=== PATIENT | female | born 1940 | race Caucasian/White ===

== ENCOUNTER → 2020-10-03 10:35 | Outpatient (BNVA) | payer MEDICARE, SELFPAY | PROVIDERS: PCP Internal Medicine; Referring Provider Internal Medicine; Visit Provider Internal Medicine | DX: I25.10 Atherosclerotic heart disease of native coronary artery without angina pectoris (principal); I48.19 Other persistent atrial fibrillation; I11.0 Hypertensive heart disease with heart failure; I50.32 Chronic diastolic (congestive) heart failure; I73.9 Peripheral vascular disease, unspecified; Z79.01 Long term (current) use of anticoagulants; Z79.82 Long term (current) use of aspirin; Z79.899 Other long term (current) drug therapy; Z95.1 Presence of aortocoronary bypass graft | CPT/HCPCS: 99212 ==

== ENCOUNTER 2020-12-11 08:11 | Inpatient (IN) | payer MEDICARE, SELFPAY ==
[2020-12-11] VITALS (10 sets, daily range): BP systolic 113–174; BP diastolic 62–93; PULSE 98–139; RESP 18–26; TEMP 36.6–36.8; O2SAT 92–100; BMI 26.6
--- NOTE | 2020-12-11 08:31 | ED_ITS ---
HPI - SOB/Dyspnea General Chief Complaint: Dyspnea Stated Complaint: sob Time Seen by Provider: 12/11/20 08:31 Source: EMS Mode of arrival: EMS Limitations: no limitations History of Present Illness HPI Narrative: This is a 80-year-old female with past medical history that is significant for congestive heart failure with preserved ejection fraction, peripheral vascular disease, hypertension, hyper cholesterolemia who is status post coronary artery bypass June 2020 also history of atrial fibrillation on chronic anticoagulation on Eliquis who presents from home with complaint of shortness of breath since last night. Patient reports feels very shortness of breath at rest. She denies any chest pain. For past couple days however no other symptoms. No recent travel or sick contacts. Denies any prior history of COPD or asthma. Upon arrival found to have oxygen level of 90 on room air with respiratory rate of 30. On 2 L nasal cannula improved to 95%. MD elicited complaint: shortness of breath Context: recent illness Timing: constant Severity: moderate Treatment prior to arrival: oxygen Related Data Home Medications Medication Instructions Recorded Confirmed apixaban 5 mg tablet 5 mg PO BID 09/04/20 12/11/20 aspirin 81 mg tablet,delayed 81 mg PO DAILY 09/04/20 12/11/20 release lisinopril 5 mg tablet 5 mg PO DAILY 09/04/20 12/11/20 multivitamin 1 tab PO DAILY 09/04/20 12/11/20 omeprazole 20 mg capsule,delayed 20 mg PO DAILY 09/04/20 12/11/20 release sennosides 8.6 mg tablet 8.6 mg PO BEDTIME tab 09/04/20 12/11/20 furosemide 20 mg tablet 20 mg PO QAM tab 12/07/20 12/11/20 metoprolol tartrate 25 mg PO BID 12/11/20 12/11/20 Previous Rx's Medication Instructions Recorded atorvastatin 40 mg tablet 40 mg PO DAILY #30 tab 10/23/20 Allergies Allergy/AdvReac Type Severity Reaction Status Date / Time latex Allergy Mild rash Verified 10/03/20 10:51 simvastatin [Simvastatin] Allergy Mild NAUSEA Verified 10/03/20 10:51 Review of Systems Review of Systems: Constitutional: No Weight loss, No Fever, No Chills, No Night Sweats, No Fatigue, No Malaise ENT/Mouth: No Hearing loss, No Ear Pain, No Nasal Congestion, No Sinus Pain, No Hoarseness, No sore throat, No Rhinorrhea, No Swallowing Difficulty Eyes: No Eye Pain, No Swelling, No Redness, No Foreign Body, No Discharge, No Vision Changes Cardiovascular: No Chest Pain, + SOB, + Dyspnea on Exertion, No Edema, No Palpitations Respiratory: + Cough, No Sputum, + Wheezing Gastrointestinal: No Nausea, No Vomiting, No Diarrhea, No Constipation, No abdominal Pain, No Hematochezia, No Melena Genitourinary: no irregular bleeding, No Dysuria, No Urinary Frequency, No Hematuria, No Urinary Incontinence, No Urgency, No Flank Pain Musculoskeletal: No joint pain, No Myalgias, No Joint Swelling Skin: No Skin Lesions, No rash Neuro: No Weakness, No Numbness, No Paresthesias, No Loss of Consciousness, No Dizziness, No Headache Psych: No Social Issues Heme/Lymph: No Bruising, No Bleeding,No Lymphadenopathy Endocrine: No Polyuria, No Polydipsia, No Temperature Intolerance Yes all other systems are reviewed and are negative [facility] Past Medical History Medical History Atherosclerotic cardiovascular disease Atrial fibrillation Roger's esophagus Bilateral femoral artery stenosis Chronic heart failure with preserved ejection fraction Cognitive impairment Colitis Congestive heart failure Coronary artery disease 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 Mother No problems noted. Social History Social History Alcohol intake: never Smoking Status: Never smoker Use of substances other than those prescribed or required for medical reasons: No Advance Directives: No Advance Directives Information Provided: No Physical Exam Vital Signs: Vital Signs: Last Vital Signs Temp 98.3 F 12/11/20 12:00 Pulse 112 H 12/11/20 13:44 Resp 18 12/11/20 13:44 BP 148/75 H 12/11/20 13:44 Pulse Ox 99 12/11/20 15:40 Body Mass Index 26.6 Reviewed Const: General: cooperative and in distress mild and respiratory; No intoxicated appearing Nutritional Appearance: average body habitus Orie ntation/consciousness: patient oriented x3 HENMT: Head: Yes normal to inspection Ears: hearing grossly normal bilaterally Eyes: General: appearance normal, both eyes and all related structures Visual Multani: normal visual multani by confrontation Neck: Neck: Yes normal visual inspection, No positive Brudzinski's sign, No positive Kernig's sign and No tender Thyroid: Thyroid normal Chest: Chest palpation & inspection: normal inspection of the chest Breas t/axilla inspection: normal inspection of the breasts Resp: Effort & Inspection: normal respiratory effort and Actively coughing (Mild) Quality: dry Auscultation: wheezes expiratory wheezes and left upper Cardio: Jugular venous distension: no JVD Rhythm: abnormal rhythm (AFib 110) regularly irregular GI: Inspection: Yes normal to inspection Percussion: Yes normal to perc ussion Auscultation: normal bowel sounds : General: Yes no CVA tenderness Back/Spine/Pelvis: Back: no CVA tenderness Skin: General skin exam: no rashes or lesions noted Neuro: General: patient oriented x3 Extrem: General: Yes normal to inspection Course Course Course Narrative: 0835 In review this is a 80-year-old female with history of congestive heart failure with preserved EF, coronary artery disease status post CABG, hypertension, hyperlipidemia, atrial fibrillation on Eliquis presenting with 1 day of shortness of breath found to be hypoxic and tachypneic on arrival significantly improved with supplemental oxygen. Slight wheeze in the left upper lobe and mild dry cough otherwise clinically does not appear to be in CHF. Not febrile. I do suspect component of infection, labs including COVID stratification labs ordered, chest x-ray EKG. Will treat with nebs, steroids and supplemental oxygen. Reevaluation(s) Reevaluation #1: 0974 Informed by the nurse that very difficult stick I went over to bedside and established IV line also called by lab labs had hemolyzed speck of the chemistries which was redrawn by me as well. X-ray shows 1. Suspect mild interstitial edema superimposed on chronic interstitial changes. 2. Density right base, favor subsegmental atelectasis. Early infiltrate cannot be excluded. 3. Hiatal hernia. Prior median sternotomy.pected Labs shows BNP of 2785, troponin 653.3 Still tachypneic at 26, still reports mild difficulty with breathing. Patient at this time given Lasix 60 mg IV, nitropaste 1 inch to chest.. No evidence of lactic acidosis, no leukocytosis. Dry CT of the chest ordered for better definition. Reevaluation #2: Age adjusted D-dimer negative. Labs called again labs hemolyzed. Redrawn Feels much better States she feels like she has to void but unable to fully catheter placed and output 1000 mL. Rapid COVID negative. Chest CT findings consistent with ground-glass opacities suggestive of COVID-19. False negative COVID suspected. Reevaluation #3: Symptoms have improved significantly blood pressure has improved, has put out of 2000 cc after IV Lasix/ nitro. Reports feeling much better. Case discussed with hospitalist for admission. Consultations Consultation #1: 1230 Case discussed with hospitalist for admission MDM - SOB/Dyspnea Differential Diagnosis Differential diagnosis: Likely congestive heart failure, pneumonia (Viral synd jed, COVID-19) and pleural effusion; Unlikely pulmonary embolism, sleep apnea and anemia Medical Records Attestation: I reviewed the patient's medical records. Lab Data Attestation: I reviewed the patient's lab results. Result diagrams: 12/11/20 08:58 12/11/20 12:00 Labs: Lab Results 12/11/20 12/11/20 12/11/20 Range/Units 08:58 08:58 08:58 WBC 9.8 (4.8-10.8) X10*3/uL RBC 3.91 L (4.20-5.50) X10*6/uL Hgb 11.2 L (12.0-16.0) g/dl Hct 35.2 L (37-47) % MCV 90.0 (80-98) fL MCH 28.6 (27.0-33.0) pg MCHC 31.8 (31.0-35.0) g/dl RDW 13.8 (11.0-16.0) % Plt Count 286 (160-400) X10*3/uL MPV 9.9 (9.4-12.3) fL Immature Gran % (Auto) 0.3 (0.0-0.4) % Neut % (Auto) 80.8 H (45-73) % Lymph % (Auto) 11.5 L (20-40) % [place] % (Auto) 5.2 (2-11) % Eos % (Auto) 1.8 (0-4) % Baso % (Auto) 0.4 (0-2) % Lymph # (Auto) 1.1 L (1.2-4.9) X10*3/uL [place] # (Auto) 0.5 (0.1-1.2) X10*3/uL Eos # (Auto) 0.2 (0.0-0.4) X10*3/uL Baso # (Auto) 0.0 (0.0-0.2) X10*3/uL Abs Immat Gran (auto) 0.03 (0.00-0.03) X10*3/uL Absolute Neuts (auto) 7.9 (2.0-8.3) X10*3/uL Absolute Nucleated RBC 0.000 (0.0-0.012) X10*3/uL Nucleated RBC % (auto) 0.0 (0.0-0.2) /100WBC PT Cancelled INR Cancelled APTT Cancelled D-Dimer Cancelled Sodium Cancelled Potassium Cancelled Chloride Cancelled Carbon Dioxide Cancelled Anion Gap Cancelled BUN Cancelled Creatinine Cancelled Estim Creat Clear Calc Cancelled Estimated GFR Cancelled Random Glucose Cancelled Lactic Acid (0.5-2.0) mmol/L Calcium Cancelled Ferritin Cancelled Total Bilirubin Cancelled AST Cancelled ALT Cancelled Alkaline Phosphatase Cancelled Lactate Dehydrogenase Cancelled Troponin I High Sens (<3.5-17.0) ng/L C-Reactive Protein Cancelled B-Natriuretic Peptide (<100) pg/mL Total Protein Cancelled Albumin Cancelled Procalcitonin Urine Color Urine Appearance Urine pH (5.0-8.0) Ur Specific [place] (1.005-1.025) Urine Protein (NEG-TRACE) MG/DL Urine Glucose (UA) (NEG) MG/DL Urine Ketones (NEG) MG/DL Urine Blood (NEG) Urine Nitrite (NEG) Ur Leukocyte Esterase (NEG) Urine RBC (0) /HPF Urine WBC (0-4) /HPF Ur Squamous Epith Cells /LPF Urine Bacteria /LPF Coronavirus (PCR) (Negative) Influenza Type A (PCR) (Negative) Influenza Type B (PCR) (Negative) RSV RNA Qual (PCR) (Negative) 12/11/20 12/11/20 12/11/20 Range/Units 08:58 08:58 09:37 WBC (4.8-10.8) X10*3/uL RBC (4.20-5.50) X10*6/uL Hgb (12.0-16.0) g/dl Hct (37-47) % MCV (80-98) fL MCH (27.0-33.0) pg MCHC (31.0-35.0) g/dl RDW (11.0-16.0) % Plt Count (160-400) X10*3/uL MPV (9.4-12.3) fL Immature Gran % (Auto) (0.0-0.4) % Neut % (Auto) (45-73) % Lymph % (Auto) (20-40) % [place] % (Auto) (2-11) % Eos % (Auto) (0-4) % Baso % (Auto) (0-2) % Lymph # (Auto) (1.2-4.9) X10*3/uL [place] # (Auto) (0.1-1.2) X10*3/uL Eos # (Auto) (0.0-0.4) X10*3/uL Baso # (Auto) (0.0-0.2) X10*3/uL Abs Immat Gran (auto) (0.00-0.03) X10*3/uL Absolute Neuts (auto) (2.0-8.3) X10*3/uL Absolute Nucleated RBC (0.0-0.012) X10*3/uL Nucleated RBC % (auto) (0.0-0.2) /100WBC PT INR APTT D-Dimer Sodium Potassium Chloride Carbon Dioxide Anion Gap BUN Creatinine Estim Creat Clear Calc Estimated GFR Random Glucose Lactic Acid 1.4 (0.5-2.0) mmol/L Calcium Ferritin Total Bilirubin AST ALT Alkaline Phosphatase Lactate Dehydrogenase Troponin I High Sens 63.3 H (<3.5-17.0) ng/L C-Reactive Protein B-Natriuretic Peptide 2785 H (<100) pg/mL Total Protein Albumin Procalcitonin Cancelled Urine Color Urine Appearance Urine pH (5.0-8.0) Ur Specific [place] (1.005-1.025) Urine Protein (NEG-TRACE) MG/DL Urine Glucose (UA) (NEG) MG/DL Urine Ketones (NEG) MG/DL Urine Blood (NEG) Urine Nitrite (NEG) Ur Leukocyte Esterase (NEG) Urine RBC (0) /HPF Urine WBC (0-4) /HPF Ur Squamous Epith Cells /LPF Urine Bacteria /LPF Coronavirus (PCR) (Negative) Influenza Type A (PCR) (Negative) Influenza Type B (PCR) (Negative) RSV RNA Qual (PCR) (Negative) 12/11/20 12/11/20 12/11/20 Range/Units 09:45 09:45 09:55 WBC (4.8-10.8) X10*3/uL RBC (4.20-5.50) X10*6/uL Hgb (12.0-16.0) g/dl Hct (37-47) % MCV (80-98) fL MCH (27.0-33.0) pg MCHC (31.0-35.0) g/dl RDW (11.0-16.0) % Plt Count (160-400) X10*3/uL MPV (9.4-12.3) fL Immature Gran % (Auto) (0.0-0.4) % Neut % (Auto) (45-73) % Lymph % (Auto) (20-40) % [place] % (Auto) (2-11) % Eos % (Auto) (0-4) % Baso % (Auto) (0-2) % Lymph # (Auto) (1.2-4.9) X10*3/uL [place] # (Auto) (0.1-1.2) X10*3/uL Eos # (Auto) (0.0-0.4) X10*3/uL Baso # (Auto) (0.0-0.2) X10*3/uL Abs Immat Gran (auto) (0.00-0.03) X10*3/uL Absolute Neuts (auto) (2.0-8.3) X10*3/uL Absolute Nucleated RBC (0.0-0.012) X10*3/uL Nucleated RBC % (auto) (0.0-0.2) /100WBC PT 14.4 H INR 1.2 H APTT 31.8 D-Dimer 543 Sodium Cancelled Potassium Cancelled Chloride Cancelled Carbon Dioxide Cancelled Anion Gap Cancelled BUN Cancelled Creatinine Cancelled Estim Creat Clear Calc Cancelled Estimated GFR Cancelled Random Glucose Cancelled Lactic Acid (0.5-2.0) mmol/L Calcium Cancelled Ferritin Total Bilirubin Cancelled AST Cancelled ALT Cancelled Alkaline Phosphatase Cancelled Lactate Dehydrogenase Troponin I High Sens (<3.5-17.0) ng/L C-Reactive Protein B-Natriuretic Peptide (<100) pg/mL Total Protein Cancelled Albumin Cancelled Procalcitonin Urine Color Urine Appearance Urine pH (5.0-8.0) Ur Specific [place] (1.005-1.025) Urine Protein (NEG-TRACE) MG/DL Urine Glucose (UA) (NEG) MG/DL Urine Ketones (NEG) MG/DL Urine Blood (NEG) Urine Nitrite (NEG) Ur Leukocyte Esterase (NEG) Urine RBC (0) /HPF Urine WBC (0-4) /HPF Ur Squamous Epith Cells /LPF Urine Bacteria /LPF Coronavirus (PCR) NEGATIVE (Negative) Influenza Type A (PCR) NEGATIVE (Negative) Influenza Type B (PCR) NEGATIVE (Negative) RSV RNA Qual (PCR) NEGATIVE (Negative) 12/11/20 12/11/20 12/11/20 Range/Units 10:31 10:31 11:21 WBC (4.8-10.8) X10*3/uL RBC (4.20-5.50) X10*6/uL Hgb (12.0-16.0) g/dl Hct (37-47) % MCV (80-98) fL MCH (27.0-33.0) pg MCHC (31.0-35.0) g/dl RDW (11.0-16.0) % Plt Count (160-400) X10*3/uL MPV (9.4-12.3) fL Immature Gran % (Auto) (0.0-0.4) % Neut % (Auto) (45-73) % Lymph % (Auto) (20-40) % [place] % (Auto) (2-11) % Eos % (Auto) (0-4) % Baso % (Auto) (0-2) % Lymph # (Auto) (1.2-4.9) X10*3/uL [place] # (Auto) (0.1-1.2) X10*3/uL Eos # (Auto) (0.0-0.4) X10*3/uL Baso # (Auto) (0.0-0.2) X10*3/uL Abs Immat Gran (auto) (0.00-0.03) X10*3/uL Absolute Neuts (auto) (2.0-8.3) X10*3/uL Absolute Nucleated RBC (0.0-0.012) X10*3/uL Nucleated RBC % (auto) (0.0-0.2) /100WBC PT INR APTT D-Dimer Sodium Cancelled Potassium Cancelled Chloride Cancelled Carbon Dioxide Cancelled Anion Gap Cancelled BUN Cancelled Creatinine Cancelled Estim Creat Clear Calc Cancelled Estimated GFR Cancelled Random Glucose Cancelled Lactic Acid (0.5-2.0) mmol/L Calcium Cancelled Ferritin Cancelled Total Bilirubin Cancelled AST Cancelled ALT Cancelled Alkaline Phosphatase Cancelled Lactate Dehydrogenase Cancelled Troponin I High Sens (<3.5-17.0) ng/L C-Reactive Protein Cancelled B-Natriuretic Peptide (<100) pg/mL Total Protein Cancelled Albumin Cancelled Procalcitonin 0.03 Urine Color YELLOW Urine Appearance CLEAR Urine pH 6.5 (5.0-8.0) Ur Specific [place] 1.010 (1.005-1.025) Urine Protein NEG (NEG-TRACE) MG/DL Urine Glucose (UA) NEG (NEG) MG/DL Urine Ketones NEG (NEG) MG/DL Urine Blood 1+ H (NEG) Urine Nitrite NEG (NEG) Ur Leukocyte Esterase NEG (NEG) Urine RBC 5-9 H (0) /HPF Urine WBC 0-2 (0-4) /HPF Ur Squamous Epith Cells TRACE /LPF Urine Bacteria NONE /LPF Coronavirus (PCR) (Negative) Influenza Type A (PCR) (Negative) Influenza Type B (PCR) (Negative) RSV RNA Qual (PCR) (Negative) 12/11/20 12/11/2012/11/21 Range/Units 12:00 12:00 13:26 WBC (4.8-10.8) X10*3/uL RBC (4.20-5.50) X10*6/uL Hgb (12.0-16.0) g/dl Hct (37-47) % MCV (80-98) fL MCH (27.0-33.0) pg MCHC (31.0-35.0) g/dl RDW (11.0-16.0) % Plt Count (160-400) X10*3/uL MPV (9.4-12.3) fL Immature Gran % (Auto) (0.0-0.4) % Neut % (Auto) (45-73) % Lymph % (Auto) (20-40) % [place] % (Auto) (2-11) % Eos % (Auto) (0-4) % Baso % (Auto) (0-2) % Lymph # (Auto) (1.2-4.9) X10*3/uL [place] # (Auto) (0.1-1.2) X10*3/uL Eos # (Auto) (0.0-0.4) X10*3/uL Baso # (Auto) (0.0-0.2) X10*3/uL Abs Immat Gran (auto) (0.00-0.03) X10*3/uL Absolute Neuts (auto) (2.0-8.3) X10*3/uL Absolute Nucleated RBC (0.0-0.012) X10*3/uL Nucleated RBC % (auto) (0.0-0.2) /100WBC PT INR APTT D-Dimer Sodium 138 Potassium 3.9 Chloride 100 Carbon Dioxide 27 Anion Gap 15 BUN 19 H Creatinine 1.09 Estim Creat Clear Calc 40.2 Estimated GFR 48 Random Glucose 142 H Lactic Acid (0.5-2.0) mmol/L Calcium 9.1 Ferritin 102 Total Bilirubin 1.5 H AST 31 ALT 28 Alkaline Phosphatase 163 H Lactate Dehydrogenase 310 H Troponin I High Sens 81.3 H (<3.5-17.0) ng/L C-Reactive Protein 0.40 B-Natriuretic Peptide (<100) pg/mL Total Protein 7.8 Albumin 4.1 Procalcitonin Urine Color Urine Appearance Urine pH (5.0-8.0) Ur Specific [place] (1.005-1.025) Urine Protein (NEG-TRACE) MG/DL Urine Glucose (UA) (NEG) MG/DL Urine Ketones (NEG) MG/DL Urine Blood (NEG) Urine Nitrite (NEG) Ur Leukocyte Esterase (NEG) Urine RBC (0) /HPF Urine WBC (0-4) /HPF Ur Squamous Epith Cells /LPF Urine Bacteria /LPF Coronavirus (PCR) (Negative) Influenza Type A (PCR) (Negative) Influenza Type B (PCR) (Negative) RSV RNA Qual (PCR) (Negative) Imaging Data Chest x-ray/chest CT: Radiologist's impression: [place] [id number] XRay Report Signed Patient: Bethany Brooke GMR#: [id number] : 1Acct:[id number] Age/Sex: 80 / FADM Date: 12/11/20 Loc: .ED Attending Dr: Ordering Physician: Liam Rodriguez NP Date of Service: 12/11/20 Procedure(s): XR chest 1V Accession Number(s): [id number] cc: Liam Rodriguez MECHANICAL ARTIST~ EXAMINATION: XR CHEST CLINICAL INFORMATION: Shortness of breath COMPARISON: Chest radiographs 06/10/2020, 04/24/2020, 11/30/2018 TECHNIQUE: Portable upright AP view of the chest was obtained. FINDINGS: There are postsurgical changes with mediastinal clips and atrial appendage clamp. There is even distribution vascularity with peribronchial and perivascular cuffing and fine subpleural Reji B lines better seen on left suggesting mild interstitial edema superimposed upon chronic interstitial changes. There is probable subsegmental atelectasis right base. Early airspace consolidation cannot be excluded. Enlarged cardiopericardial silhouette is stable. Retrocardiac hiatal hernia again suggested. The hilar and mediastinal contours and bony structures are unremarkable. XR/XR chest 1V IMPRESSION: 1. Suspect mild interstitial edema superimposed on chronic interstitial changes. 2. Density right base, favor subsegmental atelectasis. Early infiltrate cannot be excluded. 3. Hiatal hernia. Prior median sternotomy. Dictated By:STEWART DALEY MD Signed By:<Electronically signed by STEWART DALEY MD in [place]>12/11/20931 DD/ 1 TD/TT: Gis Specialist: [address] [address] [address] Scan Report Signed Patient: Bethany Brooke GMR#: [id number] : [id number]:[id number] Age/Sex: 80 / FADM Date: 12/11/20 Loc: HO.ED Attending Dr: Ordering Physician: Liam Rodriguez NP Date of Service: 12/11/20 Procedure(s): CT chest wo con Accession Number(s): [id number] cc: Liam Rodriguez NP~ EXAMINATION: CT CHEST WITHOUT CONTRAST CLINICAL INFORMATION: SOB. COMPARISON: Chest x-ray 12/11/2020 TECHNIQUE: Multidetector volumetric CT imaging of the chest was done. Axial MIP volume rendering provided. Sagittal and coronal reformatted images were obtained. This CT examination was performed using dose optimization techniques as appropriate, variously including the following: *Automated exposure control *Adjustment of mA and/or kV according to patient size (this includes techniques or standardized protocols for targeted exams where dose is matched to indication/reason for exam; i.e. extremities or head) *Use of iterative reconstruction technique DLP: 292 mGy-cm FINDINGS: CAREER TRANSITION SPECIALIST: Hyperinflated lungs with patchy increase interstitial markings. LUNGS: The lungs are hyperinflated with diffuse bilateral increased interstitial markings and patchy groundglass multiple opacities right upper lobe, right lower lobe and right middle lobe. There is mild atelectatic changes in the right middle lobe. MEDIASTINUM: The heart size is normal. The thyroid lobes are symmetrical and normal. The central trachea and the bronchi are widely patent. There are multiple small to enlarged lymph nodes likely reactive. The largest precarinal lymph node measures 1.2 x 1.6 cm axial image 22/ there is atherosclerotic calcification of thoracic arch, coronary arteries and aortic valve. PLEURA: There is moderate bilateral pleural effusion. AXILLA: No lymphadenopathy. UPPER ABDOMEN: Visualized liver, spleen, pancreas and gallbladder appears unremarkable. There is a moderate size hiatal hernia hernia with the entire stomach appearing intrathoracic. OSSEOUS STRUCTURES: There are median sternotomy sutures and mediastinal joel. There are degenerative disc changes and spondylosis throughout dorsal spine. No compression fracture or lytic process seen. CT/CT chest wo con IMPRESSION: Hyperinflated lungs with diffuse bilateral increased interstitial markings and patchy groundglass multiple opacities most suggestive of infectious or inflammatory process. Covid related infection is not excluded. Bilateral moderate pleural effusions. The entire stomach is intrathoracic consistent moderate size hiatal hernia. Dictated By:YANDY JIANG MD Signed By:<Electronically signed by YANDY JIANG MD in [place]>12/11/20 1143 DD/ 0946 TD/TT: Gis Specialist: LEOLA ECG Data Interpretation: AFib with RVR Rate 106 Nonspecific T-wave abnormality in the lateral lead Compared to 06/10/2020 slightly increased QRS duration, T-wave inversion in lateral leads. Critical Care Time Critical Care Time Critical Care Time: Yes Total Critical Care Time: 65 Attestation: Patient arrived in respiratory distress requiring multiple re- evaluation including treatment with diuretics for acute CHF exacerbation. Condition of care and admission. Discharge Plan Discharge Clinical Impression: Atrial fibrillation, Congestive heart failure, COVID-19 Patient Disposition: Admitted As Inpatient
--- NOTE | 2020-12-11 08:32 | ECG_ITS ---
Test Reason : SOB Blood Pressure : / mmHG Vent. Rate : 106 BPM Atrial Rate : 096 BPM P-R Int : 000 ms QRS Dur : 112 ms QT Int : 316 ms P-R-T Axes : 000 -03 100 degrees QTc Int : 419 ms Atrial fibrillation with rapid ventricular response with premature ventricular or aberrantly conducted complexes Anteroseptal infarct (cited on or before 12-MAR-2018) Incomplete left bundle branch block Abnormal ECG When compared with ECG of 10-JUN-2020 08:10, Incomplete left bundle branch block is now Present T wave inversion now evident in Lateral leads QT has shortened Referred By: Liam Rodriguez Electronically Signed By:VAL BUSTAMANTE MD
[2020-12-11 09:04] LABS: MANUAL DIFF FLAG NO
[2020-12-11 09:05] LABS: Basophils Percent Auto 0.4 % (0-2); Eosinophils Absolute Auto 0.2 X10*3/uL (0.0-0.4); Eosinophils Percent Auto 1.8 % (0-4); Hematocrit 35.2 % (37-47); Hemoglobin 11.2 g/dl (12.0-16.0); Imm Gran Abs Auto 0.03 X10*3/uL (0.00-0.03); Imm Gran Pct Auto 0.3 % (0.0-0.4); Lymphocytes Absolute Auto 1.1 X10*3/uL (1.2-4.9); Lymphocytes Percent Auto 11.5 % (20-40); Mean Corpuscular HGB Conc 31.8 g/dl (31.0-35.0); Mean Corpuscular Hemoglobin 28.6 pg (27.0-33.0); Mean Platelet Volume 9.9 fL (9.4-12.3); Monocytes Absolute Auto 0.5 X10*3/uL (0.1-1.2); Monocytes Percent Auto 5.2 % (2-11); Neutrophils Absolute Auto 7.9 X10*3/uL (2.0-8.3); Neutrophils Percent Auto 80.8 % (45-73); Platelet Count 286 X10*3/uL (160-400); Red Blood Count 3.91 X10*6/uL (4.20-5.50); Red Cell Distribution Width 13.8 % (11.0-16.0); White Blood Count 9.8 X10*3/uL (4.8-10.8)
[2020-12-11 09:25] LABS: Lactic Acid 1.4 mmol/L (0.5-2.0)
[2020-12-11] MEDS: methylPREDNISolone Sod Succ/PF 125 MG/2 ML VIAL IVPUSH (09:35)
[2020-12-11 09:37] LABS: Troponin-I High Sensitivity 63.3 ng/L (<3.5-17.0)
[2020-12-11 09:41] LABS: B Type Natriuretic Peptide 2785 pg/mL (<100)
[2020-12-11] MEDS: Albuterol Sulfate 90 MCG 8 GM INHALER 4 PUFF INHALE (09:43)
--- NOTE | 2020-12-11 09:46 | CT_ITS ---
EXAMINATION: CT CHEST WITHOUT CONTRAST CLINICAL INFORMATION: SOB. COMPARISON: Chest x-ray 12/11/2020 TECHNIQUE: Multidetector volumetric CT imaging of the chest was done. Axial MIP volume rendering provided. Sagittal and coronal reformatted images were obtained. This CT examination was performed using dose optimization techniques as appropriate, variously including the following: *Automated exposure control *Adjustment of mA and/or kV according to patient size (this includes techniques or standardized protocols for targeted exams where dose is matched to indication/reason for exam; i.e. extremities or head) *Use of iterative reconstruction technique DLP: 292 mGy-cm FINDINGS: HAND MARKER: Hyperinflated lungs with patchy increase interstitial markings. LUNGS: The lungs are hyperinflated with diffuse bilateral increased interstitial markings and patchy groundglass multiple opacities right upper lobe, right lower lobe and right middle lobe. There is mild atelectatic changes in the right middle lobe. MEDIASTINUM: The heart size is normal. The thyroid lobes are symmetrical and normal. The central trachea and the bronchi are widely patent. There are multiple small to enlarged lymph nodes likely reactive. The largest precarinal lymph node measures 1.2 x 1.6 cm axial image 22/3 there is atherosclerotic calcification of thoracic arch, coronary arteries and aortic valve. PLEURA: There is moderate bilateral pleural effusion. AXILLA: No lymphadenopathy. UPPER ABDOMEN: Visualized liver, spleen, pancreas and gallbladder appears unremarkable. There is a moderate size hiatal hernia hernia with the entire stomach appearing intrathoracic. OSSEOUS STRUCTURES: There are median sternotomy sutures and mediastinal joel. There are degenerative disc changes and spondylosis throughout dorsal spine. No compression fracture or lytic process seen. CT/CT chest wo con IMPRESSION: Hyperinflated lungs with diffuse bilateral increased interstitial markings and patchy groundglass multiple opacities most suggestive of infectious or inflammatory process. Covid related infection is not excluded. Bilateral moderate pleural effusions. The entire stomach is intrathoracic consistent moderate size hiatal hernia.
[2020-12-11] MEDS: Furosemide 40 MG/4 ML VIAL IVPUSH (09:50)
[2020-12-11 10:53] LABS: INTERNATIONAL NORM RATIO 1.2 (0.9-1.1); Prothrombin Time 14.4 SEC (10.8-13.0)
[2020-12-11 10:56] LABS: D Dimer 543 NG/ML; Partial Thromboplastin Time 31.8 SEC (24.1-38.0)
[2020-12-11 11:04] LABS: Influenza A PCR NEGATIVE (Negative); Influenza B PCR NEGATIVE (Negative); Resp Syncy Virus RNA Qual PCR NEGATIVE (Negative); SARS COV2 PCR INHOUSE NEGATIVE (Negative)
[2020-12-11 11:30] LABS: Glucose Urine UA NEG (NEG); Leukocyte Esterase Urine NEG (NEG); Nitrite Urine NEG (NEG); PH 6.5 (5.0-8.0); Urine Blood 1+ (NEG); Urine Ketones NEG (NEG); Urine Protein NEG (NEG-TRACE)
[2020-12-11 11:35] LABS: Appearance Urine CLEAR; Color Urine YELLOW
[2020-12-11 11:36] LABS: Procalcitonin 0.03 ng/mL
[2020-12-11] MEDS: Nitroglycerin 2 % Oint 1 GM Packet 1 INCH TRANSDERMA (11:46)
[2020-12-11] MEDS: Furosemide 20 MG/2 ML VIAL IVPUSH (11:46)
--- NOTE | 2020-12-11 12:08 | PC.NURSE ---
3 gold tubes drawn form straight stick. hand delivered to lab. pt anxious, pale, shallow resp.
[2020-12-11 12:28] LABS: Lactate Dehydrogenase 310 U/L (122-220)
[2020-12-11 12:31] LABS: Alanine Aminotransferase 28 U/L (0-31); Albumin Level 4.1 g/dL (3.5-5.0); Alkaline Phosphatase 163 U/L (39-117); Anion Gap 15 (12-20); Aspartate Amino Transferase 31 U/L (5-31); Bilirubin Total 1.5 mg/dL (0.0-1.0); Blood Urea Nitrogen 19 mg/dL (9-16); Calcium 9.1 mg/dL (8.4-10.2); Carbon Dioxide 27 mmol/L (22-29); Chloride 100 mmol/L (96-108); Creatinine Clr Calc Pharmacy 40.2; Estimated Glomerular Filt Rate 48; Glucose Random 142 mg/dL (60-115); Potassium 3.9 mmol/l (3.3-5.1); Sodium 138 mmol/L (135-145); Total Protein 7.8 g/dL (6.5-8.0)
[2020-12-11 12:31] LABS: Squamous Epithelial Cell Urine TRACE /LPF; WBC Urine 0-2 /HPF (0-4)
[2020-12-11 12:52] LABS: Ferritin 102 ng/mL (10-250)
[2020-12-11 14:09] LABS: Troponin-I High Sensitivity 81.3 ng/L (<3.5-17.0)
[2020-12-11] MEDS: Azithromycin 500 MG in 0.9 % Sodium Chloride 250 ML 125 MG IV (15:30)
--- NOTE | 2020-12-11 15:33 | HP_ITS ---
DATE OF SERVICE: 12/11/2020 CHIEF COMPLAINT: Shortness of breath. HISTORY OF PRESENTING ILLNESS: This is a very pleasant 80-year-old female patient of Dr. Edwin Allen, who presented to [facility] due to acute onset of shortness of breath that started last night. The patient has a significant past medical history including history of diastolic congestive heart failure, peripheral vascular disease, history of coronary artery bypass graft, history of hypercholesterolemia, chronic atrial fibrillation on Eliquis. The patient denies any associated chest discomfort. She denies any fever or chills. She denies any sick contacts. She denies any recent travel. The patient lives at home with family. In the emergency room, the patient was noted to be hypoxic with finger oximetry 90% on room air. She was tachypneic with a respiratory rate of 30. The patient was treated in the emergency room with IV Lasix, oxygen via nasal cannula. Post treatment, the patient currently is feeling better, but complaining of persistent generalized weakness. The patient's laboratory data showed stable electrolytes and renal function. Blood sugar is 142. Her LDH is elevated at 310. C-reactive protein is 0.40 and procalcitonin is 0.03. The patient's BNP significantly elevated at 2785 with an elevated troponin of 63. Repeat troponin is pending. The patient is now being admitted to [facility] due to acute congestive heart failure with preserved EF. The patient's COVID test came back negative, although CT chest showed that the patient has hyperinflated lungs with diffuse bilateral increased interstitial markings and patchy ground-glass multiple opacities suggestive of infectious or inflammatory process. COVID related infection is not excluded. The patient also has moderate bilateral pleural effusion. Therefore, the patient will be admitted to isolation unit with concern for seronegative COVID infection. PAST MEDICAL HISTORY: Significant for: 1. History of persistent atrial fibrillation. 2. History of cognitive impairment. 3. History of coronary artery disease, status post CABG with stable angina. 4. History of hypercholesterolemia. 5. History of hypertension. 6. History of left subclavian artery stenosis. 7. History of bilateral femoral artery stenosis. 8. History of Roger's esophagus. SOCIAL HISTORY: The patient is a former smoker. She denies history of alcohol use. FAMILY HISTORY: The patient denies any family history of premature coronary artery disease. ALLERGIES: THE PATIENT IS ALLERGIC TO LATEX THAT CAUSES A RASH AND SIMVASTATIN THAT CAUSES NAUSEA. MEDICATIONS: On admission are, apixaban 5 mg b.i.d., aspirin 81 mg daily, Lipitor 40 mg daily, calcium carbonate 500 mg daily, Lasix 20 mg daily, lisinopril 5 mg daily, magnesium oxide 400 mg daily, metoprolol 25 mg b.i.d., multivitamin 1 p.o. daily, omeprazole 20 mg daily, and senna 8.6 mg p.o. at bedtime. 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 CVS: The patient denies any chest pain. No palpitation. GASTROINTESTINAL: The patient denies nausea, vomiting, or diarrhea. : The patient denies any urgency and frequency. Rest of all other systems are reviewed and are negative. LABORATORY DATA: Total bilirubin 1.5, alkaline phosphatase 163, LDH 310, random sugar 142, BUN 19, creatinine 1.09. IMAGING STUDIES: As mentioned earlier. A chest x-ray showed mild interstitial edema, superimposed on chronic interstitial changes and a right base density favoring atelectasis, hiatal hernia with prior median sternotomy. ASSESSMENT AND PLAN: This is a 80-year-old female patient with multiple medical problems including coronary artery disease, status post coronary artery bypass graft, history of hypertension, hypercholesterolemia, chronic kidney disease, Roger's esophagus, presented to [facility] due to generalized weakness and shortness of breath. The patient on arrival to the emergency room was noticed to be tachypneic, tachycardic. The patient's CTA chest is suggestive of viral infection like COVID on the COVID serology is negative. The patient's BNP and chest x-ray suggestive of congestive heart failure. The patient will be admitted to isolation unit. 1. Acute on chronic congestive heart failure with preserved EF. The patient will be treated with IV Lasix. We will follow strict I's and O's, daily weight, follow BMP closely. EKG showed incomplete left bundle-branch block troponins are elevated but flat, patient with no chest discomfort, will obtain echocardiogram and cardiology consult. 2. High suspicion for COVID infection. The patient is noted to have elevated D-dimer, elevated LDH, and CT chest suggestive of bilateral ground-glass infiltrates with negative COVID PCR study. The patient will be admitted to isolation unit due to hypoxia. The patient will be treated with dexamethasone and IV azithromycin for possible suppurative bacterial infection. The patient will be monitored closely, will be treated with oxygen via nasal cannula. We will repeat COVID serology at a.m. 3. Persistent atrial fibrillation with rapid ventricular response. The patient will be treated with metoprolol and will continue Eliquis. Follow the patient on telemetry unit and adjust medications. 4. History of hyperlipidemia. The patient will be continued on statins. 5. History of Roger esophagus. The patient will be continued on GI prophylaxis. We will recommend to sit up after every meal. 6. Code status has been discussed and the patient wishes to be a full code. 7. Deep venous thrombosis prophylaxis. The patient is on Eliquis. MD JACOBO Contreras/RAKESH / [id number] MTDD
--- NOTE | 2020-12-11 15:38 | PC.NURSE ---
Pt awake and alert, speech clear. Sitting up at edge of bed, F/C in place draining yellow urine. Remains on oxygen, down to 2L with SPO2 of 98-100%. Breathing equal and unlabored. Antibiotic started as ordered. Will continue to monitor
--- NOTE | 2020-12-11 15:49 | PC.NURSE ---
Shortly after starting Zithromax, patient complaining of itchiness/pain and redness to arm where IV infusing. Patient states arm is very painful and extremely itchy. IV stopped and provider notified. IV removed as patient reporting severe pain to area. Redness noted to inner forearm
--- NOTE | 2020-12-11 16:31 | MHC.CM.PN ---
Met with pt in isolation in ED 2. Covid negative, but some concern for seronegative Covid infection. Pt is A&Ox3. Very pleasant and independent woman. Son, Arnaldo lives with her. Living situation is working out well. Has 5 children who are very helpful. Had coronary bypass surgery in 06/2020 and went to rehab- [facility]. Very good experience and would go there again if necessary. Believes her daughter, Christina, is HCP([phone]). Will F/U in am. D/C plan is home without services. Will evaluate need for rehab/home O2 as hospital course progresses. Will follow for d/c needs.
--- NOTE | 2020-12-11 18:46 | PC.NURSE ---
Pt resting in bed at this time, breathing equal and unlabored. VSS; remains on 2L NC. Pt ate dinner, resting in bed now watching TV. F/C remains draining urine. Will continue to monitor
[2020-12-11] MEDS: Sennosides 8.6 MG TABLET PO (21:15)
[2020-12-11] MEDS: Metoprolol Tartrate 25 MG TABLET PO (21:15)
[2020-12-11] MEDS: Apixaban 5 MG TABLET PO (21:15)
[2020-12-11] MEDS: Melatonin 3 MG TABLET 6 MG PO (21:29)
[2020-12-11] MEDS: traZODone HCL 25 MG HALFTAB PO (21:29)
[2020-12-12] VITALS (10 sets, daily range): BP systolic 91–149; BP diastolic 49–75; PULSE 75–106; RESP 16–18; TEMP 36.4–36.7; O2SAT 93–99; BMI 26.4
[2020-12-12] MEDS: 0.9 % Sodium Chloride Flush 3 ML SYRINGE IVFLUSH ×3 (01:14→17:27)
[2020-12-12 05:10] LABS: Anion Gap 16 (12-20); Blood Urea Nitrogen 25 mg/dL (9-16); Calcium 8.6 mg/dL (8.4-10.2); Carbon Dioxide 27 mmol/L (22-29); Chloride 98 mmol/L (96-108); Creatinine Clr Calc Pharmacy 40.6; Estimated Glomerular Filt Rate 49; Glucose Random 136 mg/dL (60-115); Potassium 3.6 mmol/l (3.3-5.1); Sodium 137 mmol/L (135-145)
[2020-12-12 05:15] LABS: B Type Natriuretic Peptide 2571 pg/mL (<100)
--- NOTE | 2020-12-12 09:01 | P.CDIC_ITS ---
CDI Concurrent Query Service Date: 12/12/20 Documentation Clarification: Please clarify if you are treating a proba ble/suspected/likely or confirmed: Acute Hypoxic Respiratory Failure No Acute Hypoxic Respiratory Failure Provider Response: Acute Respiratory Failure PLEASE DO NOT DELETE/MODIFY EXISTING CONTENT Additional information is needed in order to code to the highest accuracy and appropriate Severity of Illness (SOI). Please clarify the information noted below in your progress notes and discharge summary. Risk Factors/Clinical Indicators/Treatments 80 year old female admitted with SOB, respiratory rate 30 - 18, SAT 90% room air, treated with oxygen at 2L nasal cannula LA 1.4 CXR: ground glass opacities COVID negative Per H&P: Acute on Chronic CHF with preserved EF, high suspicion for COVID, Hypoxia, Persistent Atrial Fibrillation CDS: Aubrie Mcduffie RN Contact Number: [phone] Please Review the information above and exercise your independent professional judgment in responding to the query. If you concur, pleas document in the PROGRESS NOTES and DISCHARGE SUMMARY. If you do not agree with the query, please document in the query above. THIS QUERY IS PART OF THE PERMANENT MEDICAL RECORD
[2020-12-12] MEDS: Omeprazole 20 MG CAPSULE.DR PO (09:08)
[2020-12-12] MEDS: Apixaban 5 MG TABLET PO ×2 (09:08→23:24)
[2020-12-12] MEDS: Atorvastatin Calcium 40 MG TABLET PO (09:08)
[2020-12-12] MEDS: Aspirin Enteric Coated 81 MG TABLET.DR PO (09:08)
[2020-12-12] MEDS: Multivitamin TABLET 1 TAB PO (09:08)
[2020-12-12] MEDS: Metoprolol Tartrate 25 MG TABLET PO (09:09)
--- NOTE | 2020-12-12 09:16 | MHC.CM.PN ---
HCP on file. Daughter, Aida Calderon ([phone])
[2020-12-12 10:33] LABS: COVID-19 Test Negative (Negative); IDNOW Serial# 9DD0AD1C
--- NOTE | 2020-12-12 12:45 | MHC.CM.PN ---
Patient is on IV Lasix and O2 at 2 liters for CHF. Discharge plan is home without services. Family will provide transport. CM will continue to follow patient for discharge needs.
--- NOTE | 2020-12-12 16:23 | HO.PM.IMPN ---
Subjective Subjective Date of Service: 12/13/20 Interval History: Patient admitted with acute onset of shortness of breath feeling significantly better this a.m. denies any chest pain, no shortness of breath. Review of Systems General no headache, no dizziness no fever chills. CVS no chest pain, no palpitation. Respiratory no cough, no shortness of breath. Gastrointestinal no nausea, no vomiting, no abdominal pain Physical Exam Vital Signs: Vital Signs: Last Vital Signs Temp 97.7 F 12/12/20 15:24 Pulse 83 12/12/20 15:24 Resp 18 12/12/20 15:24 BP 91/52 L 12/12/20 15:24 Pulse Ox 94 12/12/20 15:24 Body Mass Index 26.4 General patient resting comfortably,no acute distress. Neck is supple no JVD. CVS irregular rate rhythm, Respiratory lungs clear to auscultation, no respiratory distress, diminished breath sounds. Gastrointestinal abdomen soft, nontender, bowel sounds audible Extremities no clubbing cyanosis or edema. Neuro nonfocal Skin no rash Objective Data Current Medications Generic Name Dose Route Start Last Admin Trade Name Freq PRN Reason Stop Dose Admin Acetaminophen 650 mg 12/11/20 13:44 Acetaminophen 325 Mg Tablet PO Q6H PRN Pain, Mild (Pain Scale 1-3) Apixaban 5 mg 12/11/20 21:00 12/12/20 09:08 Apixaban 5 Mg Tablet PO 5 mg BID KARLIE Administration Aspirin 81 mg 12/12/20 09:00 12/12/20 09:08 Aspirin Enteric Coated 81 Mg Tablet.Dr PO 81 mg DAILY KARLIE Administration Atorvastatin Calcium 40 mg 12/12/20 09:00 12/12/20 09:08 Atorvastatin Calcium 40 Mg Tablet PO 40 mg DAILY KARLIE Administration Lisinopril 5 mg 12/12/20 09:00 12/12/20 09:10 Lisinopril 5 Mg Tablet PO 5 mg DAILY KARLIE Administration Protocol Magnesium Hydroxide 30 ml 12/11/20 13:44 Milk Of Magnesia 30 Ml Oral.Susp PO DAILY PRN Constipation Metoprolol Tartrate 25 mg 12/11/20 21:00 12/12/20 09:09 Metoprolol Tartrate 25 Mg Tablet PO 25 mg BID KARLIE Administration Protocol Multivitamins/Vitamin C 1 tab 12/12/20 09:00 12/12/20 09:08 Multivitamin Tablet PO 1 tab DAILY KARLIE Administration Omeprazole 20 mg 12/12/20 06:30 12/12/20 09:08 Omeprazole 20 Mg Capsule. PO 20 mg DAILY@0630 KARLIE Administration Ondansetron HCl 4 mg 12/11/20 13:44 Ondansetron Hcl 4 Mg/2 Ml Vial IVPUSH Q8H PRN Nausea and Vomiting Pharmacy Consult 1 each 12/11/20 12:35 Consult Rx Perform Med Rec MISCELLANE ONCE PRN Consult order Senna 8.6 mg 12/11/20 21:00 12/11/20 21:15 Sennosides 8.6 Mg Tablet PO 8.6 mg BEDTIME KARLIE Administration Sodium Chloride 3 ml 12/11/20 16:00 12/12/20 09:08 0.9 % Sodium Chloride Flush 3 Ml Syringe IVFLUSH 3 ml QSHIFT KARLIE Administration Labs CBC & Chem 7: 12/11/20 08:58 12/12/20 04:22 Microbiology Microbiology Results: Microbiology 12/11/20 09:37 Blood - Venous Blood Culture - Preliminary No growth after 24 hours. 12/11/20 09:38 Blood - Venous Blood Culture - Preliminary No growth after 24 hours. Assessment and Plan (1) Chronic heart failure with preserved ejection fraction: Status: Acute (2) Persistent atrial fibrillation: Status: Acute (3) Status post aorto-coronary artery bypass graft: Status: Acute (4) Atherosclerotic cardiovascular disease: Status: Acute (5) Acute respiratory failure with hypoxia: Status: Acute Assessment and Plan: 1. Acute on chronic congestive heart failure with preserved EF. Shortness of breath resolved no episode of chest pain, patient feeling significantly better did not put out much with IV Lasix noted to have low blood pressure therefore will hold IV Lasix today Follow clinical course obtain cardiology consultation and echocardiogram follow weight, i/os BMP closely. Elevated troponin but flat, EKG showed incomplete left bundle branch block patient will need outpatient ischemia workup case discussed with Cardiology. 2. High suspicion for COVID infection. Shortness of breath resolved however on admission noted to have elevated D-dimer, elevated LDH, and CT chest suggestive of bilateral ground-glass infiltrates negative COVID PCR study. Will repeat rapid COVID test today. 3. Persistent atrial fibrillation with rapid ventricular response. Patient only had 1 episode of rapid AFib since stent tele monitor showed stable heart rate will continue Eliquis hold metoprolol due to low blood pressure continue tele monitor for for now. 4. History of hyperlipidemia. statins. 5. History of Roger esophagus. Continue PPI 6. Code status has been discussed and the patient wishes to be a full code. 7. Deep venous thrombosis prophylaxis. The patient is on Eliquis.
[2020-12-12] MEDS: Sennosides 8.6 MG TABLET PO (23:25)
--- NOTE | 2020-12-13 | XR_ITS ---
EXAMINATION: XR CHEST CLINICAL INFORMATION: Follow-up pleural effusion and CT findings of 12/11/2020. COMPARISON: CT scan of 12/11/2020 and chest x-rays dating back to 06/07/2016. TECHNIQUE: 2 views of the chest were obtained. FINDINGS: The cardiopericardial silhouette is enlarged. There is some increased interstitial markings seen bilaterally similar to prior study dating back to 09/26/2017 which appears to be a combination of chronic interstitial lung disease and some mild interstitial edema. There is a large hiatal hernia seen. There appears to be a small left pleural effusion. No definite right pleural effusion is seen. The known bilateral pleural effusions on CT scan are more prominent than plain film finding. Patient status post median sternotomy. Right atrial appendage clip seen in place. No pneumothorax. There is calcific bursitis of the left shoulder. Mitral annulus calcification present. XR/XR chest 2V IMPRESSION: Cardiomegaly with some mild interstitial disease which appears to be a combination of chronic interstitial lung disease and question mild interstitial edema. No pleural effusions not as evident on this plain study film compared to CT scan of 12/11/2020. Large hiatal hernia.
[2020-12-13] MEDS: 0.9 % Sodium Chloride Flush 3 ML SYRINGE IVFLUSH ×2 (00:09→08:27)
[2020-12-13 03:16] VITALS: BP 120/58; PULSE 82; RESP 18; TEMP 36.8; O2SAT 94
[2020-12-13 05:56] VITALS: BMI 25.4
[2020-12-13 06:39] LABS: Cholesterol 107 mg/dL; HDL Cholesterol 39 mg/dL; LDL Cholesterol Calculated 56 mg/dl; Triglycerides 63 mg/dL
[2020-12-13 08:00] VITALS: BP 115/55; PULSE 88; RESP 16; TEMP 36.7; O2SAT 93
[2020-12-13] MEDS: Atorvastatin Calcium 40 MG TABLET PO (08:26)
[2020-12-13 08:27] VITALS: BP 115/55; PULSE 83
[2020-12-13] MEDS: Multivitamin TABLET 1 TAB PO (08:27)
[2020-12-13] MEDS: Apixaban 5 MG TABLET PO (08:27)
[2020-12-13] MEDS: Aspirin Enteric Coated 81 MG TABLET.DR PO (08:27)
[2020-12-13] MEDS: Metoprolol Tartrate 25 MG TABLET PO (08:27)
[2020-12-13] MEDS: Omeprazole 20 MG CAPSULE.DR PO (08:27)
--- NOTE | 2020-12-13 11:13 | P.CONCA_ITS ---
History of Present Illness History of Present Illness Date of Service: 12/13/20 Requesting physician: Familia Hansen Consult reason: atrial fibrillation and congestive heart failure Chief complaint: Acute on chronic CHF W/preserved EF Narrative: We were consulted to see Bethany for sudden-onset shortness of breath and congestive heart failure with elevated BNP with prior cardiac history. She is a 80-year-old female who says that she got short of breath overnight and then suddenly got very short of breath could not breathe and came to emergency room. She was noted to be hypoxemic and with significant elevated BNP. She was admitted and diuresed. EKG showed incomplete left bundle-branch block. Troponins are flat. She has persistent chronic atrial fibrillation. She has been taking all her medications including Lasix. She did not notice any weight gain, abdominal distention, leg edema. No chest discomfort. No palpitations no other systemic symptoms. Unclear any prodromall symptoms. She has been diuresed in what appears to be about a L and she feels a lot better today. She came in with slightly elevated blood pressure. Blood pressure currently is well optimized. Remains in atrial fibrillation. Review of Systems Constitutional: Constitutional: Denies body ache(s), Denies chills, Denies fever(s), Denies weight gain and Denies weight loss Cardiovascular: Cardiovascular: Denies Abdominal Distension, Denies chest pain, Denies edema, Denies irregular heart rhythm, Denies leg edema, Denies lightheadedness, Denies palpitations and Reports dyspnea Respiratory: Respiratory: Denies cough and Reports dyspnea Gastrointestinal: Gastrointestinal: Reports no additional gastrointestinal complaints Musculoskeletal: Musculoskeletal: Reports no additional musculoskeletal complaints Neurologic: Reports system reviewed and no additional complaints, except as documented Psychiatric: Psychiatric: Reports no additional psychiatric complaints Endocrine: Endocrine: Reports no additional endocrine complaints and Denies palpitations PMF Past Medical History Medical History Atherosclerotic cardiovascular disease Atrial fibrillation Roger's esophagus Bilateral femoral artery stenosis Chronic heart failure with preserved ejection fraction Cognitive impairment Colitis Congestive heart failure Coronary artery disease Coronary artery disease of bypass graft of [place] heart with stable angina pectoris Essential hypertension Hypercholesterolemia Hypertension Peripheral vascular disease Persistent atrial fibrillation Subclavian artery stenosis, left Family History Family History Father No problems noted. Mother No problems noted. Surgical History Surgical History History of coronary artery bypass graft (~06/2020) Status post aorto-coronary artery bypass graft Social History Social History Household Members: Children Housing: House Do you presently have visiting nurse or other home services: No Alcohol intake: never Smoking Status: Never smoker Use of substances other than those prescribed or required for medical reasons: No Currently Displaying Signs/Symptoms of Drug Intoxication Withdrawal: No Have you been hit, kicked, punched, or otherwise hurt by someone within the past year? If so, by whom?: No Do you feel safe in your current relationship?: No Current Relationship Is there a partner from a previous relationship who is making you feel unsafe now?: No Are you made to feel afraid or neglected: No Advance Directives: No Advance Directives Information Provided: No Advance Directives on File: No Do you have thoughts of harming others: None Do you have a plan to hurt others: No Plan Recently lost weight without trying: No service: No Current occupational status: retired Meds Allergies Allergy/AdvReac Type Severity Reaction Status Date / Time latex Allergy Mild rash Verified 10/03/20 10:51 simvastatin [Simvastatin] Allergy Mild NAUSEA Verified 10/03/20 10:51 Home Medications Medication Instructions Recorded Confirmed Type apixaban 5 mg tablet 5 mg PO BID 09/04/20 12/11/20 History aspirin 81 mg tablet,delayed 81 mg PO DAILY 09/04/20 12/11/20 History release lisinopril 5 mg tablet 5 mg PO DAILY 09/04/20 12/11/20 History multivitamin 1 tab PO DAILY 09/04/20 12/11/20 History omeprazole 20 mg capsule,delayed 20 mg PO DAILY 09/04/20 12/11/20 History release sennosides 8.6 mg tablet 8.6 mg PO BEDTIME tab 09/04/20 12/11/20 History furosemide 20 mg tablet 20 mg PO QAM tab 12/07/20 12/11/20 History metoprolol tartrate 25 mg PO BID 12/11/20 12/11/20 History Physical Exam Vital Signs: Vital Signs: Last Vital Signs Temp 98.0 F 12/13/20 08:00 Pulse 83 12/13/20 08:27 Resp 16 12/13/20 08:00 BP 115/55 L 12/13/20 08:27 Pulse Ox 93 12/13/20 08:00 Body Mass Index 25.4 Const: General: cooperative, comfortable, no acute distress, alert and awake Nutritional Appearance: average body habitus Orientation/consciousness: patient oriented x3 Limitations: no limitations HENMT: Head: Yes normocephalic and Yes atraumatic Neck: Neck: Yes trachea midline, Yes supple and Yes no JVD Resp: Effort & Inspection: normal respiratory effort Auscultation: clear to auscultation bilaterally Cardio: Jugular venous distension: no JVD Palpation: normal PMI Rhythm: abnormal rhythm irregularly irregular Heart sounds: S1 normal heart sound present, S2 normal heart sound present and Other heart sounds present (Well- healed sternotomy scar) Skin: General skin exam: no rashes or lesions noted Neuro: General: patient oriented x3 and no focal motor deficits Psych: Appearance: grossly normal Results Labs and Meds Result diagrams: 12/11/20 08:58 12/12/20 04:22 Lab results: Laboratory Results - last 24 hr 12/13/20 05:28 Triglycerides 63 Cholesterol 107 LDL Cholesterol, Calc 56 HDL Cholesterol 39 Imaging Radiologist's impression: Impressions Chest X-Ray 12/13/20 00:00 IMPRESSION: Cardiomegaly with some mild interstitial disease which appears to be a combination of chronic interstitial lung disease and question mild interstitial edema. No pleural effusions not as evident on this plain study film compared to CT scan of 12/11/2020. Large hiatal hernia. EKG shows atrial fibrillation rapid ventricular response. Assessment and Plan (1) Acute respiratory failure with hypoxia: Status: Acute Acute respiratory failure with hypoxia secondary to congestive heart failu re. This is improved significantly. She looks better and currently appears to be euvolemic and well compensated. See below. (2) CHF exacerbation: Status: Acute Sudden onset CHF exacerbation without any clear prodrome with no significant weight gain, fluid gain, abdominal distention leg edema. Unclear is sedated etiology. Ischemia is likely. Renal artery stenosis also likely inpatient engel vascular disease. Currently appears to be euvolemic. We discussed about heart failure management and prevention. Advised to avoid salt loading. She understands. Patient appears well compensated to be discharged ho or. Ambulate and if she does well with hypoxemia can be discharged. Increase Lasix to 40 mg daily. Add Aldactone 12.5 mg to her regimen. Will review echocardiogram. Will require outpatient ischemic workup to rule out early graft closure although unlikely. This was discussed with her. She is agreeable and understands. (3) Atrial fibrillation: Status: Acute Atrial fibrillation, now rate controlled. On presentation she had rapid ventricular response most likely due to acute distress. Continue rate control with metoprolol. Currently on full oral anticoagulation with Eliquis, 5 mg b.i.d.. Continue the same. (4) Coronary artery disease: Qualifiers: Coronary Disease-Associated Artery/Lesion type: [place] artery [place] vs. transplanted heart: [place] heart Associated angina: with stable angina Qualified Code(s): I25.118 - Atherosclerotic heart disease of [place] coronary artery with other forms of angina pectoris Problem details: nuclear stress distal anterior and apical ischemia March 2019 Status: Acute CAD status post 2 vessel coronary bypass grafting for severe left main stenosis. Presents with acute heart failure again. Concern for myocardial ischemia will be pursued as outpatient with myocardial perfusion imaging. Continue low-dose aspirin therapy for now. Blood pressure is currently well optimized. LDL is well optimized. Patient can be discharged home will follow-up next week in the office.
[2020-12-13 12:00] VITALS: BP 104/50; PULSE 76; RESP 17; TEMP 36.6; O2SAT 96
--- NOTE | 2020-12-13 14:00 | CA_ITS ---
Transthoracic Echocardiogram Patient (Last, First, Middle): Bethany Brooke G Gender: Female Date of : 1940 Age: 80 Procedure Date: 12/13/2020 Procedure Type: Transthoracic Echocardiogram Location: [facility] [place] Height: 162.56 cm Weight: 67.13 kg BSA: 1.72 m2 Heart Rate: bpm BP: 120 / 58 mmHg Infant Lead Teacher: KIRSTIE Referring MD: Familia Hansen MD Symptoms: sob new incompletre LBB Study Quality: Good ECG Rhythm: Atrial Fibrillation Conclusions: - 1. Normal LV systolic function 2. Mildly elevated right ventricular systolic pressure Findings Left Ventricle The visually estimated ejection fraction is between 55-60%. There is paradoxical septal motion consistent with post-operative status. Elevated filling pressures. Tricuspid Valve There is mild tricuspid valve regurgitation. Mild pulmonary hypertension is present. Venous The inferior vena cava is normal in size and collapses greater than 50% with inspiration. Prior Study Comparison Changes noted compared to prior study dated: 08/29/2020. RV systolic pressure is mildly elevated Measurements 2D Linear Measurements IVSd: 1.10 0.6-0.9/0.6-1.0 cm LVIDd: 3.58 3.9-5.3/4.2-5.9 cm LVIDd Index: 2.08 2.4-3.2/2.2-3.1 cm/m2 LVIDs: 2.65 2.0-3.6 cm LVPWd: 1.11 0.7-1.1 cm LV Mass: 154.15 67-162/88-224 g LV Mass Index: 89.62 43-95/49-115 g/m2 2D Systolic Function EF 4C: 54.70 >55% EF 2C: 47.30 >55% Tricuspid Valve TR Pk Shon: 3.19 TR Pk Grad: 41.00 RA Press: 3.00 RVSP: 44.00 Updated in Other Vendor System with Status of Final Vaughn Guevara MD electronically signed on 12/14/2020 9:47:03 AM with status of Final
--- NOTE | 2020-12-13 15:14 | P.DS_ITS ---
DS: Providers Provider Date of Service: 12/13/20 Date of admission: 12/11/20 13:44 Primary care physician: Edwin Allen MD Consults: 12/12/20 16:29 Consult to Cardiology Routine Consulting Provider: Vaughn Guevara Reason for consultation: sob new ekg changes Has provider been notified: No DS: Diagnosis Discharge Diagnosis (1) Acute respiratory failure with hypoxia: Status: Acute (2) CHF exacerbation: Status: Acute (3) Atrial fibrillation: Status: Acute (4) Coronary artery disease: Status: Acute Problem details: nuclear stress distal anterior and apical ischemia March 2019 DS: Medications Discharge Medications Home Medications: Home Medications Medication Instructions Recorded Confirmed apixaban 5 mg tablet 5 mg PO BID 09/04/20 12/11/20 aspirin 81 mg tablet,delayed 81 mg PO DAILY 09/04/20 12/11/20 release lisinopril 5 mg tablet 5 mg PO DAILY 09/04/20 12/11/20 multivitamin 1 tab PO DAILY 09/04/20 12/11/20 omeprazole 20 mg capsule,delayed 20 mg PO DAILY 09/04/20 12/11/20 release sennosides 8.6 mg tablet 8.6 mg PO BEDTIME tab 09/04/20 12/11/20 furosemide 20 mg tablet 20 mg PO QAM tab 12/07/20 12/11/20 metoprolol tartrate 25 mg PO BID 12/11/20 12/11/20 Previous Rx's Medication Instructions Recorded atorvastatin 40 mg tablet 40 mg PO DAILY #30 tab 10/23/20 DS: Summary Hospital Course Hospital Course: History of presenting illness 80-year-old female patient of Dr. Edwin Allen, who presented to [facility] due to acute onset of shortness of breath that started last night. The patient has a significant past medical history including history of diastolic congestive heart failure, peripheral vascular disease, history of coronary artery bypass graft, history of hypercholesterolemia, chronic atrial fibrillation on Eliquis. The patient denies any associated chest discomfort. She denies any fever or chills. She denies any sick contacts. She denies any recent travel. The patient lives at home with family. In the emergency room, the patient was noted to be hypoxic with finger oximetry 90% on room air. She was tachypneic with a respiratory rate of 30. The patient was treated in the emergency room with IV Lasix,oxygen via nasal cannula. Post treatment, the patient currently is feeling better, but complaining of persistent generalized weakness. The patient's laboratory data showed stable electrolytes and renal function. Blood sugar is 142. Her LDH is elevated at 310. C-reactive protein is 0.40 and procalcitonin is 0.03. The patient's BNP significantly elevated at 2785 with an elevatedtroponin of 63. Repeat troponin is pending. The patient is now being admitted to [facility] due to acute congestive heart failure with preserved EF.The patient's COVID test came back negative, although CT chest showed that the patient has hyperinflated lungs with diffuse bilateral increased interstitial markings and patchy ground-glass multiple opacities suggestive of infectious or inflammatory process. COVID related infection is not excluded. The patient also has moderate bilateral pleural effusion. Therefore, the patient will be admitted to isolation unit with concern for seronegative COVID infection. Hospital course Acute on chronic congestive heart failure with preserved EF Patient presented to [facility] with acute onset of shortness of breath with no associated chest discomfort no recent weight gain no PND or orthopnea, was noted to have elevated BNP , her troponin were elevated but remain flat patient was treated with IV Lasix put out significant amount of urine however her symptoms improved rapidly over the course of 24 hours currently patient is feeling significantly better, patient was also noted to have a short burst of tachycardia likely atrial fibrillation with rapid ventricular response, patient evaluated by Dr. Ceja he recommend to increase dose of Lasix to 40 mg and to add low-dose Aldactone, an echocardiogram obtained will be reviewed by Cardiology as outpatient, patient will also undergo ischemic workup as outpatient. Persistent atrial fibrillation rate controlled will continue Eliquis and metoprolol Presumed COVID due to abnormal CT chest but COVID serology came back negative. In regard to chronic medical issues including hyperlipidemia and Roger's esophagus patient will be continued on home medication. Time Spent with Patient Time attestation: Total time spent providing and/or coordinating discharge services: Discharge coordination time: Greater than 30 minutes Physical Exam 2 Vital Signs: Vital Signs: Last Vital Signs Temp 97.9 F 12/13/20 12:00 Pulse 76 12/13/20 12:00 Resp 17 12/13/20 12:00 BP 104/50 L 12/13/20 12:00 Pulse Ox 96 12/13/20 12:00 Body Mass Index 25.4 General no acute distress. Neck is supple no JVD. CVS irregular Respiratory lungs clear to auscultation, no respiratory distress Gastrointestinal abdomen soft, nontender, bowel sounds audible, Extremities no clubbing cyanosis or edema. Neuro nonfocal patient moving all 4 extremity speech clear. Skin no rash DS: Data Data Completed and Pending Labs on day of discharge: Laboratory Tests 12/11/20 12/11/20 12/11/20 08:58 08:58 08:58 WBC 9.8 RBC 3.91 L Hgb 11.2 L Hct 35.2 L MCV 90.0 MCH 28.6 MCHC 31.8 RDW 13.8 Plt Count 286 MPV 9.9 Immature Gran % (Auto) 0.3 Neut % (Auto) 80.8 H Lymph % (Auto) 11.5 L Ramsey % (Auto) 5.2 Eos % (Auto) 1.8 Baso % (Auto) 0.4 Lymph # (Auto) 1.1 L Ramsey # (Auto) 0.5 Eos # (Auto) 0.2 Baso # (Auto) 0.0 Abs Immat Gran (auto) 0.03 Absolute Neuts (auto) 7.9 Absolute Nucleated RBC 0.000 Nucleated RBC % (auto) 0.0 PT Cancelled INR Cancelled APTT Cancelled D-Dimer Cancelled Sodium Cancelled Potassium Cancelled Chloride Cancelled Carbon Dioxide Cancelled Anion Gap Cancelled BUN Cancelled Creatinine Cancelled Estim Creat Clear Calc Cancelled Estimated GFR Cancelled Random Glucose Cancelled Lactic Acid Calcium Cancelled Ferritin Cancelled Total Bilirubin Cancelled AST Cancelled ALT Cancelled Alkaline Phosphatase Cancelled Lactate Dehydrogenase Cancelled Troponin I High Sens C-Reactive Protein Cancelled B-Natriuretic Peptide Total Protein Cancelled Albumin Cancelled Triglycerides Cholesterol LDL Cholesterol, Calc HDL Cholesterol Procalcitonin Urine Color Urine Appearance Urine pH Ur Specific [place] Urine Protein Urine Glucose (UA) Urine Ketones Urine Blood Urine Nitrite Ur Leukocyte Esterase Urine RBC Urine WBC Ur Squamous Epith Cells Urine Bacteria Coronavirus (PCR) COVID-19 ([facility]) COVID-19 Clin Com Influenza Type A (PCR) Influenza Type B (PCR) RSV RNA Qual (PCR) 12/11/20 12/11/20 12/11/20 08:58 08:58 09:37 WBC RBC Hgb Hct MCV MCH MCHC RDW Plt Count MPV Immature Gran % (Auto) Neut % (Auto) Lymph % (Auto) Ramsey % (Auto) Eos % (Auto) Baso % (Auto) Lymph # (Auto) Ramsey # (Auto) Eos # (Auto) Baso # (Auto) Abs Immat Gran (auto) Absolute Neuts (auto) Absolute Nucleated RBC Nucleated RBC % (auto) PT INR APTT D-Dimer Sodium Potassium Chloride Carbon Dioxide Anion Gap BUN Creatinine Estim Creat Clear Calc Estimated GFR Random Glucose Lactic Acid 1.4 Calcium Ferritin Total Bilirubin AST ALT Alkaline Phosphatase Lactate Dehydrogenase Troponin I High Sens 63.3 H C-Reactive Protein B-Natriuretic Peptide 2785 H Total Protein Albumin Triglycerides Cholesterol LDL Cholesterol, Calc HDL Cholesterol Procalcitonin Cancelled Urine Color Urine Appearance Urine pH Ur Specific [place] Urine Protein Urine Glucose (UA) Urine Ketones Urine Blood Urine Nitrite Ur Leukocyte Esterase Urine RBC Urine WBC Ur Squamous Epith Cells Urine Bacteria Coronavirus (PCR) COVID-19 ([facility]) COVID-19 Clin Com Influenza Type A (PCR) Influenza Type B (PCR) RSV RNA Qual (PCR) 12/11/20 12/11/20 12/11/20 09:45 09:45 09:55 WBC RBC Hgb Hct MCV MCH MCHC RDW Plt Count MPV Immature Gran % (Auto) Neut % (Auto) Lymph % (Auto) Ramsey % (Auto) Eos % (Auto) Baso % (Auto) Lymph # (Auto) Ramsey # (Auto) Eos # (Auto) Baso # (Auto) Abs Immat Gran (auto) Absolute Neuts (auto) Absolute Nucleated RBC Nucleated RBC % (auto) PT 14.4 H INR 1.2 H APTT 31.8 D-Dimer 543 Sodium Cancelled Potassium Cancelled Chloride Cancelled Carbon Dioxide Cancelled Anion Gap Cancelled BUN Cancelled Creatinine Cancelled Estim Creat Clear Calc Cancelled Estimated GFR Cancelled Random Glucose Cancelled Lactic Acid Calcium Cancelled Ferritin Total Bilirubin Cancelled AST Cancelled ALT Cancelled Alkaline Phosphatase Cancelled Lactate Dehydrogenase Troponin I High Sens C-Reactive Protein B-Natriuretic Peptide Total Protein Cancelled Albumin Cancelled Triglycerides Cholesterol LDL Cholesterol, Calc HDL Cholesterol Procalcitonin Urine Color Urine Appearance Urine pH Ur Specific [place] Urine Protein Urine Glucose (UA) Urine Ketones Urine Blood Urine Nitrite Ur Leukocyte Esterase Urine RBC Urine WBC Ur Squamous Epith Cells Urine Bacteria Coronavirus (PCR) NEGATIVE COVID-19 ([facility]) COVID-19 Clin Com Influenza Type A (PCR) NEGATIVE Influenza Type B (PCR) NEGATIVE RSV RNA Qual (PCR) NEGATIVE 12/11/20 12/11/20 12/11/20 10:31 10:31 11:21 WBC RBC Hgb Hct MCV MCH MCHC RDW Plt Count MPV Immature Gran % (Auto) Neut % (Auto) Lymph % (Auto) Ramsey % (Auto) Eos % (Auto) Baso % (Auto) Lymph # (Auto) Ramsey # (Auto) Eos # (Auto) Baso # (Auto) Abs Immat Gran (auto) Absolute Neuts (auto) Absolute Nucleated RBC Nucleated RBC % (auto) PT INR APTT D-Dimer Sodium Cancelled Potassium Cancelled Chloride Cancelled Carbon Dioxide Cancelled Anion Gap Cancelled BUN Cancelled Creatinine Cancelled Estim Creat Clear Calc Cancelled Estimated GFR Cancelled Random Glucose Cancelled Lactic Acid Calcium Cancelled Ferritin Cancelled Total Bilirubin Cancelled AST Cancelled ALT Cancelled Alkaline Phosphatase Cancelled Lactate Dehydrogenase Cancelled Troponin I High Sens C-Reactive Protein Cancelled B-Natriuretic Peptide Total Protein Cancelled Albumin Cancelled Triglycerides Cholesterol LDL Cholesterol, Calc HDL Cholesterol Procalcitonin 0.03 Urine Color YELLOW Urine Appearance CLEAR Urine pH 6.5 Ur Specific [place] 1.010 Urine Protein NEG Urine Glucose (UA) NEG Urine Ketones NEG Urine Blood 1+ H Urine Nitrite NEG Ur Leukocyte Esterase NEG Urine RBC 5-9 H Urine WBC 0-2 Ur Squamous Epith Cells TRACE Urine Bacteria NONE Coronavirus (PCR) COVID-19 ([facility]) COVID-19 Clin Com Influenza Type A (PCR) Influenza Type B (PCR) RSV RNA Qual (PCR) 12/11/20 12/11/20 12/11/20 12:00 12:00 13:26 WBC RBC Hgb Hct MCV MCH MCHC RDW Plt Count MPV Immature Gran % (Auto) Neut % (Auto) Lymph % (Auto) Ramsey % (Auto) Eos % (Auto) Baso % (Auto) Lymph # (Auto) Ramsey # (Auto) Eos # (Auto) Baso # (Auto) Abs Immat Gran (auto) Absolute Neuts (auto) Absolute Nucleated RBC Nucleated RBC % (auto) PT INR APTT D-Dimer Sodium 138 Potassium 3.9 Chloride 100 Carbon Dioxide 27 Anion Gap 15 BUN 19 H Creatinine 1.09 Estim Creat Clear Calc 40.2 Estimated GFR 48 Random Glucose 142 H Lactic Acid Calcium 9.1 Ferritin 102 Total Bilirubin 1.5 H AST 31 ALT 28 Alkaline Phosphatase 163 H Lactate Dehydrogenase 310 H Troponin I High Sens 81.3 H C-Reactive Protein 0.40 B-Natriuretic Peptide Total Protein 7.8 Albumin 4.1 Triglycerides Cholesterol LDL Cholesterol, Calc HDL Cholesterol Procalcitonin Urine Color Urine Appearance Urine pH Ur Specific [place] Urine Protein Urine Glucose (UA) Urine Ketones Urine Blood Urine Nitrite Ur Leukocyte Esterase Urine RBC Urine WBC Ur Squamous Epith Cells Urine Bacteria Coronavirus (PCR) COVID-19 ([facility]) COVID-19 Clin Com Influenza Type A (PCR) Influenza Type B (PCR) RSV RNA Qual (PCR) 12/12/20 12/12/20 12/12/20 04:22 04:22 09:54 WBC RBC Hgb Hct MCV MCH MCHC RDW Plt Count MPV Immature Gran % (Auto) Neut % (Auto) Lymph % (Auto) Ramsey % (Auto) Eos % (Auto) Baso % (Auto) Lymph # (Auto) Ramsey # (Auto) Eos # (Auto) Baso # (Auto) Abs Immat Gran (auto) Absolute Neuts (auto) Absolute Nucleated RBC Nucleated RBC % (auto) PT INR APTT D-Dimer Sodium 137 Potassium 3.6 Chloride 98 Carbon Dioxide 27 Anion Gap 16 BUN 25 H Creatinine 1.08 Estim Creat Clear Calc 40.6 Estimated GFR 49 Random Glucose 136 H Lactic Acid Calcium 8.6 Ferritin Total Bilirubin AST ALT Alkaline Phosphatase Lactate Dehydrogenase Troponin I High Sens C-Reactive Protein B-Natriuretic Peptide 2571 H Total Protein Albumin Triglycerides Cholesterol LDL Cholesterol, Calc HDL Cholesterol Procalcitonin Urine Color Urine Appearance Urine pH Ur Specific [place] Urine Protein Urine Glucose (UA) Urine Ketones Urine Blood Urine Nitrite Ur Leukocyte Esterase Urine RBC Urine WBC Ur Squamous Epith Cells Urine Bacteria Coronavirus (PCR) COVID-19 ([facility]) Negative COVID-19 Clin Com See Note Influenza Type A (PCR) Influenza Type B (PCR) RSV RNA Qual (PCR) 12/13/20 05:28 WBC RBC Hgb Hct MCV MCH MCHC RDW Plt Count MPV Immature Gran % (Auto) Neut % (Auto) Lymph % (Auto) Ramsey % (Auto) Eos % (Auto) Baso % (Auto) Lymph # (Auto) Ramsey # (Auto) Eos # (Auto) Baso # (Auto) Abs Immat Gran (auto) Absolute Neuts (auto) Absolute Nucleated RBC Nucleated RBC % (auto) PT INR APTT D-Dimer Sodium Potassium Chloride Carbon Dioxide Anion Gap BUN Creatinine Estim Creat Clear Calc Estimated GFR Random Glucose Lactic Acid Calcium Ferritin Total Bilirubin AST ALT Alkaline Phosphatase Lactate Dehydrogenase Troponin I High Sens C-Reactive Protein B-Natriuretic Peptide Total Protein Albumin Triglycerides 63 Cholesterol 107 LDL Cholesterol, Calc 56 HDL Cholesterol 39 Procalcitonin Urine Color Urine Appearance Urine pH Ur Specific [place] Urine Protein Urine Glucose (UA) Urine Ketones Urine Blood Urine Nitrite Ur Leukocyte Esterase Urine RBC Urine WBC Ur Squamous Epith Cells Urine Bacteria Coronavirus (PCR) COVID-19 ([facility]) COVID-19 Clin Com Influenza Type A (PCR) Influenza Type B (PCR) RSV RNA Qual (PCR) Preliminary micro results at discharge 12/11/20 09:37 Blood Culture - Preliminary Blood - Venous No growth after 48 hours. 12/11/20 09:38 Blood Culture - Preliminary Blood - Venous No growth after 48 hours. Discharge Plan Discharge Patient Disposition: Home, Self-Care Referrals: Po,Edwin Garcia MD [Primary Care Provider] - Discharge Medications: New spironolactone 25 mg Tablet 12.5 mg PO DAILY Qty: 30 RF: 0 furosemide 40 mg Tablet 40 mg PO DAILY Qty: 30 RF: 0 Continued atorvastatin 40 mg tablet 40 mg PO DAILY Qty: 30 RF: 5 metoprolol tartrate 25 mg tablet 25 mg PO BID RF: 0 sennosides [senna] 8.6 mg tablet 8.6 mg PO BEDTIME RF: 0 multivitamin Tablet 1 tab PO DAILY RF: 0 aspirin [Adult Aspirin Regimen] 81 mg tablet,delayed release (DR/EC) 81 mg PO DAILY RF: 0 lisinopril 5 mg tablet 5 mg PO DAILY RF: 0 Eliquis 5 mg tablet 5 mg PO BID RF: 0 omeprazole 20 mg capsule,delayed release(DR/EC) 20 mg PO DAILY RF: 0 Discontinued furosemide 20 mg tablet 20 mg PO QAM RF: 0 Discharge Orders: Discharge Order (Routine); Ordered 12/13/20 Ordered By: Familia Hansen Diet: low salt diet Activity on Discharge: As tolerated Visit Report Forms: Patient Portal Discharge page Care Plan Goals: Low-salt diet Health Concerns: CHF Plan of Treatment: Close outpatient follow-up with Cardiology and primary care physician
--- NOTE | 2020-12-13 15:27 | MHC.CM.PN ---
Patient is being discharged home today no services. Patient and nurse are aware.
[2020-12-13 16:00] VITALS: BP 127/84; PULSE 86; RESP 18; TEMP 37.1; O2SAT 94
--- NOTE | 2020-12-14 08:43 | PM.EVENT ---
Event Note Date of Service: 12/14/20 Event Note: called on behalf of hospitalist service:Micro lab called-patient has 1/2 blood cultures come out to be Gram-positive cocci- We have called patient's son Orlando and updated about the situation as per the family patient is doing fine-no fever or chills or any new symptoms And her son told me that he will get back to me if patient has any new symptoms. Since patient has only 1/2 blood culture positive probably ? Question probably coagulase negative Staph which could be contamination. In above case scenario if family is comfortable to keep the patient home and wait for final blood cultures results.
== END 2020-12-13 18:15 | disposition home or self-care (01) | DRG 291 ==
LOC: HO.ED 08:34 → HO.EDOVER 14:06 → HO.IMC 22:22
PROVIDERS: Nurse Practitioner Primary Care; Admitting Provider Hospitalist; Emergency Provider Emergency Medicine Emergency Medical Services; PCP Internal Medicine; Visit Provider Hospitalist
DX: I13.0 Hypertensive heart and chronic kidney disease with heart failure and stage 1 through stage 4 chronic kidney disease, or unspecified chronic kidney disease (principal); I50.33 Acute on chronic diastolic (congestive) heart failure; J96.01 Acute respiratory failure with hypoxia; N18.9 Chronic kidney disease, unspecified; I48.91 Unspecified atrial fibrillation; E78.5 Hyperlipidemia, unspecified; Z95.1 Presence of aortocoronary bypass graft; I25.118 Atherosclerotic heart disease of native coronary artery with other forms of angina pectoris; Z20.828 Contact with and (suspected) exposure to other viral communicable diseases; Z87.891 Personal history of nicotine dependence; Z79.01 Long term (current) use of anticoagulants; Z79.82 Long term (current) use of aspirin; Z79.899 Other long term (current) drug therapy
CPT/HCPCS: 0241U; 36415; 71045; 71046; 71250; 80048; 80053; 80061; 81001; 82728; 83605; 83615; 83880; 84145; 84484; 85025; 85379; 85610; 85730; 86140; 87040; 87205; 87635; 93005; 93308; 96365; 96366; 96375; 96376; 99285; 99291; J0456; J1940; J2930

== ENCOUNTER 2021-05-06 15:32 | Outpatient (REF) | payer MEDICARE, SELFPAY ==
[2021-05-06 17:25] LABS: Anion Gap 12 (12-20); Blood Urea Nitrogen 26 mg/dL (9-16); Calcium 9.5 mg/dL (8.4-10.2); Carbon Dioxide 28 mmol/L (22-29); Chloride 103 mmol/L (96-108); Estimated Glomerular Filt Rate 42; Glucose Random 98 mg/dL (60-115); Potassium 4.2 mmol/L (3.3-5.1); Sodium 139 mmol/L (135-145)
== END 2021-05-06 15:33 | disposition home or self-care (01) ==
LOC: HO.LAB 15:32
PROVIDERS: PCP Internal Medicine; Visit Provider Internal Medicine Hypertension Specialist
DX: I12.9 Hypertensive chronic kidney disease with stage 1 through stage 4 chronic kidney disease, or unspecified chronic kidney disease (principal); N18.9 Chronic kidney disease, unspecified
CPT/HCPCS: 36415; 80048

== ENCOUNTER 2021-05-15 10:18 | Outpatient (REF) | payer MEDICARE, SELFPAY | END 2021-05-15 10:19 | disposition home or self-care (01) | LOC: HO.MAMMO 10:18 | PROVIDERS: PCP Internal Medicine; Visit Provider Internal Medicine | DX: Z13.89 Encounter for screening for other disorder (principal) ==

== ENCOUNTER 2021-09-27 11:56 | Outpatient (REF) | payer MEDICARE, SELFPAY ==
[2021-09-27 12:11] LABS: MANUAL DIFF FLAG NO
[2021-09-27 12:40] LABS: Basophils Percent Auto 0.5 % (0-2); Eosinophils Absolute Auto 0.3 X10*3/uL (0.0-0.4); Eosinophils Percent Auto 4.3 % (0-4); Hematocrit 37.5 % (37-47); Hemoglobin 12.1 g/dl (12.0-16.0); Imm Gran Abs Auto 0.02 X10*3/uL (0.00-0.03); Imm Gran Pct Auto 0.3 % (0.0-0.4); Immature Retic Fraction 13.5 % (3.0-15.9); Lymphocytes Absolute Auto 1.3 X10*3/uL (1.2-4.9); Lymphocytes Percent Auto 19.8 % (20-40); Mean Corpuscular HGB Conc 32.3 g/dl (31.0-35.0); Mean Corpuscular Hemoglobin 27.6 pg (27.0-33.0); Mean Corpuscular Volume 85.6 fL (80-98); Mean Platelet Volume 9.8 fL (9.4-12.3); Monocytes Absolute Auto 0.5 X10*3/uL (0.1-1.2); Monocytes Percent Auto 7.9 % (2-11); Neutrophils Absolute Auto 4.3 X10*3/uL (2.0-8.3); Neutrophils Percent Auto 67.2 % (45-73); Platelet Count 296 X10*3/uL (160-400); Red Blood Count 4.38 X10*6/uL (4.20-5.50); Red Cell Distribution Width 15.1 % (11.0-16.0); Retic HGB Equivalent 29.5 pg (30.0-35.0); Reticulocyte Percent 1.9 % (0.5-1.8); Reticulocytes Absolute 0.082 X10*6/uL (0.026-0.095); White Blood Count 6.5 X10*3/uL (4.8-10.8)
[2021-09-27 13:10] LABS: B Type Natriuretic Peptide 799 pg/mL (<100)
[2021-09-27 13:15] LABS: Alanine Aminotransferase 14 U/L (0-31); Albumin Level 3.9 g/dL (3.5-5.0); Alkaline Phosphatase 123 U/L (39-117); Anion Gap 13 (12-20); Aspartate Amino Transferase 22 U/L (5-31); Bilirubin Total 0.7 mg/dL (0.0-1.0); Blood Urea Nitrogen 17 mg/dL (9-16); Calcium 9.9 mg/dL (8.4-10.2); Carbon Dioxide 30 mmol/L (22-29); Chloride 103 mmol/L (96-108); Cholesterol 168 mg/dL; Estimated Glomerular Filt Rate 36; Glucose Random 95 mg/dL (60-115); HDL Cholesterol 45 mg/dL; Iron 70 mcg/dL (30-160); LDL Cholesterol Calculated 97 mg/dl; Percent Iron Saturation 16 % (15-50); Potassium 4.5 mmol/L (3.3-5.1); Sodium 141 mmol/L (135-145); Total Iron Binding Capacity 445 mcg/dL (228-428); Total Protein 7.4 g/dL (6.5-8.0); Triglycerides 132 mg/dL; Unsaturated Iron Binding 375 ug/dL
[2021-09-27 13:35] LABS: Free T4 (Free Thyroxine) 1.15 ng/dL (0.71-1.85); Vitamin D 25-OH Total 45.5 ng/mL (>30)
[2021-09-27 13:42] LABS: Folate > 20.0 ng/mL (> or = 4.0); Vitamin B12 461 pg/mL (200-900)
[2021-09-27 13:51] LABS: Ferritin 85 ng/mL (10-250)
== END 2021-09-27 11:57 | disposition home or self-care (01) ==
LOC: HO.LAB 11:56
PROVIDERS: PCP Internal Medicine; Visit Provider Internal Medicine
DX: E78.00 Pure hypercholesterolemia, unspecified (principal); I11.0 Hypertensive heart disease with heart failure; I50.32 Chronic diastolic (congestive) heart failure; D64.9 Anemia, unspecified
CPT/HCPCS: 36415; 80053; 80061; 82306; 82607; 82728; 82746; 83540; 83880; 84439; 84443; 85025; 85045

== ENCOUNTER 2021-12-03 11:44 | Inpatient (IN) | payer MEDICARE, SELFPAY ==
--- NOTE | ~2021-12-03 | XR_ITS ---
EXAMINATION: XR CHEST CLINICAL INFORMATION: Shortness of breath COMPARISON: Previous chest x-ray most recent November 2020 TECHNIQUE: 2 views of the chest were obtained. FINDINGS: The cardiac silhouette is enlarged but stable. There are post-CABG changes and atrial appendage clip. There is a large air-fluid level that projects over the heart suggestive of an esophageal hernia. This does not appear appreciably changed. There are small bilateral pleural effusions. Lungs are clear. There is no pneumothorax. There are degenerative changes of the spine. XR/XR chest 2V IMPRESSION: No acute findings. Enlarged cardiac silhouette, large esophageal hernia and small bilateral pleural effusions previous exam..
[2021-12-03 11:48] VITALS: BP 155/71; PULSE 88; RESP 20; TEMP 37.3; O2SAT 94; BMI 27.8
--- NOTE | 2021-12-03 11:50 | ECG_ITS ---
Test Reason : sob Blood Pressure : / mmHG Vent. Rate : 080 BPM Atrial Rate : 000 BPM P-R Int : 000 ms QRS Dur : 120 ms QT Int : 420 ms P-R-T Axes : 000 -36 104 degrees QTc Int : 484 ms Atrial fibrillation Left axis deviation Left ventricular hypertrophy with QRS widening ( R in aVL , Omi product , Romhilt-Anthony ) Inferior infarct , age undetermined Anteroseptal infarct (cited on or before 12-MAR-2018) Abnormal ECG When compared with ECG of 11-DEC-2020 08:21, Inferior infarct is now Present QT has lengthened Referred By: Generic ED Physician Electronically Signed By:VAL BUSTAMANTE MD
[2021-12-03 12:36] LABS: MANUAL DIFF FLAG NO
[2021-12-03 12:38] LABS: Basophils Percent Auto 0.6 % (0-2); Eosinophils Absolute Auto 0.2 X10*3/uL (0.0-0.4); Eosinophils Percent Auto 4.5 % (0-4); Hemoglobin 12.9 g/dl (12.0-16.0); Imm Gran Abs Auto 0.01 X10*3/uL (0.00-0.03); Imm Gran Pct Auto 0.2 % (0.0-0.4); Lymphocytes Absolute Auto 0.7 X10*3/uL (1.2-4.9); Mean Corpuscular HGB Conc 32.3 g/dl (31.0-35.0); Mean Corpuscular Hemoglobin 27.7 pg (27.0-33.0); Mean Platelet Volume 9.6 fL (9.4-12.3); Monocytes Absolute Auto 0.5 X10*3/uL (0.1-1.2); Monocytes Percent Auto 11.1 % (2-11); Neutrophils Absolute Auto 3.4 x10*3/uL (2.0-8.3); Neutrophils Percent Auto 68.6 % (45-73); Platelet Count 219 X10*3/uL (160-400); Red Blood Count 4.65 X10*6/uL (4.20-5.50); Red Cell Distribution Width 14.6 % (11.0-16.0); White Blood Count 4.9 X10*3/uL (4.8-10.8)
[2021-12-03 12:57] LABS: Alanine Aminotransferase 15 U/L (0-31); Albumin Level 3.9 g/dL (3.5-5.0); Alkaline Phosphatase 132 U/L (39-117); Anion Gap 12 (12-20); Aspartate Amino Transferase 23 U/L (5-31); Bilirubin Total 0.4 mg/dL (0.0-1.0); Blood Urea Nitrogen 12 mg/dL (9-16); Carbon Dioxide 28 mmol/L (22-29); Chloride 103 mmol/L (96-108); Estimated Glomerular Filt Rate 42; Glucose Random 98 mg/dL (60-115); Potassium 3.6 mmol/L (3.3-5.1); Sodium 139 mmol/L (135-145); Total Protein 7.9 g/dL (6.5-8.0)
[2021-12-03 13:00] LABS: B Type Natriuretic Peptide 860 pg/mL (<100)
[2021-12-03 13:01] LABS: Troponin-I High Sensitivity 18.4 ng/L (<3.5-17.0)
[2021-12-03 16:50] VITALS: BP 142/68; PULSE 98; RESP 23; TEMP 37.1
--- NOTE | 2021-12-03 16:57 | ED_ITS ---
HPI - SOB/Dyspnea General Chief Complaint: Dyspnea Stated Complaint: sob,chf Time Seen by Provider: 12/03/21 16:52 Source: patient Mode of arrival: ambulatory Limitations: no limitations History of Present Illness HPI Narrative: This is a 80-year-old female with past medical history that is significant for congestive heart failure with preserved ejection fraction, peripheral vascular disease, hypertension, hyper cholesterolemia who is status post coronary artery bypass June 2020 also history of atrial fibrillation on chronic anticoagulation on Eliquis who presents from home with complaint of shortness of breath. Patient is on Lasix at baseline she denies missing any doses she was admitted here approximately 1 year ago and was given Lasix and nitroglycerin and loss of 2 L of fluid while in the ED and was admitted for a short course patient is vaccinated for COVID. Patient was in the waiting room for over 5 hours COVID is resulted as negative labs are consistent with CHF exacerbation Related Data Home Medications Medication Instructions Recorded Confirmed aspirin 81 mg tablet,delayed 81 mg PO DAILY 09/04/20 12/03/21 release (Adult Aspirin Regimen) multivitamin 1 tab PO DAILY 09/04/20 12/03/21 omeprazole 20 mg capsule,delayed 20 mg PO BID 09/04/20 12/03/21 release sennosides 8.6 mg tablet (senna) 8.6 mg PO BEDTIME tab 09/04/20 12/03/21 metoprolol tartrate 25 mg tablet 25 mg PO BID 12/11/20 12/03/21 atorvastatin 40 mg tablet 40 mg PO BEDTIME 12/03/21 12/03/21 calcium carbonate 500 mg calcium 500 mg PO BID 12/03/21 12/03/21 (1,250 mg) tablet furosemide 20 mg tablet 2 tab PO DAILY 12/03/21 12/03/21 magnesium oxide 400 mg PO DAILY 12/03/21 12/03/21 spironolactone 25 mg tablet 12.5 mg PO BEDTIME 12/03/21 12/03/21 Previous Rx's Medication Instructions Recorded apixaban 5 mg tablet (Eliquis) 5 mg PO BID #180 tab 09/30/21 Allergies Allergy/AdvReac Type Severity Reaction Status Date / Time latex Allergy Mild rash Verified 12/03/21 11:48 simvastatin [Simvastatin] Allergy Mild NAUSEA Verified 12/03/21 11:48 Review of Systems Review of Systems: Review of systems: General: Patient denies any fever chills recent illness or falls Musculoskeletal: Denies back pain or body aches or other injuries HEENT: denies headache, runny nose, ear pain Respiratory: shortness of breath, cough Cardiovascular: no chest pain or palpitations : denies dysuria, frequency Abdomen: no nausea vomiting denies abdominal pain Extremities: no swelling, no pain Skin: no diaphoresis Yes all other systems are reviewed and are negative PMFSH Past Medical History Medical History Atherosclerotic cardiovascular disease Atrial fibrillation Roger's esophagus Bilateral femoral artery stenosis Chronic heart failure with preserved ejection fraction Cognitive impairment Colitis Congestive heart failure Coronary artery disease Coronary artery disease of bypass graft of [place] heart with stable angina pectoris Essential hypertension Hypercholesterolemia Hypertension Peripheral vascular disease Persistent atrial fibrillation Subclavian artery stenosis, left Surgical History History of coronary artery bypass graft (~06/2020) Status post aorto-coronary artery bypass graft Family History Family History Father No problems noted. Mother No problems noted. Social History Social History Household Members: Children Housing: House Do you presently have visiting nurse or other home services: No Alcohol intake: never Patient Tobacco Use Status: Never used Tobacco e-Cigarette/Vaping Use: Never Used Second Hand Smoke Exposure: No Use of substances other than those prescribed or required for medical reasons: No Advance Directives: No Advance Directives Information Provided: Yes service: No Current occupational status: retired Physical Exam Vital Signs: Vital Signs: Last Vital Signs Temp 98.7 F 12/03/21 16:50 Pulse 98 12/03/21 16:50 Resp 23 H 12/03/21 16:50 BP 142/68 H 12/03/21 16:50 Pulse Ox 94 12/03/21 11:48 BMI result Body Mass Index 27.8 General: Well-appearing well-nourished in no signs of distress HEENT: Normocephalic atraumatic Neck: No signs of JVD, no masses no tenderness or lymphadenopathy Cardiovascular: Regular rate and rhythm Respiratory: Rales and rhonchi bilaterally Abdomen: Soft nontender no masses rectal exam performed guiac 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 Extremities: Normal pedal pulses 1 + signs of edema bilaterally Skin: Dry warm no rashes Back: No tenderness full ROM MDM - SOB/Dyspnea MDM Narrative Medical decision making narrative: Concern for CHF exacerbation I will give patient Lasix nitroglycerin it worked last time patient will need admission to the hospital. Page sent at [id number] for admission [id number] Patient acceptd by hospitalist. Differential Diagnosis Differential diagnosis: Likely acute exacerbation of chronic obstructive airways disease, congestive heart failure and pneumonia Lab Data Result diagrams: 12/03/21 12:27 12/03/21 12:27 Labs: Lab Results 12/03/21 12/03/21 12/03/21 Range/Units 12:27 12:27 12:27 WBC 4.9 (4.8-10.8) X10*3/uL RBC 4.65 (4.20-5.50) X10*6/uL Hgb 12.9 (12.0-16.0) g/dl Hct 40.0 (37.0-47.0) % MCV 86.0 (80.0-98.0) fL MCH 27.7 (27.0-33.0) pg MCHC 32.3 (31.0-35.0) g/dl RDW 14.6 (11.0-16.0) % Plt Count 219 (160-400) X10*3/uL MPV 9.6 (9.4-12.3) fL Immature Gran % (Auto) 0.2 (0.0-0.4) % Neut % (Auto) 68.6 (45-73) % Lymph % (Auto) 15.0 L (20-40) % [place] % (Auto) 11.1 H (2-11) % Eos % (Auto) 4.5 H (0-4) % Baso % (Auto) 0.6 (0-2) % Lymph # (Auto) 0.7 L (1.2-4.9) X10*3/uL [place] # (Auto) 0.5 (0.1-1.2) X10*3/uL Eos # (Auto) 0.2 (0.0-0.4) X10*3/uL Baso # (Auto) 0.0 (0.0-0.2) X10*3/uL Abs Immat Gran (auto) 0.01 (0.00-0.03) X10*3/uL Absolute Neuts (auto) 3.4 (2.0-8.3) x10*3/uL Absolute Nucleated RBC 0.000 (0.0-0.012) X10*3/uL Nucleated RBC % (auto) 0.0 (0.0-0.2) /100WBC Sodium 139 (135-145) mmol/L Potassium 3.6 (3.3-5.1) mmol/L Chloride 103 (96-108) mmol/L Carbon Dioxide 28 (22-29) mmol/L Anion Gap 12 (12-20) BUN 12 (9-16) mg/dL Creatinine 1.22 (0.5-1.4) mg/dL Estim Creat Clear Calc 36.0 Estimated GFR 42 Random Glucose 98 (60-115) mg/dL Calcium 9.0 D (8.4-10.2) mg/dL Total Bilirubin 0.4 (0.0-1.0) mg/dL AST 23 (5-31) U/L ALT 15 (0-31) U/L Alkaline Phosphatase 132 H (39-117) U/L Troponin I High Sens (<3.5-17.0) ng/L B-Natriuretic Peptide 860 H (<100) pg/mL Total Protein 7.9 (6.5-8.0) g/dL Albumin 3.9 (3.5-5.0) g/dL COVID-19 ([facility]) (Negative) COVID-19 Clin Com 12/03/21 12/03/21 12/03/21 Range/Units 12:27 17:08 17:08 WBC (4.8-10.8) X10*3/uL RBC (4.20-5.50) X10*6/uL Hgb (12.0-16.0) g/dl Hct (37.0-47.0) % MCV (80.0-98.0) fL MCH (27.0-33.0) pg MCHC (31.0-35.0) g/dl RDW (11.0-16.0) % Plt Count (160-400) X10*3/uL MPV (9.4-12.3) fL Immature Gran % (Auto) (0.0-0.4) % Neut % (Auto) (45-73) % Lymph % (Auto) (20-40) % [place] % (Auto) (2-11) % Eos % (Auto) (0-4) % Baso % (Auto) (0-2) % Lymph # (Auto) (1.2-4.9) X10*3/uL [place] # (Auto) (0.1-1.2) X10*3/uL Eos # (Auto) (0.0-0.4) X10*3/uL Baso # (Auto) (0.0-0.2) X10*3/uL Abs Immat Gran (auto) (0.00-0.03) X10*3/uL Absolute Neuts (auto) (2.0-8.3) x10*3/uL Absolute Nucleated RBC (0.0-0.012) X10*3/uL Nucleated RBC % (auto) (0.0-0.2) /100WBC Sodium (135-145) mmol/L Potassium (3.3-5.1) mmol/L Chloride (96-108) mmol/L Carbon Dioxide (22-29) mmol/L Anion Gap (12-20) BUN (9-16) mg/dL Creatinine (0.5-1.4) mg/dL Estim Creat Clear Calc Estimated GFR Random Glucose (60-115) mg/dL Calcium (8.4-10.2) mg/dL Total Bilirubin (0.0-1.0) mg/dL AST (5-31) U/L ALT (0-31) U/L Alkaline Phosphatase (39-117) U/L Troponin I High Sens 18.4 H 18.2 H (<3.5-17.0) ng/L B-Natriuretic Peptide (<100) pg/mL Total Protein (6.5-8.0) g/dL Albumin (3.5-5.0) g/dL COVID-19 ([facility]) Negative (Negative) COVID-19 Clin Com See Note Discharge Plan Discharge Clinical Impression: CHF exacerbation Patient Disposition: Admitted As Inpatient
[2021-12-03 17:32] LABS: COVID-19 Test Negative (Negative)
[2021-12-03 17:33] LABS: Troponin-I High Sensitivity 18.2 ng/L (<3.5-17.0)
--- NOTE | 2021-12-03 17:38 | PHA.MEDREC ---
Pharmacy Consult ? Medication Reconciliation Pharmacy has completed the medication reconciliation. Patient recently increased lasix to 40mg
[2021-12-03] MEDS: Furosemide 40 MG/4 ML VIAL IVPUSH (17:48)
[2021-12-03 17:52] VITALS: BP 187/81; PULSE 97; RESP 16; O2SAT 96
--- NOTE | 2021-12-03 18:09 | P.HPHOSP_ITS ---
History of Present Illness Date of Service: 12/03/21 <Leigha Deal NP - Last Filed: 12/03/21 18:16> Attending physician on admission: Familia Hansen <Leigha Deal NP - Last Filed: 12/03/21 18:16> Chief Complaint: Shortness of breath <Leigha Deal NP - Last Filed: 12/03/21 18:16> 81-year-old woman presenting with complaints of worsening shortness of breath and cough over the last 3 days. She reports that she has been having trouble sleeping and has actually been sleeping upright in a recliner/chair. She has had episodes of waking up at night with shortness of breath. She denies any chest pain, nausea, vomiting, diarrhea, recent illness, sick contacts, fever, chills. She does have history of congestive heart failure and takes furosemide at home. In the ER troponin was mildly elevated at 18.4 with repeat of 18.2, BNP 860, chest x-ray negative for consolidation, noted small bilateral pleural effusions, COVID-19 negative, no hypoxia noted on room air. She was given a dose of topical nitroglycerin, IV Lasix. She will be admitted for further management of acute on chronic congestive heart failure and acute on chronic COPD exacerbation. 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 Mother No problems noted. <Leigha Deal NP - Last Filed: 12/03/21 18:16> Surgical History: Surgical History History of coronary artery bypass graft (~06/2020) Status post aorto-coronary artery bypass graft <Leigha Deal NP - Last Filed: 12/03/21 18:16> Social History: Social History Household Members: Family Housing: House Do you presently have visiting nurse or other home services: No Alcohol intake: never Patient Tobacco Use Status: Former Tobacco user Tobacco use type: Cigarette e-Cigarette/Vaping Use: Never Used Second Hand Smoke Exposure: No service: No Current occupational status: retired <Leigha Deal NP - Last Filed: 12/03/21 18:16> Meds Allergies/Adverse reactions: Allergies Allergy/AdvReac Type Severity Reaction Status Date / Time latex Allergy Mild rash Verified 12/03/21 11:48 simvastatin [Simvastatin] Allergy Mild NAUSEA Verified 12/03/21 11:48 <Leigha Deal NP - Last Filed: 12/03/21 18:16> Active Medications: Current Medications Pharmacy Consult (Consult Rx Perform Med Rec) 1 each MISCELLANE ONCE PRN PRN Reason: Consult order Pharmacy Consult (Consult Rx Perform Med Rec) 1 each MISCELLANE ONCE PRN PRN Reason: Consult order <Leigha Deal NP - Last Filed: 12/03/21 18:16> Home medications: Home Medications Medication Instructions Recorded Confirmed Last Taken Type aspirin 81 mg tablet,delayed 81 mg PO DAILY 09/04/20 12/03/21 12/03/21 History release (Adult Aspirin Regimen) multivitamin 1 tab PO DAILY 09/04/20 12/03/21 12/03/21 History omeprazole 20 mg capsule,delayed 20 mg PO BID 09/04/20 12/03/21 12/03/21 History release sennosides 8.6 mg tablet (senna) 8.6 mg PO BEDTIME tab 09/04/20 12/03/21 12/02/21 History metoprolol tartrate 25 mg tablet 25 mg PO BID 12/11/20 12/03/21 12/03/21 History atorvastatin 40 mg tablet 40 mg PO BEDTIME 12/03/21 12/03/21 12/02/21 History calcium carbonate 500 mg calcium 500 mg PO BID 12/03/21 12/03/21 12/03/21 History (1,250 mg) tablet furosemide 20 mg tablet 2 tab PO DAILY 12/03/21 12/03/21 12/03/21 History magnesium oxide 400 mg PO DAILY 12/03/21 12/03/21 12/03/21 History spironolactone 25 mg tablet 12.5 mg PO BEDTIME 12/03/21 12/03/21 12/02/21 History <Leigha Deal NP - Last Filed: 12/03/21 18:16> Physical Exam Vital Signs and Narrative: Vital Signs: Last Vital Signs Temp 98.7 F 12/03/21 16:50 Pulse 97 12/03/21 17:52 Resp 16 12/03/21 17:52 BP 187/81 H 12/03/21 17:52 Pulse Ox 96 12/03/21 17:52 BMI result Body Mass Index 27.8 <Leigha Deal NP - Last Filed: 12/03/21 18:16> Appearing in no acute distress head is normocephalic atraumatic eyes pupils are PERRLA sclera is anicteric mouth throat mucous membranes are intact and moist neck is supple no lymphadenopathy, no JVD noted lung sounds expiratory wheezes heart regular rate rhythm, clear S1, S2, +2 lower extremity pitting edema positive bowel sounds, abdomen is soft, nontender neuro patient is alert x3, no focal deficits <Leigha Deal NP - Last Filed: 12/03/21 18:16> Results Labs CBC and Chem 7: : 12/04/21 06:45 12/04/21 06:45 <Leigha Deal NP - Last Filed: 12/03/21 18:16> Labs: Laboratory Results - last 24 hr 12/03/21 12/03/21 12/03/21 12:27 12:27 12:27 MCV 86.0 MCH 27.7 MCHC 32.3 RDW 14.6 Plt Count 219 MPV 9.6 Immature Gran % (Auto) 0.2 Neut % (Auto) 68.6 Lymph % (Auto) 15.0 L [place] % (Auto) 11.1 H Eos % (Auto) 4.5 H Baso % (Auto) 0.6 Lymph # (Auto) 0.7 L [place] # (Auto) 0.5 Eos # (Auto) 0.2 Baso # (Auto) 0.0 Abs Immat Gran (auto) 0.01 Absolute Neuts (auto) 3.4 Absolute Nucleated RBC 0.000 Nucleated RBC % (auto) 0.0 Anion Gap 12 Estim Creat Clear Calc 36.0 Estimated GFR 42 Random Glucose 98 Calcium 9.0 D Total Bilirubin 0.4 AST 23 ALT 15 Alkaline Phosphatase 132 H Troponin I High Sens B-Natriuretic Peptide 860 H Total Protein 7.9 Albumin 3.9 COVID-19 ([facility]) COVID-19 Clin Com 12/03/21 12/03/21 12/03/21 12:27 17:08 17:08 MCV MCH MCHC RDW Plt Count MPV Immature Gran % (Auto) Neut % (Auto) Lymph % (Auto) [place] % (Auto) Eos % (Auto) Baso % (Auto) Lymph # (Auto) [place] # (Auto) Eos # (Auto) Baso # (Auto) Abs Immat Gran (auto) Absolute Neuts (auto) Absolute Nucleated RBC Nucleated RBC % (auto) Anion Gap Estim Creat Clear Calc Estimated GFR Random Glucose Calcium Total Bilirubin AST ALT Alkaline Phosphatase Troponin I High Sens 18.4 H 18.2 H B-Natriuretic Peptide Total Protein Albumin COVID-19 ([facility]) Negative COVID-19 Clin Com See Note <Leigha Deal NP - Last Filed: 12/03/21 18:16> Imaging Radiologist's Impressions: Impressions Chest X-Ray 12/03/21 12:53 IMPRESSION: No acute findings. Enlarged cardiac silhouette, large esophageal hernia and small bilateral pleural effusions previous exam.. <Leigha Deal NP - Last Filed: 12/03/21 18:16> Assessment and Plan (1) Chronic heart failure with preserved ejection fraction: Status: Acute <Leigha Deal NP - Last Filed: 12/03/21 18:16> (2) Persistent atrial fibrillation: Status: Acute <Leigha Deal NP - Last Filed: 12/03/21 18:16> (3) COPD exacerbation: Status: Acute <Leigha Deal NP - Last Filed: 12/03/21 18:16> 81-year-old woman admitted with acute on chronic COPD exacerbation and acute on chronic congestive heart failure exacerbation Acute on chronic COPD exacerbation without hypoxia Scheduled DuoNebs Steroids Supplemental oxygen as needed Acute on chronic heart failure with preserved ejection fraction exacerbation IV Lasix Cardiology consultation Last echocardiogram in November of 2020 showing EF of 55-60% with mild pulmonary hypertension, will repeat echocardiogram as it has been almost a year Strict intake and output, daily weights History of atrial fibrillation Continue apixaban, metoprolol Coronary artery disease Continue aspirin, statin DVT prophylaxis with apixaban Attending Dr. Hansen Full code <Leigha Deal NP - Last Filed: 12/03/21 18:16> Quality Stroke Does the patient have a stroke diagnosis?: No <Leigha Deal NP - Last Filed: 12/03/21 18:16> VTE Prior VTE?: No <Leigha Deal NP - Last Filed: 12/03/21 18:16> VTE Risk Level:: Medical - moderate - high <Leigha Deal NP - Last Filed: 12/03/21 18:16> VTE Device Contraindication: Treatment Not Tolerated <Leigha Deal NP - Last Filed: 12/03/21 18:16> VTE Drug Contraindication: N/A - Med Ordered <Leigha Deal NP - Last Filed: 12/03/21 18:16>
[2021-12-03] MEDS: methylPREDNISolone Sod Succ 40 MG/ML VIAL IVPUSH (18:31)
[2021-12-03 18:51] VITALS: BP 187/87; PULSE 99
[2021-12-03] MEDS: Nitroglycerin 2 % Oint 1 GM Packet 0.5 INCH TRANSDERMA (18:52)
[2021-12-03] MEDS: Albuterol/Iprat 2.5/0.5MG 3 ML AMPUL.NEB INHALE (20:34)
--- NOTE | 2021-12-03 20:34 | PC.NURSE ---
christie asencio phone number
[2021-12-03 20:35] VITALS: PULSE 99; RESP 16; O2SAT 94
[2021-12-03] MEDS: Sennosides 8.6 MG TABLET PO (21:59)
[2021-12-03] MEDS: Metoprolol Tartrate 25 MG TABLET PO (21:59)
[2021-12-03 22:02] VITALS: BP 171/73; PULSE 99; RESP 17; O2SAT 87
[2021-12-03] MEDS: Apixaban 5 MG TABLET PO (22:02)
[2021-12-03] MEDS: Atorvastatin Calcium 40 MG TABLET PO (22:02)
[2021-12-04] VITALS (7 sets, daily range): BP systolic 116–173; BP diastolic 59–91; PULSE 78–98; RESP 15–18; TEMP 36–36.7; O2SAT 88–94
[2021-12-04 07:24] LABS: Basophils Percent Auto 0.3 % (0-2); Hemoglobin 12.6 g/dl (12.0-16.0); Imm Gran Abs Auto 0.01 X10*3/uL (0.00-0.03); Imm Gran Pct Auto 0.3 % (0.0-0.4); Lymphocytes Absolute Auto 0.6 X10*3/uL (1.2-4.9); Lymphocytes Percent Auto 15.8 % (20-40); MANUAL DIFF FLAG SCAN; Mean Corpuscular HGB Conc 32.3 g/dl (31.0-35.0); Mean Corpuscular Hemoglobin 27.6 pg (27.0-33.0); Mean Corpuscular Volume 85.3 fL (80.0-98.0); Mean Platelet Volume 10.2 fL (9.4-12.3); Monocytes Absolute Auto 0.2 X10*3/uL (0.1-1.2); Monocytes Percent Auto 4.9 % (2-11); Neutrophils Absolute Auto 2.9 x10*3/uL (2.0-8.3); Neutrophils Percent Auto 78.7 % (45-73); Platelet Count 206 X10*3/uL (160-400); Red Blood Count 4.57 X10*6/uL (4.20-5.50); Red Cell Distribution Width 14.6 % (11.0-16.0); SCAN SMEAR FLAG 1; White Blood Count 3.7 X10*3/uL (4.8-10.8)
[2021-12-04 07:38] LABS: Anion Gap 11 (12-20); Blood Urea Nitrogen 23 mg/dL (9-16); Calcium 9.4 mg/dL (8.4-10.2); Carbon Dioxide 29 mmol/L (22-29); Chloride 102 mmol/L (96-108); Creatinine Clr Calc Pharmacy 35.2; Estimated Glomerular Filt Rate 41; Glucose Random 144 mg/dL (60-115); Potassium 3.7 mmol/L (3.3-5.1); Sodium 138 mmol/L (135-145)
[2021-12-04] MEDS: Apixaban 5 MG TABLET PO ×2 (07:39→20:47)
[2021-12-04] MEDS: Furosemide 40 MG/4 ML VIAL IVPUSH ×2 (07:39→18:49)
[2021-12-04] MEDS: Metoprolol Tartrate 25 MG TABLET PO ×2 (07:39→20:46)
[2021-12-04] MEDS: Omeprazole 20 MG CAPSULE.DR PO ×2 (07:39→15:53)
[2021-12-04] MEDS: Multivitamin TABLET 1 TAB PO (07:39)
[2021-12-04] MEDS: Magnesium Oxide 400 MG TABLET PO (07:39)
[2021-12-04] MEDS: Aspirin Enteric Coated 81 MG TABLET.DR PO (07:39)
[2021-12-04] MEDS: methylPREDNISolone Sod Succ 40 MG/ML VIAL IVPUSH ×2 (07:39→20:46)
[2021-12-04] MEDS: 0.9 % Sodium Chloride Flush 3 ML SYRINGE IVFLUSH ×3 (07:40→20:47)
[2021-12-04 08:15] LABS: SLIDE REVIEW VERIFIED
--- NOTE | 2021-12-04 08:30 | CA_ITS ---
Transthoracic Echocardiogram Patient (Last, First, Middle): Bethany Brooke G Gender: Female Date of : 1940 Age: 81 Procedure Date: 12/04/2021 Procedure Type: Transthoracic Echocardiogram [place] [facility] [place] Height: 162.56 cm Weight: 73.48 kg BSA: 1.79 m2 Heart Rate: bpm BP: 127 / 63 mmHg Video Production Coordinator: KIRSTIE Perera MD: Leigha Deal NP Print Journalist: Vaughn Guevara MD Symptoms: chf, acute in chronic Study Quality: Fair ECG Rhythm: Atrial Fibrillation Conclusions: - 1. Normal LV systolic function 2. Severe left atrial enlargement 3. Severe mitral calcification with at least moderate mitral regurgitation 4. Moderately elevated right ventricular systolic pressure 5. No gross pericardial effusion Findings Left Ventricle Normal left ventricular size, thickness, and systolic function. The visually estimated ejection fraction is between 60-65%. Diastolic function is indeterminate on the basis of available data. Elevated filling pressures. Right Ventricle Normal right ventricular cavity size. There is low normal right ventricular systolic function. Atria The left atrium is severely dilated. There is no evidence of interatrial shunt. The right atrium is moderately dilated. Aortic Valve There is mild calcification of the aortic valve. There is no aortic valve stenosis. There is no aortic valve regurgitation. Mitral Valve There is moderate anterior and severe posterior mitral leaflet thickening. There is severe mitral annular calcification. There is moderate mitral valve regurgitation. Pulmonic Valve The pulmonic valve was not well visualized. There is trace to mild pulmonic valve regurgitation. Tricuspid Valve Likely normal tricuspid valve structure and function. There is mild to moderate tricuspid valve regurgitation. Moderate pulmonary hypertension is present. Great Vessels All visible segments of the aorta are normal in size. The pulmonary artery was not well visualized. Venous The inferior vena cava is normal in size and collapses greater than 50% with inspiration. Pericardium/Pleural There is no evidence of pericardial effusion. Prior Study Comparison Changes noted compared to prior study dated: 12/13/2020. RV systolic pressure is moderately elevated Measurements 2D Linear Measurements IVSd: 1.06 0.6-0.9/0.6-1.0 cm LVIDd: 3.72 3.9-5.3/4.2-5.9 cm LVIDd Index: 2.08 2.4-3.2/2.2-3.1 cm/m2 LVIDs: 2.74 2.0-3.6 cm LVPWd: 1.09 0.7-1.1 cm Ao Root: 2.90 2.1-3.5 cm LA Diam: 4.10 2.7-3.8/3.0-4.0 cm LAIDs Index: 2.29 1.5-2.3 cm/m2 LV Mass: 156.81 67-162/88-224 g LV Mass Index: 87.61 43-95/49-115 g/m2 LVOT Diam: 2.00 3.0+(-)1.3 cm 2D Systolic Function EF 4C: 68.20 >55% EF 2C: 56.50 >55% EF BiP: 63.20 >55% Aortic Valve AoV Pk Shon: 1.39 AoV Mn Shon: 1.00 AoV VTI: 0.29 AoV Pk Grad: 8.00 Aov Mn Grad: 4.00 BASSAM Cont.VTI: 1.91 LVOT LVOT Pk Shon: 0.72 LVOT Mn Shon: 0.49 LVOT VTI: 0.18 LVOT Pk Grad: 2.00 LVOT Mn Grad: 1.00 LVOT Diam: 2.00 LVOT Area: 3.14 Right Ventricle TAPSE (mm): 1.05 TVS' Shon: 6.64 Tricuspid Valve TR Pk Shon: 3.35 TR Pk Grad: 45.00 RA Press: 3.00 RVSP: 48.00 Great Vessels Aorta Ao Root-2D: 2.90 2.0-3.7 cm Ao Asc: 3.20 2.1-3.4 cm Updated in Other Vendor System with Status of Final Vaughn Guevara MD electronically signed on 12/04/2021 9:32:32 AM with status of Final
--- NOTE | 2021-12-04 09:48 | PC.NURSE ---
attempt to give report rn to call back
--- NOTE | 2021-12-04 10:31 | MHC.CM.PN ---
CM MET WITH PT IN ED 17 PT REPORTS SHE LIVES AT HOME AND HER SON LIVES WITH HER PT REPORTS SHE IS INDEPENDENT WITH SELF CARE AND USES A CANE TO AMBULATE PT CONFIRMS THE HCP ON FILE IS ACCURATE (KAI ALLISON [phone]) PT REPORTS SHE IS ACTIVE WITH [facility] FOR PRIMARY CARE HOWEVER RECENTLY MISSED AN APPT SHE REQUESTS A NEW APPT BE SCHEDULED AND PREFERS LATE MORNING. TASK SENT TO SUPERVISORY AIDE IMM DELIVERED, ORIGINAL GIVEN TO PT, COPY SENT TO [facility] CURRENT DC PLAN IS HOME WITH NO SERVICES FAMILY TO TRANSPORT
--- NOTE | 2021-12-04 10:52 | P.CONCA_ITS ---
History of Present Illness History of Present Illness Date of Service: 12/04/21 Requesting physician: Leigha Deal Chief complaint: CHF, Copd Narrative: I was requested to see Bethany in cardiology consultation today for progressive shortness of breath and noted to be in CHF exacerbation as well as COPD. Last seen by Dr. Hargrove in the office September 2020 after coronary artery bypass grafting for congestive heart failure, for severe left main disease undergoing 2 vessel coronary artery bypass grafting. She has chronic atrial fibrillation, currently on oral anticoagulation. She remains on low-dose aspirin therapy. She has prior history of heart failure was admitted in November last year with acute respiratory failure with hypoxia related to heart failure. Since then has not been seen in cardiology clinic. She says she started getting gradually increasing progressive shortness of breath had the weight gain of about 5 lb, no leg edema, abdominal distension. She said this might have been due to dietary discretion around the time of follow days as she was eating out. She denies any chest pain. No palpitations, lightheadedness, syncope. No bleeding issues. Came to the hospital with respiratory failure and was noted to be in heart failure as well as noted to be with COPD exacerbation. Since yesterday she has diuresed and says she is feeling better, however continues to have cough. Still short of breath but much improved. Review of Systems Constitutional: Constitutional: Reports no additional constitutional complaints Eyes: Eyes: Reports no additional eye complaints Cardiovascular: Cardiovascular: Reports dyspnea on exertion and Reports orthopnea Respiratory: Respiratory: Reports cough and Reports dyspnea on exertion Gastrointestinal: Gastrointestinal: Reports no additional gastrointestinal complaints Genitourinary: Genitourinary: Reports no additional female genitourinary complaints Musculoskeletal: Musculoskeletal: Reports no additional musculoskeletal complaints Integumentary/Breasts: Skin/Breast: Reports system reviewed and no additional complaints, except as docu Neurologic: Reports system reviewed and no additional complaints, except as documented Psychiatric: Psychiatric: Reports no additional psychiatric complaints Endocrine: Endocrine: Reports no additional endocrine complaints Hematologic/Lymphatic: Hematologic/Lymphatic: Reports no additional hematologic/lymphatic complaints Allergic/Immunologic: Allergic/Immunologic: Reports no additional allergic/immunologic complaints [facility] Past Medical History Medical History 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 Chronic heart failure with preserved ejection fraction Cognitive impairment Colitis Coronary artery disease of bypass graft of [place] heart with stable angina pectoris Essential hypertension Hypercholesterolemia Peripheral vascular disease Persistent atrial fibrillation Subclavian artery stenosis, left Family History Family History Father No problems noted. Mother No problems noted. Surgical History Surgical History History of coronary artery bypass graft (~06/2020) Status post aorto-coronary artery bypass graft Social History Social History Household Members: Family Housing: House Do you presently have visiting nurse or other home services: No Alcohol intake: never Patient Tobacco Use Status: Former Tobacco user Tobacco use type: Cigarette e-Cigarette/Vaping Use: Never Used Second Hand Smoke Exposure: No service: No Current occupational status: retired [employer] Allergies Allergy/AdvReac Type Severity Reaction Status Date / Time latex Allergy Mild rash Verified 12/03/21 11:48 simvastatin [Simvastatin] Allergy Mild NAUSEA Verified 12/03/21 11:48 Active Medications: Current Medications Acetaminophen (Acetaminophen 325 Mg Tablet) 650 mg PO Q6H PRN PRN Reason: Pain, Mild (Pain Scale 1-3) Albuterol/Ipratropium (Albuterol/Iprat 2.5/0.5mg 3 Ml Ampul.Neb) 3 ml INHALE RQ4H WHILE AWAKE [facility] Last Admin: 12/04/21 08:17 Dose: Not Given Documented by: Apixaban (Apixaban 5 Mg Tablet) 5 mg PO BID [facility] Last Admin: 12/04/21 07:39 Dose: 5 mg Documented by: Aspirin (Aspirin Enteric Coated 81 Mg Tablet.) 81 mg PO DAILY [facility] Last Admin: 12/04/21 07:39 Dose: 81 mg Documented by: Atorvastatin Calcium (Atorvastatin Calcium 40 Mg Tablet) 40 mg PO BEDTIME [facility] Last Admin: 12/03/21 22:02 Dose: 40 mg Documented by: Calcium Carbonate (Calcium Carbonate 500 Mg Tablet) 500 mg PO BID [facility] Last Admin: 12/04/21 07:39 Dose: 500 mg Documented by: Furosemide (Furosemide 40 Mg/4 Ml Vial) 40 mg IVPUSH BID@0900,1800 [facility]; Protocol Last Admin: 12/04/21 07:39 Dose: 40 mg Documented by: Magnesium Oxide (Magnesium Oxide 400 Mg Tablet) 400 mg PO DAILY [facility] Last Admin: 12/04/21 07:39 Dose: 400 mg Documented by: Methylprednisolone Sodium Succinate (Methylprednisolone Sod Succ 40 Mg/Ml Vial) 40 mg IVPUSH Q12H [facility] Last Admin: 12/04/21 07:39 Dose: 40 mg Documented by: Metoprolol Tartrate (Metoprolol Tartrate 25 Mg Tablet) 25 mg PO BID [facility]; Protocol Last Admin: 12/04/21 07:39 Dose: 25 mg Documented by: Multivitamins/Vitamin C (Multivitamin Tablet) 1 tab PO DAILY [facility] Last Admin: 12/04/21 07:39 Dose: 1 tab Documented by: Omeprazole (Omeprazole 20 Mg Capsule.Dr) 20 mg PO BID@0630,1630 [facility] Last Admin: 12/04/21 07:39 Dose: 20 mg Documented by: Pharmacy Consult (Consult Rx Perform Med Rec) 1 each MISCELLANE ONCE PRN PRN Reason: Consult order Pharmacy Consult (Consult Rx Perform Med Rec) 1 each MISCELLANE ONCE PRN PRN Reason: Consult order Senna (Sennosides 8.6 Mg Tablet) 8.6 mg PO BEDTIME [facility] Last Admin: 12/03/21 21:59 Dose: 8.6 mg Documented by: Sodium Chloride (0.9 % Sodium Chloride Flush 3 Ml Sy[facility]) [facility] Last Admin: 12/04/21 07:40 Dose: 3 ml Documented by: Home Medications Medication Instructions Recorded Confirmed Last Taken Type aspirin 81 mg tablet,delayed 81 mg PO DAILY 09/04/20 12/03/21 12/03/21 History release (Adult Aspirin Regimen) multivitamin 1 tab PO DAILY 09/04/20 12/03/21 12/03/21 History omeprazole 20 mg capsule,delayed 20 mg PO BID 09/04/20 12/03/21 12/03/21 History release sennosides 8.6 mg tablet (senna) 8.6 mg PO BEDTIME tab 09/04/20 12/03/21 12/02/21 History metoprolol tartrate 25 mg tablet 25 mg PO BID 12/11/20 12/03/21 12/03/21 History atorvastatin 40 mg tablet 40 mg PO BEDTIME 12/03/21 12/03/21 12/02/21 History calcium carbonate 500 mg calcium 500 mg PO BID 12/03/21 12/03/21 12/03/21 History (1,250 mg) tablet furosemide 20 mg tablet 2 tab PO DAILY 12/03/21 12/03/21 12/03/21 History magnesium oxide 400 mg PO DAILY 12/03/21 12/03/21 12/03/21 History spironolactone 25 mg tablet 12.5 mg PO BEDTIME 12/03/21 12/03/21 12/02/21 History Physical Exam Vital Signs: Vital Signs: Last Vital Signs Temp 97.5 F 12/04/21 10:36 Pulse 79 12/04/21 10:36 Resp 18 12/04/21 10:36 BP 173/77 H 12/04/21 10:36 Pulse Ox 94 12/04/21 10:36 BMI result Body Mass Index 27.8 Const: General: cooperative and in distress mild and respiratory Nutritional Appearance: average body habitus Orientation/consciousness: p atient oriented x3 Limitations: no limitations HENMT: Head: Yes normocephalic and Yes atraumatic Neck: Neck: Yes trachea midline, Yes supple and Yes no JVD Chest: Chest palpation & inspection: normal inspection of the chest and other (Well-healed sternotomy scar) Resp: Effort & Inspection: normal respiratory effort Auscultation: no rales, no wheezes and diminished lung sounds Cardio: Jugular venous distension: no JVD Palpation: normal PMI Rhythm: abnormal rhythm irregularly irregular Heart sounds: S1 normal heart sound present, S2 normal heart sound present, no click, no gallops and no murmurs GI: Auscultation: normal bowel sounds Neuro: General: patient oriented x3 Objective Labs and Meds Result diagrams: 12/04/21 06:45 12/04/21 06:45 Lab results: Laboratory Results - last 24 hr 12/03/21 12/03/21 12/03/21 12:27 12:27 12:27 WBC 4.9 RBC 4.65 Hgb 12.9 Hct 40.0 MCV 86.0 MCH 27.7 MCHC 32.3 RDW 14.6 Plt Count 219 MPV 9.6 Immature Gran % (Auto) 0.2 Neut % (Auto) 68.6 Lymph % (Auto) 15.0 L [place] % (Auto) 11.1 H Eos % (Auto) 4.5 H Baso % (Auto) 0.6 Lymph # (Auto) 0.7 L [place] # (Auto) 0.5 Eos # (Auto) 0.2 Baso # (Auto) 0.0 Abs Immat Gran (auto) 0.01 Absolute Neuts (auto) 3.4 Absolute Nucleated RBC 0.000 Nucleated RBC % (auto) 0.0 Smear Tech's Comments Sodium 139 Potassium 3.6 Chloride 103 Carbon Dioxide 28 Anion Gap 12 BUN 12 Creatinine 1.22 Estim Creat Clear Calc 36.0 Estimated GFR 42 Random Glucose 98 Calcium 9.0 D Total Bilirubin 0.4 AST 23 ALT 15 Alkaline Phosphatase 132 H Troponin I High Sens B-Natriuretic Peptide 860 H Total Protein 7.9 Albumin 3.9 COVID-19 ([facility]) COVID-19 Clin Com 12/03/21 12/03/21 12/03/21 12:27 17:08 17:08 WBC RBC Hgb Hct MCV MCH MCHC RDW Plt Count MPV Immature Gran % (Auto) Neut % (Auto) Lymph % (Auto) [place] % (Auto) Eos % (Auto) Baso % (Auto) Lymph # (Auto) [place] # (Auto) Eos # (Auto) Baso # (Auto) Abs Immat Gran (auto) Absolute Neuts (auto) Absolute Nucleated RBC Nucleated RBC % (auto) Smear Tech's Comments Sodium Potassium Chloride Carbon Dioxide Anion Gap BUN Creatinine Estim Creat Clear Calc Estimated GFR Random Glucose Calcium Total Bilirubin AST ALT Alkaline Phosphatase Troponin I High Sens 18.4 H 18.2 H B-Natriuretic Peptide Total Protein Albumin COVID-19 ([facility]) Negative COVID-19 Clin Com See Note 12/04/21 12/04/21 06:45 06:45 WBC 3.7 L RBC 4.57 Hgb 12.6 Hct 39.0 MCV 85.3 MCH 27.6 MCHC 32.3 RDW 14.6 Plt Count 206 MPV 10.2 Immature Gran % (Auto) 0.3 Neut % (Auto) 78.7 H Lymph % (Auto) 15.8 L [place] % (Auto) 4.9 Eos % (Auto) 0.0 Baso % (Auto) 0.3 Lymph # (Auto) 0.6 L [place] # (Auto) 0.2 Eos # (Auto) 0.0 Baso # (Auto) 0.0 Abs Immat Gran (auto) 0.01 Absolute Neuts (auto) 2.9 Absolute Nucleated RBC 0.000 Nucleated RBC % (auto) 0.0 Smear Tech's Comments VERIFIED Sodium 138 Potassium 3.7 Chloride 102 Carbon Dioxide 29 Anion Gap 11 L BUN 23 H D Creatinine 1.25 Estim Creat Clear Calc 35.2 Estimated GFR 41 Random Glucose 144 H Calcium 9.4 Total Bilirubin AST ALT Alkaline Phosphatase Troponin I High Sens B-Natriuretic Peptide Total Protein Albumin COVID-19 ([facility]) COVID-19 Clin Com Conclusions: -? 1.? Normal LV systolic function ? 2. Severe left atrial enlargement? 3. Severe mitral calcification with at least moderate mitral ? ? regurgitation? 4. Moderately elevated right ventricular systolic pressure ? ? ? 5. No gross pericardial effusion ? Imaging Radiologist's impression: Impressions Chest X-Ray 12/03/21 12:53 IMPRESSION: No acute findings. Enlarged cardiac silhouette, large esophageal hernia and small bilateral pleural effusions previous exam.. Assessment and Plan (1) CHF exacerbation: Status: Acute Patient presents with acute congestive heart failure in addition to COPD exacerbation. Has diuresed well and feeling better today. Continue IV diuresis. Cause for her congestive heart failure appears to be dietary indiscretion with salt. Continue monitor strict I's and nose. Trend BNP and BM P and replace electrolytes as needed. Add Aldactone 12.5 mg to her regimen. Continue rate control. No evidence of clear ischemia at this point time. Continue COPD management as per the primary team. (2) Persistent atrial fibrillation: Status: Acute Atrial fibrillation which is rate controlled. Continue rate control strategy. Continue full oral anticoagulation, currently on Eliquis 5 mg b.i.d.. No need for additional aspirin therapy as a coronary artery bypass grafting is greater than 1 year. Continue Eliquis therapy. Given her significant left atrial enlargement unlikely to pursue rhythm control approach. (3) Coronary artery disease of bypass graft of [place] heart with stable angina pectoris: Status: Acute CAD stable without any symptoms of angina. Continue medical management. Continue high-intensity statin therapy. Continue blood pressure which is well optimized. Will follow with you Procedures Date of Service Date of Service: 12/04/21
[2021-12-04] MEDS: Albuterol/Iprat 2.5/0.5MG 3 ML AMPUL.NEB INHALE ×2 (11:40→17:08)
--- NOTE | 2021-12-04 15:48 | P.PNIM_ITS ---
Subjective Subjective Date of Service: 12/04/21 Interval History: Feeling better this morning less shortness of breath, denies chest pain, denied PND, no orthopnea, denies fever chills, no sick contacts, has chronic cough with clear phlegm. Not sleeping well due to anxiety Review of Systems Review of Systems: Yes all other systems are reviewed and are negative Physical Exam Vital Signs: Vital Signs: Last Vital Signs Temp 97.5 F 12/04/21 10:36 Pulse 79 12/04/21 10:36 Resp 18 12/04/21 10:36 BP 173/77 H 12/04/21 10:36 Pulse Ox 94 12/04/21 10:36 BMI result Body Mass Index 27.8 General in no acute distress. Neck supple no JVD. CVS regular rate rhythm, Respiratory lungs clear to auscultation, no respiratory distress, no wheeze, no rhonchi, no rales Gastrointestinal abdomen soft, nontender, bowel sounds audible Extremities no edema. Neuro nonfocal ,speech clear. Skin no rash Psych appropriate insight Objective Data Active Medications Acetaminophen (Acetaminophen 325 Mg Tablet) 650 mg PO Q6H PRN PRN Reason: Pain, Mild (Pain Scale 1-3) Albuterol/Ipratropium (Albuterol/Iprat 2.5/0.5mg 3 Ml Ampul.Neb) 3 ml INHALE RQ4H WHILE AWAKE [facility] Last Admin: 12/04/21 11:40 Dose: 3 ml Documented by: AGUSTÍN Apixaban (Apixaban 5 Mg Tablet) 5 mg PO BID [facility] Last Admin: 12/04/21 07:39 Dose: 5 mg Documented by: BOBBY Aspirin (Aspirin Enteric Coated 81 Mg Tablet.Dr) 81 mg PO DAILY [facility] Last Admin: 12/04/21 07:39 Dose: 81 mg Documented by: BOBBY Atorvastatin Calcium (Atorvastatin Calcium 40 Mg Tablet) 40 mg PO BEDTIME [facility] Last Admin: 12/03/21 22:02 Dose: 40 mg Documented by: WILLIAMBS Calcium Carbonate (Calcium Carbonate 500 Mg Tablet) 500 mg PO BID [facility] Last Admin: 12/04/21 07:39 Dose: 500 mg Documented by: BOBBY Furosemide (Furosemide 40 Mg/4 Ml Vial) 40 mg IVPUSH BID@0900,1800 [facility]; P rotocol Last Admin: 12/04/21 07:39 Dose: 40 mg Documented by: BOBBY Magnesium Oxide (Magnesium Oxide 400 Mg Tablet) 400 mg PO DAILY [facility] Last Admin: 12/04/21 07:39 Dose: 400 mg Documented by: BOBBY Methylprednisolone Sodium Succinate (Methylprednisolone Sod Succ 40 Mg/Ml Vial) 40 mg IVPUSH Q12H [facility] Last Admin: 12/04/21 07:39 Dose: 40 mg Documented by: BOBBY Metoprolol Tartrate (Metoprolol Tartrate 25 Mg Tablet) 25 mg PO BID [facility]; Protocol Last Admin: 12/04/21 07:39 Dose: 25 mg Documented by: BOBBY Multivitamins/Vitamin C (Multivitamin Tablet) 1 tab PO DAILY [facility] Last Admin: 12/04/21 07:39 Dose: 1 tab Documented by: BOBBY Omeprazole (Omeprazole 20 Mg Capsule.Dr) 20 mg PO BID@0630,1630 [facility] Last Admin: 12/04/21 07:39 Dose: 20 mg Documented by: BOBBY Pharmacy Consult (Consult Rx Perform Med Rec) 1 each MISCELLANE ONCE PRN PRN Reason: Consult order Pharmacy Consult (Consult Rx Perform Med Rec) 1 each MISCELLANE ONCE PRN PRN Reason: Consult order Senna (Sennosides 8.6 Mg Tablet) 8.6 mg PO BEDTIME [facility] Last Admin: 12/03/21 21:59 Dose: 8.6 mg Documented by: FREDDY Sodium Chloride (0.9 % Sodium Chloride Flush 3 Ml Syringe) 3 ml IVFLUSH QSHIFT [facility] Last Admin: 12/04/21 07:40 Dose: 3 ml Documented by: BOBBY Labs CBC & Chem 7: 12/04/21 06:45 12/04/21 06:45 Labs: Laboratory Results - last 24 hr 12/03/21 12/03/21 12/04/21 17:08 17:08 06:45 MCV 85.3 MCH 27.6 MCHC 32.3 RDW 14.6 Plt Count 206 MPV 10.2 Immature Gran % (Auto) 0.3 Neut % (Auto) 78.7 H Lymph % (Auto) 15.8 L [place] % (Auto) 4.9 Eos % (Auto) 0.0 Baso % (Auto) 0.3 Lymph # (Auto) 0.6 L [place] # (Auto) 0.2 Eos # (Auto) 0.0 Baso # (Auto) 0.0 Abs Immat Gran (auto) 0.01 Absolute Neuts (auto) 2.9 Absolute Nucleated RBC 0.000 Nucleated RBC % (auto) 0.0 Smear Tech's Comments VERIFIED Anion Gap Estim Creat Clear Calc Estimated GFR Random Glucose Calcium Troponin I High Sens 18.2 H COVID-19 ([facility]) Negative COVID-19 Clin Com See Note 12/04/21 06:45 MCV MCH MCHC RDW Plt Count MPV Immature Gran % (Auto) Neut % (Auto) Lymph % (Auto) [place] % (Auto) Eos % (Auto) Baso % (Auto) Lymph # (Auto) [place] # (Auto) Eos # (Auto) Baso # (Auto) Abs Immat Gran (auto) Absolute Neuts (auto) Absolute Nucleated RBC Nucleated RBC % (auto) Smear Tech's Comments Anion Gap 11 L Estim Creat Clear Calc 35.2 Estimated GFR 41 Random Glucose 144 H Calcium 9.4 Troponin I High Sens COVID-19 ([facility]) COVID-19 Clin Com Assessment and Plan (1) COPD exacerbation: Status: Acute (2) CHF exacerbation: Status: Acute (3) Persistent atrial fibrillation: Status: Acute (4) Acute respiratory failure with hypoxia: Status: Acute Assessment and Plan: 81-year-old woman with past medical history of COPD, chronic congestive heart failure with preserved EF, history of coronary artery disease status post CABG presented to [facility] with shortness of breath, productive cough of clear phlegm of last several weeks , without associated chest pain, denies orthopnea no PND, denies fever chills, denies weight loss, usually sleeps with 1 flat pillow, but since shortness of breath was progressing worse with ambulation therefore decided to come to emergency room and diagnosed to have acute on chronic COPD exacerbation and acute on chronic congestive heart failure exacerbation with preserved EF Acute on chronic COPD exacerbation Feeling better this morning, continue Scheduled and prn DuoNebs Continue IV Steroids,Supplemental oxygen as needed Acute on chronic heart failure with preserved ejection fraction exacerbation Continue IV Lasix 40 mg b.i.d.-900 ml in 24 hrs Last echocardiogram in November of 2020 showing EF of 55-60% with mild pulmonary hypertension Follow echo/seen by Cardiology they agree with above treatment plan and recommend to add spironolactone Strict intake and output, daily weights, follow BMP BNP and magnesium Acute hypoxic respiratory failure due to COPD exacerbation and CHF treatment plan as above History of persistent atrial fibrillation Continue apixaban, and metoprolol Coronary artery disease Continue aspirin, statin, flat troponin History of Roger's esophagus continue PPI DVT prophylaxis with apixaban Full code Quality Stroke Does the patient have a stroke diagnosis?: No VTE Prior VTE?: No VTE Risk Level:: Medical - moderate - high VTE Device Contraindication: Treatment Not Tolerated VTE Drug Contraindication: N/A - Med Ordered
[2021-12-04] MEDS: Sennosides 8.6 MG TABLET PO (20:47)
[2021-12-04] MEDS: Atorvastatin Calcium 40 MG TABLET PO (20:47)
[2021-12-04] MEDS: Benzonatate 100 MG CAPSULE PO (23:49)
[2021-12-05 03:55] VITALS: BP 145/66; PULSE 79; RESP 18; TEMP 36; O2SAT 93
[2021-12-05] MEDS: methylPREDNISolone Sod Succ 40 MG/ML VIAL IVPUSH ×3 (06:08→18:05)
[2021-12-05] MEDS: Omeprazole 20 MG CAPSULE.DR PO ×2 (06:08→17:53)
[2021-12-05 06:34] LABS: Anion Gap 12 (12-20); Blood Urea Nitrogen 38 mg/dL (9-16); Calcium 9.4 mg/dL (8.4-10.2); Carbon Dioxide 30 mmol/L (22-29); Chloride 99 mmol/L (96-108); Creatinine Clr Calc Pharmacy 33.3; Estimated Glomerular Filt Rate 39; Glucose Random 137 mg/dL (60-115); Magnesium 2.3 mg/dL (1.6-2.6); Potassium 3.4 mmol/L (3.3-5.1); Sodium 138 mmol/L (135-145)
[2021-12-05 06:39] LABS: B Type Natriuretic Peptide 583 pg/mL (<100)
[2021-12-05 07:52] VITALS: BP 143/71; PULSE 67; RESP 16; TEMP 36.2; O2SAT 92
[2021-12-05] MEDS: Multivitamin TABLET 1 TAB PO (08:59)
[2021-12-05] MEDS: Metoprolol Tartrate 25 MG TABLET PO ×2 (08:59→20:10)
[2021-12-05] MEDS: Apixaban 5 MG TABLET PO ×2 (08:59→20:10)
[2021-12-05] MEDS: Aspirin Enteric Coated 81 MG TABLET.DR PO (08:59)
[2021-12-05] MEDS: Magnesium Oxide 400 MG TABLET PO (08:59)
[2021-12-05] MEDS: Furosemide 40 MG/4 ML VIAL IVPUSH (08:59)
[2021-12-05] MEDS: Spironolactone 25 MG TABLET 12.5 MG PO (09:00)
--- NOTE | 2021-12-05 09:09 | PM.PNCARD ---
Subjective Subjective Date of Service: 12/05/21 <BOB Smalls - Last Filed: 12/05/21 09:24> 12/05/21 <Vaughn Guevara MD - Last Filed: 12/05/21 11:19> Principal diagnosis: CHF, COPD exacerbation <BOB Smalls - Last Filed: 12/05/21 09:24> Interval history: Cardiology follow up for CHF. Seen at 0820. Today she reports that her breathing is better than admit. She does note a dry cough. Wearing O2 4 liters with sat 92%. Does not wear O2 at home. Slept with HOB down. No chest pains, palpitation, dizziness, leg edema. <BOB Smalls Last Filed: 12/05/21 09:24> Review of Systems Review of Systems as above <BOB Smalls - Last Filed: 12/05/21 09:24> Physical Exam Vital Signs: Last Vital Signs Temp 97.2 F 12/05/21 07:52 Pulse 67 12/05/21 07:52 Resp 16 12/05/21 07:52 BP 143/71 H 12/05/21 07:52 Pulse Ox 92 12/05/21 07:52 BMI result Body Mass Index 27.8 <BOB Smalls Last Filed: 12/05/21 09:24> Const General: cooperative, no acute distress, alert and awake <BOB Smalls - Last Filed: 12/05/21 09:24> Orientation/consciousness: patient oriented x3 <BOB Smalls - Last Filed: 12/05/21 09:24> HENMT Head: Yes normal to inspection <BOB Smalls Last Filed: 12/05/21 09:24> Neck Neck: Yes normal visual inspection and Yes no JVD <BOB Smalls Last Filed: 12/05/21 09:24> Resp Effort & Inspection: normal respiratory effort, able to speak in complete sentences and not labored <BOB Smalls Last Filed: 12/05/21 09:24> Auscultation: clear to auscultation bilaterally, no rhonchi and no wheezes <Kylah Sawyer GONZALO AguirreC - Last Filed: 12/05/21 09:24> Cardio Palpation: normal PMI <Kylah AguirreGONZALOC - Last Filed: 12/05/21 09:24> Rate: regular rate <Kylah AguirreGONZALOC - Last Filed: 12/05/21 09:24> Rhythm: abnormal rhythm irregularly irregular <Kylah Sawyer GONZALO AguirreC - Last Filed: 12/05/21 09:24> Heart sounds: S1 normal heart sound present and S2 normal heart sound present <Kylah GeorgesGONZALO caliC - Last Filed: 12/05/21 09:24> Peripheral pulses: Peripheral pulses 2+ throughout <Kylah GeorgesGONZALO caliC - Last Filed: 12/05/21 09:24> GI Inspection: Yes normal to inspection <Kylah Sawyer GONZALO AguirreC - Last Filed: 12/05/21 09:24> Neuro General: patient oriented x3 <Kylah Sawyer GONZALO AguirreC - Last Filed: 12/05/21 09:24> Extrem General: Yes normal to inspection and No edema <Kylah Sawyer GONZALO AguirreC - Last Filed: 12/05/21 09:24> Objective Labs and Meds Result diagrams: : 12/04/21 06:45 12/05/21 05:48 <Kylah Sawyer BOB Aguirre - Last Filed: 12/05/21 09:24> Lab results: Laboratory Results - last 24 hr 12/05/21 12/05/21 05:48 05:48 Sodium 138 Potassium 3.4 Chloride 99 Carbon Dioxide 30 H Anion Gap 12 BUN 38 H D Creatinine 1.32 Estim Creat Clear Calc 33.3 Estimated GFR 39 Random Glucose 137 H Calcium 9.4 Magnesium 2.3 B-Natriuretic Peptide 583 H <Kylah Sawyer BOB Aguirre - Last Filed: 12/05/21 09:24> Progress Note: A&P Assessment and plan (1) CHF exacerbation: Status: Acute <Kylah Sawyer BOB Aguirre Last Filed: 12/05/21 09:24> Assessment and Plan: Hx chronic HFpEF. Admit with increased sob, hypoxia. Being treated for acute on chronic diastolic HF and acute on chronic COPD exacerbation. CXR on admit shows small bilateral pleural effusion. BNP elevated at 860. Echo showed EF 60-65%, severe LA enlargement, mod MR, mod increase RVSP 48mmhg. Being diuresed with IV Lasix with fluid balance neg 260cc since admit ( 1200 cc voided in last 24hr). Today she reports some improvement in breathing. Still wearing O2 at 4 liter with sat 92%. Few scattered rales noted on exam, no JVD or edema. Seems euvolemic. Cr / BUN rising. BNP down to 583 today. Will stop IV Lasix and change to lasix 40mg po daily. Continue Aldactone, which was added this admit. Ongoing management for COPD, hypoxia as directed by hospitalist. <BOB Smalls - Last Filed: 12/05/21 09:24> Hx chronic HFpEF. Admit with increased sob, hypoxia. Being treated for acute on chronic diastolic HF and acute on chronic COPD exacerbation. CXR on admit shows small bilateral pleural effusion. BNP elevated at 860. Echo showed EF 60-65%, severe LA enlargement, mod MR, mod increase RVSP 48mmhg. Being diuresed with IV Lasix with fluid balance neg 260cc since admit ( 1200 cc voided in last 24hr). Today she reports some improvement in breathing. Still wearing O2 at 4 liter with sat 92%. Few scattered rales noted on exam, no JVD or edema. Seems euvolemic. Cr / BUN rising. BNP down to 583 today. Will stop IV Lasix and change to lasix 40mg po daily. Continue Aldactone, which was added this admit. Ongoing management for COPD, hypoxia as directed by hospitalist. Patient seen and examined. Case discussed with Kylah Aguirre. Patient continues to have cough and productive phlegm. Has diuresed well overall. BNP is down trending. Switch to oral Lasix. Add Aldactone 12.5 mg to her regimen. Continue management of COPD as per the hospitalist team. Will sign off at this point time. <Vaughn Guevara MD - Last Filed: 12/05/21 11:19> (2) COPD exacerbation: Status: Acute <BOB Smalls - Last Filed: 12/05/21 09:24> Assessment and Plan: as above <BOB Smalls Last Filed: 12/05/21 09:24> (3) Persistent atrial fibrillation: Status: Acute <BOB Smalls Last Filed: 12/05/21 09:24> Assessment and Plan: Hx persistent afib. Treated with rate control using metoprolol. Tele showing afib rates 70-80s, occ PVC, one 3 beat NSVT. Pt denies palpitations. Continue Metoprolol. On Eliquis for anticoagulation. No signs of bleeding. Cr 1.32. Continue Eliquis. Ongoing tele monitoring during her admit. <BOB Smalls - Last Filed: 12/05/21 09:24> (4) Coronary artery disease of bypass graft of [place] heart with stable angina pectoris: Status: Acute <BOB Smalls Last Filed: 12/05/21 09:24> Assessment and Plan: Hx CAD with prior CABG. No reports of chest discomfort. EKG not ischemic. Echo with normal EF, no regional WMA. Continue mgt for stable CAD. Will stop aspirin as CABG is > 1 yr and she is on Eliquis. Continue Metoprolol and atorvastatin. <BOB Smalls Last Filed: 12/05/21 09:24> (5) Essential hypertension: Status: Acute <BOB Smalls Last Filed: 12/05/21 09:24> Assessment and Plan: Adequately controlled at present. Continue Metoprolol, aldactone. <BOB Smalls Last Filed: 12/05/21 09:24> Fall Risk Details Current Medications: Current Medications Acetaminophen (Acetaminophen 325 Mg Tablet) 650 mg PO Q6H PRN PRN Reason: Pain, Mild (Pain Scale 1-3) Albuterol/Ipratropium (Albuterol/Iprat 2.5/0.5mg 3 Ml Ampul.Neb) 3 ml INHALE RQ4H WHILE AWAKE [facility] Last Admin: 12/05/21 08:15 Dose: Not Given Documented by: Apixaban (Apixaban 5 Mg Tablet) 5 mg PO BID [facility] Last Admin: 12/04/21 20:47 Dose: 5 mg Documented by: Aspirin (Aspirin Enteric Coated 81 Mg Tablet.) 81 mg PO DAILY [facility] Last Admin: 12/04/21 07:39 Dose: 81 mg Documented by: Atorvastatin Calcium (Atorvastatin Calcium 40 Mg Tablet) 40 mg PO BEDTIME [facility] Last Admin: 12/04/21 20:47 Dose: 40 mg Documented by: Benzonatate (Benzonatate 100 Mg Capsule) 100 mg PO TID PRN PRN Reason: Cough Last Admin: 12/04/21 23:49 Dose: 100 mg Documented by: Calcium Carbonate (Calcium Carbonate 500 Mg Tablet) 500 mg PO BID [facility] Last Admin: 12/04/21 20:47 Dose: 500 mg Documented by: Furosemide (Furosemide 40 Mg/4 Ml Vial) 40 mg IVPUSH BID@0900,1800 [facility]; Protocol Last Admin: 12/04/21 18:49 Dose: 40 mg Documented by: Magnesium Oxide (Magnesium Oxide 400 Mg Tablet) 400 mg PO DAILY [facility] Last Admin: 12/04/21 07:39 Dose: 400 mg Documented by: Methylprednisolone Sodium Succinate (Methylprednisolone Sod Succ 40 Mg/Ml Vial) 40 mg IVPUSH Q12H [facility] Last Admin: 12/05/21 06:08 Dose: 40 mg Documented by: Metoprolol Tartrate (Metoprolol Tartrate 25 Mg Tablet) 25 mg PO BID [facility]; Protocol Last Admin: 12/04/21 20:46 Dose: 25 mg Documented by: Multivitamins/Vitamin C (Multivitamin Tablet) 1 tab PO DAILY [facility] Last Admin: 12/04/21 07:39 Dose: 1 tab Documented by: Omeprazole (Omeprazole 20 Mg Capsule.) 20 mg PO BID@0630,1630 [facility] Last Admin: 12/05/21 06:08 Dose: 20 mg Documented by: Pharmacy Consult (Consult Rx Perform Med Rec) 1 each MISCELLANE ONCE PRN PRN Reason: Consult order Pharmacy Consult (Consult Rx Perform Med Rec) 1 each MISCELLANE ONCE PRN PRN Reason: Consult order Senna (Sennosides 8.6 Mg Tablet) 8.6 mg PO BEDTIME [facility] Last Admin: 12/04/21 20:47 Dose: 8.6 mg Documented by: Sodium Chloride (0.9 % Sodium Chloride Flush 3 Ml Syringe) 3 ml IVFLUSH QSHIFT [facility] Last Admin: 12/04/21 20:47 Dose: 3 ml Documented by: Spironolactone (Spironolactone 25 Mg Tablet) 12.5 mg PO DAILY [facility]; Protocol <BOB Smalls Last Filed: 12/05/21 09:24> Time Spent With Patient Time: Total time spent is greater than 50% in coordination of care (as documented) at patient's floor/unit and/or counseling patient: <BOB Smalls - Last Filed: 12/05/21 09:24> Time with patient: 15 - 24 minutes <BOB Smalls - Last Filed: 12/05/21 09:24> Progress Note: Quality Stroke Does the patient have a stroke diagnosis?: No <BOB Smalls Last Filed: 12/05/21 09:24> Procedures Date of Service Date of Service: 12/05/21 <BOB Smalls - Last Filed: 12/05/21 09:24>
[2021-12-05] MEDS: 0.9 % Sodium Chloride Flush 3 ML SYRINGE IVFLUSH ×3 (09:10→20:10)
[2021-12-05] MEDS: Benzonatate 100 MG CAPSULE PO (11:10)
--- NOTE | 2021-12-05 11:29 | MHC.CM.PN ---
Addendum entered by Gala Conte 12/05/21 16:44: +REDEIVED A CALL FROM PATIENTS DAUGHTER REPORTEING TO ME THAT SHE SPOKE WITH THE [facility] THIS MORNING AND WAS TLD NOTHING OF A POSSIBLE DISCHARGE HOME TODAY AND HAD MANY QUESTIONS , SHE ASKED IF SHE COULD SPEAK WITH THE HOSPITLAIST , THIS MESSAGE WAS GIVEN TO THE HSOPTIALSIT , PATIENT NOW CONTINUES WITH NEED ING OXYGEN AND NCURRENT PLAN IS TO KEEP HER ONE MORE DAY AND SEE IF WE CAN TIRTRATE HER TO [facility] AND THEN SHE COULD BE D.C TOMORROW . 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
--- NOTE | 2021-12-05 13:10 | P.PNIM_ITS ---
Subjective Subjective Date of Service: 12/05/21 Interval History: Not feeling well, Complaining of dry cough, less shortness of breath, no orthopnea, no PND, no chest pain no lightheadedness or dizziness, no fevers, no chills. Review of Systems Review of Systems: Yes all other systems are reviewed and are negative Physical Exam Vital Signs: Vital Signs: Last Vital Signs Temp 97.2 F 12/05/21 07:52 Pulse 67 12/05/21 07:52 Resp 16 12/05/21 07:52 BP 143/71 H 12/05/21 07:52 Pulse Ox 92 12/05/21 07:52 BMI result Body Mass Index 27.8 General coughing, in no acute distre ss.? Neck supple n o JVD. CVS? regula r rate rhythm, Res piratory lungs mundo ar to auscultation , no respiratory d istress, no wheeze , no rhonchi, no r ales Gastrointesti nal abdomen soft, nontender, bowel s ounds audible Extr emities no edema. Neuro nonfocal ,sp eech clear. Skin n o rash Psych appro priate insight Objective Data Active Medications Acetaminophen (Acetaminophen 325 Mg Tablet) 650 mg PO Q6H PRN PRN Reason: Pain, Mild (Pain Scale 1-3) Albuterol/Ipratropium (Albuterol/Iprat 2.5/0.5mg 3 Ml Ampul.Neb) 3 ml INHALE RQ4H WHILE AWAKE [facility] Last Admin: 12/05/21 11:38 Dose: Not Given Documented by: ERIC Non-Admin Reason: Patient Asleep Apixaban (Apixaban 5 Mg Tablet) 5 mg PO BID [facility] Last Admin: 12/05/21 08:59 Dose: 5 mg Documented by: NIHARIKA Atorvastatin Calcium (Atorvastatin Calcium 40 Mg Tablet) 40 mg PO BEDTIME [facility] Last Admin: 12/04/21 20:47 Dose: 40 mg Documented by: JOSESITO Benzonatate (Benzonatate 100 Mg Capsule) 100 mg PO TID [facility] Last Admin: 12/05/21 11:10 Dose: 100 mg Documented by: NIHARIKA Calcium Carbonate (Calcium Carbonate 500 Mg Tablet) 500 mg PO BID [facility] Last Admin: 12/05/21 08:59 Dose: 500 mg Documented by: NIHARIKA Furosemide (Furosemide 40 Mg Tablet) 40 mg PO DAILY [facility]; Protocol Magnesium Oxide (Magnesium Oxide 400 Mg Tablet) 400 mg PO DAILY [facility] Last Admin: 12/05/21 08:59 Dose: 400 mg Documented by: NIHARIKA Methylprednisolone Sodium Succinate (Methylprednisolone Sod Succ 40 Mg/Ml Vial) 40 mg IVPUSH Q12H [facility] Last Admin: 12/05/21 06:08 Dose: 40 mg Documented by: JOSESITO Metoprolol Tartrate (Metoprolol Tartrate 25 Mg Tablet) 25 mg PO BID [facility]; Protocol Last Admin: 12/05/21 08:59 Dose: 25 mg Documented by: NIHARIKA Multivitamins/Vitamin C (Multivitamin Tablet) 1 tab PO DAILY [facility] Last Admin: 12/05/21 08:59 Dose: 1 tab Documented by: NIHARIKA Omeprazole (Omeprazole 20 Mg Capsule.Dr) 20 mg PO BID@0630,1630 [facility] Last Admin: 12/05/21 06:08 Dose: 20 mg Documented by: JOSESITO Pharmacy Consult (Consult Rx Perform Med Rec) 1 each MISCELLANE ONCE PRN PRN Reason: Consult order Pharmacy Consult (Consult Rx Perform Med Rec) 1 each MISCELLANE ONCE PRN PRN Reason: Consult order Senna (Sennosides 8.6 Mg Tablet) 8.6 mg PO BEDTIME [facility] Last Admin: 12/04/21 20:47 Dose: 8.6 mg Documented by: JOSESITO Sodium Chloride (0.9 % Sodium Chloride Flush 3 Ml Syringe) 3 ml IVFLUSH QSHIFT [facility] Last Admin: 12/05/21 09:10 Dose: 3 ml Documented by: NIHARIKA Spironolactone (Spironolactone 25 Mg Tablet) 12.5 mg PO DAILY [facility]; Protocol Last Admin: 12/05/21 09:00 Dose: 12.5 mg Documented by: NIHARIKA Labs CBC & Chem 7: 12/04/21 06:45 12/05/21 05:48 Labs: Laboratory Results - last 24 hr 12/05/21 12/05/21 05:48 05:48 Anion Gap 12 Estim Creat Clear Calc 33.3 Estimated GFR 39 Random Glucose 137 H Calcium 9.4 Magnesium 2.3 B-Natriuretic Peptide 583 H Assessment and Plan (1) Acute respiratory failure with hypoxia: Status: Acute (2) CHF exacerbation: Status: Acute (3) Essential hypertension: Status: Acute (4) Peripheral vascular disease: Status: Acute (5) COPD exacerbation: Status: Acute (6) Hypercholesterolemia: Status: Acute (7) Roger's esophagus: Status: Acute (8) Coronary artery disease of bypass graft of [place] heart with stable angina pectoris: Status: Acute Assessment and Plan: 81-year-old woman with past medical history of COPD, chronic congestive heart failure with preserved EF, history of coronary artery disease status post CABG presented to [facility] with shortness of breath, productive cough of cl ear phlegm of last several weeks , without associated chest pain, denies orthopnea no PND, denies fever chills, denies weight loss, usually sleeps with 1 flat pillow, but since shortness of breath was progressing worse with ambulation therefore decided to come to emergency room and diagnosed to have acute on chronic COPD exacerbation and acute on chronic congestive heart failure exacerbation with preserved EF Acute on chronic COPD exacerbation spoke with patient's daughter lazara Gonzalez [phone] she says patient does not have diagnosis of COPD and since patient has cognitive impairment she does not remember her medical issues Patient quit smoking long time ago Will obtain respiratory viral panel, add cough medication Continue IV steroids, Scheduled and prn DuoNebs Acute on chronic heart failure with preserved ejection fraction exacerbation Continue IV Lasix 40 mg b.i.d.-900 ml in 24 hrs Last echocardiogram in November of 2020 showing EF of 55-60% with mild pulmonary hypertension seen by Cardiology they recommend to change IV Lasix to by mouth and added spironolactone Echo showed normal LV function, indeterminate diastolic function EF 60-65% Continue Strict intake and output, daily weights, BNP down to 583, BUN home bumped to 38, creatinine bumped to 1.32, magnesium 2.3 Acute hypoxic respiratory failure due to CHF exacerbation//viral illness question undiagnosed COPD Not on home oxygen will wean oxygen gradually as tolerated to keep finger oximetry >92 Obtain home O2 eval if remains hypoxic History of persistent atrial fibrillation Continue apixaban, and metoprolol Coronary artery disease Continue aspirin, statin, flat troponin History of Roger's esophagus continue PPI Mild cognitive impairment DVT prophylaxis with apixaban Full code Quality Stroke Does the patient have a stroke diagnosis?: No VTE Prior VTE?: No VTE Risk Level:: Medical - moderate - high VTE Device Contraindication: Treatment Not Tolerated VTE Drug Contraindication: N/A - Med Ordered
[2021-12-05 16:00] VITALS: BP 141/61; PULSE 84; RESP 17; TEMP 35.8; O2SAT 92
[2021-12-05] MEDS: guaiFENesin DM 100/10/5 ML 5 ML SYRUP 10 ML PO ×2 (17:49→20:13)
[2021-12-05 19:50] VITALS: BP 182/88; PULSE 90; RESP 18; TEMP 37; O2SAT 95
[2021-12-05] MEDS: Throat Lozenge, Medicated LOZENGE 1 LOZENGE MUCOUS MEM ×2 (20:10→22:50)
[2021-12-05] MEDS: Sennosides 8.6 MG TABLET PO (20:10)
[2021-12-05] MEDS: Atorvastatin Calcium 40 MG TABLET PO (20:10)
[2021-12-05] MEDS: Albuterol/Iprat 2.5/0.5MG 3 ML AMPUL.NEB INHALE (20:26)
[2021-12-05 20:27] VITALS: PULSE 94; RESP 18; O2SAT 95
[2021-12-05 23:19] VITALS: BP 155/71; PULSE 81; RESP 18; TEMP 36.6; O2SAT 94
[2021-12-06 03:23] VITALS: BP 154/67; PULSE 66; RESP 18; TEMP 36.5; O2SAT 95
[2021-12-06] MEDS: Omeprazole 20 MG CAPSULE.DR PO ×2 (05:45→16:22)
[2021-12-06] MEDS: methylPREDNISolone Sod Succ 40 MG/ML VIAL IVPUSH (05:45)
[2021-12-06 06:47] LABS: Anion Gap 13 (12-20); Blood Urea Nitrogen 48 mg/dL (9-16); Calcium 9.3 mg/dL (8.4-10.2); Carbon Dioxide 31 mmol/L (22-29); Chloride 98 mmol/L (96-108); Creatinine Clr Calc Pharmacy 32.6; Estimated Glomerular Filt Rate 38; Glucose Random 101 mg/dL (60-115); Potassium 3.7 mmol/L (3.3-5.1); Sodium 138 mmol/L (135-145)
[2021-12-06 07:27] VITALS: PULSE 76; RESP 17; O2SAT 97
[2021-12-06] MEDS: Albuterol/Iprat 2.5/0.5MG 3 ML AMPUL.NEB INHALE ×2 (07:27→11:48)
[2021-12-06 07:50] VITALS: BP 163/72; PULSE 84; RESP 17; TEMP 36.8; O2SAT 93
[2021-12-06] MEDS: 0.9 % Sodium Chloride Flush 3 ML SYRINGE IVFLUSH (09:03)
[2021-12-06] MEDS: Throat Lozenge, Medicated LOZENGE 1 LOZENGE MUCOUS MEM (09:04)
[2021-12-06] MEDS: guaiFENesin DM 100/10/5 ML 5 ML SYRUP 10 ML PO ×2 (09:04→16:19)
[2021-12-06] MEDS: Magnesium Oxide 400 MG TABLET PO (09:05)
[2021-12-06] MEDS: Furosemide 40 MG TABLET PO (09:05)
[2021-12-06] MEDS: Metoprolol Tartrate 25 MG TABLET PO (09:05)
[2021-12-06] MEDS: Multivitamin TABLET 1 TAB PO (09:05)
[2021-12-06] MEDS: Spironolactone 25 MG TABLET 12.5 MG PO (09:05)
[2021-12-06] MEDS: Apixaban 5 MG TABLET PO (09:06)
[2021-12-06 12:00] VITALS: BP 142/83; PULSE 86; RESP 20; TEMP 36.3; O2SAT 95
[2021-12-06 13:32] VITALS: O2SAT 94
--- NOTE | 2021-12-06 13:33 | PC.NURSE ---
Patient ambulated 100feet,sat94%onRA,refused to ambulate with oxygen on at this time stating she is to tired
--- NOTE | 2021-12-06 14:12 | P.DS_ITS ---
DS: Providers Provider Date of Service: 12/06/21 Date of admission: 12/03/21 18:17 Primary care physician: Edwin Allen MD Consults: 12/03/21 18:18 Consult to Cardiology Routine Consulting Provider: Vaughn Guevara Reason for consultation: chf Has provider been notified: No 12/04/21 10:19 Consult to Cardiology Routine Consulting Provider: Vaughn Guevara Reason for consultation: chf Has provider been notified: No DS: Diagnosis Discharge Diagnosis (1) Acute respiratory failure with hypoxia: Status: Acute (2) CHF exacerbation: Status: Acute (3) Essential hypertension: Status: Acute (4) Peripheral vascular disease: Status: Acute (5) COPD exacerbation: Status: Acute (6) Hypercholesterolemia: Status: Acute (7) Roger's esophagus: Status: Acute (8) Coronary artery disease of bypass graft of [place] heart with stable angina pectoris: Status: Acute DS: Summary Hospital Course Hospital Course: History of presenting illness Chief complaint shortness of breath 81-year-old woman presenting with complaints of worsening shortness of breath and cough over the last 3 days.? She reports that she has been having trouble sleeping and has actually been sleeping upright in a recliner/chair.? She has had episodes of waking up at night with shortness of breath.? She denies any chest pain, nausea, vomiting, diarrhea, recent illness, sick contacts, fever, chills.? She does have history of congestive heart failure and takes furosemide at home.? In the ER troponin was mildly elevated at 18.4 with repeat of 18.2, BNP 860, chest x-ray negative for consolidation, noted small bilateral pleural effusions, COVID-19 negative, no hypoxia noted on room air.? She was given a dose of topical nitroglycerin, IV Lasix.? She will be admitted for further management of acute on chronic congestive heart failure and acute on chronic COPD exacerbation. Hospital course 81-year-old woman with past medical history of COPD, chronic congestive heart failure with preserved EF, history of coronary artery disease status post CABG presented to [facility] with shortness of breath, productive cough of clear phlegm of last several weeks , without associated chest pain, denies orthopnea no PND, denies fever chills, denies weight loss, usually sleeps with 1 flat pillow, but since shortness of breath was progressing, worse with ambulation therefore decided to come to emergency room and diagnosed to have acute on chronic COPD exacerbation and acute on chronic congestive heart failure exacerbation with preserved EF Patient admitted with a diagnosis of acute hypoxic respiratory failure due to CHF exacerbation with preserved EF, patient also informed that she has COPD but after talking to patient's daughter Sadaf Gonzalez [phone] she informed that patient does not have diagnosis of COPD and since patient has cognitive impairment she does not remember her medical issues, therefore diagnosis of COPD has been deleted from her diagnosis, likely patient had viral upper respiratory infection, patient treated with IV Lasix, cough medications and updraft treatment she responded well to above treatment currently doing significantly better appears euvolemic patient seen by staff anesthetist they agreed with above treatment and recommended to discontinue aspirin since patient CABG is greater than 1 year, will continue home medications including statins and beta- blockers, patient oxygenation improved currently on room air finger oximetry 94% patient continued to have dry cough for which she has been recommended to use cough medication and cough drops, COVID-19 test is negative, chest x-ray showed no infiltrate. Echo showed normal LV function, indeterminate diastolic function EF 60-65%. In regard to history persistent atrial fibrillation she has been recommended to continue Eliquis and metoprolol History of Roger's esophagus continue PPI Time Spent with Patient Time attestation: Total time spent providing and/or coordinating discharge services: Discharge coordination time: Greater than 30 minutes Quality: Stroke Does the patient have a stroke diagnosis?: No Physical Exam Vital Signs: Vital Signs: Last Vital Signs Temp 97.3 F 12/06/21 12:00 Pulse 86 12/06/21 12:00 Resp 20 12/06/21 12:00 BP 142/83 H 12/06/21 12:00 Pulse Ox 94 12/06/21 13:32 BMI result Body Mass Index 27.8 General in no acute distress.? Neck supple, no JVD. CVS? regular rate rhythm, Respiratory lungs clear to auscultation, no respiratory distress, no wheeze, no rhonchi, no rales Gastrointestinal abdomen soft,nontender, bowel sounds audible Extremities no edema. Neuro nonfocal ,speech clear. Skin no rash Psych appropriate insight DS: Data Data Completed and Pending Labs on day of discharge: Laboratory Results - last 24 hr 12/06/21 05:55 Sodium 138 Potassium 3.7 Chloride 98 Carbon Dioxide 31 H Anion Gap 13 BUN 48 H Creatinine 1.35 Estim Creat Clear Calc 32.6 Estimated GFR 38 Random Glucose 101 Calcium 9.3 Discharge Plan Discharge Patient Disposition: Home Health Service Discharge Diagnosis: Acute hypoxic respiratory failure due to viral infection Acute CHF exacerbation with preserved EF Referrals: Edwin Allen MD [Primary Care Provider] - 01/01/22 10:00 am (You have a follow up appointment on January 01 at 10:[address] Batista) Discharge Medications: New dextromethorphan-guaifenesin 10-100 mg/5 mL Syrup 10 ml PO QID Qty: 240 RF: 0 Cepacol Sore Throat (barney-men) 15-3.6 mg Lozenge 1 brandon mucous membrane Q2H PRN (Reason: Sore Throat) Qty: 30 RF: 0 Continued Eliquis 5 mg tablet 5 mg PO BID Qty: 180 RF: 3 metoprolol tartrate 25 mg tablet 25 mg PO BID RF: 0 furosemide 20 mg tablet 2 tab PO DAILY RF: 0 calcium carbonate 500 mg calcium (1,250 mg) Tablet 500 mg PO BID RF: 0 magnesium oxide 400 mg magnesium Tablet 400 mg PO DAILY RF: 0 atorvastatin 40 mg tablet 40 mg PO BEDTIME RF: 0 spironolactone 25 mg tablet 12.5 mg PO BEDTIME RF: 0 sennosides [senna] 8.6 mg tablet 8.6 mg PO BEDTIME RF: 0 multivitamin Tablet 1 tab PO DAILY RF: 0 omeprazole 20 mg capsule,delayed release(DR/EC) 20 mg PO BID RF: 0 Discontinued aspirin [Adult Aspirin Regimen] 81 mg tablet,delayed release (DR/EC) 81 mg PO DAILY RF: 0 Discharge Orders: Discharge Order (Routine); Ordered 12/06/21 Ordered By: Familia Hansen Diet: low fat, low cholesterol and low salt diet Activity on Discharge: As tolerated Stand Alone Forms: Patient Portal Discharge page Care Plan Goals: Mild acute CHF exacerbation improved, viral upper respiratory infection take cough medication and cough drops as needed, rest Continue all home medications as before stop asa Health Concerns: Congestive heart failure , coronary artery disease, persistent atrial fibrillation, follow low-salt diet and continue all home medication Plan of Treatment: Outpatient follow-up with primary care physician in 7 -10 days and Cardiology in 2-3 weeks Assessment: Per discharge summary
[2021-12-06 14:27] LABS: Adenovirus PCR Not Detected (Not Detect.); Bordetella parapertussis PCR Not Detected (Not Detect.); Bordetella pertussis PCR Not Detected (Not Detect.); Chlamydia pneumoniae PCR Not Detected (Not Detect.); Coronavirus 229E PCR Not Detected (Not Detect.); Coronavirus HKU1 PCR Not Detected (Not Detect.); Coronavirus NL63 PCR Not Detected (Not Detect.); Coronavirus OC43 PCR Not Detected (Not Detect.); Human metapneumovirus PCR Not Detected (Not Detect.); Influenza A PCR Not Detected (Not Detect.); Influenza B PCR Not Detected (Not Detect.); SARS-CoV-2 PCR Not Detected (Not Detect.)
[2021-12-06 14:28] LABS: Mycoplasma pneumoniae PCR Not Detected (Not Detect.); Parainfluenza 1 PCR Not Detected (Not Detect.); Parainfluenza 2 PCR Not Detected (Not Detect.); Parainfluenza 3 PCR Not Detected (Not Detect.); Parainfluenza 4 PCR Not Detected (Not Detect.); Rhino/Enterovirus PCR Not Detected (Not Detect.)
--- NOTE | 2021-12-06 14:30 | MHC.CM.PN ---
Addendum entered by Roslyn Marquez 12/06/21 14:37: PATIENT RETURNING HOME WITH 12/09/21 START OF CARE WITH [facility] PATIENT AND DAUGHTER AWARE AND IN AGREEMENT. DAUGHTER STATES THAT FAMILY WILL BE WITH HER Original Note: PER CONVERSATION WITH DAUGHTER, KRISTIAN [phone], PATIENT'S SON OSIEL WILL BE HERE TO PICK PATIENT UP AROUND 1700 TONIGHT.
--- NOTE | 2021-12-06 15:34 | W.MHC.F2F ---
Service Date Service Date: 12/06/21 Encounter Date of encounter: 12/06/21 Reasons for Services Signs and symptoms assessed: Shortness of breath and cough Reason for long-term: medication management Homebound: Leaving the home is medically contraindicated at this time without the asist of a device and/or another person due th the listed conditions above and below. Reason homebound: weakness related to hospital stay Certification: Based on the above findings, I certify that this patient is confined to the home and needs intermittent long-term care, physical therapy and/or speech therapy, or continues to need occupational therapy. The patient is under my care, and I have initiated the establishment of the plan of care. The patient will be followed by a physician who will periodically review the plan of care.
[2021-12-06 15:37] VITALS: BP 137/59; PULSE 80; RESP 18; TEMP 36.6; O2SAT 97
[2021-12-06 15:43] LABS: RSV PCR Detected (Not Detect.)
== END 2021-12-06 17:40 | disposition home health service (06) | DRG 291 ==
LOC: HO.ED 17:02 → HO.EDOVER 18:29 → HO.S3 12-04 09:43
PROVIDERS: Admitting Provider Nurse Practitioner Acute Care; Emergency Provider Student in an Organized Health Care Education/Training Program; PCP Internal Medicine; Visit Provider Hospitalist
DX: I11.0 Hypertensive heart disease with heart failure (principal); I50.33 Acute on chronic diastolic (congestive) heart failure; J96.01 Acute respiratory failure with hypoxia; J44.1 Chronic obstructive pulmonary disease with (acute) exacerbation; I48.19 Other persistent atrial fibrillation; I25.119 Atherosclerotic heart disease of native coronary artery with unspecified angina pectoris; I73.9 Peripheral vascular disease, unspecified; E78.00 Pure hypercholesterolemia, unspecified; K22.70 Barrett's esophagus without dysplasia; Z20.822 Contact with and (suspected) exposure to COVID-19; Z87.891 Personal history of nicotine dependence; Z91.040 Latex allergy status; Z79.01 Long term (current) use of anticoagulants; Z79.899 Other long term (current) drug therapy
CPT/HCPCS: 36415; 71046; 80048; 80053; 83735; 83880; 84484; 85025; 87633; 87635; 93005; 93306; 94640; 96374; 99285; J1940; J2920

== ENCOUNTER 2022-01-08 11:05 | Outpatient (REF) | payer MEDICARE, SELFPAY ==
[2022-01-08 12:20] LABS: MANUAL DIFF FLAG NO
[2022-01-08 12:59] LABS: Basophils Percent Auto 0.4 % (0-2); Eosinophils Absolute Auto 0.2 X10*3/uL (0.0-0.4); Eosinophils Percent Auto 3.1 % (0-4); Hematocrit 39.5 % (37.0-47.0); Imm Gran Abs Auto 0.03 X10*3/uL (0.00-0.03); Imm Gran Pct Auto 0.4 % (0.0-0.4); Lymphocytes Absolute Auto 1.3 X10*3/uL (1.2-4.9); Lymphocytes Percent Auto 15.9 % (20-40); Mean Corpuscular HGB Conc 32.9 g/dl (31.0-35.0); Mean Corpuscular Hemoglobin 28.3 pg (27.0-33.0); Mean Corpuscular Volume 86.1 fL (80.0-98.0); Mean Platelet Volume 10.3 fL (9.4-12.3); Monocytes Absolute Auto 0.5 X10*3/uL (0.1-1.2); Monocytes Percent Auto 6.9 % (2-11); Neutrophils Absolute Auto 5.8 x10*3/uL (2.0-8.3); Neutrophils Percent Auto 73.3 % (45-73); Platelet Count 216 X10*3/uL (160-400); Red Blood Count 4.59 X10*6/uL (4.20-5.50); Red Cell Distribution Width 14.3 % (11.0-16.0); White Blood Count 7.8 X10*3/uL (4.8-10.8)
[2022-01-08 13:26] LABS: B Type Natriuretic Peptide 603 pg/mL (<100)
[2022-01-08 14:08] LABS: Alanine Aminotransferase 9 U/L (0-31); Albumin Level 3.6 g/dL (3.5-5.0); Alkaline Phosphatase 128 U/L (39-117); Anion Gap 11 (12-20); Aspartate Amino Transferase 21 U/L (5-31); Bilirubin Total 0.8 mg/dL (0.0-1.0); Carbon Dioxide 28 mmol/L (22-29); Chloride 103 mmol/L (96-108); Estimated Glomerular Filt Rate 47; Glucose Random 89 mg/dL (60-115); Potassium 4.2 mmol/L (3.3-5.1); Sodium 138 mmol/L (135-145); Total Protein 6.9 g/dL (6.5-8.0)
[2022-01-08 14:13] LABS: Free T4 (Free Thyroxine) 1.14 ng/dL (0.71-1.85)
[2022-01-08 15:17] LABS: Blood Urea Nitrogen 16 mg/dL (9-16); Calcium 9.6 mg/dL (8.4-10.2)
== END 2022-01-08 11:06 | disposition home or self-care (01) ==
LOC: HO.LAB 11:05
PROVIDERS: Absent Provider Internal Medicine; PCP Internal Medicine; Visit Provider Internal Medicine
DX: I25.10 Atherosclerotic heart disease of native coronary artery without angina pectoris (principal); I48.19 Other persistent atrial fibrillation; I11.0 Hypertensive heart disease with heart failure; I50.32 Chronic diastolic (congestive) heart failure; I73.9 Peripheral vascular disease, unspecified
CPT/HCPCS: 36415; 80053; 83880; 84439; 84443; 85025; 99212

== ENCOUNTER → 2022-04-16 12:28 | Outpatient (BNVA) | payer MEDICARE, SELFPAY ==
[2022-02-26 13:38] VITALS: BP 122/70; BP 132/80
[2022-03-25 09:57] VITALS: BP 120/70; BMI 26.8
== END ==
PROVIDERS: PCP Internal Medicine; Referring Provider Internal Medicine; Visit Provider Internal Medicine
DX: I11.0 Hypertensive heart disease with heart failure (principal); I50.32 Chronic diastolic (congestive) heart failure; I25.10 Atherosclerotic heart disease of native coronary artery without angina pectoris; I48.19 Other persistent atrial fibrillation; I73.9 Peripheral vascular disease, unspecified; Z95.1 Presence of aortocoronary bypass graft
CPT/HCPCS: 99212

== ENCOUNTER → 2022-05-20 12:59 | Outpatient (BNVA) | payer MEDICARE, SELFPAY ==
[2022-02-26 13:38] VITALS: BP 122/70; BP 132/80
[2022-05-20 07:32] VITALS: BP 114/62; BMI 26.8
== END ==
PROVIDERS: PCP Internal Medicine; Visit Provider Surgery Vascular Surgery
DX: I73.9 Peripheral vascular disease, unspecified (principal); Z79.01 Long term (current) use of anticoagulants; Z79.899 Other long term (current) drug therapy
CPT/HCPCS: 99202

== ENCOUNTER 2022-08-25 14:00 | Outpatient (REF) | payer MEDICARE, SELFPAY ==
[2022-02-26 13:38] VITALS: BP 122/70; BP 132/80
[2022-06-19 07:10] VITALS: BP 126/62; BMI 26.8
[2022-08-18 08:32] VITALS: BP 118/68; BMI 28.6
--- NOTE | ~2022-08-25 | US_ITS ---
EXAMINATION: Noninvasive assessment of the bilateral lower extremities with ARTERIAL DUPLEX and ANKLE BRACHIAL INDICES (ABIs). CLINICAL INFORMATION: Peripheral vascular disease. History of right femoral endarterectomy and thrombectomy TECHNIQUE: Duplex Doppler techniques with waveform analysis and measurement of velocities in the bilateral common femoral, profunda femoris, superficial femoral, popliteal and tibial arteries were performed. Additionally, ankle pulse volume recordings, ankle pressure measurements and ankle brachial indices were obtained of the lower extremity arterial system bilaterally. The study was performed only at rest. COMPARISON: None FINDINGS: DIRECT DUPLEX DOPPLER FINDINGS: RIGHT LEG: Common femoral artery: 359 cm/s, phasicity: Biphasic. No significant atherosclerotic plaque Profunda femoris artery: 92 cm/s, phasicity: Biphasic Superficial femoral artery (proximal): 91 cm/s, phasicity: Biphasic Superficial femoral artery (mid): 64 cm/s, phasicity: Biphasic Superficial femoral artery (distal): 79 cm/s, phasicity: Biphasic Popliteal artery: 104 cm/s, phasicity: Biphasic Posterior tibial artery: 89 cm/s, phasicity: Biphasic Peroneal artery: 72 cm/s, phasicity: Biphasic LEFT LEG: Common femoral artery: 155 cm/s, phasicity: Biphasic. Mild calcified plaque Profunda femoris artery: 76 cm/s, phasicity: Biphasic Superficial femoral artery (proximal): 130 cm/s, phasicity: Biphasic. Mild to moderate eccentric calcified plaque Superficial femoral artery (mid): 77 cm/s, phasicity: Biphasic Superficial femoral artery (distal): 67 cm/s, phasicity: Biphasic Popliteal artery: 55 cm/s, phasicity: Biphasic Posterior tibial artery: 89 cm/s, phasicity: Biphasic Peroneal artery: 59 cm/s, phasicity: Biphasic ANKLE-BRACHIAL INDEX: Right: 1.09? Left: 0.95 ANKLE PRESSURES: Right: PT 161, DP 118 Left: PT?140, DP?160 ANKLE PVR WAVEFORMS: Right: Minimally dampened Left: Minimally dampened US/US arterial duplex LE BI IMPRESSION: Right leg: Normal ankle brachial index with minimally dampened pulse waveform. Elevated velocity seen in the common femoral artery on the duplex Doppler. No significant atherosclerotic plaque is seen. Normal velocities and waveforms throughout the right lower extremity otherwise. No significant arterial stenosis or occlusion Left leg: Normal ankle brachial index with minimally dampened pulse volume waveform. Normal velocities in the distal posterior tibial waveforms throughout the left lower extremity with scattered calcified plaque seen. No significant arterial stenosis or occlusion YURI Reference: - >1.4 = calcified vessels - 0.9 - 1.4 = normal - no significant arterial disease - 0.7 - 0.89 = mild peripheral arterial disease - 0.51 - 0.69 = moderate peripheral arterial disease - ? 0.50 = severe peripheral arterial disease - < .30 = critical arterial disease
== END 2022-08-25 14:01 | disposition home or self-care (01) ==
LOC: HO.US 14:00
PROVIDERS: Visit Provider Surgery Vascular Surgery
DX: I73.9 Peripheral vascular disease, unspecified (principal)
CPT/HCPCS: 93923; 93925

== ENCOUNTER → 2022-09-30 14:58 | Outpatient (BNVA) | payer MEDICARE, SELFPAY ==
[2022-02-26 13:38] VITALS: BP 122/70; BP 132/80
[2022-09-18 08:45] VITALS: BP 118/62; BMI 28.6
== END ==
PROVIDERS: PCP Internal Medicine; Visit Provider Surgery Vascular Surgery
DX: I73.9 Peripheral vascular disease, unspecified (principal)
CPT/HCPCS: 99212

== ENCOUNTER 2022-10-22 12:24 | Inpatient (IN) | payer MEDICARE, SELFPAY ==
[2022-02-26 13:38] VITALS: BP 122/70; BP 132/80
[2022-10-20 12:25] VITALS: BP 116/64; BMI 28.6
--- NOTE | ~2022-10-22 | XR_ITS ---
EXAMINATION: XR CHEST CLINICAL INFORMATION: Shortness of breath. COMPARISON: 12/03/2021 chest radiographs. TECHNIQUE: 2 views of the chest were obtained. FINDINGS: There are increased pulmonary vascular markings. Minimal blunting of the costophrenic angles and sulci. The heart is mildly enlarged. Atrial appendage clip is noted in place. Multilevel sternotomy wires are intact. The mediastinal structures are unremarkable. There is a large hiatal hernia. XR/XR chest 2V IMPRESSION: 1. Mild CHF and small bilateral pleural effusions. 2. Large hiatal hernia.
[2022-10-22 12:25] VITALS: BP 163/62; PULSE 91; RESP 20; TEMP 36.2; O2SAT 97; BMI 27.4
--- NOTE | 2022-10-22 12:30 | ED.GENADULT ---
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 She describes her symptoms as difficulty getting enough air. She states that her symptoms began spontaneously and denies any exacerbating or alleviating factors. She reports that her symptoms are constant and unchanging since onset. She denies any recent hx of fever or known sick contacts. She endorses a 3-day hx of a non-productive cough. She denies any pain on inspiration or expiration, chest pain, dizziness, or lightheadedness. She denies abd pain or changes to her bowel habits. She endorses hx of cigarette smoking for which she quit approx 50 years ago. Onset (ago): day(s) (1) Location: chest Radiation: non-radiation Severity: mild Severity scale (1-10): 2 Quality: dull Pain Consistency: constant Relieving factors: none Exacerbating factors: none Associated symptoms: shortness of breath Treatments prior to arrival: none Related Data Home Medications Medication Instructions Recorded Confirmed multivitamin 1 tab PO DAILY 09/04/20 10/22/22 atorvastatin 40 mg tablet 40 mg PO BEDTIME 12/03/21 10/22/22 calcium carbonate 500 mg calcium 500 mg PO BID 12/03/21 10/22/22 (1,250 mg) tablet magnesium oxide 400 mg PO DAILY 12/03/21 10/22/22 Previous Rx's Medication Instructions Recorded metoprolol tartrate 25 mg tablet 25 mg PO BID 90 days #180 tabs 01/01/22 omeprazole 20 mg capsule,delayed 20 mg PO BID 90 days #180 caps 04/01/22 release apixaban 5 mg tablet (Eliquis) 5 mg PO BID #180 tabs 10/16/22 Allergies Allergy/AdvReac Type Severity Reaction Status Date / Time latex Allergy Mild rash Verified 09/30/22 15:15 simvastatin [Simvastatin] Allergy Mild NAUSEA Verified 09/30/22 15:15 Review of Systems Constitutional: Constitutional: Reports no additional constitutional complaints, Denies chills, Denies fever(s) and Denies night sweats Eyes: Eyes: Denies no additional eye complaints ENT: Denies dizziness Cardiovascular: Cardiovascular: Reports no additional cardiovascular complaints, Denies chest pain, Denies lightheadedness, Denies Loss of Consciousness, Denies palpitations and Reports dyspnea (constant, unchanging) Respiratory: Respiratory: Reports no additional respiratory complaints and Reports dyspnea (constant, unchanging) Gastrointestinal: Gastrointestinal: Reports no additional gastrointestinal complaints, Denies abdominal pain, Denies change in bowel habits and Denies change in stool character Musculoskeletal: Musculoskeletal: Reports no additional musculoskeletal complaints Neurologic: Denies dizziness Psychiatric: Psychiatric: Reports no additional psychiatric complaints Endocrine: Endocrine: Reports no additional endocrine complaints and Denies palpitations Hematologic/Lymphatic: Hematologic/Lymphatic: Reports no additional hematologic/lymphatic complaints Allergic/Immunologic: Allergic/Immunologic: Reports no additional allergic/immunologic complaints [facility] Past Medical History Attestation statement: The following information was validated with the patient. 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 Mother No problems noted. Social History Social History Household Members: Family Housing: House Do you presently have visiting nurse or other home services: No Alcohol intake: never Patient Tobacco Use Status: Former Tobacco user Tobacco use type: Cigarette Smoked in Last 30 Days: No e-Cigarette/Vaping Use: Never Used Second Hand Smoke Exposure: No Use of substances other than those prescribed or required for medical reasons: No Advance Directives: No service: No Current occupational status: retired Cognitive needs: Yes Hearing needs: No Vision needs: Yes Physical Exam ED Vital Signs: Vital Signs - 24 hr 10/22/22 12:25 10/22/22 14:34 Temperature 97.2 F Pulse Rate 91 93 Respiratory Rate 20 21 H Blood Pressure 163/62 H 148/71 H Pulse Oximetry 97 93 Oxygen Delivery Method Room Air Room Air BMI result Body Mass Index 27.4 Const General: healthy appearing, comfortable and no acute distress Orientation/consciousness: patient oriented x3 Limitations: no limitations HENMT Head: Yes normal to inspection Ears: hearing grossly normal bilaterally Neck Neck: Yes normal visual inspection, Yes trachea midline and Yes no JVD Thyroid: Thyroid normal Lymphatic: no lymphadenopathy noted Chest Chest palpation & inspection: normal inspection of the chest and normal palpation of entire chest wall Resp Effort & Inspection: normal respiratory effort, able to speak in complete sentences and no audible wheezes Auscultation: diminished lung sounds on the left Cardio Jugular venous distension: no JVD Rate: regular rate Rhythm: regular rhythm Heart sounds: S1 normal heart sound present and S2 normal heart sound present Peripheral pulses: Peripheral pulses 2+ throughout GI Inspection: Yes normal to inspection Palpation (GI): Soft to palpation, not firm, nontender, no guarding and not rigid Rectal Exam - Female: deferred Skin General skin exam: no rashes or lesions noted Neuro General: patient oriented x3 Medications Administered Discontinued Medications Generic Name Dose Route Start Last Admin Trade Name Freq PRN Reason Stop Dose Admin Furosemide 40 mg 10/22/22 14:05 10/22/22 14:39 Furosemide 40 Mg/4 Ml Vial IVPUSH 10/22/22 14:06 40 mg STAT STA Administration Protocol Medical Decision Making [facility] Narrative Medical decision making narrative: The pt is an 82 yo female assigned at w/ 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 On physical exam, she did not have any evidence of JVD or pedal edema bilaterally. She had a normal S1 and S2 on cardiac auscultation w/o murmurs, rubs, or gallops. She had mildly decreased breath sounds to left lower lung base on auscultation. Her work-up was significant for a chest x-ray showing evidence of mild CHF and small bilat pleural effusions, a BNP elevated to 1073, initial trop of 22.5 with a repeat of 25.9. She was given a dose of 40 mg of IV furosemide while in the department. Spoke to the hospitalist team who agreed to hospital admission. Patient verbalized agreement and understanding with this treatment plan and admission. Differential Diagnosis Differential Diagnosis: CHF Medical Records Medical records reviewed: Yes I reviewed the patient's medical records. Lab Data Lab results reviewed: Yes I reviewed the patient's lab results. Result diagrams: 10/22/22 13:13 10/22/22 13:13 Labs: Lab Results 10/22/22 10/22/22 10/22/22 Range/Units 13:03 13:12 13:13 WBC (4.8-10.8) X10*3/uL RBC (4.20-5.50) X10*6/uL Hgb (12.0-16.0) g/dl Hct (37.0-47.0) % MCV (80.0-98.0) fL MCH (27.0-33.0) pg MCHC (31.0-35.0) g/dl RDW (11.0-16.0) % Plt Count (160-400) X10*3/uL MPV (9.4-12.3) fL Immature Gran % (Auto) (0.0-0.4) % Neut % (Auto) (45-73) % Lymph % (Auto) (20-40) % Stark % (Auto) (2-11) % Eos % (Auto) (0-4) % Baso % (Auto) (0-2) % Lymph # (Auto) (1.2-4.9) X10*3/uL Stark # (Auto) (0.1-1.2) X10*3/uL Eos # (Auto) (0.0-0.4) X10*3/uL Baso # (Auto) (0.0-0.2) X10*3/uL Abs Immat Gran (auto) (0.00-0.03) X10*3/uL Absolute Neuts (auto) (2.0-8.3) x10*3/uL Absolute Nucleated RBC (0.0-0.012) X10*3/uL Nucleated RBC % (auto) (0.0-0.2) /100WBC VBG pH (7.32-7.43) VBG pCO2 mmHg VBG pO2 mmHg VBG HCO3 (22-26) mmol/L VBG O2 Saturation % VBG Base Excess mmol/L Sodium (135-145) mmol/L Potassium (3.3-5.1) mmol/L Chloride (96-108) mmol/L Carbon Dioxide (22-29) mmol/L Anion Gap (12-20) BUN (9-16) mg/dL Creatinine (0.5-1.4) mg/dL Estim Creat Clear Calc Estimated GFR Random Glucose (60-115) mg/dL Calcium (8.4-10.2) mg/dL Magnesium (1.6-2.6) mg/dL Total Bilirubin (0.0-1.0) mg/dL AST (5-31) U/L ALT (0-31) U/L Alkaline Phosphatase (39-117) U/L Troponin I High Sens 22.5 H (<3.5-17.0) ng/L B-Natriuretic Peptide 1073 H (<100) pg/mL Total Protein (6.5-8.0) g/dL Albumin (3.5-5.0) g/dL Urine Color Urine Appearance Urine pH (5.0-9.0) Ur Specific [place] (1.005-1.025) Urine Protein (Neg-Trace) mg/dL Urine Glucose (UA) (Negative) mg/dL Urine Ketones (Negative) mg/dL Urine Blood (Negative) Urine Nitrite (Negative) Ur Leukocyte Esterase (Negative) Urine RBC (0-2) /HPF Urine WBC (0-5) /HPF Ur Squamous Epith Cells (0-2) /HPF Urine Bacteria (None Seen) Hyaline Casts (0-2) /LPF Influenza Type A (PCR) NEGATIVE (Negative) Influenza Type B (PCR) NEGATIVE (Negative) RSV RNA Qual (PCR) NEGATIVE (Negative) SARS-CoV-2 RNA (RT-PCR) NEGATIVE (Negative) 10/22/22 10/22/22 10/22/22 Range/Units 13:13 13:13 13:18 WBC 7.7 (4.8-10.8) X10*3/uL RBC 3.95 L (4.20-5.50) X10*6/uL Hgb 11.3 L (12.0-16.0) g/dl Hct 34.9 L (37.0-47.0) % MCV 88.4 (80.0-98.0) fL MCH 28.6 (27.0-33.0) pg MCHC 32.4 (31.0-35.0) g/dl RDW 14.7 (11.0-16.0) % Plt Count 227 (160-400) X10*3/uL MPV 9.3 L (9.4-12.3) fL Immature Gran % (Auto) 0.3 (0.0-0.4) % Neut % (Auto) 74.1 H (45-73) % Lymph % (Auto) 13.8 L (20-40) % Stark % (Auto) 6.4 (2-11) % Eos % (Auto) 4.7 H (0-4) % Baso % (Auto) 0.7 (0-2) % Lymph # (Auto) 1.1 L (1.2-4.9) X10*3/uL Stark # (Auto) 0.5 (0.1-1.2) X10*3/uL Eos # (Auto) 0.4 (0.0-0.4) X10*3/uL Baso # (Auto) 0.1 (0.0-0.2) X10*3/uL Abs Immat Gran (auto) 0.02 (0.00-0.03) X10*3/uL Absolute Neuts (auto) 5.7 (2.0-8.3) x10*3/uL Absolute Nucleated RBC 0.000 (0.0-0.012) X10*3/uL Nucleated RBC % (auto) 0.0 (0.0-0.2) /100WBC VBG pH 7.44 H (7.32-7.43) VBG pCO2 35 mmHg VBG pO2 39 mmHg VBG HCO3 24 (22-26) mmol/L VBG O2 Saturation 60.0 % VBG Base Excess 0.7 mmol/L Sodium 137 (135-145) mmol/L Potassium 4.0 (3.3-5.1) mmol/L Chloride 102 (96-108) mmol/L Carbon Dioxide 26 (22-29) mmol/L Anion Gap 13 (12-20) BUN 14 (9-16) mg/dL Creatinine 1.18 (0.5-1.4) mg/dL Estim Creat Clear Calc 36.5 Estimated GFR 44 Random Glucose 114 (60-115) mg/dL Calcium 8.7 D (8.4-10.2) mg/dL Magnesium 2.1 (1.6-2.6) mg/dL Total Bilirubin 0.8 (0.0-1.0) mg/dL AST 21 (5-31) U/L ALT 19 (0-31) U/L Alkaline Phosphatase 132 H (39-117) U/L Troponin I High Sens (<3.5-17.0) ng/L B-Natriuretic Peptide (<100) pg/mL Total Protein 6.8 (6.5-8.0) g/dL Albumin 3.4 L (3.5-5.0) g/dL Urine Color Urine Appearance Urine pH (5.0-9.0) Ur Specific [place] (1.005-1.025) Urine Protein (Neg-Trace) mg/dL Urine Glucose (UA) (Negative) mg/dL Urine Ketones (Negative) mg/dL Urine Blood (Negative) Urine Nitrite (Negative) Ur Leukocyte Esterase (Negative) Urine RBC (0-2) /HPF Urine WBC (0-5) /HPF Ur Squamous Epith Cells (0-2) /HPF Urine Bacteria (None Seen) Hyaline Casts (0-2) /LPF Influenza Type A (PCR) (Negative) Influenza Type B (PCR) (Negative) RSV RNA Qual (PCR) (Negative) SARS-CoV-2 RNA (RT-PCR) (Negative) 10/22/22 10/22/22 Range/Units 13:42 15:39 WBC (4.8-10.8) X10*3/uL RBC (4.20-5.50) X10*6/uL Hgb (12.0-16.0) g/dl Hct (37.0-47.0) % MCV (80.0-98.0) fL MCH (27.0-33.0) pg MCHC (31.0-35.0) g/dl RDW (11.0-16.0) % Plt Count (160-400) X10*3/uL MPV (9.4-12.3) fL Immature Gran % (Auto) (0.0-0.4) % Neut % (Auto) (45-73) % Lymph % (Auto) (20-40) % Stark % (Auto) (2-11) % Eos % (Auto) (0-4) % Baso % (Auto) (0-2) % Lymph # (Auto) (1.2-4.9) X10*3/uL Stark # (Auto) (0.1-1.2) X10*3/uL Eos # (Auto) (0.0-0.4) X10*3/uL Baso # (Auto) (0.0-0.2) X10*3/uL Abs Immat Gran (auto) (0.00-0.03) X10*3/uL Absolute Neuts (auto) (2.0-8.3) x10*3/uL Absolute Nucleated RBC (0.0-0.012) X10*3/uL Nucleated RBC % (auto) (0.0-0.2) /100WBC VBG pH (7.32-7.43) VBG pCO2 mmHg VBG pO2 mmHg VBG HCO3 (22-26) mmol/L VBG O2 Saturation % VBG Base Excess mmol/L Sodium (135-145) mmol/L Potassium (3.3-5.1) mmol/L Chloride (96-108) mmol/L Carbon Dioxide (22-29) mmol/L Anion Gap (12-20) BUN (9-16) mg/dL Creatinine (0.5-1.4) mg/dL Estim Creat Clear Calc Estimated GFR Random Glucose (60-115) mg/dL Calcium (8.4-10.2) mg/dL Magnesium (1.6-2.6) mg/dL Total Bilirubin (0.0-1.0) mg/dL AST (5-31) U/L ALT (0-31) U/L Alkaline Phosphatase (39-117) U/L Troponin I High Sens 25.9 H (<3.5-17.0) ng/L B-Natriuretic Peptide (<100) pg/mL Total Protein (6.5-8.0) g/dL Albumin (3.5-5.0) g/dL Urine Color Yellow Urine Appearance Clear Urine pH 7.0 (5.0-9.0) Ur Specific [place] 1.010 (1.005-1.025) Urine Protein Negative (Neg-Trace) mg/dL Urine Glucose (UA) Negative (Negative) mg/dL Urine Ketones Negative (Negative) mg/dL Urine Blood Trace H (Negative) Urine Nitrite Negative (Negative) Ur Leukocyte Esterase Moderate (2+) H (Negative) Urine RBC 0-2 (0-2) /HPF Urine WBC 11-20 H (0-5) /HPF Ur Squamous Epith Cells 0-2 (0-2) /HPF Urine Bacteria 4+ (None Seen) Hyaline Casts 0-2 (0-2) /LPF Influenza Type A (PCR) (Negative) Influenza Type B (PCR) (Negative) RSV RNA Qual (PCR) (Negative) SARS-CoV-2 RNA (RT-PCR) (Negative) Imaging Data Chest x-ray: Attestation: I personally reviewed and interpreted this imaging study as follows: My impression: Evidence of mild CHF exacerbation. Radiologist's impression: EXAMINATION: XR CHEST CLINICAL INFORMATION: Shortness of breath. COMPARISON: 12/03/2021 chest radiographs. TECHNIQUE: 2 views of the chest were obtained. FINDINGS: There are increased pulmonary vascular markings. Minimal blunting of the costophrenic angles and sulci. The heart is mildly enlarged. Atrial appendage clip is noted in place. Multilevel sternotomy wires are intact. The mediastinal structures are unremarkable. There is a large hiatal hernia. XR/XR chest 2V IMPRESSION: 1.? Mild CHF and small bilateral pleural effusions. 2.? Large hiatal hernia. Dictated By: Juliocesar Gibbs MD Signed By: Electronically signed by Juliocesar Gibbs MD in [place] 10/22/22 1420 ECG Data Attestation: I personally reviewed and interpreted this ECG as follows: Prior ECG tracings: available for review Interpretation: Vent. Rate: 094 BPM ? ? Atrial Rate: 000 BPM P-R Int: 000 ms? QRS Dur: 122 ms QT Int: 430 ms ? ? ? P-R-T Axes: 000 -27 126 degrees QTc Int: 537 ms ? Atrial fibrillation Left bundle branch block Abnormal ECG When compared with ECG of 03-DEC-2021 12:16, Left bundle branch block is now Present Criteria for Anteroseptal infarct are no longer Present Criteria for Inferior infarct are no longer Present Critical Care Time Critical Care Time Critical Care Time: Yes Total Critical Care Time: 30 Attestation: I spent 30 minutes of Critical Care Time with this patient. This does not include time spent on separately reported billable procedures. Discharge Plan Discharge Clinical Impression: CHF (congestive heart failure) Patient Disposition: Admitted As Inpatient
--- NOTE | 2022-10-22 12:52 | ECG_ITS ---
Test Reason : SOB Blood Pressure : / mmHG Vent. Rate : 094 BPM Atrial Rate : 000 BPM P-R Int : 000 ms QRS Dur : 122 ms QT Int : 430 ms P-R-T Axes : 000 -27 126 degrees QTc Int : 537 ms Atrial fibrillation Left bundle branch block Abnormal ECG When compared with ECG of 03-DEC-2021 12:16, Left bundle branch block is now Present Criteria for Anteroseptal infarct are no longer Present Criteria for Inferior infarct are no longer Present Referred By: Mami Luna Electronically Signed By:
[2022-10-22 13:20] LABS: MANUAL DIFF FLAG NO
[2022-10-22 13:21] LABS: Basophils Absolute Auto 0.1 X10*3/uL (0.0-0.2); Basophils Percent Auto 0.7 % (0-2); Eosinophils Absolute Auto 0.4 X10*3/uL (0.0-0.4); Eosinophils Percent Auto 4.7 % (0-4); Hematocrit 34.9 % (37.0-47.0); Hemoglobin 11.3 g/dl (12.0-16.0); Imm Gran Abs Auto 0.02 X10*3/uL (0.00-0.03); Imm Gran Pct Auto 0.3 % (0.0-0.4); Lymphocytes Absolute Auto 1.1 X10*3/uL (1.2-4.9); Lymphocytes Percent Auto 13.8 % (20-40); Mean Corpuscular HGB Conc 32.4 g/dl (31.0-35.0); Mean Corpuscular Hemoglobin 28.6 pg (27.0-33.0); Mean Corpuscular Volume 88.4 fL (80.0-98.0); Mean Platelet Volume 9.3 fL (9.4-12.3); Monocytes Absolute Auto 0.5 X10*3/uL (0.1-1.2); Monocytes Percent Auto 6.4 % (2-11); Neutrophils Absolute Auto 5.7 x10*3/uL (2.0-8.3); Neutrophils Percent Auto 74.1 % (45-73); Platelet Count 227 X10*3/uL (160-400); Red Blood Count 3.95 X10*6/uL (4.20-5.50); Red Cell Distribution Width 14.7 % (11.0-16.0); White Blood Count 7.7 X10*3/uL (4.8-10.8)
[2022-10-22 13:23] LABS: Venous Blood Gas Refer to POC result
[2022-10-22 13:23] LABS: VBG Base Excess 0.7 mmol/L; VBG HCO3 24 mmol/L (22-26); VBG pCO2 35 mmHg; VBG pH 7.44 (7.32-7.43); VBG pO2 39 mmHg
[2022-10-22 13:45] LABS: Alanine Aminotransferase 19 U/L (0-31); Albumin Level 3.4 g/dL (3.5-5.0); Alkaline Phosphatase 132 U/L (39-117); Anion Gap 13 (12-20); Aspartate Amino Transferase 21 U/L (5-31); Bilirubin Total 0.8 mg/dL (0.0-1.0); Blood Urea Nitrogen 14 mg/dL (9-16); Calcium 8.7 mg/dL (8.4-10.2); Carbon Dioxide 26 mmol/L (22-29); Chloride 102 mmol/L (96-108); Creatinine Clr Calc Pharmacy 36.5; Estimated Glomerular Filt Rate 44; Glucose Random 114 mg/dL (60-115); Magnesium 2.1 mg/dL (1.6-2.6); Sodium 137 mmol/L (135-145); Total Protein 6.8 g/dL (6.5-8.0)
[2022-10-22 13:50] LABS: Troponin-I High Sensitivity 22.5 ng/L (<3.5-17.0)
[2022-10-22 13:50] LABS: B Type Natriuretic Peptide 1073 pg/mL (<100)
[2022-10-22 13:51] LABS: Appearance Urine Clear; Color Urine Yellow; Glucose Urine UA Negative (Negative); Leukocyte Esterase Urine Moderate (2+) (Negative); Nitrite Urine Negative (Negative); UMIC TRIGGER UACC YES; Urine Blood Trace (Negative); Urine Ketones Negative (Negative); Urine Protein Negative (Neg-Trace)
[2022-10-22 13:56] LABS: Bacteria Urine 4+ (None Seen); Hyaline Casts Urine 0-2 /LPF (0-2); RBC Urine 0-2 /HPF (0-2); Squamous Epithelial Cell Urine 0-2 /HPF (0-2); UACC Culture Trigger YES
[2022-10-22 13:59] LABS: Influenza A PCR NEGATIVE (Negative); Influenza B PCR NEGATIVE (Negative); Resp Syncy Virus RNA Qual PCR NEGATIVE (Negative); SARS COV2 PCR INHOUSE NEGATIVE (Negative)
[2022-10-22 14:34] VITALS: BP 148/71; PULSE 93; RESP 21; O2SAT 93
[2022-10-22] MEDS: Furosemide 40 MG/4 ML VIAL IVPUSH ×2 (14:39→19:51)
[2022-10-22 16:11] LABS: Troponin-I High Sensitivity 25.9 ng/L (<3.5-17.0)
--- NOTE | 2022-10-22 17:08 | PHA.MEDREC ---
Pharmacy Consult ? Medication Reconciliation Pharmacy has completed the medication reconciliation. Patient has memory issues. Is not sure if she is on lisinopril. Endorses she stopped both water pills . She is not sure if she should be on atorvastatin. She has not filled it recently [facility]
[2022-10-22 18:36] VITALS: BP 120/41; PULSE 91; RESP 19; O2SAT 94
--- NOTE | 2022-10-22 18:49 | PM.IMHP ---
History of Present Illness Date of Service: 10/22/22 Chief Complaint: SOB 82 yo female assigned at w/ PMHx signficiant for CHF, hypertension, hyperlipidemia, and double bypass cardiac surgery presenting w/ a one day of worsening SOB. She describes her symptoms as difficulty getting enough air. She states that her symptoms began spontaneously and denies any exacerbating or alleviating factors. She reports that her symptoms are constant and unchanging since onset. She denies any recent hx of fever or known sick contacts. She endorses a 3-day hx of a non-productive cough. She states this is similar to her past admission for congestive heart failure Review of Systems Review of Systems: Denies chest pain Admit shortness of breath with minimal exertion Denies nausea vomiting diarrhea Denies fever chills [facility] Medical History 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 Chronic heart failure with preserved ejection fraction Cognitive impairment Colitis Coronary artery disease of bypass graft of [place] heart with stable angina pectoris Essential hypertension Hypercholesterolemia Peripheral vascular disease Persistent atrial fibrillation Subclavian artery stenosis, left Family History Father No problems noted. Mother No problems noted. Surgical History History of coronary artery bypass graft (~06/2020) Status post aorto-coronary artery bypass graft Social History Household Members: Family Housing: House Do you presently have visiting nurse or other home services: No Alcohol intake: never Patient Tobacco Use Status: Former Tobacco user Tobacco use type: Cigarette Smoked in Last 30 Days: No e-Cigarette/Vaping Use: Never Used Second Hand Smoke Exposure: No Use of substances other than those prescribed or required for medical reasons: No Advance Directives: No service: No Current occupational status: retired Cognitive needs: Yes Hearing needs: No Vision needs: Yes Meds Allergies Allergy/AdvReac Type Severity Reaction Status Date / Time latex Allergy Mild rash Verified 09/30/22 15:15 simvastatin [Simvastatin] Allergy Mild NAUSEA Verified 09/30/22 15:15 Active Medications: Current Medications Acetaminophen (Acetaminophen 325 Mg Tablet) 650 mg PO Q6H PRN PRN Reason: Pain, Mild (Pain Scale 1-3) Apixaban (Apixaban 5 Mg Tablet) 5 mg PO BID [facility] Atorvastatin Calcium (Atorvastatin Calcium 40 Mg Tablet) 40 mg PO BEDTIME KARLIE Calcium Carbonate (Calcium Carbonate 500 Mg Tablet) 500 mg PO BID [facility] Furosemide (Furosemide 40 Mg/4 Ml Vial) 40 mg IVPUSH BID ONE; Protocol Stop: 10/22/22 18:45 Magnesium Hydroxide (Milk Of Magnesia 30 Ml Oral.Susp) 30 ml PO DAILY PRN PRN Reason: Constipation Magnesium Oxide (Magnesium Oxide 400 Mg Tablet) 400 mg PO DAILY [facility] Metoprolol Tartrate (Metoprolol Tartrate 25 Mg Tablet) 25 mg PO BID KARLIE; Protocol Multivitamins/Vitamin C (Multivitamin Tablet) 1 tab PO DAILY [facility] Omeprazole (Omeprazole 20 Mg Capsule.Dr) 20 mg PO BID [facility] Ondansetron HCl (Ondansetron Hcl 4 Mg/2 Ml Vial) 4 mg IVPUSH Q8H PRN PRN Reason: Nausea and Vomiting Pharmacy Consult (Consult Rx Perform Med Rec) 1 each MISCELLANE ONCE PRN PRN Reason: Consult order Sodium Chloride (0.9 % Sodium Chloride Flush 3 Ml Syringe) 3 ml IVFLUSH QSHIFT [facility] Home Medications Medication Instructions Recorded Confirmed Last Taken Type multivitamin 1 tab PO DAILY 09/04/20 10/22/22 12/03/21 History atorvastatin 40 mg tablet 40 mg PO BEDTIME 12/03/21 10/22/22 12/02/21 History calcium carbonate 500 mg calcium 500 mg PO BID 12/03/21 10/22/22 12/03/21 History (1,250 mg) tablet magnesium oxide 400 mg PO DAILY 12/03/21 10/22/22 12/03/21 History Physical Exam Vital Signs and Narrative: Vital Signs: Last Vital Signs Temp 97.2 F 10/22/22 12:25 Pulse 91 10/22/22 18:36 Resp 19 10/22/22 18:36 BP 120/41 L 10/22/22 18:36 Pulse Ox 94 10/22/22 18:36 O2 Del Method 10/22/22 18:36 BMI result Body Mass Index 27.4 Const: Other: Awake alert oriented x3. Able to speak in full sentences. Comfortable at 30 degrees Neck: Other: JVD noted to angle of mandible Resp: Other: Bilateral basilar crackles otherwise clear Cardio: Other: Irregularly irregular; no S4; positive S1-S2; no S3 murmurs rubs or gallops GI: Other: Soft nontender nondistended normoactive bowel sounds Extrem: Other: No edema bilaterally Results Labs CBC and Chem 7: 10/22/22 13:13 10/22/22 13:13 Labs: Laboratory Results - last 24 hr 10/22/22 10/22/22 10/22/22 13:03 13:12 13:13 MCV MCH MCHC RDW Plt Count MPV Immature Gran % (Auto) Neut % (Auto) Lymph % (Auto) [place] % (Auto) Eos % (Auto) Baso % (Auto) Lymph # (Auto) [place] # (Auto) Eos # (Auto) Baso # (Auto) Abs Immat Gran (auto) Absolute Neuts (auto) Absolute Nucleated RBC Nucleated RBC % (auto) VBG pH VBG pCO2 VBG pO2 VBG HCO3 VBG O2 Saturation VBG Base Excess Anion Gap Estim Creat Clear Calc Estimated GFR Random Glucose Calcium Magnesium Total Bilirubin AST ALT Alkaline Phosphatase Troponin I High Sens 22.5 H B-Natriuretic Peptide 1073 H Total Protein Albumin Urine Color Urine Appearance Urine pH Ur Specific [place] Urine Protein Urine Glucose (UA) Urine Ketones Urine Blood Urine Nitrite Ur Leukocyte Esterase Urine RBC Urine WBC Ur Squamous Epith Cells Urine Bacteria Hyaline Casts Influenza Type A (PCR) NEGATIVE Influenza Type B (PCR) NEGATIVE RSV RNA Qual (PCR) NEGATIVE SARS-CoV-2 RNA (RT-PCR) NEGATIVE 10/22/22 10/22/22 10/22/22 13:13 13:13 13:18 MCV 88.4 MCH 28.6 MCHC 32.4 RDW 14.7 Plt Count 227 MPV 9.3 L Immature Gran % (Auto) 0.3 Neut % (Auto) 74.1 H Lymph % (Auto) 13.8 L [place] % (Auto) 6.4 Eos % (Auto) 4.7 H Baso % (Auto) 0.7 Lymph # (Auto) 1.1 L [place] # (Auto) 0.5 Eos # (Auto) 0.4 Baso # (Auto) 0.1 Abs Immat Gran (auto) 0.02 Absolute Neuts (auto) 5.7 Absolute Nucleated RBC 0.000 Nucleated RBC % (auto) 0.0 VBG pH 7.44 H VBG pCO2 35 VBG pO2 39 VBG HCO3 24 VBG O2 Saturation 60.0 VBG Base Excess 0.7 Anion Gap 13 Estim Creat Clear Calc 36.5 Estimated GFR 44 Random Glucose 114 Calcium 8.7 D Magnesium 2.1 Total Bilirubin 0.8 AST 21 ALT 19 Alkaline Phosphatase 132 H Troponin I High Sens B-Natriuretic Peptide Total Protein 6.8 Albumin 3.4 L Urine Color Urine Appearance Urine pH Ur Specific [place] Urine Protein Urine Glucose (UA) Urine Ketones Urine Blood Urine Nitrite Ur Leukocyte Esterase Urine RBC Urine WBC Ur Squamous Epith Cells Urine Bacteria Hyaline Casts Influenza Type A (PCR) Influenza Type B (PCR) RSV RNA Qual (PCR) SARS-CoV-2 RNA (RT-PCR) 10/22/22 10/22/22 13:42 15:39 MCV MCH MCHC RDW Plt Count MPV Immature Gran % (Auto) Neut % (Auto) Lymph % (Auto) [place] % (Auto) Eos % (Auto) Baso % (Auto) Lymph # (Auto) [place] # (Auto) Eos # (Auto) Baso # (Auto) Abs Immat Gran (auto) Absolute Neuts (auto) Absolute Nucleated RBC Nucleated RBC % (auto) VBG pH VBG pCO2 VBG pO2 VBG HCO3 VBG O2 Saturation VBG Base Excess Anion Gap Estim Creat Clear Calc Estimated GFR Random Glucose Calcium Magnesium Total Bilirubin AST ALT Alkaline Phosphatase Troponin I High Sens 25.9 H B-Natriuretic Peptide Total Protein Albumin Urine Color Yellow Urine Appearance Clear Urine pH 7.0 Ur Specific [place] 1.010 Urine Protein Negative Urine Glucose (UA) Negative Urine Ketones Negative Urine Blood Trace H Urine Nitrite Negative Ur Leukocyte Esterase Moderate (2+) H Urine RBC 0-2 Urine WBC 11-20 H Ur Squamous Epith Cells 0-2 Urine Bacteria 4+ Hyaline Casts 0-2 Influenza Type A (PCR) Influenza Type B (PCR) RSV RNA Qual (PCR) SARS-CoV-2 RNA (RT-PCR) Imaging Radiologist's Impressions: Impressions Chest X-Ray 10/22/22 13:52 IMPRESSION: 1. Mild CHF and small bilateral pleural effusions. 2. Large hiatal hernia. Assessment and Plan (1) Acute diastolic heart failure: Status: Acute (2) Persistent atrial fibrillation: Status: Acute (3) Atherosclerotic cardiovascular disease: Status: Acute (4) Essential hypertension: Status: Acute Plan 82-year-old female with a history of diastolic heart failure in the backdrop of atrial fibrillation presents with progressive shortness of breath over the last several days similar to her past presentation per her account. In the emergency room, found to be mildly short of breath with O2 requirement and a BNP greater than 1000. Monitor demonstrating AFib with a acceptable rate control 1. Acute diastolic heart failure -continue IV Lasix 40 mg b.i.d. -follow renals/divalents -titrate O2 to maintain sats greater than equal to 92% -cardiology consult in a.m. 2. Persistent atrial fibrillation -acceptable rate control -continue metoprolol and outpatient dosing.. . Adjust as indicated -continue apixaban 3. Atherosclerotic cardiovascular disease -continue statin/metoprolol 4. Hypertension -acceptable control on metoprolol alone -adjust as indicated Apixaban Full Code Patient will require an inpatient stay of at least 2 midnights going forward to treat acute diastolic heart failure with IV diuresis. This cannot be achieved and a lesser acute setting Quality Stroke Does the patient have a stroke diagnosis?: No VTE Prior VTE?: No VTE Risk Level:: Medical - moderate - high VTE Device Contraindication: Treatment Not Indicated VTE Drug Contraindication: N/A - Med Ordered
[2022-10-22 20:30] VITALS: BP 132/70; PULSE 96; RESP 18; TEMP 36.2; O2SAT 93
[2022-10-22] MEDS: Atorvastatin Calcium 40 MG TABLET PO (21:44)
[2022-10-22] MEDS: Metoprolol Tartrate 25 MG TABLET PO (21:44)
[2022-10-22] MEDS: Apixaban 5 MG TABLET PO (21:44)
[2022-10-22 22:02] VITALS: BMI 27.4
[2022-10-23] VITALS (7 sets, daily range): BP systolic 118–134; BP diastolic 56–73; PULSE 76–97; RESP 16–20; TEMP 35.7–36.8; O2SAT 94–97
[2022-10-23] MEDS: Omeprazole 20 MG CAPSULE.DR PO ×2 (06:20→16:30)
[2022-10-23 06:48] LABS: MANUAL DIFF FLAG NO
[2022-10-23 06:56] LABS: Basophils Absolute Auto 0.1 X10*3/uL (0.0-0.2); Basophils Percent Auto 0.7 % (0-2); Eosinophils Absolute Auto 0.5 X10*3/uL (0.0-0.4); Eosinophils Percent Auto 5.1 % (0-4); Hematocrit 34.2 % (37.0-47.0); Hemoglobin 11.3 g/dl (12.0-16.0); Imm Gran Abs Auto 0.03 X10*3/uL (0.00-0.03); Imm Gran Pct Auto 0.3 % (0.0-0.4); Lymphocytes Absolute Auto 1.3 X10*3/uL (1.2-4.9); Lymphocytes Percent Auto 14.5 % (20-40); Mean Corpuscular Hemoglobin 28.8 pg (27.0-33.0); Mean Platelet Volume 9.8 fL (9.4-12.3); Monocytes Absolute Auto 0.5 X10*3/uL (0.1-1.2); Monocytes Percent Auto 5.9 % (2-11); Neutrophils Absolute Auto 6.4 x10*3/uL (2.0-8.3); Neutrophils Percent Auto 73.5 % (45-73); Platelet Count 263 X10*3/uL (160-400); Red Blood Count 3.93 X10*6/uL (4.20-5.50); Red Cell Distribution Width 14.7 % (11.0-16.0); White Blood Count 8.8 X10*3/uL (4.8-10.8)
[2022-10-23 07:34] LABS: Troponin-I High Sensitivity 36.1 ng/L (<3.5-17.0)
[2022-10-23 07:38] LABS: Alanine Aminotransferase 17 U/L (0-31); Albumin Level 3.5 g/dL (3.5-5.0); Alkaline Phosphatase 126 U/L (39-117); Anion Gap 16 (12-20); Aspartate Amino Transferase 18 U/L (5-31); Bilirubin Total 1.3 mg/dL (0.0-1.0); Blood Urea Nitrogen 21 mg/dL (9-16); Calcium 8.8 mg/dL (8.4-10.2); Carbon Dioxide 26 mmol/L (22-29); Chloride 99 mmol/L (96-108); Creatinine Clr Calc Pharmacy 32.8; Estimated Glomerular Filt Rate 39; Glucose Fasting 100 mg/dL (60-99); Potassium 3.4 mmol/L (3.3-5.1); Sodium 138 mmol/L (135-145); Total Protein 6.9 g/dL (6.5-8.0)
--- NOTE | 2022-10-23 08:12 | MHC.CM.PN ---
CM met with Patient at bedside and addressed IMM with her, providing her with the original and placing a copy on the chart. Patient lives in a house with her Son and she required no services [employer]. Patient mostly furniture walks and she also uses a cane at times. Home/self care is the goal and CM has initiated and will follow for dc planning. Patient has received Moderna/Covid vax X1 and her PCP is Dr. Pineda Po.
[2022-10-23] MEDS: 0.9 % Sodium Chloride Flush 3 ML SYRINGE IVFLUSH ×3 (08:38→22:45)
[2022-10-23] MEDS: Multivitamin TABLET 1 TAB PO (08:38)
[2022-10-23] MEDS: Magnesium Oxide 400 MG TABLET PO (08:38)
[2022-10-23] MEDS: Apixaban 5 MG TABLET PO ×2 (08:38→21:26)
[2022-10-23] MEDS: Metoprolol Tartrate 25 MG TABLET PO ×2 (08:38→21:26)
[2022-10-23 11:03] LABS: B Type Natriuretic Peptide 1290 pg/mL (<100)
--- NOTE | 2022-10-23 11:34 | P.PNIM_ITS ---
Subjective Subjective Date of Service: 10/23/22 Interval History: Feels somewhat better today breathing improved. Still weak Review of Systems Denies chest pain Admit shortness of breath with minimal exertion Denies nausea vomiting diarrhea Denies fever chills Physical Exam Vital Signs: Vital Signs: Last Vital Signs Temp 97.8 F 10/23/22 11:19 Pulse 86 10/23/22 11:19 Resp 20 10/23/22 11:19 BP 134/73 10/23/22 11:19 Pulse Ox 96 10/23/22 11:19 O2 Del Method 10/23/22 11:19 BMI result Body Mass Index 27.4 Const: Other: Awake alert oriented x3. Able to speak in full sentences. Comfortable at 30 degrees Neck: Other: JVD noted to angle of mandible Resp: Other: Bilateral basilar crackles otherwise clear Cardio: Other: Irregularly irregular; no S4; positive S1-S2; no S3 murmurs rubs or gallops GI: Other: Soft nontender nondistended normoactive bowel sounds Extrem: Other: No edema bilaterally Objective Data Active Medications Acetaminophen (Acetaminophen 325 Mg Tablet) 650 mg PO Q6H PRN PRN Reason: Pain, Mild (Pain Scale 1-3) Apixaban (Apixaban 5 Mg Tablet) 5 mg PO BID [facility] Last Admin: 10/23/22 08:38 Dose: 5 mg Documented By: FRAN Atorvastatin Calcium (Atorvastatin Calcium 40 Mg Tablet) 40 mg PO BEDTIME [facility] Last Admin: 10/22/22 21:44 Dose: 40 mg Documented By: NU Calcium Carbonate (Calcium Carbonate 500 Mg Tablet) 500 mg PO BID [facility] Last Admin: 10/23/22 08:38 Dose: 500 mg Documented By: FRAN Magnesium Hydroxide (Milk Of Magnesia 30 Ml Oral.Susp) 30 ml PO DAILY PRN PRN Reason: Constipation Magnesium Oxide (Magnesium Oxide 400 Mg Tablet) 400 mg PO DAILY [facility] Last Admin: 10/23/22 08:38 Dose: 400 mg Documented By: FRAN Metoprolol Tartrate (Metoprolol Tartrate 25 Mg Tablet) 25 mg PO BID [facility]; Protocol Last Admin: 10/23/22 08:38 Dose: 25 mg Documented By: FRAN Multivitamins/Vitamin C (Multivitamin Tablet) 1 tab PO DAILY [facility] Last Admin: 10/23/22 08:38 Dose: 1 tab Documented By: FRAN Omeprazole (Omeprazole 20 Mg Capsule.Dr) 20 mg PO BID@9183,5804 [facility] Last Admin: 10/23/22 06:20 Dose: 20 mg Documented By: WARREN Ondansetron HCl (Ondansetron Hcl 4 Mg/2 Ml Vial) 4 mg IVPUSH Q8H PRN PRN Reason: Nausea and Vomiting Pharmacy Consult (Consult Rx Perform Med Rec) 1 each MISCELLANE ONCE PRN PRN Reason: Consult order Sodium Chloride (0.9 % Sodium Chloride Flush 3 Ml Syringe) 3 ml IVFLUSH QSHIFT [facility] Last Admin: 10/23/22 08:38 Dose: 3 ml Documented By: FRAN Labs CBC & Chem 7: 10/23/22 06:20 10/23/22 06:20 Labs: Laboratory Results - last 24 hr 10/22/22 10/22/22 10/22/22 13:03 13:12 13:13 MCV MCH MCHC RDW Plt Count MPV Immature Gran % (Auto) Neut % (Auto) Lymph % (Auto) [place] % (Auto) Eos % (Auto) Baso % (Auto) Lymph # (Auto) [place] # (Auto) Eos # (Auto) Baso # (Auto) Abs Immat Gran (auto) Absolute Neuts (auto) Absolute Nucleated RBC Nucleated RBC % (auto) VBG pH VBG pCO2 VBG pO2 VBG HCO3 VBG O2 Saturation VBG Base Excess Anion Gap Estim Creat Clear Calc Estimated GFR Random Glucose Fasting Glucose Calcium Magnesium Total Bilirubin AST ALT Alkaline Phosphatase Troponin I High Sens 22.5 H B-Natriuretic Peptide 1073 H Total Protein Albumin Urine Color Urine Appearance Urine pH Ur Specific [place] Urine Protein Urine Glucose (UA) Urine Ketones Urine Blood Urine Nitrite Ur Leukocyte Esterase Urine RBC Urine WBC Ur Squamous Epith Cells Urine Bacteria Hyaline Casts Influenza Type A (PCR) NEGATIVE Influenza Type B (PCR) NEGATIVE RSV RNA Qual (PCR) NEGATIVE SARS-CoV-2 RNA (RT-PCR) NEGATIVE 10/22/22 10/22/22 10/22/22 13:13 13:13 13:18 MCV 88.4 MCH 28.6 MCHC 32.4 RDW 14.7 Plt Count 227 MPV 9.3 L Immature Gran % (Auto) 0.3 Neut % (Auto) 74.1 H Lymph % (Auto) 13.8 L [place] % (Auto) 6.4 Eos % (Auto) 4.7 H Baso % (Auto) 0.7 Lymph # (Auto) 1.1 L [place] # (Auto) 0.5 Eos # (Auto) 0.4 Baso # (Auto) 0.1 Abs Immat Gran (auto) 0.02 Absolute Neuts (auto) 5.7 Absolute Nucleated RBC 0.000 Nucleated RBC % (auto) 0.0 VBG pH 7.44 H VBG pCO2 35 VBG pO2 39 VBG HCO3 24 VBG O2 Saturation 60.0 VBG Base Excess 0.7 Anion Gap 13 Estim Creat Clear Calc 36.5 Estimated GFR 44 Random Glucose 114 Fasting Glucose Calcium 8.7 D Magnesium 2.1 Total Bilirubin 0.8 AST 21 ALT 19 Alkaline Phosphatase 132 H Troponin I High Sens B-Natriuretic Peptide Total Protein 6.8 Albumin 3.4 L Urine Color Urine Appearance Urine pH Ur Specific [place] Urine Protein Urine Glucose (UA) Urine Ketones Urine Blood Urine Nitrite Ur Leukocyte Esterase Urine RBC Urine WBC Ur Squamous Epith Cells Urine Bacteria Hyaline Casts Influenza Type A (PCR) Influenza Type B (PCR) RSV RNA Qual (PCR) SARS-CoV-2 RNA (RT-PCR) 10/22/22 10/22/22 10/23/22 13:42 15:39 06:20 MCV 87.0 MCH 28.8 MCHC 33.0 RDW 14.7 Plt Count 263 MPV 9.8 Immature Gran % (Auto) 0.3 Neut % (Auto) 73.5 H Lymph % (Auto) 14.5 L [place] % (Auto) 5.9 Eos % (Auto) 5.1 H Baso % (Auto) 0.7 Lymph # (Auto) 1.3 [place] # (Auto) 0.5 Eos # (Auto) 0.5 H Baso # (Auto) 0.1 Abs Immat Gran (auto) 0.03 Absolute Neuts (auto) 6.4 Absolute Nucleated RBC 0.000 Nucleated RBC % (auto) 0.0 VBG pH VBG pCO2 VBG pO2 VBG HCO3 VBG O2 Saturation VBG Base Excess Anion Gap Estim Creat Clear Calc Estimated GFR Random Glucose Fasting Glucose Calcium Magnesium Total Bilirubin AST ALT Alkaline Phosphatase Troponin I High Sens 25.9 H B-Natriuretic Peptide Total Protein Albumin Urine Color Yellow Urine Appearance Clear Urine pH 7.0 Ur Specific [place] 1.010 Urine Protein Negative Urine Glucose (UA) Negative Urine Ketones Negative Urine Blood Trace H Urine Nitrite Negative Ur Leukocyte Esterase Moderate (2+) H Urine RBC 0-2 Urine WBC 11-20 H Ur Squamous Epith Cells 0-2 Urine Bacteria 4+ Hyaline Casts 0-2 Influenza Type A (PCR) Influenza Type B (PCR) RSV RNA Qual (PCR) SARS-CoV-2 RNA (RT-PCR) 10/23/22 10/23/22 10/23/22 06:20 06:20 06:20 MCV MCH MCHC RDW Plt Count MPV Immature Gran % (Auto) Neut % (Auto) Lymph % (Auto) [place] % (Auto) Eos % (Auto) Baso % (Auto) Lymph # (Auto) [place] # (Auto) Eos # (Auto) Baso # (Auto) Abs Immat Gran (auto) Absolute Neuts (auto) Absolute Nucleated RBC Nucleated RBC % (auto) VBG pH VBG pCO2 VBG pO2 VBG HCO3 VBG O2 Saturation VBG Base Excess Anion Gap 16 Estim Creat Clear Calc 32.8 Estimated GFR 39 Random Glucose Fasting Glucose 100 H Calcium 8.8 Magnesium Total Bilirubin 1.3 H AST 18 ALT 17 Alkaline Phosphatase 126 H Troponin I High Sens 36.1 H B-Natriuretic Peptide 1290 H Total Protein 6.9 Albumin 3.5 Urine Color Urine Appearance Urine pH Ur Specific [place] Urine Protein Urine Glucose (UA) Urine Ketones Urine Blood Urine Nitrite Ur Leukocyte Esterase Urine RBC Urine WBC Ur Squamous Epith Cells Urine Bacteria Hyaline Casts Influenza Type A (PCR) Influenza Type B (PCR) RSV RNA Qual (PCR) SARS-CoV-2 RNA (RT-PCR) Microbiology Microbiology Results: Microbiology 10/22/22 00:00 Urine Culture - Preliminary Urine clean catch - Urine major top Gram negative alley Assessment and Plan (1) Acute on chronic diastolic heart failure due to coronary artery disease: Status: Acute (2) Persistent atrial fibrillation: Status: Acute (3) Essential hypertension: Status: Acute Plan 82-year-old female with a history of diastolic heart failure in the backdrop of atrial fibrillation presents with progressive shortness of breath over the last several days similar to her past presentation per her account. In the emergency room, found to be mildly short of breath with O2 requirement and a BNP greater than 1000. Monitor demonstrating AFib with a acceptable rate control 1. Acute on chronic diastolic heart failure -continue IV Lasix 40 mg b.i.d. -follow renals/divalents -titrate O2 to maintain sats greater than equal to 92% -cardiology consult in a.m.... Discussed at length 2. Persistent atrial fibrillation -acceptable rate control -continue metoprolol and outpatient dosing.. . Adjust as indicated -continue apixaban 3. Atherosclerotic cardiovascular disease -continue statin/metoprolol 4. Hypertension -acceptable control on metoprolol alone -adjust as indicated Apixaban Full Code Will require ongoing hospitalization for IV diuresis to treat acute on chronic diastolic heart function Quality Stroke Does the patient have a stroke diagnosis?: No VTE Prior VTE?: No VTE Risk Level:: Medical - moderate - high VTE Device Contraindication: Treatment Not Indicated VTE Drug Contraindication: N/A - Med Ordered
[2022-10-23] MEDS: cefTRIAXone sodium 1 GM in 0.9 % Sodium Chloride 50 ML IV (12:14)
[2022-10-23] MEDS: Furosemide 40 MG/4 ML VIAL IVPUSH (18:00)
[2022-10-23] MEDS: Atorvastatin Calcium 40 MG TABLET PO (21:26)
[2022-10-24 03:01] VITALS: BP 90/57; PULSE 77; RESP 16; TEMP 36.3; O2SAT 96
[2022-10-24 04:14] VITALS: BP 117/56; PULSE 78; RESP 16; TEMP 36.4; O2SAT 95
[2022-10-24] MEDS: Omeprazole 20 MG CAPSULE.DR PO ×2 (05:24→16:33)
[2022-10-24 06:17] LABS: MANUAL DIFF FLAG NO
[2022-10-24 06:21] LABS: Basophils Absolute Auto 0.1 X10*3/uL (0.0-0.2); Basophils Percent Auto 0.9 % (0-2); Eosinophils Absolute Auto 0.7 X10*3/uL (0.0-0.4); Eosinophils Percent Auto 8.4 % (0-4); Hematocrit 32.9 % (37.0-47.0); Hemoglobin 10.8 g/dl (12.0-16.0); Imm Gran Abs Auto 0.02 X10*3/uL (0.00-0.03); Imm Gran Pct Auto 0.2 % (0.0-0.4); Lymphocytes Absolute Auto 1.3 X10*3/uL (1.2-4.9); Lymphocytes Percent Auto 15.7 % (20-40); Mean Corpuscular HGB Conc 32.8 g/dl (31.0-35.0); Mean Corpuscular Hemoglobin 28.8 pg (27.0-33.0); Mean Corpuscular Volume 87.7 fL (80.0-98.0); Mean Platelet Volume 9.6 fL (9.4-12.3); Monocytes Absolute Auto 0.7 X10*3/uL (0.1-1.2); Monocytes Percent Auto 8.2 % (2-11); Neutrophils Absolute Auto 5.4 x10*3/uL (2.0-8.3); Neutrophils Percent Auto 66.6 % (45-73); Platelet Count 240 X10*3/uL (160-400); Red Blood Count 3.75 X10*6/uL (4.20-5.50); Red Cell Distribution Width 14.6 % (11.0-16.0); White Blood Count 8.1 X10*3/uL (4.8-10.8)
[2022-10-24 06:35] LABS: Alanine Aminotransferase 16 U/L (0-31); Albumin Level 3.2 g/dL (3.5-5.0); Alkaline Phosphatase 113 U/L (39-117); Anion Gap 15 (12-20); Aspartate Amino Transferase 22 U/L (5-31); Bilirubin Total 0.9 mg/dL (0.0-1.0); Blood Urea Nitrogen 24 mg/dL (9-16); Calcium 8.6 mg/dL (8.4-10.2); Carbon Dioxide 26 mmol/L (22-29); Chloride 98 mmol/L (96-108); Creatinine Clr Calc Pharmacy 33.3; Estimated Glomerular Filt Rate 40; Glucose Fasting 110 mg/dL (60-99); Potassium 3.5 mmol/L (3.3-5.1); Sodium 135 mmol/L (135-145); Total Protein 6.5 g/dL (6.5-8.0)
[2022-10-24 06:40] LABS: B Type Natriuretic Peptide 852 pg/mL (<100)
[2022-10-24 07:51] VITALS: BP 131/60; PULSE 82; RESP 20; TEMP 36.8; O2SAT 97
[2022-10-24] MEDS: Apixaban 5 MG TABLET PO ×2 (09:20→19:55)
[2022-10-24] MEDS: Metoprolol Tartrate 25 MG TABLET PO ×2 (09:20→19:54)
[2022-10-24] MEDS: Furosemide 40 MG/4 ML VIAL IVPUSH ×2 (09:20→18:02)
[2022-10-24] MEDS: 0.9 % Sodium Chloride Flush 3 ML SYRINGE IVFLUSH ×3 (09:20→19:58)
[2022-10-24] MEDS: Magnesium Oxide 400 MG TABLET PO (09:20)
[2022-10-24] MEDS: Multivitamin TABLET 1 TAB PO (09:20)
--- NOTE | 2022-10-24 10:45 | PM.CNCAR ---
History of Present Illness History of Present Illness Date of Service: 10/24/22 Chief complaint: CHF Narrative: This is a cardiology consultation regarding congestive heart failure. Admitted mainly for shortness of breath. She is being treated for diastolic heart failure and states that she is feeling better already. No anginal-type chest pains. No palpitations or other complaints. Review of Systems Review of Systems: Yes all other systems are reviewed and are negative Constitutional: Constitutional: Reports as per HPI Eyes: Eyes: Reports as per HPI ENT: Reports as per HPI Cardiovascular: Cardiovascular: Reports as per HPI, Denies acrocyanosis, Denies cool extremities, Denies chest pain, Denies leg edema, Denies lightheadedness, Denies palpitations and Denies dyspnea Respiratory: Respiratory: Reports as per HPI, Reports no additional respiratory complaints and Denies dyspnea Gastrointestinal: Gastrointestinal: Reports as per HPI and Reports no additional gastrointestinal complaints Genitourinary: Genitourinary: Reports as per HPI Musculoskeletal: Musculoskeletal: Reports no additional musculoskeletal complaints and Reports as per HPI Integumentary/Breasts: Skin/Breast: Reports system reviewed and no additional complaints, except as docu Neurologic: Reports system reviewed and no additional complaints, except as documented and Reports as per HPI Psychiatric: Psychiatric: Reports no additional psychiatric complaints and Reports as per HPI Endocrine: Endocrine: Reports no additional endocrine complaints, Reports as per HPI and Denies palpitations Hematologic/Lymphatic: Hematologic/Lymphatic: Reports no additional hematologic/lymphatic complaints and Reports as per HPI Allergic/Immunologic: Allergic/Immunologic: Reports no additional allergic/immunologic complaints and Reports as per HPI [facility] Past Medical History Medical History 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 Mother No problems noted. Surgical History Surgical History History of coronary artery bypass graft (~06/2020) Status post aorto-coronary artery bypass graft Social History Social History Household Members: Family Housing: House Do you presently have visiting nurse or other home services: No Alcohol intake: never Patient Tobacco Use Status: Former Tobacco user Tobacco use type: Cigarette e-Cigarette/Vaping Use: Never Used Second Hand Smoke Exposure: No service: No Current occupational status: retired Cognitive needs: Yes Hearing needs: No Vision needs: Yes Meds Allergies Allergy/AdvReac Type Severity Reaction Status Date / Time latex Allergy Mild rash Verified 09/30/22 15:15 simvastatin [Simvastatin] Allergy Mild NAUSEA Verified 09/30/22 15:15 Active Medications: Current Medications Acetaminophen (Acetaminophen 325 Mg Tablet) 650 mg PO Q6H PRN PRN Reason: Pain, Mild (Pain Scale 1-3) Apixaban (Apixaban 5 Mg Tablet) 5 mg PO BID [facility] Last Admin: 10/24/22 09:20 Dose: 5 mg Atorvastatin Calcium (Atorvastatin Calcium 40 Mg Tablet) 40 mg PO BEDTIME [facility] Last Admin: 10/23/22 21:26 Dose: 40 mg Calcium Carbonate (Calcium Carbonate 500 Mg Tablet) 500 mg PO BID [facility] Last Admin: 10/24/22 09:20 Dose: 500 mg Furosemide (Furosemide 40 Mg/4 Ml Vial) 40 mg IVPUSH BID@0900,1800 [facility]; Protocol Last Admin: 10/24/22 09:20 Dose: 40 mg Ceftriaxone Sodium 1 gm/ (Sodium Chloride) 50 mls @ 100 mls/hr IV Q24H [facility] Last Infusion: 10/23/22 13:40 Dose: Infused Magnesium Hydroxide (Milk Of Magnesia 30 Ml Oral.Susp) 30 ml PO DAILY PRN PRN Reason: Constipation Magnesium Oxide (Magnesium Oxide 400 Mg Tablet) 400 mg PO DAILY [facility] Last Admin: 10/24/22 09:20 Dose: 400 mg Metoprolol Tartrate (Metoprolol Tartrate 25 Mg Tablet) 25 mg PO BID [facility]; Protocol Last Admin: 10/24/22 09:20 Dose: 25 mg Multivitamins/Vitamin C (Multivitamin Tablet) 1 tab PO DAILY [facility] Last Admin: 10/24/22 09:20 Dose: 1 tab Omeprazole (Omeprazole 20 Mg Capsule.Dr) 20 mg PO BID@0630,1630 [facility] Last Admin: 10/24/22 05:24 Dose: 20 mg Ondansetron HCl (Ondansetron Hcl 4 Mg/2 Ml Vial) 4 mg IVPUSH Q8H PRN PRN Reason: Nausea and Vomiting Pharmacy Consult (Consult Rx Perform Med Rec) 1 each MISCELLANE ONCE PRN PRN Reason: Consult order Sodium Chloride (0.9 % Sodium Chloride Flush 3 Ml Syringe) [address] [facility] Last Admin: 10/24/22 09:20 Dose: 3 ml Home Medications Medication Instructions Recorded Confirmed Last Taken Type multivitamin 1 tab PO DAILY 09/04/20 10/22/22 12/03/21 History atorvastatin 40 mg tablet 40 mg PO BEDTIME 12/03/21 10/22/22 12/02/21 History calcium carbonate 500 mg calcium 500 mg PO BID 12/03/21 10/22/22 12/03/21 History (1,250 mg) tablet magnesium oxide 400 mg PO DAILY 12/03/21 10/22/22 12/03/21 History Physical Exam Vital Signs: Vital Signs: Last Vital Signs Temp 98.2 F 10/24/22 07:51 Pulse 82 10/24/22 07:51 Resp 20 10/24/22 07:51 BP 131/60 10/24/22 07:51 Pulse Ox 97 10/24/22 07:51 O2 Del Method 10/24/22 07:51 BMI result Body Mass Index 27.4 Const: General: comfortable and no acute distress Orientation/consciousness: patient oriented x3 HEENT: Other: Unremarkable Head: Yes normal to inspection Neck: Neck: Yes normal visual inspection Chest: Chest palpation & inspection: normal inspection of the chest Resp: Other: Few fine basal inspiratory crackles. Cardio: Palpation: normal PMI Heart sounds: S1 normal heart sound present, S2 normal heart sound present, no gallops, no murmurs and no rubs GI: Palpation (GI): Soft to palpation Back/Spine/Pelvis: Other: unremarkable Skin: General skin exam: no rashes or lesions noted Neuro: General: patient oriented x3 Extrem: General: Yes normal to inspection Psych: Mental Status: mental status grossly normal Objective Labs and Meds Result diagrams: 10/24/22 06:05 10/24/22 06:05 Lab results: Laboratory Results - last 24 hr 10/23/22 10/24/22 10/24/22 06:20 06:05 06:05 WBC 8.1 RBC 3.75 L Hgb 10.8 L Hct 32.9 L MCV 87.7 MCH 28.8 MCHC 32.8 RDW 14.6 Plt Count 240 MPV 9.6 Immature Gran % (Auto) 0.2 Neut % (Auto) 66.6 Lymph % (Auto) 15.7 L [place] % (Auto) 8.2 Eos % (Auto) 8.4 H Baso % (Auto) 0.9 Lymph # (Auto) 1.3 [place] # (Auto) 0.7 Eos # (Auto) 0.7 H Baso # (Auto) 0.1 Abs Immat Gran (auto) 0.02 Absolute Neuts (auto) 5.4 Absolute Nucleated RBC 0.000 Nucleated RBC % (auto) 0.0 Sodium 135 Potassium 3.5 Chloride 98 Carbon Dioxide 26 Anion Gap 15 BUN 24 H Creatinine 1.29 Estim Creat Clear Calc 33.3 Estimated GFR 40 Fasting Glucose 110 H Calcium 8.6 Total Bilirubin 0.9 AST 22 ALT 16 Alkaline Phosphatase 113 B-Natriuretic Peptide 1290 H Total Protein 6.5 Albumin 3.2 L 10/24/22 06:05 WBC RBC Hgb Hct MCV MCH MCHC RDW Plt Count MPV Immature Gran % (Auto) Neut % (Auto) Lymph % (Auto) [place] % (Auto) Eos % (Auto) Baso % (Auto) Lymph # (Auto) [place] # (Auto) Eos # (Auto) Baso # (Auto) Abs Immat Gran (auto) Absolute Neuts (auto) Absolute Nucleated RBC Nucleated RBC % (auto) Sodium Potassium Chloride Carbon Dioxide Anion Gap BUN Creatinine Estim Creat Clear Calc Estimated GFR Fasting Glucose Calcium Total Bilirubin AST ALT Alkaline Phosphatase B-Natriuretic Peptide 852 H Total Protein Albumin ECG Interpretation: EKG with probable flutter at 96/Min with left bundle-branch block pattern. Assessment and Plan (1) Acute on chronic diastolic heart failure due to coronary artery disease: Status: Acute Cardiac BNP was 1073 on arrival. No 852. In the past, 603. Highest was couple years ago at 2785. IV diuretics today and consider switching to oral tomorrow based on improvement. (2) Persistent atrial fibrillation: Status: Acute Continue beta-blockers at home dose. Continue Eliquis. (3) Atherosclerotic cardiovascular disease: Status: Acute History of CABG 2019. No acute ischemic issues. (4) Essential hypertension: Status: Acute Blood pressure seems stable. Procedures Date of Service Date of Service: 10/24/22
[2022-10-24 12:00] VITALS: BP 127/58; PULSE 78; RESP 20; TEMP 36.8; O2SAT 96
[2022-10-24] MEDS: cefTRIAXone sodium 1 GM in 0.9 % Sodium Chloride 50 ML IV (12:36)
--- NOTE | 2022-10-24 14:18 | HO.PM.IMPN ---
Subjective Subjective Date of Service: 10/24/22 Interval History: Feels somewhat better today breathing improved. Review of Systems Denies chest pain Admit shortness of breath with minimal exertion Denies nausea vomiting diarrhea Denies fever chills Physical Exam Vital Signs: Vital Signs: Last Vital Signs Temp 98.2 F 10/24/22 12:00 Pulse 78 10/24/22 12:00 Resp 20 10/24/22 12:00 BP 127/58 L 10/24/22 12:00 Pulse Ox 96 10/24/22 12:00 O2 Del Method 10/24/22 12:00 BMI result Body Mass Index 27.4 Const: Other: Awake alert oriented x3. Able to speak in full sentences. Comfortable at 30 degrees Neck: Other: JVD noted to angle of mandible Resp: Other: Bilateral basilar crackles otherwise clear Cardio: Other: Irregularly irregular; no S4; positive S1-S2; no S3 murmurs rubs or gallops GI: Other: Soft nontender nondistended normoactive bowel sounds Extrem: Other: No edema bilaterally Objective Data Active Medications Acetaminophen (Acetaminophen 325 Mg Tablet) 650 mg PO Q6H PRN PRN Reason: Pain, Mild (Pain Scale 1-3) Apixaban (Apixaban 5 Mg Tablet) 5 mg PO BID [facility] Last Admin: 10/24/22 09:20 Dose: 5 mg Documented By: FRAN Atorvastatin Calcium (Atorvastatin Calcium 40 Mg Tablet) 40 mg PO BEDTIME [facility] Last Admin: 10/23/22 21:26 Dose: 40 mg Documented By: WARREN Calcium Carbonate (Calcium Carbonate 500 Mg Tablet) 500 mg PO BID [facility] Last Admin: 10/24/22 09:20 Dose: 500 mg Documented By: FRAN Furosemide (Furosemide 40 Mg/4 Ml Vial) 40 mg IVPUSH BID@0900,1800 [facility]; Protocol Last Admin: 10/24/22 09:20 Dose: 40 mg Documented By: FRAN Ceftriaxone Sodium 1 gm/ (Sodium Chloride) 50 mls @ 100 mls/hr IV Q24H [facility] Last Infusion: 10/24/22 13:57 Dose: 0 mls/hr Documented By: FRAN Magnesium Hydroxide (Milk Of Magnesia 30 Ml Oral.Susp) 30 ml PO DAILY PRN PRN Reason: Constipation Magnesium Oxide (Magnesium Oxide 400 Mg Tablet) 400 mg PO DAILY [facility] Last Admin: 10/24/22 09:20 Dose: 400 mg Documented By: FRAN Metoprolol Tartrate (Metoprolol Tartrate 25 Mg Tablet) 25 mg PO BID [facility]; Protocol Last Admin: 10/24/22 09:20 Dose: 25 mg Documented By: FRAN Multivitamins/Vitamin C (Multivitamin Tablet) 1 tab PO DAILY [facility] Last Admin: 10/24/22 09:20 Dose: 1 tab Documented By: FRAN Omeprazole (Omeprazole 20 Mg Capsule.Dr) 20 mg PO BID@0630,3740 [facility] Last Admin: 10/24/22 05:24 Dose: 20 mg Documented By: WARREN Ondansetron HCl (Ondansetron Hcl 4 Mg/2 Ml Vial) 4 mg IVPUSH Q8H PRN PRN Reason: Nausea and Vomiting Pharmacy Consult (Consult Rx Perform Med Rec) 1 each MISCELLANE ONCE PRN PRN Reason: Consult order Sodium Chloride (0.9 % Sodium Chloride Flush 3 Ml Syringe) 3 ml IVFLUSH QSHIFT [facility] Last Admin: 10/24/22 12:40 Dose: 3 ml Documented By: FRAN Labs CBC & Chem 7: 10/24/22 06:05 10/24/22 06:05 Labs: Laboratory Results - last 24 hr 10/24/22 10/24/22 10/24/22 06:05 06:05 06:05 MCV 87.7 MCH 28.8 MCHC 32.8 RDW 14.6 Plt Count 240 MPV 9.6 Immature Gran % (Auto) 0.2 Neut % (Auto) 66.6 Lymph % (Auto) 15.7 L [place] % (Auto) 8.2 Eos % (Auto) 8.4 H Baso % (Auto) 0.9 Lymph # (Auto) 1.3 [place] # (Auto) 0.7 Eos # (Auto) 0.7 H Baso # (Auto) 0.1 Abs Immat Gran (auto) 0.02 Absolute Neuts (auto) 5.4 Absolute Nucleated RBC 0.000 Nucleated RBC % (auto) 0.0 Anion Gap 15 Estim Creat Clear Calc 33.3 Estimated GFR 40 Fasting Glucose 110 H Calcium 8.6 Total Bilirubin 0.9 AST 22 ALT 16 Alkaline Phosphatase 113 B-Natriuretic Peptide 852 H Total Protein 6.5 Albumin 3.2 L Microbiology Microbiology Results: Microbiology 10/22/22 00:00 Urine Culture - Final Urine clean catch - Urine major top Escherichia coli Assessment and Plan (1) Acute on chronic diastolic heart failure due to coronary artery disease: Status: Acute (2) Persistent atrial fibrillation: Status: Acute Plan 82-year-old female with a history of diastolic heart failure in the backdrop of atrial fibrillation presents with progressive shortness of breath over the last several days similar to her past presentation per her account. In the emergency room, found to be mildly short of breath with O2 requirement and a BNP greater than 1000. Monitor demonstrating AFib with a acceptable rate control 1. Acute on chronic diastolic heart failure -continue IV Lasix 40 mg b.i.d...switch to po in am -follow renals/divalents -titrate O2 to maintain sats greater than equal to 92% 2. Persistent atrial fibrillation -acceptable rate control -continue metoprolol and outpatient dosing.. . Adjust as indicated -continue apixaban 3. Atherosclerotic cardiovascular disease -continue statin/metoprolol 4. Hypertension -acceptable control on metoprolol alone -adjust as indicated Apixaban Full Code Will require ongoing hospitalization for IV diuresis to treat acute on chronic diastolic heart function Quality Stroke Does the patient have a stroke diagnosis?: No VTE Prior VTE?: No VTE Risk Level:: Medical - moderate - high VTE Device Contraindication: Treatment Not Indicated VTE Drug Contraindication: N/A - Med Ordered
[2022-10-24 15:06] VITALS: PULSE 86; RESP 18; TEMP 36.8; O2SAT 95
[2022-10-24 18:47] VITALS: BP 132/72; PULSE 70; RESP 18; TEMP 36.3; O2SAT 98
[2022-10-24] MEDS: Atorvastatin Calcium 40 MG TABLET PO (19:54)
[2022-10-25 04:00] VITALS: BP 108/71; PULSE 68; RESP 18; TEMP 36.6; O2SAT 95
[2022-10-25 06:45] LABS: MANUAL DIFF FLAG NO
[2022-10-25 06:50] LABS: Basophils Absolute Auto 0.1 X10*3/uL (0.0-0.2); Basophils Percent Auto 0.9 % (0-2); Eosinophils Absolute Auto 0.7 X10*3/uL (0.0-0.4); Eosinophils Percent Auto 7.8 % (0-4); Hematocrit 35.7 % (37.0-47.0); Hemoglobin 11.5 g/dl (12.0-16.0); Imm Gran Abs Auto 0.02 X10*3/uL (0.00-0.03); Imm Gran Pct Auto 0.2 % (0.0-0.4); Lymphocytes Absolute Auto 1.3 X10*3/uL (1.2-4.9); Lymphocytes Percent Auto 15.6 % (20-40); Mean Corpuscular HGB Conc 32.2 g/dl (31.0-35.0); Mean Corpuscular Hemoglobin 28.6 pg (27.0-33.0); Mean Corpuscular Volume 88.8 fL (80.0-98.0); Mean Platelet Volume 9.8 fL (9.4-12.3); Monocytes Absolute Auto 0.7 X10*3/uL (0.1-1.2); Monocytes Percent Auto 8.5 % (2-11); Neutrophils Absolute Auto 5.7 x10*3/uL (2.0-8.3); Platelet Count 274 X10*3/uL (160-400); Red Blood Count 4.02 X10*6/uL (4.20-5.50); Red Cell Distribution Width 14.6 % (11.0-16.0); White Blood Count 8.6 X10*3/uL (4.8-10.8)
[2022-10-25 07:06] LABS: Alanine Aminotransferase 18 U/L (0-31); Albumin Level 3.3 g/dL (3.5-5.0); Alkaline Phosphatase 123 U/L (39-117); Anion Gap 16 (12-20); Aspartate Amino Transferase 19 U/L (5-31); Bilirubin Total 0.8 mg/dL (0.0-1.0); Blood Urea Nitrogen 25 mg/dL (9-16); Calcium 8.7 mg/dL (8.4-10.2); Carbon Dioxide 30 mmol/L (22-29); Chloride 95 mmol/L (96-108); Creatinine Clr Calc Pharmacy 35.5; Estimated Glomerular Filt Rate 43; Glucose Fasting 97 mg/dL (60-99); Potassium 3.5 mmol/L (3.3-5.1); Sodium 137 mmol/L (135-145); Total Protein 6.8 g/dL (6.5-8.0)
[2022-10-25 07:38] VITALS: BP 124/60; PULSE 73; RESP 18; TEMP 36.7; O2SAT 95
[2022-10-25] MEDS: Apixaban 5 MG TABLET PO ×2 (10:23→21:57)
[2022-10-25] MEDS: Multivitamin TABLET 1 TAB PO (10:23)
[2022-10-25] MEDS: Magnesium Oxide 400 MG TABLET PO (10:23)
[2022-10-25] MEDS: 0.9 % Sodium Chloride Flush 3 ML SYRINGE IVFLUSH ×2 (10:23→21:41)
[2022-10-25] MEDS: Metoprolol Tartrate 25 MG TABLET PO (10:23)
[2022-10-25 12:00] VITALS: BP 110/57; PULSE 86; RESP 18; TEMP 36.6; O2SAT 94
--- NOTE | 2022-10-25 14:32 | HO.PM.IMPN ---
Subjective Subjective Date of Service: 10/25/22 Interval History: Breathing improved since admit. Tolerant of diuresis Review of Systems Denies chest pain Admit shortness of breath with minimal exertion Denies nausea vomiting diarrhea Denies fever chills Physical Exam Vital Signs: Vital Signs: Last Vital Signs Temp 97.8 F 10/25/22 12:00 Pulse 86 10/25/22 12:00 Resp 18 10/25/22 12:00 BP 110/57 L 10/25/22 12:00 Pulse Ox 94 10/25/22 12:00 O2 Del Method 10/25/22 12:00 BMI result Body Mass Index 27.4 Const: Other: Awake alert oriented x3. Able to speak in full sentences. Comfortable at 30 degrees Neck: Other: JVD noted to angle of mandible Resp: Other: Bilateral basilar crackles otherwise clear Cardio: Other: Irregularly irregular; no S4; positive S1-S2; no S3 murmurs rubs or gallops GI: Other: Soft nontender nondistended normoactive bowel sounds Extrem: Other: No edema bilaterally Objective Data Active Medications Acetaminophen (Acetaminophen 325 Mg Tablet) 650 mg PO Q6H PRN PRN Reason: Pain, Mild (Pain Scale 1-3) Apixaban (Apixaban 5 Mg Tablet) 5 mg PO BID [facility] Last Admin: 10/25/22 10:23 Dose: 5 mg Documented By: BOY Atorvastatin Calcium (Atorvastatin Calcium 40 Mg Tablet) 40 mg PO BEDTIME [facility] Last Admin: 10/24/22 19:54 Dose: 40 mg Documented By: WARREN Calcium Carbonate (Calcium Carbonate 500 Mg Tablet) 500 mg PO BID [facility] Last Admin: 10/25/22 10:23 Dose: 500 mg Documented By: BOY Furosemide (Furosemide 40 Mg/4 Ml Vial) 40 mg IVPUSH BID@0900,1800 [facility]; Protocol Last Admin: 10/25/22 10:34 Dose: Not Given Documented By: BOY Non-Admin Reason: No Access Ceftriaxone Sodium 1 gm/ (Sodium Chloride) 50 mls @ 100 mls/hr IV Q24H [facility] Last Admin: 10/25/22 11:11 Dose: Not Given Documented By: BOY Non-Admin Reason: No Access Magnesium Hydroxide (Milk Of Magnesia 30 Ml Oral.Susp) 30 ml PO DAILY PRN PRN Reason: Constipation Magnesium Oxide (Magnesium Oxide 400 Mg Tablet) 400 mg PO DAILY [facility] Last Admin: 10/25/22 10:23 Dose: 400 mg Documented By: BOY Metoprolol Tartrate (Metoprolol Tartrate 25 Mg Tablet) 25 mg PO BID [facility]; Protocol Last Admin: 10/25/22 10:23 Dose: 25 mg Documented By: BOY Multivitamins/Vitamin C (Multivitamin Tablet) 1 tab PO DAILY [facility] Last Admin: 10/25/22 10:23 Dose: 1 tab Documented By: BOY Omeprazole (Omeprazole 20 Mg Capsule.Dr) 20 mg PO BID@0630,1630 [facility] Last Admin: 10/25/22 05:55 Dose: Not Given Documented By: WARREN Non-Admin Reason: Patient Refused Ondansetron HCl (Ondansetron Hcl 4 Mg/2 Ml Vial) 4 mg IVPUSH Q8H PRN PRN Reason: Nausea and Vomiting Pharmacy Consult (Consult Rx Perform Med Rec) 1 each MISCELLANE ONCE PRN PRN Reason: Consult order Sodium Chloride (0.9 % Sodium Chloride Flush 3 Ml Syringe) 3 ml IVFLUSH QSHIFT [facility] Last Admin: 10/25/22 10:23 Dose: 3 ml Documented By: BOY Labs CBC & Chem 7: 10/25/22 06:29 10/25/22 06:29 Labs: Laboratory Results - last 24 hr 10/25/22 10/25/22 06:29 06:29 MCV 88.8 MCH 28.6 MCHC 32.2 RDW 14.6 Plt Count 274 MPV 9.8 Immature Gran % (Auto) 0.2 Neut % (Auto) 67.0 Lymph % (Auto) 15.6 L [place] % (Auto) 8.5 Eos % (Auto) 7.8 H Baso % (Auto) 0.9 Lymph # (Auto) 1.3 [place] # (Auto) 0.7 Eos # (Auto) 0.7 H Baso # (Auto) 0.1 Abs Immat Gran (auto) 0.02 Absolute Neuts (auto) 5.7 Absolute Nucleated RBC 0.000 Nucleated RBC % (auto) 0.0 Anion Gap 16 Estim Creat Clear Calc 35.5 Estimated GFR 43 Fasting Glucose 97 Calcium 8.7 Total Bilirubin 0.8 AST 19 ALT 18 Alkaline Phosphatase 123 H Total Protein 6.8 Albumin 3.3 L Assessment and Plan (1) Acute on chronic diastolic heart failure due to coronary artery disease: Status: Acute (2) Persistent atrial fibrillation: Status: Acute Plan 82-year-old female with a history of diastolic heart failure in the backdrop of atrial fibrillation presents with progressive shortness of breath over the last several days similar to her past presentation per her account. In the emergency room, found to be mildly short of breath with O2 requirement and a BNP greater than 1000. Monitor demonstrating AFib with a acceptable rate control 1. Acute on chronic diastolic heart failure -continue IV Lasix 40 mg b.i.d...switch to po and discharge -follow renals/divalents -titrate O2 to maintain sats greater than equal to 92% 2. Persistent atrial fibrillation -acceptable rate control -continue metoprolol and outpatient dosing.. . Adjust as indicated -continue apixaban 3. Atherosclerotic cardiovascular disease -continue statin/metoprolol 4. Hypertension -acceptable control on metoprolol alone -adjust as indicated Apixaban Full Code Will require ongoing hospitalization for IV diuresis to treat acute on chronic diastolic heart function Quality Stroke Does the patient have a stroke diagnosis?: No VTE Prior VTE?: No VTE Risk Level:: Medical - moderate - high VTE Device Contraindication: Treatment Not Indicated VTE Drug Contraindication: N/A - Med Ordered
[2022-10-25] MEDS: Omeprazole 20 MG CAPSULE.DR PO (16:17)
[2022-10-25] MEDS: Furosemide 40 MG TABLET PO (16:17)
[2022-10-25] MEDS: Atorvastatin Calcium 40 MG TABLET PO (21:41)
--- NOTE | 2022-10-25 21:46 | PC.NURSE ---
Patient refusing vital signs and refused Metoprolol , I explained the consequences of not taking it patient understood and still refused.
[2022-10-25 23:18] VITALS: BP 121/58; PULSE 91; RESP 18; TEMP 35.8; O2SAT 96
[2022-10-26 04:00] VITALS: BP 147/65; PULSE 93; RESP 18; TEMP 36.1; O2SAT 94
[2022-10-26 06:42] LABS: MANUAL DIFF FLAG NO
[2022-10-26 06:48] LABS: Basophils Absolute Auto 0.1 X10*3/uL (0.0-0.2); Eosinophils Absolute Auto 0.6 X10*3/uL (0.0-0.4); Eosinophils Percent Auto 6.4 % (0-4); Hematocrit 33.4 % (37.0-47.0); Hemoglobin 10.9 g/dl (12.0-16.0); Imm Gran Abs Auto 0.04 X10*3/uL (0.00-0.03); Imm Gran Pct Auto 0.5 % (0.0-0.4); Lymphocytes Absolute Auto 1.1 X10*3/uL (1.2-4.9); Lymphocytes Percent Auto 12.7 % (20-40); Mean Corpuscular HGB Conc 32.6 g/dl (31.0-35.0); Mean Corpuscular Hemoglobin 28.6 pg (27.0-33.0); Mean Corpuscular Volume 87.7 fL (80.0-98.0); Mean Platelet Volume 9.9 fL (9.4-12.3); Monocytes Absolute Auto 0.9 X10*3/uL (0.1-1.2); Monocytes Percent Auto 10.2 % (2-11); Neutrophils Percent Auto 69.2 % (45-73); Platelet Count 247 X10*3/uL (160-400); Red Blood Count 3.81 X10*6/uL (4.20-5.50); Red Cell Distribution Width 14.4 % (11.0-16.0); White Blood Count 8.7 X10*3/uL (4.8-10.8)
[2022-10-26 07:21] LABS: Alanine Aminotransferase 15 U/L (0-31); Albumin Level 3.2 g/dL (3.5-5.0); Alkaline Phosphatase 111 U/L (39-117); Anion Gap 15 (12-20); Aspartate Amino Transferase 19 U/L (5-31); Bilirubin Total 1.2 mg/dL (0.0-1.0); Blood Urea Nitrogen 21 mg/dL (9-16); Calcium 8.7 mg/dL (8.4-10.2); Carbon Dioxide 27 mmol/L (22-29); Chloride 96 mmol/L (96-108); Creatinine Clr Calc Pharmacy 36.8; Estimated Glomerular Filt Rate 44; Glucose Fasting 100 mg/dL (60-99); Potassium 3.4 mmol/L (3.3-5.1); Sodium 135 mmol/L (135-145); Total Protein 6.6 g/dL (6.5-8.0)
[2022-10-26 08:00] VITALS: BP 160/74; PULSE 93; RESP 18; TEMP 36.4; O2SAT 95
[2022-10-26] MEDS: Apixaban 5 MG TABLET PO (09:56)
[2022-10-26] MEDS: Multivitamin TABLET 1 TAB PO (09:56)
[2022-10-26] MEDS: Metoprolol Tartrate 25 MG TABLET PO (09:56)
[2022-10-26] MEDS: Magnesium Oxide 400 MG TABLET PO (09:57)
[2022-10-26] MEDS: Furosemide 40 MG TABLET PO (09:57)
[2022-10-26 12:00] VITALS: BP 137/60; PULSE 87; RESP 14; TEMP 36.7; O2SAT 92
--- NOTE | 2022-10-26 13:39 | MHC.CM.PN ---
pt to go home with cordelia floresto transport home
--- NOTE | 2022-10-26 14:47 | PM.DS ---
DS: Providers Provider Date of Service: 10/26/22 Date of admission: 10/22/22 18:45 Date of discharge: 10/26/22 Primary care physician: Edwin Allen MD Consults: 10/24/22 09:52 Consult to Cardiology Stat Consulting Provider: Emory Hargrove Reason for consultation: Acute diastolic CHF Has provider been notified: Yes DS: Diagnosis Discharge Diagnosis (1) Acute on chronic diastolic heart failure due to coronary artery disease: Status: Acute (2) Persistent atrial fibrillation: Status: Acute (3) Urinary tract infection: Status: Acute DS: Summary Hospital Course Hospital Course: 82 yo female assigned at w/ PMHx signficiant for CHF, hypertension, hyperlipidemia, and double bypass cardiac surgery presenting w/ a one day of worsening SOB. She describes her symptoms as difficulty getting enough air. She states that her symptoms began spontaneously and denies any exacerbating or alleviating factors. She reports that her symptoms are constant and unchanging since onset. She denies any recent hx of fever or known sick contacts. She endorses a 3-day hx of a non-productive cough.? She states this is similar to her past admission for congestive heart failure Hospital course Initial workup consistent with a BMP if greater than 1000 and urine with active sediment. Admitted to telemetry were monitored remained sinus rhythm throughout. Seen in consultation by Cardiology who agreed with the IV Lasix b.i.d. with switch to oral Lasix upon discharge. Urine culture ultimately grew out E coli sensitive to ceftriaxone and she will be sent out on Ceftin. Over the course of her hospitalization she had excellent response to therapy and on the day of discharge she is a satting room air without issue Time Spent with Patient Time attestation: Total time spent providing and/or coordinating discharge services: Discharge coordination time: Greater than 30 minutes Quality: Safe Use of Opioids Does Pt have an Active Cancer Diagnosis on the Problem List?: No Quality: Stroke Does the patient have a stroke diagnosis?: No Physical Exam Vital Signs: Vital Signs: Last Vital Signs Temp 98.1 F 10/26/22 12:00 Pulse 87 10/26/22 12:00 Resp 14 10/26/22 12:00 BP 137/60 10/26/22 12:00 Pulse Ox 92 10/26/22 12:00 O2 Del Method 10/26/22 12:00 BMI result Body Mass Index 27.4 Const: Other: Awake alert oriented x3. Able to speak in full sentences. Comfortable at 30 degrees Neck: Other: No JVD Resp: Other: Clear to auscultation bilaterally no rales rhonchi or wheezes Cardio: Other: Irregularly irregular; no S4; positive S1-S2; no S3 murmurs rubs or gallops GI: Other: Soft nontender nondistended normoactive bowel sounds Extrem: Other: No edema bilaterally DS: Data Data Completed and Pending Labs on day of discharge: Laboratory Results - last 24 hr 10/26/22 10/26/22 06:19 06:19 WBC 8.7 RBC 3.81 L Hgb 10.9 L Hct 33.4 L MCV 87.7 MCH 28.6 MCHC 32.6 RDW 14.4 Plt Count 247 MPV 9.9 Immature Gran % (Auto) 0.5 H Neut % (Auto) 69.2 Lymph % (Auto) 12.7 L [place] % (Auto) 10.2 Eos % (Auto) 6.4 H Baso % (Auto) 1.0 Lymph # (Auto) 1.1 L [place] # (Auto) 0.9 Eos # (Auto) 0.6 H Baso # (Auto) 0.1 Abs Immat Gran (auto) 0.04 H Absolute Neuts (auto) 6.0 Absolute Nucleated RBC 0.000 Nucleated RBC % (auto) 0.0 Sodium 135 Potassium 3.4 Chloride 96 Carbon Dioxide 27 Anion Gap 15 BUN 21 H Creatinine 1.17 Estim Creat Clear Calc 36.8 Estimated GFR 44 Fasting Glucose 100 H Calcium 8.7 Total Bilirubin 1.2 H AST 19 ALT 15 Alkaline Phosphatase 111 Total Protein 6.6 Albumin 3.2 L Discharge Plan Discharge Anticipated Discharge Date/Time: 10/26/22 14:43 Patient Disposition: Home Health Service Discharge Diagnosis: Acute on chronic diastolic heart failure Referrals: cordelia [Other] - 1 Week Po,Edwin Garcia MD [Primary Care Provider] - 1 Week Discharge Medications: New cefuroxime axetil 250 mg tablet 250 mg PO BID 7 Days Qty: 14 0RF furosemide [Lasix] 20 mg tablet 20 mg PO DAILY Qty: 30 0RF Continued omeprazole 20 mg capsule,delayed release(DR/EC) 20 mg PO BID 90 Days Qty: 180 0RF Eliquis 5 mg tablet 5 mg PO BID Qty: 180 3RF calcium carbonate 500 mg calcium (1,250 mg) Tablet 500 mg PO BID magnesium oxide 400 mg magnesium Tablet 400 mg PO DAILY atorvastatin 40 mg tablet 40 mg PO BEDTIME multivitamin Tablet 1 tab PO DAILY metoprolol tartrate 25 mg tablet 25 mg PO BID 90 Days Qty: 180 3RF Discharge Orders: Discharge Order (Routine); Ordered 10/26/22 Ordered By: Ortega Stewart Diet: Advance to usual diet Activity on Discharge: As tolerated Stand Alone Forms: Patient Portal Discharge page Care Plan Goals: Complete course of Ceftin 250 mg twice daily for 7 days Health Concerns: At Lasix to your pre home regimen; Lasix 20 mg daily Plan of Treatment: Follow-up with cardiology 2 weeks Assessment: As per discharge summary
--- NOTE | 2022-10-26 14:53 | P.F2F_ITS ---
Service Date Service Date: 10/26/22 Encounter Date of encounter: 10/26/22 Encounter: Acute inpatient admission Reasons for Services Signs and symptoms assessed: Admitted with CHF. Needs assessment of saturation and lung sounds Reason for group home: medication management, medication treatment, teach disease management and other (Breath sounds and saturation) Homebound: Leaving the home is medically contraindicated at this time without the asist of a device and/or another person due th the listed conditions above and below. Reason homebound: unsteady gait / fall risk, poor balance / fall risk and psychologically impaired / unsafe Certification: Based on the above findings, I certify that this patient is confined to the home and needs intermittent group home care, physical therapy and/or speech the rapy, or continues to need occupational therapy. The patient is under my care, and I have initiated the establishment of the plan of care. The patient will be followed by a physician who will periodically review the plan of care.
== END 2022-10-26 17:08 | disposition home health service (06) | DRG 291 ==
LOC: HO.ED 17:32 → HO.EDOVER 18:48 → HO.IMC 18:53
PROVIDERS: Physician Assistant Medical; Admitting Provider Hospitalist; Emergency Provider Emergency Medicine; PCP Internal Medicine; Visit Provider Hospitalist
DX: I11.0 Hypertensive heart disease with heart failure (principal); I50.33 Acute on chronic diastolic (congestive) heart failure; I48.19 Other persistent atrial fibrillation; N39.0 Urinary tract infection, site not specified; I73.9 Peripheral vascular disease, unspecified; I25.10 Atherosclerotic heart disease of native coronary artery without angina pectoris; Z20.822 Contact with and (suspected) exposure to COVID-19; Z95.1 Presence of aortocoronary bypass graft; Z87.891 Personal history of nicotine dependence; Z91.040 Latex allergy status; Z88.8 Allergy status to other drugs, medicaments and biological substances; Z79.01 Long term (current) use of anticoagulants; Z79.899 Other long term (current) drug therapy
CPT/HCPCS: 0241U; 36415; 71046; 80053; 81001; 82803; 83735; 83880; 84484; 85025; 87086; 87088; 87186; 93005; 99285; J0696; J1940

== ENCOUNTER 2022-11-07 21:41 | Inpatient (IN) | payer MEDICARE, SELFPAY ==
[2022-02-26 13:38] VITALS: BP 122/70; BP 132/80
[2022-10-20 12:25] VITALS: BP 116/64; BMI 28.6
--- NOTE | ~2022-11-07 | XR_ITS ---
EXAMINATION: XR CHEST CLINICAL INFORMATION: Cough COMPARISON: Chest x-ray on 10/22/2022 TECHNIQUE: Frontal view of the chest was obtained. FINDINGS: The cardiac silhouette is enlarged but stable. There is a left atrial appendage clip. There is mild diffuse bronchial wall thickening and chronic interstitial disease disease. No areas of consolidation. No pleural effusions. Moderate-large hiatal hernia XR/XR chest 1V IMPRESSION: . No acute disease.
--- NOTE | ~2022-11-07 | CT_ITS ---
EXAMINATION: CT CHEST WITHOUT CONTRAST CLINICAL INFORMATION: Cough. Weakness. COMPARISON: Chest radiograph 11/07/2022. CT chest 12/11/2020. TECHNIQUE: Multidetector volumetric CT imaging of the chest was done. Axial MIP volume rendering provided. Sagittal and coronal reformatted images were obtained. This CT examination was performed using dose optimization techniques as appropriate, variously including the following: *Automated exposure control *Adjustment of mA and/or kV according to patient size (this includes techniques or standardized protocols for targeted exams where dose is matched to indication/reason for exam; i.e. extremities or head) *Use of iterative reconstruction technique DLP: 274 mGy-cm FINDINGS: LUNGS: Extensive smooth intralobular septal thickening is present within the lungs. Peribronchial wall thickening is present diffusely. No focal pulmonary consolidation. Minimal bibasilar dependent atelectasis of the lungs. MEDIASTINUM: Dense aortic calcific atherosclerosis. Multiple mediastinal lymph nodes at the upper limits of normal size unchanged grossly compared with 12/11/2020. Moderate diffuse coronary artery calcific atherosclerosis. Left atrial enlargement. Right atrophic enlargement. No pericardial thickening or fluid collections. Dense mitral annulus calcification large hiatal hernia unchanged compared with 12/11/2020. Multiple median sternotomy wires. CORONARY ARTERY CALCIFICATION: Moderate scattered coronary artery calcific atherosclerosis. PLEURA: Trace left pleural effusion. AXILLA: No lymphadenopathy. UPPER ABDOMEN: Partial visualization of marked left renal atrophy. Partially visualized 2.5 cm diameter low density (0 Hounsfield units) benign-appearing simple cyst of the left kidney requiring no additional imaging follow-up. OSSEOUS STRUCTURES: Multilevel anterior endplate osteophytosis. No vertebral body compression deformities. CT/CT chest wo IV con IMPRESSION: *Findings suspicious for moderate interstitial pulmonary edema. *Trace left pleural effusion. *Chronic stable large hiatal hernia. *Moderate scattered coronary artery calcific atherosclerosis.
--- NOTE | 2022-11-07 21:43 | ECG_ITS ---
Test Reason : UPPER RESP Blood Pressure : / mmHG Vent. Rate : 090 BPM Atrial Rate : 000 BPM P-R Int : 000 ms QRS Dur : 122 ms QT Int : 394 ms P-R-T Axes : 000 -38 103 degrees QTc Int : 481 ms Atrial fibrillation Left axis deviation Left bundle branch block Abnormal ECG When compared with ECG of 22-OCT-2022 13:20, Atrial fibrillation has replaced Sinus rhythm Referred By: Elías Deleon Electronically Signed By:VAL BUSTAMANTE MD
[2022-11-07 21:44] VITALS: BP 157/66; PULSE 97; RESP 20; TEMP 36.6; O2SAT 95; BMI 27.4
--- NOTE | 2022-11-07 21:44 | ED.GENADULT ---
HPI - General Adult General Chief complaint: Upper Respiratory Symptoms <JAE Jenkins - Last Filed: 11/07/22 21:48> Stated complaint: Difficulty breathing <JAE Jenkins Last Filed: 11/07/22 21:48> Time Seen by Provider: 11/08/22 00:08 <JAE Jenkins - Last Filed: 11/07/22 21:48> Source: patient and family <Kristi Dumont DO - Last Filed: 11/08/22 02:30> Mode of arrival: ambulatory <Kristi Dumont DO - Last Filed: 11/08/22 02:30> Limitations: no limitations <Kristi Dumont DO - Last Filed: 11/08/22 02:30> History of Present Illness HPI narrative: 82 yo female with hx of HLD, HTN, PAF on eliquis, anemia, CHF, UTI recently admitted here for CHF and E. Coli UTI DC on 10/26 - sent home on ceftin and lasix daily. She notes she is compliant with her medications but started with cough, leg swelling, malaise x 2 days and feels like she is in CHF again. She has no chest pain. She is here with her son <Kristi Dumont DO - Last Filed: 11/08/22 02:30> MD complaint: cough, malaise <Kristi Dumont DO - Last Filed: 11/08/22 02:30> Onset (ago): day(s) (2) <Kristi Dumont DO - Last Filed: 11/08/22 02:30> Radiation: non-radiation <Kristi Dumont DO - Last Filed: 11/08/22 02:30> Severity: moderate <Kristi Dumont DO - Last Filed: 11/08/22 02:30> Quality: dull <Kristi Dumont DO - Last Filed: 11/08/22 02:30> Relieving factors: rest <Kristi Dumont DO - Last Filed: 11/08/22 02:30> Exacerbating factors: movement and other (exertion) <Kristi Dumont DO - Last Filed: 11/08/22 02:30> Associated symptoms: cough, malaise and shortness of breath <Kristi Dumont DO - Last Filed: 11/08/22 02:30> Treatments prior to arrival: none <Kristi Dumont DO - Last Filed: 11/08/22 02:30> Related Data Home medications: Home Medications Medication Instructions Recorded Confirmed multivitamin 1 tab PO DAILY 09/04/20 10/22/22 atorvastatin 40 mg tablet 40 mg PO BEDTIME 12/03/21 10/22/22 calcium carbonate 500 mg calcium 500 mg PO BID 12/03/21 10/22/22 (1,250 mg) tablet magnesium oxide 400 mg PO DAILY 12/03/21 10/22/22 Previous Rx's Medication Instructions Recorded metoprolol tartrate 25 mg tablet 25 mg PO BID 90 days #180 tabs 01/01/22 omeprazole 20 mg capsule,delayed 20 mg PO BID 90 days #180 caps 04/01/22 release apixaban 5 mg tablet (Eliquis) 5 mg PO BID #180 tabs 10/16/22 cefuroxime axetil 250 mg tablet 250 mg PO BID 7 days #14 tabs 10/26/22 furosemide 20 mg tablet (Lasix) 20 mg PO DAILY #30 tabs 10/26/22 <JAE Jenkins - Last Filed: 11/07/22 21:48> Allergies/adverse reactions: Allergies Allergy/AdvReac Type Severity Reaction Status Date / Time latex Allergy Mild rash Verified 09/30/22 15:15 simvastatin [Simvastatin] Allergy Mild NAUSEA Verified 09/30/22 15:15 <JAE Jenkins Last Filed: 11/07/22 21:48> Review of Systems Review of Systems: Constitutional : No Fever, No Chills, pos malaise ENT/Mouth : No sore throat, No Rhinorrhea, No Swallowing Difficulty Eyes: No Eye Pain, No Swelling, No Redness Cardiovascular : No Chest Pain, positive SOB, No Orthopnea, positive Edema Respiratory :pos Cough, No Sputum, No Wheezing, positive dyspnea Gastrointestinal : No Nausea, No Vomiting, No Diarrhea, No abdominal Pain, No Hematochezia, No Melena Genitourinary : No Dysuria, No Urinary Frequency, No Hematuria Musculoskeletal : No joint pain, No Myalgias Skin : No Skin Lesions, No rash Neuro : pos Weakness, No Numbness, No Dizziness, No Headache Psych : No Anxiety/Panic, No Depression Heme/Lymph: No Bruising, No Lymphadenopathy Endocrine : No Polyuria, No Polydipsia All other systems reviewed and are negative <Kristi Dumont DO - Last Filed: 11/08/22 02:30> [facility] Past Medical History Attestation statement: The following information was validated with the patient. 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 Chronic heart failure with preserved ejection fraction Cognitive impairment Colitis Coronary artery disease of bypass graft of [place] heart with stable angina pectoris Essential hypertension Hypercholesterolemia Peripheral vascular disease Persistent atrial fibrillation Subclavian artery stenosis, left <JAE Jenkins - Last Filed: 11/07/22 21:48> Surgical History: Surgical History History of coronary artery bypass graft (~06/2020) Status post aorto-coronary artery bypass graft <JAE Jenkins - Last Filed: 11/07/22 21:48> Family History Family History: Family History Father No problems noted. Mother No problems noted. <JAE Jenkins - Last Filed: 11/07/22 21:48> Social History Social History: Social History Household Members: Family Housing: House Do you presently have visiting nurse or other home services: No Alcohol intake: never Patient Tobacco Use Status: Former Tobacco user Tobacco use type: Cigarette e-Cigarette/Vaping Use: Never Used Second Hand Smoke Exposure: No Advance Directives: No Advance Directives Information Provided: Yes service: No Current occupational status: retired Cognitive needs: Yes Hearing needs: No Vision needs: Yes <JAE Jenkins - Last Filed: 11/07/22 21:48> Physical Exam ED Vital Signs: Vital Signs - 24 hr 11/07/22 21:44 11/07/22 23:55 11/08/22 01:57 Temperature 98 F 98.3 F 98.7 F Pulse Rate 97 96 107 H Respiratory Rate 20 16 16 Blood Pressure 157/66 H 143/67 H 147/74 H Pulse Oximetry 95 95 99 Oxygen Delivery Method Room Air Room Air Nasal Cannula Oxygen Flow Rate 2 BMI result Body Mass Index 27.4 <JAE Jenkins - Last Filed: 11/07/22 21:48> Vital Signs - 24 hr 11/07/22 21:44 11/07/22 23:55 11/08/22 01:57 Temperature 98 F 98.3 F 98.7 F Pulse Rate 97 96 107 H Respiratory Rate 20 16 16 Blood Pressure 157/66 H 143/67 H 147/74 H Pulse Oximetry 95 95 99 Oxygen Delivery Method Room Air Room Air Nasal Cannula Oxygen Flow Rate 2 BMI result Body Mass Index 27.4 <Kristi Dumont DO - Last Filed: 11/08/22 02:30> Appearance: Alert. Oriented X3. No acute distress. Eyes: Pupils equal, round and reactive to light. ENT: Pharynx normal. Neck: Normal inspection. Neck supple. CVS: irregular heart rate and rhythm. Pulses normal. Respiratory: No respiratory distress. Breath sounds mildly diminished in the bases Abdomen: Soft and non-tender. Skin: Skin warm and dry. Normal skin color. Normal skin turgor. Extremities: 1+ pitting lower extremity edema. No calf ttp Neuro: Oriented X 3. No motor deficit. No sensory deficit. <Kristi Dumont DO - Last Filed: 11/08/22 02:30> Course Course Course Narrative: RME 82 year old female presents with shortness of breath both at rest and w/ exertion, chest congestion/pressure, dry cough, fatigue, malise X2 days. DC from hospital after thanksgiving for CHF. Anticoagulated on Eliquis. Denies recent sick contacts. Patient is vaccinated against COVID, unknown vaccination status for flu. Patient tells me she recently stopped her Lasix as they were discontinued after she got discharged. Physical examination patient is saturating anywhere between 93-95% on room air. Patient not oxygen dependent. All other vital signs are stable. Full physical examination will be done by primary provider. Appears comfortable. Plan labs imaging, BNP, troponin, EKG will obtain viral panel. No need for D-dimer as patient is anticoagulated <JAE Jenkins - Last Filed: 11/07/22 21:48> Reevaluation(s) Reevaluation #1: was 90% on my interview at one point, will admit for diuresis no pneumonia on CT chest <DO Steve Diaz Last Filed: 11/08/22 02:30> Medications Administered Discontinued Medications Generic Name Dose Route Start Last Admin Trade Name Freq PRN Reason Stop Dose Admin Furosemide 40 mg 11/08/22 00:28 11/08/22 01:08 Furosemide 40 Mg/4 Ml Vial IVPUSH 11/08/22 00:29 40 mg ONCE ONE Administration Protocol <JAE Jenkins - Last Filed: 11/07/22 21:48> Medications Administered Discontinued Medications Generic Name Dose Route Start Last Admin Trade Name Freq PRN Reason Stop Dose Admin Furosemide 40 mg 11/08/22 00:28 11/08/22 01:08 Furosemide 40 Mg/4 Ml Vial IVPUSH 11/08/22 00:29 40 mg ONCE ONE Administration Protocol IV lasix 40mg <Kristi Dumont DO - Last Filed: 11/08/22 02:30> Procedures Procedure Narrative Procedure Narrative: bedside US - cardiac parasternal, subxiphoid and apical no pericardial effusion seen <DO Steve Diaz Last Filed: 11/08/22 02:30> Medical Decision Making Medical Decision Making MDM Narrative: 82 yo female with hx of HLD, HTN, PAF on eliquis, anemia, CHF, UTI here with malaise, dyspnea, shortness of breath on exertion at this time concern for CHF vs pneumonia vs ACS - EKG and tele looks like afib she is on DOAC already doubt VTE. Will give IV lasix, likely admit for elevated BNP, UA is ordered as well as CT chest to evaluate for pneumonia given dry cough and recent admit to rule out HCAP. Dispo per results and findings. <Kristi Dumont DO - Last Filed: 11/08/22 02:30> Differential Diagnoses: Differential diagnosis (pneumonia, chf, afib, viral syndrome) <DO Steve Diaz Last Filed: 11/08/22 02:30> Consideration of admission/observation: Consideration of Admission/Observation (will admit given saturations low 90s, increased BNP suspect CHF with symptoms and moderate pulm edema) <Kristi Dumont DO - Last Filed: 11/08/22 02:30> Discussion of management with other physician/healthcare provider/other source (e.g., hospitalist, assessment consultant, behavioral health): Discussion w/other physician/healthcare provider Management of the patient was discussed with: Hospitalist My interpretation is will admit for diuresis <Kristi Dumont DO - Last Filed: 11/08/22 02:30> Lab Attestation: I reviewed the patient's lab results. <Kristi Dumont DO - Last Filed: 11/08/22 02:30> Independent interpretation of EKG, rhythm strip, radiology study: Independent interp EKG,rhythm strip, radiology study I performed an independent interpretation of the: EKG ( ) and Plain X-Ray (no pulmonary edema) My interpretation is Rate: 90 Rhythm: irregular afib [place]: left LBBB ST T wave : tall t waves anteriorly inverted t waves I and aVL qTC: normal prior studies: no sig change from prior The study has been interpreted contemporaneously by me. EKG #2 Rate: 104 Rhythm: afib [place]: left LBBB ST T wave : tall t waves anteriorly inverted t waves I and aVL qTC: normal prior studies: no change from prior The study has been interpreted contemporaneously by me. . <Kristi Dumont DO - Last Filed: 11/08/22 02:30> Independent historian (e.g., spouse, EMS, friend): Independent historian (e.g., spouse, EMS, friend) Clinical information obtained from an independent historian. History obtained from or confirmed by: Other (son) <Kristi Dumont DO - Last Filed: 11/08/22 02:30> Discharge Plan Discharge Clinical Impression: CHF (congestive heart failure), Shortness of breath, Pulmonary edema <JAE Jenkins - Last Filed: 11/07/22 21:48> Patient Disposition: Admitted As Inpatient <JAE Jenkins - Last Filed: 11/07/22 21:48> Prescriptions: No Action omeprazole 20 mg capsule,delayed release(DR/EC) 20 mg PO BID 90 Days Qty: 180 0RF Eliquis 5 mg tablet 5 mg PO BID Qty: 180 3RF calcium carbonate 500 mg calcium (1,250 mg) Tablet 500 mg PO BID magnesium oxide 400 mg magnesium Tablet 400 mg PO DAILY atorvastatin 40 mg tablet 40 mg PO BEDTIME cefuroxime axetil 250 mg tablet 250 mg PO BID 7 Days Qty: 14 0RF furosemide [Lasix] 20 mg tablet 20 mg PO DAILY Qty: 30 0RF multivitamin Tablet 1 tab PO DAILY metoprolol tartrate 25 mg tablet 25 mg PO BID 90 Days Qty: 180 3RF <JAE Jenkins - Last Filed: 11/07/22 21:48>
[2022-11-07 22:13] LABS: MANUAL DIFF FLAG NO
[2022-11-07 22:17] LABS: Basophils Percent Auto 0.5 % (0-2); Eosinophils Absolute Auto 0.6 X10*3/uL (0.0-0.4); Eosinophils Percent Auto 7.5 % (0-4); Hematocrit 31.3 % (37.0-47.0); Imm Gran Abs Auto 0.01 X10*3/uL (0.00-0.03); Imm Gran Pct Auto 0.1 % (0.0-0.4); Lymphocytes Absolute Auto 1.3 X10*3/uL (1.2-4.9); Mean Corpuscular HGB Conc 31.9 g/dl (31.0-35.0); Mean Corpuscular Hemoglobin 28.6 pg (27.0-33.0); Mean Corpuscular Volume 89.4 fL (80.0-98.0); Mean Platelet Volume 9.8 fL (9.4-12.3); Monocytes Absolute Auto 0.6 X10*3/uL (0.1-1.2); Monocytes Percent Auto 7.9 % (2-11); Neutrophils Absolute Auto 5.2 x10*3/uL (2.0-8.3); Platelet Count 260 X10*3/uL (160-400); Red Cell Distribution Width 14.8 % (11.0-16.0); White Blood Count 7.8 X10*3/uL (4.8-10.8)
[2022-11-07 22:39] LABS: Alanine Aminotransferase 19 U/L (0-31); Albumin Level 3.4 g/dL (3.5-5.0); Alkaline Phosphatase 126 U/L (39-117); Anion Gap 14 (12-20); Aspartate Amino Transferase 25 U/L (5-31); Bilirubin Total 0.9 mg/dL (0.0-1.0); Blood Urea Nitrogen 19 mg/dL (9-16); Calcium 8.3 mg/dL (8.4-10.2); Carbon Dioxide 24 mmol/L (22-29); Chloride 102 mmol/L (96-108); Creatinine Clr Calc Pharmacy 28.6; Estimated Glomerular Filt Rate 33; Glucose Random 106 mg/dL (60-115); Potassium 3.7 mmol/L (3.3-5.1); Sodium 136 mmol/L (135-145); Total Protein 6.9 g/dL (6.5-8.0)
[2022-11-07 22:40] LABS: B Type Natriuretic Peptide 1459 pg/mL (<100); Troponin-I High Sensitivity 21.5 ng/L (<3.5-17.0)
[2022-11-07 22:56] LABS: Influenza A PCR NEGATIVE (Negative); Influenza B PCR NEGATIVE (Negative); Resp Syncy Virus RNA Qual PCR NEGATIVE (Negative); SARS COV2 PCR INHOUSE NEGATIVE (Negative)
[2022-11-07 23:55] VITALS: BP 143/67; PULSE 96; RESP 16; TEMP 36.8; O2SAT 95
[2022-11-08] VITALS (15 sets, daily range): BP systolic 111–215; BP diastolic 52–102; PULSE 75–138; RESP 14–19; TEMP 36.2–38.8; O2SAT 91–99
--- NOTE | 2022-11-08 00:20 | ECG_ITS ---
Test Reason : SOB Blood Pressure : / mmHG Vent. Rate : 104 BPM Atrial Rate : 000 BPM P-R Int : 000 ms QRS Dur : 124 ms QT Int : 392 ms P-R-T Axes : 000 -32 115 degrees QTc Int : 515 ms Undetermined rhythm Left axis deviation Left bundle branch block Abnormal ECG When compared with ECG of 07-NOV-2022 21:51, Undetermined rhythm has replaced Atrial fibrillation Referred By: Kristi Dumont Electronically Signed By:VAL BUSTAMANTE MD
--- NOTE | 2022-11-08 01:00 | PC.NURSE ---
Pt is difficult stick, this RN attempted twice, SANTOS Basilio also attempted once so far. MD Dumont aware
[2022-11-08] MEDS: Furosemide 40 MG/4 ML VIAL IVPUSH ×2 (01:08→12:36)
--- NOTE | 2022-11-08 01:51 | PC.NURSE ---
Pt up to commode
[2022-11-08 02:48] LABS: Appearance Urine Clear; Color Urine Yellow; Glucose Urine UA Negative (Negative); Leukocyte Esterase Urine Moderate (2+) (Negative); Nitrite Urine Negative (Negative); PH 7.5 (5.0-9.0); Specific Gravity - Urine <= 1.005 (1.005-1.025); UMIC TRIGGER UACC YES; Urine Blood Small (1+) (Negative); Urine Ketones Negative (Negative); Urine Protein Negative (Neg-Trace)
[2022-11-08 03:01] LABS: Bacteria Urine None Seen (None Seen); Hyaline Casts Urine 0-2 /LPF (0-2); RBC Urine 0-2 /HPF (0-2); Squamous Epithelial Cell Urine 0-2 /HPF (0-2); WBC Urine 0-5 /HPF (0-5)
--- NOTE | 2022-11-08 04:06 | P.HPHOSP_ITS ---
History of Present Illness Date of Service: 11/08/22 Chief Complaint: Dyspnea This is a 82-year-old female with pertinent history of chronic diastolic heart failure, persistent atrial fibrillation on Eliquis, CAD status post CABG, essential hypertension, gastroesophageal reflux disease who presents to the emergency department for evaluation of dyspnea. Of note patient was recently admitted and discharged on 10/26 for acute on chronic diastolic heart failure. She was discharged on Lasix 20 mg p.o.. Patient states she is compliant with the medications. She started developing dyspnea about 2 days prior to p resentation, it was progressive and worse with ambulation. Admits PND and leg swelling. No fever or chills but does have runny nose. Patient denies chest discomfort, palpitations, abdominal pain, changes in urinary or bowel habits Review of Systems Cardiovascular: Cardiovascular: Reports dyspnea on exertion and Reports paroxysmal nocturnal dyspnea Respiratory: Respiratory: Reports dyspnea on exertion Gastrointestinal: Gastrointestinal: Reports no additional gastrointestinal complaints Genitourinary: Genitourinary: Reports no additional female genitourinary complaints [facility] Medical History 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 Chronic heart failure with preserved ejection fraction Cognitive impairment Colitis Coronary artery disease of bypass graft of [place] heart with stable angina pectoris Essential hypertension Hypercholesterolemia Peripheral vascular disease Persistent atrial fibrillation Subclavian artery stenosis, left Family History Father No problems noted. Mother No problems noted. Surgical History History of coronary artery bypass graft (~06/2020) Status post aorto-coronary artery bypass graft Social History Household Members: Family Housing: House Do you presently have visiting nurse or other home services: No Alcohol intake: former Patient Tobacco Use Status: Former Tobacco user Tobacco use type: Cigarette Smoked in Last 30 Days: No e-Cigarette/Vaping Use: Never Used Second Hand Smoke Exposure: No Use of substances other than those prescribed or required for medical reasons: No Advance Directives: No Advance Directives Information Provided: Yes service: No Current occupational status: retired Cognitive needs: Yes Hearing needs: No Vision needs: Yes Meds Allergies Allergy/AdvReac Type Severity Reaction Status Date / Time latex Allergy Mild rash Verified 09/30/22 15:15 simvastatin [Simvastatin] Allergy Mild NAUSEA Verified 09/30/22 15:15 Active Medications: Current Medications Acetaminophen (Acetaminophen 325 Mg Tablet) 650 mg PO Q6H PRN PRN Reason: Pain, Mild (Pain Scale 1-3) Furosemide (Furosemide 40 Mg/4 Ml Vial) 40 mg IVPUSH DAILY [facility]; Protocol Melatonin (Melatonin 3 Mg Tablet) 6 mg PO BEDTIME PRN PRN Reason: Insomnia Ondansetron HCl (Ondansetron Hcl 4 Mg/2 Ml Vial) 4 mg IVPUSH Q8H PRN PRN Reason: Nausea and Vomiting Pharmacy Consult (Consult Rx Perform Med Rec) 1 each MISCELLANE ONCE PRN PRN Reason: Consult order Sodium Chloride (0.9 % Sodium Chloride Flush 3 Ml Syringe) 3 ml IVFLUSH QSHIFT [facility] Home Medications Medication Instructions Recorded Confirmed Last Taken Type multivitamin 1 tab PO DAILY 09/04/20 10/22/22 12/03/21 History atorvastatin 40 mg tablet 40 mg PO BEDTIME 12/03/21 10/22/22 12/02/21 History calcium carbonate 500 mg calcium 500 mg PO BID 12/03/21 10/22/22 12/03/21 History (1,250 mg) tablet magnesium oxide 400 mg PO DAILY 12/03/21 10/22/22 12/03/21 History Physical Exam Vital Signs and Narrative: Vital Signs: Last Vital Signs Temp 97.8 F 11/08/22 03:37 Pulse 98 11/08/22 03:37 Resp 16 11/08/22 03:37 BP 156/83 H 11/08/22 03:37 Pulse Ox 97 11/08/22 03:37 O2 Del Method 11/08/22 03:37 O2 Flow Rate 2 11/08/22 03:37 Oxygen Flow Rate 2 11/08/22 02:39 BMI result Body Mass Index 27.4 Elderly female lying in bed in on 2 L supplemental oxygen Neck supple, no JVD Irregularly irregular, S1-S2 heard Bilateral crackles appreciated Abdomen soft nontender, no guarding, no rigidity Patient is awake, alert and oriented to place and person ; no focal motor deficit Psych: Normal mood Bilateral +1 pedal edema Results Labs CBC and Chem 7: 11/07/22 22:07 11/07/22 22:07 Labs: Laboratory Results - last 24 hr 11/07/22 11/07/22 11/07/22 22:01 22:07 22:07 MCV 89.4 MCH 28.6 MCHC 31.9 RDW 14.8 Plt Count 260 MPV 9.8 Immature Gran % (Auto) 0.1 Neut % (Auto) 67.0 Lymph % (Auto) 17.0 L [place] % (Auto) 7.9 Eos % (Auto) 7.5 H Baso % (Auto) 0.5 Lymph # (Auto) 1.3 [place] # (Auto) 0.6 Eos # (Auto) 0.6 H Baso # (Auto) 0.0 Abs Immat Gran (auto) 0.01 Absolute Neuts (auto) 5.2 Absolute Nucleated RBC 0.000 Nucleated RBC % (auto) 0.0 Anion Gap 14 Estim Creat Clear Calc 28.6 Estimated GFR 33 Random Glucose 106 Calcium 8.3 L Magnesium 2.0 Total Bilirubin 0.9 AST 25 ALT 19 Alkaline Phosphatase 126 H Troponin I High Sens B-Natriuretic Peptide Total Protein 6.9 Albumin 3.4 L Urine Color Urine Appearance Urine pH Ur Specific [place] Urine Protein Urine Glucose (UA) Urine Ketones Urine Blood Urine Nitrite Ur Leukocyte Esterase Urine RBC Urine WBC Ur Squamous Epith Cells Urine Bacteria Hyaline Casts Influenza Type A (PCR) NEGATIVE Influenza Type B (PCR) NEGATIVE RSV RNA Qual (PCR) NEGATIVE SARS-CoV-2 RNA (RT-PCR) NEGATIVE 11/07/22 11/07/22 11/08/22 22:07 22:07 02:34 MCV MCH MCHC RDW Plt Count MPV Immature Gran % (Auto) Neut % (Auto) Lymph % (Auto) [place] % (Auto) Eos % (Auto) Baso % (Auto) Lymph # (Auto) [place] # (Auto) Eos # (Auto) Baso # (Auto) Abs Immat Gran (auto) Absolute Neuts (auto) Absolute Nucleated RBC Nucleated RBC % (auto) Anion Gap Estim Creat Clear Calc Estimated GFR Random Glucose Calcium Magnesium Total Bilirubin AST ALT Alkaline Phosphatase Troponin I High Sens 21.5 H B-Natriuretic Peptide 1459 H Total Protein Albumin Urine Color Yellow Urine Appearance Clear Urine pH 7.5 Ur Specific [place] <= 1.005 Urine Protein Negative Urine Glucose (UA) Negative Urine Ketones Negative Urine Blood Small (1+) H Urine Nitrite Negative Ur Leukocyte Esterase Moderate (2+) H Urine RBC 0-2 Urine WBC 0-5 Ur Squamous Epith Cells 0-2 Urine Bacteria None Seen Hyaline Casts 0-2 Influenza Type A (PCR) Influenza Type B (PCR) RSV RNA Qual (PCR) SARS-CoV-2 RNA (RT-PCR) Imaging Radiologist's Impressions: Impressions Chest X-Ray 11/07/22 22:15 IMPRESSION: . No acute disease. Chest CT 11/08/22 01:33 IMPRESSION: *Findings suspicious for moderate interstitial pulmonary edema. *Trace left pleural effusion. *Chronic stable large hiatal hernia. *Moderate scattered coronary artery calcific atherosclerosis. Assessment and Plan (1) CHF (congestive heart failure): Qualifiers: Heart failure chronicity: acute on chronic Heart failure type: unspecified Qualified Code(s): I50.9 - Heart failure, unspecified Status: Acute (2) PAD (peripheral artery disease): Status: Acute (3) Persistent atrial fibrillation: Status: Acute (4) Hypercholesterolemia: Status: Acute (5) Essential hypertension: Status: Acute (6) Atherosclerotic cardiovascular disease: Status: Acute Plan This is a 82-year-old female with pertinent history of chronic diastolic heart failure, persistent atrial fibrillation on Eliquis, CAD status post CABG, essential hypertension, gastroesophageal reflux disease who presents to the emergency department for evaluation of dyspnea. #. Acute hypoxemic respiratory failure secondary to acute on chronic diastolic heart failure: Decompensation likely due to viral infection. Will admit patient and continue IV Lasix. Transition to p.o. Lasix once euvolemia is achieved. Low-salt diet and strict I's and O's. Maintain oxygen saturation and wean as tolerated, currently on 2 L supplemental oxygen #. Persistent atrial fibrillation on Eliquis: Continue metoprolol, rate controlled in the ER #. Essential hypertension: Continue diuretic and beta-ollie #. Coronary artery disease status post CABG: Continue high-intensity statin and beta-ollie #. Gastroesophageal reflux disease: On PPI Med rec pending DVT prophylaxis: Eliquis Cardiac diet Full code Admit as inpatient and will require two night minimum hospital stay for IV Lasix Time Spent With Patient Time: Total time managing care of this patient today ____ minutes. Quality Stroke Does the patient have a stroke diagnosis?: No VTE Prior VTE?: No VTE Risk Level:: Medical - moderate - high VTE Device Contraindication: Treatment Not Indicated VTE Drug Contraindication: N/A - Med Ordered
--- NOTE | 2022-11-08 04:22 | PC.NURSE ---
PT assisted to bedside commode and then back to bed.
[2022-11-08 06:55] LABS: MANUAL DIFF FLAG NO
[2022-11-08 07:00] LABS: Basophils Absolute Auto 0.1 X10*3/uL (0.0-0.2); Basophils Percent Auto 0.6 % (0-2); Eosinophils Absolute Auto 0.3 X10*3/uL (0.0-0.4); Eosinophils Percent Auto 3.7 % (0-4); Hematocrit 32.1 % (37.0-47.0); Hemoglobin 10.5 g/dl (12.0-16.0); Imm Gran Abs Auto 0.04 X10*3/uL (0.00-0.03); Imm Gran Pct Auto 0.5 % (0.0-0.4); Lymphocytes Absolute Auto 0.9 X10*3/uL (1.2-4.9); Lymphocytes Percent Auto 9.8 % (20-40); Mean Corpuscular HGB Conc 32.7 g/dl (31.0-35.0); Mean Corpuscular Hemoglobin 28.5 pg (27.0-33.0); Mean Corpuscular Volume 87.2 fL (80.0-98.0); Mean Platelet Volume 9.6 fL (9.4-12.3); Monocytes Absolute Auto 0.5 X10*3/uL (0.1-1.2); Monocytes Percent Auto 6.2 % (2-11); Neutrophils Absolute Auto 6.9 x10*3/uL (2.0-8.3); Neutrophils Percent Auto 79.2 % (45-73); Platelet Count 244 X10*3/uL (160-400); Red Blood Count 3.68 X10*6/uL (4.20-5.50); Red Cell Distribution Width 14.8 % (11.0-16.0); White Blood Count 8.7 X10*3/uL (4.8-10.8)
--- NOTE | 2022-11-08 07:27 | PC.NURSE ---
Patient refuse breakfast.
[2022-11-08 07:36] LABS: Anion Gap 16 (12-20); Blood Urea Nitrogen 18 mg/dL (9-16); Calcium 8.6 mg/dL (8.4-10.2); Carbon Dioxide 24 mmol/L (22-29); Chloride 103 mmol/L (96-108); Creatinine Clr Calc Pharmacy 31.4; Estimated Glomerular Filt Rate 37; Glucose Random 109 mg/dL (60-115); Potassium 3.6 mmol/L (3.3-5.1); Sodium 139 mmol/L (135-145)
--- NOTE | 2022-11-08 08:26 | PHA.MEDREC ---
Pharmacy Consult ? Medication Reconciliation Pharmacy has completed the medication reconciliation.
[2022-11-08] MEDS: ondansetron HCL 4 MG/2 ML VIAL IVPUSH (12:35)
[2022-11-08] MEDS: 0.9 % Sodium Chloride Flush 3 ML SYRINGE IVFLUSH ×3 (12:36→19:47)
[2022-11-08 12:54] LABS: Glucose, Whole Blood 130 mg/dL (60-115)
[2022-11-08] MEDS: dilTIAZem HCL 50 MG/10 ML VIAL 10 MG IVPUSH (12:55)
[2022-11-08] MEDS: guaiFENesin 100 MG/5 ML LIQUID PO (13:04)
[2022-11-08] MEDS: Metoprolol Tartrate 25 MG TABLET PO ×2 (15:18→19:47)
[2022-11-08] MEDS: Furosemide 20 MG TABLET PO (15:18)
[2022-11-08] MEDS: Acetaminophen 325 MG TABLET 650 MG PO (17:29)
[2022-11-08] MEDS: Atorvastatin Calcium 40 MG TABLET PO (19:47)
[2022-11-08] MEDS: Apixaban 5 MG TABLET PO (19:47)
[2022-11-08] MEDS: Omeprazole 20 MG CAPSULE.DR PO (19:47)
[2022-11-09 03:25] VITALS: BP 134/60; PULSE 79; RESP 18; TEMP 36.5; O2SAT 99
[2022-11-09 08:00] VITALS: BP 136/68; PULSE 85; RESP 16; TEMP 36.8; O2SAT 93
[2022-11-09] MEDS: 0.9 % Sodium Chloride Flush 3 ML SYRINGE IVFLUSH ×2 (09:40→23:04)
[2022-11-09] MEDS: Omeprazole 20 MG CAPSULE.DR PO ×2 (09:41→19:33)
[2022-11-09] MEDS: Furosemide 20 MG TABLET PO (09:41)
[2022-11-09] MEDS: Multivitamin TABLET 1 TAB PO (09:41)
[2022-11-09] MEDS: Magnesium Oxide 400 MG TABLET PO (09:41)
[2022-11-09] MEDS: Metoprolol Tartrate 25 MG TABLET PO ×2 (09:41→19:33)
[2022-11-09] MEDS: Apixaban 5 MG TABLET PO ×2 (09:41→19:33)
[2022-11-09] MEDS: Furosemide 40 MG/4 ML VIAL IVPUSH (09:41)
--- NOTE | 2022-11-09 10:53 | P.PNIM_ITS ---
Subjective Subjective Date of Service: 11/09/22 Interval History: Seen in f/u for acute exacerbation of heart failure interval history: feels better, no longer sob, HR is controlled Review of Systems no sob no palpitations Physical Exam Vital Signs: Vital Signs: Last Vital Signs Temp 98.3 F 11/09/22 08:00 Pulse 85 11/09/22 08:00 Resp 16 11/09/22 08:00 BP 136/68 11/09/22 08:00 Pulse Ox 93 11/09/22 08:00 O2 Del Method 11/09/22 08:00 O2 Flow Rate 2 11/09/22 08:00 Oxygen Flow Rate 2 11/08/22 13:32 BMI result Body Mass Index 27.4 Const: Other: Neck supple, no JVD Irregularly irregular, S1-S2 heard, trace leg edema Bilateral crackles appreciated Abdomen soft nontender, no guarding, no rigidity Patient is awake, alert and oriented to place and person ; no focal motor deficit Psych: Normal mood Objective Data Active Medications Acetaminophen (Acetaminophen 325 Mg Tablet) 650 mg PO Q6H PRN PRN Reason: Pain, Mild (Pain Scale 1-3) Last Admin: 11/08/22 17:29 Dose: 650 mg Documented By: JUNE Apixaban (Apixaban 5 Mg Tablet) 5 mg PO BID [facility] Last Admin: 11/09/22 09:41 Dose: 5 mg Documented By: JUNE Atorvastatin Calcium (Atorvastatin Calcium 40 Mg Tablet) 40 mg PO BEDTIME [facility] Last Admin: 11/08/22 19:47 Dose: 40 mg Documented By: M[place] Calcium Carbonate (Calcium Carbonate 500 Mg Tablet) 500 mg PO BID [facility] Last Admin: 11/09/22 09:41 Dose: 500 mg Documented By: JUNE Furosemide (Furosemide 40 Mg/4 Ml Vial) 40 mg IVPUSH DAILY [facility]; Protocol Last Admin: 11/09/22 09:41 Dose: 40 mg Documented By: JUNE Furosemide (Furosemide 20 Mg Tablet) 20 mg PO DAILY [facility]; Protocol Last Admin: 11/09/22 09:41 Dose: 20 mg Documented By: JUNE Guaifenesin (Guaifenesin 100 Mg/5 Ml Liquid) 5 ml PO Q6H PRN PRN Reason: Cough Last Admin: 11/08/22 13:04 Dose: 5 ml Documented By: JUNE Magnesium Oxide (Magnesium Oxide 400 Mg Tablet) 400 mg PO DAILY [facility] Last Admin: 11/09/22 09:41 Dose: 400 mg Documented By: JUNE Melatonin (Melatonin 3 Mg Tablet) 6 mg PO BEDTIME PRN PRN Reason: Insomnia Metoprolol Tartrate (Metoprolol Tartrate 25 Mg Tablet) 25 mg PO BID [facility]; Protocol Last Admin: 11/09/22 09:41 Dose: 25 mg Documented By: JUNE Multivitamins/Vitamin C (Multivitamin Tablet) 1 tab PO DAILY [facility] Last Admin: 11/09/22 09:41 Dose: 1 tab Documented By: JUNE Omeprazole (Omeprazole 20 Mg Capsule.) 20 mg PO BID [facility] Last Admin: 11/09/22 09:41 Dose: 20 mg Documented By: JUNE Ondansetron HCl (Ondansetron Hcl 4 Mg/2 Ml Vial) 4 mg IVPUSH Q8H PRN PRN Reason: Nausea and Vomiting Last Admin: 11/08/22 12:35 Dose: 4 mg Documented By: JUNE Pharmacy Consult (Consult Rx Perform Med Rec) 1 each MISCELLANE ONCE PRN PRN Reason: Consult order Sodium Chloride (0.9 % Sodium Chloride Flush 3 Ml Syringe) 3 ml IVFLUSH QSHIFT [facility] Last Admin: 11/09/22 09:40 Dose: 3 ml Documented By: JUNE Labs CBC & Chem 7: 11/08/22 06:41 11/08/22 06:41 Labs: Laboratory Results - last 24 hr 11/08/22 12:41 POC Glucose 130 H Assessment and Plan (1) Shortness of breath: Status: Acute (2) Pulmonary edema: Status: Acute Plan 82-year-old female with pertinent history of chronic diastolic heart failure, persistent atrial fibrillation on Eliquis, CAD status post CABG, essential hypertension, gastroesophageal reflux disease who presents to the emergency department for evaluation of dyspnea. #. Acute hypoxemic respiratory failure secondary to acute on chronic diastolic heart failure: Decompensation likely due to viral infection. -IV Lasix. Transition to p.o. Lasix once euvolemia is achieved. Low-salt diet and strict I's and O's. Maintain oxygen saturation and wean as tolerated, currently on 2 L supplemental oxygen #. Persistent atrial fibrillation on Eliquis: RVR yesterday treated with IV cardizem, now rate control, continue home metoprolol 25 bid #. Essential hypertension: Continue metoprolol #. Coronary artery disease status post CABG: no ACS, Continue high-intensity statin and beta-ollie #. Gastroesophageal reflux disease: On PPI DVT prophylaxis: Eliquis Cardiac diet Full code Need for inpatient Acute heart failure that is being treated wtih IV diuretics and monitoring response, this cannot be done in less acute setting Time Spent With Patient Time: Total time managing care of this patient today ____ minutes. Quality Stroke Does the patient have a stroke diagnosis?: No VTE Prior VTE?: No VTE Risk Level:: Medical - moderate - high VTE Device Contraindication: Treatment Not Indicated VTE Drug Contraindication: N/A - Med Ordered
[2022-11-09 11:21] VITALS: BP 143/71; PULSE 98; RESP 18; TEMP 36.9; O2SAT 93
[2022-11-09 16:00] VITALS: BP 130/61; PULSE 95; RESP 16; TEMP 37; O2SAT 98
--- NOTE | 2022-11-09 16:06 | MHC.CM.PN ---
CM MET WIT PT AND DAUGHTER AT BEDSIDE PT LIVES WITH HER SON, OMAR AND IS INDEPENDENT WITH [facility] PT HAS A CANE SHE USES PRN PT IS ACTIVE WITH [facility] FOR PT ONLY HCP ON FILE PCP: CECILIA ROUSSEAU DAUGHTER REPORTS PT IS COVID VAX AND HAS HAD TWO BOOSTERS IMM DELIVERED CURRENT DC PLAN IS HOME WITH RESUMPTION OF SERVICES FAMILY TO TRANSPORT
[2022-11-09] MEDS: Atorvastatin Calcium 40 MG TABLET PO (19:33)
[2022-11-09 19:34] VITALS: BP 140/65; PULSE 95; RESP 16; TEMP 37.2; O2SAT 99
[2022-11-09 23:20] VITALS: BP 157/75; PULSE 99; RESP 18; TEMP 36.1; O2SAT 95
[2022-11-10] VITALS (7 sets, daily range): BP systolic 118–146; BP diastolic 57–67; PULSE 75–99; RESP 14–20; TEMP 36.2–37; O2SAT 91–99
[2022-11-10] MEDS: 0.9 % Sodium Chloride Flush 3 ML SYRINGE IVFLUSH ×3 (08:46→20:13)
[2022-11-10] MEDS: Omeprazole 20 MG CAPSULE.DR PO ×2 (08:46→20:13)
[2022-11-10] MEDS: Multivitamin TABLET 1 TAB PO (08:47)
[2022-11-10] MEDS: Metoprolol Tartrate 25 MG TABLET PO ×2 (08:47→20:13)
[2022-11-10] MEDS: Magnesium Oxide 400 MG TABLET PO (08:47)
[2022-11-10] MEDS: Apixaban 5 MG TABLET PO ×2 (08:47→20:13)
[2022-11-10] MEDS: Furosemide 20 MG TABLET PO (08:57)
--- NOTE | 2022-11-10 15:26 | MHC.CM.PN ---
spoke with pts dgbecerra [phone] pts readiness for dc today w/vna pts tiki disagrees with dc today and wants to file an appeal [facility] phone number given to luis manuel
--- NOTE | 2022-11-10 15:56 | HO.PM.IMPN ---
Subjective Subjective Date of Service: 11/10/22 Interval History: Seen in f/u for acute exacerbation of heart failure interval history: Patient is feeling better, no sob, cough is better, Review of Systems no sob no palpitations Physical Exam Vital Signs: Vital Signs: Last Vital Signs Temp 98.6 F 11/10/22 11:14 Pulse 75 11/10/22 12:14 Resp 20 11/10/22 11:14 BP 121/67 11/10/22 11:14 Pulse Ox 93 11/10/22 12:14 O2 Del Method 11/10/22 11:14 O2 Flow Rate 2 11/10/22 11:14 Oxygen Flow Rate 2 11/08/22 13:32 BMI result Body Mass Index 27.4 Const: Other: General: AO X 3, no acute distress Resp: CTA bilateral, no rales, no wheezes CVS: S1,S2 IregIreg GI: +BS, NT, no distention Skin: No rash Neuro: motor grossly intact Psych: appropriate affect Objective Data Active Medications Acetaminophen (Acetaminophen 325 Mg Tablet) 650 mg PO Q6H PRN PRN Reason: Pain, Mild (Pain Scale 1-3) Last Admin: 11/08/22 17:29 Dose: 650 mg Documented By: JUNE Apixaban (Apixaban 5 Mg Tablet) 5 mg PO BID [facility] Last Admin: 11/10/22 08:47 Dose: 5 mg Documented By: MICHELLE Atorvastatin Calcium (Atorvastatin Calcium 40 Mg Tablet) 40 mg PO BEDTIME [facility] Last Admin: 11/09/22 19:33 Dose: 40 mg Documented By: MARK Calcium Carbonate (Calcium Carbonate 500 Mg Tablet) 500 mg PO BID [facility] Last Admin: 11/10/22 08:47 Dose: 500 mg Documented By: MICHELLE Furosemide (Furosemide 40 Mg/4 Ml Vial) 40 mg IVPUSH DAILY [facility]; Protocol Last Admin: 11/10/22 08:56 Dose: Not Given Documented By: MICHELLE Non-Admin Reason: PO only per MD. Furosemide (Furosemide 20 Mg Tablet) 20 mg PO DAILY [facility]; Protocol Last Admin: 11/10/22 08:57 Dose: 20 mg Documented By: MICHELLE Guaifenesin (Guaifenesin 100 Mg/5 Ml Liquid) 5 ml PO Q6H PRN PRN Reason: Cough Last Admin: 11/08/22 13:04 Dose: 5 ml Documented By: JUNE Magnesium Oxide (Magnesium Oxide 400 Mg Tablet) 400 mg PO DAILY [facility] Last Admin: 11/10/22 08:47 Dose: 400 mg Documented By: MICHELLE Melatonin (Melatonin 3 Mg Tablet) 6 mg PO BEDTIME PRN PRN Reason: Insomnia Metoprolol Tartrate (Metoprolol Tartrate 25 Mg Tablet) 25 mg PO BID [facility]; Protocol Last Admin: 11/10/22 08:47 Dose: 25 mg Documented By: MICHELLE Multivitamins/Vitamin C (Multivitamin Tablet) 1 tab PO DAILY [facility] Last Admin: 11/10/22 08:47 Dose: 1 tab Documented By: MICHELLE Omeprazole (Omeprazole 20 Mg Capsule.) 20 mg PO BID [facility] Last Admin: 11/10/22 08:46 Dose: 20 mg Documented By: MICHELLE Ondansetron HCl (Ondansetron Hcl 4 Mg/2 Ml Vial) 4 mg IVPUSH Q8H PRN PRN Reason: Nausea and Vomiting Last Admin: 11/08/22 12:35 Dose: 4 mg Documented By: JUNE Pharmacy Consult (Consult Rx Perform Med Rec) 1 each MISCELLANE ONCE PRN PRN Reason: Consult order Sodium Chloride (0.9 % Sodium Chloride Flush 3 Ml Syringe) 3 ml IVFLUSH QSHIFT [facility] Last Admin: 11/10/22 08:46 Dose: 3 ml Documented By: MICHELLE Labs CBC & Chem 7: 11/08/22 06:41 11/08/22 06:41 Assessment and Plan (1) Shortness of breath: Status: Acute (2) Pulmonary edema: Status: Acute Plan 82-year-old female with pertinent history of chronic diastolic heart failure, persistent atrial fibrillation on Eliquis, CAD status post CABG, essential hypertension, gastroesophageal reflux disease who presents to the emergency department for evaluation of dyspnea. #. Acute hypoxemic respiratory failure secondary to acute on chronic diastolic heart failure: Decompensation likely due to viral infection. -IV Lasix. PO lasix. wean off O2 #. Persistent atrial fibrillation on Eliquis: RVR resolved. continue metorprolol and Eliquis for stroke prevention. #. Essential hypertension: Continue metoprolol #. Coronary artery disease status post CABG: no ACS, Continue high-intensity statin and beta-ollie #. Gastroesophageal reflux disease: On PPI DVT prophylaxis: Eliquis Cardiac diet Full code Need for inpatient Acute heart failure that is being treated wtih IV diuretics and monitoring response, this cannot be done in less acute setting DC home if maintain O2 saturation on room air Time Spent With Patient Time: Total time managing care of this patient today ____ minutes. Quality Stroke Does the patient have a stroke diagnosis?: No VTE Prior VTE?: No VTE Risk Level:: Medical - moderate - high VTE Device Contraindication: Treatment Not Indicated VTE Drug Contraindication: N/A - Med Ordered
[2022-11-10] MEDS: Atorvastatin Calcium 40 MG TABLET PO (20:13)
[2022-11-10] MEDS: Melatonin 3 MG TABLET 6 MG PO (20:13)
[2022-11-11 03:49] VITALS: BP 113/58; PULSE 80; RESP 18; TEMP 36.3; O2SAT 93
[2022-11-11 07:12] VITALS: BP 117/59; PULSE 81; RESP 20; TEMP 36.9; O2SAT 96
[2022-11-11] MEDS: Apixaban 5 MG TABLET PO ×2 (09:19→20:38)
[2022-11-11] MEDS: Multivitamin TABLET 1 TAB PO (09:20)
[2022-11-11] MEDS: 0.9 % Sodium Chloride Flush 3 ML SYRINGE IVFLUSH ×3 (09:20→20:42)
[2022-11-11] MEDS: Furosemide 40 MG/4 ML VIAL IVPUSH (09:20)
[2022-11-11] MEDS: Magnesium Oxide 400 MG TABLET PO (09:20)
[2022-11-11] MEDS: Furosemide 20 MG TABLET PO (09:20)
[2022-11-11] MEDS: Omeprazole 20 MG CAPSULE.DR PO ×2 (09:20→20:38)
[2022-11-11] MEDS: Metoprolol Tartrate 25 MG TABLET PO ×2 (09:20→20:38)
--- NOTE | 2022-11-11 10:06 | MHC.CM.PN ---
A call was placed to pts dtr re discharge. The phone rang twice: but no one answered. The call was placed again still no one spoke after the phone rang twice. The patients son Orlando was then called. No answer. A VM was left requesting a return call to plan discharge. Per CM chef assistant there was no call received by [facility] for an appeal.
[2022-11-11 10:56] VITALS: PULSE 90; O2SAT 96
[2022-11-11 11:29] VITALS: BP 128/58; PULSE 80; RESP 18; TEMP 36.8; O2SAT 94
--- NOTE | 2022-11-11 14:46 | HO.PM.IMPN ---
Subjective Subjective Date of Service: 11/12/22 Interval History: ?f/u for acute exacerbation of heart failure Review of Systems Patient is feeling better, no sob, cough is better, Physical Exam Vital Signs: Vital Signs: Last Vital Signs Temp 98.2 F 11/11/22 11:29 Pulse 80 11/11/22 11:29 Resp 18 11/11/22 11:29 BP 128/58 L 11/11/22 11:29 Pulse Ox 94 11/11/22 11:29 O2 Del Method 11/11/22 11:29 O2 Flow Rate 2 11/10/22 11:14 Oxygen Flow Rate 2 11/08/22 13:32 BMI result Body Mass Index 27.4 General: AO X 3, no acute distress Resp:? CTA bilateral, no rales, no wheezes CVS: S1,S2 IregIreg GI: +BS, NT, no distention Skin: No rash Neuro:? motor grossly intact Psych: appropriate affect Objective Data Active Medications Acetaminophen (Acetaminophen 325 Mg Tablet) 650 mg PO Q6H PRN PRN Reason: Pain, Mild (Pain Scale 1-3) Last Admin: 11/08/22 17:29 Dose: 650 mg Documented By: JUNE Apixaban (Apixaban 5 Mg Tablet) 5 mg PO BID [facility] Last Admin: 11/11/22 09:19 Dose: 5 mg Documented By: MICHELLE Atorvastatin Calcium (Atorvastatin Calcium 40 Mg Tablet) 40 mg PO BEDTIME [facility] Last Admin: 11/10/22 20:13 Dose: 40 mg Documented By: PAVAN Calcium Carbonate (Calcium Carbonate 500 Mg Tablet) 500 mg PO BID [facility] Last Admin: 11/11/22 09:19 Dose: 500 mg Documented By: MICHELLE Furosemide (Furosemide 40 Mg/4 Ml Vial) 40 mg IVPUSH DAILY [facility]; Protocol Last Admin: 11/11/22 09:20 Dose: 40 mg Documented By: MICHELLE Furosemide (Furosemide 20 Mg Tablet) 20 mg PO DAILY [facility]; Protocol Last Admin: 11/11/22 09:20 Dose: 20 mg Documented By: MICHELLE Guaifenesin (Guaifenesin 100 Mg/5 Ml Liquid) 5 ml PO Q6H PRN PRN Reason: Cough Last Admin: 11/08/22 13:04 Dose: 5 ml Documented By: JUNE Magnesium Oxide (Magnesium Oxide 400 Mg Tablet) 400 mg PO DAILY [facility] Last Admin: 11/11/22 09:20 Dose: 400 mg Documented By: MICHELLE Melatonin (Melatonin 3 Mg Tablet) 6 mg PO BEDTIME PRN PRN Reason: Insomnia Last Admin: 11/10/22 20:13 Dose: 6 mg Documented By: PAVAN Metoprolol Tartrate (Metoprolol Tartrate 25 Mg Tablet) 25 mg PO BID [facility]; Protocol Last Admin: 11/11/22 09:20 Dose: 25 mg Documented By: MICHELLE Multivitamins/Vitamin C (Multivitamin Tablet) 1 tab PO DAILY [facility] Last Admin: 11/11/22 09:20 Dose: 1 tab Documented By: MICHELLE Omeprazole (Omeprazole 20 Mg Capsule.Dr) 20 mg PO BID [facility] Last Admin: 11/11/22 09:20 Dose: 20 mg Documented By: MICHELLE Ondansetron HCl (Ondansetron Hcl 4 Mg/2 Ml Vial) 4 mg IVPUSH Q8H PRN PRN Reason: Nausea and Vomiting Last Admin: 11/08/22 12:35 Dose: 4 mg Documented By: JUNE Pharmacy Consult (Consult Rx Perform Med Rec) 1 each MISCELLANE ONCE PRN PRN Reason: Consult order Sodium Chloride (0.9 % Sodium Chloride Flush 3 Ml Syringe) 3 ml IVFLUSH QSHIFT [facility] Last Admin: 11/11/22 09:20 Dose: 3 ml Documented By: MICHELLE Labs CBC & Chem 7: 11/08/22 06:41 11/08/22 06:41 Assessment and Plan (1) Shortness of breath: Status: Acute (2) Pulmonary edema: Status: Acute (3) CHF (congestive heart failure): Status: Acute Plan 82-year-old female with pertinent history of chronic diastolic heart failure, persistent atrial fibrillation on Eliquis, CAD status post CABG, essential hypertension, gastroesophageal reflux disease who presents to the emergency department for evaluation of dyspnea. #. Acute hypoxemic respiratory failure secondary to acute on chronic diastolic heart failure: Decompensation likely due to viral infection. -IV Lasix. PO lasix. wean off O2 #. Persistent atrial fibrillation on Eliquis: RVR resolved. continue metorprolol and Eliquis for stroke prevention. #. Essential hypertension: Continue metoprolol #. Coronary artery disease status post CABG: no ACS, Continue high-intensity statin and beta-ollie #. Gastroesophageal reflux disease: On PPI DVT prophylaxis: Eliquis Cardiac diet Full code Need for inpatient -seems improved chf garza ,now off oxygen ,?awaiting dispo for home Time Spent With Patient Time: Total time managing care of this patient today ____ minutes. Quality Stroke Does the patient have a stroke diagnosis?: No VTE Prior VTE?: No VTE Risk Level:: Medical - moderate - high VTE Device Contraindication: Treatment Not Indicated VTE Drug Contraindication: N/A - Med Ordered
[2022-11-11 15:31] VITALS: BP 128/55; PULSE 88; RESP 18; TEMP 37.1; O2SAT 97
[2022-11-11 19:40] VITALS: BP 108/51; PULSE 89; RESP 18; TEMP 37.2; O2SAT 98
[2022-11-11] MEDS: guaiFENesin 100 MG/5 ML LIQUID PO (20:38)
[2022-11-11] MEDS: Melatonin 3 MG TABLET 6 MG PO (20:38)
[2022-11-11] MEDS: Atorvastatin Calcium 40 MG TABLET PO (20:38)
[2022-11-12] VITALS: BP 147/56; PULSE 96; RESP 18; TEMP 36.7; O2SAT 98
[2022-11-12 03:17] VITALS: BP 127/78; PULSE 89; RESP 18; TEMP 37.1; O2SAT 98
[2022-11-12 08:00] VITALS: BP 133/63; PULSE 87; RESP 14; TEMP 36.6; O2SAT 91
[2022-11-12] MEDS: 0.9 % Sodium Chloride Flush 3 ML SYRINGE IVFLUSH (09:31)
[2022-11-12] MEDS: Furosemide 40 MG/4 ML VIAL IVPUSH (09:31)
[2022-11-12] MEDS: Apixaban 5 MG TABLET PO (09:32)
[2022-11-12] MEDS: Multivitamin TABLET 1 TAB PO (09:32)
[2022-11-12] MEDS: Magnesium Oxide 400 MG TABLET PO (09:32)
[2022-11-12] MEDS: Omeprazole 20 MG CAPSULE.DR PO (09:32)
[2022-11-12] MEDS: Metoprolol Tartrate 25 MG TABLET PO (09:32)
--- NOTE | 2022-11-12 10:58 | P.DS_ITS ---
DS: Providers Provider Date of Service: 11/10/22 Date of admission: 11/08/22 02:55 Primary care physician: Edwin Allen MD DS: Diagnosis Discharge Diagnosis (1) Shortness of breath: Status: Resolved (2) Pulmonary edema: Status: Resolved DS: Summary Hospital Course Hospital Course: Chief Complaint: Dyspnea This is a 82-year-old female with pertinent history of chronic diastolic heart failure, persistent atrial fibrillation on Eliquis, CAD status post CABG, essential hypertension, gastroesophageal reflux disease who presents to the emergency department for evaluation of dyspnea.? Of note patient was recently admitted and discharged on 10/26 for acute on chronic diastolic heart failure.? She was discharged on Lasix 20 mg p.o..? Patient states she is compliant with the medications.? She started developing dyspnea about 2 days prior to presentation, it was progressive and worse with ambulation.? Admits PND and leg swelling.? No fever or chills but does have runny nose.? Patient denies chest discomfort, palpitations, abdominal pain, changes in urinary or bowel habits Hospital course: Patient presented with shortness of breath and was found to be hypoxic, negative covid, negative influenza, there was no evidence of pneumonia. Clinical presentation was rather compatible with acute exacerbation of heart failure. She was initiated on IV Lasix, during the course of hospitalization was noted to have a episode of atrial fibrillation with rapid ventricular response with heart rate getting as high as 160. Heart failure was treated with IV Lasix with a good effect hypoxia has resolved. She has diuresed 3.5 L. Lasix dose will be increased from 20 mg daily to 40 mg daily. To avoid salty food. Last echocardiogram from November 2021 showed ejection fraction of 60%. She is presently no longer hypoxic. Oxygen saturation seems fine mostly 92-96% range without supplement oxygen. Can have repeat echocardiogram on outpatient basis. Persistent atrial fibrillation on Eliquis: RVR? resolved. continue metorprolol and Eliquis for stroke prevention. Patient will be going home with VNA and PT. CHF education given, monitor BMP outpatient. Final diangnoses: Acute hypoxic respiratory failure Acute on chronic diastolic heart failure Persistent atrial fibrillation with episode of rapid ventricular response. Time Spent with Patient Time attestation: Total time managing care of this patient today ____ minutes. Discharge coordination time: Greater than 30 minutes Quality: Safe Use of Opioids Does Pt have an Active Cancer Diagnosis on the Problem List?: No Quality: Stroke Does the patient have a stroke diagnosis?: No Physical Exam Vital Signs: Vital Signs: Last Vital Signs Temp 97.2 F 11/10/22 07:48 Pulse 89 11/10/22 07:48 Resp 20 11/10/22 07:48 BP 134/63 11/10/22 07:48 Pulse Ox 99 11/10/22 07:48 O2 Del Method 11/10/22 07:48 O2 Flow Rate 2 11/09/22 23:20 Oxygen Flow Rate 2 11/08/22 13:32 BMI result Body Mass Index 27.4 Const: Other: General: AO X 3, no acute distress Resp: CTA bilateral CVS: S1,S2 IregIreg GI: +BS, NT, no distention Skin: No rash Neuro: motor grossly intact Psych: appropriate affect Discharge Plan Discharge Anticipated Discharge Date/Time: 11/10/22 10:47 Patient Disposition: Home Health Service Discharge Diagnosis: Acute heart failure Referrals: [facility] [Other] - 1 Week ([facility] will resume services 24-48 hours from discharge. SN and PT services have been ordered. [facility] has been notified of the discharge today.) Edwin Allen MD [Primary Care Provider] - 1 Week Discharge Medications: Continued omeprazole 20 mg capsule,delayed release(DR/EC) 20 mg PO BID 90 Days Qty: 180 0RF Eliquis 5 mg tablet 5 mg PO BID Qty: 180 3RF calcium carbonate 500 mg calcium (1,250 mg) Tablet 500 mg PO BID magnesium oxide 400 mg magnesium Tablet 400 mg PO DAILY atorvastatin 40 mg tablet 40 mg PO BEDTIME multivitamin Tablet 1 tab PO DAILY metoprolol tartrate 25 mg tablet 25 mg PO BID 90 Days Qty: 180 3RF Discontinued furosemide [Lasix] 20 mg tablet 20 mg PO DAILY Qty: 30 0RF No Action furosemide 40 mg Tablet 40 mg PO BID@0900,1800 Qty: 60 0RF Protocol: Hold for SBP< HOLD for SBP < : 90 lisinopril 2.5 mg Tablet 2.5 mg PO DAILY Qty: 30 0RF Protocol: Hold for SBP< HOLD for SBP < : 90 Discharge Orders: Discharge Order (Routine); Ordered 11/12/22 Ordered By: Elmer Carver Diet: Low salt diet Activity on Discharge: As tolerated Stand Alone Forms: Patient Portal Discharge page Other Ambulatory Orders: Basic Metabolic Panel (Routine) Timeframe: 1 Week Facility: [facility] - Location: Laboratory Ordered By: Elmer Carver Care Plan Goals: Control of heart failure Health Concerns: Chronic heart failure Atrial fibrilation Plan of Treatment: Take Lasix as directed and follow up with your doctor in a week. Notes that Lasix has been increased from 20 mg to 40 mg. Do not drink in excess to 1.5 L a day avoid salty food. Weight yourself frequently if your weigh goes up by 2Ib notify your doctor Assessment: as above Patient Instructions: Heart Failure (DC) Discharge Date/Time: 11/12/22 15:07
[2022-11-12 11:57] VITALS: BP 134/63; PULSE 74; RESP 12; TEMP 36.7; O2SAT 92
--- NOTE | 2022-11-12 14:10 | MHC.CM.PN ---
IMM 11/10/22 Patient is discharged to home today. [facility] will resume home service SN and PT. Patient son is providing transport home.
--- NOTE | 2022-11-12 14:13 | P.DS_ITS ---
DS: Providers Provider Date of Service: 11/12/22 Date of admission: 11/08/22 02:55 Primary care physician: Edwin Allen MD DS: Diagnosis Discharge Diagnosis (1) Shortness of breath: Status: Acute (2) Pulmonary edema: Status: Acute (3) CHF (congestive heart failure): Status: Acute DS: Summary Hospital Course Hospital Course: Chief Complaint: Dyspnea This is a 82-year-old female with pertinent history of chronic diastolic heart failure, persistent atrial fibrillation on Eliquis, CAD status post CABG, essential hypertension, gastroesophageal reflux disease who presents to the emergency department for evaluation of dyspnea.? Of note patient was recently admitted and discharged on 10/26 for acute on chronic diastolic heart failure.? She was discharged on Lasix 20 mg p.o..? Patient states she is compliant with the medications.? She started developing dyspnea about 2 days prior to presentation, it was progressive and worse with ambulation.? Admits PND and leg swelling.? No fever or chills but does have runny nose.? Patient denies chest discomfort, palpitations, abdominal pain, changes in urinary or bowel habits Hospital course: Patient presented with shortness of breath and was found to be hypoxic, negative covid, negative influenza, there was no evidence of pneumonia. Clinical presentation was rather compatible with acute exacerbation of heart failure. She was initiated on IV Lasix, during the course of hospitalization was noted to have a episode of atrial fibrillation with rapid ventricular response with heart rate getting as high as 160. Heart failure was treated with IV Lasix with a good effect hypoxia has resolved. She has diuresed 3.5 L. Lasix dose will be increased from 20 mg daily to 40 mg daily. To avoid salty food. Last echocardiogram from November 2021 showed ejection fraction of 60%. She is presently no longer hypoxic. Oxygen saturation seems fine mostly 92-96% range without supplement oxygen. Can have repeat echocardiogram on outpatient basis. Persistent atrial fibrillation on Eliquis: RVR? resolved. continue metorprolol and Eliquis for stroke prevention. Patient will be going home with VNA and PT. CHF education given, monitor BMP outpatient. Final diangnoses: Acute hypoxic respiratory failure Acute on chronic diastolic heart failure Persistent atrial fibrillation with episode of rapid ventricular response. Time Spent with Patient Time attestation: Total time managing care of this patient today ____ minutes. Discharge coordination time: Greater than 30 minutes Quality: Safe Use of Opioids Does Pt have an Active Cancer Diagnosis on the Problem List?: No Quality: Stroke Does the patient have a stroke diagnosis?: No Physical Exam Vital Signs: Vital Signs: Last Vital Signs Temp 98.1 F 11/12/22 11:57 Pulse 74 11/12/22 11:57 Resp 12 11/12/22 11:57 BP 134/63 11/12/22 11:57 Pulse Ox 92 11/12/22 11:57 O2 Del Method 11/12/22 11:57 O2 Flow Rate 2 11/10/22 11:14 Oxygen Flow Rate 2 11/08/22 13:32 BMI result Body Mass Index 27.4 General: AO X 3, no acute distress Resp:? CTA bilateral, no rales, no wheezes CVS: S1,S2 IregIreg GI: +BS, NT, no distention Skin: No rash Neuro:? motor grossly intact Psych: appropriate affect DS: Data Imaging Chest x-ray: Radiologist's impression: ITS Impressions Chest X-Ray 11/07/22 22:15 IMPRESSION: . No acute disease. Chest CT 11/08/22 01:33 IMPRESSION: *Findings suspicious for moderate interstitial pulmonary edema. *Trace left pleural effusion. *Chronic stable large hiatal hernia. *Moderate scattered coronary artery calcific atherosclerosis. Discharge Plan Discharge Anticipated Discharge Date/Time: 11/10/22 10:47 Patient Disposition: Home Health Service Discharge Diagnosis: Acute heart failure Referrals: [facility] [Other] - 1 Week ([facility] will resume services 24-48 hours from discharge. SN and PT services have been ordered. [facility] has been notified of the discharge today.) Edwin Allen MD [Primary Care Provider] - 1 Week Discharge Medications: New furosemide [Lasix] 40 mg tablet 40 mg PO DAILY Qty: 30 0RF Continued omeprazole 20 mg capsule,delayed release(DR/EC) 20 mg PO BID 90 Days Qty: 180 0RF Eliquis 5 mg tablet 5 mg PO BID Qty: 180 3RF calcium carbonate 500 mg calcium (1,250 mg) Tablet 500 mg PO BID magnesium oxide 400 mg magnesium Tablet 400 mg PO DAILY atorvastatin 40 mg tablet 40 mg PO BEDTIME multivitamin Tablet 1 tab PO DAILY metoprolol tartrate 25 mg tablet 25 mg PO BID 90 Days Qty: 180 3RF Discontinued furosemide [Lasix] 20 mg tablet 20 mg PO DAILY Qty: 30 0RF Discharge Orders: Discharge Order (Routine); Ordered 11/12/22 Ordered By: Elmer Carver Diet: Low salt diet Activity on Discharge: As tolerated Stand Alone Forms: Patient Portal Discharge page Other Ambulatory Orders: Basic Metabolic Panel (Routine) Timeframe: 1 Week Facility: [facility] - Location: Laboratory Ordered By: Elmer Carver Care Plan Goals: Control of heart failure Health Concerns: Chronic heart failure Atrial fibrilation Plan of Treatment: Take Lasix as directed and follow up with your doctor in a week. Notes that Lasix has been increased from 20 mg to 40 mg. Do not drink in excess to 1.5 L a day avoid salty food. Weight yourself frequently if your weigh goes up by 2Ib notify your doctor Assessment: as above Patient Instructions: Heart Failure (DC)
--- NOTE | 2022-11-12 14:20 | P.F2F_ITS ---
Service Date Service Date: 11/12/22 Encounter Date of encounter: 11/12/22 Encounter: chf excerebation Reasons for Services Signs and symptoms assessed: Shortness of breath or chest pain Reason for custodial: medication management, medication treatment and teach disease management Reason for physical therapy: home safety and mobility, therapeutic exercises, restore joint function, gait/transfer training, assess need for DME, ADL training, energy conservation and other MD Overseeing Care: Edwin Allen Homebound: Leaving the home is medically contraindicated at this time without the asist of a device and/or another person due th the listed conditions above and below. Reason homebound: weakness related to hospital stay Homebound supporting statement: Patient is generalized weak post hospitalization stay ,has multiple comorbid comorbidities-need help to go to appointments and blood draws. Certification: Based on the above findings, I certify that this patient is confined to the home and needs intermittent custodial care, physical therapy and/or speech therapy, or continues to need occupational therapy. The patient is under my care, and I have initiated the establishment of the plan of care. The patient will be followed by a physician who will periodically review the plan of care. Time Spent With Patient Time: Total time managing care of this patient today ____ minutes.
== END 2022-11-12 15:07 | disposition home health service (06) | DRG 291 ==
LOC: HO.ED 11-08 02:30 → HO.EDOVER 11-08 02:59 → HO.IMC 11-08 06:44
PROVIDERS: Internal Medicine; Physician Assistant; Admitting Provider Student in an Organized Health Care Education/Training Program; Emergency Provider Emergency Medicine; PCP Internal Medicine; Visit Provider Internal Medicine
DX: I11.0 Hypertensive heart disease with heart failure (principal); I50.33 Acute on chronic diastolic (congestive) heart failure; J96.01 Acute respiratory failure with hypoxia; I48.19 Other persistent atrial fibrillation; I25.119 Atherosclerotic heart disease of native coronary artery with unspecified angina pectoris; E78.00 Pure hypercholesterolemia, unspecified; I73.9 Peripheral vascular disease, unspecified; K21.9 Gastro-esophageal reflux disease without esophagitis; Z20.822 Contact with and (suspected) exposure to COVID-19; Z95.1 Presence of aortocoronary bypass graft; Z87.891 Personal history of nicotine dependence; Z91.040 Latex allergy status; Z88.8 Allergy status to other drugs, medicaments and biological substances; Z79.01 Long term (current) use of anticoagulants; Z79.899 Other long term (current) drug therapy
CPT/HCPCS: 0241U; 36415; 71045; 71250; 80048; 80053; 81001; 82947; 83735; 83880; 84484; 85025; 93005; 97116; 97162; 99285; J1940; J2405

== ENCOUNTER 2022-11-17 14:48 | Inpatient (IN) | payer MEDICARE, SELFPAY ==
[2022-10-20 12:25] VITALS: BP 116/64; BMI 28.6
--- NOTE | ~2022-11-17 | XR_ITS ---
EXAMINATION: XR CHEST CLINICAL INFORMATION: Fever and cough COMPARISON: Chest CT 11/08/2022 TECHNIQUE: 2 views of the chest were obtained. FINDINGS: Sternal wires and a left atrial appendage clip are present. Again seen is a large large hiatal hernia with the entirety of the stomach in the chest. There may be a portion of the colon in the chest as well. There is a gas fluid level within the hernia. Chronic coarse interstitial prominence is again noted. Linear atelectasis vs. scar seen in the left superior hilum. No new focal consolidation or mass. Normal heart size. Tortuous calcified aorta. No acute or suspicious osseous abnormality. XR/XR chest 2V IMPRESSION: Similar appearance of chronic coarse interstitial prominence. Pulmonary edema was suspected on the prior chest CT 11/08/2022 but a component of chronic airways disease (bronchitis or reactive airways disease) may be present as well. Large hiatal hernia again seen. On the prior chest CT, the entirety of the stomach was within the chest. There may be a segment of the transverse colon within the chest on the current study.
--- NOTE | ~2022-11-17 | CT_ITS ---
EXAMINATION: CT CHEST WITHOUT CONTRAST CLINICAL INFORMATION: Respiratory failure, persistent cough. COMPARISON: CT abdomen 11/18/2022, CT chest noncontrast 11/08/2022, 12/11/2020. Chest radiographs 11/17/2022. TECHNIQUE: Multidetector volumetric CT imaging of the chest is performed without intravenous contrast. Axial MIP volume rendering provided. Sagittal and coronal reformatted images were obtained. This CT examination was performed using dose optimization techniques as appropriate, variously including the following: *Automated exposure control *Adjustment of mA and/or kV according to patient size (this includes techniques or standardized protocols for targeted exams where dose is matched to indication/reason for exam; i.e. extremities or head) *Use of iterative reconstruction technique DLP: 188 mGy-cm FINDINGS: LUNGS: There is interval patchy subpleural airspace opacities posterior and apical right upper lobe when compared with recent CT 11/08/2022. Again, there is some thickening of the bronchiolar markings. There is no interval lobar or segmental airspace consolidation. The accentuated interlobular septal lines noted on prior CT are decreased. Chronic nodular scarring and/or atelectasis anterior medial apex left upper lobe is stable from prior exams. MEDIASTINUM: Small central mediastinal nodes stable. No interval hilar and mediastinal adenopathy or mediastinal mass. Heavily calcified mitral annulus again seen. Thoracic aorta normal in caliber. No pericardial effusion. There is chronic large hiatal hernia again present on the left. Left atrial appendage clip present. CORONARY ARTERY CALCIFICATION: Moderate coronary artery calcification again noted. PLEURA: No pneumothorax. No interval pleural thickening or pleural-based mass. Trace pleural effusions decreased. AXILLA: No lymphadenopathy. UPPER ABDOMEN: No interval acute abnormality. Atrophic left kidney again seen and large hiatal hernia. OSSEOUS STRUCTURES: Multilevel degenerative changes thoracic and upper lumbar spine. Prior median sternotomy. CT/CT chest wo IV con IMPRESSION: 1. Interval patchy subpleural airspace opacities posterior and apical right upper lobe when compared with recent CT 11/08/2022. No interval lobar or segmental airspace consolidation. 2. Decreased interstitial edema when compared with 11/08/2022 with improvement of septal line thickening and decreased trace effusions. 3. Chronic large hiatal hernia.
--- NOTE | ~2022-11-17 | CT_ITS ---
EXAMINATION: CT ABDOMEN AND PELVIS WITHOUT CONTRAST CLINICAL INFORMATION: Elevated LFTs, fever COMPARISON: 05/22/2010 TECHNIQUE: Multidetector volumetric imaging was performed from the superior aspect of the liver through the pubic symphysis. Sagittal and coronal reformatted images were obtained on the technologist's workstation. This CT examination was performed using dose optimization techniques as appropriate, variously including the following: *Automated exposure control *Adjustment of mA and/or kV according to patient size (this includes techniques or standardized protocols for targeted exams where dose is matched to indication/reason for exam; i.e. extremities or head) *Use of iterative reconstruction technique DLP: 600 mGy-cm FINDINGS: LUNG BASES: There is interlobular septal thickening suspicious for interstitial edema along with mild atelectasis. Trace pleural effusions are noted. LIVER, GALLBLADDER, AND BILIARY TREE: The liver is normal in size, shape, and attenuation. No focal hepatic lesion or biliary ductal dilatation is identified. Physiologically distended with mild cholelithiasis noted. No significant gallbladder wall thickening or surrounding inflammation. PANCREAS: Partially atrophic. SPLEEN: Unremarkable. ADRENAL GLANDS: Unremarkable. KIDNEYS AND URETERS: Redemonstrated left upper pole renal cyst; no follow-up recommended. The mid to upper left kidney is severely atrophic. Mildly lobulated contour of the right kidney. No hydronephrosis or obstructing calculus bilaterally. BLADDER: Unremarkable. GASTROINTESTINAL TRACT: There is a large hiatal hernia containing essentially the entire stomach. No evidence of bowel obstruction or abnormal wall thickening. Colonic diverticulosis is noted. The appendix appears collapsed. No free fluid or free air is seen. ABDOMINAL WALL: No significant hernia is appreciated. LYMPH NODES: Normal. VASCULAR: There is extensive atherosclerotic calcification along the aorta. Bilateral iliac stents are noted; patency is not assessed without intravenous contrast. PELVIC VISCERA: Unremarkable. OSSEOUS STRUCTURES: Degenerative changes are noted in the spine. CT/CT abdomen pelvis wo IV con IMPRESSION: 1. No acute findings identified in the abdomen/pelvis. 2. Cholelithiasis. 3. Large hiatal hernia containing essentially the entire stomach. 4. Pulmonary interlobular septal thickening suspicious for interstitial edema. Trace pleural effusions.
--- NOTE | 2022-11-17 14:57 | ED.FEVER ---
HPI - Fever General Chief Complaint: Dyspnea <Sara Lorenzo CNP - Last Filed: 11/17/22 15:24> Stated Complaint: fever <Sara Lorenzo CNP - Last Filed: 11/17/22 15:24> Time Seen by Provider: 11/17/22 16:42 <Sara Lorenzo CNP - Last Filed: 11/17/22 15:24> Source: patient and family <Lisa Lynch MD - Last Filed: 11/17/22 23:41> Mode of arrival: ambulatory <Lisa Lynch MD - Last Filed: 11/17/22 23:41> Limitations: no limitations <Lisa Lynch MD - Last Filed: 11/17/22 23:41> History of Present Illness HPI Narrative: Patient comes to the emergency room accompanied by her family. The family reports that the patient was discharged on November 12 for CHF exacerbation. The report that since the patient got home, her shortness of breath and coughing have gradually been getting worse. Last night, patient had a fever the family reports that the patient has not had any vomiting or diarrhea. But they are concerned that the cough is getting worse and the shortness of breath is also more significant. <Lisa Lynch MD - Last Filed: 11/17/22 23:41> Related Data Home Medications: Home Medications Medication Instructions Recorded Confirmed multivitamin 1 tab PO DAILY 09/04/20 11/17/22 atorvastatin 40 mg tablet 40 mg PO BEDTIME 12/03/21 11/17/22 calcium carbonate 500 mg calcium 500 mg PO BID 12/03/21 11/17/22 (1,250 mg) tablet magnesium oxide 400 mg PO DAILY 12/03/21 11/17/22 Previous Rx's Medication Instructions Recorded metoprolol tartrate 25 mg tablet 25 mg PO BID 90 days #180 tabs 01/01/22 omeprazole 20 mg capsule,delayed 20 mg PO BID 90 days #180 caps 04/01/22 release apixaban 5 mg tablet (Eliquis) 5 mg PO BID #180 tabs 10/16/22 furosemide 40 mg tablet (Lasix) 40 mg PO DAILY #30 tabs 11/10/22 <Sara Lorenzo CNP - Last Filed: 11/17/22 15:24> Allergies/Adverse Reactions: Allergies Allergy/AdvReac Type Severity Reaction Status Date / Time latex Allergy Mild rash Verified 09/30/22 15:15 simvastatin [Simvastatin] Allergy Mild NAUSEA Verified 09/30/22 15:15 <Sara Lorenzo CNP - Last Filed: 11/17/22 15:24> Review of Systems Review of Systems: Constitutional : No Weight loss, No Fever, No Chills, No Night Sweats, No Fatigue, No Malaise ENT/Mouth : No Hearing loss, No Ear Pain, No Nasal Congestion, No Sinus Pain, No Hoarseness, No sore throat, No Rhinorrhea, No Swallowing Difficulty Eyes: No Eye Pain, No Swelling, No Redness, No Foreign Body, No Discharge, No Vision Changes Cardiovascular : No chest pain, complaining of orthopnea, dyspnea on exertion Respiratory : Complaining of worsening cough, sputum production, wheezing Gastrointestinal : No Nausea, No Vomiting, No Diarrhea, No Constipation, No abdominal Pain, No Hematochezia, No Melena Genitourinary : no irregular bleeding, No Dysuria, No Urinary Frequency, No Hematuria, No Urinary Incontinence, No Urgency, No Flank Pain, No Urinary Flow Changes, No Hesitancy Musculoskeletal : No joint pain, No Myalgias, No Joint Swelling Skin : No Skin Lesions, No rash Neuro : No Weakness, No Numbness, No Paresthesias, No Loss of Consciousness, No Dizziness, No Headache Psych : No Anxiety/Panic, No Depression, No SI/HI/AH/VH, No Social Issues, Heme/Lymph: No Bruising, No Bleeding,No Lymphadenopathy Endocrine : No Polyuria, No Polydipsia, No Temperature Intolerance <Lisa Lynch MD - Last Filed: 11/17/22 23:41> [facility] Past Medical History Medical History: Medical History 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 Chronic heart failure with preserved ejection fraction Cognitive impairment Colitis Coronary artery disease of bypass graft of [place] heart with stable angina pectoris Essential hypertension Hypercholesterolemia Peripheral vascular disease Persistent atrial fibrillation Subclavian artery stenosis, left <Sara Lorenzo CNP - Last Filed: 11/17/22 15:24> Surgical History: Surgical History History of coronary artery bypass graft (~06/2020) Status post aorto-coronary artery bypass graft <Sara Lorenzo CNP - Last Filed: 11/17/22 15:24> Family History Family History: Family History Father No problems noted. Mother No problems noted. <Sara Lorenzo CNP - Last Filed: 11/17/22 15:24> Social History Social History: Social History Household Members: Family Housing: Apartment Do you presently have visiting nurse or other home services: Yes (pt visits) Alcohol intake: never Patient Tobacco Use Status: Former Tobacco user Quit Date: 1958 Tobacco use type: Cigarette Smoked in Last 30 Days: No e-Cigarette/Vaping Use: Never Used Second Hand Smoke Exposure: No Use of substances other than those prescribed or required for medical reasons: No Advance Directives: No Advance Directives Information Provided: No service: No Current occupational status: retired Cognitive needs: Yes Hearing needs: No Vision needs: Yes <Sara Lorenzo CNP - Last Filed: 11/17/22 15:24> Physical Exam Vital Signs: Vital Signs: Last Vital Signs Temp 97.9 F 11/17/22 22:20 Pulse 99 11/17/22 22:20 Resp 18 11/17/22 22:20 BP 139/56 L 11/17/22 22:20 Pulse Ox 94 11/17/22 22:20 O2 Del Method 11/17/22 22:20 O2 Flow Rate 2 11/17/22 22:20 BMI result Body Mass Index 29.2 <Sara Lorenzo CNP - Last Filed: 11/17/22 15:24> Vital Signs: Last Vital Signs Temp 97.9 F 11/17/22 22:20 Pulse 99 11/17/22 22:20 Resp 18 11/17/22 22:20 BP 139/56 L 11/17/22 22:20 Pulse Ox 94 11/17/22 22:20 O2 Del Method 11/17/22 22:20 O2 Flow Rate 2 11/17/22 22:20 BMI result Body Mass Index 29.2 <Lisa Lynch MD - Last Filed: 11/17/22 23:41> Const: Other: Appearance: Alert. Oriented X3. No acute distress. Eyes: Pupils equal, round and reactive to light. ENT: Pharynx normal. Neck: Normal inspection. Neck supple. No lymph nodes noted. No crepitus CVS: Normal heart rate and rhythm. Pulses normal. Normal S1 and S2 Respiratory: No respiratory distress, has bilateral crackles. Patient becomes tachypneic with walking Abdomen: Soft and nontender. No rigidity. No distention. Skin: Skin warm and dry. Normal skin color. Normal skin turgor. Extremities: No lower extremity edema. No Lacerations. No Rash Neuro: Oriented X 3. No motor deficit. No sensory deficit. Moving all extremities. No slurred speech. CN 2 through 12 grossly intact Psych: calm, cooperative, normal affect <Lisa Lynch MD - Last Filed: 11/17/22 23:41> Course Course Course Narrative: RME: Patient is an 82-year-old female with past medical history of anemia, CHF, ASCVD, PAD, A-Fib on Eliquis, hyperlipidemia, hypertension who presents to the emergency department for evaluation of fever, productive cough, shortness of breath, generalized weakness, fatigue. Febrile according to visiting nurse services today today at 102, did not take acetaminophen or ibuprofen. Patient was recently admitted to the hospital 11/07/2022 - 11/12/2022 for CHF exacerbation and acute hypoxic respiratory failure, discharged home on Lasix, VNA and home PT services were ordered. No room air hypoxia, currently afebrile, she is however tachypneic, tachycardic. Meeting SIRS criteria, concern for respiratory pathology, ceftriaxone ordered. Plan: Labs, EKG, chest x-ray, urinalysis, lactic acid, blood cultures, relief charge nurse made aware, patient needs to be brought back to main ED. <Sara Lorenzo CNP - Last Filed: 11/17/22 15:24> RME: Patient is an 82-year-old female with past medical history of anemia, CHF, ASCVD, PAD, A-Fib on Eliquis, hyperlipidemia, hypertension who presents to the emergency department for evaluation of fever, productive cough, shortness of breath, generalized weakness, fatigue. Febrile according to visiting nurse services today today at 102, did not take acetaminophen or ibuprofen. Patient was recently admitted to the hospital 11/07/2022 - 11/12/2022 for CHF exacerbation and acute hypoxic respiratory failure, discharged home on Lasix, VNA and home PT services were ordered. No room air hypoxia, currently afebrile, she is however tachypneic, tachycardic. Meeting SIRS criteria, concern for respiratory pathology, ceftriaxone ordered. Plan: Labs, EKG, chest x-ray, urinalysis, lactic acid, blood cultures, relief charge nurse made aware, patient needs to be brought back to main ED. Patient's white blood cell count is elevated. Patient has had fever. When patient arrived, she was started on IV antibiotics, ceftriaxone. I was informed by the patient's nurse that on arrival, walking from the waiting room to the main ED, patient became very short of breath, at some point patient's oxygen saturation was 88% on room air. Patient has been on 2 L since then. At this time, a clear source of infection has not been found. Urinalysis pending. I discussed the patient with Dr. Ardon, given that the patient has elevated LFTs, fever, we will get a CT scan of the abdomen. Patient denies any abdominal pain. <Lisa Lynch MD - Last Filed: 11/17/22 23:41> Medications Administered Generic Name Dose Route Start Last Admin Trade Name Freq PRN Reason Stop Dose Admin Sodium Chloride 1,000 mls @ 250 mls/hr 11/17/22 21:54 11/17/22 22:25 Ns IVCONT 11/18/22 01:53 250 mls/hr .Q4H ONE Administration Discontinued Medications Generic Name Dose Route Start Last Admin Trade Name Freq PRN Reason Stop Dose Admin Acetaminophen 975 mg 11/17/22 16:56 11/17/22 17:29 Acetaminophen 325 Mg Tablet PO 11/17/22 16:57 975 mg ONCE ONE Administration Ceftriaxone Sodium 1 gm/ 50 mls @ 100 mls/hr 11/17/22 15:07 11/17/22 18:23 Sodium Chloride IV 11/17/22 15:36 Infused ONCE ONE Infusion <Sara Lorenzo CNP - Last Filed: 11/17/22 15:24> Medications Administered Generic Name Dose Route Start Last Admin Trade Name Freq PRN Reason Stop Dose Admin Sodium Chloride 1,000 mls @ 250 mls/hr 11/17/22 21:54 11/17/22 22:25 Ns IVCONT 11/18/22 01:53 250 mls/hr .Q4H ONE Administration Discontinued Medications Generic Name Dose Route Start Last Admin Trade Name Gisele PRN Reason Stop Dose Admin Acetaminophen 975 mg 11/17/22 16:56 11/17/22 17:29 Acetaminophen 325 Mg Tablet PO 11/17/22 16:57 975 mg ONCE ONE Administration Ceftriaxone Sodium 1 gm/ 50 mls @ 100 mls/hr 11/17/22 15:07 11/17/22 18:23 Sodium Chloride IV 11/17/22 15:36 Infused ONCE ONE Infusion <Lisa Lynch MD - Last Filed: 11/17/22 23:41> Medical Decision Making Lab Data Result Diagrams: : 11/17/22 17:11 11/17/22 17:11 <Sara Lorenzo CNP - Last Filed: 11/17/22 15:24> Labs: Lab Results 11/17/22 11/17/22 11/17/22 Range/Units 17:11 17:11 17:11 WBC 13.3 H (4.8-10.8) X10*3/uL RBC 4.15 L (4.20-5.50) X10*6/uL Hgb 11.8 L (12.0-16.0) g/dl Hct 36.0 L (37.0-47.0) % MCV 86.7 (80.0-98.0) fL MCH 28.4 (27.0-33.0) pg MCHC 32.8 (31.0-35.0) g/dl RDW 15.3 (11.0-16.0) % Plt Count 286 (160-400) X10*3/uL MPV 9.7 (9.4-12.3) fL Immature Gran % (Auto) 0.6 H (0.0-0.4) % Neut % (Auto) 83.0 H (45-73) % Lymph % (Auto) 7.5 L (20-40) % [place] % (Auto) 8.2 (2-11) % Eos % (Auto) 0.2 (0-4) % Baso % (Auto) 0.5 (0-2) % Lymph # (Auto) 1.0 L (1.2-4.9) X10*3/uL [place] # (Auto) 1.1 (0.1-1.2) X10*3/uL Eos # (Auto) 0.0 (0.0-0.4) X10*3/uL Baso # (Auto) 0.1 (0.0-0.2) X10*3/uL Abs Immat Gran (auto) 0.08 H (0.00-0.03) X10*3/uL Absolute Neuts (auto) 11.0 H (2.0-8.3) x10*3/uL Absolute Nucleated RBC 0.000 (0.0-0.012) X10*3/uL Nucleated RBC % (auto) 0.0 (0.0-0.2) /100WBC Sodium 133 L (135-145) mmol/L Potassium 3.5 (3.3-5.1) mmol/L Chloride 91 L (96-108) mmol/L Carbon Dioxide 29 (22-29) mmol/L Anion Gap 17 (12-20) BUN 18 H (9-16) mg/dL Creatinine 1.19 (0.5-1.4) mg/dL Estim Creat Clear Calc 31.9 Estimated GFR 44 Random Glucose 141 H (60-115) mg/dL Lactic Acid (0.5-2.0) mmol/L Calcium 9.0 (8.4-10.2) mg/dL Magnesium 2.3 (1.6-2.6) mg/dL Total Bilirubin 2.4 H (0.0-1.0) mg/dL AST 35 H (5-31) U/L ALT 16 (0-31) U/L Alkaline Phosphatase 130 H (39-117) U/L Troponin I High Sens (<3.5-17.0) ng/L B-Natriuretic Peptide 1588 H (<100) pg/mL Total Protein 8.0 (6.5-8.0) g/dL Albumin 3.6 (3.5-5.0) g/dL COVID-19 ([facility]) (Negative) COVID-19 Clin Com Influenza Type A ([facility]) (Negative) Influenza Type B (MARY) (Negative) Influenza A & B Note 11/17/22 11/17/22 11/17/22 Range/Units 17:11 17:11 17:22 WBC (4.8-10.8) X10*3/uL RBC (4.20-5.50) X10*6/uL Hgb (12.0-16.0) g/dl Hct (37.0-47.0) % MCV (80.0-98.0) fL MCH (27.0-33.0) pg MCHC (31.0-35.0) g/dl RDW (11.0-16.0) % Plt Count (160-400) X10*3/uL MPV (9.4-12.3) fL Immature Gran % (Auto) (0.0-0.4) % Neut % (Auto) (45-73) % Lymph % (Auto) (20-40) % [place] % (Auto) (2-11) % Eos % (Auto) (0-4) % Baso % (Auto) (0-2) % Lymph # (Auto) (1.2-4.9) X10*3/uL [place] # (Auto) (0.1-1.2) X10*3/uL Eos # (Auto) (0.0-0.4) X10*3/uL Baso # (Auto) (0.0-0.2) X10*3/uL Abs Immat Gran (auto) (0.00-0.03) X10*3/uL Absolute Neuts (auto) (2.0-8.3) x10*3/uL Absolute Nucleated RBC (0.0-0.012) X10*3/uL Nucleated RBC % (auto) (0.0-0.2) /100WBC Sodium (135-145) mmol/L Potassium (3.3-5.1) mmol/L Chloride (96-108) mmol/L Carbon Dioxide (22-29) mmol/L Anion Gap (12-20) BUN (9-16) mg/dL Creatinine (0.5-1.4) mg/dL Estim Creat Clear Calc Estimated GFR Random Glucose (60-115) mg/dL Lactic Acid 1.7 (0.5-2.0) mmol/L Calcium (8.4-10.2) mg/dL Magnesium (1.6-2.6) mg/dL Total Bilirubin (0.0-1.0) mg/dL AST (5-31) U/L ALT (0-31) U/L Alkaline Phosphatase (39-117) U/L Troponin I High Sens 66.0 H* (<3.5-17.0) ng/L B-Natriuretic Peptide (<100) pg/mL Total Protein (6.5-8.0) g/dL Albumin (3.5-5.0) g/dL COVID-19 ([facility]) (Negative) COVID-19 Clin Com Influenza Type A ([facility]) Negative (Negative) Influenza Type B (MARY) Negative (Negative) Influenza A & B Note See Note 11/17/22 Range/Units 17:22 WBC (4.8-10.8) X10*3/uL RBC (4.20-5.50) X10*6/uL Hgb (12.0-16.0) g/dl Hct (37.0-47.0) % MCV (80.0-98.0) fL MCH (27.0-33.0) pg MCHC (31.0-35.0) g/dl RDW (11.0-16.0) % Plt Count (160-400) X10*3/uL MPV (9.4-12.3) fL Immature Gran % (Auto) (0.0-0.4) % Neut % (Auto) (45-73) % Lymph % (Auto) (20-40) % [place] % (Auto) (2-11) % Eos % (Auto) (0-4) % Baso % (Auto) (0-2) % Lymph # (Auto) (1.2-4.9) X10*3/uL [place] # (Auto) (0.1-1.2) X10*3/uL Eos # (Auto) (0.0-0.4) X10*3/uL Baso # (Auto) (0.0-0.2) X10*3/uL Abs Immat Gran (auto) (0.00-0.03) X10*3/uL Absolute Neuts (auto) (2.0-8.3) x10*3/uL Absolute Nucleated RBC (0.0-0.012) X10*3/uL Nucleated RBC % (auto) (0.0-0.2) /100WBC Sodium (135-145) mmol/L Potassium (3.3-5.1) mmol/L Chloride (96-108) mmol/L Carbon Dioxide (22-29) mmol/L Anion Gap (12-20) BUN (9-16) mg/dL Creatinine (0.5-1.4) mg/dL Estim Creat Clear Calc Estimated GFR Random Glucose (60-115) mg/dL Lactic Acid (0.5-2.0) mmol/L Calcium (8.4-10.2) mg/dL Magnesium (1.6-2.6) mg/dL Total Bilirubin (0.0-1.0) mg/dL AST (5-31) U/L ALT (0-31) U/L Alkaline Phosphatase (39-117) U/L Troponin I High Sens (<3.5-17.0) ng/L B-Natriuretic Peptide (<100) pg/mL Total Protein (6.5-8.0) g/dL Albumin (3.5-5.0) g/dL COVID-19 ([facility]) Negative (Negative) COVID-19 Clin Com See Note Influenza Type A ([facility]) (Negative) Influenza Type B ([facility]) (Negative) Influenza A & B Note <Sara Lorenzo, [employer] - Last Filed: 11/17/22 15:24> Lab Results 11/17/22 11/17/22 11/17/22 Range/Units 17:11 17:11 17:11 WBC 13.3 H (4.8-10.8) X10*3/uL RBC 4.15 L (4.20-5.50) X10*6/uL Hgb 11.8 L (12.0-16.0) g/dl Hct 36.0 L (37.0-47.0) % MCV 86.7 (80.0-98.0) fL MCH 28.4 (27.0-33.0) pg MCHC 32.8 (31.0-35.0) g/dl RDW 15.3 (11.0-16.0) % Plt Count 286 (160-400) X10*3/uL MPV 9.7 (9.4-12.3) fL Immature Gran % (Auto) 0.6 H (0.0-0.4) % Neut % (Auto) 83.0 H (45-73) % Lymph % (Auto) 7.5 L (20-40) % [place] % (Auto) 8.2 (2-11) % Eos % (Auto) 0.2 (0-4) % Baso % (Auto) 0.5 (0-2) % Lymph # (Auto) 1.0 L (1.2-4.9) X10*3/uL [place] # (Auto) 1.1 (0.1-1.2) X10*3/uL Eos # (Auto) 0.0 (0.0-0.4) X10*3/uL Baso # (Auto) 0.1 (0.0-0.2) X10*3/uL Abs Immat Gran (auto) 0.08 H (0.00-0.03) X10*3/uL Absolute Neuts (auto) 11.0 H (2.0-8.3) x10*3/uL Absolute Nucleated RBC 0.000 (0.0-0.012) X10*3/uL Nucleated RBC % (auto) 0.0 (0.0-0.2) /100WBC Sodium 133 L (135-145) mmol/L Potassium 3.5 (3.3-5.1) mmol/L Chloride 91 L (96-108) mmol/L Carbon Dioxide 29 (22-29) mmol/L Anion Gap 17 (12-20) BUN 18 H (9-16) mg/dL Creatinine 1.19 (0.5-1.4) mg/dL Estim Creat Clear Calc 31.9 Estimated GFR 44 Random Glucose 141 H (60-115) mg/dL Lactic Acid (0.5-2.0) mmol/L Calcium 9.0 (8.4-10.2) mg/dL Magnesium 2.3 (1.6-2.6) mg/dL Total Bilirubin 2.4 H (0.0-1.0) mg/dL AST 35 H (5-31) U/L ALT 16 (0-31) U/L Alkaline Phosphatase 130 H (39-117) U/L Troponin I High Sens (<3.5-17.0) ng/L B-Natriuretic Peptide 1588 H (<100) pg/mL Total Protein 8.0 (6.5-8.0) g/dL Albumin 3.6 (3.5-5.0) g/dL COVID-19 ([facility]) (Negative) COVID-19 Clin Com Influenza Type A ([facility]) (Negative) Influenza Type B ([facility]) (Negative) Influenza A & B Note 11/17/22 11/17/22 11/17/22 Range/Units 17:11 17:11 17:22 WBC (4.8-10.8) X10*3/uL RBC (4.20-5.50) X10*6/uL Hgb (12.0-16.0) g/dl Hct (37.0-47.0) % MCV (80.0-98.0) fL MCH (27.0-33.0) pg MCHC (31.0-35.0) g/dl RDW (11.0-16.0) % Plt Count (160-400) X10*3/uL MPV (9.4-12.3) fL Immature Gran % (Auto) (0.0-0.4) % Neut % (Auto) (45-73) % Lymph % (Auto) (20-40) % [place] % (Auto) (2-11) % Eos % (Auto) (0-4) % Baso % (Auto) (0-2) % Lymph # (Auto) (1.2-4.9) X10*3/uL [place] # (Auto) (0.1-1.2) X10*3/uL Eos # (Auto) (0.0-0.4) X10*3/uL Baso # (Auto) (0.0-0.2) X10*3/uL Abs Immat Gran (auto) (0.00-0.03) X10*3/uL Absolute Neuts (auto) (2.0-8.3) x10*3/uL Absolute Nucleated RBC (0.0-0.012) X10*3/uL Nucleated RBC % (auto) (0.0-0.2) /100WBC Sodium (135-145) mmol/L Potassium (3.3-5.1) mmol/L Chloride (96-108) mmol/L Carbon Dioxide (22-29) mmol/L Anion Gap (12-20) BUN (9-16) mg/dL Creatinine (0.5-1.4) mg/dL Estim Creat Clear Calc Estimated GFR Random Glucose (60-115) mg/dL Lactic Acid 1.7 (0.5-2.0) mmol/L Calcium (8.4-10.2) mg/dL Magnesium (1.6-2.6) mg/dL Total Bilirubin (0.0-1.0) mg/dL AST (5-31) U/L ALT (0-31) U/L Alkaline Phosphatase (39-117) U/L Troponin I High Sens 66.0 H* (<3.5-17.0) ng/L B-Natriuretic Peptide (<100) pg/mL Total Protein (6.5-8.0) g/dL Albumin (3.5-5.0) g/dL COVID-19 ([facility]) (Negative) COVID-19 Clin Com Influenza Type A ([facility]) Negative (Negative) Influenza Type B ([facility]) Negative (Negative) Influenza A & B Note See Note 11/17/22 Range/Units 17:22 WBC (4.8-10.8) X10*3/uL RBC (4.20-5.50) X10*6/uL Hgb (12.0-16.0) g/dl Hct (37.0-47.0) % MCV (80.0-98.0) fL MCH (27.0-33.0) pg MCHC (31.0-35.0) g/dl RDW (11.0-16.0) % Plt Count (160-400) X10*3/uL MPV (9.4-12.3) fL Immature Gran % (Auto) (0.0-0.4) % Neut % (Auto) (45-73) % Lymph % (Auto) (20-40) % [place] % (Auto) (2-11) % Eos % (Auto) (0-4) % Baso % (Auto) (0-2) % Lymph # (Auto) (1.2-4.9) X10*3/uL [place] # (Auto) (0.1-1.2) X10*3/uL Eos # (Auto) (0.0-0.4) X10*3/uL Baso # (Auto) (0.0-0.2) X10*3/uL Abs Immat Gran (auto) (0.00-0.03) X10*3/uL Absolute Neuts (auto) (2.0-8.3) x10*3/uL Absolute Nucleated RBC (0.0-0.012) X10*3/uL Nucleated RBC % (auto) (0.0-0.2) /100WBC Sodium (135-145) mmol/L Potassium (3.3-5.1) mmol/L Chloride (96-108) mmol/L Carbon Dioxide (22-29) mmol/L Anion Gap (12-20) BUN (9-16) mg/dL Creatinine (0.5-1.4) mg/dL Estim Creat Clear Calc Estimated GFR Random Glucose (60-115) mg/dL Lactic Acid (0.5-2.0) mmol/L Calcium (8.4-10.2) mg/dL Magnesium (1.6-2.6) mg/dL Total Bilirubin (0.0-1.0) mg/dL AST (5-31) U/L ALT (0-31) U/L Alkaline Phosphatase (39-117) U/L Troponin I High Sens (<3.5-17.0) ng/L B-Natriuretic Peptide (<100) pg/mL Total Protein (6.5-8.0) g/dL Albumin (3.5-5.0) g/dL COVID-19 ([facility]) Negative (Negative) COVID-19 Clin Com See Note Influenza Type A ([facility]) (Negative) Influenza Type B ([facility]) (Negative) Influenza A & B Note <Lisa Lynch MD - Last Filed: 11/17/22 23:41> Critical Care Time Critical Care Time Critical Care Time: Yes <Lisa Lynch MD - Last Filed: 11/17/22 23:41> Total Critical Care Time: 60 <Lisa Lynch MD - Last Filed: 11/17/22 23:41> Attestation: I have personally provided critical care time. Time includes review of lab data, radiology results, discussion with consultants, and monitoring for potential decompensation. Intervention performed as documented. <Lisa Lynch MD - Last Filed: 11/17/22 23:41> Discharge Plan Discharge Clinical Impression: CHF (congestive heart failure), Fever of unknown origin, Elevated LFTs <Sara Lorenzo CNP - Last Filed: 11/17/22 15:24> Patient Disposition: Admitted As Inpatient <Sara Lorenzo CNP - Last Filed: 11/17/22 15:24>
--- NOTE | 2022-11-17 15:01 | ECG_ITS ---
Test Reason : sob weakness Blood Pressure : / mmHG Vent. Rate : 099 BPM Atrial Rate : 000 BPM P-R Int : 000 ms QRS Dur : 126 ms QT Int : 322 ms P-R-T Axes : 000 -41 096 degrees QTc Int : 413 ms Atrial fibrillation with premature ventricular or aberrantly conducted complexes Left axis deviation Left bundle branch block Abnormal ECG When compared with ECG of 08-NOV-2022 00:31, Atrial fibrillation Present Referred By: Sara Lorenzo Electronically Signed By:Oumar Vanessa
[2022-11-17 15:03] VITALS: BP 126/57; PULSE 104; RESP 24; TEMP 37.3; O2SAT 95; BMI 29.2
[2022-11-17 16:00] VITALS: O2SAT 88
[2022-11-17 16:44] VITALS: BP 135/54; PULSE 104; RESP 25; TEMP 38.2; O2SAT 94
[2022-11-17 17:19] LABS: MANUAL DIFF FLAG NO
[2022-11-17 17:21] LABS: Basophils Absolute Auto 0.1 X10*3/uL (0.0-0.2); Basophils Percent Auto 0.5 % (0-2); Eosinophils Percent Auto 0.2 % (0-4); Hemoglobin 11.8 g/dl (12.0-16.0); Imm Gran Abs Auto 0.08 X10*3/uL (0.00-0.03); Imm Gran Pct Auto 0.6 % (0.0-0.4); Lymphocytes Percent Auto 7.5 % (20-40); Mean Corpuscular HGB Conc 32.8 g/dl (31.0-35.0); Mean Corpuscular Hemoglobin 28.4 pg (27.0-33.0); Mean Corpuscular Volume 86.7 fL (80.0-98.0); Mean Platelet Volume 9.7 fL (9.4-12.3); Monocytes Absolute Auto 1.1 X10*3/uL (0.1-1.2); Monocytes Percent Auto 8.2 % (2-11); Platelet Count 286 X10*3/uL (160-400); Red Blood Count 4.15 X10*6/uL (4.20-5.50); Red Cell Distribution Width 15.3 % (11.0-16.0); White Blood Count 13.3 X10*3/uL (4.8-10.8)
[2022-11-17] MEDS: cefTRIAXone sodium 1 GM in 0.9 % Sodium Chloride 50 ML IV (17:28)
[2022-11-17] MEDS: Acetaminophen 325 MG TABLET 975 MG PO (17:29)
[2022-11-17 17:32] LABS: Lactic Acid 1.7 mmol/L (0.5-2.0)
[2022-11-17 17:39] LABS: Alanine Aminotransferase 16 U/L (0-31); Albumin Level 3.6 g/dL (3.5-5.0); Alkaline Phosphatase 130 U/L (39-117); Anion Gap 17 (12-20); Aspartate Amino Transferase 35 U/L (5-31); Bilirubin Total 2.4 mg/dL (0.0-1.0); Blood Urea Nitrogen 18 mg/dL (9-16); Carbon Dioxide 29 mmol/L (22-29); Chloride 91 mmol/L (96-108); Creatinine Clr Calc Pharmacy 31.9; Estimated Glomerular Filt Rate 44; Glucose Random 141 mg/dL (60-115); Magnesium 2.3 mg/dL (1.6-2.6); Potassium 3.5 mmol/L (3.3-5.1); Sodium 133 mmol/L (135-145)
[2022-11-17 17:40] LABS: B Type Natriuretic Peptide 1588 pg/mL (<100)
[2022-11-17 17:44] LABS: COVID-19 Test Negative (Negative); IDNOW Serial# 16C4AD1C; IDNOW Serial# BCCEAD1C; Influenza A Negative (Negative); Influenza B2 Negative (Negative)
[2022-11-17 18:31] VITALS: BP 153/45; PULSE 97; RESP 22; TEMP 37.6; O2SAT 94
[2022-11-17 20:44] VITALS: BP 145/56; PULSE 100; RESP 19; TEMP 37.3; O2SAT 93
--- NOTE | 2022-11-17 21:22 | PHA.MEDREC ---
Pharmacy Consult ? Medication Reconciliation Pharmacy has completed the medication reconciliation.
[2022-11-17 22:20] VITALS: BP 139/56; PULSE 99; RESP 18; TEMP 36.6; O2SAT 94
[2022-11-17] MEDS: 0.9 % Sodium Chloride 1,000 ML 250 ML IVCONT (22:25)
[2022-11-17 23:41] LABS: Appearance Urine Turbid; Color Urine Dark Yellow; Glucose Urine UA Negative (Negative); Leukocyte Esterase Urine Large (3+) (Negative); Nitrite Urine Negative (Negative); PH 5.5 (5.0-9.0); UMIC TRIGGER UACC YES; Urine Blood Moderate (2+) (Negative); Urine Ketones Negative (Negative); Urine Protein 100 (2+) mg/dL (Neg-Trace)
[2022-11-18] VITALS (7 sets, daily range): BP systolic 116–146; BP diastolic 45–64; PULSE 92–109; RESP 14–22; TEMP 36.5–37.2; O2SAT 94–99
[2022-11-18 00:07] LABS: Bacteria Urine 1+ (None Seen); UACC Culture Trigger YES; WBC Urine >50 /HPF (0-5)
--- NOTE | 2022-11-18 02:36 | PM.IMHP ---
History of Present Illness Date of Service: 11/18/22 Chief Complaint: sob 82F pmh chronic diastolic chf, chronic afib, cad s/p cabg, HTN, severe hiatal hernia with barretts esophogus, presented with sob. patient was admitted to [facility] 11/08/22-11/12/22 for CHF, was diuresed 3.5L and home lasix increased from 20mg to 40mg. patient reports overall feeling better than initial presentation, but still feels very sob, worse on exertion, associated with dry cough. pateint was seen by VNA, found to be dyspneic and hypoxic so sent to ED. in ED noted to have fevers, elevated bnp, trop, cxr with signs of congestion, fevers. Review of Systems Review of Systems: Constitutional: Denies fever at home, denies Chills Eyes: denies blurry vision ENT: denies sore throat CVS: denies chest pain Respiratory: dyspnea GI: no abdominal pain : denies dysuria MSK: denies neck pain Skin: denies rash Neuro: denies specific motor weakness Psych: denies suicidal ideation Endocrine: denies heat/cold intolerance Hematologic: denies easy bleeding Allergy: denies hives FORMERLY [facility], 1928–1983 Medical History 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 Chronic heart failure with preserved ejection fraction Cognitive impairment Colitis Coronary artery disease of bypass graft of [place] heart with stable angina pectoris Essential hypertension Hypercholesterolemia Peripheral vascular disease Persistent atrial fibrillation Subclavian artery stenosis, left Family History Father No problems noted. Mother No problems noted. Surgical History History of coronary artery bypass graft (~06/2020) Status post aorto-coronary artery bypass graft Social History Household Members: Family Housing: Apartment Do you presently have visiting nurse or other home services: Yes (pt visits) Alcohol intake: never Patient Tobacco Use Status: Former Tobacco user Quit Date: 1959 Tobacco use type: Cigarette Smoked in Last 30 Days: No e-Cigarette/Vaping Use: Never Used Second Hand Smoke Exposure: No Use of substances other than those prescribed or required for medical reasons: No Advance Directives: No Advance Directives Information Provided: No service: No Current occupational status: retired Cognitive needs: Yes Hearing needs: No Vision needs: Yes Meds Allergies Allergy/AdvReac Type Severity Reaction Status Date / Time latex Allergy Mild rash Verified 09/30/22 15:15 simvastatin [Simvastatin] Allergy Mild NAUSEA Verified 09/30/22 15:15 Active Medications: Current Medications Albuterol/Ipratropium (Albuterol/Iprat 2.5/0.5mg 3 Ml Ampul.Neb) 3 ml INHALE RQ4H PRN PRN Reason: sob Apixaban (Apixaban 5 Mg Tablet) 5 mg PO BID KARLIE Atorvastatin Calcium (Atorvastatin Calcium 40 Mg Tablet) 40 mg PO BEDTIME KARLIE Azithromycin (Azithromycin 500 Mg Tablet) 500 mg PO Q24H KARLIE Calcium Carbonate (Calcium Carbonate 500 Mg Tablet) 500 mg PO BID KARLIE Furosemide (Furosemide 40 Mg/4 Ml Vial) 40 mg IVPUSH BID@0900,1800 KARLIE; Protocol Ceftriaxone Sodium 1 gm/ (Sodium Chloride) 50 mls @ 100 mls/hr IV Q24H KARLIE Magnesium Oxide (Magnesium Oxide 400 Mg Tablet) 400 mg PO DAILY KARLIE Metoprolol Tartrate (Metoprolol Tartrate 25 Mg Tablet) 25 mg PO BID KARLIE; Protocol Multivitamins/Vitamin C (Multivitamin Tablet) 1 tab PO DAILY KARLIE Omeprazole (Omeprazole 20 Mg Capsule.Dr) 20 mg PO BID [facility] Pharmacy Consult (Consult Rx Perform Med Rec) 1 each MISCELLANE ONCE PRN PRN Reason: Consult order Home Medications Medication Instructions Recorded Confirmed Last Taken Type multivitamin 1 tab PO DAILY 09/04/20 11/17/22 11/07/22 History atorvastatin 40 mg tablet 40 mg PO BEDTIME 12/03/21 11/17/22 11/07/22 History calcium carbonate 500 mg calcium 500 mg PO BID 12/03/21 11/17/22 11/07/22 History (1,250 mg) tablet magnesium oxide 400 mg PO DAILY 12/03/21 11/17/22 11/07/22 History Physical Exam Vital Signs and Narrative: Vital Signs: Last Vital Signs Temp 97.8 F 11/18/22 02:20 Pulse 97 11/18/22 02:20 Resp 16 11/18/22 02:20 BP 133/49 L 11/18/22 02:20 Pulse Ox 96 11/18/22 02:20 O2 Del Method 11/18/22 02:20 O2 Flow Rate 2 11/18/22 00:11 BMI result Body Mass Index 29.2 General: no acute distress HEENT: atraumatic Neck: normal to visual inspection CVS: S1, S2, irregular, murmur Resp: wheezes bilateral Chest: non tender GI: soft, non tender, non distended : no CVA tenderness Skin: no rashes Extremities: no edema Neuro: Oriented X3, grossly intact Psych: cooperative Results Labs CBC and Chem 7: 11/17/22 17:11 11/17/22 17:11 Labs: Laboratory Results - last 24 hr 11/17/22 11/17/22 11/17/22 17:11 17:11 17:11 MCV 86.7 MCH 28.4 MCHC 32.8 RDW 15.3 Plt Count 286 MPV 9.7 Immature Gran % (Auto) 0.6 H Neut % (Auto) 83.0 H Lymph % (Auto) 7.5 L [place] % (Auto) 8.2 Eos % (Auto) 0.2 Baso % (Auto) 0.5 Lymph # (Auto) 1.0 L [place] # (Auto) 1.1 Eos # (Auto) 0.0 Baso # (Auto) 0.1 Abs Immat Gran (auto) 0.08 H Absolute Neuts (auto) 11.0 H Absolute Nucleated RBC 0.000 Nucleated RBC % (auto) 0.0 Anion Gap 17 Estim Creat Clear Calc 31.9 Estimated GFR 44 Random Glucose 141 H Lactic Acid Calcium 9.0 Magnesium 2.3 Total Bilirubin 2.4 H AST 35 H ALT 16 Alkaline Phosphatase 130 H Troponin I High Sens B-Natriuretic Peptide 1588 H Total Protein 8.0 Albumin 3.6 Urine Color Urine Appearance Urine pH Ur Specific [place] Urine Protein Urine Glucose (UA) Urine Ketones Urine Blood Urine Nitrite Ur Leukocyte Esterase Urine RBC Urine WBC Ur Squamous Epith Cells Urine Bacteria Hyaline Casts COVID-19 (WU) COVID-19 Clin Com Influenza Type A (MARY) Influenza Type B (MARY) Influenza A & B Note 11/17/22 11/17/22 11/17/22 17:11 17:11 17:22 MCV MCH MCHC RDW Plt Count MPV Immature Gran % (Auto) Neut % (Auto) Lymph % (Auto) [place] % (Auto) Eos % (Auto) Baso % (Auto) Lymph # (Auto) [place] # (Auto) Eos # (Auto) Baso # (Auto) Abs Immat Gran (auto) Absolute Neuts (auto) Absolute Nucleated RBC Nucleated RBC % (auto) Anion Gap Estim Creat Clear Calc Estimated GFR Random Glucose Lactic Acid 1.7 Calcium Magnesium Total Bilirubin AST ALT Alkaline Phosphatase Troponin I High Sens 66.0 H* B-Natriuretic Peptide Total Protein Albumin Urine Color Urine Appearance Urine pH Ur Specific [place] Urine Protein Urine Glucose (UA) Urine Ketones Urine Blood Urine Nitrite Ur Leukocyte Esterase Urine RBC Urine WBC Ur Squamous Epith Cells Urine Bacteria Hyaline Casts COVID-19 (WU) COVID-19 Clin Com Influenza Type A (MARY) Negative Influenza Type B (MARY) Negative Influenza A & B Note See Note 11/17/22 11/17/22 17:22 23:34 MCV MCH MCHC RDW Plt Count MPV Immature Gran % (Auto) Neut % (Auto) Lymph % (Auto) [place] % (Auto) Eos % (Auto) Baso % (Auto) Lymph # (Auto) [place] # (Auto) Eos # (Auto) Baso # (Auto) Abs Immat Gran (auto) Absolute Neuts (auto) Absolute Nucleated RBC Nucleated RBC % (auto) Anion Gap Estim Creat Clear Calc Estimated GFR Random Glucose Lactic Acid Calcium Magnesium Total Bilirubin AST ALT Alkaline Phosphatase Troponin I High Sens B-Natriuretic Peptide Total Protein Albumin Urine Color Dark Yellow Urine Appearance Turbid Urine pH 5.5 Ur Specific [place] 1.020 Urine Protein 100 (2+) H Urine Glucose (UA) Negative Urine Ketones Negative Urine Blood Moderate (2+) H Urine Nitrite Negative Ur Leukocyte Esterase Large (3+) H Urine RBC 11-20 H Urine WBC >50 H Ur Squamous Epith Cells 11-20 Urine Bacteria 1+ Hyaline Casts 3-5 COVID-19 (WU) Negative COVID-19 Clin Com See Note Influenza Type A (MARY) Influenza Type B (MARY) Influenza A & B Note Imaging Radiologist's Impressions: Impressions Chest X-Ray 11/17/22 16:15 IMPRESSION: Similar appearance of chronic coarse interstitial prominence. Pulmonary edema was suspected on the prior chest CT 11/08/2022 but a component of chronic airways disease (bronchitis or reactive airways disease) may be present as well. Large hiatal hernia again seen. On the prior chest CT, the entirety of the stomach was within the chest. There may be a segment of the transverse colon within the chest on the current study. Abdomen/Pelvis CT 11/18/22 00:55 IMPRESSION: 1. No acute findings identified in the abdomen/pelvis. 2. Cholelithiasis. 3. Large hiatal hernia containing essentially the entire stomach. 4. Pulmonary interlobular septal thickening suspicious for interstitial edema. Trace pleural effusions. Assessment and Plan (1) CHF (congestive heart failure): Status: Acute Plan 82F pmh chronic diastolic chf, chronic afib, cad s/p cabg, HTN, severe hiatal hernia with barretts esophogus, presented with sob, found to have fevers, hypoxia. SIRS unclear source will treat empirically with rocephin and azithro for PNA and UTI follow up cultures acute hypoxic respiratory failure due to acute on chronic diastolic chf iv lasix check echo possible compoenent of pneumonia, will treat with empiric steroids patient wheezing, can use duonebs as needed permanent afib eliquis, metoprolol cad s/p cabg, PVD eliquis, metoprolol, statin barretts ppi dvt prophylaxis - on eliquis full code patient with hypoxia and SIRS, requiring iv lasix and abx with close monitoring, at risk for further decompensation due to CAD/pvd, advanced age and frailty, therefore, expected to require atleast 2 midnights inpatient. Time Spent With Patient Time: Total time managing care of this patient today ____ minutes. Quality Stroke Does the patient have a stroke diagnosis?: No VTE Prior VTE?: No VTE Risk Level:: Medical - moderate - high VTE Device Contraindication: Treatment Not Indicated VTE Drug Contraindication: N/A - Med Ordered
[2022-11-18 03:13] LABS: Troponin-I High Sensitivity 54.1 ng/L (<3.5-17.0)
[2022-11-18 06:02] LABS: Hematocrit 30.1 % (37.0-47.0); Hemoglobin 9.9 g/dl (12.0-16.0); Mean Corpuscular HGB Conc 32.9 g/dl (31.0-35.0); Mean Corpuscular Hemoglobin 28.9 pg (27.0-33.0); Mean Corpuscular Volume 87.8 fL (80.0-98.0); Mean Platelet Volume 9.8 fL (9.4-12.3); Platelet Count 237 X10*3/uL (160-400); Red Blood Count 3.43 X10*6/uL (4.20-5.50); Red Cell Distribution Width 15.2 % (11.0-16.0); White Blood Count 11.4 X10*3/uL (4.8-10.8)
[2022-11-18 06:27] LABS: Alanine Aminotransferase 14 U/L (0-31); Albumin Level 2.9 g/dL (3.5-5.0); Alkaline Phosphatase 108 U/L (39-117); Anion Gap 14 (12-20); Aspartate Amino Transferase 26 U/L (5-31); Bilirubin Direct 0.8 mg/dL (0.0-0.5); Bilirubin Total 1.7 mg/dL (0.0-1.0); Blood Urea Nitrogen 17 mg/dL (9-16); Carbon Dioxide 28 mmol/L (22-29); Chloride 98 mmol/L (96-108); Creatinine Clr Calc Pharmacy 42.2; Estimated Glomerular Filt Rate > 60; Glucose Random 117 mg/dL (60-115); Potassium 3.5 mmol/L (3.3-5.1); Sodium 136 mmol/L (135-145); Total Protein 6.3 g/dL (6.5-8.0)
--- NOTE | 2022-11-18 10:06 | PM.EVENT ---
Event Note Date of Service: 11/18/22 Event Note: Day Team follow up Pt seen and examined this AM. States she is tired and would like to sleep. Saturating well on 2L, wean as tolerated Continue steroids and diuretics; on empiric antibiotics for pneumonia/UTI coverage -- f/u cultures Remainder per plan outlined in H&P. Time Spent With Patient Time: Total time managing care of this patient today ____ minutes.
--- NOTE | 2022-11-18 10:28 | PC.NURSE ---
pt had come over from main ED earlier this am and this RN discovered that her straight cath tubing was still inside her bladder, it was put in at 23:30 last night. 150cc of dark urine noted in bag. Dr Scherer and charge nurse danika were both notified.
[2022-11-18] MEDS: Azithromycin 500 MG TABLET PO (11:04)
[2022-11-18] MEDS: Omeprazole 20 MG CAPSULE.DR PO ×2 (11:04→20:18)
[2022-11-18] MEDS: Furosemide 40 MG/4 ML VIAL IVPUSH ×2 (11:04→18:03)
[2022-11-18] MEDS: Magnesium Oxide 400 MG TABLET PO (11:05)
[2022-11-18] MEDS: Apixaban 5 MG TABLET PO ×2 (11:05→20:18)
[2022-11-18] MEDS: Metoprolol Tartrate 25 MG TABLET PO ×2 (11:05→20:18)
[2022-11-18] MEDS: Multivitamin TABLET 1 TAB PO (11:05)
[2022-11-18] MEDS: 0.9 % Sodium Chloride Flush 3 ML SYRINGE IVFLUSH ×2 (11:07→18:03)
--- NOTE | 2022-11-18 12:55 | PC.NURSE ---
dr cowart at bedside to discuss questions with family and pt. nad. having intermittent cough with some slight blood tinge, provider aware.
[2022-11-18] MEDS: cefTRIAXone sodium 1 GM in 0.9 % Sodium Chloride 50 ML IV (18:03)
--- NOTE | 2022-11-18 19:14 | PC.NURSE ---
Addendum entered by Muriel Nguyễn RN 11/19/22 07:04: report given to SANTOS Franco Addendum entered by Muriel Nguyễn RN 11/18/22 20:16: pt is alert and oriented resting in bed no signs of acute distress notice breathing equally unlabored pt on continuos cardiac monitoring Original Note: report received from SANTOS Brown
[2022-11-18] MEDS: Atorvastatin Calcium 40 MG TABLET PO (20:18)
--- NOTE | 2022-11-18 21:46 | MHC.CM.PN ---
IMM 11/18. Met with A&Ox4 patient. Was recently at [facility] 11/08-11/12 for CHF and discharged with [facility] AGUILAR. Lives with son, Arnaldo. Has 5 children and much family support. Is mostly independent in son's home. Uses a cane intermittently. Fully vaccinated for Covid and 2 boosters. HCP on file. HCP#1/son Orlando Brooke ([phone]) and HCP #2/daughter Aida Calderon ([phone]). D/C plan: Home with VNA. Referral to [facility] to follow. Family to transport. CM to follow for d/c needs.
[2022-11-19 04:38] VITALS: BP 126/62; PULSE 89; RESP 17; O2SAT 94
--- NOTE | 2022-11-19 07:00 | CA_ITS ---
Transthoracic Echocardiogram Patient (Last, First, Middle): Bethany Brooke G Gender: Female Date of : 1940 Age: 82 Procedure Date: 11/19/2022 Procedure Type: Transthoracic Echocardiogram Location: ER Height: 152. cm Weight: 68.04 kg BSA: 1.65 m2 Heart Rate: 99 bpm BP: 144 / 59 mmHg Composite Layup Worker: BRI Referring MD: Juma Scherer MD Director Of Operations For Therapy: Vaughn Guevara MD Symptoms: chf, to eval lv function, multiple admissions Study Quality: Fair ECG Rhythm: Atrial Fibrillation Conclusions: - 1. Normal LV systolic function 2. Mildly increased RV size with moderate to severe RV systolic dysfunction 3. Severe biatrial enlargement 4. Severe mitral calcification with severe mitral regurgitation 5. Mildly elevated right ventricular systolic pressure 6. Mildly dilated ascending aorta 7. No gross pericardial effusion Findings Left Ventricle Normal left ventricular size, thickness, and systolic function. The visually estimated ejection fraction is between 55-60%. Diastolic function is indeterminate on the basis of available data. Right Ventricle Mildly increased right ventricular cavity size. There is moderate to severely decreased right ventricular systolic function. Atria The left atrium is severely dilated. Interatrial shunt cannot be excluded. The right atrium is severely dilated. Aortic Valve The aortic valve was not well visualized. There is mild calcification of the aortic valve. There is no aortic valve regurgitation. Mitral Valve There is mild anterior and severe posterior mitral leaflet thickening. There is severe mitral annular calcification. There is severe mitral valve regurgitation. Pulmonic Valve The pulmonic valve is likely normal. There is mild pulmonic valve regurgitation. Tricuspid Valve Likely normal tricuspid valve structure and function. There is mild tricuspid valve regurgitation. Normal right atrial pressure. Mild pulmonary hypertension is present. Great Vessels The pulmonary artery was not well visualized. There is mild dilatation of the ascending aorta measuring 3.90 cm. Venous The inferior vena cava is normal in size and collapses greater than 50% with inspiration. Pericardium/Pleural There is no evidence of pericardial effusion. Prior Study Comparison Changes noted compared to prior study dated: 12/04/2021. mitral regurgitation appears to be severe Measurements 2D Linear Measurements IVSd: 0.74 0.6-0.9/0.6-1.0 cm LVIDd: 3.88 3.9-5.3/4.2-5.9 cm LVIDd Index: 2.35 2.4-3.2/2.2-3.1 cm/m2 LVIDs: 2.97 2.0-3.6 cm LVPWd: 1.18 0.7-1.1 cm LA Diam: 5.00 2.7-3.8/3.0-4.0 cm LAIDs Index: 3.03 1.5-2.3 cm/m2 LV Mass: 141.96 67-162/88-224 g LV Mass Index: 86.04 43-95/49-115 g/m2 LVOT Diam: 1.90 3.0+(-)1.3 cm 2D Systolic Function EF 4C: 58.80 >55% EF 2C: 59.10 >55% EF BiP: 57.50 >55% Mitral Valve MV VTI: 0.48 MV Pk Shon: 2.54 MV Mn Shon: 1.24 MV Pk Grad: 26.00 MV Mn Grad: 8.00 MV Pk E: 2.15 MV Decel Time: 130.00 E'Lateral: 6.20 E'Medial: 4.13 E/E' Med: 52.10 E/E' Lat: 34.70 PHT: 38.00 MVA PHT: 5.79 MVA Continuity: 0.91 Decel [place]: 16.56 MR Vol - PW Dopp: 29.44 MR VTI: 1.28 MR ERO: 23.00 MR Alias Shon: 0.37 MR RAD: 0.70 Aortic Valve AoV Pk Shon: 1.36 AoV Mn Shon: 0.96 AoV VTI: 0.23 AoV Pk Grad: 7.00 Aov Mn Grad: 4.00 BASSAM Cont.VTI: 1.90 LVOT LVOT Pk Shon: 0.92 LVOT Mn Shon: 0.66 LVOT VTI: 0.16 LVOT Pk Grad: 3.00 LVOT Mn Grad: 2.00 LVOT Diam: 1.90 LVOT Area: 2.84 Diastolic Function MV Pk E: 2.15 E'Medial: 4.13 E/E' Med: 52.10 E' Laterial: 6.20 E/E' Lat: 34.70 Right Ventricle TAPSE (mm): 10.70 TVS' Shon: 5.78 Tricuspid Valve TR Pk Shon: 3.10 TR Pk Grad: 38.00 RA Press: 3.00 RVSP: 41.00 Great Vessels Aorta Sinus of Valsalva: 3.30 2.0-3.5 cm Ao Asc: 3.90 2.1-3.4 cm Pulmonary Valve PV Pk Shon: 0.64 Peak PV Grad: 2.00 Updated in Other Vendor System with Status of Final Vaughn Guevara MD electronically signed on 11/19/2022 3:47:19 PM with status of Final
[2022-11-19 08:57] VITALS: BP 123/53; PULSE 96; RESP 20; TEMP 36.9
[2022-11-19 09:03] LABS: Anion Gap 14 (12-20); Blood Urea Nitrogen 18 mg/dL (9-16); Calcium 8.3 mg/dL (8.4-10.2); Carbon Dioxide 31 mmol/L (22-29); Chloride 95 mmol/L (96-108); Creatinine Clr Calc Pharmacy 36.8; Estimated Glomerular Filt Rate 51; Glucose Random 157 mg/dL (60-115); Potassium 3.1 mmol/L (3.3-5.1); Sodium 137 mmol/L (135-145)
[2022-11-19] MEDS: Magnesium Oxide 400 MG TABLET PO (09:57)
[2022-11-19] MEDS: Apixaban 5 MG TABLET PO ×2 (09:57→20:30)
[2022-11-19] MEDS: Multivitamin TABLET 1 TAB PO (09:57)
[2022-11-19] MEDS: Omeprazole 20 MG CAPSULE.DR PO ×2 (09:57→20:30)
[2022-11-19] MEDS: Metoprolol Tartrate 25 MG TABLET PO ×2 (09:57→20:30)
[2022-11-19] MEDS: 0.9 % Sodium Chloride Flush 3 ML SYRINGE IVFLUSH (09:57)
[2022-11-19] MEDS: Furosemide 40 MG/4 ML VIAL IVPUSH ×2 (09:57→17:24)
--- NOTE | 2022-11-19 10:50 | HO.PM.IMPN ---
Subjective Subjective Date of Service: 11/19/22 Interval History: seen and examined this AM reports severe bouts of coughing and generalized malaise Review of Systems Negative except HPI/interval history. Physical Exam Vital Signs: Vital Signs: Last Vital Signs Temp 98.4 F 11/19/22 08:57 Pulse 96 11/19/22 08:57 Resp 20 11/19/22 08:57 BP 123/53 L 11/19/22 08:57 Pulse Ox 94 11/19/22 04:38 O2 Del Method 11/19/22 08:57 O2 Flow Rate 2 11/19/22 04:38 BMI result Body Mass Index 29.2 Const: Other: General - no acute distress, appears comfortable Cardiovascular - regular rate and rhythm, S1-S2 Lungs - scattered wheezing b/l Abdomen - soft, nontender, no rebound or guarding Neuro - awake and alert, no focal deficits Objective Data Active Medications Albuterol/Ipratropium (Albuterol/Iprat 2.5/0.5mg 3 Ml Ampul.Neb) 3 ml INHALE RQ4H PRN PRN Reason: sob Apixaban (Apixaban 5 Mg Tablet) 5 mg PO BID [facility] Last Admin: 11/19/22 09:57 Dose: 5 mg Documented By: FRANCISCO Atorvastatin Calcium (Atorvastatin Calcium 40 Mg Tablet) 40 mg PO BEDTIME [facility] Last Admin: 11/18/22 20:18 Dose: 40 mg Documented By: ANAID-ANICL Azithromycin (Azithromycin 500 Mg Tablet) 500 mg PO Q24H [facility] Last Admin: 11/18/22 11:04 Dose: 500 mg Documented By: ADRIANA Calcium Carbonate (Calcium Carbonate 500 Mg Tablet) 500 mg PO BID [facility] Last Admin: 11/19/22 09:57 Dose: 500 mg Documented By: FRANCISCO Furosemide (Furosemide 40 Mg/4 Ml Vial) 40 mg IVPUSH BID@0900,1800 [facility]; Protocol Last Admin: 11/19/22 09:57 Dose: 40 mg Documented By: FRANCISCO Guaifenesin/Dextromethorphan (Guaifenesin Dm 100/10/5 Ml 5 Ml Syrup) 5 ml PO Q6H [facility] Ceftriaxone Sodium 1 gm/ (Sodium Chloride) 50 mls @ 100 mls/hr IV Q24H [facility] Last Infusion: 11/18/22 20:19 Dose: 0 mls/hr Documented By: JULESANICL Magnesium Oxide (Magnesium Oxide 400 Mg Tablet) 400 mg PO DAILY [facility] Last Admin: 11/19/22 09:57 Dose: 400 mg Documented By: FRANCISCO Metoprolol Tartrate (Metoprolol Tartrate 25 Mg Tablet) 25 mg PO BID [facility]; Protocol Last Admin: 11/19/22 09:57 Dose: 25 mg Documented By: FRANCISCO Multivitamins/Vitamin C (Multivitamin Tablet) 1 tab PO DAILY [facility] Last Admin: 11/19/22 09:57 Dose: 1 tab Documented By: FRANCISCO Omeprazole (Omeprazole 20 Mg Capsule.) 20 mg PO BID [facility] Last Admin: 11/19/22 09:57 Dose: 20 mg Documented By: FRANCISCO Pharmacy Consult (Consult Rx Perform Med Rec) 1 each MISCELLANE ONCE PRN PRN Reason: Consult order Sodium Chloride (0.9 % Sodium Chloride Flush 3 Ml Syringe) 3 ml IVFLUSH QSHIFT [facility] Last Admin: 11/19/22 09:57 Dose: 3 ml Documented By: FRANCISCO Labs CBC & Chem 7: 11/18/22 05:51 11/19/22 08:23 Labs: Laboratory Results - last 24 hr 11/19/22 08:23 Anion Gap 14 Estim Creat Clear Calc 36.8 Estimated GFR 51 Random Glucose 157 H Calcium 8.3 L Microbiology Microbiology Results: Microbiology 11/18/22 06:32 Urine Culture - Final Urine Catheterized - Kerns Catheter No growth. 11/17/22 17:11 Blood Culture - Preliminary Blood - Venous No growth after 24 hours. 11/17/22 17:11 Blood Culture - Preliminary Blood - Venous No growth after 24 hours. Assessment and Plan (1) CHF (congestive heart failure): Status: Acute Plan 82F pmh chronic diastolic chf, chronic afib, cad s/p cabg, HTN, severe hiatal hernia with barretts esophogus, presented with sob, found to have fevers, hypoxia. SIRS unclear source - flu/rsv/covid negative; will check respiratory pathogen panel and CT chest on empiric rx for pneumonia -- day #2 follow up cultures -- urine negative, blood negative to date acute hypoxic respiratory failure due to acute on chronic diastolic chf slowly improving iv lasix check echo consult cardiology hypoK po potassium permanent afib eliquis, metoprolol cad s/p cabg, PVD eliquis, metoprolol, statin barretts ppi dvt prophylaxis - on eliquis full code pt with continued respiratory symptoms requiring iv antibiotics and iv diuretics as well as cardiology evaluation Time Spent With Patient Time: Total time managing care of this patient today ____ minutes. Quality Stroke Does the patient have a stroke diagnosis?: No VTE Prior VTE?: No VTE Risk Level:: Medical - moderate - high VTE Device Contraindication: Treatment Not Indicated VTE Drug Contraindication: N/A - Med Ordered
[2022-11-19] MEDS: guaiFENesin DM 100/10/5 ML 5 ML SYRUP PO ×2 (12:17→17:24)
[2022-11-19] MEDS: Potassium Chloride Packet 20 MEQ PACKET 40 MEQ PO (12:17)
[2022-11-19] MEDS: Azithromycin 500 MG TABLET PO ×2 (12:18)
[2022-11-19 13:31] VITALS: BP 144/59; PULSE 105; RESP 16; O2SAT 98
--- NOTE | 2022-11-19 15:09 | PM.CNCAR ---
History of Present Illness History of Present Illness Date of Service: 11/19/22 Chief complaint: fevers, sob, chf Narrative: Pleasant 82-year-old female who is presenting with shortness of breath. She has been experiencing shortness of breath and cough over the last few days. She has known history or peripheral vascular disease and coronary artery bypass surgery in the past. She has been coughing phlegm. We were asked to assess her for heart failure. She has some signs of congestive heart failure also. She is denying any chest discomfort. Main complaint is shortness of breath currently. She also has background of chronic atrial fibrillation and has been on apixaban. Overall feeling better with antibiotics and diuretics. Echo pending. 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 Mother No problems noted. Surgical History Surgical History History of coronary artery bypass graft (~06/2020) Status post aorto-coronary artery bypass graft Social History Social History Household Members: Family Housing: House Do you presently have visiting nurse or other home services: Yes (pt visits) Alcohol intake: never Patient Tobacco Use Status: Former Tobacco user Quit Date: 1959 Tobacco use type: Cigarette e-Cigarette/Vaping Use: Never Used Second Hand Smoke Exposure: No service: No Current occupational status: retired Cognitive needs: Yes Hearing needs: No Vision needs: Yes Meds Allergies Allergy/AdvReac Type Severity Reaction Status Date / Time latex Allergy Mild rash Verified 09/30/22 15:15 simvastatin [Simvastatin] Allergy Mild NAUSEA Verified 09/30/22 15:15 Active Medications: Current Medications Albuterol/Ipratropium (Albuterol/Iprat 2.5/0.5mg 3 Ml Ampul.Neb) 3 ml INHALE RQ4H PRN PRN Reason: sob Apixaban (Apixaban 5 Mg Tablet) 5 mg PO BID [facility] Last Admin: 11/19/22 09:57 Dose: 5 mg Atorvastatin Calcium (Atorvastatin Calcium 40 Mg Tablet) 40 mg PO BEDTIME [facility] Last Admin: 11/18/22 20:18 Dose: 40 mg Azithromycin (Azithromycin 500 Mg Tablet) 500 mg PO Q24H [facility] Last Admin: 11/19/22 12:18 Dose: 500 mg Calcium Carbonate (Calcium Carbonate 500 Mg Tablet) 500 mg PO BID [facility] Last Admin: 11/19/22 09:57 Dose: 500 mg Furosemide (Furosemide 40 Mg/4 Ml Vial) 40 mg IVPUSH BID@0900,1800 [facility]; Protocol Last Admin: 11/19/22 09:57 Dose: 40 mg Guaifenesin/Dextromethorphan (Guaifenesin Dm 100/10/5 Ml 5 Ml Syrup) 5 ml PO Q6H [facility] Last Admin: 11/19/22 12:17 Dose: 5 ml Ceftriaxone Sodium 1 gm/ (Sodium Chloride) 50 mls @ 100 mls/hr IV Q24H [facility] Last Infusion: 11/18/22 20:19 Dose: Infused Magnesium Oxide (Magnesium Oxide 400 Mg Tablet) 400 mg PO DAILY [facility] Last Admin: 11/19/22 09:57 Dose: 400 mg Metoprolol Tartrate (Metoprolol Tartrate 25 Mg Tablet) 25 mg PO BID [facility]; Protocol Last Admin: 11/19/22 09:57 Dose: 25 mg Multivitamins/Vitamin C (Multivitamin Tablet) 1 tab PO DAILY [facility] Last Admin: 11/19/22 09:57 Dose: 1 tab Omeprazole (Omeprazole 20 Mg Capsule.) 20 mg PO BID [facility] Last Admin: 11/19/22 09:57 Dose: 20 mg Pharmacy Consult (Consult Rx Perform Med Rec) 1 each MISCELLANE ONCE PRN PRN Reason: Consult order Sodium Chloride (0.9 % Sodium Chloride Flush 3 Ml Syringe) 3 ml IVFLUSH QSHIFT [facility] Last Admin: 11/19/22 09:57 Dose: 3 ml Home Medications Medication Instructions Recorded Confirmed Last Taken Type multivitamin 1 tab PO DAILY 09/04/20 11/17/22 11/07/22 History atorvastatin 40 mg tablet 40 mg PO BEDTIME 12/03/21 11/17/22 11/07/22 History calcium carbonate 500 mg calcium 500 mg PO BID 12/03/21 11/17/22 11/07/22 History (1,250 mg) tablet magnesium oxide 400 mg PO DAILY 12/03/21 11/17/22 11/07/22 History Physical Exam Vital Signs: Vital Signs: Last Vital Signs Temp 98.4 F 11/19/22 08:57 Pulse 105 H 11/19/22 13:31 Resp 16 11/19/22 13:31 BP 144/59 H 11/19/22 13:31 Pulse Ox 98 11/19/22 13:31 O2 Del Method 11/19/22 08:57 O2 Flow Rate 2 11/19/22 04:38 BMI result Body Mass Index 29.2 GENERAL APPEARANCE: in no acute distress, pleasant. NECK: no carotid bruit, positive jugular venous distention. SKIN: no suspicious lesions, warm and dry. HEART: Holosystolic murmur at the apex, irregular rate and rhythm. LUNGS: Bilateral wheezes and rhonchi. ABDOMEN: soft, nontender. EXTREMITIES: no edema. PERIPHERAL PULSES: equal. NEUROLOGIC: No gross deficits, AAO X 3 Objective Labs and Meds Result diagrams: 11/18/22 05:51 11/19/22 08:23 Lab results: Laboratory Results - last 24 hr 11/19/22 08:23 Sodium 137 Potassium 3.1 L Chloride 95 L Carbon Dioxide 31 H Anion Gap 14 BUN 18 H Creatinine 1.03 Estim Creat Clear Calc 36.8 Estimated GFR 51 Random Glucose 157 H Calcium 8.3 L Assessment and Plan (1) CHF (congestive heart failure): Status: Acute Plan Pleasant 82-year-old female who is presenting with congestive heart failure. She had known history of bypass surgery in the past as well as peripheral vascular disease. She is a former smoker and is presenting with pneumonia. She is on antibiotics. Clinically she appears to be heart failure also. Quite frequently infections can exacerbate congestive heart failure. I think we gently diurese her along with giving her antibiotics. Will check echocardiogram to assess the LV function. He has no chest pain and no concern for acute coronary syndrome currently. Thank you for allowing me to participate in the care of your patient. Please feel free to contact me if you have any questions. Time Spent With Patient Time: Total time managing care of this patient today ____ minutes. Procedures Date of Service Date of Service: 11/19/22
[2022-11-19 16:51] VITALS: BP 133/67; PULSE 78; RESP 18; TEMP 37; O2SAT 97
[2022-11-19] MEDS: cefTRIAXone sodium 1 GM in 0.9 % Sodium Chloride 50 ML IV (17:24)
[2022-11-19 19:31] VITALS: BP 148/67; PULSE 106; RESP 18; TEMP 37; O2SAT 99
[2022-11-19] MEDS: Atorvastatin Calcium 40 MG TABLET PO (20:30)
[2022-11-20] VITALS (7 sets, daily range): BP systolic 107–151; BP diastolic 52–70; PULSE 62–102; RESP 12–20; TEMP 36.3–37.1; O2SAT 92–99
[2022-11-20] MEDS: guaiFENesin DM 100/10/5 ML 5 ML SYRUP PO ×2 (05:10→22:13)
--- NOTE | 2022-11-20 06:20 | PM.EVENT ---
Event Note Date of Service: 11/20/22 Event Note: multiple attempts were made to place PIV on pt overnight with no success. order place for Midline Time Spent With Patient Time: Total time managing care of this patient today ____ minutes.
[2022-11-20] MEDS: Magnesium Oxide 400 MG TABLET PO (08:41)
[2022-11-20] MEDS: Apixaban 5 MG TABLET PO ×2 (08:41→20:51)
[2022-11-20] MEDS: Omeprazole 20 MG CAPSULE.DR PO ×2 (08:41→20:54)
[2022-11-20] MEDS: Metoprolol Tartrate 25 MG TABLET PO ×2 (08:41→20:51)
[2022-11-20] MEDS: Multivitamin TABLET 1 TAB PO (08:41)
--- NOTE | 2022-11-20 14:26 | HO.PM.IMPN ---
Subjective Subjective Date of Service: 11/20/22 Interval History: cc: sob interval history: a bit better Cardiovascular Cardiovascular: Reports no additional cardiovascular complaints Respiratory Respiratory: Reports no additional respiratory complaints Physical Exam Vital Signs: Vital Signs: Last Vital Signs Temp 98.1 F 11/20/22 11:25 Pulse 102 H 11/20/22 11:25 Resp 12 11/20/22 11:25 BP 139/65 11/20/22 11:25 Pulse Ox 92 11/20/22 11:25 O2 Del Method 11/20/22 11:25 O2 Flow Rate 3 11/20/22 11:25 BMI result Body Mass Index 29.2 General: AO X 3, no acute distress Resp: diminished bilateral, no accessory muscles used CVS: S1,S2,RRR GI: soft, non tender, non distended Neuro: motor grossly intact, alert Psych: appropriate affect, appropriate insight Objective Data Active Medications Albuterol/Ipratropium (Albuterol/Iprat 2.5/0.5mg 3 Ml Ampul.Neb) 3 ml INHALE RQ4H PRN PRN Reason: sob Apixaban (Apixaban 5 Mg Tablet) 5 mg PO BID [facility] Last Admin: 11/20/22 08:41 Dose: 5 mg Documented By: OTONIEL Atorvastatin Calcium (Atorvastatin Calcium 40 Mg Tablet) 40 mg PO BEDTIME [facility] Last Admin: 11/19/22 20:30 Dose: 40 mg Documented By: JUSTINE Azithromycin (Azithromycin 500 Mg Tablet) 500 mg PO Q24H [facility] Last Admin: 11/19/22 12:18 Dose: 500 mg Documented By: FRANCISCO Calcium Carbonate (Calcium Carbonate 500 Mg Tablet) 500 mg PO BID [facility] Last Admin: 11/20/22 08:41 Dose: 500 mg Documented By: OTONIEL Cefuroxime Axetil (Cefuroxime Axetil 500 Mg Tablet) 500 mg PO Q12H [facility] Furosemide (Furosemide 40 Mg Tablet) 40 mg PO BID@0900,1800 [facility]; Protocol Guaifenesin/Dextromethorphan (Guaifenesin Dm 100/10/5 Ml 5 Ml Syrup) 5 ml PO Q6H [facility] Last Admin: 11/20/22 11:25 Dose: Not Given Documented By: OTONIEL Non-Admin Reason: Patient Refused Magnesium Oxide (Magnesium Oxide 400 Mg Tablet) 400 mg PO DAILY [facility] Last Admin: 11/20/22 08:41 Dose: 400 mg Documented By: ANAID-SOFFA Metoprolol Tartrate (Metoprolol Tartrate 25 Mg Tablet) 25 mg PO BID [facility]; Protocol Last Admin: 11/20/22 08:41 Dose: 25 mg Documented By: ANAID-SOFFA Multivitamins/Vitamin C (Multivitamin Tablet) 1 tab PO DAILY [facility] Last Admin: 11/20/22 08:41 Dose: 1 tab Documented By: ANAID-OLMAN Omeprazole (Omeprazole 20 Mg Capsule.) 20 mg PO BID [facility] Last Admin: 11/20/22 08:41 Dose: 20 mg Documented By: ANAID-OLMAN Pharmacy Consult (Consult Rx Perform Med Rec) 1 each MISCELLANE ONCE PRN PRN Reason: Consult order Sodium Chloride (0.9 % Sodium Chloride Flush 3 Ml Syringe) 3 ml IVFLUSH QSHIFT [facility] Last Admin: 11/20/22 07:01 Dose: Not Given Documented By: OTONIEL Non-Admin Reason: See Note Labs CBC & Chem 7: 11/18/22 05:51 11/19/22 08:23 Microbiology Microbiology Results: Microbiology 11/17/22 17:11 Blood Culture - Preliminary Blood - Venous No growth after 48 hours. 11/17/22 17:11 Blood Culture - Preliminary Blood - Venous No growth after 48 hours. 11/18/22 06:32 Urine Culture - Final Urine Catheterized - Kerns Catheter No growth. Assessment and Plan (1) CHF (congestive heart failure): Status: Acute Plan 82F pmh chronic diastolic chf, chronic afib, cad s/p cabg, HTN, severe hiatal hernia with barretts esophogus, presented with sob, found to have fevers, hypoxia. SIRS unclear source - flu/rsv/covid negative; follow up respiratory pathogen panel and CT chest on empiric rx for pneumonia -- day #3 - changed to po due to inability to obtain iv access follow up cultures -- urine negative, blood negative to date acute hypoxic respiratory failure due to acute on chronic diastolic chf lasix 40mg po bid hypoK po potassium, monitor permanent afib eliquis, metoprolol cad s/p cabg, PVD eliquis, metoprolol, statin barretts ppi dvt prophylaxis - on eliquis full code reason for continued hospitalization:still requiring o2 increased from baseline, close monitoring while diuresing. Quality Stroke Does the patient have a stroke diagnosis?: No VTE Prior VTE?: No VTE Risk Level:: Medical - moderate - high VTE Device Contraindication: Treatment Not Indicated VTE Drug Contraindication: N/A - Med Ordered
--- NOTE | 2022-11-20 14:33 | P.CDIC_ITS ---
CDI Concurrent Query Documentation Clarification: PHYSICIAN'S DOCUMENTATION REQUEST Date of Query: 11/20/22 1436 Patient Name: Bethany Brooke Admit Date: 11/18/22 Dear Doctor, A review of the medical record indicates additional documentation may be needed. Please review below and update the documentation accordingly. Clinical Indicators: Documentation on progress note dated 11/19/22 included the diagnosis of SIRS. Is there an additional diagnosis that provides further specificity: The patient's infectious clinical indicators include: Risk Factors/Clinical Indicators/Treatments POA/TREAT/RESOLVED/RULE OUT Per provider note on 11/20: SIRS unclear source - flu/rsv/covid negative; follow up respiratory pathogen panel and CT chest on empiric rx for pneumonia Other indicators: -WBCs on 11/17: 13.3 -TEMP on 11/17: 100.7 -HR 11/18: 108 11/19: 106 -RR 11/17: 25 11/18: 22 Recognized standard criteria for this condition and other infectious definitions includes: Sepsis Systemic manifestations of infection, with 2 or more SIRS criteria which include: * Fever > 100.4?F or hypothermia < 96.8?F * Leukocytosis ? WBC > 12,000 or leukopenia, WBC < 4,000, or > 10% bands * Tachycardia- > 90 beats/minute * Tachypnea- RR > 20 breaths/minute or PaCO2 < 32mmHg Source: Merck Manual 2013 Documentation should include the known or suspected organism, and the underlying infection, such as UTI or pneumonia Severe Sepsis Sepsis with associated acute organ dysfunction, such as renal or respiratory failure Documentation should indicate the association between the sepsis and the organ dysfunction Septic Shock Severe sepsis with associated with circulatory failure, evidenced by hypotension and hypoperfusion Based on the above information and the recognized standard for sepsis, could you please clarify in the Progress Notes if this diagnoses is still accurate and reflective of the patient's condition to ensure quality of the medical record. * Sepsis is/was present and is a clinical diagnosis based on (please include this additional support in the medical record) * After study (the condition) has been ruled out * Other (please specify) * Unable to determine Use of terms such as suspected, likely, concern for, or probable (associated with a specific diagnosis that is being evaluated, monitored, or treated as if it exists) are acceptable and can be coded in the inpatient setting, when documented at the time of discharge. Thank you, Yeny El MS, RN, CCRN Extension: [phone] Please use your independent medical judgment in providing your response. THIS QUERY IS PART OF THE PERMANENT MEDICAL RECORD
[2022-11-20] MEDS: Furosemide 40 MG TABLET PO (17:30)
--- NOTE | 2022-11-20 19:31 | PM.PNCARD ---
Subjective Subjective Date of Service: 11/20/22 Interval history: Patient seen examined at bedside. She is saying her breathing is improving. Echocardiography has shown severe mitral regurgitation and moderate RV dysfunction. Physical Exam Vital Signs: Last Vital Signs Temp 97.4 F 11/20/22 19:03 Pulse 88 11/20/22 19:03 Resp 17 11/20/22 19:03 BP 110/52 L 11/20/22 19:03 Pulse Ox 95 11/20/22 19:03 O2 Del Method 11/20/22 19:03 O2 Flow Rate 2 11/20/22 19:03 BMI result Body Mass Index 29.2 GENERAL APPEARANCE: in no acute distress, pleasant. NECK: no carotid bruit, positive jugular venous distention. SKIN: no suspicious lesions, warm and dry. HEART: Holosystolic murmur at the apex, irregular rate and rhythm. LUNGS: no significant wheezes today. ABDOMEN: soft, nontender. EXTREMITIES: no edema. PERIPHERAL PULSES: equal. NEUROLOGIC: No gross deficits, AAO X 3 Objective Labs and Meds Result diagrams: 11/18/22 05:51 11/19/22 08:23 Progress Note: A&P Assessment and plan (1) CHF (congestive heart failure): Status: Acute (2) Persistent atrial fibrillation: Status: Acute (3) Mitral valve regurgitation: Status: Acute Plan 82 female with severe MR and RV dysfunction. Admitted with CHF. Diuresing and improving. Still overloaded. c/w diuretics. Adding low dose charmaine inhibitor. Will follow along. Time Spent With Patient Time: Total time managing care of this patient today ____ minutes. Progress Note: Quality Stroke Does the patient have a stroke diagnosis?: No Procedures Date of Service Date of Service: 11/20/22
[2022-11-20] MEDS: Atorvastatin Calcium 40 MG TABLET PO (20:51)
[2022-11-21 04:00] VITALS: BP 134/67; PULSE 101; RESP 20; TEMP 37.2; O2SAT 97
[2022-11-21] MEDS: guaiFENesin DM 100/10/5 ML 5 ML SYRUP PO ×3 (05:33→16:09)
[2022-11-21 06:45] LABS: Hematocrit 28.8 % (37.0-47.0); Hemoglobin 9.3 g/dl (12.0-16.0); Mean Corpuscular HGB Conc 32.3 g/dl (31.0-35.0); Mean Corpuscular Hemoglobin 28.4 pg (27.0-33.0); Mean Corpuscular Volume 87.8 fL (80.0-98.0); Platelet Count 229 X10*3/uL (160-400); Red Blood Count 3.28 X10*6/uL (4.20-5.50)
[2022-11-21 07:00] LABS: Anion Gap 13 (12-20); Blood Urea Nitrogen 19 mg/dL (9-16); Calcium 8.1 mg/dL (8.4-10.2); Carbon Dioxide 31 mmol/L (22-29); Chloride 93 mmol/L (96-108); Creatinine Clr Calc Pharmacy 44.6; Estimated Glomerular Filt Rate > 60; Glucose Fasting 130 mg/dL (60-99); Magnesium 1.9 mg/dL (1.6-2.6); Potassium 3.1 mmol/L (3.3-5.1); Sodium 134 mmol/L (135-145)
[2022-11-21 08:00] VITALS: BP 119/56; PULSE 88; RESP 20; TEMP 36.2; O2SAT 97
[2022-11-21] MEDS: Azithromycin 500 MG TABLET PO (08:39)
[2022-11-21] MEDS: Omeprazole 20 MG CAPSULE.DR PO ×2 (08:39→20:11)
[2022-11-21] MEDS: Furosemide 40 MG TABLET PO ×2 (08:39→16:09)
[2022-11-21] MEDS: Metoprolol Tartrate 25 MG TABLET PO ×2 (08:39→20:11)
[2022-11-21] MEDS: 0.9 % Sodium Chloride Flush 3 ML SYRINGE IVFLUSH ×2 (08:40→14:59)
[2022-11-21] MEDS: Magnesium Oxide 400 MG TABLET PO (08:40)
[2022-11-21] MEDS: Apixaban 5 MG TABLET PO ×2 (08:40→20:11)
[2022-11-21] MEDS: Multivitamin TABLET 1 TAB PO (08:40)
[2022-11-21] MEDS: Potassium Chloride ER 20 MEQ TAB.ER.PRT 40 MEQ PO (08:40)
--- NOTE | 2022-11-21 09:54 | MHC.CM.PN ---
DP home with Celia AGUILAR. Family will provide transportation home. Celia has been sent a clinical update today.
--- NOTE | 2022-11-21 11:37 | HO.PM.IMPN ---
Subjective Subjective Date of Service: 11/21/22 Interval History: cc: sob interval history: a bit better Cardiovascular Cardiovascular: Reports no additional cardiovascular complaints Respiratory Respiratory: Reports no additional respiratory complaints Physical Exam Vital Signs: Vital Signs: Last Vital Signs Temp 97.1 F 11/21/22 08:00 Pulse 88 11/21/22 08:00 Resp 20 11/21/22 08:00 BP 119/56 L 11/21/22 08:00 Pulse Ox 97 11/21/22 08:00 O2 Del Method 11/21/22 08:00 O2 Flow Rate 2 11/21/22 08:00 BMI result Body Mass Index 29.2 GENERAL APPEARANCE: in no acute distress, pleasant. NECK: no carotid bruit, positive jugular venous distention. SKIN: no suspicious lesions, warm and dry. HEART: Holosystolic murmur at the apex, irregular rate and rhythm. LUNGS: no significant wheezes today. ABDOMEN: soft, nontender. EXTREMITIES: no edema. PERIPHERAL PULSES: equal. NEUROLOGIC: No gross deficits, AAO X 3 Objective Data Active Medications Albuterol/Ipratropium (Albuterol/Iprat 2.5/0.5mg 3 Ml Ampul.Neb) 3 ml INHALE RQ4H PRN PRN Reason: sob Apixaban (Apixaban 5 Mg Tablet) 5 mg PO BID [facility] Last Admin: 11/21/22 08:40 Dose: 5 mg Documented By: JARRELL Atorvastatin Calcium (Atorvastatin Calcium 40 Mg Tablet) 40 mg PO BEDTIME [facility] Last Admin: 11/20/22 20:51 Dose: 40 mg Documented By: JUSTINE Azithromycin (Azithromycin 500 Mg Tablet) 500 mg PO Q24H [facility] Last Admin: 11/21/22 08:39 Dose: 500 mg Documented By: JARRELL Calcium Carbonate (Calcium Carbonate 500 Mg Tablet) 500 mg PO BID [facility] Last Admin: 11/21/22 08:40 Dose: 500 mg Documented By: JARRELL Cefuroxime Axetil (Cefuroxime Axetil 500 Mg Tablet) 500 mg PO Q12H [facility] Last Admin: 11/21/22 02:14 Dose: 500 mg Documented By: JUSTINE Furosemide (Furosemide 40 Mg Tablet) 40 mg PO BID@0900,1800 [facility]; Protocol Last Admin: 11/21/22 08:39 Dose: 40 mg Documented By: JARRELL Guaifenesin/Dextromethorphan (Guaifenesin Dm 100/10/5 Ml 5 Ml Syrup) 5 ml PO Q6H [facility] Last Admin: 11/21/22 10:52 Dose: 5 ml Documented By: JARRELL Lisinopril (Lisinopril 2.5 Mg Tablet) 2.5 mg PO DAILY [facility]; Protocol Magnesium Oxide (Magnesium Oxide 400 Mg Tablet) 400 mg PO DAILY [facility] Last Admin: 11/21/22 08:40 Dose: 400 mg Documented By: JARRELL Metoprolol Tartrate (Metoprolol Tartrate 25 Mg Tablet) 25 mg PO BID [facility]; Protocol Last Admin: 11/21/22 08:39 Dose: 25 mg Documented By: JARRELL Multivitamins/Vitamin C (Multivitamin Tablet) 1 tab PO DAILY [facility] Last Admin: 11/21/22 08:40 Dose: 1 tab Documented By: JARRELL Omeprazole (Omeprazole 20 Mg Capsule.Dr) 20 mg PO BID [facility] Last Admin: 11/21/22 08:39 Dose: 20 mg Documented By: JARRELL Pharmacy Consult (Consult Rx Perform Med Rec) 1 each MISCELLANE ONCE PRN PRN Reason: Consult order Sodium Chloride (0.9 % Sodium Chloride Flush 3 Ml Syringe) 3 ml IVFLUSH QSHIFT [facility] Last Admin: 11/21/22 08:40 Dose: 3 ml Documented By: JARRELL Labs CBC & Chem 7: 11/21/22 06:22 11/21/22 06:22 Labs: Laboratory Results - last 24 hr 11/21/22 11/21/22 06:22 06:22 MCV 87.8 MCH 28.4 MCHC 32.3 RDW 15.0 Plt Count 229 MPV 10.0 Absolute Nucleated RBC 0.000 Nucleated RBC % (auto) 0.0 Anion Gap 13 Estim Creat Clear Calc 44.6 Estimated GFR > 60 Fasting Glucose 130 H Calcium 8.1 L Magnesium 1.9 Assessment and Plan (1) CHF (congestive heart failure): Status: Acute Plan 82F pmh chronic diastolic chf, chronic afib, cad s/p cabg, HTN, severe hiatal hernia with barretts esophogus, presented with sob, found to have fevers, hypoxia. SIRS unclear source - flu/rsv/covid negative; follow up respiratory pathogen panel on empiric rx for pneumonia -- day #4 - changed to po due to inability to obtain iv access follow up cultures -- urine negative, blood negative to date acute hypoxic respiratory failure due to acute on chronic diastolic chf lasix 40mg po bid hypoK po potassium, monitor permanent afib eliquis, metoprolol cad s/p cabg, PVD eliquis, metoprolol, statin barretts ppi dvt prophylaxis - on eliquis full code reason for continued hospitalization:still requiring o2 increased from baseline, close monitoring while diuresing. Time Spent With Patient Time: Total time managing care of this patient today ____ minutes. Quality Stroke Does the patient have a stroke diagnosis?: No VTE Prior VTE?: No VTE Risk Level:: Medical - moderate - high VTE Device Contraindication: Treatment Not Indicated VTE Drug Contraindication: N/A - Med Ordered
[2022-11-21 11:39] VITALS: BP 111/54; PULSE 87; RESP 20; TEMP 36.6; O2SAT 96
--- NOTE | 2022-11-21 12:18 | PM.PNCARD ---
Subjective Subjective Date of Service: 11/21/22 Principal diagnosis: PNA, CHF, chronic afib Interval history: Seen at 1045. Today she reports fatigue and weakness. Breahting not at baseline yet. No chest pains, palpitations, dizziness, edema. Tele shows afib rate 80-90s. Review of Systems Review of Systems as above Yes all other systems are reviewed and are negative Physical Exam Vital Signs: Last Vital Signs Temp 97.9 F 11/21/22 11:39 Pulse 87 11/21/22 11:39 Resp 20 11/21/22 11:39 BP 111/54 L 11/21/22 11:39 Pulse Ox 96 11/21/22 11:39 O2 Del Method 11/21/22 11:39 O2 Flow Rate 1 11/21/22 11:39 BMI result Body Mass Index 29.2 Const General: cooperative, comfortable and no acute distress Orientation/consciousness: patient oriented x3 Neck Neck: Yes JVD Resp Effort & Inspection: normal respiratory effort Auscultation: rales (each base), no rhonchi and no wheezes Cardio Jugular venous distension: no JVD Rate: regular rate Heart sounds: S1 normal heart sound present, S2 normal heart sound present, no gallops, no murmurs and no rubs GI Inspection: Yes normal to inspection Neuro General: patient oriented x3 Extrem General: Yes normal to inspection Psych Appearance: grossly normal Mental Status: mental status grossly normal Objective Labs and Meds Result diagrams: 11/21/22 06:22 11/21/22 06:22 Lab results: Laboratory Results - last 24 hr 11/21/22 11/21/22 06:22 06:22 WBC 9.0 RBC 3.28 L Hgb 9.3 L Hct 28.8 L MCV 87.8 MCH 28.4 MCHC 32.3 RDW 15.0 Plt Count 229 MPV 10.0 Absolute Nucleated RBC 0.000 Nucleated RBC % (auto) 0.0 Sodium 134 L Potassium 3.1 L Chloride 93 L Carbon Dioxide 31 H Anion Gap 13 BUN 19 H Creatinine 0.85 Estim Creat Clear Calc 44.6 Estimated GFR > 60 Fasting Glucose 130 H Calcium 8.1 L Magnesium 1.9 Progress Note: A&P Assessment and plan (1) CHF (congestive heart failure): Status: Acute Assessment and Plan: Admit with sob. Being tx for CHF and PNA. Echo shows EF 55-60% severe MR, mod to severe RV dysfunction, severe biatrial enlargement, mild elevation of RVSP. Being diuresed with lasix. Unclear of I+Os are accurate, Low urine outpts documented. Fluid balance recoreded at + 1500cc. Cr 0.85. BNP on admit was 1588. On exam she has JVD noted and rales in bases. Continue Lasix 40mg po BID. ( home dose was once daily). BMP, BNP in am. Accurate I+O monitoring. Consider bladder scan if urine outpt is being recorded properly. We will follow (2) Persistent atrial fibrillation: Status: Acute Assessment and Plan: Hx afib. Rates controlled with Metoprolol. Tele shows afib rate 80-90. On Eliquis for anticoagulation. No bleeding issues. Continue current tx (3) Mitral valve regurgitation: Status: Acute Assessment and Plan: Severe MR. Acute mgt of PNA and CHF as above. Will address further as outpt Time Spent With Patient Time: Total time managing care of this patient today _22___ minutes. Progress Note: Quality Stroke Does the patient have a stroke diagnosis?: No Procedures Date of Service Date of Service: 11/21/22
[2022-11-21 13:57] LABS: Adenovirus PCR Not Detected (Not Detect.); Bordetella parapertussis PCR Not Detected (Not Detect.); Bordetella pertussis PCR Not Detected (Not Detect.); Chlamydia pneumoniae PCR Not Detected (Not Detect.); Coronavirus 229E PCR Not Detected (Not Detect.); Coronavirus HKU1 PCR Not Detected (Not Detect.); Coronavirus NL63 PCR Not Detected (Not Detect.); Coronavirus OC43 PCR Not Detected (Not Detect.); Influenza A PCR Not Detected (Not Detect.); Influenza B PCR Not Detected (Not Detect.); SARS-CoV-2 PCR Not Detected (Not Detect.)
[2022-11-21 13:58] LABS: Human metapneumovirus PCR Not Detected (Not Detect.); Mycoplasma pneumoniae PCR Not Detected (Not Detect.); Parainfluenza 1 PCR Not Detected (Not Detect.); Parainfluenza 2 PCR Not Detected (Not Detect.); Parainfluenza 3 PCR Not Detected (Not Detect.); Parainfluenza 4 PCR Not Detected (Not Detect.); RSV PCR Not Detected (Not Detect.); Rhino/Enterovirus PCR Not Detected (Not Detect.)
[2022-11-21 15:42] VITALS: BP 124/63; PULSE 118; RESP 18; TEMP 36.3; O2SAT 95
[2022-11-21 19:25] VITALS: BP 127/62; PULSE 102; RESP 18; TEMP 36.1; O2SAT 92
[2022-11-21] MEDS: Atorvastatin Calcium 40 MG TABLET PO (20:11)
[2022-11-22] VITALS (11 sets, daily range): BP systolic 102–153; BP diastolic 56–72; PULSE 83–96; RESP 15–16; TEMP 36.2–36.9; O2SAT 88–100; BMI 30.4
[2022-11-22 07:05] LABS: Hematocrit 28.1 % (37.0-47.0); Mean Corpuscular Hemoglobin 28.3 pg (27.0-33.0); Mean Corpuscular Volume 88.4 fL (80.0-98.0); Mean Platelet Volume 10.2 fL (9.4-12.3); Platelet Count 244 X10*3/uL (160-400); Red Blood Count 3.18 X10*6/uL (4.20-5.50); White Blood Count 9.3 X10*3/uL (4.8-10.8)
[2022-11-22 08:11] LABS: Alanine Aminotransferase 51 U/L (0-31); Albumin Level 2.6 g/dL (3.5-5.0); Alkaline Phosphatase 164 U/L (39-117); Anion Gap 13 (12-20); Aspartate Amino Transferase 53 U/L (5-31); Bilirubin Direct 0.6 mg/dL (0.0-0.5); Bilirubin Total 1.1 mg/dL (0.0-1.0); Blood Urea Nitrogen 18 mg/dL (9-16); Calcium 8.2 mg/dL (8.4-10.2); Carbon Dioxide 31 mmol/L (22-29); Chloride 96 mmol/L (96-108); Creatinine Clr Calc Pharmacy 46.1; Estimated Glomerular Filt Rate > 60; Glucose Fasting 109 mg/dL (60-99); Potassium 3.7 mmol/L (3.3-5.1); Sodium 136 mmol/L (135-145); Total Protein 5.9 g/dL (6.5-8.0)
[2022-11-22] MEDS: Magnesium Oxide 400 MG TABLET PO (08:35)
[2022-11-22] MEDS: Azithromycin 500 MG TABLET PO (08:35)
[2022-11-22] MEDS: Furosemide 40 MG TABLET PO ×2 (08:35→17:13)
[2022-11-22] MEDS: lisinopriL 2.5 MG TABLET PO (08:36)
[2022-11-22] MEDS: Apixaban 5 MG TABLET PO ×2 (08:36→20:51)
[2022-11-22] MEDS: Metoprolol Tartrate 25 MG TABLET PO ×2 (08:36→20:50)
[2022-11-22] MEDS: Omeprazole 20 MG CAPSULE.DR PO ×2 (08:36→20:50)
[2022-11-22] MEDS: Multivitamin TABLET 1 TAB PO (08:36)
--- NOTE | 2022-11-22 09:28 | HO.PM.IMPN ---
Subjective Subjective Date of Service: 11/22/22 Interval History: cc: sob interval history: a bit better Cardiovascular Cardiovascular: Reports no additional cardiovascular complaints Respiratory Respiratory: Reports no additional respiratory complaints Physical Exam Vital Signs: Vital Signs: Last Vital Signs Temp 97.6 F 11/22/22 08:00 Pulse 94 11/22/22 08:00 Resp 16 11/22/22 08:00 BP 113/56 L 11/22/22 08:00 Pulse Ox 99 11/22/22 08:00 O2 Del Method 11/22/22 08:00 O2 Flow Rate 2 11/22/22 08:00 BMI result Body Mass Index 30.4 Const: General: cooperative, comfortable and no acute distress Orientation/consciousness: patient oriented x3 Neck: Neck: Yes JVD Resp: Effort & Inspection: normal respiratory effort Auscultation: rales (each base), no rhonchi and no wheezes Cardio: Jugular venous distension: no JVD Rate: regular rate Heart sounds: S1 normal heart sound present, S2 normal heart sound present, no gallops, no murmurs and no rubs GI: Inspection: Yes normal to inspection Neuro: General: patient oriented x3 Extrem: General: Yes normal to inspection Psych: Appearance: grossly normal Mental Status: mental status grossly normal Objective Data Active Medications Albuterol/Ipratropium (Albuterol/Iprat 2.5/0.5mg 3 Ml Ampul.Neb) 3 ml INHALE RQ4H PRN PRN Reason: sob Apixaban (Apixaban 5 Mg Tablet) 5 mg PO BID [facility] Last Admin: 11/22/22 08:36 Dose: 5 mg Documented By: OTONIEL Atorvastatin Calcium (Atorvastatin Calcium 40 Mg Tablet) 40 mg PO BEDTIME [facility] Last Admin: 11/21/22 20:11 Dose: 40 mg Documented By: KATIE Azithromycin (Azithromycin 500 Mg Tablet) 500 mg PO Q24H [facility] Last Admin: 11/22/22 08:35 Dose: 500 mg Documented By: ANAID-OLMAN Calcium Carbonate (Calcium Carbonate 500 Mg Tablet) 500 mg PO BID [facility] Last Admin: 11/22/22 08:36 Dose: 500 mg Documented By: OTONIEL Cefuroxime Axetil (Cefuroxime Axetil 500 Mg Tablet) 500 mg PO Q12H [facility] Last Admin: 11/22/22 01:40 Dose: 500 mg Documented By: KATIE Furosemide (Furosemide 40 Mg Tablet) 40 mg PO BID@0900,1800 [facility]; Protocol Last Admin: 11/22/22 08:35 Dose: 40 mg Documented By: OTONIEL Guaifenesin/Dextromethorphan (Guaifenesin Dm 100/10/5 Ml 5 Ml Syrup) 5 ml PO Q6H [facility] Last Admin: 11/22/22 05:07 Dose: Not Given Documented By: KATIE Non-Admin Reason: asleep Lisinopril (Lisinopril 2.5 Mg Tablet) 2.5 mg PO DAILY [facility]; Protocol Last Admin: 11/22/22 08:36 Dose: 2.5 mg Documented By: OTONIEL Magnesium Oxide (Magnesium Oxide 400 Mg Tablet) 400 mg PO DAILY [facility] Last Admin: 11/22/22 08:35 Dose: 400 mg Documented By: OTONIEL Metoprolol Tartrate (Metoprolol Tartrate 25 Mg Tablet) 25 mg PO BID [facility]; Protocol Last Admin: 11/22/22 08:36 Dose: 25 mg Documented By: OTONIEL Multivitamins/Vitamin C (Multivitamin Tablet) 1 tab PO DAILY [facility] Last Admin: 11/22/22 08:36 Dose: 1 tab Documented By: OTONIEL Omeprazole (Omeprazole 20 Mg Capsule.Dr) 20 mg PO BID [facility] Last Admin: 11/22/22 08:36 Dose: 20 mg Documented By: OTONIEL Pharmacy Consult (Consult Rx Perform Med Rec) 1 each MISCELLANE ONCE PRN PRN Reason: Consult order Sodium Chloride (0.9 % Sodium Chloride Flush 3 Ml Syringe) 3 ml IVFLUSH QSHIFT [facility] Last Admin: 11/22/22 07:31 Dose: Not Given Documented By: OTONIEL Non-Admin Reason: See Note Labs CBC & Chem 7: 11/22/22 06:47 11/22/22 06:47 Labs: Laboratory Results - last 24 hr 11/21/22 11/22/22 11/22/22 11:21 06:47 06:47 MCV 88.4 MCH 28.3 MCHC 32.0 RDW 15.0 Plt Count 244 MPV 10.2 Absolute Nucleated RBC 0.000 Nucleated RBC % (auto) 0.0 Anion Gap 13 Estim Creat Clear Calc 46.1 Estimated GFR > 60 Fasting Glucose 109 H Calcium 8.2 L Total Bilirubin 1.1 H Direct Bilirubin 0.6 H AST 53 H ALT 51 H Alkaline Phosphatase 164 H Total Protein 5.9 L Albumin 2.6 L Respiratory Panel Bridges See Note Adenovirus (Rapid PCR) Not Detected B.pert (TEM-PCR) Not Detected B.parapertussis DNA PCR Not Detected C. pneumoniae DNA (PCR) Not Detected Coronavirus OC43 (PCR) Not Detected Coronavirus HKU1 (PCR) Not Detected Coronavirus 229E (PCR) Not Detected Coronavirus NL63 (PCR) Not Detected Human Metapneumovir PCR Not Detected Influenza A (RT-PCR) Not Detected Influenza B (RT-PCR) Not Detected M. pneumoniae (PCR) Not Detected Parainfluenza 1 (PCR) Not Detected Parainfluenza 2 (PCR) Not Detected Parainfluenza 3 (PCR) Not Detected Parainfluenza 4 (PCR) Not Detected RSV (PCR) Not Detected Entero/Rhino (PCR) Not Detected SARS-CoV-2 RNA (RT-PCR) Not Detected Assessment and Plan (1) CHF (congestive heart failure): Status: Acute Plan 82F pmh chronic diastolic chf, chronic afib, cad s/p cabg, HTN, severe hiatal hernia with barretts esophogus, presented with sob, found to have fevers, hypoxia. SIRS unclear source - flu/rsv/covid negative; follow up respiratory pathogen panel on empiric rx for pneumonia -- day #5 - changed to po due to inability to obtain iv access follow up cultures -- urine negative, blood negative to date acute hypoxic respiratory failure due to acute on chronic diastolic chf lasix 40mg po bid wean o2 as tolerated hypoK resolved permanent afib eliquis, metoprolol cad s/p cabg, PVD eliquis, metoprolol, statin barretts ppi dvt prophylaxis - on eliquis full code reason for continued hospitalization:still requiring o2 increased from baseline, close monitoring while diuresing. Time Spent With Patient Time: Total time managing care of this patient today ____ minutes. Quality Stroke Does the patient have a stroke diagnosis?: No VTE Prior VTE?: No VTE Risk Level:: Medical - moderate - high VTE Device Contraindication: Treatment Not Indicated VTE Drug Contraindication: N/A - Med Ordered
[2022-11-22] MEDS: guaiFENesin DM 100/10/5 ML 5 ML SYRUP PO (20:51)
[2022-11-22] MEDS: Atorvastatin Calcium 40 MG TABLET PO (20:59)
[2022-11-23 04:00] VITALS: BP 110/53; PULSE 92; RESP 17; TEMP 36.2; O2SAT 97
[2022-11-23 06:00] VITALS: BMI 30.4
[2022-11-23] MEDS: guaiFENesin DM 100/10/5 ML 5 ML SYRUP PO ×4 (06:22→22:06)
[2022-11-23 07:44] VITALS: BP 108/56; PULSE 82; RESP 16; TEMP 36.1; O2SAT 100
[2022-11-23 08:17] LABS: Hemoglobin 9.8 g/dl (12.0-16.0); Mean Corpuscular HGB Conc 31.6 g/dl (31.0-35.0); Mean Corpuscular Hemoglobin 28.3 pg (27.0-33.0); Mean Corpuscular Volume 89.6 fL (80.0-98.0); Mean Platelet Volume 10.7 fL (9.4-12.3); Platelet Count 257 X10*3/uL (160-400); Red Blood Count 3.46 X10*6/uL (4.20-5.50); Red Cell Distribution Width 15.4 % (11.0-16.0); White Blood Count 9.6 X10*3/uL (4.8-10.8)
[2022-11-23 08:43] LABS: Anion Gap 15 (12-20); Blood Urea Nitrogen 17 mg/dL (9-16); Calcium 8.3 mg/dL (8.4-10.2); Carbon Dioxide 29 mmol/L (22-29); Chloride 96 mmol/L (96-108); Creatinine Clr Calc Pharmacy 46.6; Estimated Glomerular Filt Rate > 60; Glucose Fasting 112 mg/dL (60-99); Potassium 3.7 mmol/L (3.3-5.1); Sodium 136 mmol/L (135-145)
--- NOTE | 2022-11-23 09:33 | HO.PM.IMPN ---
Subjective Subjective Date of Service: 11/23/22 Interval History: cc: sob interval history: a bit better Cardiovascular Cardiovascular: Reports no additional cardiovascular complaints Respiratory Respiratory: Reports no additional respiratory complaints Physical Exam Vital Signs: Vital Signs: Last Vital Signs Temp 97 F 11/23/22 07:44 Pulse 82 11/23/22 07:44 Resp 16 11/23/22 07:44 BP 108/56 L 11/23/22 07:44 Pulse Ox 100 11/23/22 07:44 O2 Del Method 11/23/22 07:44 O2 Flow Rate 3 11/23/22 07:44 BMI result Body Mass Index 30.4 Const: General: cooperative, comfortable and no acute distress Orientation/consciousness: patient oriented x3 Neck: Neck: Yes JVD Resp: Effort & Inspection: normal respiratory effort Auscultation: rales (each base), no rhonchi and no wheezes Cardio: Jugular venous distension: no JVD Rate: regular rate Heart sounds: S1 normal heart sound present, S2 normal heart sound present, no gallops, no murmurs and no rubs GI: Inspection: Yes normal to inspection Neuro: General: patient oriented x3 Extrem: General: Yes normal to inspection Psych: Appearance: grossly normal Mental Status: mental status grossly normal Objective Data Active Medications Albuterol/Ipratropium (Albuterol/Iprat 2.5/0.5mg 3 Ml Ampul.Neb) 3 ml INHALE RQ4H PRN PRN Reason: sob Apixaban (Apixaban 5 Mg Tablet) 5 mg PO BID [facility] Last Admin: 11/22/22 20:51 Dose: 5 mg Documented By: TORRES Atorvastatin Calcium (Atorvastatin Calcium 40 Mg Tablet) 40 mg PO BEDTIME [facility] Last Admin: 11/22/22 20:59 Dose: 40 mg Documented By: TORRES Azithromycin (Azithromycin 500 Mg Tablet) 500 mg PO Q24H [facility] Last Admin: 11/22/22 08:35 Dose: 500 mg Documented By: ANAID-SOFFA Calcium Carbonate (Calcium Carbonate 500 Mg Tablet) 500 mg PO BID [facility] Last Admin: 11/22/22 20:51 Dose: 500 mg Documented By: TORRES Cefuroxime Axetil (Cefuroxime Axetil 500 Mg Tablet) 500 mg PO Q12H [facility] Last Admin: 11/23/22 03:10 Dose: 500 mg Documented By: TORRES Furosemide (Furosemide 40 Mg Tablet) 40 mg PO BID@0900,1800 [facility]; Protocol Last Admin: 11/22/22 17:13 Dose: 40 mg Documented By: OTONIEL Guaifenesin/Dextromethorphan (Guaifenesin Dm 100/10/5 Ml 5 Ml Syrup) 5 ml PO Q6H [facility] Last Admin: 11/23/22 06:22 Dose: 5 ml Documented By: TORRES Lisinopril (Lisinopril 2.5 Mg Tablet) 2.5 mg PO DAILY [facility]; Protocol Last Admin: 11/22/22 08:36 Dose: 2.5 mg Documented By: OTONIEL Magnesium Oxide (Magnesium Oxide 400 Mg Tablet) 400 mg PO DAILY [facility] Last Admin: 11/22/22 08:35 Dose: 400 mg Documented By: OTONIEL Metoprolol Tartrate (Metoprolol Tartrate 25 Mg Tablet) 25 mg PO BID [facility]; Protocol Last Admin: 11/22/22 20:50 Dose: 25 mg Documented By: TORRES Multivitamins/Vitamin C (Multivitamin Tablet) 1 tab PO DAILY [facility] Last Admin: 11/22/22 08:36 Dose: 1 tab Documented By: OTONIEL Omeprazole (Omeprazole 20 Mg Capsule.Dr) 20 mg PO BID [facility] Last Admin: 11/22/22 20:50 Dose: 20 mg Documented By: TORRES Pharmacy Consult (Consult Rx Perform Med Rec) 1 each MISCELLANE ONCE PRN PRN Reason: Consult order Sodium Chloride (0.9 % Sodium Chloride Flush 3 Ml Syringe) 3 ml IVFLUSH QSHIFT [facility] Last Admin: 11/23/22 02:36 Dose: Not Given Documented By: TORRES Non-Admin Reason: No Access Labs CBC & Chem 7: 11/23/22 07:09 11/23/22 07:09 Labs: Laboratory Results - last 24 hr 11/23/22 11/23/22 07:09 07:09 MCV 89.6 MCH 28.3 MCHC 31.6 RDW 15.4 Plt Count 257 MPV 10.7 Absolute Nucleated RBC 0.000 Nucleated RBC % (auto) 0.0 Anion Gap 15 Estim Creat Clear Calc 46.6 Estimated GFR > 60 Fasting Glucose 112 H Calcium 8.3 L Microbiology Microbiology Results: Microbiology 11/17/22 17:11 Blood Culture - Final Blood - Venous No growth after 5 days. 11/17/22 17:11 Blood Culture - Final Blood - Venous No growth after 5 days. Assessment and Plan (1) CHF (congestive heart failure): Status: Acute Plan 82F pmh chronic diastolic chf, chronic afib, cad s/p cabg, HTN, severe hiatal hernia with barretts esophogus, presented with sob, found to have fevers, hypoxia. SIRS unclear source - flu/rsv/covid negative; negative respiratory pathogen panel on empiric rx for pneumonia -- day #6 - changed to po due to inability to obtain iv access follow up cultures -- urine negative, blood negative to date acute hypoxic respiratory failure due to acute on chronic diastolic chf with severe MR lasix 40mg po bid wean o2 as tolerated hypoK resolved permanent afib eliquis, metoprolol cad s/p cabg, PVD eliquis, metoprolol, statin barretts ppi dvt prophylaxis - on eliquis full code reason for continued hospitalization:still requiring o2 increased from baseline, close monitoring while diuresing. Time Spent With Patient Time: Total time managing care of this patient today ____ minutes. Quality Stroke Does the patient have a stroke diagnosis?: No VTE Prior VTE?: No VTE Risk Level:: Medical - moderate - high VTE Device Contraindication: Treatment Not Indicated VTE Drug Contraindication: N/A - Med Ordered
[2022-11-23] MEDS: Metoprolol Tartrate 25 MG TABLET PO (11:01)
[2022-11-23] MEDS: Furosemide 40 MG TABLET PO ×2 (11:01→16:31)
[2022-11-23] MEDS: Multivitamin TABLET 1 TAB PO (11:01)
[2022-11-23] MEDS: 0.9 % Sodium Chloride Flush 3 ML SYRINGE IVFLUSH ×3 (11:01→20:30)
[2022-11-23] MEDS: Azithromycin 500 MG TABLET PO (11:01)
[2022-11-23] MEDS: Apixaban 5 MG TABLET PO ×2 (11:02→20:29)
[2022-11-23] MEDS: Magnesium Oxide 400 MG TABLET PO (11:02)
[2022-11-23] MEDS: Omeprazole 20 MG CAPSULE.DR PO ×2 (11:02→20:29)
[2022-11-23] MEDS: lisinopriL 2.5 MG TABLET PO (11:02)
[2022-11-23 11:56] VITALS: BP 125/63; PULSE 80; RESP 16; TEMP 36.4; O2SAT 99
[2022-11-23 16:00] VITALS: BP 99/47; PULSE 84; RESP 16; TEMP 36.4; O2SAT 100
--- NOTE | 2022-11-23 18:17 | PM.PNCARD ---
Subjective Subjective Date of Service: 11/23/22 Principal diagnosis: PNA, CHF, chronic afib Interval history: Patient seen examined at bedside. Overall clinical status is improving. Still volume overloaded. Physical Exam Vital Signs: Last Vital Signs Temp 97.6 F 11/23/22 16:00 Pulse 84 11/23/22 16:00 Resp 16 11/23/22 16:00 BP 99/47 L 11/23/22 16:00 Pulse Ox 100 11/23/22 16:00 O2 Del Method 11/23/22 16:00 O2 Flow Rate 1 11/23/22 16:00 BMI result Body Mass Index 30.4 GENERAL APPEARANCE: in no acute distress, pleasant. NECK: no carotid bruit, mild jugular venous distention. SKIN: no suspicious lesions, warm and dry. HEART: Holosystolic murmur at the apex, irregular rate and rhythm. LUNGS: Bibasilar crackles. ABDOMEN: soft, nontender. EXTREMITIES: no edema. PERIPHERAL PULSES: equal. NEUROLOGIC: No gross deficits, AAO X 3 Objective Labs and Meds Result diagrams: 11/23/22 07:09 11/23/22 07:09 Lab results: Laboratory Results - last 24 hr 11/23/22 11/23/22 07:09 07:09 WBC 9.6 RBC 3.46 L Hgb 9.8 L Hct 31.0 L MCV 89.6 MCH 28.3 MCHC 31.6 RDW 15.4 Plt Count 257 MPV 10.7 Absolute Nucleated RBC 0.000 Nucleated RBC % (auto) 0.0 Sodium 136 Potassium 3.7 Chloride 96 Carbon Dioxide 29 Anion Gap 15 BUN 17 H Creatinine 0.83 Estim Creat Clear Calc 46.6 Estimated GFR > 60 Fasting Glucose 112 H Calcium 8.3 L Progress Note: A&P Assessment and plan (1) Mitral valve regurgitation: Status: Acute (2) Persistent atrial fibrillation: Status: Acute (3) CHF (congestive heart failure): Status: Acute Plan Pleasant 82-year-old female presenting with congestive heart failure. She has severe mitral valve regurgitation. She has chronic atrial fibrillation. Clinically she still appears to be volume overloaded. Would continue IV diuretics today. With reassess her in the morning for further IV diuretics and blood pressure is softer now. On lisinopril 2.5 mg once a day. 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 Thank you for allowing me to participate in the care of your patient. Please feel free to contact me if you have any questions. Time Spent With Patient Time: Total time managing care of this patient today ____ minutes. Progress Note: Quality Stroke Does the patient have a stroke diagnosis?: No Procedures Date of Service Date of Service: 11/23/22
[2022-11-23 20:00] VITALS: BP 101/49; PULSE 84; RESP 15; TEMP 36.8; O2SAT 95
[2022-11-23] MEDS: Atorvastatin Calcium 40 MG TABLET PO (20:29)
[2022-11-24] VITALS: BP 107/53; PULSE 84; RESP 20; TEMP 36.4; O2SAT 95
[2022-11-24 03:42] VITALS: BP 98/50; PULSE 88; RESP 20; TEMP 36.1; O2SAT 96
[2022-11-24] MEDS: guaiFENesin DM 100/10/5 ML 5 ML SYRUP PO ×3 (04:06→17:34)
[2022-11-24 05:46] VITALS: BMI 30.7
[2022-11-24 06:49] LABS: Hematocrit 29.1 % (37.0-47.0); Hemoglobin 9.3 g/dl (12.0-16.0); Mean Corpuscular Hemoglobin 27.9 pg (27.0-33.0); Mean Corpuscular Volume 87.4 fL (80.0-98.0); Mean Platelet Volume 9.6 fL (9.4-12.3); Platelet Count 287 X10*3/uL (160-400); Red Blood Count 3.33 X10*6/uL (4.20-5.50); Red Cell Distribution Width 15.3 % (11.0-16.0); White Blood Count 8.4 X10*3/uL (4.8-10.8)
[2022-11-24 07:14] LABS: Alanine Aminotransferase 44 U/L (0-31); Albumin Level 2.6 g/dL (3.5-5.0); Alkaline Phosphatase 141 U/L (39-117); Anion Gap 14 (12-20); Aspartate Amino Transferase 35 U/L (5-31); Bilirubin Direct 0.5 mg/dL (0.0-0.5); Bilirubin Total 0.9 mg/dL (0.0-1.0); Blood Urea Nitrogen 16 mg/dL (9-16); Calcium 8.4 mg/dL (8.4-10.2); Carbon Dioxide 30 mmol/L (22-29); Chloride 96 mmol/L (96-108); Creatinine Clr Calc Pharmacy 44.2; Estimated Glomerular Filt Rate > 60; Glucose Fasting 95 mg/dL (60-99); Magnesium 1.9 mg/dL (1.6-2.6); Potassium 3.7 mmol/L (3.3-5.1); Sodium 136 mmol/L (135-145)
[2022-11-24 07:53] VITALS: BP 115/63; PULSE 90; RESP 20; TEMP 36.4; O2SAT 99
[2022-11-24] MEDS: Omeprazole 20 MG CAPSULE.DR PO ×2 (07:57→20:16)
[2022-11-24] MEDS: Apixaban 5 MG TABLET PO ×2 (07:57→20:18)
[2022-11-24] MEDS: lisinopriL 2.5 MG TABLET PO (07:57)
[2022-11-24] MEDS: Metoprolol Tartrate 25 MG TABLET PO (07:57)
[2022-11-24] MEDS: Magnesium Oxide 400 MG TABLET PO (07:57)
[2022-11-24] MEDS: Azithromycin 500 MG TABLET PO (07:58)
[2022-11-24] MEDS: Multivitamin TABLET 1 TAB PO (07:58)
[2022-11-24] MEDS: 0.9 % Sodium Chloride Flush 3 ML SYRINGE IVFLUSH (07:58)
--- NOTE | 2022-11-24 09:15 | HO.PM.IMPN ---
Subjective Subjective Date of Service: 11/24/22 Interval History: cc: sob interval history: a bit better Cardiovascular Cardiovascular: Reports no additional cardiovascular complaints Respiratory Respiratory: Reports no additional respiratory complaints Physical Exam Vital Signs: Vital Signs: Last Vital Signs Temp 97.6 F 11/24/22 07:53 Pulse 90 11/24/22 07:53 Resp 20 11/24/22 07:53 BP 115/63 11/24/22 07:53 Pulse Ox 99 11/24/22 07:53 O2 Del Method 11/24/22 07:53 O2 Flow Rate 2 11/24/22 07:53 BMI result Body Mass Index 30.7 GENERAL APPEARANCE: in no acute distress, pleasant. NECK: no carotid bruit, mild jugular venous distention. SKIN: no suspicious lesions, warm and dry. HEART: Holosystolic murmur at the apex, irregular rate and rhythm. LUNGS: Bibasilar crackles. ABDOMEN: soft, nontender. EXTREMITIES: no edema. PERIPHERAL PULSES: equal. NEUROLOGIC: No gross deficits, AAO X 3 Objective Data Active Medications Albuterol/Ipratropium (Albuterol/Iprat 2.5/0.5mg 3 Ml Ampul.Neb) 3 ml INHALE RQ4H PRN PRN Reason: sob Apixaban (Apixaban 5 Mg Tablet) 5 mg PO BID [facility] Last Admin: 11/24/22 07:57 Dose: 5 mg Documented By: TRACY Atorvastatin Calcium (Atorvastatin Calcium 40 Mg Tablet) 40 mg PO BEDTIME [facility] Last Admin: 11/23/22 20:29 Dose: 40 mg Documented By: MADISON Azithromycin (Azithromycin 500 Mg Tablet) 500 mg PO Q24H [facility] Last Admin: 11/24/22 07:58 Dose: 500 mg Documented By: TRACY Calcium Carbonate (Calcium Carbonate 500 Mg Tablet) 500 mg PO BID [facility] Last Admin: 11/24/22 07:57 Dose: 500 mg Documented By: TRACY Cefuroxime Axetil (Cefuroxime Axetil 500 Mg Tablet) 500 mg PO Q12H [facility] Last Admin: 11/24/22 01:45 Dose: 500 mg Documented By: MADISON Guaifenesin/Dextromethorphan (Guaifenesin Dm 100/10/5 Ml 5 Ml Syrup) 5 ml PO Q6H [facility] Last Admin: 11/24/22 04:06 Dose: 5 ml Documented By: MADISON Lisinopril (Lisinopril 2.5 Mg Tablet) 2.5 mg PO DAILY [facility]; Protocol Last Admin: 11/24/22 07:57 Dose: 2.5 mg Documented By: TRACY Magnesium Oxide (Magnesium Oxide 400 Mg Tablet) 400 mg PO DAILY [facility] Last Admin: 11/24/22 07:57 Dose: 400 mg Documented By: TRACY Metoprolol Tartrate (Metoprolol Tartrate 25 Mg Tablet) 25 mg PO BID [facility]; Protocol Last Admin: 11/24/22 07:57 Dose: 25 mg Documented By: TRACY Multivitamins/Vitamin C (Multivitamin Tablet) 1 tab PO DAILY [facility] Last Admin: 11/24/22 07:58 Dose: 1 tab Documented By: TRACY Omeprazole (Omeprazole 20 Mg Capsule.Dr) 20 mg PO BID [facility] Last Admin: 11/24/22 07:57 Dose: 20 mg Documented By: TRACY Pharmacy Consult (Consult Rx Perform Med Rec) 1 each MISCELLANE ONCE PRN PRN Reason: Consult order Sodium Chloride (0.9 % Sodium Chloride Flush 3 Ml Syringe) 3 ml IVFLUSH QSHIFT [facility] Last Admin: 11/24/22 07:58 Dose: 3 ml Documented By: TRACY Labs CBC & Chem 7: 11/24/22 06:43 11/24/22 06:43 Labs: Laboratory Results - last 24 hr 11/24/22 11/24/22 06:43 06:43 MCV 87.4 MCH 27.9 MCHC 32.0 RDW 15.3 Plt Count 287 MPV 9.6 Absolute Nucleated RBC 0.000 Nucleated RBC % (auto) 0.0 Anion Gap 14 Estim Creat Clear Calc 44.2 Estimated GFR > 60 Fasting Glucose 95 Calcium 8.4 Magnesium 1.9 Total Bilirubin 0.9 Direct Bilirubin 0.5 AST 35 H ALT 44 H Alkaline Phosphatase 141 H Total Protein 6.0 L Albumin 2.6 L Assessment and Plan (1) CHF (congestive heart failure): Status: Acute Plan 82F pmh chronic diastolic chf, chronic afib, cad s/p cabg, HTN, severe hiatal hernia with barretts esophogus, presented with sob, found to have fevers, hypoxia. SIRS unclear source - flu/rsv/covid negative; negative respiratory pathogen panel on empiric rx for pneumonia -- day #7 - changed to po due to inability to obtain iv access follow up cultures -- urine negative, blood negative to date acute hypoxic respiratory failure due to acute on chronic diastolic chf with severe MR lasix 40mg po bid wean o2 as tolerated hypoK resolved permanent afib eliquis, metoprolol cad s/p cabg, PVD eliquis, metoprolol, statin barretts ppi dvt prophylaxis - on eliquis full code reason for continued hospitalization:still requiring o2 increased from baseline, close monitoring while diuresing. Time Spent With Patient Time: Total time managing care of this patient today ____ minutes. Quality Stroke Does the patient have a stroke diagnosis?: No VTE Prior VTE?: No VTE Risk Level:: Medical - moderate - high VTE Device Contraindication: Treatment Not Indicated VTE Drug Contraindication: N/A - Med Ordered
--- NOTE | 2022-11-24 09:55 | PC.NURSE ---
Pt desat to 84 and back to 93-94. Pt denies SOB, chest pain.Provider notify, will continue to monitor.
--- NOTE | 2022-11-24 11:14 | PM.PNCARD ---
Subjective Subjective Date of Service: 11/24/22 Principal diagnosis: PNA, CHF, chronic afib Interval history: Seen examined at bedside. Off supplemental oxygen and feeling fine. Physical Exam Vital Signs: Last Vital Signs Temp 97.6 F 11/24/22 07:53 Pulse 90 11/24/22 07:53 Resp 20 11/24/22 07:53 BP 115/63 11/24/22 07:53 Pulse Ox 99 11/24/22 07:53 O2 Del Method 11/24/22 07:53 O2 Flow Rate 2 11/24/22 07:53 BMI result Body Mass Index 30.7 GENERAL APPEARANCE: in no acute distress, pleasant. NECK: no carotid bruit, no significant jugular venous distention. SKIN: no suspicious lesions, warm and dry. HEART: Holosystolic murmur at the apex, irregular rate and rhythm. LUNGS: Clear to auscultation. ABDOMEN: soft, nontender. EXTREMITIES: no edema. PERIPHERAL PULSES: equal. NEUROLOGIC: No gross deficits, AAO X 3 Objective Labs and Meds Result diagrams: 11/24/22 06:43 11/24/22 06:43 Lab results: Laboratory Results - last 24 hr 11/24/22 11/24/22 06:43 06:43 WBC 8.4 RBC 3.33 L Hgb 9.3 L Hct 29.1 L MCV 87.4 MCH 27.9 MCHC 32.0 RDW 15.3 Plt Count 287 MPV 9.6 Absolute Nucleated RBC 0.000 Nucleated RBC % (auto) 0.0 Sodium 136 Potassium 3.7 Chloride 96 Carbon Dioxide 30 H Anion Gap 14 BUN 16 Creatinine 0.88 Estim Creat Clear Calc 44.2 Estimated GFR > 60 Fasting Glucose 95 Calcium 8.4 Magnesium 1.9 Total Bilirubin 0.9 Direct Bilirubin 0.5 AST 35 H ALT 44 H Alkaline Phosphatase 141 H Total Protein 6.0 L Albumin 2.6 L Progress Note: A&P Assessment and plan (1) Mitral valve regurgitation: Status: Acute (2) Persistent atrial fibrillation: Status: Acute (3) CHF (congestive heart failure): Status: Acute Plan Pleasant 82-year-old female presenting with congestive heart failure. She has severe mitral valve regurgitation. She has chronic atrial fibrillation. Clinically she is euvolemic at this stage. Start her on 40 mg p.o. b.i.d. Lasix. On lisinopril 2.5 mg once a day. 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 Thank you for allowing me to participate in the care of your patient. Please feel free to contact me if you have any questions. Time Spent With Patient Time: Total time managing care of this patient today ____ minutes. Progress Note: Quality Stroke Does the patient have a stroke diagnosis?: No Procedures Date of Service Date of Service: 11/24/22
[2022-11-24 12:00] VITALS: BP 105/56; PULSE 72; RESP 20; TEMP 36.6; O2SAT 96
[2022-11-24] MEDS: Furosemide 40 MG TABLET PO ×2 (12:32→17:34)
[2022-11-24 15:50] VITALS: BP 99/51; PULSE 72; RESP 15; TEMP 36; O2SAT 96
--- NOTE | 2022-11-24 17:56 | PC.NURSE ---
Pt in [address] [place], desat to 58 and back to 93-94, Pt is eating,Pt denies SOB,Chest pain, dizziness, headche.Provider notify with no new interventions pt on Room air. will continue to monitor.
[2022-11-24 19:32] VITALS: BP 95/45; PULSE 85; RESP 16; TEMP 36.4; O2SAT 94
[2022-11-24] MEDS: Atorvastatin Calcium 40 MG TABLET PO (20:18)
[2022-11-24 23:21] LABS: Anion Gap 14 (12-20); Blood Urea Nitrogen 19 mg/dL (9-16); Calcium 8.2 mg/dL (8.4-10.2); Carbon Dioxide 28 mmol/L (22-29); Chloride 96 mmol/L (96-108); Creatinine Clr Calc Pharmacy 41.8; Estimated Glomerular Filt Rate 58; Glucose Random 82 mg/dL (60-115); Magnesium 1.8 mg/dL (1.6-2.6); Potassium 3.9 mmol/L (3.3-5.1); Sodium 134 mmol/L (135-145)
[2022-11-25] VITALS: BP 122/81; PULSE 77; RESP 16; TEMP 36.3; O2SAT 96
[2022-11-25] MEDS: 0.9 % Sodium Chloride Flush 3 ML SYRINGE IVFLUSH ×2 (01:03→20:30)
--- NOTE | 2022-11-25 04:32 | PC.NURSE ---
11/24/2022 @2004 Patient had a 5 beat run of Dianne Dao MD aware.
[2022-11-25 07:33] VITALS: BP 120/55; PULSE 89; RESP 20; TEMP 36.4; O2SAT 93
[2022-11-25] MEDS: Omeprazole 20 MG CAPSULE.DR PO ×2 (08:35→20:27)
[2022-11-25] MEDS: Apixaban 5 MG TABLET PO ×2 (08:35→20:26)
[2022-11-25] MEDS: Azithromycin 500 MG TABLET PO (08:35)
[2022-11-25] MEDS: Furosemide 40 MG TABLET PO ×2 (08:35→17:49)
[2022-11-25] MEDS: Magnesium Oxide 400 MG TABLET PO (08:35)
[2022-11-25] MEDS: Metoprolol Tartrate 25 MG TABLET PO (08:35)
[2022-11-25] MEDS: lisinopriL 2.5 MG TABLET PO (08:35)
[2022-11-25] MEDS: Multivitamin TABLET 1 TAB PO (08:35)
--- NOTE | 2022-11-25 10:50 | P.PNIM_ITS ---
Subjective Subjective Date of Service: 11/25/22 Interval History: cc: sob interval history: a bit better Cardiovascular Cardiovascular: Reports no additional cardiovascular complaints Respiratory Respiratory: Reports no additional respiratory complaints Physical Exam Vital Signs: Vital Signs: Last Vital Signs Temp 97.5 F 11/25/22 07:33 Pulse 89 11/25/22 07:33 Resp 20 11/25/22 07:33 BP 120/55 L 11/25/22 07:33 Pulse Ox 93 11/25/22 07:33 O2 Del Method 11/25/22 07:33 O2 Flow Rate 2 11/24/22 07:53 BMI result Body Mass Index 30.7 GENERAL APPEARANCE: in no acute distress, pleasant. NECK: no carotid bruit, no significant jugular venous distention. SKIN: no suspicious lesions, warm and dry. HEART: Holosystolic murmur at the apex, irregular rate and rhythm. LUNGS: Clear to auscultation. ABDOMEN: soft, nontender. EXTREMITIES: no edema. PERIPHERAL PULSES: equal. NEUROLOGIC: No gross deficits, AAO X 3 Objective Data Active Medications Albuterol/Ipratropium (Albuterol/Iprat 2.5/0.5mg 3 Ml Ampul.Neb) 3 ml INHALE RQ4H PRN PRN Reason: sob Apixaban (Apixaban 5 Mg Tablet) 5 mg PO BID [facility] Last Admin: 11/25/22 08:35 Dose: 5 mg Documented By: TRACY Atorvastatin Calcium (Atorvastatin Calcium 40 Mg Tablet) 40 mg PO BEDTIME [facility] Last Admin: 11/24/22 20:18 Dose: 40 mg Documented By: WARREN Azithromycin (Azithromycin 500 Mg Tablet) 500 mg PO Q24H [facility] Last Admin: 11/25/22 08:35 Dose: 500 mg Documented By: TRACY Calcium Carbonate (Calcium Carbonate 500 Mg Tablet) 500 mg PO BID [facility] Last Admin: 11/25/22 08:35 Dose: 500 mg Documented By: TRACY Cefuroxime Axetil (Cefuroxime Axetil 500 Mg Tablet) 500 mg PO Q12H [facility] Last Admin: 11/25/22 02:18 Dose: 500 mg Documented By: WARREN Furosemide (Furosemide 40 Mg Tablet) 40 mg PO BID@0900,1800 [facility]; Protocol Last Admin: 11/25/22 08:35 Dose: 40 mg Documented By: TRACY Guaifenesin/Dextromethorphan (Guaifenesin Dm 100/10/5 Ml 5 Ml Syrup) 5 ml PO Q6H [facility] Last Admin: 11/25/22 05:53 Dose: Not Given Documented By: WARREN Non-Admin Reason: Patient Asleep Lisinopril (Lisinopril 2.5 Mg Tablet) 2.5 mg PO DAILY [facility]; Protocol Last Admin: 11/25/22 08:35 Dose: 2.5 mg Documented By: TRACY Magnesium Oxide (Magnesium Oxide 400 Mg Tablet) 400 mg PO DAILY [facility] Last Admin: 11/25/22 08:35 Dose: 400 mg Documented By: TRACY Metoprolol Tartrate (Metoprolol Tartrate 25 Mg Tablet) 25 mg PO BID [facility]; Protocol Last Admin: 11/25/22 08:35 Dose: 25 mg Documented By: TRACY Multivitamins/Vitamin C (Multivitamin Tablet) 1 tab PO DAILY [facility] Last Admin: 11/25/22 08:35 Dose: 1 tab Documented By: TRACY Omeprazole (Omeprazole 20 Mg Capsule.Dr) 20 mg PO BID [facility] Last Admin: 11/25/22 08:35 Dose: 20 mg Documented By: TRACY Pharmacy Consult (Consult Rx Perform Med Rec) 1 each MISCELLANE ONCE PRN PRN Reason: Consult order Sodium Chloride (0.9 % Sodium Chloride Flush 3 Ml Syringe) 3 ml IVFLUSH QSHIFT [facility] Last Admin: 11/25/22 08:41 Dose: Not Given Documented By: TRACY Non-Admin Reason: Pt has no access Labs CBC & Chem 7: 11/24/22 06:43 11/24/22 22:42 Labs: Laboratory Results - last 24 hr 11/24/22 22:42 Anion Gap 14 Estim Creat Clear Calc 41.8 Estimated GFR 58 Random Glucose 82 Calcium 8.2 L Magnesium 1.8 Assessment and Plan (1) CHF (congestive heart failure): Status: Acute Plan 82F pmh chronic diastolic chf, chronic afib, cad s/p cabg, HTN, severe hiatal hernia with barretts esophogus, presented with sob, found to have fevers, hypoxia. SIRS unclear source - flu/rsv/covid negative; negative respiratory pathogen panel completed 7 days, will dc abx acute hypoxic respiratory failure due to acute on chronic diastolic chf with severe MR lasix 40mg po bid wean o2 as tolerated - now on room air today at rest debility PT eval hypoK resolved permanent afib eliquis, metoprolol cad s/p cabg, PVD eliquis, metoprolol, statin barretts ppi dvt prophylaxis - on eliquis full code reason for continued hospitalization:weakness, close monitoring while diuresing. Time Spent With Patient Time: Total time managing care of this patient today ____ minutes. Quality Stroke Does the patient have a stroke diagnosis?: No VTE Prior VTE?: No VTE Risk Level:: Medical - moderate - high VTE Device Contraindication: Treatment Not Indicated VTE Drug Contraindication: N/A - Med Ordered
[2022-11-25 11:35] VITALS: BP 112/56; PULSE 89; RESP 20; TEMP 36.3; O2SAT 95
[2022-11-25] MEDS: guaiFENesin DM 100/10/5 ML 5 ML SYRUP PO ×2 (12:43→17:49)
[2022-11-25 15:32] VITALS: BP 108/52; PULSE 86; RESP 18; TEMP 37.1; O2SAT 96
--- NOTE | 2022-11-25 15:32 | MHC.CM.PN ---
PT is recommending STR; CM will continue to follow.
--- NOTE | 2022-11-25 18:06 | P.PNCA_ITS ---
Subjective Subjective Date of Service: 11/25/22 Principal diagnosis: PNA, CHF, chronic afib Interval history: Patient feeling better. Currently not using oxygen. Remains in atrial fibrillation with controlled rate. Denies any chest pain or shortness of breath. Review of Systems Review of Systems Yes Unobtainable due to mental status Physical Exam Vital Signs: Last Vital Signs Temp 98.7 F 11/25/22 15:32 Pulse 86 11/25/22 15:32 Resp 18 11/25/22 15:32 BP 108/52 L 11/25/22 15:32 Pulse Ox 96 11/25/22 15:32 O2 Del Method 11/25/22 15:32 O2 Flow Rate 2 11/24/22 07:53 BMI result Body Mass Index 30.7 GENERAL APPEARANCE: in no acute distress, pleasant. NECK: no carotid bruit, no significant jugular venous distention. SKIN: no suspicious lesions, warm and dry. HEART: Holosystolic murmur at the apex, irregular rate and rhythm. LUNGS: Clear to auscultation. ABDOMEN: soft, nontender. EXTREMITIES: no edema. PERIPHERAL PULSES: equal. NEUROLOGIC: No gross deficits, AAO X 3 Objective Labs and Meds Result diagrams: 11/24/22 06:43 11/24/22 22:42 Lab results: Laboratory Results - last 24 hr 11/24/22 22:42 Sodium 134 L Potassium 3.9 Chloride 96 Carbon Dioxide 28 Anion Gap 14 BUN 19 H Creatinine 0.93 Estim Creat Clear Calc 41.8 Estimated GFR 58 Random Glucose 82 Calcium 8.2 L Magnesium 1.8 Progress Note: A&P Assessment and plan (1) CHF (congestive heart failure): Status: Acute Assessment and Plan: CHF which appears to be well control at this point time. Continue Lasix 40 mg b.i.d.. Family is very frustrated about her repeated hospitalization. Discuss the nature of congestive heart failure. Management of congestive heart failure as outpatient was discussed. Additional diuretics as needed for weight gain and/or leg edema was discussed with the son who is the primary small animal caretaker. Patient probably will need subacute rehab for physical strengthening. She does have severe mitral regurgitation although not a candidate for percutaneous repair as this is calcific in nature. Not a candidate for open heart surgery given her prior open-heart surgery. Overall prognosis is guarded. (2) Persistent atrial fibrillation: Status: Acute Assessment and Plan: Rate control atrial fibrillation. Continue rate control strategy. Continue full oral anticoagulation Eliquis. (3) Mitral valve regurgitation: Status: Acute Assessment and Plan: As above. Will sign of the case. Thank you for allowing me to partake in her care Time Spent With Patient Time: Total time managing care of this patient today ____ minutes. Progress Note: Quality Stroke Does the patient have a stroke diagnosis?: No Procedures Date of Service Date of Service: 11/25/22
[2022-11-25 19:42] VITALS: BP 90/52; PULSE 78; RESP 18; TEMP 36.8; O2SAT 97
[2022-11-25] MEDS: Atorvastatin Calcium 40 MG TABLET PO (20:27)
[2022-11-25 23:53] VITALS: BP 100/49; PULSE 93; RESP 15; TEMP 36.1; O2SAT 93
[2022-11-26 04:00] VITALS: BP 131/58; PULSE 86; RESP 14; TEMP 36.1; O2SAT 97
[2022-11-26 06:10] VITALS: BMI 31.6
[2022-11-26 08:00] VITALS: BP 129/59; PULSE 85; RESP 17; TEMP 36.6; O2SAT 94
[2022-11-26] MEDS: Apixaban 5 MG TABLET PO (09:06)
[2022-11-26] MEDS: Omeprazole 20 MG CAPSULE.DR PO (09:06)
[2022-11-26] MEDS: lisinopriL 2.5 MG TABLET PO (09:06)
[2022-11-26] MEDS: Multivitamin TABLET 1 TAB PO (09:07)
[2022-11-26] MEDS: Metoprolol Tartrate 25 MG TABLET PO (09:07)
[2022-11-26] MEDS: Furosemide 40 MG TABLET PO (09:07)
[2022-11-26] MEDS: Magnesium Oxide 400 MG TABLET PO (09:07)
--- NOTE | 2022-11-26 11:10 | P.PNIM_ITS ---
Subjective Subjective Date of Service: 11/26/22 Interval History: f/u on acute resp failure interval history: sob, weak Review of Systems weak no sob Physical Exam Vital Signs: Vital Signs: Last Vital Signs Temp 97.9 F 11/26/22 08:00 Pulse 85 11/26/22 08:00 Resp 17 11/26/22 08:00 BP 129/59 L 11/26/22 08:00 Pulse Ox 94 11/26/22 08:00 O2 Del Method 11/26/22 08:00 O2 Flow Rate 1 11/26/22 04:00 BMI result Body Mass Index 31.6 Const: Other: General: AO X 3, no acute distress Resp: CTA bilateral CVS: S1,S2,RRR GI: +BS, NT, no distention Skin: No rash Neuro: motor grossly intact Psych: appropriate affect Objective Data Active Medications Albuterol/Ipratropium (Albuterol/Iprat 2.5/0.5mg 3 Ml Ampul.Neb) 3 ml INHALE RQ4H PRN PRN Reason: sob Apixaban (Apixaban 5 Mg Tablet) 5 mg PO BID [facility] Last Admin: 11/26/22 09:06 Dose: 5 mg Documented By: TRACY Atorvastatin Calcium (Atorvastatin Calcium 40 Mg Tablet) 40 mg PO BEDTIME [facility] Last Admin: 11/25/22 20:27 Dose: 40 mg Documented By: WARREN Calcium Carbonate (Calcium Carbonate 500 Mg Tablet) 500 mg PO BID [facility] Last Admin: 11/26/22 09:07 Dose: 500 mg Documented By: RTACY Furosemide (Furosemide 40 Mg Tablet) 40 mg PO BID@0900,1800 [facility]; Protocol Last Admin: 11/26/22 09:07 Dose: 40 mg Documented By: TRACY Guaifenesin/Dextromethorphan (Guaifenesin Dm 100/10/5 Ml 5 Ml Syrup) 5 ml PO Q6H [facility] Last Admin: 11/26/22 04:57 Dose: Not Given Documented By: WARREN Non-Admin Reason: Patient Refused Lisinopril (Lisinopril 2.5 Mg Tablet) 2.5 mg PO DAILY [facility]; Protocol Last Admin: 11/26/22 09:06 Dose: 2.5 mg Documented By: TRACY Magnesium Oxide (Magnesium Oxide 400 Mg Tablet) 400 mg PO DAILY [facility] Last Admin: 11/26/22 09:07 Dose: 400 mg Documented By: TRACY Metoprolol Tartrate (Metoprolol Tartrate 25 Mg Tablet) 25 mg PO BID [facility]; Protocol Last Admin: 11/26/22 09:07 Dose: 25 mg Documented By: TRACY Multivitamins/Vitamin C (Multivitamin Tablet) 1 tab PO DAILY [facility] Last Admin: 11/26/22 09:07 Dose: 1 tab Documented By: TRACY Omeprazole (Omeprazole 20 Mg Capsule.Dr) 20 mg PO BID [facility] Last Admin: 11/26/22 09:06 Dose: 20 mg Documented By: TRACY Pharmacy Consult (Consult Rx Perform Med Rec) 1 each MISCELLANE ONCE PRN PRN Reason: Consult order Sodium Chloride (0.9 % Sodium Chloride Flush 3 Ml Syringe) 3 ml IVFLUSH QSHIFT [facility] Last Admin: 11/26/22 09:11 Dose: Not Given Documented By: TRACY Non-Admin Reason: No Access Labs CBC & Chem 7: 11/24/22 06:43 11/24/22 22:42 Assessment and Plan (1) CHF (congestive heart failure): Status: Acute Plan 82F pmh chronic diastolic chf, chronic afib, cad s/p cabg, HTN, severe hiatal hernia with barretts esophogus, presented with sob, found to have fevers, hypoxia. SIRS unclear source - flu/rsv/covid negative; negative respiratory pathogen panel completed 7 days of Abx acute hypoxic respiratory failure due to acute on chronic diastolic chf with severe MR lasix 40mg po bid weaned o2 as tolerated - now on room air today at rest debility PT eval rec STR hypoK resolved permanent afib eliquis, metoprolol cad s/p cabg, PVD eliquis, metoprolol, statin barretts ppi dvt prophylaxis - on eliquis full code reason for continued hospitalization:weakness, close monitoring while diuresing. Time Spent With Patient Time: Total time managing care of this patient today ____ minutes. Quality Stroke Does the patient have a stroke diagnosis?: No VTE Prior VTE?: No VTE Risk Level:: Medical - moderate - high VTE Device Contraindication: Treatment Not Indicated VTE Drug Contraindication: N/A - Med Ordered
[2022-11-26 11:25] VITALS: BP 130/58; PULSE 80; RESP 17; TEMP 36.7; O2SAT 97
--- NOTE | 2022-11-26 12:27 | P.DS_ITS ---
DS: Providers Provider Date of Service: 11/26/22 Date of admission: 11/18/22 02:35 Primary care physician: Edwin Allen MD Consults: 11/19/22 08:14 Consult to Cardiology Routine Consulting Provider: Oumar Vanessa Reason for consultation: CHF, multiple admits for the same in last month DS: Diagnosis Discharge Diagnosis (1) CHF (congestive heart failure): Status: Acute DS: Summary Hospital Course Hospital Course: Chief Complaint: sob 82F pmh chronic diastolic chf, chronic afib, cad s/p cabg, HTN, severe hiatal hernia with barretts esophogus, presented with sob. patient was admitted to [facility] 11/08/22-11/12/22 for CHF, was diuresed 3.5L and home lasix increased from 20mg to 40mg. patient reports overall feeling better than initial presentation, but still feels very sob, worse on exertion, associated with dry cough. pateint was seen by VNA, found to be dyspneic and hypoxic so sent to ED. in ED noted to have fevers, elevated bnp, trop, cxr with signs of congestion, fevers. Hospital course SIRS was investigated and nothing turned up--Flu, RSV, covid negative, respiatory panel negative, however was treated with empiric Abx for 7 days. Presently afebrile, breathing easy, o2 sat 97% on room air. Acute hypoxic respiratory failure--treated with IV Lasix and now on 40 po bid Physical debility PT recommends short term rehab ( STR,) hypoKalemia--corected and resolved. resolved permanent afib--controlled on Metoprolol and Eliquis for stroke prevention CAD/ s/p CABG, PVD eliquis, metoprolol, statin Barretts esophagitis--ppi She is agreable for short term rehab Time Spent with Patient Time attestation: Total time managing care of this patient today ____ minutes. Discharge coordination time: Greater than 30 minutes Quality: Safe Use of Opioids Does Pt have an Active Cancer Diagnosis on the Problem List?: No Quality: Stroke Does the patient have a stroke diagnosis?: No Physical Exam Vital Signs: Vital Signs: Last Vital Signs Temp 98.0 F 11/26/22 11:25 Pulse 80 11/26/22 11:25 Resp 17 11/26/22 11:25 BP 130/58 L 11/26/22 11:25 Pulse Ox 97 11/26/22 11:25 O2 Del Method 11/26/22 11:25 O2 Flow Rate 1 11/26/22 04:00 BMI result Body Mass Index 31.6 Discharge Plan Discharge Anticipated Discharge Date/Time: 11/26/22 12:33 Patient Disposition: Xfer SNF Discharge Diagnosis: SIRS, Heart failure Referrals: Po,Edwin Garcia MD [Primary Care Provider] - 1 Week Discharge Medications: New lisinopril 2.5 mg Tablet 2.5 mg PO DAILY Qty: 30 0RF Protocol: Hold for SBP< HOLD for SBP < : 90 furosemide 40 mg Tablet 40 mg PO BID@0900,1800 Qty: 60 0RF Protocol: Hold for SBP< HOLD for SBP < : 90 Continued omeprazole 20 mg capsule,delayed release(DR/EC) 20 mg PO BID 90 Days Qty: 180 0RF Eliquis 5 mg tablet 5 mg PO BID Qty: 180 3RF calcium carbonate 500 mg calcium (1,250 mg) Tablet 500 mg PO BID magnesium oxide 400 mg magnesium Tablet 400 mg PO DAILY atorvastatin 40 mg tablet 40 mg PO BEDTIME multivitamin Tablet 1 tab PO DAILY metoprolol tartrate 25 mg tablet 25 mg PO BID 90 Days Qty: 180 3RF Discontinued furosemide [Lasix] 40 mg tablet 40 mg PO DAILY Qty: 30 0RF Discharge Orders: Discharge Order (Routine); Ordered 11/26/22 Ordered By: Miguel Fonseca Diet: Advance to usual diet Activity on Discharge: As tolerated Stand Alone Forms: Patient Portal Discharge page Care Plan Goals: Full recovery from SIRS, heart failure and weakness Health Concerns: SIRS, heart failure, mitral regurgitation, weakness Plan of Treatment: Please note that Lasix has been increased to 40 twice a day, continue all other medication Plan is for you to go short term rehab and get stronger before going home Assessment: as above
[2022-11-26] MEDS: guaiFENesin DM 100/10/5 ML 5 ML SYRUP PO (12:52)
--- NOTE | 2022-11-26 12:57 | MHC.CM.PN ---
CM met with Patient at bedside and spoke with Daughter/DPOA/Aida over the phone at [phone]; both are in agreement with PT's recommendation for str (Patient's first choice SNF is [facility] [place] but they are unable to offer a bed). Patient will dc to [facility] today at 5PM via [facility]. IMM addressed with Aida over the phone and original has been left with Patient at bedside (A copy has also been placed on the chart).
[2022-11-26 15:31] LABS: COVID-19 Test Negative (Negative); IDNOW Serial# BCCEAD1C
== END 2022-11-26 18:05 | disposition skilled nursing facility (03) | DRG 291 ==
LOC: HO.ED 23:40 → HO.EDOVER 11-18 02:48 → HO.IMC 11-19 14:33
PROVIDERS: Family Medicine; Internal Medicine; Nurse Practitioner Family; Admitting Provider Internal Medicine; Emergency Provider Emergency Medicine; PCP Internal Medicine; Visit Provider Internal Medicine
DX: I11.0 Hypertensive heart disease with heart failure (principal); I50.33 Acute on chronic diastolic (congestive) heart failure; J96.01 Acute respiratory failure with hypoxia; I48.21 Permanent atrial fibrillation; R65.10 Systemic inflammatory response syndrome (SIRS) of non-infectious origin without acute organ dysfunction; I25.708 Atherosclerosis of coronary artery bypass graft(s), unspecified, with other forms of angina pectoris; K22.70 Barrett's esophagus without dysplasia; E87.6 Hypokalemia; I34.0 Nonrheumatic mitral (valve) insufficiency; E78.00 Pure hypercholesterolemia, unspecified; Z20.822 Contact with and (suspected) exposure to COVID-19; Z95.1 Presence of aortocoronary bypass graft; Z87.891 Personal history of nicotine dependence; Z91.040 Latex allergy status; Z88.8 Allergy status to other drugs, medicaments and biological substances; Z79.01 Long term (current) use of anticoagulants; Z79.899 Other long term (current) drug therapy
CPT/HCPCS: 36415; 71046; 71250; 74176; 80048; 80053; 80076; 81001; 83605; 83735; 83880; 84484; 85025; 85027; 87040; 87086; 87502; 87633; 87635; 93005; 93306; 97162; 99285; J0696; J1940; Q9957

== ENCOUNTER 2022-12-10 05:46 | Outpatient (REF) | payer MEDICARE, SELFPAY ==
[2022-10-20 12:25] VITALS: BP 116/64; BMI 28.6
[2022-12-10 05:49] LABS: MANUAL DIFF FLAG NO
[2022-12-10 06:24] LABS: Basophils Absolute Auto 0.1 X10*3/uL (0.0-0.2); Basophils Percent Auto 0.4 % (0-2); Eosinophils Absolute Auto 0.4 X10*3/uL (0.0-0.4); Eosinophils Percent Auto 3.2 % (0-4); Hematocrit 36.7 % (37.0-47.0); Hemoglobin 11.9 g/dl (12.0-16.0); Imm Gran Abs Auto 0.14 X10*3/uL (0.00-0.03); Imm Gran Pct Auto 1.2 % (0.0-0.4); Lymphocytes Percent Auto 8.4 % (20-40); Mean Corpuscular HGB Conc 32.4 g/dl (31.0-35.0); Mean Corpuscular Hemoglobin 28.2 pg (27.0-33.0); Mean Platelet Volume 9.9 fL (9.4-12.3); Monocytes Absolute Auto 0.8 X10*3/uL (0.1-1.2); Monocytes Percent Auto 7.2 % (2-11); Neutrophils Absolute Auto 9.2 x10*3/uL (2.0-8.3); Neutrophils Percent Auto 79.6 % (45-73); Platelet Count 269 X10*3/uL (160-400); Red Blood Count 4.22 X10*6/uL (4.20-5.50); Red Cell Distribution Width 15.4 % (11.0-16.0); White Blood Count 11.6 X10*3/uL (4.8-10.8)
[2022-12-10 06:40] LABS: Alanine Aminotransferase 23 U/L (0-31); Albumin Level 3.3 g/dL (3.5-5.0); Alkaline Phosphatase 126 U/L (39-117); Anion Gap 16 (12-20); Aspartate Amino Transferase 32 U/L (5-31); Bilirubin Total 1.2 mg/dL (0.0-1.0); Blood Urea Nitrogen 20 mg/dL (9-16); Calcium 9.3 mg/dL (8.4-10.2); Carbon Dioxide 26 mmol/L (22-29); Chloride 99 mmol/L (96-108); Estimated Glomerular Filt Rate 51; Glucose Random 87 mg/dL (60-115); Potassium 3.9 mmol/L (3.3-5.1); Sodium 137 mmol/L (135-145)
== END 2022-12-10 05:47 | disposition home or self-care (01) ==
LOC: HO.MMNH1L 05:46
PROVIDERS: Visit Provider Family Medicine
DX: Z02.2 Encounter for examination for admission to residential institution (principal)
CPT/HCPCS: 36415; 80053; 85025

== ENCOUNTER 2022-12-12 14:01 | Outpatient (REF) | payer MEDICARE, SELFPAY ==
[2022-10-20 12:25] VITALS: BP 116/64; BMI 28.6
[2022-12-12 16:56] LABS: CDiff Gene PCR NEGATIVE (Negative)
== END 2022-12-12 14:02 | disposition home or self-care (01) ==
LOC: HO.MMNH1L 14:01
PROVIDERS: Visit Provider Family Medicine
DX: I11.0 Hypertensive heart disease with heart failure (principal); I50.9 Heart failure, unspecified
CPT/HCPCS: 87493

== ENCOUNTER 2022-12-15 06:39 | Outpatient (REF) | payer MEDICARE, SELFPAY ==
[2022-10-20 12:25] VITALS: BP 116/64; BMI 28.6
[2022-12-15 06:23] LABS: MANUAL DIFF FLAG NO
[2022-12-15 07:12] LABS: Basophils Absolute Auto 0.1 X10*3/uL (0.0-0.2); Basophils Percent Auto 0.7 % (0-2); Eosinophils Absolute Auto 0.5 X10*3/uL (0.0-0.4); Hematocrit 32.1 % (37.0-47.0); Hemoglobin 10.6 g/dl (12.0-16.0); Imm Gran Abs Auto 0.01 X10*3/uL (0.00-0.03); Imm Gran Pct Auto 0.1 % (0.0-0.4); Lymphocytes Absolute Auto 1.6 X10*3/uL (1.2-4.9); Lymphocytes Percent Auto 23.6 % (20-40); Mean Corpuscular Hemoglobin 28.3 pg (27.0-33.0); Mean Corpuscular Volume 85.8 fL (80.0-98.0); Mean Platelet Volume 10.2 fL (9.4-12.3); Monocytes Absolute Auto 0.6 X10*3/uL (0.1-1.2); Monocytes Percent Auto 9.3 % (2-11); Neutrophils Percent Auto 59.3 % (45-73); Platelet Count 197 X10*3/uL (160-400); Red Blood Count 3.74 X10*6/uL (4.20-5.50); Red Cell Distribution Width 15.5 % (11.0-16.0); White Blood Count 6.7 X10*3/uL (4.8-10.8)
[2022-12-15 07:22] LABS: Anion Gap 10 (12-20); Blood Urea Nitrogen 20 mg/dL (9-16); Calcium 8.6 mg/dL (8.4-10.2); Carbon Dioxide 29 mmol/L (22-29); Chloride 101 mmol/L (96-108); Estimated Glomerular Filt Rate 44; Glucose Random 73 mg/dL (60-115); Potassium 3.4 mmol/L (3.3-5.1); Sodium 137 mmol/L (135-145)
== END 2022-12-15 06:40 | disposition home or self-care (01) ==
LOC: HO.MMNH1L 06:39
PROVIDERS: Visit Provider Family Medicine
DX: Z02.2 Encounter for examination for admission to residential institution (principal)
CPT/HCPCS: 36415; 80048; 85025

== ENCOUNTER 2022-12-22 06:45 | Outpatient (REF) | payer MEDICARE, SELFPAY ==
[2022-10-20 12:25] VITALS: BP 116/64; BMI 28.6
[2022-12-22 06:27] LABS: MANUAL DIFF FLAG NO
[2022-12-22 07:25] LABS: White Blood Count 7.3 X10*3/uL (4.8-10.8)
[2022-12-22 07:26] LABS: Basophils Absolute Auto 0.1 X10*3/uL (0.0-0.2); Basophils Percent Auto 0.7 % (0-2); Eosinophils Absolute Auto 0.4 X10*3/uL (0.0-0.4); Eosinophils Percent Auto 4.8 % (0-4); Hematocrit 34.8 % (37.0-47.0); Hemoglobin 11.4 g/dl (12.0-16.0); Imm Gran Abs Auto 0.01 X10*3/uL (0.00-0.03); Imm Gran Pct Auto 0.1 % (0.0-0.4); Lymphocytes Absolute Auto 1.5 X10*3/uL (1.2-4.9); Lymphocytes Percent Auto 19.9 % (20-40); Mean Corpuscular HGB Conc 32.8 g/dl (31.0-35.0); Mean Corpuscular Hemoglobin 27.8 pg (27.0-33.0); Mean Corpuscular Volume 84.9 fL (80.0-98.0); Mean Platelet Volume 10.4 fL (9.4-12.3); Monocytes Absolute Auto 0.6 X10*3/uL (0.1-1.2); Monocytes Percent Auto 8.5 % (2-11); Neutrophils Absolute Auto 4.8 x10*3/uL (2.0-8.3); Platelet Count 202 X10*3/uL (160-400); Red Cell Distribution Width 15.4 % (11.0-16.0)
[2022-12-22 07:42] LABS: Anion Gap 16 (12-20); Blood Urea Nitrogen 18 mg/dL (9-16); Calcium 8.6 mg/dL (8.4-10.2); Carbon Dioxide 27 mmol/L (22-29); Chloride 100 mmol/L (96-108); Estimated Glomerular Filt Rate 49; Glucose Random 83 mg/dL (60-115); Potassium 3.7 mmol/L (3.3-5.1); Sodium 139 mmol/L (135-145)
== END 2022-12-22 06:46 | disposition home or self-care (01) ==
LOC: HO.MMNH1L 06:45
PROVIDERS: Visit Provider Family Medicine
DX: Z02.2 Encounter for examination for admission to residential institution (principal)
CPT/HCPCS: 36415; 80048; 85025

== ENCOUNTER 2023-05-05 13:13 | Outpatient (REF) | payer MEDICARE, SELFPAY ==
[2022-10-20 12:25] VITALS: BP 116/64; BMI 28.6
[2023-05-05 14:12] LABS: MANUAL DIFF FLAG NO
[2023-05-05 14:27] LABS: Basophils Percent Auto 0.5 % (0-2); Eosinophils Absolute Auto 0.3 X10*3/uL (0.0-0.4); Eosinophils Percent Auto 3.8 % (0-4); Hematocrit 37.4 % (37.0-47.0); Hemoglobin 12.4 g/dl (12.0-16.0); Imm Gran Abs Auto 0.03 X10*3/uL (0.00-0.03); Imm Gran Pct Auto 0.4 % (0.0-0.4); Immature Retic Fraction 14.8 % (3.0-15.9); Lymphocytes Absolute Auto 1.3 X10*3/uL (1.2-4.9); Lymphocytes Percent Auto 16.7 % (20-40); Mean Corpuscular HGB Conc 33.2 g/dl (31.0-35.0); Mean Corpuscular Volume 90.6 fL (80.0-98.0); Monocytes Absolute Auto 0.6 X10*3/uL (0.1-1.2); Monocytes Percent Auto 8.5 % (2-11); Neutrophils Absolute Auto 5.3 x10*3/uL (2.0-8.3); Neutrophils Percent Auto 70.1 % (45-73); Platelet Count 242 X10*3/uL (160-400); Red Blood Count 4.13 X10*6/uL (4.20-5.50); Red Cell Distribution Width 14.4 % (11.0-16.0); Retic HGB Equivalent 34.7 pg (30.0-35.0); Reticulocyte Percent 2.6 % (0.5-1.8); Reticulocytes Absolute 0.108 X10*6/uL (0.026-0.095); White Blood Count 7.5 X10*3/uL (4.8-10.8)
[2023-05-05 15:31] LABS: Alanine Aminotransferase 11 U/L (0-31); Albumin Level 3.6 g/dL (3.5-5.0); Alkaline Phosphatase 124 U/L (39-117); Anion Gap 13 (12-20); Aspartate Amino Transferase 21 U/L (5-31); Bilirubin Total 0.8 mg/dL (0.0-1.0); Blood Urea Nitrogen 24 mg/dL (9-16); Calcium 9.7 mg/dL (8.4-10.2); Carbon Dioxide 30 mmol/L (22-29); Chloride 99 mmol/L (96-108); Cholesterol 208 mg/dL; Estimated Glomerular Filt Rate 35; Glucose Random 99 mg/dL (60-115); HDL Cholesterol 53 mg/dL; Iron 70 mcg/dL (30-160); LDL Cholesterol Calculated 138 mg/dl; Percent Iron Saturation 20 % (15-50); Potassium 4.1 mmol/L (3.3-5.1); Sodium 138 mmol/L (135-145); Total Iron Binding Capacity 342 mcg/dL (228-428); Total Protein 7.2 g/dL (6.5-8.0); Triglycerides 87 mg/dL; Unsaturated Iron Binding 272 ug/dL
[2023-05-05 15:53] LABS: B Type Natriuretic Peptide 315 pg/mL (<100)
[2023-05-05 16:03] LABS: Ferritin 80 ng/mL (10-250); Folate 18.6 ng/mL (> or = 4.0); Free T4 (Free Thyroxine) 1.26 ng/dL (0.71-1.85); Thyroid Stimulating Hormone 0.24 uIU/mL (0.32-4.0); Vitamin B12 336 pg/mL (200-900)
[2023-05-05 17:36] LABS: Appearance Urine Clear; Color Urine Yellow; Glucose Urine UA Negative (Negative); Leukocyte Esterase Urine Negative (Negative); Nitrite Urine Negative (Negative); Urine Blood Negative (Negative); Urine Ketones Negative (Negative); Urine Protein Negative (Neg-Trace)
[2023-05-05 17:42] LABS: Bacteria Urine Trace (None Seen); Hyaline Casts Urine 0-2 /LPF (0-2); Squamous Epithelial Cell Urine 0-2 /HPF (0-2); WBC Urine 0-5 /HPF (0-5)
== END 2023-05-05 13:14 | disposition home or self-care (01) ==
LOC: HO.LAB 13:13
PROVIDERS: PCP Internal Medicine; Referring Provider Internal Medicine; Visit Provider Internal Medicine
DX: I11.0 Hypertensive heart disease with heart failure (principal); I50.32 Chronic diastolic (congestive) heart failure; I25.10 Atherosclerotic heart disease of native coronary artery without angina pectoris; I48.19 Other persistent atrial fibrillation; I73.9 Peripheral vascular disease, unspecified; I34.0 Nonrheumatic mitral (valve) insufficiency; Z95.1 Presence of aortocoronary bypass graft; E78.00 Pure hypercholesterolemia, unspecified
CPT/HCPCS: 36415; 80053; 80061; 81001; 82607; 82728; 82746; 83540; 83880; 84439; 84443; 85025; 85045; 99212

== ENCOUNTER 2023-06-12 13:02 | Outpatient (AMB) | payer MEDICARE, SELFPAY ==
[2022-10-20 12:25] VITALS: BP 116/64; BMI 28.6
[2023-06-12 13:06] VITALS: BP 118/68; PULSE 73; O2SAT 93; BMI 30.2
--- NOTE | 2023-06-12 13:06 | A.OFFPC_ITS ---
Vital Signs 06/12/23 13:06 Height 5 ft Weight 154 lb 8.705 oz BMI 30.2 BP 118/68 Blood Pressure Location Lt brachial Position Sitting Pulse 73 Pulse Source Pulse Oximeter Pulse Oximetry (%) 93 Oxygen Delivery Method Room Air Intake Visit Reasons: 2 week f/u Allergies latex Allergy (Mild, Verified 06/12/23 13:06) rash simvastatin [Simvastatin] Allergy (Mild, Verified 06/12/23 13:06) NAUSEA Tobacco use date assessed: 02/25/23 Fall risk assessment: No Falls in past year Last assessed Fall Risk: 06/12/23 Dental Screening Dental Screen Date: 06/12/23 Did you have a dental visit in the last 12 months?: No Did you have a dental problem in the last 6 months where you did not have access to dental care?: No Was dental information given to patient?: No (No teeth) HPI 2 week f/u HPI Details 83-year-old female with multiple medical problems persistent atrial fibrillation hypercholesterolemia hypertension atherosclerotic cardiovascular disease congestive heart failure Roger's esophagus and renal insufficiency last seen in April 2023. Patient was last seen by Cardiology 05/05/2020 patient has a history of status post left atrial appendage ligation with arterial clip during coronary artery bypass graft patient does have severe mitral calcification with severe mitral regurg but not a surgical candidate. Has been having a cough for couple of months now and does not matter on positioning no fevers denies any nausea or vomiting patient does have some cognitive impairment and so does not remember. Patient denies any phlegm bring but this has prompted them for concerns. Patient did have some blood work showing renal insufficiency and low TSH and advised to follow-up on the blood work. [facility] Medical History 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 CHF (congestive heart failure) Chronic heart failure with preserved ejection fraction Cognitive impairment Colitis Coronary artery disease of bypass graft of [place] heart with stable angina pectoris Essential hypertension Hypercholesterolemia Mitral valve regurgitation PAD (peripheral artery disease) Peripheral vascular disease Persistent atrial fibrillation Subclavian artery stenosis, left Surgical History History of coronary artery bypass graft (~06/2020) Status post aorto-coronary artery bypass graft Family History Father No problems noted. Mother No problems noted. Social History Household Members: Family Housing: House Do you presently have visiting nurse or other home services: Yes (pt visits) Alcohol intake: never Patient Tobacco Use Status: Former Tobacco user Quit Date: 1958 Tobacco use type: Cigarette e-Cigarette/Vaping Use: Never Used Second Hand Smoke Exposure: No service: No Current occupational status: retired Cognitive needs: Yes Hearing needs: No Vision needs: Yes Questionnaire PHQ-9 Over the last 2 weeks, how often have you been bothered by any of the following problems? 1. Little interest or pleasure in doing things: not at all 2. Feeling down, depressed, or hopeless: not at all 3. Trouble falling or staying asleep, or sleeping too much: not at all 4. Feeling tired or having little energy: not at all 5. Poor appetite or overeating: not at all 6. Feeling bad about yourself - or that you are a failure or have let yourself or your family down: not at all 7. Trouble concentrating on things, such as reading the newspaper or watching television: not at all 8. Moving or speaking so slowly that other people could have noticed. Or the opposite - being so fidgety or restless that you have been moving around a lot more than usual: not at all 9. Thoughts that you would be better off or of hurting yourself in some way: not at all Total score: 0 Depression Screening Interpretation: Negative Source: Developed by Drs. Deyvi Benson, Silver Pablo and colleagues, with an educational kelley from [employer]. Thrive Questionnaire Date Thrive assessed: 02/25/23 AUDIT C Alcohol Use Questionnaire (AUDIT-C) 1. How often do you have a drink containing alcohol?: Monthly or less 2. How many drinks containing alcohol do you have on a typical day when you are drinking?: 1 or 2 3. How often do you have six or more drinks on one occasion?: Never Total Score: 1 LEO-7 AMB Questionnaire LEO-7 Date LEO - 7 assessed: 02/25/23 Source: Developed by Drs. Deyvi Benson, Silver Pablo and colleagues, with an educational kelley from [employer]. Physical exam (Primary Care) Vital Signs: Oxygen Delivery Method Room Air 06/12/23 13:06 BMI result Body Mass Index 30.2 Tobacco/Smoking Status: Tobacco use Status Tobacco use date assessed 02/25/23 05/29/23 13:28 Patient Tobacco Use Status Former Tobacco user 05/29/23 13:28 Tobacco use type Cigarette 05/29/23 13:28 e-Cigarette/Vaping Use Never Used 05/29/23 13:28 Depression Screening Interpretation: Negative Thrive Assessment: Date of Thrive Assessment Date Thrive assessed 02/25/23 05/29/23 13:28 Const General: alert; No acute distress Eyes Conjunctivae: conjunctivae normal Resp Auscultation: clear to auscultation bilaterally Cardio Rate: regular rate Rhythm: regular rhythm GI Inspection: Yes normal to inspection Extrem General: Yes normal to inspection and No edema Assessment and Plan Assessment & Plan (1) Atherosclerotic cardiovascular disease: Code(s): I25.10 - Atherosclerotic heart disease of [place] coronary artery without angina pectoris Plan: Control the cholesterol, weight, blood pressure (2) Essential hypertension: Code(s): I10 - Essential (primary) hypertension Plan: Continue with blood pressure medication. Decrease salt intake and exercise patient is on lisinopril 5 mg once a day and metoprolol 25 mg twice a day (3) Chronic heart failure with preserved ejection fraction: Code(s): I50.32 - Chronic diastolic (congestive) heart failure Plan: Continue with diuretic with furosemide (4) Roger's esophagus: Comment: low grade dysplasia August 2012, July 2015, September 2017 Code(s): K22.70 - Roger's esophagus without dysplasia Qualifiers: Roger's esophagus type: without dysplasia Qualified Code(s): K22.70 - Roger's esophagus without dysplasia Plan: Avoid the foods that causes that usually spicy foods, tomato products, juices, coffee, soda and foods that your sensitive to. After eating do not lie down, allow 3-4 hours before in lie down. And keep the head of bed above 30 degrees to avoid the acid from going up. On omeprazole 20 mg twice a day (5) Renal insufficiency: Code(s): N28.9 - Disorder of kidney and ureter, unspecified Plan: Keep well hydrated avoid NSAIDs will continue to monitor renal function (6) Persistent atrial fibrillation: Code(s): I48.19 - Other persistent atrial fibrillation Plan: Continue with anticoagulation (7) Cough: Code(s): R05.9 - Cough, unspecified Plan: Test done revealed negative results will do a chest x-ray and try allergy medication once a day (8) Abnormal TSH: Code(s): R79.89 - Other specified abnormal findings of blood chemistry Plan: Retesting advised Orders: Orders Thyroid Stimulating Hormone Today R79.89 - Other specified abnormal findings of blood chemistry Free T4 (Free Thyroxine) Today R79.89 - Other specified abnormal findings of blood chemistry XR chest 2V Today R05.9 - Cough, unspecified Medications: New loratadine 10 mg PO DAILY 30 tabs 0RF R05.9 - Cough, unspecified Coding Level of Care Code Est Pt Level 4 (54297) Diagnoses Atherosclerotic cardiovascular disease I25.10 Essential hypertension I10 Chronic heart failure with preserved ejection fraction I50.32 Roger's esophagus K22.70 Roger's esophagus type: without dysplasia Renal insufficiency N28.9 Persistent atrial fibrillation I48.19 Cough R05.9 Abnormal TSH R79.89
== END 2023-06-12 14:32 | disposition home or self-care (01) ==
PROVIDERS: PCP Internal Medicine; Visit Provider Internal Medicine
DX: I11.0 Hypertensive heart disease with heart failure (principal); I50.32 Chronic diastolic (congestive) heart failure; K22.70 Barrett's esophagus without dysplasia; I48.19 Other persistent atrial fibrillation; I25.10 Atherosclerotic heart disease of native coronary artery without angina pectoris; N28.9 Disorder of kidney and ureter, unspecified; R05.9 Cough, unspecified; R79.89 Other specified abnormal findings of blood chemistry
CPT/HCPCS: 99214

== ENCOUNTER 2023-06-12 13:36 | Outpatient (REF) | payer MEDICARE, SELFPAY ==
[2022-10-20 12:25] VITALS: BP 116/64; BMI 28.6
--- NOTE | ~2023-06-12 | XR_ITS ---
EXAMINATION: XR CHEST CLINICAL INFORMATION: Cough COMPARISON: Chest radiograph dated 11/17/2022. TECHNIQUE: 2 views of the chest were obtained. FINDINGS: Sternal wires and a left atrial appendage clip are redemonstrated. Again seen is a large hiatal hernia with the entirety of the stomach in the chest. Chronic coarse interstitial prominence is unchanged. Linear atelectasis vs. scar seen in the left superior hilum. No consolidation. Normal heart size. Tortuous calcified aorta. No acute osseous abnormality. XR/XR chest 2V IMPRESSION: Similar appearance of chronic coarse interstitial prominence. No definite pneumonia. Large hiatal hernia.
[2023-06-12 15:12] LABS: Anion Gap 12 (12-20); Blood Urea Nitrogen 24 mg/dL (9-16); Calcium 10.1 mg/dL (8.4-10.2); Carbon Dioxide 31 mmol/L (22-29); Chloride 101 mmol/L (96-108); Estimated Glomerular Filt Rate 40; Glucose Random 96 mg/dL (60-115); Potassium 4.5 mmol/L (3.3-5.1); Sodium 139 mmol/L (135-145)
[2023-06-12 15:30] LABS: Free T4 (Free Thyroxine) 1.18 ng/dL (0.71-1.85); Thyroid Stimulating Hormone 0.41 uIU/mL (0.32-4.0)
== END 2023-06-12 13:37 | disposition home or self-care (01) ==
LOC: HO.XRAY 13:36
PROVIDERS: PCP Internal Medicine; Visit Provider Internal Medicine
DX: R05.9 Cough, unspecified (principal); I50.32 Chronic diastolic (congestive) heart failure; R79.89 Other specified abnormal findings of blood chemistry
CPT/HCPCS: 36415; 71046; 80048; 84439; 84443

== ENCOUNTER 2023-09-29 14:24 | Outpatient (REF) | payer MEDICARE, SELFPAY ==
[2022-10-20 12:25] VITALS: BP 116/64; BMI 28.6
--- NOTE | ~2023-09-29 | US_ITS ---
EXAMINATION: Noninvasive assessment of the bilateral lower extremities with ARTERIAL DUPLEX and ANKLE BRACHIAL INDICES (ABIs). CLINICAL INFORMATION: Peripheral vascular disease TECHNIQUE: Duplex Doppler techniques with waveform analysis and measurement of velocities in the bilateral common femoral, profunda femoris, superficial femoral, popliteal and tibial arteries were performed. Additionally, ankle pulse volume recordings, ankle pressure measurements and ankle brachial indices were obtained of the lower extremity arterial system bilaterally. The study was performed only at rest. COMPARISON: 08/25/2022 FINDINGS: DIRECT DUPLEX DOPPLER FINDINGS: RIGHT LEG: Common femoral artery: 195 cm/s, phasicity: Biphasic Profunda femoris artery: 68.0 cm/s, phasicity: Biphasic Superficial femoral artery (proximal): 86.3 cm/s, phasicity: Biphasic Superficial femoral artery (mid): 56.2 cm/s, phasicity: Biphasic Superficial femoral artery (distal): 69.8 cm/s, phasicity: Biphasic Popliteal artery: 67.1 cm/s, phasicity: Triphasic Posterior tibial artery: 63.9 cm/s, phasicity: Triphasic Peroneal artery: 68.9 cm/s, phasicity: Biphasic Anterior tibial artery: 23.7 cm/s, phasicity: Triphasic Dorsalis pedis artery: 12 cm/s, phasicity:Monophasic LEFT LEG: Common femoral artery: 165 cm/s, phasicity: Biphasic Profunda femoris artery: 90.7 cm/s, phasicity: Biphasic Superficial femoral artery (proximal): 121 cm/s, phasicity: Biphasic Superficial femoral artery (mid): 60.3 cm/s, phasicity: Biphasic Superficial femoral artery (distal): 60.3 cm/s, phasicity: Biphasic Popliteal artery: 67.2 cm/s, phasicity: Biphasic Posterior tibial artery: 68.9 cm/s, phasicity: Biphasic Peroneal artery: 101 cm/s, phasicity: Biphasic Anterior tibial artery: 47.2 cm/s, phasicity: Biphasic Dorsalis pedis artery: 42.6 cm/s, phasicity: Biphasic ANKLE-BRACHIAL INDEX: Right: 1.75? Left: 1.4 ANKLE PRESSURES: Right: PT 213 Left: PT?171 ANKLE PVR WAVEFORMS: Right: Normal Left: Normal US/US arterial duplex LE BI IMPRESSION: Right leg: Supranormal ankle-brachial index with normal PVR waveform. Patent arterial flow seen within the right lower extremity as described above. Dampened waveform is seen in the right dorsalis pedis artery and anterior tibial artery consistent with small vessel disease. Left leg: Supranormal ankle-brachial index with normal PVR waveform. Widely patent arterial flow throughout the left lower extremity as described above. YURI Reference: - >1.4 = calcified vessels - 0.9 - 1.4 = normal - no significant arterial disease - 0.7 - 0.89 = mild peripheral arterial disease - 0.51 - 0.69 = moderate peripheral arterial disease - ? 0.50 = severe peripheral arterial disease - < .30 = critical arterial disease
== END 2023-09-29 14:25 | disposition home or self-care (01) ==
LOC: HO.US 14:24
PROVIDERS: PCP Internal Medicine; Visit Provider Surgery Vascular Surgery
DX: I70.213 Atherosclerosis of native arteries of extremities with intermittent claudication, bilateral legs (principal)
CPT/HCPCS: 93923; 93925

== ENCOUNTER 2023-10-13 11:05 | Outpatient (AMB) | payer MEDICARE, SELFPAY ==
[2022-10-20 12:25] VITALS: BP 116/64; BMI 28.6
--- NOTE | 2023-10-13 11:07 | MHC.OFFVIS ---
Intake Intake Visit Reasons: Follow Up 09/29 Arterial Intake Note: pt here for a FU for PAD s/p Arterial US on 09/29/23 Pt states no current leg pain still has trouble walking do to weakness in legs she does also say that her feet are always super cold to the touch Allergies latex Allergy (Mild, Verified 10/13/23 11:11) rash simvastatin [Simvastatin] Allergy (Mild, Verified 10/13/23 11:11) NAUSEA HPI Follow Up 09/29 Arterial HPI Details Very pleasant 83-year-old female presents for routine surveillance follow-up with noninvasive testing. She is able to stand and walk around the house. She is able to go about 20 ft at most. She did present to the office visit in wheelchair. Overall no significant issues. She presents with son for follow-up. [facility] Medical History (Updated 10/13/23 @ 11:29 by Brian Shanks MD) PAD (peripheral artery disease) Mitral valve regurgitation Persistent atrial fibrillation CHF (congestive heart failure) Peripheral vascular disease Essential hypertension Chronic heart failure with preserved ejection fraction Atherosclerotic cardiovascular disease Cognitive impairment Coronary artery disease of bypass graft of [place] heart with stable angina pectoris Subclavian artery stenosis, left Colitis Bilateral femoral artery stenosis Hypercholesterolemia Roger's esophagus Surgical History Status post aorto-coronary artery bypass graft History of coronary artery bypass graft (~06/2020) Family History Father No problems noted. Mother No problems noted. Social History Household Members: Family Housing: House Do you presently have visiting nurse or other home services: Yes (pt visits) Alcohol intake: never Patient Tobacco Use Status: Former Tobacco user Quit Date: 1959 Tobacco use type: Cigarette e-Cigarette/Vaping Use: Never Used Second Hand Smoke Exposure: No service: No Current occupational status: retired Cognitive needs: Yes Hearing needs: No Vision needs: Yes Review of Systems Const All systems reviewed & are unremarkable except as noted in HPI and below Reports no additional complaints ENT Reports Normal hearing present Card Denies chest pain, Denies chest pain at rest, Denies chest pain with activity and Denies pedal edema Resp Denies cough GI Denies abdominal pain Musc Denies abnormal gait, Denies muscle cramps and Denies radiating pain into limb Skin/Breast Denies skin ulcer and Denies wounds Neuro Reports Normal hearing present and Denies abnormal gait Psych Reports no additional complaints Physical Exam Const General: cooperative, healthy appearing and comfortable Orientation/consciousness: oriented to person, oriented to place and oriented to time HEENT Head: Yes normal to inspection Neck Neck: Yes normal visual inspection Carotids: no bruits Chest Chest palpation & inspection: normal inspection of the chest Resp Effort & Inspection: normal respiratory effort and able to speak in complete sentences Auscultation: clear to auscultation bilaterally, no crackles, no rales, no rhonchi and no wheezes Cardio Other: Bilateral DP signals Rate: regular rate Rhythm: regular rhythm Heart sounds: S1 normal heart sound present and S2 normal heart sound present Bruits: no carotid bruits Peripheral pulses: Peripheral pulses 2+ throughout GI Inspection: Yes normal to inspection Skin Wounds: no wounds Hair: normal Neuro General: oriented to person, oriented to place and oriented to time Cranial nerves: Yes CN's II-XII intact bilaterally and Yes Normal hearing present Cognition (Neuro): normal cognition Motor exam (neuro): 5/5 motor strength present throughout Extrem Other: venous exam: No significant superficial varicosities or spider telangiectasias, minimal edema General: No clubbing, No cyanosis and No edema Psych Appearance: grossly normal Mental Status: mental status grossly normal Speech and movement: Normal speech and movement present Results Reviewed Results Reviewed: Noninvasive arterial testing dated 09/29/2023 demonstrates YURI on the right of 1.75 and on the left of 1.4. Both are artifactually elevated. On direct ultrasound it appears to be more small vessel disease. Written report and images were reviewed. Assessment & Plan Assessment & Plan (1) PAD (peripheral artery disease): Comment: 02/2018 - right femoral endarterectomy with thrombectomy.(Dr. Abbasi) [facility] Code(s): I73.9 - Peripheral vascular disease, unspecified Plan: In short patient has stable claudication. She does not ambulate much at the current time. She was encouraged to ambulate a little bit more. Due to her overall age in status I would not intervene unless it was critical limb ischemia. I did discuss this with the son who was at bedside. They are in agreement. She will follow up with us in approximately 1 year's time or earlier if there are interval changes. She will have surveillance arterial ultrasounds. Thank you for allowing us to assist in her care. If there are questions or concerns please do not hesitate to contact us. Orders: Orders US arterial duplex LE BI 364 Days I73.9 - Peripheral vascular disease, unspecified Coding Level of Care Code Est Pt Level 4 (20391) Diagnoses PAD (peripheral artery disease) I73.9
== END 2023-10-13 11:22 | disposition home or self-care (01) ==
PROVIDERS: PCP Internal Medicine; Visit Provider Surgery Vascular Surgery
DX: I73.9 Peripheral vascular disease, unspecified (principal)
CPT/HCPCS: 99213

== ENCOUNTER → 2023-10-13 11:05 | Outpatient (BNVA) | payer MEDICARE, SELFPAY ==
[2022-10-20 12:25] VITALS: BP 116/64; BMI 28.6
== END ==
PROVIDERS: PCP Internal Medicine; Visit Provider Surgery Vascular Surgery
DX: I73.9 Peripheral vascular disease, unspecified (principal)
CPT/HCPCS: 99212

== ENCOUNTER 2023-11-05 13:17 | Outpatient (AMB) | payer MEDICARE, SELFPAY ==
[2022-10-20 12:25] VITALS: BP 116/64; BMI 28.6
--- NOTE | 2023-11-05 13:23 | A.OFFVIS_ITS ---
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: No Accompanied by: Son Allergies latex Allergy (Mild, Verified 11/05/23 13:24) rash simvastatin [Simvastatin] Allergy (Mild, Verified 11/05/23 13:24) NAUSEA Medication List - Last Reconciled 11/05/23 by Emory Hargrove MD apixaban (Eliquis) 5 mg PO BID atorvastatin 40 mg PO BEDTIME calcium carbonate 500 mg PO BID furosemide 40 mg See Protocol PO BID@0900,1800 90 days lisinopril 5 mg PO DAILY loratadine 10 mg PO DAILY magnesium oxide 400 mg PO DAILY metoprolol tartrate 25 mg PO BID 90 days multivitamin 1 tab PO DAILY omeprazole 20 mg PO BID 90 days HPI HPI Comments History of Present Illness Details Bethany returns for follow-up. Has a history of coronary disease, history of coronary artery bypass surgery, chronic heart failure with preserved ejection fraction as well as chronic mitral regurgitation. Son is also here for the appointment. Overall, they state that she is feeling fine. No complaints from cardiac standpoint. Seems to be getting along okay. [facility] Medical History (Updated 10/13/23 @ 11:29 by Brian Shanks MD) PAD (peripheral artery disease) Mitral valve regurgitation Persistent atrial fibrillation CHF (congestive heart failure) Peripheral vascular disease Essential hypertension Chronic heart failure with preserved ejection fraction Atherosclerotic cardiovascular disease Cognitive impairment Coronary artery disease of bypass graft of [place] heart with stable angina pe ctoris Subclavian artery stenosis, left Colitis Bilateral femoral artery stenosis Hypercholesterolemia Roger's esophagus Surgical History Status post aorto-coronary artery bypass graft History of coronary artery bypass graft (~06/2020) Family History Father No problems noted. Mother No problems noted. Social History Household Members: Family Housing: House Do you presently have visiting nurse or other home services: Yes (pt visits) Alcohol intake: never Patient Tobacco Use Status: Former Tobacco user Quit Date: 1958 Tobacco use type: Cigarette e-Cigarette/Vaping Use: Never Used Second Hand Smoke Exposure: No service: No Current occupational status: retired Cognitive needs: Yes Hearing needs: No Vision needs: Yes Review of Systems Const Denies weakness ENT Denies dizziness Card Denies chest pain, Denies chest pain with activity, Denies syncope, Denies rapid heart rate, Denies pedal edema, Denies edema, Denies leg edema, Denies lightheadedness, Denies palpitations, Denies dyspnea, Denies dyspnea on exertion and Denies orthopnea Resp Denies cough, Denies dyspnea and Denies dyspnea on exertion GI Denies hematochezia and Denies change in stool character Musc Denies abnormal gait, Denies muscle cramps, Denies muscle weakness, Denies numbness, Denies radiating pain into limb and Denies tingling Neuro Denies abnormal gait, Denies dizziness, Denies syncope, Denies numbness, Denies tingling and Denies weakness Endo Denies palpitations Physical Exam Vital Signs: Last Vital Signs Pulse 80 11/05/23 13:27 BP 90/54 L 11/05/23 13:27 Const General: comfortable and no acute distress Orientation/consciousness: patient oriented x3 HEENT Other: Unremarkable Head: Yes normal to inspection Neck Neck: Yes normal visual inspection Chest Chest palpation & inspection: normal inspection of the chest Resp Auscultation: clear to auscultation bilaterally Cardio Palpation: normal PMI Heart sounds: S1 normal heart sound present, S2 normal heart sound present, no gallops, Murmur heart sound present systolic at the apex and no rubs GI Palpation (GI): Soft to palpation Back/Spine/Pelvis Other: unremarkable Skin General skin exam: no rashes or lesions noted Neuro General: patient oriented x3 Extrem General: Yes normal to inspection Psych Mental Status: mental status grossly normal Office Procedures EKG Details: EKG with atrial fibrillation at 80/Min; old anteroseptal infarct; rightward axis. Prior EKG looks similar. [id number], Complete Assessment & Plan Assessment & Plan (1) Chronic heart failure with preserved ejection fraction: Code(s): I50.32 - Chronic diastolic (congestive) heart failure Plan: No heart failure symptoms or signs at this time. On regular diuretics. No changes. (2) Atherosclerotic cardiovascular disease: Code(s): I25.10 - Atherosclerotic heart disease of [place] coronary artery without angina pectoris Plan: Clinically, he has got no angina. Not on aspirin but she is on Eliquis. LDL level seem fairly variable. They are ranging from [address]. Not clear why the discrepancy. She seems to be on statins and they states she is taking it. Not making any changes today. Probably recheck in a few months. (3) Status post aorto-coronary artery bypass graft: Code(s): Z95.1 - Presence of aortocoronary bypass graft Plan: Status post CABG x2; fung to LAD and SVG to OM2- 06/2020. (4) Persistent atrial fibrillation: Code(s): I48.19 - Other persistent atrial fibrillation Plan: Continue anticoagulation. She is also status post left atrial appendage ligation with atrial clip during CABG. (5) Non-rheumatic mitral regurgitation: Code(s): I34.0 - Nonrheumatic mitral (valve) insufficiency Plan: Last echocardiogram with severe mitral calcification with severe mitral regurgitation. She is really not a surgical candidate. She does not have any symptoms either. (6) Essential hypertension: Code(s): I10 - Essential (primary) hypertension Plan: Blood pressure actually on the lower side today. No changes for now. (7) Peripheral vascular disease: Code(s): I73.9 - Peripheral vascular disease, unspecified Plan: History of ischemic right leg treated at [facility]. Used to see vascular surgery in [place] in the past, where she has undergone other procedures. Then Dr. Spencer. Follow-up as needed. Plan Discussed with son who is here with her. Orders: Orders Cardiac Rehab Today I50.32 - Chronic diastolic (congestive) heart failure Coding Level of Care Code Est Pt Level 4 (83359) Diagnoses Chronic heart failure with preserved ejection fraction I50.32 Atherosclerotic cardiovascular disease I25.10 Status post aorto-coronary artery bypass graft Z95.1 Persistent atrial fibrillation I48.19 Non-rheumatic mitral regurgitation I34.0 Essential hypertension I10 Peripheral vascular disease I73.9 CPT Codes EKG - CPT: [id number], Complete ([id number])
[2023-11-05 13:27] VITALS: BP 90/54; PULSE 80
== END 2023-11-05 13:46 | disposition home or self-care (01) ==
PROVIDERS: PCP Internal Medicine; Visit Provider Internal Medicine
DX: I50.32 Chronic diastolic (congestive) heart failure (principal); I25.10 Atherosclerotic heart disease of native coronary artery without angina pectoris; Z95.1 Presence of aortocoronary bypass graft; I48.19 Other persistent atrial fibrillation; I34.0 Nonrheumatic mitral (valve) insufficiency; I10 Essential (primary) hypertension; I73.9 Peripheral vascular disease, unspecified
CPT/HCPCS: 93010; 99214

== ENCOUNTER → 2023-11-05 13:17 | Outpatient (BNVA) | payer MEDICARE, SELFPAY ==
[2022-10-20 12:25] VITALS: BP 116/64; BMI 28.6
== END ==
PROVIDERS: PCP Internal Medicine; Visit Provider Internal Medicine
DX: I11.0 Hypertensive heart disease with heart failure (principal); I50.32 Chronic diastolic (congestive) heart failure; I25.10 Atherosclerotic heart disease of native coronary artery without angina pectoris; I48.19 Other persistent atrial fibrillation; I73.9 Peripheral vascular disease, unspecified; I34.0 Nonrheumatic mitral (valve) insufficiency; Z95.1 Presence of aortocoronary bypass graft
CPT/HCPCS: 93005; 99212

== ENCOUNTER 2024-05-10 13:23 | Outpatient (AMB) | payer MEDICARE, SELFPAY ==
[2022-10-20 12:25] VITALS: BP 116/64; BMI 28.6
[2024-05-10 13:28] VITALS: BP 100/60; PULSE 78; BMI 31.4
--- NOTE | 2024-05-10 13:28 | MHC.OFFVIS ---
Vital Signs 05/10/24 13:28 Height 5 ft Weight 161 lb BMI 31.4 BP 100/60 Blood Pressure Location Lt brachial Position Sitting Pulse 78 Intake Visit Reasons: 6 months follow up Medical Supply Technician Required: No Accompanied by: Daughter Allergies latex Allergy (Mild, Verified 11/05/23 13:24) rash simvastatin [Simvastatin] Allergy (Mild, Verified 11/05/23 13:24) NAUSEA Medication List - Last Reconciled 05/10/24 by Emory Hargrove MD apixaban (Eliquis) 5 mg PO BID atorvastatin 40 mg PO BEDTIME calcium carbonate 500 mg PO BID furosemide 40 mg See Protocol PO BID@0900,1800 90 days lisinopril 5 mg PO DAILY magnesium oxide 400 mg PO DAILY metoprolol tartrate 25 mg PO BID 90 days multivitamin 1 tab PO DAILY omeprazole 20 mg PO BID 90 days HPI Comments Details: Bethany returns for follow-up. Has a history of coronary disease, history of coronary artery bypass surgery, chronic heart failure with preserved ejection fraction as well as chronic mitral regurgitation. Overall, feeling good. No specific complaints like angina or in fact anything cardiac sounding. [facility] Medical History (Updated 10/13/23 @ 11:29 by Brian Shanks MD) PAD (peripheral artery disease) Mitral valve regurgitation Persistent atrial fibrillation CHF (congestive heart failure) Peripheral vascular disease Essential hypertension Chronic heart failure with preserved ejection fraction Atherosclerotic cardiovascular disease Cognitive impairment Coronary artery disease of bypass graft of [place] heart with stable angina pectoris Subclavian artery stenosis, left Colitis Bilateral femoral artery stenosis Hypercholesterolemia Roger's esophagus Surgical History Status post aorto-coronary artery bypass graft History of coronary artery bypass graft (~06/2020) Family History Father No problems noted. Mother No problems noted. Social History Household Members: Family Housing: House Do you presently have visiting nurse or other home services: Yes (pt visits) Alcohol intake: never Patient Tobacco Use Status: Former Tobacco user Tobacco use type: Cigarette e-Cigarette/Vaping Use: Never Used Second Hand Smoke Exposure: No service: No Current occupational status: retired Cognitive needs: Yes Hearing needs: No Vision needs: Yes Review of Systems Const Denies chills, Denies fatigue, Denies fever(s), Denies frequent falls, Denies weakness, Denies weight gain and Denies weight loss ENT Denies dizziness Card Denies chest pain, Denies leg edema, Denies lightheadedness, Denies palpitations, Denies dyspnea and Denies dyspnea on exertion Resp Denies cough, Denies dyspnea and Denies dyspnea on exertion GI Denies hematochezia Musc Denies abnormal gait, Denies muscle weakness, Denies numbness, Denies radiating pain into limb and Denies tingling Neuro Denies abnormal gait, Denies dizziness, Denies frequent falls, Denies numbness, Denies tingling and Denies weakness Endo Denies fatigue and Denies palpitations Physical Exam Vital Signs: Last Vital Signs Pulse 78 05/10/24 13:28 BP 100/60 05/10/24 13:28 BMI result Body Mass Index 31.4 Const General: comfortable and no acute distress Orientation/consciousness: patient oriented x3 HEENT Other: Unremarkable Head: Yes normal to inspection Neck Neck: Yes normal visual inspection Chest Chest palpation & inspection: normal inspection of the chest Resp Auscultation: clear to auscultation bilaterally Cardio Palpation: normal PMI Heart sounds: S1 normal heart sound present, S2 normal heart sound present, no gallops, no murmurs and no rubs GI Palpation (GI): Soft to palpation Back/Spine/Pelvis Other: unremarkable Skin General skin exam: no rashes or lesions noted Neuro General: patient oriented x3 Extrem General: Yes normal to inspection Psych Mental Status: mental status grossly normal Office Procedures EKG Details: EKG with atrial fibrillation at a rate of 78/Min; leftward axis; left bundle-branch block type pattern. [id number], Complete Assessment & Plan Assessment & Plan (1) Chronic heart failure with preserved ejection fraction: Code(s): I50.32 - Chronic diastolic (congestive) heart failure Category: Medical Plan: On diuretics. Stable. They would like to resume cardiac rehabilitation. (2) Atherosclerotic cardiovascular disease: Code(s): I25.10 - Atherosclerotic heart disease of [place] coronary artery without angina pectoris Category: Medical Plan: Stable. Clinically, no angina. Continue beta-blockers and statins. Variable LDL levels. May recheck in due course. (3) Status post aorto-coronary artery bypass graft: Code(s): Z95.1 - Presence of aortocoronary bypass graft Category: Surgical Plan: Status post CABG x2; fung to LAD and SVG to OM2- 06/2020. (4) Persistent atrial fibrillation: Code(s): I48.19 - Other persistent atrial fibrillation Category: Medical Plan: Remains on anticoagulation. She is also status post left atrial appendage ligation with atrial clip during CABG. (5) Non-rheumatic mitral regurgitation: Code(s): I34.0 - Nonrheumatic mitral (valve) insufficiency Category: Medical Plan: Last echocardiogram with severe mitral calcification with severe mitral regurgitation. She is really not a surgical candidate. She does not have any symptoms either. (6) Essential hypertension: Code(s): I10 - Essential (primary) hypertension Category: Medical Plan: Lowish blood pressures. In the past, she used actually run high blood pressures. No specific changes made today. (7) Peripheral vascular disease: Code(s): I73.9 - Peripheral vascular disease, unspecified Category: Medical Plan: History of ischemic right leg treated at [facility]. Used to see vascular surgery in [place] in the past, where she has undergone other procedures. Then Dr. Abbasi. Follow-up as needed. Plan Discussed with family. Coding Level of Care Code Est Pt Level 4 (31427) Diagnoses Chronic heart failure with preserved ejection fraction I50.32 Atherosclerotic cardiovascular disease I25.10 Status post aorto-coronary artery bypass graft Z95.1 Persistent atrial fibrillation I48.19 Non-rheumatic mitral regurgitation I34.0 Essential hypertension I10 Peripheral vascular disease I73.9 CPT Codes EKG - CPT: 30571-[id number], Complete ([id number])
== END 2024-05-10 14:04 | disposition home or self-care (01) ==
PROVIDERS: PCP Internal Medicine; Visit Provider Internal Medicine
DX: I50.32 Chronic diastolic (congestive) heart failure (principal); I25.10 Atherosclerotic heart disease of native coronary artery without angina pectoris; Z95.1 Presence of aortocoronary bypass graft; I48.19 Other persistent atrial fibrillation; I34.0 Nonrheumatic mitral (valve) insufficiency; I10 Essential (primary) hypertension; I73.9 Peripheral vascular disease, unspecified
CPT/HCPCS: 93010; 99214

== ENCOUNTER → 2024-05-10 13:23 | Outpatient (BNVA) | payer MEDICARE, SELFPAY ==
[2022-10-20 12:25] VITALS: BP 116/64; BMI 28.6
== END ==
PROVIDERS: PCP Internal Medicine; Visit Provider Internal Medicine
DX: I25.10 Atherosclerotic heart disease of native coronary artery without angina pectoris (principal); I11.0 Hypertensive heart disease with heart failure; I50.32 Chronic diastolic (congestive) heart failure; I48.19 Other persistent atrial fibrillation; I34.0 Nonrheumatic mitral (valve) insufficiency; I73.9 Peripheral vascular disease, unspecified; Z95.1 Presence of aortocoronary bypass graft; Z98.890 Other specified postprocedural states; Z79.01 Long term (current) use of anticoagulants
CPT/HCPCS: 93005; 99212

== ENCOUNTER 2024-09-30 13:48 | Outpatient (AMB) | payer MEDICARE, SELFPAY ==
[2022-10-20 12:25] VITALS: BP 116/64; BMI 28.6
--- NOTE | 2024-09-30 13:51 | A.OFFPC_ITS ---
Vital Signs 09/30/24 13:53 Height 5 ft Weight 159 lb 13.362 oz BMI 31.2 BP 130/70 Blood Pressure Location Rt brachial Position Sitting Pulse 78 Pulse Source Pulse Oximeter Pulse Oximetry (%) 95 Oxygen Delivery Method Room Air Intake Visit Reasons: PE Intake Note: Patient is here today for a physical. Database Management System Specialist Required: No Chief Deputy Coroner: Present Accompanied by: Daughter Allergies latex Allergy (Mild, Verified 09/30/24 13:53) rash simvastatin [Simvastatin] Allergy (Mild, Verified 09/30/24 13:53) NAUSEA Medication List - Last Reconciled 09/30/24 by Edwin Allen MD apixaban (Eliquis) 5 mg PO BID atorvastatin 40 mg PO BEDTIME calcium carbonate 500 mg PO BID furosemide 40 mg See Protocol PO BID@0900,1800 90 days lisinopril 5 mg PO DAILY magnesium oxide 400 mg PO DAILY metoprolol tartrate 25 mg PO BID 90 days multivitamin 1 tab PO DAILY omeprazole 20 mg PO BID 90 days sennosides (senna) 8.6 mg PO BEDTIME Tobacco use date assessed: 09/30/24 Fall risk assessment: No Falls in past year Last assessed Fall Risk: 09/30/24 Dental Screening Dental Screen Date: 09/30/24 Did you have a dental visit in the last 12 months?: No Did you have a dental problem in the last 6 months where you did not have access to dental care?: No Was dental information given to patient?: No (Dentures) HPI PE HPI Details 84-year-old obese female with coronary a rtery disease hypertension congestive heart failure Barretts esophagus atrial fibrillation renal insufficiency coming in for physical exam . Patient was last seen in 06/18/2023. Review of the notes has seen Cardiology in April 2024 has a history of mitral regurgitation severe not a surgical candidate status post CABG 2019. Preserved ejection fraction heart failure. Patient on diuretics and stable. Patient has peripheral vascular disease. Patient also follows up with vascular surgeon for peripheral arterial disease but patient has no problems presently. [facility] Medical History (Updated 09/30/24 @ 14:32 by Edwin Allen MD) PAD (peripheral artery disease) Mitral valve regurgitation Persistent atrial fibrillation CHF (congestive heart failure) Peripheral vascular disease Essential hypertension Chronic heart failure with preserved ejection fraction Atherosclerotic cardiovascular disease Cognitive impairment Coronary artery disease of bypass graft of [place] heart with stable angina pectoris Subclavian artery stenosis, left Colitis Bilateral femoral artery stenosis Hypercholesterolemia Roger's esophagus Surgical History Status post aorto-coronary artery bypass graft History of coronary artery bypass graft (~06/2020) Family History Father No problems noted. Mother No problems noted. Social History (Updated 09/30/24 @ 14:12 by Edwin Allen MD) Household Members: Family Housing: House Do you presently have visiting nurse or other home services: Yes (pt visits) Alcohol intake: never Comment: 1-2 A year Patient Tobacco Use Status: Former Tobacco user Tobacco use type: Cigarette Years Smoked: quit in 1979 e-Cigarette/Vaping Use: Never Used Second Hand Smoke Exposure: No service: No Current occupational status: retired Cognitive needs: Yes (cane, transport wheelchair, Walker) Hearing needs: No Vision needs: Yes (glasses) Questionnaire PHQ-9 Over the last 2 weeks, how often have you been bothered by any of the following problems? 1. Little interest or pleasure in doing things: more than half the days 2. Feeling down, depressed, or hopeless: nearly every day 3. Trouble falling or staying asleep, or sleeping too much: nearly every day 4. Feeling tired or having little energy: nearly every day 5. Poor appetite or overeating: more than half the days 6. Feeling bad about yourself - or that you are a failure or have let yourself or your family down: several days 7. Trouble concentrating on things, such as reading the newspaper or watching television: several days 8. Moving or speaking so slowly that other people could have noticed. Or the opposite - being so fidgety or restless that you have been moving around a lot more than usual: not at all 9. Thoughts that you would be better off or of hurting yourself in some way: not at all Total score: 15 Depression Screening Interpretation: Positive Depression Screening Done: Yes Source: Developed by Drs. Deyvi Benson, Linda Jacobo, Silver Narvaez and colleagues, with an educational kelley from [employer]. Thrive Questionnaire Date Thrive assessed: 09/30/24 I am a: Parent/Caregiver What is your living situation today?: I have a steady place to live Within the past 12 months, did the food you bought not last and you didn't have the money to get more?: Never true Within the past 12 months, did you worry whether your food would run out before you got money to buy more?: Never true Do you have trouble paying for medicines?: No Do you have trouble getting transportation to medical appointments?: No Do you have trouble paying your heating and electricity bill?: No Do you have trouble taking care of your child, family member or friend?: Yes Do you have trouble with day-to-day activities such as bathing, preparing meals, shopping, managing finances, etc.?: Yes Are you currently unemployed and looking for a job?: Yes Are you interested in more education?: No Please select the resources that you would like help with: Care for elder or disabled and Daily support Currently or been in a relationship where the following occur: Controlled Financially and Controlled Emotionally THRIVE Score: 2 AUDIT C Alcohol Use Questionnaire (AUDIT-C) 1. How often do you have a drink containing alcohol?: Monthly or less 2. How many drinks containing alcohol do you have on a typical day when you are drinking?: 1 or 2 3. How often do you have six or more drinks on one occasion?: Never Total Score: 1 LEO-7 AMB Questionnaire LEO-7 Date LEO - 7 assessed: 09/30/24 Feeling nervous, anxious, or on edge: 0 = Not at all Not being able to stop or control worryin = Not at all Worrying too much about different things: 0 = Not at all Trouble relaxin = Not at all Being so restless that it is hard to sit still: 0 = Not at all Becoming easily annoyed or irritable: 1 = Several days Feeling afraid as if something awful might happen: 0 = Not at all Total LEO-7 score (0-4 normal; 5-9 mild; 10-14 moderate; 15-21 severe): 1 Source: Developed by Drs. Deyvi Benson, Linda Jacobo, Silver Narvaez and colleagues, with an educational kelley from [employer]. Review of Systems Const Denies poor appetite and Denies weakness Eyes Denies no additional complaints ENT Reports Normal hearing present, Denies dizziness, Denies nasal congestion, Denies tinnitus and Denies sore throat Card Denies chest pain, Denies syncope, Denies rapid heart rate and Denies dyspnea Resp Denies cough and Denies dyspnea GI Denies change in stool character, Reports constipation, Denies diarrhea, Denies nausea and Denies vomiting Denies urinary frequency, Denies difficulty voiding and Denies dysuria Neuro Reports Normal hearing present, Denies confusion, Denies dizziness, Denies syncope and Denies weakness Psych Denies confusion Physical exam (Primary Care) Vital Signs: Last Vital Signs Pulse 78 09/30/24 13:53 BP 130/70 09/30/24 13:53 Pulse Ox 95 09/30/24 13:53 Oxygen Delivery Method Room Air 09/30/24 13:53 BMI result Body Mass Index 31.2 Tobacco/Smoking Status: Tobacco use Status Tobacco use date assessed 09/30/24 09/30/24 14:01 Patient Tobacco Use Status Former Tobacco user 09/30/24 14:12 Tobacco use type Cigarette 09/30/24 14:12 e-Cigarette/Vaping Use Never Used 09/30/24 14:12 PHQ-9: PHQ-9 Score PHQ-9: Total score 15 09/30/24 14:01 Depression Screening Interpretation: Positive Thrive Assessment: Date of Thrive Assessment Date Thrive assessed 09/30/24 09/30/24 14:01 Currently or been in a relationship where the following occur: Controlled Financially and Controlled Emotionally Const General: No confusion Orientation/consciousness: No confusion HENMT Other: Impacted cerumen bilateral Head: Yes normocephalic Ears: external ears normal Face and sinus: Yes normal facial exam Mouth: moist mucous membranes Throat: Yes tonsils normal Eyes Other: Pedal pulses weak bilateral, noted a lot of dirt interdigital areas. Conjunctivae: conjunctivae normal Pupils: Equal, round and reactive pupils present and Pupil accommodation reflex normal Direct Ophthalmoscopy: normal light reflex Neck Neck: No lymphadenopathy Thyroid: Thyroid normal Chest Chest palpation & inspection: normal inspection of the chest Resp Effort & Inspection: normal respiratory effort and no audible wheezes Auscultation: clear to auscultation bilaterally, no crackles, no wheezes and lung sounds not diminished Cardio Rate: regular rate Rhythm: regular rhythm Peripheral pulses: radial pulses present and dorsalis pedis present GI Other: Declined rectal exam Palpation (GI): no masses Auscultation: normal bowel sounds and normoactive bowel sounds Rectal Exam - Female: deferred Skin General skin exam: no rashes or lesions noted Rashes: no rashes Neuro General: No confusion Cranial nerves: Yes Equal, round and reactive pupils present and Yes Normal hearing present Cognition (Neuro): normal cognition Gait exam (Neuro): Normal gait present Motor exam (neuro): 5/5 motor strength present throughout Deep tendon reflexes (DTR's): Right brachioradialis reflex intensity grade: 2+, Left brachioradialis reflex intensity grade: 2+, Right patellar reflex intensity grade: 2+ and Left patellar reflex intensity grade: 2+ Extrem General: No edema Office Procedures Flu Questionnaire Does the patient have a severe egg allergy?: No Does the patient have severe life threatening allergies?: No Does the patient have a fever or illness today?: No Has the patient ever had Guillain-Whitehall Syndrome?: No Has the patient ever had any past reaction to a flu shot?: No Immunizations Fluarix Triv 5614-6828 (PF) 45 mcg (15 mcg x 3)/0.5 mL IM syringe Performing Provider: Edwin Allen MD [facility] Administered by: Deisy Young LPN on 09/30/24 14:13 Dose Route Admin Location Dispensed Lot Number Expiration Date NDC Assisted Living Assistant 0.5 mL IM Right Deltoid 0.5 mL [id number] 05/29/25 [id number] [employer] VIS Given Date VIS Provided VIS Publication Date 09/30/24 Single Vaccine 21 Eligibility Eligibility Date Funding Source Not [facility] Eligible 09/30/24 Private Coding Level of Care Code New Pt Prev Care >65yr (89532) Diagnoses Annual physical exam Z00.00 Roger's esophagus without dysplasia K22.70 Roger's esophagus type: without dysplasia Atherosclerotic cardiovascular disease I25.10 Hypercholesterolemia E78.00 Essential hypertension I10 Persistent atrial fibrillation I48.19 PAD (peripheral artery disease) I73.9 Black nails L60.8 Vision changes H53.9 Impacted cerumen, bilateral H61.23 Assessment & Plan Assessment & Plan (1) Annual physical exam: Code(s): Z00.00 - Encounter for general adult medical examination without abnormal findings Category: Medical Plan: Patient is advised to eat healthy, keep well hydrated, keep active and have adequate sleep. (2) Roger's esophagus: Comment: low grade dysplasia August 2012, July 2015, September 2017 Code(s): K22.70 - Roger's esophagus without dysplasia Category: Medical Qualifiers: Roger's esophagus type: without dysplasia Qualified Code(s): K22.70 - Roger's esophagus without dysplasia Plan: Avoid the foods that causes that usually spicy foods, tomato products, juices, coffee, soda and foods that your sensitive to. After eating do not lie down, allow 3-4 hours before in lie down. And keep the head of bed above 30 degrees to avoid the acid from going up. On omeprazole 20 mg twice a day (3) Atherosclerotic cardiovascular disease: Code(s): I25.10 - Atherosclerotic heart disease of [place] coronary artery without angina pectoris Category: Medical Plan: Control the cholesterol, weight, blood pressure, diabetes patient on anticoagulation with apixaban twice a day year blood work requested (4) Hypercholesterolemia: Code(s): E78.00 - Pure hypercholesterolemia, unspecified Category: Medical Plan: Avoid fried foods, chicken skin, eggs, butter margarine, pastries and meat. Be it pork or beef they have a lot of cholesterol LDL goal of less than 70 and triglyceride of less than 150 on atorvastatin 40 mg once a day (5) Essential hypertension: Code(s): I10 - Essential (primary) hypertension Category: Medical Plan: Continue with blood pressure medication. Decrease salt intake and exercise on metoprolol tartrate 25 mg twice a day lisinopril 5 mg once a day (6) Persistent atrial fibrillation: Code(s): I48.19 - Other persistent atrial fibrillation Category: Medical Plan: Continue with anticoagulation and twice a day year blood work for renal function (7) PAD (peripheral artery disease): Comment: 02/2018 - right femoral endarterectomy with thrombectomy.(Dr. Bonnie Ervin Code(s): I73.9 - Peripheral vascular disease, unspecified Category: Medical Plan: When sitting down elevate the legs, exercise, and support stockings continue with anticoagulation. (8) Black nails: Code(s): L60.8 - Other nail disorders Category: Medical Plan: Podiatry referral done (9) Vision changes: Code(s): H53.9 - Unspecified visual disturbance Category: Medical Plan: Referral to Ophthalmology also (10) Impacted cerumen, bilateral: Code(s): H61.23 - Impacted cerumen, bilateral Category: Medical Plan: Will schedule for ear irrigation if patient wishes. Orders: Orders Comprehensive Met. Panel Today I50.32 - Chronic diastolic (congestive) heart failure Free T4 (Free Thyroxine) Today I50.32 - Chronic diastolic (congestive) heart failure Lipid Panel Today E78.00 - Pure hypercholesterolemia, unspecified, I50.32 - Chronic diastolic (congestive) heart failure Thyroid Stimulating Hormone Today I50.32 - Chronic diastolic (congestive) heart failure Vitamin B12 and Folate Today I50.32 - Chronic diastolic (congestive) heart failure Influenza [id number] Immunization Today Z23 - Encounter for immunization B Type Natriuretic Peptide Today I50.32 - Chronic diastolic (congestive) heart failure Complete Blood Count Auto Diff Today I50.32 - Chronic diastolic (congestive) heart failure Vitamin D 25-OH Total Today I50.32 - Chronic diastolic (congestive) heart failure Magnesium Today I50.32 - Chronic diastolic (congestive) heart failure UA CC w/rflx Micro + Cult Today I50.32 - Chronic diastolic (congestive) heart failure, R30.0 - Dysuria Referrals Ophthalmology Referral H53.9 - Unspecified visual disturbance Podiatry Referral L60.8 - Other nail disorders
[2024-09-30 13:53] VITALS: BP 130/70; PULSE 78; O2SAT 95; BMI 31.2
== END 2024-09-30 14:32 | disposition home or self-care (01) ==
LOC: HO.HMCH 13:49
PROVIDERS: PCP Internal Medicine; Visit Provider Internal Medicine
DX: Z00.00 Encounter for general adult medical examination without abnormal findings (principal); K22.70 Barrett's esophagus without dysplasia; I48.19 Other persistent atrial fibrillation; I73.9 Peripheral vascular disease, unspecified; E78.00 Pure hypercholesterolemia, unspecified; I25.10 Atherosclerotic heart disease of native coronary artery without angina pectoris; I10 Essential (primary) hypertension; L60.8 Other nail disorders; H53.9 Unspecified visual disturbance; H61.23 Impacted cerumen, bilateral

== ENCOUNTER → 2024-09-30 13:48 | Outpatient (BNVA) | payer MEDICARE, SELFPAY ==
[2022-10-20 12:25] VITALS: BP 116/64; BMI 28.6
== END ==
PROVIDERS: PCP Internal Medicine; Visit Provider Internal Medicine
DX: Z00.01 Encounter for general adult medical examination with abnormal findings (principal); Z23 Encounter for immunization; K22.70 Barrett's esophagus without dysplasia; I25.10 Atherosclerotic heart disease of native coronary artery without angina pectoris; I10 Essential (primary) hypertension; E78.00 Pure hypercholesterolemia, unspecified; I48.19 Other persistent atrial fibrillation; I73.9 Peripheral vascular disease, unspecified; L60.8 Other nail disorders; H53.9 Unspecified visual disturbance; H61.23 Impacted cerumen, bilateral
CPT/HCPCS: 90471; 90656; 96127; 99397

== ENCOUNTER 2024-10-11 12:35 | Outpatient (REF) | payer MEDICARE, SELFPAY ==
[2022-10-20 12:25] VITALS: BP 116/64; BMI 28.6
--- NOTE | ~2024-10-11 | US_ITS ---
EXAMINATION: US NONINVASIVE ASSESSMENT OF THE bilateral LOWER EXTREMITY WITH ARTERIAL DUPLEX AND ANKLE BRACHIAL INDICES (ABIS) CLINICAL INFORMATION: COMPARISON: None available. TECHNIQUE: Duplex Doppler techniques with waveform analysis and measurement of velocities in the common femoral, profunda femoris, superficial femoral, popliteal and tibial arteries were performed. In addition, ankle pulse volume recordings, ankle pressure measurements and ankle brachial indices were obtained of the lower extremity arterial system. The study was performed only at rest. FINDINGS: NONINVASIVE ASSESSMENT OF THE ARTERIES OF BILATERAL LOWER EXTREMITIES WITH ABIs: RIGHT LEG: Ankle-brachial index: 1.34 Ankle PVR: Low amplitude abnormal waveform LEFT LEG: Ankle-brachial index: 1.03 Left ankle PVR: Low amplitude abnormal waveform YURI Reference: 0.9 - 1.4 = normal - no significant arterial disease 0.7 - 0.89 = mild peripheral arterial disease 0.51 - 0.69 = moderate peripheral arterial disease 0.50 = severe peripheral arterial disease RIGHT LOWER EXTREMITY DUPLEX ULTRASOUND: Common femoral artery: 268 cm/s. Diastolic flow reversal: Present Profunda femoris artery: 68.55 cm/s. Diastolic flow reversal: Present Superficial femoral artery (proximal): 86.91 cm/s. Diastolic flow reversal: Present Superficial femoral artery (mid): 67.7 cm/s. Diastolic flow reversal: Present Superficial femoral artery (distal): 55.08 cm/s. Diastolic flow reversal: Present Popliteal artery: 66 cm/s Diastolic flow reversal: Present Posterior tibial artery: 52.9 cm/s Diastolic flow reversal: Present Peroneal artery: 49.26 cm/s Diastolic flow reversal: Present Anterior tibial artery: 53.3 Diastolic flow reversal: Present Dorsalis pedis: 10.3 cm/s Diastolic flow reversal: Absent LEFT LOWER EXTREMITY DUPLEX ULTRASOUND: Common femoral artery: 174 cm/s. There is bulky calcific plaque. Diastolic flow reversal: Present Profunda femoris artery: 51.3 cm/s. Diastolic flow reversal: Present Superficial femoral artery (proximal): 118.9-173.3 cm/s. Diastolic flow reversal: Present Superficial femoral artery (mid): 58.2 cm/s. Diastolic flow reversal: Present Superficial femoral artery (distal): 58.9 cm/s. Diastolic flow reversal: Present Popliteal artery: 82.5 cm/s Diastolic flow reversal: Present Posterior tibial artery: 35.8 cm/s Diastolic flow reversal: Present Peroneal artery: 28.3 cm/s Diastolic flow reversal: Present Anterior tibial artery: 54.7 cm/s Diastolic flow reversal: Present Dorsalis pedis: 3.7 cm/s Diastolic flow reversal: Absent US/US arterial duplex BI w/ YURI IMPRESSION: On the right the ankle-brachial index is 1.34, likely elevated secondary to calcified vessels as the systolic pressure at the level of the posterior tibial artery is 200. There is a low amplitude, abnormal PVR waveform and relatively elevated velocities at the level of the common femoral artery below relative to the right lower extremity vasculature which may suggest some degree of inflow disease. There is loss of diastolic flow reversal at the level of the dorsalis pedis, otherwise there is normal multiphasic flow in the right lower extremity. On the left ankle brachial indexes 1.03. There is a low infiltrate, abnormal PVR waveform. There is loss of diastolic flow reversal at the dorsalis pedis, otherwise there is multiphasic flow throughout the lower extremity. Electronically signed by: Juan Lopez MD 10/12/2024 01:46 PM [facility]
== END 2024-10-11 12:36 | disposition home or self-care (01) ==
LOC: HO.US 12:35
PROVIDERS: PCP Internal Medicine; Visit Provider Surgery Vascular Surgery
DX: I73.9 Peripheral vascular disease, unspecified (principal)
CPT/HCPCS: 93922; 93925

== ENCOUNTER 2024-10-18 12:56 | Outpatient (AMB) | payer MEDICARE, SELFPAY ==
[2022-10-20 12:25] VITALS: BP 116/64; BMI 28.6
--- NOTE | 2024-10-18 13:15 | A.OFFVIS_ITS ---
Intake Visit Reasons: Follow Up Arterial 10/11 US Intake Note: Patient presents for follow up arterial US. No complaints. Accompanied by: Daughter Allergies latex Allergy (Mild, Verified 10/18/24 13:16) rash simvastatin [Simvastatin] Allergy (Mild, Verified 10/18/24 13:16) NAUSEA HPI HPI Follow Up Arterial 10/11 US: Details: Very pleasant 84-year-old female presents for evaluation regarding peripheral vascular disease. At the current time she is mostly wheelchair-bound. She does report she walks around but her daughter who is present for follow-up says she walks about 10-20 feet around the house. She now presents for follow-up evaluation. 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 Mother No problems noted. Social History Household Members: Family Housing: House Do you presently have visiting nurse or other home services: Yes (pt visits) Alcohol intake: never Comment: 1-2 A year Patient Tobacco Use Status: Former Tobacco user Tobacco use type: Cigarette Years Smoked: quit in 1979 e-Cigarette/Vaping Use: Never Used Second Hand Smoke Exposure: No service: No Current occupational status: retired Cognitive needs: Yes (cane, transport wheelchair, Walker) Hearing needs: No Vision needs: Yes (glasses) Review of Systems Const All systems reviewed & are unremarkable except as noted in HPI and below Reports no additional complaints ENT Reports Normal hearing present Card Denies chest pain, Denies chest pain at rest, Denies chest pain with activity and Denies pedal edema Resp Denies cough GI Denies abdominal pain Musc Denies abnormal gait, Denies muscle cramps and Denies radiating pain into limb Skin/Breast Denies skin ulcer and Denies wounds Neuro Reports Normal hearing present and Denies abnormal gait Psych Reports no additional complaints Physical Exam Const General: cooperative, healthy appearing and comfortable Orientation/consciousness: oriented to person, oriented to place and oriented to time HEENT Head: Yes normal to inspection Neck Neck: Yes normal visual inspection Carotids: no bruits Chest Chest palpation & inspection: normal inspection of the chest Resp Effort & Inspection: normal respiratory effort and able to speak in complete sentences Auscultation: clear to auscultation bilaterally, no crackles, no rales, no rhonchi and no wheezes Cardio Other: Bilateral DP signals Rate: regular rate Rhythm: regular rhythm Heart sounds: S1 normal heart sound present and S2 normal heart sound present Bruits: no carotid bruits GI Inspection: Yes normal to inspection Skin Wounds: no wounds Hair: normal Neuro General: oriented to person, oriented to place and oriented to time Cranial nerves: Yes CN's II-XII intact bilaterally and Yes Normal hearing present Cognition (Neuro): normal cognition Motor exam (neuro): 5/5 motor strength present throughout Extrem Other: venous exam: No significant superficial varicosities or spider telangiectasias, minimal edema General: No clubbing, No cyanosis and No edema Psych Appearance: grossly normal Mental Status: mental status grossly normal Speech and movement: Normal speech and movement present Results Reviewed Results Reviewed: Noninvasive arterial testing dated 10/11/2024 demonstrates YURI on the right of 1.3 and on the left of 1.03. Written report and images were reviewed. Assessment & Plan Assessment & Plan (1) PAD (peripheral artery disease): Comment: 02/2018 - right femoral endarterectomy with thrombectomy.(Dr. Abbasi) [facility] Code(s): I73.9 - Peripheral vascular disease, unspecified Category: Medical Plan: In short patient has stable claudication. I did review the pathophysiology of peripheral vascular disease with the patient. In addition we did discuss routine conservative measures including a healthy diet and the importance of exercise and ambulation. We did discuss risk factor modification. In addition I did have an extensive discussion with her about the use of walker. It appears at the current time she is using 2 canes for balance and I did state that the walker would be more stable and increased safety while ambulating. The patient will continue to to follow-up with surveillance follow-up in approximately 1 year. Thank you for allowing us to participate in this patient's care. If there are any questions or concerns please do not hesitate to contact us. Orders: Orders US arterial duplex LE BI 1 Year I73.9 - Peripheral vascular disease, unspecified Coding Level of Care Code Est Pt Level 4 (28218) Complex EM visit Add On G2211 Diagnoses PAD (peripheral artery disease) I73.9
== END 2024-10-18 13:45 | disposition home or self-care (01) ==
PROVIDERS: PCP Internal Medicine; Visit Provider Surgery Vascular Surgery
DX: I73.9 Peripheral vascular disease, unspecified (principal)
CPT/HCPCS: 99214; G2211

== ENCOUNTER → 2024-10-18 12:56 | Outpatient (BNVA) | payer MEDICARE, SELFPAY ==
[2022-10-20 12:25] VITALS: BP 116/64; BMI 28.6
== END ==
PROVIDERS: PCP Internal Medicine; Visit Provider Surgery Vascular Surgery
DX: I73.9 Peripheral vascular disease, unspecified (principal)
CPT/HCPCS: 99212

== ENCOUNTER 2025-02-28 15:03 | Inpatient (IN) | payer MEDICARE, SELFPAY ==
[2022-10-20 12:25] VITALS: BP 116/64; BMI 28.6
--- NOTE | ~2025-02-28 | XR_ITS ---
EXAMINATION: XR CHEST CLINICAL INFORMATION: SOB COMPARISON: Shortness of breath. TECHNIQUE: 2 views of the chest were obtained. FINDINGS: There is a large volume hiatal hernia with the gas field and air-fluid level stomach. Mild prominence of the interstitial markings. Pulmonary reticular pattern. No gross consolidation, pleural effusion or pneumothorax. Sternal wires. Cardiomediastinal silhouette is mildly prominent, unchanged. Osteopenia versus osteoporosis. Multilevel thoracolumbar spondylosis. Calcified plaques in the thoracic and abdominal aorta wall. Calcified lesions beneath the left coracoid.. XR/XR chest 2V IMPRESSION: Large volume hiatal hernia. Mild interstitial lung edema in the correct clinical settings. 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 Electronically signed by: Eduar Lu MD 02/28/2025 03:31 PM EDT
--- NOTE | 2025-02-28 15:05 | ECG_ITS ---
Test Reason : SOB Blood Pressure : */* mmHG Vent. Rate : 81 BPM Atrial Rate : * BPM P-R Int : * ms QRS Dur : 116 ms QT Int : 406 ms P-R-T Axes : * -35 101 degrees QTcB Int : 471 ms Atrial fibrillation Left axis deviation Minimal voltage criteria for LVH, may be normal variant ( Omi product ) Inferior infarct , age undetermined Anteroseptal infarct (cited on or before 17-Nov-2022) ST & T wave abnormality, consider lateral ischemia Abnormal ECG When compared with ECG of 17-Nov-2022 16:20, No significant changes seen Referred By: Albania Allan Electronically Signed By: SANAM ISAAC
[2025-02-28 15:09] VITALS: BP 125/40; PULSE 83; RESP 18; TEMP 36.7; O2SAT 98; BMI 27.8
--- NOTE | 2025-02-28 15:10 | ED_ITS ---
HPI - SOB/Dyspnea General Chief Complaint: Dyspnea Stated Complaint: Heavy breathing, cough Time Seen by Provider: 02/28/25 21:02 Source: patient Mode of arrival: wheelchair Limitations: no limitations History of Present Illness ED Provider: Sara Lorenzo NP HPI Narrative: patient is an 84-year-old female with past medical history of diastolic CHF, atrial fibrillation anticoagulated on Eliquis, CAD s/p CABG, hypertension, hiatal hernia with Roger's esophagus who presents emergency department with daughter for evaluation. Reports over the past 3 days has been experiencing a dry nonproductive cough, increased shortness of breath, generalized weakness. Daughter states that she subjectively has noticed a weight gain but has not physically checked her weight. She has been advised in the past that these are reasons that she should seek evaluation given her history of CHF. She states she has been compliant with her furosemide 40 mg twice daily. Denies trauma, fevers, chills, URI symptoms, sore throat, difficulty swallowing, neck pain, chest pain, palpitations, nausea, vomiting, abdominal pain, numbness or tingling of the extremities, recent lower extremity pain or swelling. Related Data Home Medications ?Medication ?Instructions ?Recorded ?Confirmed multivitamin 1 tab PO DAILY 09/04/20 09/30/24 calcium carbonate 500 mg PO BID 12/03/21 09/30/24 magnesium oxide 400 mg PO DAILY 12/03/21 09/30/24 sennosides 8.6 mg capsule (senna) 8.6 mg PO BEDTIME 09/30/24 09/30/24 Previous Rx's ?Medication ?Instructions ?Recorded omeprazole 20 mg capsule,delayed 20 mg PO BID 90 days #180 caps 01/12/24 release metoprolol tartrate 25 mg tablet 25 mg PO BID 90 days #180 tabs 10/11/24 apixaban 5 mg tablet (Eliquis) 5 mg PO BID #180 tabs 11/17/24 atorvastatin 40 mg tablet 40 mg PO BEDTIME #90 tabs 02/01/25 furosemide 40 mg tablet 40 mg PO BID@0900,1800 90 days 02/01/25 #180 tabs lisinopril 5 mg tablet 5 mg PO DAILY #90 tabs 02/15/25 Allergies Allergy/AdvReac Type Severity Reaction Status Date / Time latex Allergy Mild rash Verified 02/28/25 15:11 simvastatin [Simvastatin] Allergy Mild NAUSEA Verified 02/28/25 15:11 Review of Systems 2 Review of Systems: Yes all other systems are reviewed and are negative [facility] Past Medical History Attestation statement: The following information was validated with the patient. Source: old records reviewed Medical History PAD (peripheral artery disease) Mitral valve regurgitation Persistent atrial fibrillation CHF (congestive heart failure) Peripheral vascular disease Essential hypertension Chronic heart failure with preserved ejection fraction Atherosclerotic cardiovascular disease Cognitive impairment Coronary artery disease of bypass graft of [place] heart with stable angina pectoris Subclavian artery stenosis, left Colitis Bilateral femoral artery stenosis Hypercholesterolemia Roger's esophagus Surgical History Status post aorto-coronary artery bypass graft History of coronary artery bypass graft (~06/2020) Family History Family History Father No problems noted. Mother No problems noted. Social History Social History Household Members: Family Housing: House Do you presently have visiting nurse or other home services: Yes (pt visits) Alcohol intake: never Comment: 1-2 A year Patient Tobacco Use Status: Former Tobacco user Tobacco use type: Cigarette Years Smoked: quit in 1979 e-Cigarette/Vaping Use: Never Used Second Hand Smoke Exposure: No Advance Directives: No Advance Directives Information Provided: Yes Patient : No service: No Current occupational status: retired Cognitive needs: Yes (cane, transport wheelchair, Walker) Hearing needs: No Vision needs: Yes (glasses) Physical Exam 2 Vital Signs: Vital Signs: Last Vital Signs Temp 98.4 F 03/01/25 01:53 Pulse 95 03/01/25 01:53 Resp 17 03/01/25 01:53 BP 120/85 03/01/25 01:53 Pulse Ox 94 03/01/25 01:53 O2 Del Method Room Air 03/01/25 01:53 BMI result Body Mass Index 27.8 Appearance: Alert.?Oriented to person, place and time. No acute distress.?Normal affect. Eyes: Pupils equal, round and reactive to light.? ENT: Pharynx normal.?? Neck: Normal inspection.? Neck supple.?? CVS: Heart sounds normal. Normal heart rate and rhythm.? Pulses normal.?? Respiratory: No respiratory distress.? Lung sounds with Mild rales bilaterally, diminished in the right lower lobe Abdomen: Soft and non-tender. Normoactive bowel sounds. Skin: Skin warm and dry.? Normal skin color.? Extremities: No lower extremity edema.? No calf ttp? Neuro: Moves all extremities spontaneously. Sensation intact bilaterally. No focal neuro deficits. Course Course Course Narrative: This is an RME: Additional HPI, ROS, PE not included below will be deferred to primary provider. RME assessment and note performed by: Albania White PA-C This is a [id number]-female, with a hx of chronic diastolic chf, chronic afib on eliquis, cad s/p cabg, HTN, severe hiatal hernia with barretts esophogus, who presents to the ER with complaints of increased work of breathing and lower extremity swelling. Also endorsing generalized weakness. Plan: Labs, EKG, CXR, viral swabs Medications Administered Generic Name Dose Route Start Last Admin Trade Name Freq PRN Reason Stop Dose Admin Benzonatate 100 mg 02/28/25 23:18 03/01/25 00:19 Benzonatate 100 Mg Capsule PO 100 mg TID PRN Administration Cough Guaifenesin 600 mg 02/28/25 23:45 03/01/25 00:20 Guaifenesin La 600 Mg Tab.Er.12h PO 600 mg BID KARLIE Administration Nystatin 1 appl 02/28/25 23:30 03/01/25 00:18 Nystatin Cream 15 Gm Tube TOPICAL Not Given BID KARLIE Protocol Senna 17.2 mg 02/28/25 23:30 03/01/25 00:19 Sennosides 8.6 Mg Tablet PO 17.2 mg BEDTIME KARLIE Administration Sodium Chloride 3 ml 03/01/25 00:00 03/01/25 00:20 0.9 % Sodium Chloride Flush 3 Ml Syringe IVFLUSH 3 ml QSHIFT KARLIE Administration Discontinued Medications Generic Name Dose Route Start Last Admin Trade Name Freq PRN Reason Stop Dose Admin Furosemide 40 mg 02/28/25 22:25 02/28/25 23:15 Furosemide 40 Mg/4 Ml Vial IVPUSH 02/28/25 22:26 40 mg ONCE ONE Administration Protocol Medical Decision Making Medical Decision Making [facility] Narrative: patient is an 84-year-old female with past medical history of diastolic CHF, atrial fibrillation anticoagulated on Eliquis, CAD s/p CABG, hypertension, hiatal hernia with Roger's esophagus who presents for evaluation of nonproductive cough, shortness of breath, weakness over the past 3 days as per HPI. Overall she appears well fatigued with exertion, she is afebrile without tachycardia no signs of systemic toxicity, no hypoxia, no tachypnea at rest. Intolerant to much ambulation due to weakness. On evaluation there is no rash or lesions urticaria or evidence of angioedema to suggest cough/shortness of breath secondary to allergic reaction/ anaphylaxis. No associated chest pain lower extremity redness pain or swelling, in his without history of VTE/malignancy. Reviewed workup obtained prior to my assumption of care, favoring CHF exacerbation with elevated BNP, no acute ischemic changes on EKG reveals an atrial fibrillation with ventricular rate of 81, QTC 464, no ST- elevation, delta troponin is flat. CXR with mild interstitial edema, no significant pleural effusion, no consolidate no infiltrate to suggest pneumonia. Viral serologies are negative. Appears to have an SHANNAN, however she has not had chemistries performed since 2022. electrolytes are normal. She is mildly anemic not meeting transfusion criteria, no leukocytosis. Viral Serologies are negative. Differential Diagnosis Differential Diagnoses: The differential diagnosis associated with the presentation includes ( See narrative above) Admission/Observation Consideration of admission/observation: Escalation of care including admission/observation considered Consult Healthcare Provider Management of the patient was discussed with: Hospitalist (Dr. Og - admit to medicine service for CHF exacerbation) Lab Data [facility] Lab Attestation statement: I reviewed the patient's lab results. 02/28/25 15:56 02/28/25 15:56 Labs: Lab Results 02/28/25 02/28/25 Range/Units 15:56 19:52 WBC 7.6 (4.8-10.8) X10*3/uL RBC 3.93 L (4.20-5.50) X10*6/uL Hgb 11.9 L (12.0-16.0) g/dl Hct 35.5 L (37.0-47.0) % MCV 90.3 (80.0-98.0) fL MCH 30.3 (27.0-33.0) pg MCHC 33.5 (31.0-35.0) g/dl RDW 14.0 (11.0-16.0) % Plt Count 221 (160-400) X10*3/uL MPV 9.7 (9.4-12.3) fL Immature Gran % (Auto) 0.4 (0.0-0.4) % Neut % (Auto) 75.0 H (45-73) % Lymph % (Auto) 10.9 L (20-40) % [place] % (Auto) 10.1 (2-11) % Eos % (Auto) 2.9 (0-4) % Baso % (Auto) 0.7 (0-2) % Lymph # (Auto) 0.8 L (1.2-4.9) X10*3/uL [place] # (Auto) 0.8 (0.1-1.2) X10*3/uL Eos # (Auto) 0.2 (0.0-0.4) X10*3/uL Baso # (Auto) 0.1 (0.0-0.2) X10*3/uL Abs Immat Gran (auto) 0.03 (0.00-0.03) X10*3/uL Absolute Neuts (auto) 5.7 (2.0-8.3) x10*3/uL Absolute Nucleated RBC 0.000 (0.0-0.012) X10*3/uL Nucleated RBC % (auto) 0.0 (0.0-0.2) /100WBC Sodium 139 (135-145) mmol/L Potassium 5.0 (3.3-5.1) mmol/L Chloride 103 (96-108) mmol/L Carbon Dioxide 28 (22-29) mmol/L Anion Gap 13 (12-20) BUN 25 H (9-16) mg/dL Creatinine 1.63 H (0.5-1.4) mg/dL Estim Creat Clear Calc 25.7 Estimated GFR 30 Random Glucose 96 (60-115) mg/dL Calcium 9.3 D (8.4-10.2) mg/dL Magnesium 2.2 (1.6-2.6) mg/dL Total Bilirubin 0.6 (0.0-1.0) mg/dL Direct Bilirubin 0.2 (0.0-0.5) mg/dL AST 28 (5-31) U/L ALT 11 (0-31) U/L Alkaline Phosphatase 112 (39-117) U/L Troponin I High Sens 15.5 D 17.7 H (<3.5-17.0) ng/L B-Natriuretic Peptide 650 H (<100) pg/mL Total Protein 7.6 (6.5-8.0) g/dL Albumin 3.6 (3.5-5.0) g/dL Influenza Type A (PCR) NEGATIVE (Negative) Influenza Type B (PCR) NEGATIVE (Negative) RSV RNA Qual (PCR) NEGATIVE (Negative) SARS-CoV-2 RNA (RT-PCR) NEGATIVE (Negative) Independent Interpretation I performed an independent interpretation of an: EKG ( see narrative above) and Plain X-Ray ( see narrative above) Radiology Impression Discussion of test interpretation with radiology: I have reviewed the radiologist's reading. Radiologist Impression: 2 views of the chest were obtained. FINDINGS: There is a large volume hiatal hernia with the gas field and air-fluid level stomach. Mild prominence of the interstitial markings. Pulmonary reticular pattern. No gross consolidation, pleural effusion or pneumothorax. Sternal wires. Cardiomediastinal silhouette is mildly prominent, unchanged. Osteopenia versus osteoporosis. Multilevel thoracolumbar spondylosis. Calcified plaques in the thoracic and abdominal aorta wall. Calcified lesions beneath the left coracoid.. XR/XR chest 2V IMPRESSION: Large volume hiatal hernia. Mild interstitial lung edema in the correct clinical settings. 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 Independent Historian Clinical information obtained from an independent historian. History obtained from or confirmed by: Other ( daughter) External Record Review External record reviewed: Outpatient record Chronic Conditions Patient?s care impacted by: Other ( see narrative above) Discharge Plan Discharge Clinical Impression: Acute exacerbation of chronic heart failure Patient Disposition: Admitted As Inpatient
[2025-02-28 16:05] LABS: MANUAL DIFF FLAG NO
[2025-02-28 16:09] LABS: Basophils Absolute Auto 0.1 X10*3/uL (0.0-0.2); Basophils Percent Auto 0.7 % (0-2); Eosinophils Absolute Auto 0.2 X10*3/uL (0.0-0.4); Eosinophils Percent Auto 2.9 % (0-4); Hematocrit 35.5 % (37.0-47.0); Hemoglobin 11.9 g/dl (12.0-16.0); Imm Gran Abs Auto 0.03 X10*3/uL (0.00-0.03); Imm Gran Pct Auto 0.4 % (0.0-0.4); Lymphocytes Absolute Auto 0.8 X10*3/uL (1.2-4.9); Lymphocytes Percent Auto 10.9 % (20-40); Mean Corpuscular HGB Conc 33.5 g/dl (31.0-35.0); Mean Corpuscular Hemoglobin 30.3 pg (27.0-33.0); Mean Corpuscular Volume 90.3 fL (80.0-98.0); Mean Platelet Volume 9.7 fL (9.4-12.3); Monocytes Absolute Auto 0.8 X10*3/uL (0.1-1.2); Monocytes Percent Auto 10.1 % (2-11); Neutrophils Absolute Auto 5.7 x10*3/uL (2.0-8.3); Platelet Count 221 X10*3/uL (160-400); Red Blood Count 3.93 X10*6/uL (4.20-5.50); White Blood Count 7.6 X10*3/uL (4.8-10.8)
[2025-02-28 16:31] LABS: Alanine Aminotransferase 11 U/L (0-31); Albumin Level 3.6 g/dL (3.5-5.0); Anion Gap 13 (12-20); Aspartate Amino Transferase 28 U/L (5-31); Bilirubin Direct 0.2 mg/dL (0.0-0.5); Bilirubin Total 0.6 mg/dL (0.0-1.0); Blood Urea Nitrogen 25 mg/dL (9-16); Calcium 9.3 mg/dL (8.4-10.2); Carbon Dioxide 28 mmol/L (22-29); Chloride 103 mmol/L (96-108); Creatinine Clr Calc Pharmacy 25.7; Estimated Glomerular Filt Rate 30; Glucose Random 96 mg/dL (60-115); Magnesium 2.2 mg/dL (1.6-2.6); Sodium 139 mmol/L (135-145); Total Protein 7.6 g/dL (6.5-8.0)
[2025-02-28 16:45] LABS: Alkaline Phosphatase 112 U/L (39-117)
[2025-02-28 17:01] LABS: Influenza A PCR NEGATIVE (Negative); Influenza B PCR NEGATIVE (Negative); Resp Syncy Virus RNA Qual PCR NEGATIVE (Negative); SARS COV2 PCR INHOUSE NEGATIVE (Negative)
[2025-02-28 17:08] LABS: B Type Natriuretic Peptide 650 pg/mL (<100)
[2025-02-28 17:09] LABS: Troponin-I High Sensitivity 15.5 ng/L (<3.5-17.0)
--- OUTSIDE RECORDS SUMMARY | 2025-02-28 18:31 | XMS_ITS | Clinical Summary ---
Author Organization [address] [place] [address] Address [address] [place] [address] Phone Care Team Providers Care Sort Manager Name Role Phone Edwin [place] MD Primary Care Provider [phone] Allergies No known active allergies Medications CALCIUM CITRATE ORAL Take by mouth. Active multivit-min/iron /folic acid/K (ADULTS MULTIVITAMIN ORAL) Multiple Vitamins-Mine rals (MULTIVITAMIN ADULT) Chew Tab Patient sig: Take by mouth. Active apixaban (ELIQUIS) 5 mg tablet Take by mouth. Active aspirin 81 mg chewable tablet Take 81 mg by mouth daily. Active atorvastatin (LIPITOR) 40 mg tablet Take 40 mg by mouth daily. Active furosemide (LASIX) 40 mg tablet Take 40 mg by mouth daily. Active lisinopriL (PRINIVIL,ZESTRIL ) 5 mg tablet Take 5 mg by mouth daily. Active omeprazole 20 mg tablet,disintegra t, delay rel Take by mouth. Active Active Problems Problem Noted Date Diagnosed Date PAD (peripheral artery disease) 05/15/2019 Encounters Date Type Department Care Team Description 01/02/2025 1:15 PM EST Office Visit Orthopedic Surgery [facility] [address] [place] [phone] Arcenio Jordan, DPM Acquired hallux valgus of right foot (Primary Dx); Acquired hallux valgus of left foot; Dermatophytosis of nail; Pain in toe of right foot; Pain in toe of left foot; Bilateral femoral artery stenosis (CMS/HCC) from Last 3 Months Social History Tobacco Use Types Packs/Day Years Used Date Smoking Tobacco: Former Smokeless Tobacco: Never Comments Unknown Sex and Gender Information Value Date Recorded Sex Assigned at Not on file Legal Sex Female 11:19 PM EST Gender Identity Not on file Sexual Orientation Not on file Obstetrics History Last Filed Vital Signs Vital Sign Reading Time Taken Comments Blood Pressure - - Pulse - - Temperature - - Respiratory Rate - - Oxygen Saturation - - Inhaled Oxygen Concentration - - Weight 81.6 kg (180 lb) 01/02/2025 1:42 PM EST Height 162.6 cm (5' 4 ) 01/02/2025 1:42 PM EST Body Mass Index 30.9 01/02/2025 1:42 PM EST Plan of Treatment Upcoming Encounters Date Type Department Care Team (Late st Contact Info) Description 07/03/2025 1:00 PM EDT Office Visit Orthopedic Surgery - [place] [address] [phone] Arcenio Jordan, DPM [address] [address] Health Maintenance Due Date Last Done Comments DTaP,Tdap,and Td Vaccines (1 - Tdap) 1960 Zoster Vaccines (1 of 2) 1991 RSV Immunization Patients 60+ Years Old (1 - 1-dose 75+ series) 2016 COVID-19 Vaccine ( - season) 2024 04/09/2021, 03/12/2021 Cholesterol Screening (Lipid Panel) 10/19/2024 Depression Screening 10/19/2024 Falls Risk Assessment 10/19/2024 Medicare Annual Wellness Visit 10/19/2024 Osteoporosis Screening (Bone Density Screening) 10/19/2024 Social Influencers of Health Screening 10/19/2024 Hypertension/CHF/CAD Annual BMP Blood Test 01/02/2025 Pneumococcal Vaccine: 50+ Years Completed 12/23/2019, 12/25/2015 Influenza Vaccine Completed 09/30/2024, , 12/23/2019, Additional history exists HIB Vaccines Aged Out No longer eligi ble based on patient's age to complete this topic HPV Vaccines Aged Out No longer eligi ble based on patient's age to complete this topic Hepatitis A Vaccines Aged Out No long er eligible based on patient's age to complete this topic Hepatitis B Vaccines Aged Out No long er eligible based on patient's age to complete this topic IPV Vaccines Aged Out No longer eligi ble based on patient's age to complete this topic MMR Vaccines Aged Out No longer eligi ble based on patient's age to complete this topic Meningococcal ACWY Vaccine Aged Out N o longer eligible based on patient's age to complete this topic Meningococcal B Vacine Aged Out No lo nger eligible based on patient's age to complete this topic RSV Immunization Patients Under 20 months Aged Out No longer eligible based on patient's age to complete this topic Varicella Vaccines Aged Out No longer eligible based on patient's age to complete this topic Insurance [employer] MEDICARE [employer] MEDICARE Advance Directives Documents on File Type Date Recorded 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
--- OUTSIDE RECORDS SUMMARY | 2025-02-28 18:31 | XMS_ITS ---
Author Organization [facility] Address [address] [place] [address] Care Team Providers Care Service Loss Control Consultant Name Role Phone Edwin Allen Primary Care Provider Unavailabl e Edward, Carmen Unavailable [phone] REASON FOR VISIT Bill Encounters Encounter Location Date Provider Diagnosis [facility] [address] [place] [address] 01/21/2024 Carmen [place] Plan Of Treatment No Information Progress Notes * Bethany BROOKE GDOB: 1 (83 yo F)Acc No.[id number]:01/21/2024 Patient:?Bethany Brooke :1940???Age:83 Y???Sex:Female Address:[address] [place] [id number] * true * Date:? Generated for Melaniei poornima/Girish/eTransmitting on:?02/28/2025 06:30 PM EDT
--- OUTSIDE RECORDS SUMMARY | 2025-02-28 18:31 | XMS_ITS ---
Author Organization [facility] Care Team Providers Care Tool Radial Drill Press Set Up Operator Name Role Phone Cindy Thomas Unavailable Unavailable Gloria Figueroa Unavailable Unavailable Pge Yañez Unavailable Unavailable Roslyn Saenz Unavailable Unavailable Shakir Morgan Unavailable Unavailable Briana Valerio Unavailable Unavailable Allergies and adverse reactions Code CodeSystem Substance Reaction Severity StartDate Concern Status 23112 RXNORM Simvastatin Unknown 11/26/2022 active Latex Unknown 11/26/2022 active Care Team Name Role Address Phone Organization Dates Peg Yañez PCP [address] [facility] [address], [place], [address], [place] (Office): [facility] 11/27/2022 - 12/09/2022 Cindy Thomas Attending Physician [address] [place] [address], [address], [place] (Office): [facility] 11/27/2022 - 12/09/2022 Gloria Figueroa Attending Physician [address] [facility] [address], [place], [address], [place] (Office): [facility] [place] 11/27/2022 - 12/09/2022 Roslyn Saenz Attending Physician [address] [facility] [address], [place], [address], [place] (Office): [facility] [place] [facility] 11/27/2022 - 12/09/2022 Shakir Morgan Attending Physician [address] [place], [address], [place] (Office): [facility] 11/27/2022 - 12/09/2022 Briana Valerio Attending Physician [address] [place], [address], [facility] (Office): [facility] 11/27/2022 - 12/09/2022 Immunizations Immunization Status Vaccine Details Vaccine Code CodeSystem Date Notes Influenza completed Influenza, split virus, trivalent, injectable, contains preservative 141 CVX created date: 12/09/2022 administere d date: 09/27/2021 Influenza completed Influenza, split virus, trivalent, injectable, contains preservative 141 CVX created date: 12/09/2022 administere d date: 12/23/2019 Pneumococcal Conjugate Vaccine (PCV13) completed pneumococcal conjugate vaccine, 13 valent 133 CVX created date: 12/09/2022 administere d date: 12/25/2015 Pneumococcal Polysaccharide Vaccine (PPSV23) completed pneumococcal polysaccharide vaccine, 23 valent 33 CVX created date: 12/09/2022 administere d date: 12/23/2019 SARS-COV-2 (COVID-19) completed SARS-COV-2 (COVID-19) vaccine, mRNA, spike protein, LNP, preservative free, 50 mcg/0.5 mL dose Mfmegan: Silvia Step 2 of Multi-step with next step required 221 CVX created date: 12/09/2022 administere d date: 04/09/2021 SARS-COV-2 (COVID-19) completed SARS-COV-2 (COVID-19) vaccine, mRNA, spike protein, LNP, preservative free, 50 mcg/0.5 mL dose Mfg: Moderna Step 1 of Multi-step with next step required 221 CVX created date: 12/09/2022 consent date: 12/09/2022 administere d date: 03/12/2021 Mental Status Section Date Assessment Total Score Description 12/09/2022 CAM 0 No delirium ind icated 12/03/2022 BIMS 09 moderate cognit efren impairment CAM 0 No delirium ind icated Problems Problem # Description Date of onset Resolved Date Code CodeSystem Concern Status 1 ACUTE RESPIRATORY FAILURE WITH HYPOXIA [address] active 2 BOYD'S ESOPHAGUS WITH DYSPLASIA, UNSPECIFIED [address] active 3 CHRONIC KIDNEY DISEASE, STAGE 3 UNSPECIFIED [address] active 4 DIAPHRAGMATIC HERNIA WITHOUT OBSTRUCTION OR GANGRENE [address] active 5 DIFFICULTY IN WALKING, NOT ELSEWHERE CLASSIFIED [address] active 6 ESSENTIAL (PRIMARY) HYPERTENSION [address] active 7 HEART FAILURE, UNSPECIFIED [address] active 8 HYPERLIPIDEMIA, UNSPECIFIED [address] active 9 [address]KALEMIA [address] active 10 MUSCLE WEAKNESS (GENERALIZED) [address] active 11 OTHER ILL-DEFINED HEART DISEASES [address] active 12 PAROXYSMAL ATRIAL FIBRILLATION [address] active 13 PERIPHERAL VASCULAR DISEASE, UNSPECIFIED [address] active 14 UNSPECIFIED DIASTOLIC (CONGESTIVE) HEART FAILURE [address] active 15 UNSTEADINESS ON FEET [address] active Reason for Referral No Reasons for Referral Entered Social History Social History Observation Description Start Date End Date Code Code System Current Smoking Status Tobacco smoking consumption unknown 717681396 SNOMED CT Sex Assigned At Female 1940 70280-2 [facility] Vital Signs Code Code System Vitals Name Values and Units Timing Information 51250-8 [facility] Pain Level Value=0.0 12/09/2022 9279-1 [facility] Respiratory Rate Value=18.0 Units=/m in 12/09/2022 64206-8 [facility] O2 % BldC Oximetry Value=94.0 Units= % 12/09/2022 8310-5 [facility] Body Temperature Value=97.3 Units=?? F 12/09/2022 8462-4 [facility] Blood Pressure-Diastolic Value=55 Un its=mmHg 12/09/2022 8480-6 [facility] Blood Pressure-Systolic Myexm=316 Un its=mmHg 12/09/2022 8867-4 [facility] Heart rate Value=88.0 Units=/min 08/2023 51256-3 [facility] Weight Gebzk=998.6 Units=Lbs 08/2023 8302-2 [facility] Height Value=64.0 Units=Inches 11/27/2022
--- OUTSIDE RECORDS SUMMARY | 2025-02-28 18:31 | XMS_ITS | Patient Health Record ---
Author Organization [facility] Address [address] [place] [address] Care Team Providers Care Pre School Teacher Name Role Phone Edwin [place] Primary Care Provider Unavailabl e EdwardCarmen Unavailable [phone] Allergies Allergen (clinical drug ingredient) Drug/Non Drug Allergy documented on EMR Reaction Allergy Type Onset Date Status Information temporarily unavailable Colesterol Medicine sick Drug Allergy Active Reason For Referral No Information Medications Medication SIG (Take, Route, Fr equency, Duration) Notes Start Date End Date Status B-12 Active Daily Vitamins as directed Orally Active Lisinopril 20 MG 1 tablet Orally Once a day for 30 day(s) Active Omeprazole 20 MG 1 capsule Orally Onc e a day for 30 day(s) Active Magnesium 250 MG 1 tablet with a meal Orally Once a day for 30 day(s) Active Ramakrishna Aspirin Active Problems Problem Type SNOMED Code ICD Code Onset Dates Problem Status W/U Status Risk Notes Problem Hallux valgus (580728387) Hallux Valgus (735.0) Active confirmed Problem Hammer toe (270509825) Hammer toe (735.4) Active confirmed Problem Pain in limb (26593623) Pain in Limb (729.5) Active confirmed Plan Of Treatment Pending Test Test Name Order Date X ray : Foot, right 3V 03/09/2012 Insurance Providers Payer Name Payer Address Payer Phone Subscriber Number Group Number Insured Name Patient Relationship to Insured Coverage Start Date Coverage End Date Medicare National Govt Svcs [employer] [address] [place] [address] [phone] [id number] Bethany Brooke Self - patient is the insured [employer] [address] [place] [address] [id number] Bethany Brooke Self - patient is the insured Medical (General) History Medical History History ICD Code anemia anxiety Cholesterol depression osteoporosis poor circulation Surgical History Surgery Date(Month/Year) eye surgery 02/2007 stints 2007, 2008
--- OUTSIDE RECORDS SUMMARY | 2025-02-28 18:31 | XMS_ITS | Patient Health Record ---
Author Organization [facility] Address [address] [place] [address] Care Team Providers Care Mica Paster Name Role Phone Edwin [place] MD Primary Care Provider Deyvi Casarez [phone] Allergies Allergen (clinical drug ingredient) Drug/Non Drug Allergy documented on EMR Reaction Allergy Type Onset Date Status Simvastatin Unknown Drug Allergy Activ e Reason For Referral No Information Medications Medication SIG (Take, Route, Frequency, Duration) Notes Start Date End Date Status Spironolactone 25 MG TAKE 1/2 TABLET BY MOUTH AT BEDTIME Oral for 90 Active Multivitamins 1 1 Orally QD Ac tive Metoprolol Tartrate 25 MG Oral for 90 Active Omeprazole 20 MG 1 CAPSULE BID ORALLY 30 DAY(S) Orally twice a day for 30 Active Furosemide 40 MG ml Orally Once a day Active Atorvastatin Calcium 40 MG 1 tablet Oral ly Once a day Active Lisinopril 10 MG 1 tablet Orally Once a day Active Metoprolol Succinate ER 25 MG 1 tablet Orally Once a day Active amLODIPine Besylate 2.5 MG 1 tablet Oral ly Once a day Unknown Calcium 600-D 600-400 MG-UNIT 1 tablet with food Orally Once a day Active Eliquis 5 MG 1 tab Orally BID Active Magnesium Hydroxide 400 MG/5ML 1 tablets as needed Orally prn Active Immunizations Vaccine Route Administration Date Status Comme nts Flu vaccine no Preserv 3 and > Unknown 09/12/2014 Admin istered Flu vaccine no Preserv 3 and > Unknown 09/11/2015 Admin istered Influenza Unknown 12/31/2016 Administered Influenza Unknown 07/31/2021 Administered Problems Problem Type SNOMED Code ICD Code Onset Dates Problem Status W/U Status Risk Notes Problem 0480278990383894 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 confirmed Problem 9530533 Melena (K92.1) Active confirmed Problem 651628081 Gastroesophageal reflux disease without esophagitis (K21.9) Active confirmed Plan Of Treatment Pending Test Test Name Order Date ELECTROLYTES 01/22/2018 BUN 01/22/2018 CREATININE 01/22/2018 CBC w DIFF 01/22/2018 Future Test Test Name Order Date UPPER GI ENDOSCOPY 03/18/2016 UPPER GI ENDOSCOPY 03/27/2017 Insurance Providers Payer Name Payer Address Payer Phone Subscriber Number Group Number Insured Name Patient Relationship to Insured Coverage Start Date Coverage End Date MEDICARE OF [place] [address] [place] [address] [id number] APRIL DARBY Self - patient is the insured Medical (General) History Medical History History ICD Code Colonoscopy 03/26/2009 with a finding of ischemic colitis, but was otherwise negative for polyps; also had a neg. 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 dating back to 2004, with yearly endoscopies showing similar findings including the one in 08/2012--see below for results of the 07/2015 EGD HTN PVD-treated with an aortic a ngioplasty and bilateral iliac artery [place]oplasty with [place] [facility] [place] apnea-doesn't use a CPAP mask Denies [place],DM,CVA,Lung disease,renal dise ase EGD in 07/2015--1 set of the biopsies from the Roger's esophagus with low grade dysplasia bordering on high grade dysplasia--there was no sign of carcinoma EGD 2016 with finding of the hiatal hernia and long segment of Roger's--all biopsies negative for dysplasia CHF- 12/2021 Surgical History Surgery Date(Month/Year) Pilonidal cyst Vascular IR procedures as above 2 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
--- OUTSIDE RECORDS SUMMARY | 2025-02-28 18:31 | XMS_ITS | Clinical Summary ---
Author Organization [facility] Address [address] [place] [address] Phone Care Team Providers Care Mems Process Engineer Name Role Phone Edwin [place] MD Primary Care Provider Allergies Active Allergy Reactions Criticality Noted Date Comments Simvastatin Nausea Only 04/10/2021 Medications cyanocobalamin ([facility] Vitamin B-12) 1000 MCG tablet 1,000 mg Active Magnesium 250 MG tablet 1 (one) time each day Active Multiple Vitamin (MULTIVITAMIN ADULT PO) Take 1 capsule by mouth 1 (one) time each day Active acetaminophen (TYLENOL) 325 MG tablet Take 325-650 mg by mouth every 6 (six) hours if needed 07/01/2017 Active apixaban (Eliquis) 5 MG tablet Take 1 tablet by mouth 2 (two) times a day Active aspirin (ST HARPREET) 81 MG EC tablet Take 1 tablet by mouth 1 (one) time each day Active Calcium Carbonate-Vitam in D 600-200 MG-UNIT capsule Take 2 capsules by mouth 1 (one) time each day Active atorvastatin (LIPITOR) 40 MG tablet Take 1 tablet by mouth 1 (one) time each day Active furosemide (Lasix) 40 MG tablet Take 1 tablet by mouth 1 (one) time each day Active metoprolol succinate XL (TOPROL-XL) 25 MG 24 hr tablet Take 1 tablet by mouth 1 (one) time each day Active spironolactone (ALDACTONE) 25 MG tablet Take 12.5 mg by mouth 1 (one) time each day 03/25/2021 Active Calcium Citrate 250 MG tablet Take by mouth Ac tive Active Problems Problem Noted Date Diagnosed Date Acute nontraumatic kidney injury 04/10/2021 Chronic kidney disease stage 3 04/10/2021 Hypertensive heart disease without congestive he art failure 04/10/2021 Hypertensive renal disease 04/10/2021 Hyperlipidemia 07/31/2017 Peripheral arterial occlusive disease 04/22/2017 Long-term current use of anticoagulant 7 Left subclavian vein stenosis 09/14/2015 Overview (04/10/2021): Subclavian Stenosis Left Subclavian Stenosis Asymptomatic carotid artery stenosis 09/14/2015 Overview (04/10/2021): Carotid artery stenosis Hypertensive disorder 01/27/2014 Overview (04/10/2021): Hypertensive disorder Intermittent claudication 09/24/2012 Overview (04/10/2021): Claudication History of procedure 09/24/2012 Overview (08/30/2024): S/P Insertion of iliac artery stent Replacing diagnoses that were inactivated after the 08/30/24 Regulatory Import Immunizations Name Administration Dates Next Due Pneumococcal Polysaccharide 02/10/2014 Family History Medical History Relation Comments Cancer Father Heart disease Mother Relation Status Comments Father Unknown Mother Unknown Social History Tobacco Use Types Packs/Day Years Used Date Smoking Tobacco: Never Smokeless Tobacco: Never Alcohol Use Standard Drinks/Week Comments Yes 0 (1 standard drink = 0.6 oz pure alcohol) Alcoholic Drinks/day: Occasional social drink Comments Unknown Sex and Gender Information Value Date Recorded Sex Assigned at Not on file Legal Sex Female 5:08 PM EST Gender Identity Not on file Sexual Orientation Not on file Last Filed Vital Signs Vital Sign Reading Time Taken Comments Blood Pressure 130/70 11/04/2021 2:10 PM EST Pulse 103 11/04/2021 2:10 PM EST Temperature - - Respiratory Rate - - Oxygen Saturation 95% 11/04/2021 2:10 PM EST Inhaled Oxygen Concentration - - Weight 74.6 kg (164 lb 6.4 oz) 11/04/2021 2:10 P M EST Height 160 cm (5' 3 ) 10/05/2020 12:00 PM EST Body Mass Index 29.12 10/05/2020 12:00 PM EST Plan of Treatment Health Maintenance Due Date Last Done Comments Pneumococcal Vaccine: 65+ Ye ars (2 of 2 - PCV) 02/10/2015 02/10/2014 Influenza Vaccine (#1) 2024 Hepatitis B Vaccine Aged Out No longe r eligible based on patient's age to complete this topic Insurance MEDICARE MEDICARE Care Teams Mems Process Engineer Relationship Specialty Start Date End Date Edwin [place] MD [address] [place], [place] PCP - General 12/10/20
--- OUTSIDE RECORDS SUMMARY | 2025-02-28 18:31 | XMS_ITS ---
Author Organization [facility] Care Team Providers Care Small Arms Repairer Name Role Phone Heber Brown Unavailable Unavailable Ramona Bhatti Unavailable Unavailable Princess Urban Unavailable Unavailable Allergies and adverse reactions No Known Allergies Care Team Name Role Address Phone Organization Dates Heber Brown PCP [address], [address], [place] (Office): : [facility] 12/09/2022 - 12/22/2022 Ramona Bhatti Attending Physician [address] [address], [place], [address], [place] (Office): : [facility] 12/09/2022 - 12/22/2022 Princess Urban Attending Physician [address], [address], [place] (Office): [facility] 12/09/2022 - 12/22/2022 Goals Section Description Status Target Date I will be at reduced risk fo r adverse drug reactions through the review date. Active 12/29/2022 I will be at reduced risk fo r complications of self care performance deficit and impaired mobility daily through the review date. Active 12/29/2022 I will be at reduced risk fo r new or worsened impaired skin integrity daily through the review date. Active 12/29/2022 I [facility] be discharged to [facility] location based upon physical/cognitive status. Active 12/29/2022 I will maintain adequate nut ritional status as evidenced by maintaining weight within +/- 5% of CBW, no s/sx of malnutrition, and consuming at least 75% of at least 2-3 meals daily through review date. Active 12/29/2022 I will not experience compli cations of oral/dental health problems through the review date. Active 12/29/2022 I will not have skin breakdo wn due to incontinence through the review date. Active 12/29/2022 I will not have skin breakdo wn due to incontinence through the review date. Active 12/29/2022 The resident's advance direc tives are in effect and their wishes will be carried out through the next review. Active Immunizations Immunization Status Vaccine Details Vaccine Code CodeSystem Date Notes Influenza cancelled Influenza, split virus, trivalent, injectable, contains preservative 141 CVX created date: 12/18/2022 consent date: 12/18/2022 Educated by on 12/17/2022 states already had. No record found PCV13 (Pneumococcal Conjugate)Vaccin e completed pneumococcal conjugate vaccine, 13 valent 133 CVX created date: 12/12/2022 administer ed date: 12/25/2015 PPSV23 (Previous Pneumococcal Polysaccharide)V accine completed pneumococcal polysaccharide vaccine, 23 valent 33 CVX created date: 12/12/2022 administer ed date: 12/23/2019 SARS-COV-2 (COVID-19) completed SARS-COV-2 (COVID-19) vaccine, mRNA, spike protein, LNP, bivalent, preservative free, 50 mcg/0.5 mL or 25 mcg/0.25 mL dose Mfg: MODERNA Step 2 of Multi-step with next step required 229 CVX created date: 12/12/2022 administer ed date: 04/09/2021 SARS-COV-2 (COVID-19) completed SARS-COV-2 (COVID-19) vaccine, mRNA, spike protein, LNP, bivalent, preservative free, 50 mcg/0.5 mL or 25 mcg/0.25 mL dose Mfg: CHRISA Step 1 of Multi-step with next step required 229 CVX created date: 12/12/2022 administer ed date: 03/12/2021 Moderna COVID-19 Bi-valent Solution cancelled SARS-COV-2 (COVID-19) vaccine, mRNA, spike protein, LNP, bivalent, preservative free, 50 mcg/0.5 mL or 25 mcg/0.25 mL dose 229 CVX created date: 12/18/2022 consent date: 12/18/2022 Educated by on 12/17/2022 Mental Status Section Date Assessment Total Score Description 12/22/2022 BIMS 13 cognitively int act CAM 0 No delirium ind icated PHQ-9 00 12/15/2022 BIMS 13 cognitively int act CAM 0 No delirium ind icated PHQ-9 00 Problems Problem # Description Date of onset Resolved Date Code CodeSystem Concern Status 1 ACUTE ON CHRONIC DIASTOLIC (CONGESTIVE) HEART FAILURE 12/09/[address] active 2 ATHEROSCLEROTIC HEART DISEASE OF [place] CORONARY ARTERY WITHOUT ANGINA PECTORIS 12/09/[address] active 3 BOYD'S ESOPHAGUS WITHOUT DYSPLASIA 12/09/[address] active 4 ESSENTIAL (PRIMARY) HYPERTENSION 12/09/[address] active 5 GASTRO-ESOPHAGEAL REFLUX DISEASE WITHOUT ESOPHAGITIS 12/09/[address] active 6 HYPERLIPIDEMIA, UNSPECIFIED 12/09/[address] active 7 MUSCLE WASTING AND ATROPHY, NOT ELSEWHERE CLASSIFIED, LEFT LOWER LEG 12/09/[address] active 8 MUSCLE WASTING AND ATROPHY, NOT ELSEWHERE CLASSIFIED, RIGHT LOWER LEG 12/09/[address] active 9 PARTIALLY VACCINATED FOR COVID-19 12/09/19 Z28.311 ICD-10-CM active 10 UNSPECIFIED ATRIAL FIBRILLATION 12/09/[address] active Reason for Referral No Reasons for Referral Entered Social History Social History Observation Description Start Date End Date Code Code System Current Smoking Status Tobacco smoking consumption unknown 674548818 SNOMED CT Sex Assigned At Female 1940 98510-7 [facility] Vital Signs Code Code System Vitals Name Values and Units Timing Information 14093-5 [facility] Pain Level Value=0.0 12/22/2022 9279-1 [facility] Respiratory Rate Value=18.0 Units=/m in 12/21/2022 8462-4 [facility] Blood Pressure-Diastolic Value=59 Un its=mmHg 12/21/2022 8480-6 [facility] Blood Pressure-Systolic Pmzlf=259 Un its=mmHg 12/21/2022 8310-5 [facility] Body Temperature Value=98.1 Units=?? F 12/21/2022 8867-4 [facility] Heart rate Value=77.0 Units=/min 03770-8 [facility] O2 % BldC Oximetry Value=94.0 Units= % 12/21/2022 86771-5 [facility] Weight Dorsn=883.4 Units=Lbs 8302-2 [facility] Height Value=64.8 Units=Inches 12/10/2022
[2025-02-28 19:45] VITALS: O2SAT 97
[2025-02-28 20:28] LABS: Troponin-I High Sensitivity 17.7 ng/L (<3.5-17.0)
[2025-02-28 20:39] VITALS: BP 137/58; PULSE 88; RESP 18; TEMP 37.1; O2SAT 95
--- NOTE | 2025-02-28 22:12 | PC.NURSE ---
no repeat trop needed per [facility] [employer]IE[facility] Chi
[2025-02-28 23:15] VITALS: BP 151/54
[2025-02-28] MEDS: Furosemide 40 MG/4 ML VIAL IVPUSH (23:15)
--- NOTE | 2025-02-28 23:25 | P.HPHOSP_ITS ---
History of Present Illness Date of Service: 02/28/25 <[facility] - Last Filed: 03/01/25 00:03> Attending physician on admission: Hemanth Og <[facility] - Last Filed: 03/01/25 00:03> Chief Complaint: dyspnea, cough <[facility] - Last Filed: 03/01/25 00:03> Patient is an 84-year-old female with past medical history hypertension, persistent AFib on Eliquis, chronic kidney disease stage IIIB, severe mitral valve regurgitation, systolic heart failure EF 50-55%, CAD, CABG, cognitive deficits, peripheral arterial disease, hyperlipidemia, large hiatal hernia with GERD, Roger's esophagus, osteoarthritis, and chronic constipation with straining presents to emergency room with complaints of severe shortness of breath with a persistent irritable cough that is nonproductive. Patient did not have fever, chills and did not require oxygen. Chest x-ray positive for interstitial markings in pulmonary reticular pattern no evidence of pneumonia. Patient responded well to IV Lasix. Remains on RA. All viral studies are negative. Patient currently denies any chest pain, shortness of breath at rest, abdominal pain, nausea, vomiting, diarrhea but reports persistent constipation often times with straining. Patient's daughter also present and reports that patient is at times incontinent and is currently wearing depends. Patient has been living with her son who is often not in the home setting and patient has often alone. Family has noted that patient has mobility issues have worsened and now patient requires 2 canes to ambulate to the bathroom. Patient often has accidents due to the amount of time she needs to ambulate to the restroom. Patient does present with maceration of the skin in the gluteal fold and the perineum area. No other open wounds found. Family is requesting help with finding in-home nursing care. Patient is currently [employer] eligible. Daughter is proposing to move in with patient in the brother's home so that patient will have somebody there . Patient will be evaluated by Physical therapy during this admission under observation only. Patient does follow with [facility]. Echo will be ordered as last echo was in 2021. Cardiology can be consulted if needed. <[facility] - Last Filed: 03/01/25 00:03> Review of Systems 2 Review of Systems: Pt denies chest pain, SOB at rest, dysphagia, reflux, N/V, diarrhea but reports constipaton with straining most days. Pt denies MCKOY, visual changes, hearing loss, or recent falls. Pt is incontinent of bladder and bowel intermittently due to the time it takes pt to walk to the BR. Mobility has decreased overall per pt's daughter. Appetite has been good. Pt does not weigh daily. Pt does not follow fluid restriction and does like to eat fast food. <ERIK Worrell - Last Filed: 03/01/25 00:03> Yes all other systems are reviewed and are negative <ERIK Worrell - Last Filed: 03/01/25 00:03> [facility] Medical History: Medical History PAD (peripheral artery disease) Mitral valve regurgitation Persistent atrial fibrillation CHF (congestive heart failure) Peripheral vascular disease Essential hypertension Chronic heart failure with preserved ejection fraction Atherosclerotic cardiovascular disease Cognitive impairment Coronary artery disease of bypass graft of [place] heart with stable angina pectoris Subclavian artery stenosis, left Colitis Bilateral femoral artery stenosis Hypercholesterolemia Roger's esophagus <ERIK Worrell - Last Filed: 03/01/25 00:03> Functional capacity: uses cane/walker <ERIK Worrell - Last Filed: 03/01/25 00:03> Patient : No <ERIK Worrell - Last Filed: 03/01/25 00:03> Family History: Family History Father No problems noted. Mother No problems noted. <ERIK Worrell - Last Filed: 03/01/25 00:03> Surgical History: Surgical History Status post aorto-coronary artery bypass graft History of coronary artery bypass graft (~06/2020) <ERIK Worrell - Last Filed: 03/01/25 00:03> Social History: Social History Household Members: Family Housing: House Do you presently have visiting nurse or other home services: Yes (pt visits) Alcohol intake: never Comment: 1-2 A year Patient Tobacco Use Status: Former Tobacco user Tobacco use type: Cigarette Years Smoked: quit in 1979 e-Cigarette/Vaping Use: Never Used Second Hand Smoke Exposure: No service: No Current occupational status: retired Cognitive needs: Yes (cane, transport wheelchair, Walker) Hearing needs: No Vision needs: Yes (glasses) <[facility] - Last Filed: 03/01/25 00:03> Ebola Risk: Travel/Contact With Anyone From Affected Area/s: No <[facility] - Last Filed: 03/01/25 00:03> Has Patient Experienced Ebola Symptoms: No <[facility] - Last Filed: 03/01/25 00:03> Meds Allergies/Adverse reactions: Allergies Allergy/AdvReac Type Severity Reaction Status Date / Time latex Allergy Mild rash Verified 02/28/25 15:11 simvastatin [Simvastatin] Allergy Mild NAUSEA Verified 02/28/25 15:11 <[facility] - Last Filed: 03/01/25 00:03> Active Medications: Current Medications Acetaminophen (Acetaminophen 325 Mg Tablet) 650 mg PO Q6H PRN PRN Reason: Pain, Mild 1-3,fever,headache Albuterol/Ipratropium (Albuterol/Iprat 2.5/0.5mg 3 Ml Ampul.Neb) 3 ml INHALE Q4H PRN PRN Reason: Shortness of Breath/Wheezing Benzonatate (Benzonatate 100 Mg Capsule) 100 mg PO TID PRN PRN Reason: Cough Calcium Carbonate (Calcium Carbonate 750 Mg Tab.Chew) 750 mg PO Q4H PRN PRN Reason: Heartburn Furosemide (Furosemide 40 Mg/4 Ml Vial) 40 mg IVPUSH BID@0900,1800 KARLIE; Protocol Magnesium Hydroxide (Milk Of Magnesia 30 Ml Oral.Susp) 30 ml PO DAILY PRN PRN Reason: Constipation Melatonin (Melatonin 3 Mg Tablet) 6 mg PO BEDTIME PRN PRN Reason: Insomnia Ondansetron HCl (Ondansetron Hcl 4 Mg/2 Ml Vial) 4 mg IVPUSH Q8H PRN PRN Reason: Nausea and Vomiting Polyethylene Glycol (Polyethylene Glycol 3350 17 Gm Powd.Pack) 17 gm PO DAILY KARLIE Senna (Sennosides 8.6 Mg Tablet) 17.2 mg PO BEDTIME KARLIE Sodium Chloride (0.9 % Sodium Chloride Flush 3 Ml Syringe) 3 ml IVFLUSH QSHIFT KARLIE <[facility] - Last Filed: 03/01/25 00:03> Home medications: Home Medications ?Medication ?Instructions ?Recorded ?Confirmed ?Last Taken ?Type multivitamin 1 tab PO DAILY 09/04/20 09/30/24 11/07/22 History calcium carbonate 500 mg PO BID 12/03/21 09/30/24 11/07/22 History magnesium oxide 400 mg PO DAILY 12/03/21 09/30/24 11/07/22 History sennosides 8.6 mg capsule (senna) 8.6 mg PO BEDTIME 09/30/24 09/30/24 Unknown History <[facility] - Last Filed: 03/01/25 00:03> Physical Exam 2 Vital Signs and Narrative: Vital Signs: Last Vital Signs Temp 98.7 F 02/28/25 20:39 Pulse 88 02/28/25 20:39 Resp 18 02/28/25 20:39 BP 151/54 H 02/28/25 23:15 Pulse Ox 95 02/28/25 20:39 O2 Del Method Room Air 02/28/25 20:39 BMI result Body Mass Index 27.8 <[facility] - Last Filed: 03/01/25 00:03> Alert and orientated X3, memory short and longterm fair and pt will admit that she can't remember certain things. Neuro: CN II-X11 intact, no deficits, visual acuity intact EYES: PERRLA, EOM intact, conjunctiva pink ENT: hearing intact, no issues with swallowing, uvula midline, lips moist, nares patent no epistaxis Cardiac: S1 S2 irregular, rate controlled, holosytolic murmur noted faintly, no JVD, no edema in Lower ext, no carotid bruit Pulmonary: lungs diminshed B Abdominal: BS active in all 4 quadrants, no guarding, tenderness, rebounding MSK: strength 3/5 upper and 4/5 lower extremities, mild atrophy lower extremities : no CVA tenderness no bladder distension Extremities: no edema in lower extremities, PT and DP pulses palpable +2 Psych: mood stable, judgement and insight fair Skin: macerated skin noted in gluteal fold and posterior perineum. Area red, swollen and appears fungal in presentation. Minor excoriations on BLEs <[facility] - Last Filed: 03/01/25 00:03> Results Labs CBC and Chem 7: 02/28/25 15:56 02/28/25 15:56 <[facility] - Last Filed: 03/01/25 00:03> Labs: Laboratory Results - last 24 hr 02/28/25 15:56 MCV 90.3 MCH 30.3 MCHC 33.5 RDW 14.0 Plt Count 221 MPV 9.7 Immature Gran % (Auto) 0.4 Neut % (Auto) 75.0 H Lymph % (Auto) 10.9 L [place] % (Auto) 10.1 Eos % (Auto) 2.9 Baso % (Auto) 0.7 Lymph # (Auto) 0.8 L [place] # (Auto) 0.8 Eos # (Auto) 0.2 Baso # (Auto) 0.1 Abs Immat Gran (auto) 0.03 Absolute Neuts (auto) 5.7 Absolute Nucleated RBC 0.000 Nucleated RBC % (auto) 0.0 Anion Gap 13 Estim Creat Clear Calc 25.7 Estimated GFR 30 Random Glucose 96 Calcium 9.3 D Magnesium 2.2 Total Bilirubin 0.6 Direct Bilirubin 0.2 AST 28 ALT 11 Alkaline Phosphatase 112 B-Natriuretic Peptide 650 H Total Protein 7.6 Albumin 3.6 Influenza Type A (PCR) NEGATIVE Influenza Type B (PCR) NEGATIVE RSV RNA Qual (PCR) NEGATIVE SARS-CoV-2 RNA (RT-PCR) NEGATIVE <[facility] - Last Filed: 03/01/25 00:03> Imaging Radiologist's Impressions: Impressions Chest X-Ray 02/28/25 15:14 IMPRESSION: Large volume hiatal hernia. Mild interstitial lung edema in the correct clinical settings. 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 Electronically signed by: Eduar Lu MD 02/28/2025 03:31 PM EDT RP <[facility], [employer] - Last Filed: 03/01/25 00:03> Assessment and Plan (1) CHF exacerbation: Qualifiers: Heart failure type: systolic Qualified Code(s): I50.23 - Acute on chronic systolic (congestive) heart failure <Cherie Eulogio, [employer] - Last Filed: 03/01/25 00:03> Status: Acute <Cherie Eulogio, [employer] - Last Filed: 03/01/25 00:03> (2) Acute kidney injury superimposed on stage 3b chronic kidney disease: Status: Acute <Cherie Eulogio, [employer] - Last Filed: 03/01/25 00:03> (3) Maceration of skin: Status: Acute <[facility], [employer] - Last Filed: 03/01/25 00:03> (4) Persistent atrial fibrillation: Status: Acute <Cherie Eulogio, [employer] - Last Filed: 03/01/25 00:03> (5) Severe mitral valve regurgitation: Status: Acute <[facility], [employer] - Last Filed: 03/01/25 00:03> (6) Hiatal hernia with GERD: Status: Acute <[facility], [facility] - Last Filed: 03/01/25 00:03> (7) Self-care deficit: Status: Acute <[facility], [employer] - Last Filed: 03/01/25 00:03> (8) Roger's esophagus: Qualifiers: Roger's esophagus type: without dysplasia Qualified Code(s): K22.70 - Roger's esophagus without dysplasia <[facility], [employer] - Last Filed: 03/01/25 00:03> Status: Acute <[place] Eulogio, [employer] - Last Filed: 03/01/25 00:03> (9) Cognitive impairment: Status: Acute <Cherie Eulogio, [employer] - Last Filed: 03/01/25 00:03> (10) Constipation: Status: Acute <Cherie Krishnan, [employer] - Last Filed: 03/01/25 00:03> Patient is an 84-year-old female with past medical history hypertension, persistent AFib on Eliquis, chronic kidney disease stage IIIB, severe mitral valve regurgitation, systolic heart failure EF 50-55%, CAD, CABG, cognitive deficits, peripheral arterial disease, hyperlipidemia, large hiatal hernia with GERD, Roger's esophagus, osteoarthritis, and chronic constipation with straining is being admitted for CHF exacerbation that prompted a very irritible cough that has since improved. The cough is non productive. No evidence of PNA on CXR. Pt will continue on IV lasix 40 BID for now and ECHO tomorrow as last echo was in 2021. Pt has known severe MR and follows with [facility]. 1. CHF exacerbation, systolic IV lasix 40 BID, K 5.0, BMP in AM BNP 650 ECHO in AM Pt remains on RA, add O2 if needed to maintain POX > 93 Telemetry Low Na diet [facility] Fluid restriciton of 1500 mls CHF education started with admission Consult Cardiology if needed 2. SHANNAN on CKD 3B GFR 30 Cr CL 25.7 Strict I/Os Avoid hypotension, No NSAIDs BMP in AM, consult nephrology if needed 3. Maceration of skin in gluteal fold and perinium area Wound care consult ordered Nystatin cream startred BID Incontinence care needed 4. Persistent AFIB Eliquis and BB once MED REDC completed Rate controlled currently TSH and MG WNL 5. Severe MVR Known since 2021, pt is not a surgical candidate due to age, hx of CABG per [employer] Echo ordered for AM, last was in 2021 6. Large Hiatal Hernia with GERD, Roger's Esophagus Chronic, no issues with dysphagia, aspiration Continue omeprazole 7. Self-care deficit Per pt's daughter, this has become more evident over the last 2 months Pt's mobility is overall declining, no falls have occurred so far Daughter is planning on moving in with pt, as brother is often away (pt lives in son's home) Pt does not have life line device. Family is requesting help with obtaining in home [employer]/Nursing care, life line device CM requested MOLST completed this admission, Full code PT eval ordered 9. Cognitive impairment Memory is poor overall, pt is interactive and has supportive family but likely cannot be alone any longer at home CM requested to review options with family 10. Constipation with straining Senna HS Mirilax daily reviewed risks associated with straining, prevention Pt admitted under OBS, likely will need 24 to 48 hours of inpt hospitalization for stabilization and to plan safe discharge home. MED REC will need to be complete in AM, 03/01. <Cherie Krishnan, [employer] - Last Filed: 03/01/25 00:03> Patient is an 84-year-old female with past medical history hypertension, persistent AFib on Eliquis, chronic kidney disease stage IIIB, severe mitral valve regurgitation, systolic heart failure EF 50-55%, CAD, CABG, cognitive deficits, peripheral arterial disease, hyperlipidemia, large hiatal hernia with GERD, Roger's esophagus, osteoarthritis, and chronic constipation with straining is being admitted for CHF exacerbation that prompted a very irritible cough that has since improved. The cough is non productive. No evidence of PNA on CXR. Pt will continue on IV lasix 40 BID for now and ECHO tomorrow as last echo was in 2021. Pt has known severe MR and follows with [facility]. 1. CHF exacerbation, systolic IV lasix 40 BID, K 5.0, BMP in AM BNP 650 ECHO in AM Pt remains on RA, add O2 if needed to maintain POX > 93 Telemetry Low Na diet Daily weigths Fluid restriciton of 1500 mls CHF education started with admission Consult Cardiology if needed 2. SHANNAN on CKD 3B GFR 30 Cr CL 25.7 Strict I/Os Avoid hypotension, No NSAIDs BMP in AM, consult nephrology if needed 3. Maceration of skin in gluteal fold and perinium area Wound care consult ordered Nystatin cream startred BID Incontinence care needed 4. Persistent AFIB Eliquis and BB once MED REDC completed Rate controlled currently TSH and MG WNL 5. Severe MVR Known since 2021, pt is not a surgical candidate due to age, hx of CABG per [employer] Echo ordered for AM, last was in 2021 6. Large Hiatal Hernia with GERD, Roger's Esophagus Chronic, no issues with dysphagia, aspiration Continue omeprazole 7. Self-care deficit Per pt's daughter, this has become more evident over the last 2 months Pt's mobility is overall declining, no falls have occurred so far Daughter is planning on moving in with pt, as brother is often away (pt lives in son's home) Pt does not have life line device. Family is requesting help with obtaining in home [employer]/Nursing care, life line device CM requested MOLST completed this admission, Full code PT eval ordered 9. Cognitive impairment Memory is poor overall, pt is interactive and has supportive family but likely cannot be alone any longer at home CM requested to review options with family Pt admitted under OBS, likely will need 24 to 48 hours of inpt hospitalization for stabilization and to plan safe discharge home. MED REC will need to be complete in AM, 03/01. <Hemanth Og MD - Last Filed: 03/01/25 00:01> Total time managing care of this patient today: 45 minutes. <[facility] - Last Filed: 03/01/25 00:03> Quality Stroke Does the patient have a stroke diagnosis?: No <Cherie Krishnan [facility] - Last Filed: 03/01/25 00:03> Reason for No Anti-thrombotic by Day Two: N/A - Med Ordered <[place] Eulogio, [facility] - Last Filed: 03/01/25 00:03> VTE Prior VTE?: No <Darrtownjaz Krishnan [facility] - Last Filed: 03/01/25 00:03> VTE Risk Level:: Medical - moderate - high <[place] Eulogio, [facility] - Last Filed: 03/01/25 00:03> VTE Device Contraindication: N/A - Device Ordered <Cherie Eulogio [facility] - Last Filed: 03/01/25 00:03> VTE Drug Contraindication: N/A - Med Ordered <[place] Eulogio, [facility] - Last Filed: 03/01/25 00:03>
[2025-02-28 23:41] VITALS: BP 152/52; PULSE 95; RESP 18
[2025-03-01] VITALS (12 sets, daily range): BP systolic 120–150; BP diastolic 0–85; PULSE 78–102; RESP 14–18; TEMP 36.4–37.2; O2SAT 94–98
[2025-03-01] MEDS: Sennosides 8.6 MG TABLET 17.2 MG PO ×2 (00:19→20:28)
[2025-03-01] MEDS: Benzonatate 100 MG CAPSULE PO (00:19)
[2025-03-01] MEDS: 0.9 % Sodium Chloride Flush 3 ML SYRINGE IVFLUSH ×3 (00:20→20:38)
[2025-03-01] MEDS: guaiFENesin LA 600 MG TAB.ER.12H PO ×3 (00:20→20:21)
[2025-03-01 05:07] LABS: MANUAL DIFF FLAG NO
[2025-03-01 05:09] LABS: Basophils Absolute Auto 0.1 X10*3/uL (0.0-0.2); Basophils Percent Auto 0.7 % (0-2); Eosinophils Absolute Auto 0.2 X10*3/uL (0.0-0.4); Eosinophils Percent Auto 3.1 % (0-4); Hematocrit 34.4 % (37.0-47.0); Hemoglobin 11.8 g/dl (12.0-16.0); Imm Gran Abs Auto 0.02 X10*3/uL (0.00-0.03); Imm Gran Pct Auto 0.3 % (0.0-0.4); Lymphocytes Absolute Auto 0.8 X10*3/uL (1.2-4.9); Lymphocytes Percent Auto 10.7 % (20-40); Mean Corpuscular HGB Conc 34.3 g/dl (31.0-35.0); Mean Corpuscular Hemoglobin 30.5 pg (27.0-33.0); Mean Corpuscular Volume 88.9 fL (80.0-98.0); Mean Platelet Volume 9.9 fL (9.4-12.3); Monocytes Absolute Auto 0.8 X10*3/uL (0.1-1.2); Monocytes Percent Auto 11.7 % (2-11); Neutrophils Absolute Auto 5.2 x10*3/uL (2.0-8.3); Neutrophils Percent Auto 73.5 % (45-73); Platelet Count 201 X10*3/uL (160-400); Red Blood Count 3.87 X10*6/uL (4.20-5.50); Red Cell Distribution Width 14.1 % (11.0-16.0); White Blood Count 7.1 X10*3/uL (4.8-10.8)
[2025-03-01 05:32] LABS: Alanine Aminotransferase 10 U/L (0-31); Albumin Level 3.5 g/dL (3.5-5.0); Alkaline Phosphatase 103 U/L (39-117); Anion Gap 13 (12-20); Aspartate Amino Transferase 27 U/L (5-31); Bilirubin Total 0.7 mg/dL (0.0-1.0); Blood Urea Nitrogen 23 mg/dL (9-16); Calcium 8.9 mg/dL (8.4-10.2); Carbon Dioxide 26 mmol/L (22-29); Chloride 104 mmol/L (96-108); Creatinine Clr Calc Pharmacy 31.5; Estimated Glomerular Filt Rate 38; Glucose Random 100 mg/dL (60-115); Potassium 3.9 mmol/L (3.3-5.1); Sodium 139 mmol/L (135-145); Total Protein 7.3 g/dL (6.5-8.0)
--- NOTE | 2025-03-01 07:00 | CA_ITS ---
Transthoracic Echocardiogram Patient (Last, First, Middle): Bethany Brooke G Gender: Female Date of : 1940 Age: 84 Procedure Date: 03/01/2025 Procedure Type: Transthoracic Echocardiogram Location: ER Height: 162.56 cm Weight: 73.48 kg BSA: 1.79 m2 Heart Rate: 96 bpm BP: 150 / 60 mmHg [place] Dried Salt: SB Referring MD: Cherie Krishnan GASTROINTESTINAL TECHNICIANSteve Symptoms: CHF exacerbation, last echo 2021 Study Quality: Adequate ECG Rhythm: Atrial Fibrillation Conclusions: - LVEF difficult to assess even with contrast. Probably in the normal range. No overt wall motion abnormalities. - The left atrium is severely dilated. - There is moderate aortic valve stenosis. - There is severe mitral annular calcification. There is mild to moderate mitral valve regurgitation. Possible mitral stenosis. - There is mild to moderate tricuspid valve regurgitation. - Mild pulmonary hypertension is present. Findings Procedure Information Contrast agent, definity, is being given per protocol without apparent complications. The quality of the study was technically difficult. The study quality is limited by the patients inability to tolerate the test. Left Ventricle Normal left ventricular cavity size. There is normal left ventricular wall thickness. There is paradoxical septal motion consistent with post-operative status. Diastolic function is indeterminate on the basis of available data. LVEF difficult to assess even with contrast. Probably in the normal range. No overt wall motion abnormalities. Right Ventricle The right ventricle was not well visualized. There is mildly decreased right ventricular systolic function. Atria The left atrium is severely dilated. The right atrium is normal in size. Aortic Valve There is moderate calcification of the aortic valve. There is moderate aortic valve stenosis. There is no aortic valve regurgitation. Dimensionless index 0.33. Mitral Valve There is severe mitral annular calcification. There is mild to moderate mitral valve regurgitation. Possible mitral stenosis. Pulmonic Valve The pulmonic valve is likely normal. Tricuspid Valve Normal tricuspid valve structure. There is mild to moderate tricuspid valve regurgitation. Mild pulmonary hypertension is present. Great Vessels The asc aorta is normal in size. Venous The inferior vena cava was not well visualized. Pericardium/Pleural There is no evidence of pericardial effusion. Prior Study Comparison No significant change compared to prior study dated: 11/19/2022. Measurements 2D Linear Measurements IVSd: 0.74 0.6-0.9/0.6-1.0 cm LVIDd: 4.08 3.9-5.3/4.2-5.9 cm LVIDd Index: 2.28 2.4-3.2/2.2-3.1 cm/m2 LVIDs: 3.23 2.0-3.6 cm LVPWd: 0.76 0.7-1.1 cm LA Diam: 4.80 2.7-3.8/3.0-4.0 cm LAIDs Index: 2.68 1.5-2.3 cm/m2 LV Mass: 109.86 67-162/88-224 g LV Mass Index: 61.38 43-95/49-115 g/m2 LVOT Diam: 2.10 3.0+(-)1.3 cm 2D Systolic Function EF 2C: 73.50 >55% Mitral Valve MV VTI: 0.38 MV Pk Shon: 2.13 MV Mn Shon: 1.17 MV Pk Grad: 18.00 MV Mn Grad: 7.00 MV Pk E: 2.00 MV Decel Time: 197.00 E'Lateral: 5.48 E/E' Lat: 36.50 MVA Continuity: 1.09 MR VTI: 1.32 Aortic Valve AoV Pk Shon: 1.92 AoV Mn Shon: 1.27 AoV VTI: 0.35 AoV Pk Grad: 15.00 Aov Mn Grad: 8.00 BASSAM Cont.VTI: 1.19 LVOT LVOT Pk Shon: 0.63 LVOT Mn Shon: 0.46 LVOT VTI: 0.12 LVOT Pk Grad: 2.00 LVOT Mn Grad: 1.00 LVOT Diam: 2.10 LVOT Area: 3.46 Diastolic Function MV Pk E: 2.00 E' Laterial: 5.48 E/E' Lat: 36.50 Right Ventricle TVS' Shon: 7.43 Tricuspid Valve TR Pk Shon: 3.24 TR Pk Grad: 42.00 RA Press: 3.00 RVSP: 45.00 Great Vessels Aorta Sinus of Valsalva: 2.90 2.0-3.5 cm Ao Asc: 2.60 2.1-3.4 cm Pulmonary Valve PV Pk Shon: 0.69 Peak PV Grad: 2.00 Updated in Other Vendor System with Status of Final Emory Hargrove MD electronically signed on 03/01/2025 4:40:13 PM with status of Final
--- NOTE | 2025-03-01 07:44 | MHC.EDTECH ---
clean and changed patient put a new purewick on patient I empty suction canister filled with urine I empty 1000 I also set patient up with breakfast tray nurse aware
[2025-03-01] MEDS: Furosemide 40 MG/4 ML VIAL IVPUSH ×2 (08:00→18:00)
[2025-03-01] MEDS: polyethylene glycoL 3350 17 GM POWD.PACK PO (08:02)
[2025-03-01] MEDS: Nystatin Cream 15 GM TUBE 1 APPL TOPICAL (10:11)
--- NOTE | 2025-03-01 10:29 | PHA.MEDREC ---
Pharmacy Consult ? Medication Reconciliation Pharmacy has completed the medication reconciliation. Spoke to patient to confirm medication list. Patient confirmed she takes calcium 500 mg once a day and omeprazole 20 mg daily in the morning. Last dose of medications was on Thursday02/27/25.
--- NOTE | 2025-03-01 12:41 | MHC.CM.PN ---
Addendum entered by Merlyn Santillan 03/01/25 12:51: Per H&P patient's dtr discussed with provider, moving in with pt., and would like home health services in place. DCP to include referral to VNA with SW, and [facility] if pt. goes directly home from hosp. Original Note: IMM 03/01/25, Pt lives with her son, PCP confirmed: Dr. Allen, HCP on file and confirmed: Johnathan. Pt. does not have any home health services. She said that she has been to [facility] before, could not remember where. For DME, she has a cane and a walker. DCP: TBD, either home with services or [facility]. CM to follow for DC needs.
--- NOTE | 2025-03-01 14:18 | HO.PM.IMPN ---
Subjective Subjective Date of Service: 03/02/25 Interval History: CHF exacerbation, systolic shannan Review of Systems sob with excersion no chest pain has constipation Review of Systems: Yes all other systems are reviewed and are negative Physical Exam Vital Signs: Vital Signs: Last Vital Signs Temp 98.0 F 03/01/25 13:18 Pulse 88 03/01/25 13:18 Resp 14 03/01/25 13:18 BP 130/53 L 03/01/25 13:18 Pulse Ox 96 03/01/25 13:18 O2 Del Method Room Air 03/01/25 13:18 BMI result Body Mass Index 27.8 Appearance: Alert.? Oriented X3.? cvs: [id number], [id number]. res: clear to auscultation ,no rhonchii or wheezing abd: soft ,nd ,nt, bs present. ext pulses present , no cyanosis neuro: axo3 , nonfocal. Objective Data Active Medications Acetaminophen (Acetaminophen 325 Mg Tablet) 650 mg PO Q6H PRN PRN Reason: Pain, Mild 1-3,fever,headache Albuterol/Ipratropium (Albuterol/Iprat 2.5/0.5mg 3 Ml Ampul.Neb) 3 ml INHALE Q4H PRN PRN Reason: Shortness of Breath/Wheezing Apixaban (Apixaban 5 Mg Tablet) 5 mg PO BID [facility] Atorvastatin Calcium (Atorvastatin Calcium 40 Mg Tablet) 40 mg PO BEDTIME [facility] Benzonatate (Benzonatate 100 Mg Capsule) 100 mg PO TID PRN PRN Reason: Cough Last Admin: 03/01/25 00:19 Dose: 100 mg Documented By: YUDY Calcium Carbonate (Calcium Carbonate 750 Mg Tab.Chew) 750 mg PO Q4H PRN PRN Reason: Heartburn Calcium Carbonate (Calcium Oyster Shell Elemental 500 Mg Tablet) 500 mg PO DAILY [facility] Furosemide (Furosemide 40 Mg/4 Ml Vial) 40 mg IVPUSH BID@0900,1800 [facility]; Protocol Last Admin: 03/01/25 08:00 Dose: 40 mg Documented By: SHERIE Guaifenesin (Guaifenesin La 600 Mg Tab.Er.12h) 600 mg PO BID [facility] Last Admin: 03/01/25 08:00 Dose: 600 mg Documented By: SHERIE Magnesium Hydroxide (Milk Of Magnesia 30 Ml Oral.Susp) 30 ml PO DAILY PRN PRN Reason: Constipation Melatonin (Melatonin 3 Mg Tablet) 6 mg PO BEDTIME PRN PRN Reason: Insomnia Metoprolol Tartrate (Metoprolol Tartrate 25 Mg Tablet) 25 mg PO BID [facility]; Protocol Multivitamins/Vitamin C (Multivitamin Tablet) 1 tab PO DAILY [facility] Nystatin (Nystatin Cream 15 Gm Tube) 1 appl TOPICAL BID [facility]; Protocol Last Admin: 03/01/25 10:11 Dose: 1 appl Documented By: SHERIE Omeprazole (Omeprazole 20 Mg Capsule.Dr) 20 mg PO DAILY [facility] Ondansetron HCl (Ondansetron Hcl 4 Mg/2 Ml Vial) 4 mg IVPUSH Q8H PRN PRN Reason: Nausea and Vomiting Polyethylene Glycol (Polyethylene Glycol 3350 17 Gm Powd.Pack) 17 gm PO DAILY [facility] Last Admin: 03/01/25 08:02 Dose: 17 gm Documented By: SHERIE Senna (Sennosides 8.6 Mg Tablet) 17.2 mg PO BEDTIME [facility] Last Admin: 03/01/25 00:19 Dose: 17.2 mg Documented By: YUDY Sodium Chloride (0.9 % Sodium Chloride Flush 3 Ml Syringe) 3 ml IVFLUSH QSHIFT [facility] Last Admin: 03/01/25 08:02 Dose: 3 ml Documented By: SHERIE Labs 03/01/25 04:19 03/01/25 04:19 Labs: Laboratory Results - last 24 hr 02/28/25 03/01/25 15:56 04:19 MCV 90.3 88.9 MCH 30.3 30.5 MCHC 33.5 34.3 RDW 14.0 14.1 Plt Count 221 201 MPV 9.7 9.9 Immature Gran % (Auto) 0.4 0.3 Neut % (Auto) 75.0 H 73.5 H Lymph % (Auto) 10.9 L 10.7 L Wharton % (Auto) 10.1 11.7 H Eos % (Auto) 2.9 3.1 Baso % (Auto) 0.7 0.7 Lymph # (Auto) 0.8 L 0.8 L Wharton # (Auto) 0.8 0.8 Eos # (Auto) 0.2 0.2 Baso # (Auto) 0.1 0.1 Abs Immat Gran (auto) 0.03 0.02 Absolute Neuts (auto) 5.7 5.2 Absolute Nucleated RBC 0.000 0.000 Nucleated RBC % (auto) 0.0 0.0 Anion Gap 13 13 Estim Creat Clear Calc 25.7 31.5 Estimated GFR 30 38 Random Glucose 96 100 Calcium 9.3 D 8.9 Magnesium 2.2 Total Bilirubin 0.6 0.7 Direct Bilirubin 0.2 AST 28 27 ALT 11 10 Alkaline Phosphatase 112 103 B-Natriuretic Peptide 650 H Total Protein 7.6 7.3 Albumin 3.6 3.5 Influenza Type A (PCR) NEGATIVE Influenza Type B (PCR) NEGATIVE RSV RNA Qual (PCR) NEGATIVE SARS-CoV-2 RNA (RT-PCR) NEGATIVE Assessment and Plan (1) Acute exacerbation of chronic heart failure: Status: Acute Plan 84-year-old female with past medical history hypertension, persistent AFib on Eliquis, chronic kidney disease stage IIIB, severe mitral valve regurgitation, systolic heart failure EF 50-55%, CAD, CABG, cognitive deficits, peripheral arterial disease, hyperlipidemia, large hiatal hernia with GERD, Roger's esophagus, osteoarthritis, and chronic constipation with straining is being admitted for CHF exacerbation that prompted a very irritible cough that has since improved. The cough is non productive. No evidence of PNA on CXR. Pt will continue on IV lasix 40 BID for now and ECHO tomorrow as last echo was in 2021. Pt has known severe MR and follows with [facility]. CHF exacerbation, systolic i/o neg 900ml,has execersional dyspnea plan: moniter i/o,BNP ,ECHO Fluid restriciton of 1500 mls IV lasix 40 BID, diuresing well CHF education started with admission Consult Cardiology if needed SHANNAN on CKD 3B GFR 30 Cr CL 25.7 Strict I/Os Avoid hypotension, No NSAIDs BMP in AM, consult nephrology if needed Maceration of skin in gluteal fold and perinium area Wound care consult ordered Nystatin cream startred BID Incontinence care needed Persistent AFIB Eliquis and BB once MED REDC completed Rate controlled currently TSH and MG WNL Severe MVR Known since 2021, pt is not a surgical candidate due to age, hx of CABG per survey research manager Echo ordered for AM, last was in 2021 Large Hiatal Hernia with GERD, Roger's Esophagus Chronic, no issues with dysphagia, aspiration Continue omeprazole Self-care deficit Per pt's daughter, this has become more evident over the last 2 months Pt's mobility is overall declining, no falls have occurred so far Daughter is planning on moving in with pt, as brother is often away (pt lives in son's home) Pt does not have life line device. 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 Cognitive impairment Memory is poor overall, pt is interactive and has supportive family but likely cannot be alone any longer at home CM requested to review options with family Quality Stroke Does the patient have a stroke diagnosis?: No Reason for No Anti-thrombotic by Day Two: N/A - Med Ordered VTE Prior VTE?: No VTE Risk Level:: Medical - moderate - high VTE Device Contraindication: N/A - Device Ordered VTE Drug Contraindication: N/A - Med Ordered
[2025-03-01 15:51] LABS: Appearance Urine Hazy; Color Urine Yellow; Glucose Urine UA Negative (Negative); Leukocyte Esterase Urine Large (3+) (Negative); Nitrite Urine Negative (Negative); UMIC TRIGGER UA YES; Urine Blood Trace (Negative); Urine Ketones Negative (Negative); Urine Protein Negative (Neg-Trace)
[2025-03-01 15:58] LABS: Bacteria Urine 4+ (None Seen); Hyaline Casts Urine 0-2 /LPF (0-2); RBC Urine 0-2 /HPF (0-2); Squamous Epithelial Cell Urine 0-2 /HPF (0-2)
[2025-03-01] MEDS: Metoprolol Tartrate 25 MG TABLET PO (20:21)
[2025-03-01] MEDS: Apixaban 5 MG TABLET PO (20:21)
[2025-03-01] MEDS: Atorvastatin Calcium 40 MG TABLET PO (20:21)
[2025-03-02 03:13] VITALS: BP 115/56; PULSE 71; RESP 18; TEMP 36.4; O2SAT 92
[2025-03-02 07:52] VITALS: BP 134/69; PULSE 75; RESP 16; TEMP 36.8; O2SAT 95
[2025-03-02] MEDS: Calcium Oyster Shell Elemental 500 MG TABLET PO (09:16)
[2025-03-02] MEDS: guaiFENesin LA 600 MG TAB.ER.12H PO ×2 (09:16→20:17)
[2025-03-02] MEDS: Omeprazole 20 MG CAPSULE.DR PO (09:16)
[2025-03-02] MEDS: Apixaban 5 MG TABLET PO ×2 (09:16→20:17)
[2025-03-02] MEDS: Metoprolol Tartrate 25 MG TABLET PO ×2 (09:16→20:17)
[2025-03-02] MEDS: Furosemide 40 MG/4 ML VIAL IVPUSH (09:16)
[2025-03-02] MEDS: Multivitamin TABLET 1 TAB PO (09:16)
[2025-03-02] MEDS: 0.9 % Sodium Chloride Flush 3 ML SYRINGE IVFLUSH ×3 (09:17→20:26)
[2025-03-02] MEDS: Nystatin Cream 15 GM TUBE 1 APPL TOPICAL ×2 (10:37→20:20)
[2025-03-02 11:36] VITALS: BP 113/75; PULSE 81; RESP 18; TEMP 36.2; O2SAT 100
[2025-03-02] MEDS: Milk of Magnesia 30 ML ORAL.SUSP PO (11:42)
--- NOTE | 2025-03-02 13:40 | MHC.CM.PN ---
PT is recommending home with services and supervision; CM will follow.
[2025-03-02 15:20] VITALS: BP 123/56; PULSE 72; RESP 18; TEMP 36.8; O2SAT 94
--- NOTE | 2025-03-02 16:02 | MHC.CM.PN ---
CM and MD spoke with Daughter/Nicole over the phone and CM met with them at bedside, with Patient. Goal is home tomorrow with VNA; CM awaits a VNA acceptance. SYMONE has informed MD that the Patient's 2 Daughters are requesting to speak with him at bedside. CM will follow.
--- NOTE | 2025-03-02 16:14 | HO.PM.IMPN ---
Subjective Subjective Date of Service: 03/02/25 Interval History: chf Review of Systems sob seems improving passed bm Physical Exam Vital Signs: Vital Signs: Last Vital Signs Temp 98.2 F 03/02/25 15:20 Pulse 72 03/02/25 15:20 Resp 18 03/02/25 15:20 BP 123/56 L 03/02/25 15:20 Pulse Ox 94 03/02/25 15:20 O2 Del Method Room Air 03/02/25 15:20 BMI result Body Mass Index 27.8 Appearance: Alert.? Oriented X3.? cvs: rrr, [id number]. res: clear to auscultation ,no rhonchii or wheezing abd: soft ,nd ,nt, bs present. ext pulses present , no cyanosis neuro: axo3 , nonfocal. Objective Data Active Medications Acetaminophen (Acetaminophen 325 Mg Tablet) 650 mg PO Q6H PRN PRN Reason: Pain, Mild 1-3,fever,headache Albuterol/Ipratropium (Albuterol/Iprat 2.5/0.5mg 3 Ml Ampul.Neb) 3 ml INHALE Q4H PRN PRN Reason: Shortness of Breath/Wheezing Apixaban (Apixaban 5 Mg Tablet) 5 mg PO BID [facility] Last Admin: 03/02/25 09:16 Dose: 5 mg Documented By: YINKA Atorvastatin Calcium (Atorvastatin Calcium 40 Mg Tablet) 40 mg PO BEDTIME [facility] Last Admin: 03/01/25 20:21 Dose: 40 mg Documented By: ARTIE Benzonatate (Benzonatate 100 Mg Capsule) 100 mg PO TID PRN PRN Reason: Cough Last Admin: 03/01/25 00:19 Dose: 100 mg Documented By: LAFLAMC Calcium Carbonate (Calcium Carbonate 750 Mg Tab.Chew) 750 mg PO Q4H PRN PRN Reason: Heartburn Calcium Carbonate (Calcium Oyster Shell Elemental 500 Mg Tablet) 500 mg PO DAILY [facility] Last Admin: 03/02/25 09:16 Dose: 500 mg Documented By: YINKA Furosemide (Furosemide 40 Mg Tablet) 40 mg PO BID@0900,1800 [facility]; Protocol Guaifenesin (Guaifenesin La 600 Mg Tab.Er.12h) 600 mg PO BID [facility] Last Admin: 03/02/25 09:16 Dose: 600 mg Documented By: YINKA Magnesium Hydroxide (Milk Of Magnesia 30 Ml Oral.Susp) 30 ml PO DAILY PRN PRN Reason: Constipation Melatonin (Melatonin 3 Mg Tablet) 6 mg PO BEDTIME PRN PRN Reason: Insomnia Metoprolol Tartrate (Metoprolol Tartrate 25 Mg Tablet) 25 mg PO BID [facility]; Protocol Last Admin: 03/02/25 09:16 Dose: 25 mg Documented By: YINKA Multivitamins/Vitamin C (Multivitamin Tablet) 1 tab PO DAILY [facility] Last Admin: 03/02/25 09:16 Dose: 1 tab Documented By: YINKA Nystatin (Nystatin Cream 15 Gm Tube) 1 appl TOPICAL BID [facility]; Protocol Last Admin: 03/02/25 10:37 Dose: 1 appl Documented By: YINKA Omeprazole (Omeprazole 20 Mg Capsule.Dr) 20 mg PO DAILY [facility] Last Admin: 03/02/25 09:16 Dose: 20 mg Documented By: YINKA Ondansetron HCl (Ondansetron Hcl 4 Mg/2 Ml Vial) 4 mg IVPUSH Q8H PRN PRN Reason: Nausea and Vomiting Polyethylene Glycol (Polyethylene Glycol 3350 17 Gm Powd.Pack) 17 gm PO DAILY [facility] Last Admin: 03/02/25 09:22 Dose: Not Given Documented By: YNIKA Non-Admin Reason: Patient Refused Senna (Sennosides 8.6 Mg Tablet) 17.2 mg PO BEDTIME [facility] Last Admin: 03/01/25 20:28 Dose: 17.2 mg Documented By: ARTIE Sodium Chloride (0.9 % Sodium Chloride Flush 3 Ml Syringe) 3 ml IVFLUSH QSHIFT [facility] Last Admin: 03/02/25 09:17 Dose: 3 ml Documented By: YINKA Labs 03/01/25 04:19 03/01/25 04:19 Assessment and Plan (1) Acute exacerbation of chronic heart failure: Status: Acute Plan 84-year-old female with past medical history hypertension, persistent AFib on Eliquis, chronic kidney disease stage IIIB, severe mitral valve regurgitation, systolic heart failure EF 50-55%, CAD, CABG, cognitive deficits, peripheral arterial disease, hyperlipidemia, large hiatal hernia with GERD, Roger's esophagus, osteoarthritis, and chronic constipation with straining is being admitted for CHF exacerbation that prompted a very irritible cough that has since improved. The cough is non productive. No evidence of PNA on CXR. Pt will continue on IV lasix 40 BID for now and ECHO tomorrow as last echo was in 2021. Pt has known severe MR and follows with [facility]. CHF exacerbation, systolic i/o neg 900ml,has execersional dyspnea plan: moniter i/o,BNP ,ECHO Fluid restriciton of 1500 mls i/o neg 890 switch po lasix 40 BID, diuresing well CHF education started with admission SHANNAN on CKD 3B GFR 30 Cr CL 25.7 Strict I/Os Avoid hypotension, No NSAIDs cr seems near baseline Maceration of skin in gluteal fold and perinium area Wound care consult ordered Nystatin cream startred BID Incontinence care needed Persistent AFIB Eliquis and BB once MED REDC completed Rate controlled currently TSH and MG WNL Severe MVR Known since 2021, pt is not a surgical candidate due to age, hx of CABG per machine setter sheet metal Echo ordered for AM, last was in 2021 Large Hiatal Hernia with GERD, Roger's Esophagus Chronic, no issues with dysphagia, aspiration Continue omeprazole Cognitive impairment /generalized weak Per pt's daughter, this has become more evident over the last 2 months Pt's mobility is overall declining, no falls have occurred so far Daughter is planning on moving in with pt, as brother is often away (pt lives in son's home) Pt does not have life line device. Family is requesting help with obtaining in home EMERGENCY DEPARTMENT NURSE/Nursing care, life line device PT eval -need to get arranged home pt/vna Quality Stroke Does the patient have a stroke diagnosis?: No Reason for No Anti-thrombotic by Day Two: N/A - Med Ordered VTE Prior VTE?: No VTE Risk Level:: Medical - moderate - high VTE Device Contraindication: N/A - Device Ordered VTE Drug Contraindication: N/A - Med Ordered
[2025-03-02] MEDS: Furosemide 40 MG TABLET PO (16:35)
--- NOTE | 2025-03-02 17:28 | HO.WOUND ---
Wound Consult: Initial 84yr old?female admitted to [facility] on 03/01/25 - See progress notes and H&P for detailed history.? Wound consult placed for MASD to perianal area.? Patient agreeable to assessment and photo documentation.? Patient and daughter at bedside - reports baseline incontinence and MASD to perianal area. They report the skin to the perianal area is much improved since they started to use barrier creams at home. Coccyx - with in gluteal fold - red pink moist tissue remains intact and blanchable Intergluteal Etiology: ??MASD - IAD (Moisture Associated Skin Damage - Incontinence Associated Dermatitis) Wound Bed: red moist acattered macerated tissue mirrored irregular edges with in gluteal crease. Drainage / Odor: None Esthela wound: intact ? No Induration, Fluctuance or Warmth noted Pain: denies Goals of Treatment: ? Triad to protect from moisture and friction Recommendations: 1. Turn and Reposition every 2 hours and as needed for patient comfort.? Use pillows or wedges to support off loading positions. 2. Off Load all bony prominences with use of pillows and heel boots if needed.? Apply Preventative foams where needed. ? 3. Monitor for incontinence and moisture control, use barrier creams when needed for prevention and treatment. 4. Provide adequate and supplemental nutrition.? 5. Order low air loss mattress. 6. When applicable maintain blood glucose levels per Providers order. Intergluteal - Off Load Pressure with Q2 hr turns and use of pillows - Cleanse with PH balance spray or wipes, pat dry. ?Apply thin layer of Triad to wound bed - only pat and dab no scrub and rub when soiling occurs. Reapply thin layer PRN after each episode of incontinence. Discontinue Foam dressing as this is trapping moisture. Re-consult wound care Nurse for wound deterioration or wound changes.
[2025-03-02 19:22] VITALS: BP 115/58; PULSE 87; RESP 18; TEMP 36.7; O2SAT 95
[2025-03-02] MEDS: Atorvastatin Calcium 40 MG TABLET PO (20:17)
[2025-03-02] MEDS: Benzonatate 100 MG CAPSULE PO (20:17)
[2025-03-02 23:17] VITALS: BP 107/53; PULSE 76; RESP 20; TEMP 36.3; O2SAT 93
[2025-03-03] MEDS: Melatonin 3 MG TABLET 6 MG PO ×2 (00:56→23:32)
[2025-03-03 03:05] VITALS: BP 120/52; PULSE 74; RESP 20; TEMP 36.3; O2SAT 96
[2025-03-03 08:00] VITALS: BP 128/62; PULSE 74; RESP 20; TEMP 36.2; O2SAT 97
[2025-03-03] MEDS: Omeprazole 20 MG CAPSULE.DR PO (09:11)
[2025-03-03] MEDS: Metoprolol Tartrate 25 MG TABLET PO ×2 (09:11→20:47)
[2025-03-03] MEDS: Calcium Oyster Shell Elemental 500 MG TABLET PO (09:11)
[2025-03-03] MEDS: guaiFENesin LA 600 MG TAB.ER.12H PO (09:11)
[2025-03-03] MEDS: 0.9 % Sodium Chloride Flush 3 ML SYRINGE IVFLUSH (09:12)
[2025-03-03] MEDS: Apixaban 5 MG TABLET PO ×2 (09:12→20:46)
[2025-03-03] MEDS: Furosemide 40 MG TABLET PO ×2 (09:12→18:05)
[2025-03-03] MEDS: Multivitamin TABLET 1 TAB PO (09:12)
[2025-03-03] MEDS: polyethylene glycoL 3350 17 GM POWD.PACK PO (09:20)
[2025-03-03] MEDS: Nystatin Cream 15 GM TUBE 1 APPL TOPICAL ×2 (09:20→20:47)
--- NOTE | 2025-03-03 09:54 | P.DS_ITS ---
DS: Providers Provider Date of Service: 03/03/25 Date of admission: 03/01/25 11:19 Date of discharge: 03/03/25 Primary care physician: Edwin Allen MD Consults: 03/01/25 22:33 Consult to Wound Care Routine Reason for consultation: excoriation, MASD Attending physician on discharge: Elmer Carver Discharging clinician: Elmer Carver DS: Diagnosis Discharge Diagnosis (1) Acute exacerbation of chronic heart failure: Status: Acute DS: Summary Hospital Course Hospital Course: HPI:84-year-old female with past medical history hypertension, persistent AFib on Eliquis, chronic kidney disease stage IIIB, severe mitral valve regurgitation, systolic heart failure EF 50-55%, CAD, CABG, cognitive deficits, peripheral arterial disease, hyperlipidemia, large hiatal hernia with GERD, Roger's esophagus, osteoarthritis, and chronic constipation with straining presents to emergency room with complaints of severe shortness of breath with a persistent irritable cough that is nonproductive. Patient did not have fever, chills and did not require oxygen. Chest x-ray positive for interstitial markings in pulmonary reticular pattern no evidence of pneumonia. Patient responded well to IV Lasix. Remains on RA. All viral studies are negative. Patient currently denies any chest pain, shortness of breath at rest, abdominal pain, nausea, vomiting, diarrhea but reports persistent constipation often times with straining. Patient's daughter also present and reports that patient is at times incontinent and is currently wearing depends. Patient has been living with her son who is often not in the home setting and patient has often alone. Family has noted that patient has mobility issues have worsened and now patient requires 2 canes to ambulate to the bathroom. Patient often has accidents due to the amount of time she needs to ambulate to the restroom. Patient does present with maceration of the skin in the gluteal fold and the perineum area. No other open wounds found. Family is requesting help with finding in-home nursing care. Patient is currently [employer] eligible. Daughter is proposing to move in with patient in the brother's home so that patient will have somebody there . Patient will be evaluated by Physical therapy during this admission under observation only. Patient does follow with [facility]. Echo will be ordered as last echo was in 2021. Cardiology can be consulted if needed. Hospital course: 84-year-old female with past medical history hypertension, persistent AFib on Eliquis, chronic kidney disease stage IIIB, severe mitral valve regurgitation, systolic heart failure EF 50-55%, CAD, CABG, cognitive deficits, peripheral arterial disease, hyperlipidemia, large hiatal hernia with GERD, Roger's esophagus, osteoarthritis, and chronic constipation with straining is being admitted for CHF exacerbation: cxr:Mild prominence of the interstitial markings, No gross consolidation, pleural effusion or pneumothorax:Patient was started on IV Lasix, diuresed well seems to be improved ,respiratory status se ems to be at baseline. Patient was switched to p.o. Lasix. Monitor renal function electrolytes outpatient. CHF education given-CHF education given-if gains weight 2 lb or more in a week- will need outpatient Lasix dosing assessment with PCP. Consider Follow-up with cardiology outpatient. loose stools (2 days back): cdiff negative , improved with holding luxatives, prn nebs ,continue incentive spriometry,chest physiotherapy. intermittent cough with parainfluenza uri:cough improving -continue cough meds. SHANNAN on CKD: Seems to be improved to baseline creatinine is 1.3. Monitor renal function electrolytes outpatient. Constipation: Patient passing BM, no abdominal pain,please hold luxative and start in day or so if no loose stools. plan: continue home lasix. moniter renal function/electrolytes outpatient. hold luxative and start in day or so if no loose stools. CHF education given-CHF education given-if gains weight 2 lb or more in a week- will need outpatient Lasix dosing assessment with PCP. Consider Follow-up with cardiology outpatient. PT recomended rehab. Assessment plan coordination time spent 40 minute. Time Attestation Total time managing care of this patient today: 40 mintues. Discharge Coordination Time (in mins): 40min Quality: Safe Use of Opioids Does Pt have an Active Cancer Diagnosis on the Problem List?: No Quality: Stroke Does the patient have a stroke diagnosis?: No Physical Exam Vital Signs: Vital Signs: Last Vital Signs Temp 97.2 F 03/03/25 08:00 Pulse 74 03/03/25 08:00 Resp 20 03/03/25 08:00 BP 128/62 03/03/25 08:00 Pulse Ox 97 03/03/25 08:00 O2 Del Method Room Air 03/03/25 08:00 BMI result Body Mass Index 27.8 Appearance: Alert.? Oriented X3.? cvs: rrr, [id number]. res: clear to auscultation ,no rhonchii or wheezing abd: soft ,nd ,nt, bs present. ext pulses present , no cyanosis neuro: axo3 , nonfocal. DS: Data Imaging Chest x-ray: Radiologist's impression: ITS Impressions Chest X-Ray 02/28/25 15:14 IMPRESSION: Large volume hiatal hernia. Mild interstitial lung edema in the correct clinical settings. 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 Electronically signed by: Eduar Lu MD 02/28/2025 03:31 PM EDT RP Discharge Plan Discharge Anticipated Discharge Date/Time: 03/03/25 09:41 Patient Disposition: Home Health Service Discharge Diagnosis: CHF exacerbation,shannan on ckd ,parainfluenza uri Referrals: Po,Edwin Garcia MD [Primary Care Provider] - 1 Week Discharge Medications: New polyethylene glycol 3350 17 gram Powder In Packet 17 g PO DAILY PRN (Reason: constipation) Qty: 14 0RF nystatin 100,000 unit/gram Cream 1 appl topical BID Qty: 1 0RF Protocol: Apply to: Apply to: gluteal fold and affected area of perineum benzonatate 100 mg Capsule 100 mg PO TID PRN (Reason: Cough) Qty: 20 0RF loratadine 10 mg Tablet 5 mg PO DAILY Qty: 10 0RF guaifenesin [Mucinex] 600 mg Tablet Extended Release 12hr 600 mg PO BID Qty: 14 0RF ipratropium-albuterol 0.5 mg-3 mg(2.5 mg base)/3 mL Solution For Nebulization 3 ml inhalation Q4H PRN (Reason: sob) Qty: 1 0RF Continued metoprolol tartrate 25 mg tablet 25 mg PO BID 90 Days Qty: 180 3RF Eliquis 5 mg tablet 5 mg PO BID Qty: 180 3RF furosemide 40 mg tablet 40 mg PO BID@0900,1800 90 Days Qty: 180 0RF Protocol: Hold for SBP< HOLD for SBP < : 90 atorvastatin 40 mg tablet 40 mg PO BEDTIME Qty: 90 0RF lisinopril 5 mg tablet 5 mg PO DAILY Qty: 90 1RF calcium carbonate 500 mg calcium (1,250 mg) Tablet 500 mg PO DAILY omeprazole 20 mg capsule,delayed release(DR/EC) 20 mg PO DAILY multivitamin Tablet 1 tab PO DAILY Discharge Orders: Discharge Order (Routine); Ordered 03/06/25 Ordered By: Elmer Carver Diet: Advance to usual diet Activity on Discharge: As tolerated Stand Alone Forms: Patient Portal Discharge page Print Language: Ukrainian Other Ambulatory Orders: Basic Metabolic Panel (Routine) Timeframe: 1 Week Facility: [facility] - Location: Laboratory Ordered By: Elmer Carver Care Plan Goals: 84-year-old female with past medical history hypertension, persistent AFib on Eliquis, chronic kidney disease stage IIIB, severe mitral valve regurgitation, systolic heart failure EF 50-55%, CAD, CABG, cognitive deficits, peripheral arterial disease, hyperlipidemia, large hiatal hernia with GERD, Roger's esophagus, osteoarthritis, and chronic constipation with straining is being admitted for CHF exacerbation: Patient was started on IV Lasix, diuresed well seems to be improved ,respiratory status seems to be at baseline. Patient was switched to p.o. Lasix. Monitor renal function electrolytes outpatient. CHF education given-CHF education given-if gains weight 2 lb or more in a week- will need outpatient Lasix dosing assessment with PCP. Consider Follow-up with cardiology outpatient. SHANNAN on CKD: Seems to be improved to baseline creatinine is 1.3. Monitor renal function electrolytes outpatient. intermittent cough with parainfluenza uri:cough improving ,cxr negative - continue cough meds. Constipation: Patient passing BM, no abdominal pain, going home with [employer]. Health Concerns: As above. Plan of Treatment: As above. Assessment: As above. Patient Instructions: Heart Failure (DC), Constipation (DC), Parainfluenza (GEN)
--- NOTE | 2025-03-03 11:47 | MHC.CM.PN ---
Per ROUNDS discussion, Patient is medically cleared for dc to home today, with services; [facility] has accepted Patient (home PT & SN) and can SOC this weekend. CM spoke with Daughter/HCP/Aida @ listed # and informed her of the dc plan; CM has passed on Daughter's request to MD, that she would like to speak with him (concerned about her Mother's cough and wants to be sure Patient is ready to dc to home). CM will follow.Last IMM addressed on 03/01/2025.
--- NOTE | 2025-03-03 11:51 | P.F2F_ITS ---
Service Date Service Date: 03/03/25 Encounter Date of encounter: 03/03/25 Encounter: chf, constipation Reasons for Services Signs and symptoms assessed: Shortness of breath or chest pain or any new symptoms Reason for long-term: CV/CP assess and/or care, medication management and teach disease management Reason for physical therapy: home safety and mobility, therapeutic exercises, restore joint function, gait/transfer training, assess need for DME, ADL training, energy conservation and other MD Overseeing Care: Edwin Allen Homebound: Leaving the home is medically contraindicated at this time without the asist of a device and/or another person due th the listed conditions above and below. Reason homebound: weakness related to hospital stay Homebound supporting statement: patient is generalised weak post hospitlisation and need help with going to appointments and labs draws as well as PT.( need vna/pt) Certification: Based on the above findings, I certify that this patient is confined to the home and needs intermittent long-term care, physical therapy and/or speech therapy, or continues to need occupational therapy. The patient is under my care, and I have initiated the establishment of the plan of care. The patient will be followed by a physician who will periodically review the plan of care. Time Spent With Patient Time: Total time managing care of this patient today ____ minutes.
[2025-03-03 12:00] VITALS: BP 116/76; PULSE 80; RESP 18; TEMP 36.3; O2SAT 98
--- NOTE | 2025-03-03 12:02 | P.PNIM_ITS ---
Subjective Subjective Date of Service: 03/03/25 Interval History: chf Review of Systems sob and cough improving Physical Exam 2 Vital Signs: Vital Signs: Last Vital Signs Temp 97.2 F 03/03/25 08:00 Pulse 74 03/03/25 08:00 Resp 20 03/03/25 08:00 BP 128/62 03/03/25 08:00 Pulse Ox 97 03/03/25 08:00 O2 Del Method Room Air 03/03/25 08:00 BMI result Body Mass Index 27.8 Appearance: Alert.? Oriented X3.? cvs: rrr, [id number]. res: clear to auscultation ,no rhonchii or wheezing abd: soft ,nd ,nt, bs present. ext pulses present , no cyanosis neuro: axo3 , nonfocal. Objective Data Active Medications Acetaminophen (Acetaminophen 325 Mg Tablet) 650 mg PO Q6H PRN PRN Reason: Pain, Mild 1-3,fever,headache Albuterol/Ipratropium (Albuterol/Iprat 2.5/0.5mg 3 Ml Ampul.Neb) 3 ml INHALE Q4H PRN PRN Reason: Shortness of Breath/Wheezing Apixaban (Apixaban 5 Mg Tablet) 5 mg PO BID [facility] Last Admin: 03/03/25 09:12 Dose: 5 mg Documented By: MARK Atorvastatin Calcium (Atorvastatin Calcium 40 Mg Tablet) 40 mg PO BEDTIME [facility] Last Admin: 03/02/25 20:17 Dose: 40 mg Documented By: ARTIE Benzonatate (Benzonatate 100 Mg Capsule) 100 mg PO TID PRN PRN Reason: Cough Last Admin: 03/02/25 20:17 Dose: 100 mg Documented By: ARTIE Calcium Carbonate (Calcium Carbonate 750 Mg Tab.Chew) 750 mg PO Q4H PRN PRN Reason: Heartburn Calcium Carbonate (Calcium Oyster Shell Elemental 500 Mg Tablet) 500 mg PO DAILY [facility] Last Admin: 03/03/25 09:11 Dose: 500 mg Documented By: MARK Furosemide (Furosemide 40 Mg Tablet) 40 mg PO BID@0900,1800 [facility]; Protocol Last Admin: 03/03/25 09:12 Dose: 40 mg Documented By: MARK Guaifenesin (Guaifenesin 200 Mg/10 Ml 10 Ml Liquid) 10 ml PO Q6H PRN PRN Reason: Cough Magnesium Hydroxide (Milk Of Magnesia 30 Ml Oral.Susp) 30 ml PO DAILY PRN PRN Reason: Constipation Melatonin (Melatonin 3 Mg Tablet) 6 mg PO BEDTIME PRN PRN Reason: Insomnia Last Admin: 03/03/25 00:56 Dose: 6 mg Documented By: ARTIE Metoprolol Tartrate (Metoprolol Tartrate 25 Mg Tablet) 25 mg PO BID [facility]; Protocol Last Admin: 03/03/25 09:11 Dose: 25 mg Documented By: MARK Multivitamins/Vitamin C (Multivitamin Tablet) 1 tab PO DAILY [facility] Last Admin: 03/03/25 09:12 Dose: 1 tab Documented By: MARK Nystatin (Nystatin Cream 15 Gm Tube) 1 appl TOPICAL BID [facility]; Protocol Last Admin: 03/03/25 09:20 Dose: 1 appl Documented By: MARK Omeprazole (Omeprazole 20 Mg Capsule.Dr) 20 mg PO DAILY [facility] Last Admin: 03/03/25 09:11 Dose: 20 mg Documented By: MAKR Ondansetron HCl (Ondansetron Hcl 4 Mg/2 Ml Vial) 4 mg IVPUSH Q8H PRN PRN Reason: Nausea and Vomiting Polyethylene Glycol (Polyethylene Glycol 3350 17 Gm Powd.Pack) 17 gm PO DAILY [facility] Last Admin: 03/03/25 09:20 Dose: 17 gm Documented By: MARK Senna (Sennosides 8.6 Mg Tablet) 17.2 mg PO BEDTIME [facility] Last Admin: 03/02/25 20:17 Dose: Not Given Documented By: ARTIE Non-Admin Reason: Patient Refused Sodium Chloride (0.9 % Sodium Chloride Flush 3 Ml Syringe) 3 ml IVFLUSH QSHIFT [facility] Last Admin: 03/03/25 09:12 Dose: 3 ml Documented By: MARK Labs 03/01/25 04:19 03/01/25 04:19 Assessment and Plan (1) Acute exacerbation of chronic heart failure: Status: Acute Plan 84-year-old female with past medical history hypertension, persistent AFib on Eliquis, chronic kidney disease stage IIIB, severe mitral valve regurgitation, systolic heart failure EF 50-55%, CAD, CABG, cognitive deficits, peripheral arterial disease, hyperlipidemia, large hiatal hernia with GERD, Roger's esophagus, osteoarthritis, and chronic constipation with straining is being admitted for CHF exacerbation that prompted a very irritible cough that has since improved. The cough is non productive. No evidence of PNA on CXR. Pt will continue on IV lasix 40 BID for now and ECHO tomorrow as last echo was in 2021. Pt has known severe MR and follows with [facility]. CHF exacerbation, systolic i/o neg 900ml,has execersional dyspnea plan: moniter i/o,BNP ,ECHO Fluid restriciton of 1500 mls i/o neg 890 switch po lasix 40 BID, diuresing well CHF education started with admission SHANNAN on CKD 3B GFR 30 Cr CL 25.7 Strict I/Os Avoid hypotension, No NSAIDs cr seems near baseline Maceration of skin in gluteal fold and perinium area Wound care consult ordered Nystatin cream startred BID Incontinence care needed Persistent AFIB Eliquis and BB once MED REDC completed Rate controlled currently TSH and MG WNL Severe MVR Known since 2021, pt is not a surgical candidate due to age, hx of CABG per firer helper Echo ordered for AM, last was in 2021 Large Hiatal Hernia with GERD, Roger's Esophagus Chronic, no issues with dysphagia, aspiration Continue omeprazole Cognitive impairment /generalized weak Per pt's daughter, this has become more evident over the last 2 months Pt's mobility is overall declining, no falls have occurred so far Daughter is planning on moving in with pt, as brother is often away (pt lives in son's home) Pt does not have life line device. Family is requesting help with obtaining in home [employer]/Nursing care, life line device PT eval -arranged home pt/vna daughter said nobody is available to take care of her home today Quality Stroke Does the patient have a stroke diagnosis?: No Reason for No Anti-thrombotic by Day Two: N/A - Med Ordered VTE Prior VTE?: No VTE Risk Level:: Medical - moderate - high VTE Device Contraindication: N/A - Device Ordered VTE Drug Contraindication: N/A - Med Ordered
[2025-03-03] MEDS: guaiFENesin 200 MG/10 ML 10 ML LIQUID PO (12:35)
[2025-03-03 14:58] VITALS: BP 116/76; PULSE 80; O2SAT 98
[2025-03-03 15:25] VITALS: BP 111/52; PULSE 76; RESP 18; TEMP 36.2; O2SAT 97
[2025-03-03 20:00] VITALS: BP 118/51; PULSE 97; RESP 17; TEMP 37.2; O2SAT 95
[2025-03-03] MEDS: Atorvastatin Calcium 40 MG TABLET PO (20:46)
[2025-03-04] VITALS (7 sets, daily range): BP systolic 119–133; BP diastolic 50–74; PULSE 77–97; RESP 16–20; TEMP 36.4–37.1; O2SAT 94–100; BMI 26.6
[2025-03-04] MEDS: Metoprolol Tartrate 25 MG TABLET PO ×2 (08:29→20:47)
[2025-03-04] MEDS: Furosemide 40 MG TABLET PO (08:30)
[2025-03-04] MEDS: Omeprazole 20 MG CAPSULE.DR PO (08:30)
[2025-03-04] MEDS: Multivitamin TABLET 1 TAB PO (08:30)
[2025-03-04] MEDS: Calcium Oyster Shell Elemental 500 MG TABLET PO (08:30)
[2025-03-04] MEDS: Apixaban 5 MG TABLET PO ×2 (08:31→20:48)
[2025-03-04] MEDS: Benzonatate 100 MG CAPSULE PO ×3 (08:37→20:47)
[2025-03-04] MEDS: guaiFENesin 200 MG/10 ML 10 ML LIQUID PO (08:37)
--- NOTE | 2025-03-04 10:22 | MHC.CM.PN ---
Addendum entered by Cindy Perkins 03/04/25 13:12: This CM met with pts 4 children, (including HCP Aida) present at hospital at their request. They are in agreement with their mother going to rehab, they accept bed offer [facility], insurance auth is now pending. Original Note: This CM met with pt to discuss discharge plan, pt states she can't go home and thinks she needs rehab, pt would like this CM to speak with her daughter about it. This CM called and spoke with pts daughter/HCP Aida, she agrees that her mother would benefit from STR. Aida states [facility], or [facility] are the top choices. Referral sent in [facility], awaiting bed offer. Hospitalist updated.
--- NOTE | 2025-03-04 11:51 | HO.PM.IMPN ---
Subjective Subjective Date of Service: 03/04/25 Interval History: generalised weak loose stool episodes per staff ( patient also on luxatives) no abd pain or fever Review of Systems Review of Systems: Yes all other systems are reviewed and are negative Physical Exam Vital Signs: Vital Signs: Last Vital Signs Temp 98.4 F 03/04/25 11:03 Pulse 77 03/04/25 11:03 Resp 18 03/04/25 11:03 BP 133/74 03/04/25 11:03 Pulse Ox 98 03/04/25 11:03 O2 Del Method Room Air 03/04/25 11:03 BMI result Body Mass Index 26.6 Appearance:comfortable ? cvs: rrr, [id number]. res: clear to auscultation ,no rhonchii or wheezing abd: soft ,nd ,nt, bs present. ext pulses present , no cyanosis neuro: nonfocal. Objective Data Active Medications Acetaminophen (Acetaminophen 325 Mg Tablet) 650 mg PO Q6H PRN PRN Reason: Pain, Mild 1-3,fever,headache Albuterol/Ipratropium (Albuterol/Iprat 2.5/0.5mg 3 Ml Ampul.Neb) 3 ml INHALE Q4H PRN PRN Reason: Shortness of Breath/Wheezing Apixaban (Apixaban 5 Mg Tablet) 5 mg PO BID [facility] Last Admin: 03/04/25 08:31 Dose: 5 mg Documented By: MARK Atorvastatin Calcium (Atorvastatin Calcium 40 Mg Tablet) 40 mg PO BEDTIME [facility] Last Admin: 03/03/25 20:46 Dose: 40 mg Documented By: POTTSSU Benzonatate (Benzonatate 100 Mg Capsule) 100 mg PO TID PRN PRN Reason: Cough Last Admin: 03/04/25 08:37 Dose: 100 mg Documented By: MARK Calcium Carbonate (Calcium Carbonate 750 Mg Tab.Chew) 750 mg PO Q4H PRN PRN Reason: Heartburn Calcium Carbonate (Calcium Oyster Shell Elemental 500 Mg Tablet) 500 mg PO DAILY [facility] Last Admin: 03/04/25 08:30 Dose: 500 mg Documented By: MARK Furosemide (Furosemide 40 Mg Tablet) 40 mg PO BID@0900,1800 [facility]; Protocol Last Admin: 03/04/25 08:30 Dose: 40 mg Documented By: MARK Guaifenesin (Guaifenesin 200 Mg/10 Ml 10 Ml Liquid) 10 ml PO Q6H PRN PRN Reason: Cough Last Admin: 03/04/25 08:37 Dose: 10 ml Documented By: MARK Melatonin (Melatonin 3 Mg Tablet) 6 mg PO BEDTIME PRN PRN Reason: Insomnia Last Admin: 03/03/25 23:32 Dose: 6 mg Documented By: MIKE Metoprolol Tartrate (Metoprolol Tartrate 25 Mg Tablet) 25 mg PO BID [facility]; Protocol Last Admin: 03/04/25 08:29 Dose: 25 mg Documented By: MARK Multivitamins/Vitamin C (Multivitamin Tablet) 1 tab PO DAILY [facility] Last Admin: 03/04/25 08:30 Dose: 1 tab Documented By: MARK Nystatin (Nystatin Cream 15 Gm Tube) 1 appl TOPICAL BID [facility]; Protocol Last Admin: 03/03/25 20:47 Dose: 1 appl Documented By: MIKE Omeprazole (Omeprazole 20 Mg Capsule.Dr) 20 mg PO DAILY [facility] Last Admin: 03/04/25 08:30 Dose: 20 mg Documented By: MARK Ondansetron HCl (Ondansetron Hcl 4 Mg/2 Ml Vial) 4 mg IVPUSH Q8H PRN PRN Reason: Nausea and Vomiting Senna (Sennosides 8.6 Mg Tablet) 17.2 mg PO BEDTIME [facility] Last Admin: 03/03/25 20:54 Dose: Not Given Documented By: MIKE Non-Admin Reason: Patient Refused Sodium Chloride (0.9 % Sodium Chloride Flush 3 Ml Syringe) 3 ml IVFLUSH QSHIFT [facility] Last Admin: 03/04/25 08:31 Dose: Not Given Documented By: MARK Non-Admin Reason: No Access Labs 03/01/25 04:19 03/01/25 04:19 Assessment and Plan (1) Acute exacerbation of chronic heart failure: Status: Acute Plan 84-year-old female with past medical history hypertension, persistent AFib on Eliquis, chronic kidney disease stage IIIB, severe mitral valve regurgitation, systolic heart failure EF 50-55%, CAD, CABG, cognitive deficits, peripheral arterial disease, hyperlipidemia, large hiatal hernia with GERD, Roger's esophagus, osteoarthritis, and chronic constipation with straining is being admitted for CHF exacerbation that prompted a very irritible cough that has since improved. The cough is non productive. No evidence of PNA on CXR. Pt will continue on IV lasix 40 BID for now and ECHO tomorrow as last echo was in 2021. Pt has known severe MR and follows with [facility]. CHF exacerbation, systolic i/o neg 900ml,has execersional dyspnea plan: moniter i/o 1.4 liter negative ,BNP ,ECHO Fluid restriciton of 1500 mls i/o neg 890 hold lasix due to loose stools CHF education started with admission patient has intermittent cough(likely insetting chf) no sob eating ok cxr on admission- Mild interstitial lung edema check respiratory viral panel added cough medication, incentive spirometry,chest physiotherapy,nebs Loose stool episodes hold luxative and lasix Gi Panel,cdiff moniter SHANNAN on CKD 3B GFR 30 Cr CL 25.7 Strict I/Os Avoid hypotension, No NSAIDs cr seems near baseline Maceration of skin in gluteal fold and perinium area Wound care consult ordered Nystatin cream startred BID Incontinence care needed Persistent AFIB Eliquis and BB once MED REDC completed Rate controlled currently TSH and MG WNL Severe MVR Known since 2021, pt is not a surgical candidate due to age, hx of CABG 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 Family is requesting help with obtaining in home [employer]/Nursing care, life line device awaiting rehab placement Quality Stroke Does the patient have a stroke diagnosis?: No Reason for No Anti-thrombotic by Day Two: N/A - Med Ordered VTE Prior VTE?: No VTE Risk Level:: Medical - moderate - high VTE Device Contraindication: N/A - Device Ordered VTE Drug Contraindication: N/A - Med Ordered
[2025-03-04] MEDS: Nystatin Cream 15 GM TUBE 1 APPL TOPICAL ×2 (14:00→20:48)
[2025-03-04 14:35] LABS: CDiff Gene PCR NEGATIVE (Negative)
--- NOTE | 2025-03-04 15:06 | W.MHC.ACPN ---
Advanced Care Planning Note Advanced Care Planning Note Time spent (in minutes): 30 Narrative: 84-year-old female with past medical history hypertension, persistent AFib on Eliquis, chronic kidney disease stage IIIB, severe mitral valve regurgitation, systolic heart failure EF 50-55%, CAD, CABG, cognitive deficits, peripheral arterial disease, hyperlipidemia, large hiatal hernia with GERD, Roger's esophagus, osteoarthritis, and chronic constipation : Patient was admitted for CHF exacerbation-improving with IV diuretic therapies. Family requested goal of care discussion considering multiple comorbidities cognitive issues as well as generalized weak: Discussed with the family in detail and as per the patient wishes MOLST form is completed: Patient is DNR DNI. Problems Discussed (1) Acute exacerbation of chronic heart failure:
[2025-03-04] MEDS: Albuterol/Iprat 2.5/0.5MG 3 ML AMPUL.NEB INHALE (15:17)
[2025-03-04] MEDS: Atorvastatin Calcium 40 MG TABLET PO (20:47)
--- NOTE | 2025-03-04 22:52 | PC.RT ---
Pt requested to not be woken up for breathing treatments
[2025-03-05] VITALS (7 sets, daily range): BP systolic 104–129; BP diastolic 47–60; PULSE 65–78; RESP 16–20; TEMP 36.1–37.6; O2SAT 92–98
[2025-03-05] MEDS: Multivitamin TABLET 1 TAB PO (09:35)
[2025-03-05] MEDS: Omeprazole 20 MG CAPSULE.DR PO (09:35)
[2025-03-05] MEDS: Metoprolol Tartrate 25 MG TABLET PO ×2 (09:35→19:56)
[2025-03-05] MEDS: Calcium Oyster Shell Elemental 500 MG TABLET PO (09:35)
[2025-03-05] MEDS: Apixaban 5 MG TABLET PO ×2 (09:35→19:56)
[2025-03-05] MEDS: Loratadine 10 MG TABLET 5 MG PO (09:35)
[2025-03-05] MEDS: Benzonatate 100 MG CAPSULE PO ×3 (09:36→19:56)
[2025-03-05] MEDS: guaiFEN/Codeine SF 200/20/10ML 10 ML LIQUID 5 ML PO (09:36)
--- NOTE | 2025-03-05 11:58 | HO.PM.IMPN ---
Subjective Subjective Date of Service: 03/05/25 Interval History: diarrhae Review of Systems Diarrhea improving Checked with the staff also- Minimal cough today Physical Exam Vital Signs: Vital Signs: Last Vital Signs Temp 98.4 F 03/05/25 11:14 Pulse 72 03/05/25 11:14 Resp 18 03/05/25 11:14 BP 118/56 L 03/05/25 11:14 Pulse Ox 94 03/05/25 11:14 O2 Del Method Room Air 03/05/25 11:14 BMI result Body Mass Index 26.6 Appearance:comfortable ? cvs: rrr, [id number]. res: clear to auscultation ,no rhonchii or wheezing abd: soft ,nd ,nt, bs present. ext pulses present , no cyanosis neuro: nonfocal. Objective Data Active Medications Acetaminophen (Acetaminophen 325 Mg Tablet) 650 mg PO Q6H PRN PRN Reason: Pain, Mild 1-3,fever,headache Albuterol/Ipratropium (Albuterol/Iprat 2.5/0.5mg 3 Ml Ampul.Neb) 3 ml INHALE Q4H [facility] Last Admin: 03/05/25 11:08 Dose: Not Given Documented By: MERRICK Non-Admin Reason: Patient Refused Apixaban (Apixaban 5 Mg Tablet) 5 mg PO BID [facility] Last Admin: 03/05/25 09:35 Dose: 5 mg Documented By: YINKA Atorvastatin Calcium (Atorvastatin Calcium 40 Mg Tablet) 40 mg PO BEDTIME [facility] Last Admin: 03/04/25 20:47 Dose: 40 mg Documented By: MIKE Benzonatate (Benzonatate 100 Mg Capsule) 100 mg PO TID [facility] Last Admin: 03/05/25 09:36 Dose: 100 mg Documented By: YINKA Calcium Carbonate (Calcium Carbonate 750 Mg Tab.Chew) 750 mg PO Q4H PRN PRN Reason: Heartburn Calcium Carbonate (Calcium Oyster Shell Elemental 500 Mg Tablet) 500 mg PO DAILY [facility] Last Admin: 03/05/25 09:35 Dose: 500 mg Documented By: YINKA Furosemide (Furosemide 40 Mg Tablet) 40 mg PO BID@0900,1800 [facility]; Protocol Last Admin: 03/04/25 08:30 Dose: 40 mg Documented By: MARK Guaifenesin (Guaifenesin La 600 Mg Tab.Er.12h) 600 mg PO BID PRN PRN Reason: Cough Loratadine (Loratadine 10 Mg Tablet) 5 mg PO DAILY [facility] Last Admin: 03/05/25 09:35 Dose: 5 mg Documented By: YINKA Melatonin (Melatonin 3 Mg Tablet) 6 mg PO BEDTIME PRN PRN Reason: Insomnia Last Admin: 03/03/25 23:32 Dose: 6 mg Documented By: MIKE Metoprolol Tartrate (Metoprolol Tartrate 25 Mg Tablet) 25 mg PO BID [facility]; Protocol Last Admin: 03/05/25 09:35 Dose: 25 mg Documented By: YINKA Multivitamins/Vitamin C (Multivitamin Tablet) 1 tab PO DAILY [facility] Last Admin: 03/05/25 09:35 Dose: 1 tab Documented By: YINKA Nystatin (Nystatin Cream 15 Gm Tube) 1 appl TOPICAL BID [facility]; Protocol Last Admin: 03/05/25 10:05 Dose: Not Given Documented By: YINKA Non-Admin Reason: Previously Administered Omeprazole (Omeprazole 20 Mg Capsule.Dr) 20 mg PO DAILY@06 [facility] Ondansetron HCl (Ondansetron Hcl 4 Mg/2 Ml Vial) 4 mg IVPUSH Q8H PRN PRN Reason: Nausea and Vomiting Senna (Sennosides 8.6 Mg Tablet) 17.2 mg PO BEDTIME [facility] Last Admin: 03/04/25 20:58 Dose: Not Given Documented By: MIKE Non-Admin Reason: Patient Refused Sodium Chloride (0.9 % Sodium Chloride Flush 3 Ml Syringe) 3 ml IVFLUSH QSHIFT [facility] Last Admin: 03/05/25 09:36 Dose: Not Given Documented By: YINKA Non-Admin Reason: No Access Labs 03/01/25 04:19 03/01/25 04:19 Labs: Laboratory Results - last 24 hr 03/04/25 13:00 Stl C. cayetanensis PCR Cancelled Stool Rotavirus A PCR Cancelled Stl Adenov F 40/41 PCR Cancelled Stool Astrovirus (PCR) Cancelled Stool Campylobacter PCR Cancelled Stool Cryptosporidium PCR Cancelled Stl Sh Tox Pr E STEC PCR Cancelled Stool E coli O157 PCR Cancelled Stl Enterotoxigenic E PCR Cancelled Stool EPEC (PCR) Cancelled Stool EAEC (PCR) Cancelled Stl E. histolytica PCR Cancelled Stool Giardia Lamblia PCR Cancelled Stl P. shigelloides PCR Cancelled Stool Salmonella PCR Cancelled Stool Sapovirus (PCR) Cancelled Stl Shigella/EIEC PCR Cancelled St Y.enterocolitica PCR Cancelled Stool Vibrio (PCR) Cancelled Stl Vibrio cholerae PCR Cancelled Stl Norovirus GI/GII PCR Cancelled C. difficile Tox B Gene NEGATIVE Assessment and Plan (1) Acute exacerbation of chronic heart failure: Status: Acute Plan 84-year-old female with past medical history hypertension, persistent AFib on Eliquis, chronic kidney disease stage IIIB, severe mitral valve regurgitation, systolic heart failure EF 50-55%, CAD, CABG, cognitive deficits, peripheral arterial disease, hyperlipidemia, large hiatal hernia with GERD, Roger's esophagus, osteoarthritis, and chronic constipation with straining is being admitted for CHF exacerbation that prompted a very irritible cough that has since improved. The cough is non productive. No evidence of PNA on CXR. Pt will continue on IV lasix 40 BID for now and ECHO tomorrow as last echo was in 2021. Pt has known severe MR and follows with [facility]. CHF exacerbation, systolic i/o neg 900ml,has execersional dyspnea plan: moniter i/o 1.4 liter negative ,BNP ,ECHO Fluid restriciton of 1500 mls i/o neg 1.2 liter resume lasix since diarrhae improved. CHF education started with admission patient has intermittent cough(likely insetting chf) no sob cough also improved significantly cxr on admission- Mild interstitial lung edema check respiratory viral panel added cough medication, incentive spirometry,chest physiotherapy,nebs Loose stool episodes hold luxative cdiff negative moniter Ua : has aymptomatic pyuria and bacteruria. 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
[2025-03-05 15:05] LABS: Adenovirus PCR Not Detected (Not Detect.); Bordetella parapertussis PCR Not Detected (Not Detect.); Bordetella pertussis PCR Not Detected (Not Detect.); Chlamydia pneumoniae PCR Not Detected (Not Detect.); Coronavirus 229E PCR Not Detected (Not Detect.); Coronavirus HKU1 PCR Not Detected (Not Detect.); Coronavirus NL63 PCR Not Detected (Not Detect.); Coronavirus OC43 PCR Not Detected (Not Detect.); Human metapneumovirus PCR Not Detected (Not Detect.); Influenza A PCR Not Detected (Not Detect.); Influenza B PCR Not Detected (Not Detect.); Mycoplasma pneumoniae PCR Not Detected (Not Detect.); Parainfluenza 1 PCR Not Detected (Not Detect.); Parainfluenza 2 PCR Not Detected (Not Detect.); Parainfluenza 3 PCR Detected (Not Detect.); Parainfluenza 4 PCR Not Detected (Not Detect.); RSV PCR Not Detected (Not Detect.); Rhino/Enterovirus PCR Not Detected (Not Detect.)
[2025-03-05 15:11] LABS: Influenza A H1 PCR Not Detected (Not Detect.); Influenza A H1-2009 PCR Not Detected (Not Detect.); Influenza A H3 PCR Not Detected (Not Detect.); SARS-CoV-2 PCR Not Detected (Not Detect.)
[2025-03-05] MEDS: Furosemide 40 MG TABLET PO (16:54)
[2025-03-05] MEDS: guaiFENesin LA 600 MG TAB.ER.12H PO (19:56)
[2025-03-05] MEDS: Atorvastatin Calcium 40 MG TABLET PO (19:56)
[2025-03-05] MEDS: Melatonin 3 MG TABLET 6 MG PO (19:56)
[2025-03-05] MEDS: Sennosides 8.6 MG TABLET 17.2 MG PO (19:58)
[2025-03-06] VITALS (7 sets, daily range): BP systolic 108–123; BP diastolic 51–68; PULSE 67–93; RESP 18; TEMP 36.2–36.9; O2SAT 92–98
[2025-03-06] MEDS: Omeprazole 20 MG CAPSULE.DR PO (06:19)
[2025-03-06] MEDS: guaiFENesin LA 600 MG TAB.ER.12H PO ×2 (10:14→22:51)
[2025-03-06] MEDS: Furosemide 40 MG TABLET PO ×2 (10:14→16:54)
[2025-03-06] MEDS: Apixaban 5 MG TABLET PO ×2 (10:15→22:51)
[2025-03-06] MEDS: Loratadine 10 MG TABLET 5 MG PO (10:15)
[2025-03-06] MEDS: Metoprolol Tartrate 25 MG TABLET PO ×2 (10:15→22:51)
[2025-03-06] MEDS: Benzonatate 100 MG CAPSULE PO ×3 (10:15→22:51)
[2025-03-06] MEDS: Multivitamin TABLET 1 TAB PO (10:15)
[2025-03-06] MEDS: Calcium Oyster Shell Elemental 500 MG TABLET PO (10:15)
--- NOTE | 2025-03-06 10:30 | P.PNIM_ITS ---
Subjective Subjective Date of Service: 03/06/25 Interval History: parainfluenza uri Review of Systems sob seems improving cough also improving Physical Exam 2 Vital Signs: Vital Signs: Last Vital Signs Temp 97.9 F 03/06/25 08:00 Pulse 72 03/06/25 08:00 Resp 18 03/06/25 08:00 BP 108/53 L 03/06/25 08:00 Pulse Ox 94 03/06/25 08:00 O2 Del Method Room Air 03/06/25 08:00 BMI result Body Mass Index 26.6 Appearance:comfortable ? cvs: rrr, [id number]. res: clear to auscultation ,no rhonchii or wheezing abd: soft ,nd ,nt, bs present. ext pulses present , no cyanosis neuro: nonfocal. Objective Data Active Medications Acetaminophen (Acetaminophen 325 Mg Tablet) 650 mg PO Q6H PRN PRN Reason: Pain, Mild 1-3,fever,headache Albuterol/Ipratropium (Albuterol/Iprat 2.5/0.5mg 3 Ml Ampul.Neb) 3 ml INHALE Q4H [facility] Last Admin: 03/06/25 05:37 Dose: Not Given Documented By: ARIANNA Non-Admin Reason: Patient Asleep Apixaban (Apixaban 5 Mg Tablet) 5 mg PO BID [facility] Last Admin: 03/05/25 19:56 Dose: 5 mg Documented By: IZZY Atorvastatin Calcium (Atorvastatin Calcium 40 Mg Tablet) 40 mg PO BEDTIME [facility] Last Admin: 03/05/25 19:56 Dose: 40 mg Documented By: IZZY Benzonatate (Benzonatate 100 Mg Capsule) 100 mg PO TID [facility] Last Admin: 03/05/25 19:56 Dose: 100 mg Documented By: IZZY Calcium Carbonate (Calcium Carbonate 750 Mg Tab.Chew) 750 mg PO Q4H PRN PRN Reason: Heartburn Calcium Carbonate (Calcium Oyster Shell Elemental 500 Mg Tablet) 500 mg PO DAILY [facility] Last Admin: 03/05/25 09:35 Dose: 500 mg Documented By: YINKA Furosemide (Furosemide 40 Mg Tablet) 40 mg PO BID@0900,1800 [facility]; Protocol Last Admin: 03/06/25 10:14 Dose: 40 mg Documented By: YINKA Guaifenesin (Guaifenesin La 600 Mg Tab.Er.12h) 600 mg PO BID [facility] Last Admin: 03/06/25 10:14 Dose: 600 mg Documented By: YINKA Guaifenesin/Codeine Phosphate (Guaifen/Codeine Sf 200/20/10ml 10 Ml Liquid) 5 ml PO Q6H PRN PRN Reason: Cough Loratadine (Loratadine 10 Mg Tablet) 5 mg PO DAILY [facility] Last Admin: 03/05/25 09:35 Dose: 5 mg Documented By: YINKA Melatonin (Melatonin 3 Mg Tablet) 6 mg PO BEDTIME PRN PRN Reason: Insomnia Last Admin: 03/05/25 19:56 Dose: 6 mg Documented By: IZZY Metoprolol Tartrate (Metoprolol Tartrate 25 Mg Tablet) 25 mg PO BID [facility]; Protocol Last Admin: 03/05/25 19:56 Dose: 25 mg Documented By: IZZY Multivitamins/Vitamin C (Multivitamin Tablet) 1 tab PO DAILY [facility] Last Admin: 03/05/25 09:35 Dose: 1 tab Documented By: YINKA Nystatin (Nystatin Cream 15 Gm Tube) 1 appl TOPICAL BID [facility]; Protocol Last Admin: 03/05/25 20:15 Dose: Not Given Documented By: IZZY Non-Admin Reason: Med Not Available Omeprazole (Omeprazole 20 Mg Capsule.Dr) 20 mg PO DAILY@0630 [facility] Last Admin: 03/06/25 06:19 Dose: 20 mg Documented By: IZZY Ondansetron HCl (Ondansetron Hcl 4 Mg/2 Ml Vial) 4 mg IVPUSH Q8H PRN PRN Reason: Nausea and Vomiting Senna (Sennosides 8.6 Mg Tablet) 17.2 mg PO BEDTIME [facility] Last Admin: 03/05/25 19:58 Dose: 17.2 mg Documented By: IZZY Sodium Chloride (0.9 % Sodium Chloride Flush 3 Ml Syringe) 3 ml IVFLUSH QSHIFT [facility] Last Admin: 03/05/25 20:05 Dose: Not Given Documented By: IZZY Non-Admin Reason: No Access Labs 03/01/25 04:19 03/01/25 04:19 Labs: Laboratory Results - last 24 hr 03/05/25 14:03 Respiratory Panel Bridges See Note Adenovirus (Rapid PCR) Not Detected B.pert (TEM-PCR) Not Detected B.parapertussis DNA PCR Not Detected C. pneumoniae DNA (PCR) Not Detected Coronavirus OC43 (PCR) Not Detected Coronavirus HKU1 (PCR) Not Detected Coronavirus 229E (PCR) Not Detected Coronavirus NL63 (PCR) Not Detected Human Metapneumovir PCR Not Detected Influenza A (RT-PCR) Not Detected Influenza A (H1) PCR Not Detected Influ A (H1/09) PCR Not Detected Influenza A (H3) PCR Not Detected Influenza B (RT-PCR) Not Detected M. pneumoniae (PCR) Not Detected Parainfluenza 1 (PCR) Not Detected Parainfluenza 2 (PCR) Not Detected Parainfluenza 3 (PCR) Detected A Parainfluenza 4 (PCR) Not Detected RSV (PCR) Not Detected Entero/Rhino (PCR) Not Detected SARS-CoV-2 RNA (RT-PCR) Not Detected Assessment and Plan Plan 84-year-old female with past medical history hypertension, persistent AFib on Eliquis, chronic kidney disease stage IIIB, severe mitral valve regurgitation, systolic heart failure EF 50-55%, CAD, CABG, cognitive deficits, peripheral arterial disease, hyperlipidemia, large hiatal hernia with GERD, Roger's esophagus, osteoarthritis, and chronic constipation with straining is being admitted for CHF exacerbation that prompted a very irritible cough that has since improved. The cough is non productive. No evidence of PNA on CXR. Pt will continue on IV lasix 40 BID for now and ECHO tomorrow as last echo was in 2021. Pt has known severe MR and follows with [facility]. CHF exacerbation, systolic i/o neg 900ml,has execersional dyspnea plan: moniter i/o 1.4 liter negative ,BNP ,ECHO Fluid restriciton of 1500 mls i/o neg 1.2 liter resume lasix since diarrhae improved. CHF education started with admission patient has intermittent coughmultifcatorial(viral uri ,chf) no sob cough also improved significantly cxr on admission- Mild interstitial lung edema respiratory viral panel positive for parainfluenza continue cough medication, incentive spirometry,chest physiotherapy,nebs Loose stool episodes hold luxative cdiff negative moniter Ua : has aymptomatic pyuria and bacteruria. SHANNAN on CKD 3B GFR 30 Cr CL 25.7 Strict I/Os Avoid hypotension, No NSAIDs cr seems near baseline Maceration of skin in gluteal fold and perinium area Wound care consult ordered Nystatin cream startred BID Incontinence care needed Persistent AFIB Eliquis and BB once MED [facility] completed Rate controlled currently TSH and MG WNL Severe MVR Known since 2021, pt is not a surgical candidate due to age, hx of CABG per wire drawing die maker Echo ordered for AM, last was in 2021 Large Hiatal Hernia with GERD, Roger's Esophagus Chronic, no issues with dysphagia, aspiration Continue omeprazole Cognitive impairment /generalized weak Per pt's daughter, this has become more evident over the last 2 months Pt's mobility is overall declining, no falls have occurred so far Daughter is planning on moving in with pt, as brother is often away (pt lives in son's home) Pt does not have life line device. Family is requesting help with obtaining in home PROJECT INTERN/Nursing care, life line device awaiting rehab placement Quality Stroke Does the patient have a stroke diagnosis?: No Reason for No Anti-thrombotic by Day Two: N/A - Med Ordered VTE Prior VTE?: No VTE Risk Level:: Medical - moderate - high VTE Device Contraindication: N/A - Device Ordered VTE Drug Contraindication: N/A - Med Ordered
[2025-03-06] MEDS: Nystatin Cream 15 GM TUBE 1 APPL TOPICAL ×2 (10:31→22:52)
--- NOTE | 2025-03-06 12:42 | P.PNIM_ITS ---
Subjective Subjective Date of Service: 03/06/25 Interval History: parainfluenza Review of Systems cough improving no sob Physical Exam 2 Vital Signs: Vital Signs: Last Vital Signs Temp 98.5 F 03/06/25 11:48 Pulse 68 03/06/25 11:48 Resp 18 03/06/25 11:48 BP 111/51 L 03/06/25 11:48 Pulse Ox 94 03/06/25 11:48 O2 Del Method Room Air 03/06/25 11:48 BMI result Body Mass Index 26.6 Appearance:comfortable ? cvs: rrr, [id number]. res: clear to auscultation ,no rhonchii or wheezing abd: soft ,nd ,nt, bs present. ext pulses present , no cyanosis neuro: nonfocal. Objective Data Active Medications Acetaminophen (Acetaminophen 325 Mg Tablet) 650 mg PO Q6H PRN PRN Reason: Pain, Mild 1-3,fever,headache Albuterol/Ipratropium (Albuterol/Iprat 2.5/0.5mg 3 Ml Ampul.Neb) 3 ml INHALE Q4H [facility] Last Admin: 03/06/25 11:18 Dose: Not Given Documented By: MERRICK Non-Admin Reason: Patient Refused Apixaban (Apixaban 5 Mg Tablet) 5 mg PO BID [facility] Last Admin: 03/06/25 10:15 Dose: 5 mg Documented By: YINKA Atorvastatin Calcium (Atorvastatin Calcium 40 Mg Tablet) 40 mg PO BEDTIME [facility] Last Admin: 03/05/25 19:56 Dose: 40 mg Documented By: IZZY Benzonatate (Benzonatate 100 Mg Capsule) 100 mg PO TID [facility] Last Admin: 03/06/25 10:15 Dose: 100 mg Documented By: YINKA Calcium Carbonate (Calcium Carbonate 750 Mg Tab.Chew) 750 mg PO Q4H PRN PRN Reason: Heartburn Calcium Carbonate (Calcium Oyster Shell Elemental 500 Mg Tablet) 500 mg PO DAILY [facility] Last Admin: 03/06/25 10:15 Dose: 500 mg Documented By: YINKA Furosemide (Furosemide 40 Mg Tablet) 40 mg PO BID@0900,1800 [facility]; Protocol Last Admin: 03/06/25 10:14 Dose: 40 mg Documented By: YINKA Guaifenesin (Guaifenesin La 600 Mg Tab.Er.12h) 600 mg PO BID [facility] Last Admin: 03/06/25 10:14 Dose: 600 mg Documented By: YINAK Guaifenesin/Codeine Phosphate (Guaifen/Codeine Sf 200/20/10ml 10 Ml Liquid) 5 ml PO Q6H PRN PRN Reason: Cough Loratadine (Loratadine 10 Mg Tablet) 5 mg PO DAILY [facility] Last Admin: 03/06/25 10:15 Dose: 5 mg Documented By: YINKA Melatonin (Melatonin 3 Mg Tablet) 6 mg PO BEDTIME PRN PRN Reason: Insomnia Last Admin: 03/05/25 19:56 Dose: 6 mg Documented By: IZZY Metoprolol Tartrate (Metoprolol Tartrate 25 Mg Tablet) 25 mg PO BID [facility]; Protocol Last Admin: 03/06/25 10:15 Dose: 25 mg Documented By: YINKA Multivitamins/Vitamin C (Multivitamin Tablet) 1 tab PO DAILY [facility] Last Admin: 03/06/25 10:15 Dose: 1 tab Documented By: YINKA Nystatin (Nystatin Cream 15 Gm Tube) 1 appl TOPICAL BID [facility]; Protocol Last Admin: 03/06/25 10:31 Dose: 1 appl Documented By: YINKA Omeprazole (Omeprazole 20 Mg Capsule.) 20 mg PO DAILY@0630 [facility] Last Admin: 03/06/25 06:19 Dose: 20 mg Documented By: IZZY Ondansetron HCl (Ondansetron Hcl 4 Mg/2 Ml Vial) 4 mg IVPUSH Q8H PRN PRN Reason: Nausea and Vomiting Senna (Sennosides 8.6 Mg Tablet) 17.2 mg PO BEDTIME [facility] Last Admin: 03/05/25 19:58 Dose: 17.2 mg Documented By: IZZY Sodium Chloride (0.9 % Sodium Chloride Flush 3 Ml Syringe) 3 ml IVFLUSH QSHIFT [facility] Last Admin: 03/06/25 10:33 Dose: Not Given Documented By: YINKA Non-Admin Reason: No Access Labs 03/01/25 04:19 03/01/25 04:19 Labs: Laboratory Results - last 24 hr 03/05/25 14:03 Respiratory Panel [place] See Note Adenovirus (Rapid PCR) Not Detected B.pert (TEM-PCR) Not Detected B.parapertussis DNA PCR Not Detected C. pneumoniae DNA (PCR) Not Detected Coronavirus OC43 (PCR) Not Detected Coronavirus HKU1 (PCR) Not Detected Coronavirus 229E (PCR) Not Detected Coronavirus NL63 (PCR) Not Detected Human Metapneumovir PCR Not Detected Influenza A (RT-PCR) Not Detected Influenza A (H1) PCR Not Detected Influ A (H1/09) PCR Not Detected Influenza A (H3) PCR Not Detected Influenza B (RT-PCR) Not Detected M. pneumoniae (PCR) Not Detected Parainfluenza 1 (PCR) Not Detected Parainfluenza 2 (PCR) Not Detected Parainfluenza 3 (PCR) Detected A Parainfluenza 4 (PCR) Not Detected RSV (PCR) Not Detected Entero/Rhino (PCR) Not Detected SARS-CoV-2 RNA (RT-PCR) Not Detected Assessment and Plan (1) Acute exacerbation of chronic heart failure: Status: Acute Plan 84-year-old female with past medical history hypertension, persistent AFib on Eliquis, chronic kidney disease stage IIIB, severe mitral valve regurgitation, systolic heart failure EF 50-55%, CAD, CABG, cognitive deficits, peripheral arterial disease, hyperlipidemia, large hiatal hernia with GERD, Roger's esophagus, osteoarthritis, and chronic constipation with straining is being admitted for CHF exacerbation that prompted a very irritible cough that has since improved. The cough is non productive. No evidence of PNA on CXR. Pt will continue on IV lasix 40 BID for now and ECHO tomorrow as last echo was in 2021. Pt has known severe MR and follows with [facility]. CHF exacerbation, systolic i/o neg 900ml,has execersional dyspnea plan: moniter i/o 1.4 liter negative ,BNP ,ECHO Fluid restriciton of 1500 mls i/o neg 1.2 liter resume lasix since diarrhae improved. CHF education started with admission patient has intermittent cough-parainfluenza,,chf no sob cough also improved significantly cxr on admission- Mild interstitial lung edema check respiratory viral panel added cough medication, incentive spirometry,chest physiotherapy,nebs Loose stool episodes hold luxative cdiff negative moniter Ua : has aymptomatic pyuria and bacteruria. SHANNAN on CKD 3B GFR 30 Cr CL 25.7 Strict I/Os Avoid hypotension, No NSAIDs cr seems near baseline Maceration of skin in gluteal fold and perinium area Wound care consult ordered Nystatin cream startred BID Incontinence care needed Persistent AFIB Eliquis and BB once MED [facility] completed Rate controlled currently TSH and MG WNL Severe MVR Known since 2021, pt is not a surgical candidate due to age, hx of CABG per web developer programmer Echo ordered for AM, last was in 2021 Large Hiatal Hernia with GERD, Roger's Esophagus Chronic, no issues with dysphagia, aspiration Continue omeprazole Cognitive impairment /generalized weak Per pt's daughter, this has become more evident over the last 2 months Pt's mobility is overall declining, no falls have occurred so far Daughter is planning on moving in with pt, as brother is often away (pt lives in son's home) Pt does not have life line device. Family is requesting help with obtaining in home MANUFACTURING ENGINEERING TECHNICIAN/Nursing care, life line device awaiting rehab placement Quality Stroke Does the patient have a stroke diagnosis?: No Reason for No Anti-thrombotic by Day Two: N/A - Med Ordered VTE Prior VTE?: No VTE Risk Level:: Medical - moderate - high VTE Device Contraindication: N/A - Device Ordered VTE Drug Contraindication: N/A - Med Ordered
--- NOTE | 2025-03-06 12:56 | MHC.CM.PN ---
Addendum entered by Janelle Pfeiffer 03/06/25 16:31: PTS DAUGHTER/HCP, KAI, REPORTS SHE MAY NOT ALWAYS BE ABLE TO ANSWER THE PHONE. SHE ASKS THAT FAMILY BE CONTACTED IN THE FOLLOWING ORDER: 1. KAI [phone] 2. OSIEL [phone] 3. ABNER [phone] Addendum entered by Janelle Pfeiffer 03/06/25 16:04: CM CALLED PTS DAUGHTER/HCP, KAI [phone] TO REVIEW BED OFFERS. AT THIS TIME, VIVIAN NUGENT, JAVI BARRIENTOS AT [facility] AND [facility] ARE OFFERING KAI REPORTS SHE IS UNSURE ABOUT ANY OF THESE PLACES AND WANTS TO SPEAK TO HER BROTHER MINERVA SHE ALSO NOTES SHE WILL SPEAK TO A FRIEND, WHO IS A DIRECTOR AT [facility], TO DETERMINE IF THEY COULD OFFER A BED SHE WILL CALL CM BACK. SHE IS AWARE [facility] WILL NOT CONSIDER PT FOR AT LEAST 8 DAYS SO WILL NOT BE AN OPTION PT IS MEDICALLY CLEARED Original Note: PT WAS SUPPOSED TO DC TO [facility] TODAY FOR STR, HOWEVER THEY HAVE RESCINDED THE BED OFFER DUE TO THE [facility] DIAGNOSIS REFERRALS UPDATED AND RESENT
[2025-03-06] MEDS: guaiFEN/Codeine SF 200/20/10ML 10 ML LIQUID 5 ML PO (15:54)
[2025-03-06] MEDS: Albuterol/Iprat 2.5/0.5MG 3 ML AMPUL.NEB INHALE (19:53)
[2025-03-06] MEDS: Sennosides 8.6 MG TABLET 17.2 MG PO (22:51)
[2025-03-06] MEDS: Atorvastatin Calcium 40 MG TABLET PO (22:51)
[2025-03-07] MEDS: guaiFEN/Codeine SF 200/20/10ML 10 ML LIQUID 5 ML PO ×2 (02:41→16:42)
[2025-03-07 03:11] VITALS: BP 115/55; PULSE 87; RESP 18; TEMP 36.9; O2SAT 94
[2025-03-07 06:00] VITALS: BMI 25.0
[2025-03-07] MEDS: Omeprazole 20 MG CAPSULE.DR PO (06:04)
[2025-03-07 07:10] VITALS: BP 118/65; PULSE 74; RESP 18; TEMP 36.8; O2SAT 96
[2025-03-07] MEDS: Apixaban 5 MG TABLET PO ×2 (09:39→20:42)
[2025-03-07] MEDS: Calcium Oyster Shell Elemental 500 MG TABLET PO (09:39)
[2025-03-07] MEDS: Benzonatate 100 MG CAPSULE PO ×3 (09:39→20:42)
[2025-03-07] MEDS: Multivitamin TABLET 1 TAB PO (09:39)
[2025-03-07] MEDS: Furosemide 40 MG TABLET PO ×2 (09:39→16:42)
[2025-03-07] MEDS: guaiFENesin LA 600 MG TAB.ER.12H PO ×2 (09:39→20:42)
[2025-03-07] MEDS: Loratadine 10 MG TABLET 5 MG PO (09:39)
[2025-03-07] MEDS: Metoprolol Tartrate 25 MG TABLET PO ×2 (09:39→20:42)
[2025-03-07] MEDS: Nystatin Cream 15 GM TUBE 1 APPL TOPICAL ×2 (09:47→20:43)
--- NOTE | 2025-03-07 11:58 | MHC.CM.PN ---
Addendum entered by Cindy Perkins 03/07/25 14:53: This CM received a call back from pts daughter/HCP Aida, they have decided to choice [facility] in [place], insurance auth is now pending. Addendum entered by Cindy Perkins 03/07/25 12:14: This CM called and spoke with pts son/HCP [place] to review STR options, he states he will discuss with Aida and they will call us back with their choice. Original Note: EMR reviewed and per MD rounds, pt remains medically cleared for discharge. This CM called to speak with pts HCP Aida, to discuss STR options. Per Christina she wasn't sent a list of options so she hasn't had a chance to review. There are 3 current STR be offers. List of the 3 facilities was sent to Aida via email per her request at 10:44am. This CM and Aida discussed that this CM would call Aida back in 1 hour to follow up on her rehab preference. This CM called Aida back at 11:58am. Aida answered the phone stating has is really been an hour? I can't talk right now, stating she is at a doctor's appointment.
[2025-03-07 15:16] VITALS: BP 102/63; PULSE 72; RESP 18; TEMP 37.1
--- NOTE | 2025-03-07 16:06 | HO.PM.IMPN ---
Subjective Subjective Date of Service: 03/07/25 Interval History: Patient awake alert offers no acute complaints, denies shortness of breath, no pain, tolerating diet with no nausea, no vomiting or abdominal pain. Review of Systems All other system reviewed and are negative Physical Exam Vital Signs: Vital Signs: Last Vital Signs Temp 98.7 F 03/07/25 15:16 Pulse 72 03/07/25 15:16 Resp 18 03/07/25 15:16 BP 102/63 03/07/25 15:16 Pulse Ox 96 03/07/25 07:10 O2 Del Method Room Air 03/07/25 07:10 BMI result Body Mass Index 25.0 Const: Other: General resting comfortably in no acute distress. Neck no JVD. CVS regular rate rhythm, Respiratory lungs clear to auscultation, no respiratory distress, no wheeze, no rhonchi. Gastrointestinal abdomen soft, non tender, bowel sounds audible. Extremities no edema. Neuro non focal Skin no rash Objective Data Active Medications Acetaminophen (Acetaminophen 325 Mg Tablet) 650 mg PO Q6H PRN PRN Reason: Pain, Mild 1-3,fever,headache Apixaban (Apixaban 5 Mg Tablet) 5 mg PO BID [facility] Last Admin: 03/07/25 09:39 Dose: 5 mg Documented By: YINKA Atorvastatin Calcium (Atorvastatin Calcium 40 Mg Tablet) 40 mg PO BEDTIME [facility] Last Admin: 03/06/25 22:51 Dose: 40 mg Documented By: DAVID Benzonatate (Benzonatate 100 Mg Capsule) 100 mg PO TID [facility] Last Admin: 03/07/25 09:39 Dose: 100 mg Documented By: YINKA Calcium Carbonate (Calcium Carbonate 750 Mg Tab.Chew) 750 mg PO Q4H PRN PRN Reason: Heartburn Calcium Carbonate (Calcium Oyster Shell Elemental 500 Mg Tablet) 500 mg PO DAILY [facility] Last Admin: 03/07/25 09:39 Dose: 500 mg Documented By: YINKA Furosemide (Furosemide 40 Mg Tablet) 40 mg PO BID@0900,1800 [facility]; Protocol Last Admin: 03/07/25 09:39 Dose: 40 mg Documented By: YINKA Guaifenesin (Guaifenesin La 600 Mg Tab.Er.12h) 600 mg PO BID [facility] Last Admin: 03/07/25 09:39 Dose: 600 mg Documented By: YINKA Guaifenesin/Codeine Phosphate (Guaifen/Codeine Sf 200/20/10ml 10 Ml Liquid) 5 ml PO Q6H PRN PRN Reason: Cough Last Admin: 03/07/25 02:41 Dose: 5 ml Documented By: DAVID Loratadine (Loratadine 10 Mg Tablet) 5 mg PO DAILY [facility] Last Admin: 03/07/25 09:39 Dose: 5 mg Documented By: YINKA Melatonin (Melatonin 3 Mg Tablet) 6 mg PO BEDTIME PRN PRN Reason: Insomnia Last Admin: 03/05/25 19:56 Dose: 6 mg Documented By: IZZY Metoprolol Tartrate (Metoprolol Tartrate 25 Mg Tablet) 25 mg PO BID [facility]; Protocol Last Admin: 03/07/25 09:39 Dose: 25 mg Documented By: YINKA Multivitamins/Vitamin C (Multivitamin Tablet) 1 tab PO DAILY [facility] Last Admin: 03/07/25 09:39 Dose: 1 tab Documented By: YINKA Nystatin (Nystatin Cream 15 Gm Tube) 1 appl TOPICAL BID [facility]; Protocol Last Admin: 03/07/25 09:47 Dose: 1 appl Documented By: YINKA Omeprazole (Omeprazole 20 Mg Capsule.Dr) 20 mg PO DAILY@0630 [facility] Last Admin: 03/07/25 06:04 Dose: 20 mg Documented By: DAVID Ondansetron HCl (Ondansetron Hcl 4 Mg/2 Ml Vial) 4 mg IVPUSH Q8H PRN PRN Reason: Nausea and Vomiting Senna (Sennosides 8.6 Mg Tablet) 17.2 mg PO BEDTIME [facility] Last Admin: 03/06/25 22:51 Dose: 17.2 mg Documented By: DAVID Sodium Chloride (0.9 % Sodium Chloride Flush 3 Ml Syringe) 3 ml IVFLUSH QSHIFT [facility] Last Admin: 03/07/25 09:43 Dose: Not Given Documented By: YINKA Non-Admin Reason: No Access Labs 03/01/25 04:19 03/01/25 04:19 Assessment and Plan (1) Acute exacerbation of chronic heart failure: Status: Acute (2) Acute kidney injury superimposed on stage 3b chronic kidney disease: Status: Acute Plan 84-year-old female with past medical history hypertension, persistent AFib on Eliquis, chronic kidney disease stage IIIB, severe mitral valve regurgitation, systolic heart failure EF 50-55%, CAD, CABG, cognitive deficits, peripheral arterial disease, hyperlipidemia, large hiatal hernia with GERD, Roger's esophagus, osteoarthritis, and chronic constipation with straining is being admitted for CHF exacerbation that prompted a very irritible cough that has since improved. The cough is non productive. No evidence of PNA on CXR. Pt will continue on IV lasix 40 BID for now and ECHO tomorrow as last echo was in 2021. Pt has known severe MR and follows with [facility]. Acute CHF exacerbation, systolic resolved Treated with IV Lasix with good response, asymptomatic no shortness a breath, stable oxygen Continue Lasix home dose Echocardiogram, showed moderate , severely dilated left atrium, difficult to assess EF, no wall motion abnormality URI due to Parainfluenza no sob, cough improved Continue as needed cough medication Loose stool cdiff negative , diarrhea resolved SHANNAN on CKD 3B likely cardiorenal creatinine returned to baseline Avoid hypotension, No NSAIDs Maceration of skin in gluteal fold and perinium area likely Hilary intertrigo Continue Nystatin cream BID Persistent AFIB Rate control continue Eliquis and BB Severe MVR Known since 2021, pt .is not a surgical candidate per inside sales recruiter Large Hiatal Hernia with GERD, Roger's Esophagus Chronic, no issues with dysphagia, aspiration Continue omeprazole Cognitive impairment /generalized weakness seen by Physical therapy they recommend short-term rehab waiting for authorization Disposition awaiting rehab placement DVT prophylaxis on Eliquis DNR DNI In my clinical judgment patient require continued inpatient hospitalization for monitoring of CHF and safe disposition. Quality Stroke Does the patient have a stroke diagnosis?: No Reason for No Anti-thrombotic by Day Two: N/A - Med Ordered VTE Prior VTE?: No VTE Risk Level:: Medical - moderate - high VTE Device Contraindication: N/A - Device Ordered VTE Drug Contraindication: N/A - Med Ordered
[2025-03-07 20:00] VITALS: BP 135/62; PULSE 80; RESP 16; TEMP 36.6; O2SAT 96
[2025-03-07] MEDS: Atorvastatin Calcium 40 MG TABLET PO (20:42)
[2025-03-08] VITALS: BP 131/58; PULSE 73; RESP 14; TEMP 37.6; O2SAT 96
[2025-03-08 04:00] VITALS: BP 130/63; PULSE 74; RESP 14; TEMP 37.5; O2SAT 96
[2025-03-08] MEDS: Omeprazole 20 MG CAPSULE.DR PO (05:34)
[2025-03-08] MEDS: guaiFEN/Codeine SF 200/20/10ML 10 ML LIQUID 5 ML PO ×2 (05:35→21:00)
[2025-03-08 05:53] VITALS: BMI 21.9
[2025-03-08 07:36] VITALS: BP 132/62; PULSE 80; RESP 14; TEMP 36.9; O2SAT 95
[2025-03-08] MEDS: Loratadine 10 MG TABLET 5 MG PO (10:31)
[2025-03-08] MEDS: Furosemide 40 MG TABLET PO ×2 (10:31→17:09)
[2025-03-08] MEDS: Metoprolol Tartrate 25 MG TABLET PO ×2 (10:31→20:59)
[2025-03-08] MEDS: Calcium Oyster Shell Elemental 500 MG TABLET PO (10:31)
[2025-03-08] MEDS: Apixaban 5 MG TABLET PO ×2 (10:31→20:59)
[2025-03-08] MEDS: guaiFENesin LA 600 MG TAB.ER.12H PO ×2 (10:31→20:59)
[2025-03-08] MEDS: Multivitamin TABLET 1 TAB PO (10:32)
[2025-03-08] MEDS: Nystatin Cream 15 GM TUBE 1 APPL TOPICAL ×2 (10:32→21:01)
[2025-03-08] MEDS: Benzonatate 100 MG CAPSULE PO ×3 (10:32→20:59)
[2025-03-08] MEDS: Calcium Carbonate 750 MG TAB.CHEW PO (10:50)
--- NOTE | 2025-03-08 14:49 | MHC.CM.PN ---
[facility] is still waiting on insurance auth; per MD, plan will be to dc tomorrow, pending auth. CM will follow.
--- NOTE | 2025-03-08 15:14 | P.PNIM_ITS ---
Subjective Subjective Date of Service: 03/08/25 Interval History: Offers no acute complaints No shortness of breath, no chest pain, no cough, no diarrhea moving bowels, tolerating diet. No acute events overnight. Review of Systems All other system reviewed and are negative. Physical Exam 2 Vital Signs: Vital Signs: Last Vital Signs Temp 98.4 F 03/08/25 07:36 Pulse 80 03/08/25 07:36 Resp 14 03/08/25 07:36 BP 132/62 03/08/25 07:36 Pulse Ox 95 03/08/25 07:36 O2 Del Method Room Air 03/08/25 07:36 BMI result Body Mass Index 21.9 Const: Other: General resting comfortably in no acute distress. Neck no JVD. CVS regular rate rhythm, Respiratory lungs clear to auscultation, no respiratory distress, no wheeze, no rhonchi. Gastrointestinal abdomen soft, non tender, bowel sounds audible. Extremities no edema. Neuro non focal Skin no rash Objective Data Active Medications Acetaminophen (Acetaminophen 325 Mg Tablet) 650 mg PO Q6H PRN PRN Reason: Pain, Mild 1-3,fever,headache Apixaban (Apixaban 5 Mg Tablet) 5 mg PO BID [facility] Last Admin: 03/08/25 10:31 Dose: 5 mg Documented By: ANGEL Atorvastatin Calcium (Atorvastatin Calcium 40 Mg Tablet) 40 mg PO BEDTIME [facility] Last Admin: 03/07/25 20:42 Dose: 40 mg Documented By: ARTIE Benzonatate (Benzonatate 100 Mg Capsule) 100 mg PO TID [facility] Last Admin: 03/08/25 10:32 Dose: 100 mg Documented By: ANGEL Calcium Carbonate (Calcium Carbonate 750 Mg Tab.Chew) 750 mg PO Q4H PRN PRN Reason: Heartburn Last Admin: 03/08/25 10:50 Dose: 750 mg Documented By: ANGEL Calcium Carbonate (Calcium Oyster Shell Elemental 500 Mg Tablet) 500 mg PO DAILY [facility] Last Admin: 03/08/25 10:31 Dose: 500 mg Documented By: ANGEL Furosemide (Furosemide 40 Mg Tablet) 40 mg PO BID@0900,1800 [facility]; Protocol Last Admin: 03/08/25 10:31 Dose: 40 mg Documented By: ANGEL Guaifenesin (Guaifenesin La 600 Mg Tab.Er.12h) 600 mg PO BID [facility] Last Admin: 03/08/25 10:31 Dose: 600 mg Documented By: ANGEL Guaifenesin/Codeine Phosphate (Guaifen/Codeine Sf 200/20/10ml 10 Ml Liquid) 5 ml PO Q6H PRN PRN Reason: Cough Last Admin: 03/08/25 05:35 Dose: 5 ml Documented By: ARTIE Comments: Loratadine (Loratadine 10 Mg Tablet) 5 mg PO DAILY [facility] Last Admin: 03/08/25 10:31 Dose: 5 mg Documented By: ANGEL Melatonin (Melatonin 3 Mg Tablet) 6 mg PO BEDTIME PRN PRN Reason: Insomnia Last Admin: 03/05/25 19:56 Dose: 6 mg Documented By: IZZY Metoprolol Tartrate (Metoprolol Tartrate 25 Mg Tablet) 25 mg PO BID [facility]; Protocol Last Admin: 03/08/25 10:31 Dose: 25 mg Documented By: ANGEL Multivitamins/Vitamin C (Multivitamin Tablet) 1 tab PO DAILY [facility] Last Admin: 03/08/25 10:32 Dose: 1 tab Documented By: ANGEL Nystatin (Nystatin Cream 15 Gm Tube) 1 appl TOPICAL BID [facility]; Protocol Last Admin: 03/08/25 10:32 Dose: 1 appl Documented By: ANGEL Omeprazole (Omeprazole 20 Mg Capsule.Dr) 20 mg PO DAILY@0630 [facility] Last Admin: 03/08/25 05:34 Dose: 20 mg Documented By: ARTIE Ondansetron HCl (Ondansetron Hcl 4 Mg/2 Ml Vial) 4 mg IVPUSH Q8H PRN PRN Reason: Nausea and Vomiting Senna (Sennosides 8.6 Mg Tablet) 17.2 mg PO BEDTIME [facility] Last Admin: 03/07/25 20:45 Dose: Not Given Documented By: ARTIE Non-Admin Reason: Patient Refused Sodium Chloride (0.9 % Sodium Chloride Flush 3 Ml Syringe) 3 ml IVFLUSH QSHIFT [facility] Last Admin: 03/08/25 15:05 Dose: Not Given Documented By: ANGEL Non-Admin Reason: No Access Labs 03/01/25 04:19 03/01/25 04:19 Assessment and Plan (1) Acute exacerbation of chronic heart failure: Status: Acute (2) Acute kidney injury superimposed on stage 3b chronic kidney disease: Status: Acute Plan 84-year-old female with past medical history hypertension, persistent AFib on Eliquis, chronic kidney disease stage IIIB, severe mitral valve regurgitation, systolic heart failure EF 50-55%, CAD, CABG, cognitive deficits, peripheral arterial disease, hyperlipidemia, large hiatal hernia with GERD, Roger's esophagus, osteoarthritis, and chronic constipation with straining is being admitted for CHF exacerbation that prompted a very irritible cough that has since improved. The cough is non productive. No evidence of PNA on CXR. Pt will continue on IV lasix 40 BID for now and ECHO tomorrow as last echo was in 2021. Pt has known severe MR and follows with [facility]. Acute CHF exacerbation, systolic resolved Treated with IV Lasix with good response, asymptomatic, no shortness of breath, stable oxygen Continue Lasix home dose, no hypoxia Echocardiogram, showed moderate , severely dilated left atrium, difficult to assess EF, no wall motion abnormality URI due to Parainfluenza no sob, cough improved Continue as needed cough medication , supportive care. Loose stool cdiff negative , diarrhea resolved SHANNAN on CKD 3B likely cardiorenal creatinine returned to baseline Avoid hypotension, No NSAIDs. Maceration of skin in gluteal fold and perinium area likely Hilary intertrigo Improving, Continue Nystatin cream BID. Persistent AFIB Rate control continue Eliquis and BB Severe MVR Known since 2021, pt .is not a surgical candidate per cylinder checker Large Hiatal Hernia with GERD, Roger's Esophagus Chronic, no issues with dysphagia, aspiration Continue omeprazole Cognitive impairment /generalized weakness seen by Physical therapy they recommend short-term rehab waiting for authorization Disposition awaiting rehab placement DVT prophylaxis on Eliquis DNR DNI In my clinical judgment patient require continued inpatient hospitalization for monitoring of CHF and safe disposition. Quality Stroke Does the patient have a stroke diagnosis?: No Reason for No Anti-thrombotic by Day Two: N/A - Med Ordered VTE Prior VTE?: No VTE Risk Level:: Medical - moderate - high VTE Device Contraindication: N/A - Device Ordered VTE Drug Contraindication: N/A - Med Ordered
[2025-03-08 15:54] VITALS: BP 110/68; PULSE 75; RESP 18; TEMP 37.2; O2SAT 97
[2025-03-08 19:55] VITALS: BP 124/59; PULSE 70; RESP 16; TEMP 36.6; O2SAT 97
[2025-03-08] MEDS: Atorvastatin Calcium 40 MG TABLET PO (20:59)
[2025-03-08] MEDS: Sennosides 8.6 MG TABLET 17.2 MG PO (20:59)
[2025-03-09 04:00] VITALS: BP 118/44; PULSE 77; RESP 16; TEMP 36.9; O2SAT 96
[2025-03-09] MEDS: Omeprazole 20 MG CAPSULE.DR PO (06:04)
[2025-03-09] MEDS: guaiFEN/Codeine SF 200/20/10ML 10 ML LIQUID 5 ML PO (06:04)
[2025-03-09 07:49] VITALS: BP 113/55; PULSE 89; RESP 17; TEMP 37.7; O2SAT 91
[2025-03-09] MEDS: Apixaban 5 MG TABLET PO (09:11)
[2025-03-09] MEDS: guaiFENesin LA 600 MG TAB.ER.12H PO (09:11)
[2025-03-09] MEDS: Loratadine 10 MG TABLET 5 MG PO (09:11)
[2025-03-09] MEDS: Furosemide 40 MG TABLET PO (09:12)
[2025-03-09] MEDS: Benzonatate 100 MG CAPSULE PO (09:12)
[2025-03-09] MEDS: Calcium Oyster Shell Elemental 500 MG TABLET PO (09:12)
[2025-03-09] MEDS: Multivitamin TABLET 1 TAB PO (09:12)
[2025-03-09] MEDS: Metoprolol Tartrate 25 MG TABLET PO (09:12)
--- NOTE | 2025-03-09 09:13 | MHC.CM.PN ---
Second IMM given 03/09. Insurance authorization has been received for pt to go to [facility] today. Pt will transport there via BLS/[facility]. Pt is aware and in agreement of discharge plan. Pts son/HCP [place] was called and notified of discharge, voicemail left. This CM called to notify pts daughter/alternate HCP Aida of discharge, due to not reaching [place].
--- NOTE | 2025-03-09 09:18 | P.DS_ITS ---
DS: Providers Provider Date of Service: 03/09/25 Date of admission: 03/01/25 11:19 Date of discharge: 03/09/25 Primary care physician: Edwin Allen MD Consults: 03/01/25 22:33 Consult to Wound Care Routine Reason for consultation: excoriation, MASD DS: Diagnosis Discharge Diagnosis (1) Acute exacerbation of chronic heart failure: Status: Acute (2) Acute kidney injury superimposed on stage 3b chronic kidney disease: Status: Acute DS: Summary Hospital Course Hospital Course: HPI:84-year-old female with past medical history hypertension, persistent AFib on Eliquis, chronic kidney disease stage IIIB, severe mitral valve regurgitation, systolic heart failure EF 50-55%, CAD, CABG, cognitive deficits, peripheral arterial disease, hyperlipidemia, large hiatal hernia with GERD, Roger's esophagus, osteoarthritis, and chronic constipation with straining presents to emergency room with complaints of severe shortness of breath with a persistent irritable cough that is nonproductive. Patient did not have fever, chills and did not require oxygen. Chest x-ray positive for interstitial markings in pulmonary reticular pattern no evidence of pneumonia. Patient responded well to IV Lasix. Remains on RA. All viral studies are negative. Patient currently denies any chest pain, shortness of breath at rest, abdominal pain, nausea, vomiting, diarrhea but reports persistent constipation often times with straining. Patient's daughter also present and reports that patient is at times incontinent and is currently wearing depends. Patient has been living with her son who is often not in the home setting and patient has often alone. Family has noted that patient has mobility issues have worsened and now patient requires 2 canes to ambulate to the bathroom. Patient often has accidents due to the amount of time she needs to ambulate to the restroom. Patient does present with maceration of the skin in the gluteal fold and the perineum area. No other open wounds found. Family is requesting help with finding in-home nursing care. Patient is currently [employer] eligible. Daughter is proposing to move in with patient in the brother's home so that patient will have somebody there . Patient will be evaluated by Physical therapy during this admission under observation only. Patient does follow with [facility]. Echo will be ordered as last echo was in 2021. Cardiology can be consulted if needed. Hospital course: 84-year-old female with past medical history hypertension, persistent AFib on Eliquis, chronic kidney disease stage IIIB, severe mitral valve regurgitation, systolic heart failure EF 50-55%, CAD, CABG, cognitive deficits, peripheral arterial disease, hyperlipidemia, large hiatal hernia with GERD, Roger's esophagus, osteoarthritis, and chronic constipation admitted to [facility] for CHF exacerbation, chest x-ray showed Mild prominence of the interstitial markings, No gross consolidation, pleural effusion or pneumothorax, she was treated with IV Lasix, with good response, respiratory status returned to baseline, recommend to continue home dose of Lasix, Low-dose lisinopril. Monitor renal function electrolytes outpatient. loose stools : Resolved C diff negative Intermittent cough with parainfluenza uri: Continue as needed cough medication SHANNAN on CKD: Seems to be improved to baseline creatinine is 1.3, Monitor renal function electrolytes outpatient periodically. plan: continue home lasix. moniter renal function/electrolytes outpatient. CHF education given-CHF education given-if gains weight 2 lb or more in a week- will need outpatient Lasix dosing assessment with PCP. Consider Follow-up with cardiology outpatient. PT recomended rehab. Assessment plan coordination time spent 40 minute. Time Attestation Discharge Coordination Time (in mins): 40 Quality: Safe Use of Opioids Does Pt have an Active Cancer Diagnosis on the Problem List?: No Quality: Stroke Does the patient have a stroke diagnosis?: No Physical Exam Vital Signs: Vital Signs: Last Vital Signs Temp 99.8 F 03/09/25 07:49 Pulse 89 03/09/25 07:49 Resp 17 03/09/25 07:49 BP 113/55 L 03/09/25 07:49 Pulse Ox 91 L 03/09/25 07:49 O2 Del Method Room Air 03/09/25 07:49 BMI result Body Mass Index 21.9 Const: Other: General resting comfortably in no acute distress. Neck no JVD. CVS regular rate rhythm, Respiratory lungs clear to auscultation, no respiratory distress, no wheeze, no rhonchi. Gastrointestinal abdomen soft, non tender, bowel sounds audible. Extremities no edema. Neuro non focal Skin no rash Discharge Plan Discharge Anticipated Discharge Date/Time: 03/09/25 09:16 Patient Disposition: Home Health Service Discharge Diagnosis: CHF exacerbation,shannan on ckd ,parainfluenza uri Referrals: Po,Edwin Garcia MD [Primary Care Provider] - 1 Week Discharge Medications: New polyethylene glycol 3350 17 gram Powder In Packet 17 g PO DAILY PRN (Reason: constipation) Qty: 14 0RF nystatin 100,000 unit/gram Cream 1 appl topical BID Qty: 1 0RF Protocol: Apply to: Apply to: gluteal fold and affected area of perineum benzonatate 100 mg Capsule 100 mg PO TID PRN (Reason: Cough) Qty: 20 0RF loratadine 10 mg Tablet 5 mg PO DAILY Qty: 10 0RF guaifenesin [Mucinex] 600 mg Tablet Extended Release 12hr 600 mg PO BID Qty: 14 0RF ipratropium-albuterol 0.5 mg-3 mg(2.5 mg base)/3 mL Solution For Nebulization 3 ml inhalation Q4H PRN (Reason: sob) Qty: 1 0RF Continued metoprolol tartrate 25 mg tablet 25 mg PO BID 90 Days Qty: 180 3RF Eliquis 5 mg tablet 5 mg PO BID Qty: 180 3RF furosemide 40 mg tablet 40 mg PO BID@0900,1800 90 Days Qty: 180 0RF Protocol: Hold for SBP< HOLD for SBP < : 90 atorvastatin 40 mg tablet 40 mg PO BEDTIME Qty: 90 0RF calcium carbonate 500 mg calcium (1,250 mg) Tablet 500 mg PO DAILY omeprazole 20 mg capsule,delayed release(DR/EC) 20 mg PO DAILY multivitamin Tablet 1 tab PO DAILY Changed lisinopril 5 mg tablet 2.5 mg PO DAILY Qty: 90 1RF Discharge Orders: Discharge Order (Routine); Ordered 03/09/25 Ordered By: Familia Hansen Diet: Advance to usual diet Activity on Discharge: As tolerated Stand Alone Forms: Patient Portal Discharge page Print Language: Malay Other Ambulatory Orders: Basic Metabolic Panel (Routine) Timeframe: 1 Week Facility: [facility] - Location: Laboratory Ordered By: Elmer Carver Care Plan Goals: 84-year-old female with past medical history hypertension, persistent AFib on Eliquis, chronic kidney disease stage IIIB, severe mitral valve regurgitation, systolic heart failure EF 50-55%, CAD, CABG, cognitive deficits, peripheral arterial disease, hyperlipidemia, large hiatal hernia with GERD, Roger's esophagus, osteoarthritis, and chronic constipation with straining is being admitted for CHF exacerbation: Patient was started on IV Lasix, diuresed well seems to be improved ,respiratory status seems to be at baseline. Patient was switched to p.o. Lasix. Monitor renal function electrolytes outpatient. CHF education given-CHF education given-if gains weight 2 lb or more in a week- will need outpatient Lasix dosing assessment with PCP. Consider Follow-up with cardiology outpatient. SHANNAN on CKD: Seems to be improved to baseline creatinine is 1.3. Monitor renal function electrolytes outpatient. intermittent cough with parainfluenza uri:cough improving ,cxr negative - continue cough meds. Constipation: Patient passing BM, no abdominal pain, going home with [employer]. Health Concerns: As above. Plan of Treatment: As above. Assessment: As above. Patient Instructions: Heart Failure (DC), Constipation (DC), Parainfluenza (GEN)
--- NOTE | 2025-03-09 10:23 | PC.NURSE ---
Weight 57.9 kg 03/08/25 in am , RN notified DR Hansen in re: weights values in the past few days, today weight 74.9 kg at 10 am , pt had breakfast already . Dr Hansen was notified about today's weight and per MD , pt is clinically stable and no need for further intervention. RN explained to the patient that is important to get up from the bed and recheck the weight for accuracy . Pt refused to get up from the bed .
== END 2025-03-09 12:20 | disposition home health service (06) | DRG 291 ==
LOC: HO.ED 22:29 → HO.EDOVER 03-01 00:24 → HO.IMC 03-01 16:02
PROVIDERS: Internal Medicine; Physician Assistant Medical; Admitting Provider Nurse Practitioner Family; Emergency Provider Emergency Medicine; PCP Internal Medicine; Visit Provider Hospitalist
DX: I13.0 Hypertensive heart and chronic kidney disease with heart failure and stage 1 through stage 4 chronic kidney disease, or unspecified chronic kidney disease (principal); I50.23 Acute on chronic systolic (congestive) heart failure; I48.19 Other persistent atrial fibrillation; N17.9 Acute kidney failure, unspecified; I25.10 Atherosclerotic heart disease of native coronary artery without angina pectoris; I34.0 Nonrheumatic mitral (valve) insufficiency; N18.32 Chronic kidney disease, stage 3b; K44.9 Diaphragmatic hernia without obstruction or gangrene; R41.9 Unspecified symptoms and signs involving cognitive functions and awareness; K21.9 Gastro-esophageal reflux disease without esophagitis; J06.9 Acute upper respiratory infection, unspecified; B97.89 Other viral agents as the cause of diseases classified elsewhere; K59.00 Constipation, unspecified; K22.70 Barrett's esophagus without dysplasia; Z20.822 Contact with and (suspected) exposure to COVID-19; Z74.1 Need for assistance with personal care; Z87.891 Personal history of nicotine dependence; Z95.1 Presence of aortocoronary bypass graft; Z79.01 Long term (current) use of anticoagulants; Z79.899 Other long term (current) drug therapy
CPT/HCPCS: 0241U; 36415; 71046; 80048; 80053; 80076; 81001; 83735; 83880; 84484; 85025; 87493; 87507; 87633; 93005; 93306; 94640; 97110; 97116; 97162; 97530; 99285; J1940; Q9957

== ENCOUNTER → 2025-02-28 15:05 | Outpatient (BNV) | payer MEDICARE, SELFPAY ==
[2022-10-20 12:25] VITALS: BP 116/64; BMI 28.6
== END ==
PROVIDERS: Admitting Provider Nurse Practitioner Family; Emergency Provider Emergency Medicine; PCP Internal Medicine; Visit Provider Internal Medicine
DX: I48.91 Unspecified atrial fibrillation (principal); I25.2 Old myocardial infarction
CPT/HCPCS: 93010

== ENCOUNTER → 2025-02-28 15:14 | Outpatient (BNV) | payer MEDICARE, SELFPAY ==
[2022-10-20 12:25] VITALS: BP 116/64; BMI 28.6
== END ==
PROVIDERS: PCP Internal Medicine; Visit Provider Radiology Diagnostic Radiology
DX: J84.9 Interstitial pulmonary disease, unspecified (principal)
CPT/HCPCS: 71046

== ENCOUNTER → 2025-02-28 15:36 | Outpatient (BNV) | payer MEDICARE, SELFPAY ==
[2022-10-20 12:25] VITALS: BP 116/64; BMI 28.6
== END ==
PROVIDERS: Emergency Provider Emergency Medicine; PCP Internal Medicine; Visit Provider Nurse Practitioner Family
DX: I50.9 Heart failure, unspecified (principal)
CPT/HCPCS: 99231; 99232; 99239; 99497; G0180

== ENCOUNTER → 2025-03-01 07:00 | Outpatient (BNV) | payer MEDICARE, SELFPAY ==
[2022-10-20 12:25] VITALS: BP 116/64; BMI 28.6
== END ==
PROVIDERS: Admitting Provider Nurse Practitioner Family; Emergency Provider Emergency Medicine; PCP Internal Medicine; Visit Provider Internal Medicine
DX: I35.2 Nonrheumatic aortic (valve) stenosis with insufficiency (principal); I34.81 Nonrheumatic mitral (valve) annulus calcification
CPT/HCPCS: 93306

== ENCOUNTER → 2025-04-14 23:59 | Outpatient (BNV) | payer MEDICARE, SELFPAY ==
[2022-10-20 12:25] VITALS: BP 116/64; BMI 28.6
== END ==
PROVIDERS: PCP Internal Medicine; Visit Provider Internal Medicine
DX: I13.2 Hypertensive heart and chronic kidney disease with heart failure and with stage 5 chronic kidney disease, or end stage renal disease (principal); I50.23 Acute on chronic systolic (congestive) heart failure; N17.9 Acute kidney failure, unspecified; I48.20 Chronic atrial fibrillation, unspecified
CPT/HCPCS: G0180

== ENCOUNTER 2025-05-05 14:55 | Outpatient (AMB) | payer MEDICARE, SELFPAY ==
[2022-10-20 12:25] VITALS: BP 116/64; BMI 28.6
[2025-05-05 14:57] VITALS: BP 100/44; PULSE 67; O2SAT 95; BMI 26.0
--- NOTE | 2025-05-05 14:57 | MHC.PC.OV ---
Vital Signs 05/05/25 14:57 Height 5 ft 4 in Weight 151 lb 10.848 oz BMI 26.0 BP 100/44 L Blood Pressure Location Lt brachial Position Sitting Pulse 67 Pulse Source Pulse Oximeter Pulse Oximetry (%) 95 Oxygen Delivery Method Room Air Intake Visit Reasons: left shoulder pain [employer] Required: No Accompanied by: Self / Same As Patient Allergies latex Allergy (Mild, Verified 05/05/25 15:07) rash simvastatin [Simvastatin] Allergy (Mild, Verified 05/05/25 15:07) NAUSEA Medication List - Last Reconciled 05/05/25 by Edwin Allen MD apixaban (Eliquis) 5 mg PO BID atorvastatin 40 mg PO BEDTIME benzonatate 100 mg PO TID PRN calcium carbonate 500 mg PO DAILY furosemide 40 mg See Protocol PO BID@0900,1800 90 days guaifenesin ER (Mucinex) 600 mg PO BID ipratropium-albuterol 0.5 mg-3 mg(2.5 mg base)/3 mL 3 mL inhalation Q4H PRN lisinopril 2.5 mg PO DAILY loratadine 5 mg (1/2 x 10 mg) PO DAILY metoprolol tartrate 25 mg PO BID 90 days multivitamin 1 tab PO DAILY nystatin 1 appl See Protocol topical BID omeprazole 20 mg PO DAILY polyethylene glycol 3350 17 grams PO DAILY PRN Tobacco use date assessed: 05/05/25 Last assessed Fall Risk: 05/05/25 Dental Screening Dental Screen Date: 05/05/25 [facility] Medical History PAD (peripheral artery disease) Mitral valve regurgitation Persistent atrial fibrillation CHF (congestive heart failure) Peripheral vascular disease Essential hypertension Chronic heart failure with preserved ejection fraction Atherosclerotic cardiovascular disease Cognitive impairment Coronary artery disease of bypass graft of [place] heart with stable angina pectoris Subclavian artery stenosis, left Colitis Bilateral femoral artery stenosis Hypercholesterolemia Roger's esophagus Surgical History Status post aorto-coronary artery bypass graft History of coronary artery bypass graft (~06/2020) Family History Father No problems noted. Mother No problems noted. Social History (Reviewed 05/05/25 @ 15:00 by Mile Sandy Household Members: Children Housing: House Do you presently have visiting nurse or other home services: No Alcohol intake: never Comment: 1-2 A year Patient Tobacco Use Status: Former Tobacco user Tobacco use type: Cigarette Years Smoked: quit in 1979 e-Cigarette/Vaping Use: Never Used Second Hand Smoke Exposure: No service: No Current occupational status: retired Cognitive needs: Yes (cane, transport wheelchair, Walker) Hearing needs: No Vision needs: Yes (glasses) Questionnaire PHQ-9 Over the last 2 weeks, how often have you been bothered by any of the following problems? 1. Little interest or pleasure in doing things: several days 2. Feeling down, depressed, or hopeless: several days 3. Trouble falling or staying asleep, or sleeping too much: not at all 4. Feeling tired or having little energy: several days 5. Poor appetite or overeating: several days 6. Feeling bad about yourself - or that you are a failure or have let yourself or your family down: several days 7. Trouble concentrating on things, such as reading the newspaper or watching television: several days 8. Moving or speaking so slowly that other people could have noticed. Or the opposite - being so fidgety or restless that you have been moving around a lot more than usual: several days 9. Thoughts that you would be better off or of hurting yourself in some way: not at all Total score: 7 Depression Screening Interpretation: Positive Depression Screening Done: Yes 50313 - PHQ-9 Billing: Yes Source: Developed by Drs. Deyvi Benson, Linda Jacobo, Silver Narvaez and colleagues, with an educational kelley from [employer]. Thrive Questionnaire Date Thrive assessed: 05/05/25 I am a: Patient What is your living situation today?: I have a steady place to live Within the past 12 months, did the food you bought not last and you didn't have the money to get more?: Never true Within the past 12 months, did you worry whether your food would run out before you got money to buy more?: Sometimes True Do you have trouble paying for medicines?: No Do you have trouble getting transportation to medical appointments?: No Do you have trouble paying your heating and electricity bill?: Yes Do you have trouble taking care of your child, family member or friend?: No Do you have trouble with day-to-day activities such as bathing, preparing meals, shopping, managing finances, etc.?: No Are you currently unemployed and looking for a job?: No Are you interested in more education?: No Please select the resources that you would like help with: None Currently or been in a relationship where the following occur: I choose not to answer THRIVE Score: 2 AUDIT C Alcohol Use Questionnaire (AUDIT-C) 1. How often do you have a drink containing alcohol?: Never Total Score: 0 LEO-7 AMB Questionnaire LEO-7 Date LEO - 7 assessed: 05/05/25 Feeling nervous, anxious, or on edge: 1 = Several days Not being able to stop or control worryin = Several days Worrying too much about different things: 1 = Several days Trouble relaxin = Not at all Being so restless that it is hard to sit still: 0 = Not at all Becoming easily annoyed or irritable: 1 = Several days Feeling afraid as if something awful might happen: 0 = Not at all Total LEO-7 score (0-4 normal; 5-9 mild; 10-14 moderate; 15-21 severe): 4 Source: Developed by Drs. Deyvi Benson, Linda Jacobo, Silver Narvaez and colleagues, with an educational kelley from [employer]. LEO-7 Assessment Billing LEO-7 Assessment Tool: LEO-7 Assessment 92680 Physical exam (Primary Care) Vital Signs: Last Vital Signs Pulse 67 05/05/25 14:57 BP 100/44 L 05/05/25 14:57 Pulse Ox 95 05/05/25 14:57 Oxygen Delivery Method Room Air 05/05/25 14:57 BMI result Body Mass Index 26.0 Tobacco/Smoking Status: Tobacco use Status Tobacco use date assessed 05/05/25 05/05/25 15:08 Patient Tobacco Use Status Former Tobacco user 05/05/25 15:08 Tobacco use type Cigarette 05/05/25 15:08 e-Cigarette/Vaping Use Never Used 05/05/25 15:08 PHQ-9: PHQ-9 Score PHQ-9: Total score 7 05/05/25 15:44 Depression Screening Interpretation: Positive Thrive Assessment: Date of Thrive Assessment Date Thrive assessed 05/05/25 05/05/25 15:08 Currently or been in a relationship where the following occur: I choose not to answer Const General: alert; No acute distress Eyes Conjunctivae: conjunctivae normal Resp Auscultation: clear to auscultation bilaterally Cardio Rate: regular rate Rhythm: regular rhythm GI Inspection: Yes normal to inspection Extrem General: Yes normal to inspection and No edema Immunizations Tenivac (PF) 5 Lf unit-2 Lf unit/0.5 mL intramuscular syringe Performing Provider: Edwin Allen MD Performing Location: [facility] Administered by: Collette Fleming CMA on 05/05/25 15:44 Dose Route Admin Location Dispensed Lot Number Expiration Date [employer] 0.5 mL IM Right Deltoid 0.5 mL [id number] 02/27/27 70877-938-13 [employer] VIS Given Date VIS Provided VIS Publication Date 05/05/25 Single Vaccine 21 Eligibility Eligibility Date Funding Source Not [facility] Eligible 05/05/25 Private Coding Level of Care Code Est Pt Level 4 (34805) Complex EM visit Add On G2211 Diagnoses Chronic heart failure with preserved ejection fraction I50.32 Roger's esophagus without dysplasia K22.70 Roger's esophagus type: without dysplasia Atherosclerotic cardiovascular disease I25.10 Essential hypertension I10 Hypercholesterolemia E78.00 Persistent atrial fibrillation I48.19 PAD (peripheral artery disease) I73.9 CKD (chronic kidney disease) stage 3, GFR 30-59 ml/min N18.30 Shoulder pain, left M25.512 Additional Codes LEO-7 Assessment Billing - LEO-7 Assessment Tool: LEO-7 Assessment 61718 ([id number]) PHQ-9 - 11886 - PHQ-9 Billing: Yes ([id number]) Assessment & Plan Assessment & Plan (1) Chronic heart failure with preserved ejection fraction: Code(s): I50.32 - Chronic diastolic (congestive) heart failure Category: Medical Plan: Weigh daily patient on furosemide 40 mg continue with metoprolol tartrate 25 mg twice a day (2) Roger's esophagus: Comment: low grade dysplasia August 2012, July 2015, September 2017 Code(s): K22.70 - Roger's esophagus without dysplasia Category: Medical Qualifiers: Roger's esophagus type: without dysplasia Qualified Code(s): K22.70 - Rogre's esophagus without dysplasia Plan: Avoid the foods that causes that usually spicy foods, tomato products, juices, coffee, soda and foods that your sensitive to. After eating do not lie down, allow 3-4 hours before in lie down. And keep the head of bed above 30 degrees to avoid the acid from going up. (3) Atherosclerotic cardiovascular disease: Code(s): I25.10 - Atherosclerotic heart disease of [place] coronary artery without angina pectoris Category: Medical Plan: Control the cholesterol, weight, blood pressure, diabetes patient is on anticoagulation with apixaban 5 mg twice a day (4) Essential hypertension: Code(s): I10 - Essential (primary) hypertension Category: Medical Plan: Continue with blood pressure medication. Decrease salt intake and exercise patient on metoprolol 25 mg twice a day lisinopril 2.5 mg once a day (5) Hypercholesterolemia: Code(s): E78.00 - Pure hypercholesterolemia, unspecified Category: Medical Plan: Avoid fried foods, chicken skin, eggs, butter margarine, pastries and meat. Be it pork or beef they have a lot of cholesterol LDL goal of less than 70 and triglyceride of less than 150 patient is taking atorvastatin a 40 mg once a (6) Persistent atrial fibrillation: Code(s): I48.19 - Other persistent atrial fibrillation Category: Medical Plan: Continue with anticoagulation and beta ollie (7) PAD (peripheral artery disease): Comment: 02/2018 - right femoral endarterectomy with thrombectomy.(Dr. Abbasi) [place] Code(s): I73.9 - Peripheral vascular disease, unspecified Category: Medical Plan: Patient follows up with the vascular surgeon (8) CKD (chronic kidney disease) stage 3, GFR 30-59 ml/min: Code(s): N18.30 - Chronic kidney disease, stage 3 unspecified Category: Medical Plan: Keep well hydrated avoid NSAIDs (9) Shoulder pain, left: Code(s): M25.512 - Pain in left shoulder Category: Medical Plan History of Present Illness The patient is an 85-year-old female presenting for a follow-up related to congestive heart failure and acute kidney injury. She has a complex medical history including cognitive impairment, Roger's esophagus, and multiple cardiovascular issues such as heart failure, hypertension, and atrial fibrillation. Each condition requires careful management and close monitoring, especially after her hospitalization for heart failure and kidney injury in February 2025, where she experienced respiratory symptoms and received comprehensive care. Her cardiac interventions include a previous femoral endarterectomy and thrombectomy, indicative of significant peripheral vascular disease. Her laboratory results have addressed anemia and liver function, and cholesterol levels suggest ongoing management with lipid-lowering therapy. Her skin condition over the gluteal area was noted during her hospital stay but does not appear as a primary concern for this visit. Health Maintenance - Discussed the goal of cholesterol management with LDL less than 70 mg/dL. - Emphasized the importance of hydration and avoiding NSAIDs to support renal function. - Continuation of appropriate anticoagulation therapy to prevent thromboembolic events. - Encouraged consistent follow-up with cardiovascular specialists. Social History Review of Systems - Cardiovascular: Reports history of hypertension, atrial fibrillation. - Respiratory: Reports recent hospital stay for congestive heart failure and associated shortness of breath. - Renal: Reports history of chronic kidney disease. Physical Exam Results - Labs: Mild anemia noted in February 2025 bloodwork with hemoglobin at 11.8 g/dL; normal electrolytes; renal function with creatinine at 1.33 mg/dL. - Tests and Diagnostics: Chest X-ray in February 2025 showed interstitial markings with no pneumonia; ankle-brachial index of 1.03 indicative of calcified vessels; LDL from April 2023 at 130 mg/dL. Plan The follow-up visit focused on managing congestive heart failure and the effects of acute kidney injury. The continuation of diuretics and cardiovascular medications is planned. The patient remains on a stable regimen for atrial fibrillation and hypertension, supported by adequate cholesterol control with statins. I advised maintaining hydration, avoiding NSAIDs, and emphasized the significance of comprehensive follow-up care to monitor renal and cardiac health. Her recent labs informed the ongoing management strategy, particularly concerning anemia and vascular findings. Patient was informed and verbally consented to the use of an ambient scribe for clinic note documentation during this visit. Discussion Notes We discussed at length the management strategy for congestive heart failure, with an emphasis on medication adherence to furosemide and metoprolol, which are essential for cardiac function. The risks and benefits of current therapies were reviewed, emphasizing anticoagulation's role in preventing thromboembolic complications due to atrial fibrillation. The necessity of lipid-lowering therapy was reaffirmed, setting an LDL target of less than 70 mg/dL for cardiovascular health. Avoiding NSAIDs was highlighted to protect her renal profile, considering her chronic kidney disease history. We detailed the follow-up protocol with her vascular specialist, particularly after recent surgical interventions. The patient was encouraged to stay well-hydrated, report any worsening symptoms, and adhere to her medication regimen strictly. Patient Instructions - Take furosemide 40 mg as prescribed once daily. - Continue metoprolol tartrate 25 mg twice a day for blood pressure control. - Maintain apixaban 5 mg twice daily for atrial fibrillation. - Take atorvastatin 40 mg daily to manage cholesterol. - Stay well-hydrated and avoid NSAID medications. - Follow up with the vascular surgeon as scheduled. - Monitor for any changes in symptoms or worsening of health. Orders: Orders Free T4 (Free Thyroxine) 3 Months I25.10 - Atherosclerotic heart disease of [place] coronary artery without angina pectoris Lipid Panel 3 Months E78.00 - Pure hypercholesterolemia, unspecified, I25.10 - Atherosclerotic heart disease of [place] coronary artery without angina pectoris Vitamin B12 and Folate 3 Months I25.10 - Atherosclerotic heart disease of [place] coronary artery without angina pectoris B Type Natriuretic Peptide 3 Months I25.10 - Atherosclerotic heart disease of [place] coronary artery without angina pectoris XR shoulder LT min 2V Today M25.512 - Pain in left shoulder Td Immunization Today Z23 - Encounter for immunization Complete Blood Count Auto Diff 3 Months I25.10 - Atherosclerotic heart disease of [place] coronary artery without angina pectoris Comprehensive Met. Panel 3 Months I25.10 - Atherosclerotic heart disease of [place] coronary artery without angina pectoris Thyroid Stimulating Hormone 3 Months I25.10 - Atherosclerotic heart disease of [place] coronary artery without angina pectoris Magnesium 3 Months I25.10 - Atherosclerotic heart disease of [place] coronary artery without angina pectoris UA w Microscopic 3 Months I25.10 - Atherosclerotic heart disease of [place] coronary artery without angina pectoris Medications: Changed From lisinopril 2.5 mg (1/2 x 5 mg) PO DAILY 90 tabs 1RF I10 - Essential (primary) hypertension To lisinopril 2.5 mg PO DAILY 90 tabs 3RF I10 - Essential (primary) hypertension
--- OUTSIDE RECORDS SUMMARY | 2025-05-05 14:57 | XMS_ITS | Clinical Summary ---
Author Organization [facility] Address [address] [place] [address] Phone Care Team Providers Care Bagel Maker Name Role Phone Edwin Allen MD Primary Care Provider [phone] Allergies Active Allergy Reactions Criticality Noted Date [...] inactivated after the 08/30/24 Regulatory Import Immunizations Immunization Administration Dates Next Due Pneumococcal Polysaccharide 02/10/2014 [...] Due Date Last Done Comments Pneumococcal Vaccine: 50+ Ye ars (2 of 2 - PCV) 02/10/2015 02/10/2014 Influenza Vaccine (Season Ended) 2025 Pneumococcal Vaccine: Peds ( 0 to 5 Years) and At-Risk Patients (6 to 49 Years) Discontinued 02/10/2014 Hepatitis B Vaccine Aged Out No longe r eligible based on patient's age to complete this topic Insurance Medicare Medicare Care Teams Bagel Maker Relationship Specialty Start Date End Date Edwin Allen MD [id number] [place], [place] PCP - General 12/10/20
== END 2025-05-05 15:45 | disposition home or self-care (01) ==
LOC: HO.HMCH 14:56
PROVIDERS: PCP Internal Medicine; Visit Provider Internal Medicine
DX: I12.9 Hypertensive chronic kidney disease with stage 1 through stage 4 chronic kidney disease, or unspecified chronic kidney disease (principal); I50.32 Chronic diastolic (congestive) heart failure; I48.19 Other persistent atrial fibrillation; N18.30 Chronic kidney disease, stage 3 unspecified; K22.70 Barrett's esophagus without dysplasia; I25.10 Atherosclerotic heart disease of native coronary artery without angina pectoris; E78.00 Pure hypercholesterolemia, unspecified; I73.9 Peripheral vascular disease, unspecified; M25.512 Pain in left shoulder; Z23 Encounter for immunization

== ENCOUNTER → 2025-05-05 14:55 | Outpatient (BNVA) | payer MEDICARE, SELFPAY ==
[2022-10-20 12:25] VITALS: BP 116/64; BMI 28.6
== END ==
PROVIDERS: PCP Internal Medicine; Visit Provider Internal Medicine
DX: Z13.89 Encounter for screening for other disorder (principal)
CPT/HCPCS: 90471; 90714; 96127; 99212

== ENCOUNTER 2025-05-05 15:58 | Outpatient (REF) | payer MEDICARE, SELFPAY ==
[2022-10-20 12:25] VITALS: BP 116/64; BMI 28.6
--- NOTE | ~2025-05-05 | XR_ITS ---
EXAMINATION: XR SHOULDER, LEFT CLINICAL INFORMATION: M25.512 - Pain in left shoulder COMPARISON: None available. TECHNIQUE: AP external rotation, Grashey, scapular Y views of the left shoulder. FINDINGS: There is low bone mineral density. The AC joint is intact with mild hypertrophy. There is faint calcific density in the superior, coracoclavicular ligament. Focal tear-shaped ossification is present anterior to the coracoid process. There is no dislocation. Surgical clips project over the left upper lung. These are larger intact. Left hilar surgical clips are noted. Linear atelectasis or scarring projects from the left hilum. XR/XR shoulder LT min 2V IMPRESSION: Focal calcification near the tip of coronoid process is probably related to calcific tendinitis. Mild AC joint arthropathy. Low bone mineral density. Electronically signed by: Sammy Magana MD 05/05/2025 06:06 PM EDT
== END 2025-05-05 15:59 | disposition home or self-care (01) ==
LOC: HO.XRAY 15:58
PROVIDERS: PCP Internal Medicine; Visit Provider Internal Medicine
DX: M25.512 Pain in left shoulder (principal); Z23 Encounter for immunization; I13.0 Hypertensive heart and chronic kidney disease with heart failure and stage 1 through stage 4 chronic kidney disease, or unspecified chronic kidney disease; I50.32 Chronic diastolic (congestive) heart failure; N18.30 Chronic kidney disease, stage 3 unspecified; K22.70 Barrett's esophagus without dysplasia; I25.10 Atherosclerotic heart disease of native coronary artery without angina pectoris; E78.00 Pure hypercholesterolemia, unspecified; I48.19 Other persistent atrial fibrillation; I73.9 Peripheral vascular disease, unspecified; Z79.01 Long term (current) use of anticoagulants; Z79.899 Other long term (current) drug therapy
CPT/HCPCS: 73030; 90471; 90714; 96127; 99212

== ENCOUNTER → 2025-05-05 16:00 | Outpatient (BNV) | payer MEDICARE, SELFPAY ==
[2022-10-20 12:25] VITALS: BP 116/64; BMI 28.6
== END ==
PROVIDERS: PCP Internal Medicine; Visit Provider Radiology Diagnostic Radiology
DX: M85.812 Other specified disorders of bone density and structure, left shoulder (principal); M61.412 Other calcification of muscle, left shoulder
CPT/HCPCS: 73030

== ENCOUNTER 2025-05-11 11:06 | Outpatient (AMB) | payer MEDICARE, SELFPAY ==
[2022-10-20 12:25] VITALS: BP 116/64; BMI 28.6
--- NOTE | 2025-05-11 11:12 | MHC.OFFVIS ---
Vital Signs 05/11/25 11:14 Height 5 ft 4 in Weight 148 lb BMI 25.4 BP 110/60 Blood Pressure Location Rt brachial Position Sitting Pulse 72 Pulse Source Monitor Intake Visit Reasons: 1 yr f/up Roof Tile Layer Required: No Accompanied by: Daughter Allergies latex Allergy (Mild, Verified 05/05/25 15:07) rash simvastatin [Simvastatin] Allergy (Mild, Verified 05/05/25 15:07) NAUSEA Medication List - Last Reconciled 05/11/25 by Emory Hargrove MD apixaban (Eliquis) 5 mg PO BID atorvastatin 40 mg PO BEDTIME benzonatate 100 mg PO TID PRN calcium carbonate 500 mg PO DAILY furosemide 40 mg See Protocol PO BID@0900,1800 90 days guaifenesin ER (Mucinex) 600 mg PO BID ipratropium-albuterol 0.5 mg-3 mg(2.5 mg base)/3 mL 3 mL inhalation Q4H PRN lisinopril 2.5 mg PO DAILY loratadine 5 mg (1/2 x 10 mg) PO DAILY metoprolol tartrate 25 mg PO BID 90 days multivitamin 1 tab PO DAILY nystatin 1 appl See Protocol topical BID omeprazole 20 mg PO DAILY polyethylene glycol 3350 17 grams PO DAILY PRN HPI Comments Details: Bethany returns for follow-up. Has a history of coronary disease, history of coronary artery bypass surgery, chronic heart failure with preserved ejection fraction as well as chronic mitral regurgitation. Daughter states that she is generally doing okay. No clear-cut complaints like angina or shortness of breath or in fact anything along those lines. There was one hospitalization for congestive heart failure but seems to have recovered from that. Ongoing memory issues and she is mostly home. Minimal activity at baseline. [facility] Medical History PAD (peripheral artery disease) Mitral valve regurgitation Persistent atrial fibrillation CHF (congestive heart failure) Peripheral vascular disease Essential hypertension Chronic heart failure with preserved ejection fraction Atherosclerotic cardiovascular disease Cognitive impairment Coronary artery disease of bypass graft of [place] heart with stable angina pectoris Subclavian artery stenosis, left Colitis Bilateral femoral artery stenosis Hypercholesterolemia Roger's esophagus Surgical History Status post aorto-coronary artery bypass graft History of coronary artery bypass graft (~06/2020) Family History Father No problems noted. Mother No problems noted. Social History Household Members: Children Housing: House Do you presently have visiting nurse or other home services: No Alcohol intake: never Comment: 1-2 A year Patient Tobacco Use Status: Former Tobacco user Tobacco use type: Cigarette Years Smoked: quit in 1979 e-Cigarette/Vaping Use: Never Used Second Hand Smoke Exposure: No service: No Current occupational status: retired Cognitive needs: Yes (cane, transport wheelchair, Walker) Hearing needs: No Vision needs: Yes (glasses) Review of Systems Const Denies chills, Denies fatigue, Denies fever(s), Denies frequent falls, Denies weakness, Denies weight gain and Denies weight loss ENT Denies dizziness Card Denies chest pain, Denies leg edema, Denies lightheadedness, Denies palpitations, Denies dyspnea and Denies dyspnea on exertion Resp Denies cough, Denies dyspnea and Denies dyspnea on exertion GI Denies hematochezia Musc Denies abnormal gait, Denies muscle weakness, Denies numbness, Denies radiating pain into limb and Denies tingling Neuro Denies abnormal gait, Denies dizziness, Denies frequent falls, Denies numbness, Denies tingling and Denies weakness Endo Denies fatigue and Denies palpitations Physical Exam Vital Signs: Last Vital Signs Pulse 72 05/11/25 11:14 BP 110/60 05/11/25 11:14 BMI result Body Mass Index 25.4 Const General: comfortable and no acute distress Orientation/consciousness: patient oriented x3 HEENT Other: Unremarkable Head: Yes normal to inspection Neck Neck: Yes normal visual inspection Chest Chest palpation & inspection: normal inspection of the chest Resp Auscultation: clear to auscultation bilaterally Cardio Palpation: normal PMI Heart sounds: S1 normal heart sound present, S2 normal heart sound present, no gallops, Murmur heart sound present systolic II/ and at the apex and no rubs GI Palpation (GI): Soft to palpation Back/Spine/Pelvis Other: unremarkable Skin General skin exam: no rashes or lesions noted Neuro General: patient oriented x3 Extrem General: Yes normal to inspection Psych Mental Status: mental status grossly normal Office Procedures EKG Details: EKG with atrial fibrillation at a rate of 72/Min; leftward axis; old anteroseptal infarct. [id number]-[id number], Complete Assessment & Plan Assessment & Plan (1) Chronic heart failure with preserved ejection fraction: Code(s): I50.32 - Chronic diastolic (congestive) heart failure Category: Medical Plan: Continue diuretics. We discussed about adding other medications like Jardiance or Farxiga but they would like to just not take anymore meds. (2) Atherosclerotic cardiovascular disease: Code(s): I25.10 - Atherosclerotic heart disease of [place] coronary artery without angina pectoris Category: Medical Plan: Stable. Clinically, no angina. Continue beta-blockers and statins. (3) Status post aorto-coronary artery bypass graft: Code(s): Z95.1 - Presence of aortocoronary bypass graft Category: Surgical Plan: Status post CABG x2; fung to LAD and SVG to OM2- 2020. (4) Persistent atrial fibrillation: Code(s): I48.19 - Other persistent atrial fibrillation Category: Medical Plan: Remains on anticoagulation. She is also status post left atrial appendage ligation with atrial clip during CABG. (5) Non-rheumatic mitral regurgitation: Code(s): I34.0 - Nonrheumatic mitral (valve) insufficiency Category: Medical Plan: Last echocardiogram with severe mitral calcification with severe mitral regurgitation. She is not a surgical candidate. (6) Essential hypertension: Code(s): I10 - Essential (primary) hypertension Category: Medical Plan: Stable. No changes. (7) Peripheral vascular disease: Code(s): I73.9 - Peripheral vascular disease, unspecified Category: Medical Plan: History of ischemic right leg treated at [facility]. Used to see vascular surgery in [place] in the past, where she has undergone other procedures. No major recent issues. Plan Discussion Notes Reviewed with the patient and family the recent heart failure episode and hospitalization details. Explained fluid dynamics involving heart function and lung fluid backup risks, aiding family understanding of her condition. Medications deemed efficacious, maintaining the current regimen unless emergent conditions suggest otherwise. Discussed no immediate changes necessary, addressing any potential medication shifts only with indication. Reinforced regular monitoring of weight using their new scale and adherence to present care plan with available support from family and visiting health professionals. Scheduled routine follow-up frequency maintained to ensure continued cardiovascular stability and functional capacity evaluation. Patient was informed and verbally consented to the use of an ambient scribe for clinic note documentation during this visit. Patient Instructions: - Continue taking all prescribed medications as directed. - Engage in daily physical therapy supported by family. - Monitor weight regularly and report significant changes. - Maintain diet and hydration as tolerated. - Watch for symptoms of fluid retention, such as shortness of breath, and contact us if these arise. - Arrange follow-up in six months or sooner if condition changes. Coding Level of Care Code Est Pt Level 4 (75417) Complex EM visit Add On G2211 Diagnoses Chronic heart failure with preserved ejection fraction I50.32 Atherosclerotic cardiovascular disease I25.10 Status post aorto-coronary artery bypass graft Z95.1 Persistent atrial fibrillation I48.19 Non-rheumatic mitral regurgitation I34.0 Essential hypertension I10 Peripheral vascular disease I73.9 CPT Codes EKG - CPT: 23999-[id number], Complete ([id number])
[2025-05-11 11:14] VITALS: BP 110/60; PULSE 72; BMI 25.4
--- OUTSIDE RECORDS SUMMARY | 2025-05-11 13:02 | XMS_ITS | Clinical Summary ---
Author Organization [facility] Address [address] [place] [address] Phone Care Team Providers Care Surg Physician Asst Name Role Phone Edwin Allen MD Primary Care Provider [phone] Allergies Active Allergy Reactions Criticality Noted Date [...] this topic Insurance Medicare Medicare Care Teams Surg Physician Asst Relationship Specialty Start Date End Date Edwin Allen MD [address] [place], [place] PCP - General 12/10/20
== END 2025-05-11 13:47 | disposition home or self-care (01) ==
LOC: HO.HCS 11:07
PROVIDERS: PCP Internal Medicine; Visit Provider Internal Medicine
DX: I50.32 Chronic diastolic (congestive) heart failure (principal); I25.10 Atherosclerotic heart disease of native coronary artery without angina pectoris; Z95.1 Presence of aortocoronary bypass graft; I48.19 Other persistent atrial fibrillation; I34.0 Nonrheumatic mitral (valve) insufficiency; I10 Essential (primary) hypertension; I73.9 Peripheral vascular disease, unspecified
CPT/HCPCS: 93010; 99214; G2211

== ENCOUNTER → 2025-05-11 11:06 | Outpatient (BNVA) | payer MEDICARE, SELFPAY ==
[2022-10-20 12:25] VITALS: BP 116/64; BMI 28.6
== END ==
PROVIDERS: PCP Internal Medicine; Visit Provider Internal Medicine
DX: I11.0 Hypertensive heart disease with heart failure (principal); I50.32 Chronic diastolic (congestive) heart failure; I25.10 Atherosclerotic heart disease of native coronary artery without angina pectoris; I48.19 Other persistent atrial fibrillation; I34.0 Nonrheumatic mitral (valve) insufficiency; I73.9 Peripheral vascular disease, unspecified; Z95.1 Presence of aortocoronary bypass graft; R94.31 Abnormal electrocardiogram [ECG] [EKG]
CPT/HCPCS: 93005; 99212

== ENCOUNTER 2025-06-26 13:09 | Outpatient (AMB) | payer MEDICARE, SELFPAY ==
[2022-10-20 12:25] VITALS: BP 116/64; BMI 28.6
--- NOTE | 2025-06-26 13:19 | A.OFFVIS_ITS ---
Vital Signs 06/26/25 13:20 Height 5 ft 4 in Weight 148 lb BMI 25.4 Intake Visit Reasons: Left shoulder pain and weakness Intake Note: Bethany is a 85 year old female right hand dominant who presents with complaints of progressively worsening left shoulder pain and weakness. The patient states that she injured her shoulder several years ago when she fell while walking acr oss the street and dislocated her left shoulder. The patient underwent a closed reduction at that time. She did not have surgery. She did go to physical therapy which increased her range of motion slightly. She has tried Tylenol which gives only mild relief. She is not able to take anti-inflammatory medicines because she is on Eliquis. She reports difficulty lifting her left hand above shoulder height. Allergies latex Allergy (Mild, Verified 06/26/25 13:24) rash simvastatin (Simvastatin) Allergy (Mild, Verified 06/26/25 13:24) NAUSEA Medication List - Last Reconciled 06/26/25 by Elvis Peck MD apixaban (Eliquis) 5 mg PO BID atorvastatin 40 mg PO BEDTIME benzonatate 100 mg PO TID PRN calcium carbonate 500 mg PO DAILY furosemide 40 mg See Protocol PO BID@0900,1800 90 days guaifenesin ER (Mucinex) 600 mg PO BID ipratropium-albuterol 0.5 mg-3 mg(2.5 mg base)/3 mL 3 mL inhalation Q4H PRN lisinopril 2.5 mg PO DAILY loratadine 5 mg (1/2 x 10 mg) PO DAILY metoprolol tartrate 25 mg PO BID 90 days multivitamin 1 tab PO DAILY nystatin 1 appl See Protocol topical BID omeprazole 20 mg PO DAILY PFSH Medical History (Reviewed 05/11/25 @ 11:16 by Silvia Reese [facility]) PAD (peripheral artery disease) Mitral valve regurgitation Persistent atrial fibrillation CHF (congestive heart failure) Peripheral vascular disease Essential hypertension Chronic heart failure with preserved ejection fraction Atherosclerotic cardiovascular disease Cognitive impairment Coronary artery disease of bypass graft of [place] heart with stable angina pectoris Subclavian artery stenosis, left Colitis Bilateral femoral artery stenosis Hypercholesterolemia Roger's esophagus Surgical History Status post aorto-coronary artery bypass graft History of coronary artery bypass graft (~06/2020) Family History Father No problems noted. Mother No problems noted. Social History (Reviewed 05/11/25 @ 11:16 by Silvia Reese [facility]) Household Members: Children Housing: House Do you presently have visiting nurse or other home services: No Alcohol intake: never Comment: 1-2 A year Patient Tobacco Use Status: Former Tobacco user Tobacco use type: Cigarette Years Smoked: quit in 1979 e-Cigarette/Vaping Use: Never Used Second Hand Smoke Exposure: No service: No Current occupational status: retired Cognitive needs: Yes (cane, transport wheelchair, Walker) Hearing needs: No Vision needs: Yes (glasses) Physical Exam Vital Signs: BMI result Body Mass Index 25.4 Const Other: Well-nourished well-developed very friendly female awake alert and oriented x3 in no acute distress Extrem Other: Left shoulder examination shows decreased range of motion when compared to her right shoulder, 3/5 strength with supraspinatus testing, positive impingement signs Office Procedures AMB Joint Injection/Aspiration Joint Injection/Aspiration Primary Site: left shoulder Prep: site was prepped using aseptic technique Injected: 40 mg of, DepoMedrol and 1% plain lidocaine Procedure: The patient tolerated the procedure well Coding 25850 - Large joint Procedure code (CPT) selection complete Results Reviewed Results Reviewed: X-rays of the patient's left shoulder show severe acromioclavicular joint narrowing, a type 2 acromion, no acute bony abnormalities Assessment & Plan Assessment & Plan (1) Rotator cuff insufficiency of left shoulder: Code(s): M25.312 - Other instability, left shoulder Category: Medical Plan Ms. Brooke presents with left shoulder pain and weakness due to impingement syndrome and most likely a full-thickness rotator cuff tear. The risks and benefits of a left shoulder cortisone injection were discussed at length with the patient. The patient wished to proceed. She tolerated the injection well. I will also send the patient for an MRI of her left shoulder to further evaluate the status of her rotator cuff tendons. I will see her back once the MRI is available. Feel free to call me at any time should questions regarding her orthopedic management arise. Thank you very much for asking me to see this very friendly patient. I spent 22 minutes in reviewing the patient's records and imaging studies, seeing the patient and documenting in the medical record. Orders: Orders MR shoulder LT wo con 06/27/25 M25.312 - Other instability, left shoulder AMB Joint Injection/Aspiration Today M25.312 - Other instability, left shoulder Coding Level of Care Code New Pt Level 3 (87142) Complex EM visit Add On G2211 Diagnoses Rotator cuff insufficiency of left shoulder M25.312 CPT Codes Coding - 45582 Large joint: 15631 - Large joint ([id number])
[2025-06-26 13:20] VITALS: BMI 25.4
--- OUTSIDE RECORDS SUMMARY | 2025-06-26 13:52 | XMS_ITS | Encounter Summary ---
Author Organization [facility] Address [address] [place] [address] [place] [phone] Phone Care Team Providers Care Impression Printer Name Role Phone Edwin Allen MD Primary Care Provider [phone] Encounter Details Date Type Department Care Team (Late st Contact Info) Description 08/12/2018 Ancillary Orders Arcenio Wolf MD - [facility] [address] [address] Arcenio Wolf MD, RY [address] [place] [address], [address] [place] [address] [email or web address] Atherosclerosis of [place] artery of both lower extremities with intermittent claudication; PAD (peripheral artery disease) Social History Tobacco Use Types Packs/Day Years Used Date Smoking Tobacco: Never Smokeless Tobacco: Never Comments Unknown Sex and Gender Information Value Date Recorded Sex Assigned at Not on file Legal Sex Female 6:00 PM EST Gender Identity Not on file Sexual Orientation Not on file documented as of this encounter Functional Status * Patient is deaf or has serious difficulty with hearing Answer Date of Assessment Author No 06/30/2017 12:11 PM Lanette Macario NP * Patient is blind or has serious difficulty with seeing, even when wearing glasses Answer Date of Assessment Author No 06/30/2017 12:11 PM Lanette Macario NP * Patient has serious difficulty walking or climbing stairs (5yr old or older) Answer Date of Assessment Author No 06/30/2017 12:11 PM JIMMYT Lanette Herbert NP * Patient has serious difficulty dressing or bathing (5yr old or older) Answer Date of Assessment Author No 06/30/2017 12:11 PM EDT Lanette Herbert NP * Patient has serious difficulty doing errands alone such as visiting a doctor???s office or shopping, due to physical, mental, or emotional condition (15 years old or older) Answer Date of Assessment Author No 06/30/2017 12:11 PM EDT Lanette Herbert NP documented as of this encounter Mental Status * Patient has serious difficulty concentrating, remembering, or making decisions due to physical, mental, or emotional condition Answer Entry Date Author No 06/30/2017 12:11 PM Lanette Macario NP documented in this encounter Plan of Treatment Not on file documented as of this encounter Visit Diagnoses Diagnosis Atherosclerosis of [place] artery of both lower extremities with intermittent claudication PAD (peripheral artery disease) Unspecified peripheral vascular disease documented in this encounter Care Teams Impression Printer Relationship Specialty Start Date End Date Edwin Allen MD [address] [place] [address] [place] [phone] PCP - General 05/30/14 documented as of this encounter Additional Source Comments The information contained in this document represents components of the legal health record. It is not the complete legal health record.[facility]
--- OUTSIDE RECORDS SUMMARY | 2025-06-26 13:52 | XMS_ITS | Encounter Summary ---
Author Organization [facility] Address [address] [place] [phone] Care Team Providers Care Garage Helper Name Role Phone Edwin Allen MD Primary Care Provider [phone] Encounter Details Date Type Department Care Team (Late st Contact Info) Description 03/31/2025 Lab Requisition [facility] - Main Lab [address] [facility] [place] [phone] Peg Yañez MD [address] [place] [address] Heart failure, unspecified (CMS/HCC V24, CMS/HCC V28) Social History Tobacco Use Types Packs/Day Years Used Date Smoking Tobacco: Former Smokeless Tobacco: Never Comments Unknown Sex and Gender Information Value Date Recorded Sex Assigned at Not on file Legal Sex Female 11:19 PM EST Gender Identity Not on file Sexual Orientation Not on file documented as of this encounter Plan of Treatment Upcoming Encounters Date Type Department Care Team (Late Contact Info) Description 07/03/2025 1:00 PM EDT Office Visit Orthopedic Surgery - [facility] [address] [facility] [address] [place] [phone] Arcenio Jordan DPM [address] [facility] [address] [place] [address] documented as of this encounter Visit Diagnoses Diagnosis Heart failure, unspecified (CMS/HCC V24, CMS/HCC V28) Heart failure, unspecified documented in this encounter Care Teams Garage Helper Relationship Specialty Start Date End Date Edwin Allen MD [address] [place] [address] [address] [facility] [place] [address] PCP - General Internal Medicine 10/26/18 documented as of this encounter
--- OUTSIDE RECORDS SUMMARY | 2025-06-26 13:52 | XMS_ITS | Clinical Summary ---
Author Organization [facility] Address [address] [place] [address] Phone Care Team Providers Care Night Baker Name Role Phone Edwin Allen MD Primary Care Provider [phone] Allergies Active Allergy Reactions Criticality Noted Date [...] - PCV) 02/10/2015 02/10/2014 Influenza Vaccine (#1) 2025 Pneumococcal Vaccine: Peds ( 0 to 5 Years) and At-Risk Patients (6 to 49 Years) Discontinued 02/10/2014 Hepatitis B Vaccine Aged Out No longe r eligible based on patient's age to complete this topic Insurance Medicare Medicare Care Teams Night Baker Relationship Specialty Start Date End Date Edwin Allen MD [address] [place] PCP - General 12/10/20
== END 2025-06-26 13:52 | disposition home or self-care (01) ==
LOC: HO.HOS 13:10
PROVIDERS: PCP Internal Medicine; Visit Provider Orthopaedic Surgery
DX: M25.312 Other instability, left shoulder (principal)
CPT/HCPCS: 20610; 99203

== ENCOUNTER → 2025-06-26 13:09 | Outpatient (BNVA) | payer MEDICARE, SELFPAY ==
[2022-10-20 12:25] VITALS: BP 116/64; BMI 28.6
== END ==
PROVIDERS: PCP Internal Medicine; Visit Provider Orthopaedic Surgery
DX: M25.512 Pain in left shoulder (principal); M25.312 Other instability, left shoulder
CPT/HCPCS: 20610; 99202; J1010; J2003

== ENCOUNTER 2025-07-12 12:38 | Outpatient (AMB) | payer MEDICARE, SELFPAY ==
[2022-10-20 12:25] VITALS: BP 116/64; BMI 28.6
--- NOTE | 2025-07-12 12:38 | MHC.PC.OV ---
Intake Visit Reasons: 3 Month Follow Up Fuselage Framer Required: No Stitch Wheeler: Present Accompanied by: Daughter Allergies latex Allergy (Mild, Verified 07/12/25 12:39) rash simvastatin (Simvastatin) Allergy (Mild, Verified 07/12/25 12:39) NAUSEA Medication List - Last Reconciled 07/12/25 by Edwin Allen MD apixaban (Eliquis) 5 mg PO BID atorvastatin 40 mg PO BEDTIME calcium carbonate 500 mg PO DAILY cholecalciferol (vitamin D3) 25 mcg PO DAILY furosemide 40 mg See Protocol PO BID@0900,1800 90 days lisinopril 2.5 mg PO DAILY metoprolol tartrate 25 mg PO BID 90 days multivitamin 1 tab PO DAILY nystatin 1 appl See Protocol topical BID omeprazole 20 mg PO DAILY Tobacco use date assessed: 05/05/25 Fall risk assessment: No Falls in past year Last assessed Fall Risk: 07/12/25 Dental Screening Dental Screen Date: 05/05/25 [facility] Medical History (Updated 07/12/25 @ 12:50 by Edwin Allen MD) Non-rheumatic mitral regurgitation CHF exacerbation Acute exacerbation of chronic heart failure Mitral valve regurgitation PAD (peripheral artery disease) Persistent atrial fibrillation CHF (congestive heart failure) Peripheral vascular disease Essential hypertension Chronic heart failure with preserved ejection fraction Atherosclerotic cardiovascular disease Cognitive impairment Coronary artery disease of bypass graft of [place] heart with stable angina pectoris Subclavian artery stenosis, left Colitis Bilateral femoral artery stenosis Hypercholesterolemia Roger's esophagus Surgical History Status post aorto-coronary artery bypass graft History of coronary artery bypass graft (~06/2020) Family History Father No problems noted. Mother No problems noted. Social History Household Members: Children Housing: House Do you presently have visiting nurse or other home services: No Alcohol intake: never Comment: 1-2 A year Patient Tobacco Use Status: Former Tobacco user Tobacco use type: Cigarette Years Smoked: quit in 1979 e-Cigarette/Vaping Use: Never Used Second Hand Smoke Exposure: No service: No Current occupational status: retired Cognitive needs: Yes (cane, transport wheelchair, Walker) Hearing needs: No Vision needs: Yes (glasses) Questionnaire Thrive Questionnaire Date Thrive assessed: 05/05/25 I am a: Patient What is your living situation today?: I have a steady place to live Within the past 12 months, did the food you bought not last and you didn't have the money to get more?: Never true Within the past 12 months, did you worry whether your food would run out before you got money to buy more?: Sometimes True Do you have trouble paying for medicines?: No Do you have trouble getting transportation to medical appointments?: No Do you have trouble paying your heating and electricity bill?: Yes Do you have trouble taking care of your child, family member or friend?: No Do you have trouble with day-to-day activities such as bathing, preparing meals, shopping, managing finances, etc.?: No Are you currently unemployed and looking for a job?: No Are you interested in more education?: No Please select the resources that you would like help with: None Currently or been in a relationship where the following occur: I choose not to answer THRIVE Score: 2 AUDIT C Alcohol Use Questionnaire (AUDIT-C) 2. How many drinks containing alcohol do you have on a typical day when you are drinking?: 1 or 2 3. How often do you have six or more drinks on one occasion?: Never Total Score: 0 LEO-7 AMB Questionnaire LEO-7 Date LEO - 7 assessed: 05/05/25 Source: Developed by Drs. Deyvi Benson, Linda Jacobo, Silver Narvaez and colleagues, with an educational kelley from [employer]. Physical exam (Primary Care) Tobacco/Smoking Status: Tobacco use Status Tobacco use date assessed 05/05/25 07/12/25 12:43 Patient Tobacco Use Status Former Tobacco user 07/12/25 12:43 Tobacco use type Cigarette 07/12/25 12:43 e-Cigarette/Vaping Use Never Used 07/12/25 12:43 Thrive Assessment: Date of Thrive Assessment Date Thrive assessed 05/05/25 07/12/25 12:43 Currently or been in a relationship where the following occur: I choose not to answer Telehealth Telehealth Telehealth Platform: [employer] Location of provider rendering services: practice address Location of patient: address on file Patient Identification confirmed using: Name, : Yes Telehealth method: video Patient verbally consented to treatment: Yes Patient verbally consented to billing insurance company: Yes Patient informed of any privacy concerns related to visit: Yes Minutes spent on Phone/Video with Pt.: 25 Coding Level of Care Code Tele Est Pt Level 4 (49154) Diagnoses Essential hypertension I10 Chronic heart failure with preserved ejection fraction I50.32 Severe mitral valve regurgitation I34.0 Atherosclerotic cardiovascular disease I25.10 Persistent atrial fibrillation I48.19 PAD (peripheral artery disease) I73.9 Hypercholesterolemia E78.00 Roger's esophagus without dysplasia K22.70 Roger's esophagus type: without dysplasia CKD (chronic kidney disease) stage 3, GFR 30-59 ml/min N18.30 Anemia, unspecified type D64.9 Anemia type: unspecified type 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 Decrease salt intake and exercise patient is on lisinopril 2.5 mg once a day metoprolol 25 mg twice a day (2) Chronic heart failure with preserved ejection fraction: Code(s): I50.32 - Chronic diastolic (congestive) heart failure Category: Medical Plan: Continuing with diuretic discussed about doing blood work (3) Severe mitral valve regurgitation: Code(s): I34.0 - Nonrheumatic mitral (valve) insufficiency Category: Medical Plan: Patient is not a surgical candidate continue to monitor (4) Atherosclerotic cardiovascular disease: Code(s): I25.10 - Atherosclerotic heart disease of [place] coronary artery without angina pectoris Category: Medical Plan: Control the cholesterol, weight, blood pressure, patient on anticoagulation with Eliquis advised to get blood work done (5) Persistent atrial fibrillation: Code(s): I48.19 - Other persistent atrial fibrillation Category: Medical Plan: Continue with anticoagulation and when metoprolol (6) PAD (peripheral artery disease): Comment: 02/2018 - right femoral endarterectomy with thrombectomy.(Dr. Bonnie Ervin Code(s): I73.9 - Peripheral vascular disease, unspecified Category: Medical Plan: Continue to follow up with vascular. On anticoagulation (7) Hypercholesterolemia: Code(s): E78.00 - Pure hypercholesterolemia, unspecified Category: Medical Plan: Avoid fried foods, chicken skin, eggs, butter margarine, pastries and meat. Be it pork or beef they have a lot of cholesterol on atorvastatin. LDL goal of less than 70 and triglyceride of less than 150 (8) Roger's esophagus: Comment: low grade dysplasia August 2012, July 2015, September 2017 Code(s): K22.70 - Roger's esophagus without dysplasia Category: Medical Qualifiers: Roger's esophagus type: without dysplasia Qualified Code(s): K22.70 - Roger's esophagus without dysplasia Plan: Avoid the foods that causes that usually spicy foods, tomato products, juices, coffee, soda and foods that your sensitive to. After eating do not lie down, allow 3-4 hours before in lie down. And keep the head of bed above 30 degrees to avoid the acid from going up. (9) CKD (chronic kidney disease) stage 3, GFR 30-59 ml/min: Code(s): N18.30 - Chronic kidney disease, stage 3 unspecified Category: Medical Plan: Continue to monitor. Avoid NSAIDs (10) Anemia: Code(s): D64.9 - Anemia, unspecified Category: Medical Qualifiers: Anemia type: unspecified type Qualified Code(s): D64.9 - Anemia, unspecified Plan: Continue to monitor. Stable (11) Rotator cuff insufficiency of left shoulder: Code(s): M25.312 - Other instability, left shoulder Category: Medical Plan: Patient is being followed up by orthopedics and planned MRI as well as injections Plan History of Present Illness The patient is an 85-year-old female presenting for a follow-up visit via telehealth. She has a history of cognitive impairment, Roger's esophagus, congestive heart failure, coronary artery disease, hypertension, hypercholesterolemia, atrial fibrillation, peripheral arterial disease, and chronic kidney disease. The patient reports left shoulder pain and is being followed by orthopedics for rotator cuff insufficiency due to impingement syndrome, with concerns about a full-thickness tear. An MRI and possible injections have been discussed as part of her management plan. She also has calcific tendinitis of the right shoulder, confirmed by X-ray. The patient follows up with cardiology for coronary artery disease and severe mitral regurgitation, for which she is not a surgical candidate. She continues on anticoagulation therapy and is advised to get regular blood work done. Her blood work from February 2025 showed stable anemia with a hemoglobin level of 11.8 g/dL, normal electrolytes, and a creatinine level of 1.3 mg/dL indicating stable renal function. The patient is on lisinopril, metoprolol, and a diuretic for blood pressure management. Her cholesterol management includes atorvastatin with an LDL goal of less than 70 mg/dL and triglycerides less than 150 mg/dL. She is advised to avoid NSAIDs due to her reflux condition and to continue monitoring her condition. Review of Systems - Musculoskeletal: Reports left shoulder pain, right shoulder pain - Cardiovascular: Reports severe mitral regurgitation, denies chest pain - Gastrointestinal: Denies NSAID use due to reflux Plan The patient will continue with her current medications, including lisinopril, metoprolol, and a diuretic for hypertension management. Her cholesterol management will continue with atorvastatin, aiming for an LDL goal of less than 70 mg/dL and triglycerides less than 150 mg/dL. For her left shoulder pain due to rotator cuff insufficiency, she will follow up with orthopedics for an MRI and possible injections. The right shoulder calcific tendinitis will be monitored, and she will continue with her current treatment plan. The patient will continue anticoagulation therapy with Eliquis for her atrial fibrillation and severe mitral regurgitation, and regular blood work will be conducted to monitor her condition. She is advised to avoid NSAIDs due to her reflux condition and to continue monitoring her condition. Patient was informed and verbally consented to the use of an ambient scribe for clinic note documentation during this visit. Discussion Notes During the visit, I discussed the importance of continuing her current medication regimen, including lisinopril, metoprolol, and atorvastatin, to manage her hypertension and hypercholesterolemia. We also reviewed the plan for her left shoulder pain, which includes an MRI and possible injections, and emphasized the need for regular follow-up with orthopedics. I advised her to avoid NSAIDs due to her reflux condition and to continue monitoring her symptoms. Patient Instructions - Continue taking lisinopril, metoprolol, and atorvastatin as prescribed. - Follow up with orthopedics for MRI and possible injections for left shoulder pain. - Avoid NSAIDs to prevent worsening of reflux symptoms. - Schedule regular blood work to monitor health conditions. Medications: Refilled omeprazole 20 mg PO DAILY 180 caps 2RF omeprazole 20 mg PO DAILY 180 caps 2RF
--- OUTSIDE RECORDS SUMMARY | 2025-07-12 13:12 | XMS_ITS | Patient Health Record ---
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
--- OUTSIDE RECORDS SUMMARY | 2025-07-12 13:12 | XMS_ITS | Encounter Summary ---
Author Organization [facility] Address [address] [place] [address] Care Team Providers Care Floral Associate Name Role Phone Edwin Allen MD Primary Care Provider [phone] Encounter Details Date Type Department Care Team (Late st Contact Info) Description 03/22/[address] [facility] - Main Lab [address] [facility] [place] [address] Peg Yañez MD [address] [place], [place] [id number] Hypotension, unspecified Social History Tobacco Use Types Packs/Day Years Used Date Smoking Tobacco: Former Smokeless Tobacco: Never Comments Unknown Sex and Gender Information Value Date Recorded Sex Assigned at Not on file Legal Sex Female 11:19 PM EST Gender Identity Not on file Sexual Orientation Not on file documented as of this encounter Plan of Treatment Not on file documented as of this encounter Procedures Procedure Name Priority Date/Time Associated Diagnosis Comments COMPLETE BLOOD COUNT Routine 03/22/2025 6:08 AM EDT Hypotension, unspecified BASIC METABOLIC PANEL Routine 03/22/2025 6:08 AM EDT Hypotension, unspecified documented in this encounter Results * (ABNORMAL) Basic metabolic panel (03/22/2025 6:08 AM EDT) Sodium 137 133 - 145 mmol/L LAB CHEMISTRY METHOD 03/22/2025 10:55 AM EDT [facility] Potassium 4.5 3.5 - 5.5 mmol/L LAB CHEMISTRY METHOD 03/22/2025 10:55 AM [facility] Chloride 102 96 - 110 mmol/L LAB CHEMISTRY METHOD 03/22/2025 10:55 AM [facility] CO2 28 21 - 32 mmol/L LAB CHEMISTRY METHOD 03/22/2025 10:55 AM [facility] Anion Gap 7 3 - 11 LAB CHEMISTRY METHOD 03/22/2025 10:55 AM [facility] Glucose 73 70 - 100 mg/dL LAB CHEMISTRY METHOD 03/22/2025 10:55 AM [facility] BUN 42(H) 5 - 25 mg/dL LAB CHEMISTRY METHOD 03/22/2025 10:55 AM [facility] Creatinine 1.53(H) 0.50 - 1.10 mg/dL LAB CHEMISTRY METHOD 03/22/2025 10:55 AM [facility] eGFR 34(L) >=60 mL/min/1. 73m2 LAB CHEMISTRY METHOD 03/22/2025 10:55 AM [facility] Comment:Calculation based on the Chronic Kidney Disease Epidemiology Collaboration (CKD-EPI) equation refit without adjustment for race. BUN/Creatinine Ratio 27.5 LAB CHEMISTRY METHOD 03/22/2025 10:55 AM [facility] Calcium 8.5 8.5 - 10.5 mg/dL LAB CHEMISTRY METHOD 03/22/2025 10:55 AM [facility] Blood Venous blood specimen / Unknown Venipuncture / Unknown 03/22/2025 6:08 AM EDT 03/22/2025 9:27 AM EDT us Peg Yañez MD LAB BLOOD ORDERABLES Final Resul t [facility] [address] [place] [address], * (ABNORMAL) Complete blood count (03/22/2025 6:08 AM EDT) [facility] WBC 7.2 4.8 - 10.8 K/mcL LAB HEMETOLOGY METHOD 03/22/2025 11:00 AM [facility] RBC 3.70(L) 3.80 - 4.80 M/mcL LAB HEMETOLOGY METHOD 03/22/2025 11:00 AM [facility] Hemoglobin 11.4(L) 11.5 - 16.0 g/dL LAB HEMETOLOGY METHOD 03/22/2025 11:00 AM [facility] Hematocrit 34.3(L) 35.0 - 47.0 % LAB HEMETOLOGY METHOD 03/22/2025 11:00 AM [facility] MCV 92.5 79.0 - 98.0 FL LAB HEMETOLOGY METHOD 03/22/2025 11:00 AM [facility] MCH 30.7 27.0 - 32.0 pcg LAB HEMETOLOGY METHOD 03/22/2025 11:00 AM [facility] MCHC 33.2 32.0 - 37.0 g/dL LAB HEMETOLOGY METHOD 03/22/2025 11:00 AM [facility] RDW 14.0 11.0 - 15.0 % LAB HEMETOLOGY METHOD 03/22/2025 11:00 AM [facility] Platelets 252 130 - 400 K/mcL LAB HEMETOLOGY METHOD 03/22/2025 11:00 AM [facility] MPV 10.8 7.0 - 11.0 FL LAB HEMETOLOGY METHOD 03/22/2025 11:00 AM [facility] NRBC 0.0 <1.0 % LAB HEMETOLOGY METHOD 03/22/2025 11:00 AM [facility] NRBC Absolute 0.00 <0.10 K/mcL LAB HEMETOLOGY METHOD 03/22/2025 11:00 AM EDT [facility] Blood Venous blood specimen / Unknown Venipuncture / Unknown 03/22/2025 6:08 AM EDT 03/22/2025 9:27 AM EDT us Peg Yañez MD LAB BLOOD ORDERABLES Final Resul t [facility] [address] [place] [address], documented in this encounter Visit Diagnoses Diagnosis Hypotension, unspecified documented in this encounter Care Teams Floral Associate Relationship Specialty Start Date End Date Edwin Allen MD [address] [place] [address] [address] [facility] [place] [address] PCP - General Internal Medicine 10/26/18 documented as of this encounter
--- OUTSIDE RECORDS SUMMARY | 2025-07-12 13:12 | XMS_ITS | Patient Health Record ---
Author Organization [facility] Address [address] [place] [address] Care Team Providers Care Distribution Associate Name Role Phone Edwin Allen Primary Care Provider Unavailabl e EdwardCarmen Unavailable [phone] Allergies Allergen (clinical drug ingredient) Drug/Non Drug Allergy documented on EMR Reaction Allergy Type Onset Date Status Information temporarily unavailable Colesterol Medicine sick Drug Allergy Active Reason For Referral No Information Medications Medication SIG (Take, Route, Fr equency, Duration) Notes Start Date End Date Status B-12 Active Daily Vitamins as directed Orally Active Lisinopril 20 MG 1 tablet Orally Once a day; Duration: 30 day(s) Active Omeprazole 20 MG 1 capsule Orally Onc e a day; Duration: 30 day(s) Active Magnesium 250 MG 1 tablet with a meal Orally Once a day; Duration: 30 day(s) Active Ramakrishna Aspirin Active Problems Problem Type SNOMED Code ICD Code Onset Dates Problem Status W/U Status Risk Notes Problem Hallux valgus (054258126) Hallux Valgus (735.0) Active confirmed Problem Hammer toe (365363191) Hammer toe (735.4) Active confirmed Problem Pain in limb (66213314) Pain in Limb (729.5) Active confirmed Plan Of Treatment Pending Test Test Name Order Date X ray : Foot, right 3V 03/09/2012 Insurance Providers Payer Name Payer Address Payer Phone Subscriber Number Group Number Insured Name Patient Relationship to Insured Coverage Start Date Coverage End Date Medicare National Govt Sv[employer] [address] [place] [phone] [id number] Bethany Brooke Self - patient is the insured [facility] [address] [place] [address] [id number] Bethany Brooke Self - patient is the insured Medical (General) History Medical History History ICD Code anemia anxiety Cholesterol depression osteoporosis poor circulation Surgical History Surgery Date(Month/Year) eye surgery 02/2007 stints 2007, 2008
--- OUTSIDE RECORDS SUMMARY | 2025-07-12 13:12 | XMS_ITS | Clinical Summary ---
Author Organization [facility] Address [address] [place] [address] Phone Care Team Providers Care Pole Shaver Helper Name Role Phone Edwin Allen MD Primary Care Provider [phone] Allergies Active Allergy Reactions Criticality Noted Date [...] this topic Insurance Medicare Medicare Care Teams Pole Shaver Helper Relationship Specialty Start Date End Date Edwin Allen MD [address] [place] PCP - General 12/10/20
== END 2025-07-12 14:40 | disposition home or self-care (01) ==
LOC: HO.HMCH 12:38
PROVIDERS: PCP Internal Medicine; Visit Provider Internal Medicine
DX: I12.9 Hypertensive chronic kidney disease with stage 1 through stage 4 chronic kidney disease, or unspecified chronic kidney disease (principal); I50.32 Chronic diastolic (congestive) heart failure; I48.19 Other persistent atrial fibrillation; N18.30 Chronic kidney disease, stage 3 unspecified; I34.0 Nonrheumatic mitral (valve) insufficiency; I25.10 Atherosclerotic heart disease of native coronary artery without angina pectoris; I73.9 Peripheral vascular disease, unspecified; E78.00 Pure hypercholesterolemia, unspecified; K22.70 Barrett's esophagus without dysplasia; D64.9 Anemia, unspecified; M25.312 Other instability, left shoulder

== ENCOUNTER → 2025-07-22 11:07 | Outpatient (BNV) | payer MEDICARE, SELFPAY ==
[2022-10-20 12:25] VITALS: BP 116/64; BMI 28.6
== END ==
PROVIDERS: PCP Internal Medicine; Visit Provider Radiology Diagnostic Radiology
DX: M25.312 Other instability, left shoulder (principal); M19.012 Primary osteoarthritis, left shoulder
CPT/HCPCS: 73221

== ENCOUNTER 2025-07-22 11:08 | Outpatient (REF) | payer MEDICARE, SELFPAY ==
[2022-10-20 12:25] VITALS: BP 116/64; BMI 28.6
--- NOTE | ~2025-07-22 | MR_ITS ---
CLINICAL HISTORY: M25.312 - Other instability, left shoulder MR of the left shoulder without contrast. No prior MR provided. Findings: There is motion artifact. There is a probable full-thickness tear of the distal supraspinatus tendon with mild retraction. No other rotator cuff tear is identified. The biceps tendon is intact. There is mild deformity of the humeral head presumably due to old trauma. Prior dislocation is a possibility. There is minimal posterior subluxation of the humeral head. There is jeem-sv-mlrpjloc glenohumeral DJD. There is a tear of the posterior superior labrum. There is moderate to advanced acromioclavicular DJD. Soft tissue calcification adjacent to the coracoid process is suspicious for the sequela of old trauma. Impression: Probable full-thickness tear of the distal supraspinatus tendon. Suspect old trauma of the humeral head. Sjsm-ko-uuoocucx glenohumeral DJD with a tear of the posterior superior labrum. 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 This document has been electronically signed by: Byron Campuzano MD on 07/24/2025 21:01:51
--- OUTSIDE RECORDS SUMMARY | 2025-07-22 11:17 | XMS_ITS | Clinical Summary ---
Author Organization [facility] Address [address] [place] [address] Phone Care Team Providers Care Wave Guide Assembler Name Role Phone Edwin Allen MD Primary Care Provider [phone] Allergies Active Allergy Reactions Criticality Noted Date [...] this topic Insurance Medicare Medicare Care Teams Wave Guide Assembler Relationship Specialty Start Date End Date Edwin Allen MD [address] [place] PCP - General 12/10/20
--- OUTSIDE RECORDS SUMMARY | 2025-07-22 11:17 | XMS_ITS | Patient Health Record ---
Author Organization [facility] Address [address] [place] [address] Care Team Providers Care Content Management Specialist Name Role Phone Edwin Allen Primary Care Provider Unavailabl e EdwardCarmen Unavailable [phone] Allergies Allergen (clinical drug ingredient) Drug/Non Drug [...] W/U Status Risk Notes Problem Hallux valgus (975207628) Hallux Valgus (735.0) Active confirmed Problem Hammer toe (593116387) Hammer toe (735.4) Active confirmed Problem Pain in Limb (729.5) Active confirmed Plan Of Treatment Pending Test Test Name Order Date X ray : Foot, right 3V 03/09/2012 Insurance Providers Payer Name Payer Address Payer Phone Subscriber Number Group Number Insured Name Patient Relationship to Insured Coverage Start Date Coverage End Date Medicare National Govt Svcs Inc [address] [place] [phone] [id number] Bethany Brooke Self - patient is the insured [employer] [address] [place] [address] [id number] Bethany Brooke Self - patient is the insured Medical (General) History Medical History History ICD Code anemia anxiety Cholesterol depression osteoporosis poor circulation Surgical History Surgery Date(Month/Year) eye surgery 02/2007 stints 2007, 2008
--- OUTSIDE RECORDS SUMMARY | 2025-07-22 11:17 | XMS_ITS | Encounter Summary ---
Author Organization [facility] [address] Address [address] [place] [address] Care Team Providers Care Air Sampler Name Role Phone Edwin Allen MD Primary Care Provider [phone] Encounter Details Date Type Department Care Team (Late st Contact Info) Description 03/31/2025 Lab Requisition [facility] - Main Lab [address] [facility] [place] [address] Peg Yañez MD [address] [place], [place] [id number] Heart failure, unspecified (CMS/HCC V24, CMS/HCC V28) [...] unspecified documented in this encounter Care Teams Air Sampler Relationship Specialty Start Date End Date Edwin Allen MD [address] [place] [address] [address] [facility] [place] [address] PCP - General Internal Medicine 10/26/18 documented as of this encounter
--- OUTSIDE RECORDS SUMMARY | 2025-07-22 11:17 | XMS_ITS | Patient Health Record ---
Author Organization [facility] Address [address] [place] [address] Care Team Providers Care Certified Massage Therapist Name Role Phone Edwin Rousseau MD Primary Care Provider Deyvi Casarez [phone] Allergies Allergen (clinical drug ingredient) Drug/Non Drug [...] Problem Status W/U Status Risk Notes Problem [id number] 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 confirmed Problem 4331084 Melena (K92.1) Active confirmed Problem 668323761 Gastroesophageal reflux disease without esophagitis (K21.9) Active [...] [employer] [address] [place] [address] [id number] APRIL DARBY Self - patient is the [...] artery angioplasty with stenting in 2006 [place] [facility] [place] Sleep apnea-doesn't use a CPAP mask Denies [place],DM,CVA,Lung disease,renal dise ase EGD in 07/2015--1 set [...] 2019 Left subclavian artery stenosis surgery [place] [facility] [place]
== END 2025-07-22 11:09 | disposition home or self-care (01) ==
LOC: HO.MRI 11:08
PROVIDERS: PCP Internal Medicine; Visit Provider Orthopaedic Surgery
DX: M25.312 Other instability, left shoulder (principal)
CPT/HCPCS: 73221

== ENCOUNTER 2025-07-27 14:55 | Outpatient (AMB) | payer MEDICARE, SELFPAY ==
[2022-10-20 12:25] VITALS: BP 116/64; BMI 28.6
--- NOTE | 2025-07-27 14:56 | A.OFFVIS_ITS ---
Intake Visit Reasons: OV-MRI Review of the Left Shoulder, 07/22/25. Intake Note: Bethany is a 85 year old female who presents today VIA Telehealth for a MRI Review of the Left Shoulder, 07/22/25. Patient states that her left shoulder pain his somewhat improved since her cortisone injection. She continues with her range of motion exercises. She wishes to hold off on surgery if at all possible. Allergies latex Allergy (Mild, Verified 07/27/25 14:59) rash simvastatin (Simvastatin) Allergy (Mild, Verified 07/27/25 14:59) NAUSEA Medication List - Last Reconciled 07/27/25 by Elvis Peck MD apixaban (Eliquis) 5 mg PO BID atorvastatin 40 mg PO BEDTIME calcium carbonate 500 mg PO DAILY cholecalciferol (vitamin D3) 25 mcg PO DAILY furosemide 40 mg See Protocol PO BID@0900,1800 90 days lisinopril 2.5 mg PO DAILY metoprolol tartrate 25 mg PO BID 90 days multivitamin 1 tab PO DAILY nystatin 1 appl See Protocol topical BID omeprazole 20 mg PO DAILY [facility] Medical History (Updated 07/12/25 @ 12:50 by Edwin Allen MD) Non-rheumatic mitral regurgitation CHF exacerbation Acute exacerbation of chronic heart failure Mitral valve regurgitation PAD (peripheral artery disease) Persistent atrial fibrillation CHF (congestive heart failure) Peripheral vascular disease Essential hypertension Chronic heart failure with preserved ejection fraction Atherosclerotic cardiovascular disease Cognitive impairment Coronary artery disease of bypass graft of [place] heart with stable angina pectoris Subclavian artery stenosis, left Colitis Bilateral femoral artery stenosis Hypercholesterolemia Roger's esophagus Surgical History Status post aorto-coronary artery bypass graft History of coronary artery bypass graft (~06/2020) Family History Father No problems noted. Mother No problems noted. Social History Household Members: Children Housing: House Do you presently have visiting nurse or other home services: No Alcohol intake: never Comment: 1-2 A year Patient Tobacco Use Status: Former Tobacco user Tobacco use type: Cigarette Years Smoked: quit in 1979 e-Cigarette/Vaping Use: Never Used Second Hand Smoke Exposure: No service: No Current occupational status: retired Cognitive needs: Yes (cane, transport wheelchair, Walker) Hearing needs: No Vision needs: Yes (glasses) Physical Exam Const Other: No physical examination today because of tele health appointment Telehealth Telehealth Telehealth Platform: Telephone Location of provider rendering services: practice address Location of patient: address on file Patient Identification confirmed using: Name, : Yes Telehealth method: voice only Patient verbally consented to treatment: Yes Patient verbally consented to billing insurance company: Yes Patient informed of any privacy concerns related to visit: Yes Minutes spent on Phone/Video with Pt.: 12 Results Reviewed Results Reviewed: MRI of the patient's left shoulder show severe acromioclavicular joint narrowing, a type 2 acromion, a full-thickness tear of the supraspinatus tendon Assessment & Plan Assessment & Plan (1) Rotator cuff insufficiency of left shoulder: Code(s): M25.312 - Other instability, left shoulder Category: Medical Plan Ms. Brooke presents with left shoulder pain and weakness due to impingement syndrome and a supraspinatus tendon tear. I had a lengthy discussion with the patient and her daughter regarding the treatment options. The patient wishes to hold off on surgery if at all possible. She will continue with the iiojw-wq-gxbnva exercises. I will see her back in 2 months' time for possible repeat cortisone injection. Feel free to call me at any time should questions regarding her orthopedic management arise. Coding Level of Care Code Tele Est Pt Level 2 (95360) Complex EM visit Add On G2211 Diagnoses Rotator cuff insufficiency of left shoulder M25.312
--- OUTSIDE RECORDS SUMMARY | 2025-07-27 15:37 | XMS_ITS | Patient Health Record ---
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
--- OUTSIDE RECORDS SUMMARY | 2025-07-27 15:37 | XMS_ITS | Encounter Summary ---
Author Organization [facility] Address [address] [place] [address] Care Team Providers Care Licensing And Registration Director Name Role Phone dEwin Allen MD Primary Care Provider [phone] Encounter Details Date Type Department Care Team (Late st Contact Info) Description 03/23/2025 Lab Requisition [facility] - Main Lab [address] [place] [address] Peg Yañez MD [address] [place], [place] [id number] Essential (primary) hypertension Social History Tobacco Use Types Packs/Day Years [...] Associated Diagnosis Comments COMPLETE BLOOD COUNT Routine 03/24/2025 4:36 AM EDT Essential (primary) hypertension BASIC METABOLIC PANEL Routine 03/24/2025 4:36 AM EDT Essential (primary) hypertension documented in this encounter Results * (ABNORMAL) Basic metabolic panel (03/24/2025 4:36 AM EDT) Sodium 139 133 - 145 mmol/L LAB CHEMISTRY METHOD 03/24/2025 8:39 AM EDT [facility] Potassium 4.1 3.5 - 5.5 mmol/L LAB CHEMISTRY METHOD 03/24/2025 8:39 AM [facility] Chloride 107 96 - 110 mmol/L LAB CHEMISTRY METHOD 03/24/2025 8:39 AM [facility] CO2 26 21 - 32 mmol/L LAB CHEMISTRY METHOD 03/24/2025 8:39 AM [facility] Anion Gap 6 3 - 11 LAB CHEMISTRY METHOD 03/24/2025 8:39 AM [facility] Glucose 80 70 - 100 mg/dL LAB CHEMISTRY METHOD 03/24/2025 8:39 AM [facility] BUN 25 5 - 25 mg/dL LAB CHEMISTRY METHOD 03/24/2025 8:39 AM [facility] Creatinine 1.37(H) 0.50 - 1.10 mg/dL LAB CHEMISTRY METHOD 03/24/2025 8:39 AM [facility] eGFR 38(L) >=60 mL/min/1. 73m2 LAB CHEMISTRY METHOD 03/24/2025 8:39 AM [facility] Comment:Calculation based on the Chronic Kidney Disease Epidemiology Collaboration (CKD-EPI) equation refit without adjustment for race. BUN/Creatinine Ratio 18.2 LAB CHEMISTRY METHOD 03/24/2025 8:39 AM [facility] Calcium 8.5 8.5 - 10.5 mg/dL LAB CHEMISTRY METHOD 03/24/2025 8:39 AM [facility] Blood Venous blood specimen / Unknown Venipuncture / Unknown 03/24/2025 4:36 AM EDT 03/24/2025 7:55 AM EDT us Peg Yañez MD LAB BLOOD ORDERABLES Final Resul t [facility] [address] [place] [address], * (ABNORMAL) Complete blood count (03/24/2025 4:36 AM EDT) [facility] WBC 6.9 4.8 - 10.8 K/mcL LAB HEMETOLOGY METHOD 03/24/2025 8:12 AM [facility] RBC 3.30(L) 3.80 - 4.80 M/mcL LAB HEMETOLOGY METHOD 03/24/2025 8:12 AM [facility] Hemoglobin 10.3(L) 11.5 - 16.0 g/dL LAB HEMETOLOGY METHOD 03/24/2025 8:12 AM [facility] Hematocrit 30.6(L) 35.0 - 47.0 % LAB HEMETOLOGY METHOD 03/24/2025 8:12 AM [facility] MCV 91.6 79.0 - 98.0 FL LAB HEMETOLOGY METHOD 03/24/2025 8:12 AM [facility] MCH 30.8 27.0 - 32.0 pcg LAB HEMETOLOGY METHOD 03/24/2025 8:12 AM [facility] MCHC 33.7 32.0 - 37.0 g/dL LAB HEMETOLOGY METHOD 03/24/2025 8:12 AM [facility] RDW 14.2 11.0 - 15.0 % LAB HEMETOLOGY METHOD 03/24/2025 8:12 AM [facility] Platelets 212 130 - 400 K/mcL LAB HEMETOLOGY METHOD 03/24/2025 8:12 AM [facility] MPV 10.6 7.0 - 11.0 FL LAB HEMETOLOGY METHOD 03/24/2025 8:12 AM [facility] NRBC 0.0 <1.0 % LAB HEMETOLOGY METHOD 03/24/2025 8:12 AM [facility] NRBC Absolute 0.00 <0.10 K/mcL LAB HEMETOLOGY METHOD 03/24/2025 8:12 AM EDT [facility] Blood Venous blood specimen / Unknown Venipuncture / Unknown 03/24/2025 4:36 AM EDT 03/24/2025 7:55 AM EDT us Peg Yañez MD LAB BLOOD ORDERABLES Final Resul t [facility] [address] [place] [address], documented in this encounter Visit Diagnoses Diagnosis Essential (primary) hypertension Unspecified essential hypertension documented in this encounter Care Teams Licensing And Registration Director Relationship Specialty Start Date End Date Edwin Allen MD [address] [place] [address] Dr [address] [facility] [place] [address] PCP - General Internal Medicine 10/26/18 documented as of this encounter
--- OUTSIDE RECORDS SUMMARY | 2025-07-27 15:37 | XMS_ITS | Clinical Summary ---
Author Organization [address] [place] [address] Address [address] [place] [address] Phone Care Team Providers Care Senior Consumer Insights Consultant Name Role Phone Edwin Allen MD Primary Care Provider [phone] Allergies No known active allergies Medications CALCIUM [...] Date Diagnosed Date PAD (peripheral artery disease) ([facility] V24) Social History Tobacco Use Types Packs/Day Years [...] 01/02/2025 1:42 PM EST Plan of Treatment Health Maintenance Due Date Last Done Comments DTaP,Tdap,and Td Vaccines (1 - Tdap) 1960 Zoster Vaccines (1 of 2) 1991 RSV Immunization Adult Patients (1 - 1-dose 75+ series) 2016 COVID-19 Vaccine (3 - season) 2024 04/09/2021, 03/12/2021 Cholesterol Screening (Lipid Panel) 10/19/2024 Falls Risk Assessment 10/19/2024 Medicare Annual Wellness Visit 10/19/2024 Osteoporosis Screening (Bone Density Screening) 10/19/2024 Social Influencers of Health Screening 10/19/2024 Depression Screening 11/30/2024 Influenza Vaccine (#1) 2025 , 09/27/2021, 12/23/2019, Additional history exists Hypertension/CHF/CAD Annual BMP Blood Test 03/27/2026 03/27/2025, 03/24/2025, 03/22/2025, Additional history exists Pneumococcal Vaccine: 50+ Years Completed 12/23/2019, 12/25/2015, 02/10/2014 HIB Vaccines Aged Out No longer eligi [...] age to complete this topic Meningococcal B Vaccine Aged Out No l onger eligible based on patient's age to complete this topic RSV Immunization Patients Under 20 months Aged Out No longer eligible based on patient's age to complete this topic Varicella Vaccines Aged Out No longer eligible based on patient's age to complete this topic Procedures Procedure Name Priority Date/Time Associated Diagnosis Comments BASIC METABOLIC PANEL Routine 03/27/2025 5:06 AM EDT Heart failure, unspecified ([facility] V24, [facility] V28) from Last 3 Months or Most Recently Relevant to Health Maintenance Results * (ABNORMAL) Basic metabolic panel (03/27/2025 5:06 AM EDT) Sodium 137 133 - 145 mmol/L LAB CHEMISTRY METHOD 03/27/2025 1:58 PM [facility] Potassium 4.1 3.5 - 5.5 mmol/L LAB CHEMISTRY METHOD 03/27/2025 1:58 PM [facility] Chloride 104 96 - 110 mmol/L LAB CHEMISTRY METHOD 03/27/2025 1:58 PM [facility] CO2 25 21 - 32 mmol/L LAB CHEMISTRY METHOD 03/27/2025 1:58 PM [facility] Anion Gap 8 3 - 11 LAB CHEMISTRY METHOD 03/27/2025 1:58 PM [facility] Glucose 76 70 - 100 mg/dL LAB CHEMISTRY METHOD 03/27/2025 1:58 PM [facility] BUN 17 5 - 25 mg/dL LAB CHEMISTRY METHOD 03/27/2025 1:58 PM [facility] Creatinine 1.16(H) 0.50 - 1.10 mg/dL LAB CHEMISTRY METHOD 03/27/2025 1:58 PM [facility] eGFR 47(L) >=60 mL/min/1. 73m2 LAB CHEMISTRY METHOD 03/27/2025 1:58 PM [facility] Comment:Calculation based on the Chronic Kidney Disease Epidemiology Collaboration (CKD-EPI) equation refit without adjustment for race. BUN/Creatinine Ratio 14.7 LAB CHEMISTRY METHOD 03/27/2025 1:58 PM [facility] Calcium 8.4(L) 8.5 - 10.5 mg/dL LAB CHEMISTRY METHOD 03/27/2025 1:58 PM [facility] Blood Venous blood specimen / Unknown Venipuncture / Unknown 03/27/2025 5:06 AM EDT 03/27/2025 10:13 AM EDT Peg Yañez MD LAB BLOOD ORDERABLES Final Resul t [facility] [address] [place] [address], from Last 3 Months or Most Recently Relevant to Health Maintenance Insurance [employer] [address] [facility] MEDICARE MEDICAID - [place] Advance Directives Documents on File Type Date Recorded Patient Assistant Art Director Expl anation Health Care Decision (hx) 03/13/2018 AD RODY DIRECTIVE Care Teams Senior Consumer Insights Consultant Relationship Specialty Start Date End Date Ediwn Allen MD [address] [place] [address] [address] [facility] [place] [address] PCP - General Internal Medicine 10/26/18
--- OUTSIDE RECORDS SUMMARY | 2025-07-27 15:37 | XMS_ITS | Encounter Summary ---
Author Organization [facility] Address [address] [place] [address] Phone Care Team Providers Care Restaurant Delivery Driver Name Role Phone Edwin Allen MD Primary Care Provider [phone] Encounter Details Date Type Department Care Team (Late st Contact Info) Description 05/01/[address], [facility] - [address], [address] [place] [address] Social History Tobacco Use Types Packs/Day Years Used Date Smoking Tobacco: Former Comments Unknown Sex and Gender Information Value Date Recorded Sex Assigned at Not on file Legal Sex Female 6:00 PM EST Gender Identity Not on file Sexual Orientation Not on file documented as of this encounter Plan of Treatment Not on file documented as of this encounter Visit Diagnoses Not on filedocumented in this encounter Care Teams Restaurant Delivery Driver Relationship Specialty Start Date End Date Edwin Allen MD [address] [place] [address] PCP - General 05/30/14 documented as of this encounter Additional Source Comments The information contained in this document represents components of the legal health record. It is not the complete legal health record.[facility]
--- OUTSIDE RECORDS SUMMARY | 2025-07-27 15:37 | XMS_ITS | Encounter Summary ---
Author Organization [facility] Address [address] [place] [address] Phone Care Team Providers Care Fur Glosser Name Role Phone Edwin Allen MD Primary Care Provider [phone] Encounter Details Date Type Department Care Team (Late st Contact Info) Description 06/30/[address] [facility] Vascular Surgery - [place] [address] [place] [address], [address] Floor, [address] [place] [address] Arcenio Wolf MD, RY [address] [place] [address], [address] [place] [address] [email or web address] Social History Tobacco Use Types Packs/Day Years [...] Entry Date Author No 06/30/2017 12:11 PM EDT Lanette Herbert NP documented in this encounter Progress Notes * Otoniel Jay - 06/30/2017 7:55 PM EDT NIH Stroke Scale/mRS Interval: Pre-Op Time: 11:45 (06/29/2017) Person Administering Scale: Otoniel Jay mRS: 0 1a Level of consciousness: 0 1b. LOC questions: 0 1c. LOC commands: 0 2. Best Gaze: 0 3. Visual: 0 4. Facial Palsy: 0 5a. Motor left arm: 0 5b. Motor right arm: 0 6a. motor left le 6b Motor right le 7. Limb Ataxia: 0 8. Sensory: 0 9. Best Language: 0 10. Dysarthria: 0 11. Extinction and Inattention: 0 12. Distal motor function: 0 Total: 0 * Otoniel Jay - 06/30/2017 7:55 PM EDT NIH Stroke Scale/mRS Interval: Post-Op Time: 13:00 (06/30/2017) Person Administering Scale: Otoniel Jay mRS: 0 1a Level of consciousness: 0 1b. LOC questions: 0 1c. LOC commands: 0 2. Best Gaze: 0 3. Visual: 0 4. Facial Palsy: 0 5a. Motor left arm: 0 5b. Motor right arm: 0 6a. motor left le 6b Motor right le 7. Limb Ataxia: 0 8. Sensory: 0 9. Best Language: 0 10. Dysarthria: 0 11. Extinction and Inattention: 0 12. Distal motor function: 0 Total: 0 documented in this encounter Plan of Treatment Not on file documented as of this encounter Visit Diagnoses Not on filedocumented in this encounter Care Teams Fur Glosser Relationship Specialty Start Date End Date Edwin Allen MD [address] [place] [address] PCP - General 05/30/14 documented as of this encounter Additional Source Comments The information contained in this document represents components of the legal health record. It is not the complete legal health record.[facility]
--- OUTSIDE RECORDS SUMMARY | 2025-07-27 15:37 | XMS_ITS | Clinical Summary ---
Author Organization [facility] Address [address] [place] [address] Phone Care Team Providers Care Executive Assistant Name Role Phone Po, Edwin Pulliam MD Primary Care Provider [phone] Allergies No known active allergies Medications MAGNESIUM OXIDE (MAG-OXIDE ORAL) Dose: Not available; Form: Not available; Route: PO; Frequency: Not available; Directions: As directed; Details: Dispense: Tablet(s); Date: 09/24/2012 2 Active omeprazole (PRILOSEC) 20 mg TbEC Take 1 tablet by mouth daily. 2 Active lisinopril (PRINIVIL,ZESTR IL) 10 MG tablet Take 5 mg by mouth daily. Active metoprolol succinate (TOPROL-XL) 25 MG 24 hr tablet Take 25 mg by mouth daily. Active furosemide (LASIX) 40 MG tablet Take 20 mg by mouth daily. Active acetaminophen (TYLENOL) 325 mg tablet Take 1-2 tablets (325-650 mg total) by mouth every 6 (six) hours as needed for mild pain. 0 7 Active Additional Information Patient not taking.Reported on 10/01/2018 aspirin 325 MG tablet Take 1 tablet (325 mg total) by mouth daily. 7 Active apixaban (ELIQUIS) 5 mg tablet Take 1 tablet (5 mg total) by mouth 2 (two) times a day. 7 Active docusate (COLACE) 50 mg/5 mL liquid Take 10 mL (100 mg total) by mouth 2 (two) times a day. 7 Active CYANOCOBALAMIN, VITAMIN B-12, (VITAMIN B-12 INJ) Inject 1,000 mg as directed every 30 (thirty) days. Active atorvastatin (LIPITOR) 40 MG tablet Take 40 mg by mouth daily. Active Active Problems Problem Noted Date Diagnosed Date Hyperlipidemia 07/31/2017 Subclavian arterial stenosis 06/28/2017 Carotid stenosis, asymptomatic 04/22/2017 Claudication of lower extremity 04/22/2017 Peripheral arterial occlusive disease 04/22/2017 CRI (chronic renal insufficiency) 04/22/2017 Chronic anticoagulation 04/22/2017 Carotid artery stenosis 09/14/2015 Overview (11/06/2015): Carotid artery stenosis Uncoded Subclavian Stenosis 09/14/2015 Overview (11/06/2015): Subclavian Stenosis Uncoded Left Subclavian Stenosis 09/14/2015 Overview (11/06/2015): Left Subclavian Stenosis Peripheral vascular disease 09/14/2015 Overview (11/06/2015): PVD - Peripheral vascular disease Hypertensive disorder 01/27/2014 Overview (01/20/2015): Hypertensive disorder Claudication 09/24/2012 Overview (01/20/2015): Claudication S/P insertion of iliac artery stent 09/24/2012 Overview (01/20/2015): S/P Insertion of iliac artery stent Social History Tobacco Use Types Packs/Day Years Used Date Smoking Tobacco: Never Smokeless Tobacco: Never Education Answer Date Recorded Are you interested in more education? Not on petty e 04/05/2023 Are you concerned about learning? Not on file 04/05/2023 No 04/05/2023 No 04/05/2023 Digital Access Answer Date Recorded No 04/25/2023 No 04/25/2023 No 04/25/2023 Reliable internet access at home? Not on file 04/25/2023 Device with a working camera? Not on file Comments Unknown Sex and Gender Information Value Date Recorded Sex Assigned at Not on file Legal Sex Female 6:00 PM EST Gender Identity Not on file Sexual Orientation Not on file Last Filed Vital Signs Vital Sign Reading Time Taken Comments Blood Pressure 177/74 10/01/2018 1:56 PM EDT Pulse 81 10/01/2018 1:55 PM EDT Temperature 37.2 C (98.9 F) 07/01/2017 11:51 AM EDT Respiratory Rate 14 10/01/2018 1:55 PM EDT Oxygen Saturation 94% 07/01/2017 11:51 AM EDT Inhaled Oxygen Concentration - - Weight 72.6 kg (160 lb) 10/01/2018 1:34 PM EDT Height 160 cm (5' 3 ) 10/01/2018 1:34 PM EDT Body Mass Index 28.34 10/01/2018 1:34 PM EDT Plan of Treatment Health Maintenance Due Date Last Done Comments Adult Td,Tdap Booster 1941 BLOOD PRESSURE 1941 DEPRESSION SCREENING 1953 ZOSTER VACCINES (1 of 2) 1991 OSTEOPOROSIS SCREENING INITIAL (ONE-TIME) 2006 RSV VACCINE (1 - 1-dose 75+ series) 2016 CREATININE LEVEL 06/30/2018 06/30/2017, , 06/28/2017, Additional history exists POTASSIUM LEVEL 06/30/2018 06/30/2017, 06/01, 06/28/2017, Additional history exists COVID-19 VACCINE ( season) 2024 03/12/2021 PNEUMOCOCCAL VACCINES (50+ years) Completed 12/23/2019, 12/25/2015 HEPATITIS A VACCINES Aged Out No long er eligible based on patient's age to complete this topic HIB VACCINES Aged Out No longer eligi ble based on patient's age to complete this topic MENINGOCOCCAL VACCINES (ACWY) Aged Out No longer eligible based on patient's age to complete this topic MENINGOCOCCAL VACCINES (B) Aged Out N o longer eligible based on patient's age to complete this topic Medical Devices Implanted Type Area Needle Valve Operator Device Identifier Shelf Expiration Date Model / Serial / Lot Stent Stent Description:stents to right and left leg Graft Vascular [id number] [employer] Vxt Ptfe Standard Wall Ea - [id number] Implanted:Qty: 1 on 06/29/2017 by Arcenio Wolf MD, RY at [facility] Left: Carotid [employer] 12/12/2018 [id number] / [id number] / Procedures Procedure Name Priority Date/Time Associated Diagnosis Comments BASIC METABOLIC PANEL Routine 06/30/2017 8:49 AM EDT from Last 3 Months or Most Recently Relevant to Health Maintenance Results * (ABNORMAL) Basic metabolic panel (06/30/2017 8:49 AM EDT) SODIUM 140 135 - 145 mmol/L [facility] POTASSIUM 4.4 3.4 - 5.0 mmol/L [facility] CHLORIDE 103 98 - 108 mmol/L [facility] CO2 26 23 - 32 mmol/L [facility] BUN 21 8 - 25 mg/dL [facility] CREATININE 1.44 0.60 - 1.50 mg/dL [facility] GLUCOSE 106 70 - 110 mg/dL [facility] CALCIUM 9.1 8.5 - 10.5 mg/dL [facility] EGFR 35(A) >60 mL/min/1.7 3m2 [facility] Comment:Abnormal result. The normal range for eGFR is >60 mL/min/1.73m2. If this patient is -[place], please multiply the reported result by 1.21 ANION GAP 11 3 - 17 mmol/L [facility] Blood 06/30/2017 8:49 AM EDT 06/30/2017 9:31 AM EDT us Arcenio Wolf MD, RY LAB BLOOD ORDERABLE S Final Result [address] [address] from Last 3 Months or Most Recently Relevant to Health Maintenance Insurance MEDICARE PART A & B MEDICARE PART A & B MEDICARE PART A & B MEDICARE PART A & B MEDICARE PART A & B MEDICARE PART A & B MEDICARE PART A & B MEDICARE PART A & B MEDICARE PART A & B Advance Directives For more information, please contact: [phone] (9AM - 5PM [facility], Thursday-Thursday) Documents on File Type Date Recorded Patient Pharmacy Analyst Expl anation Healthcare Proxy 07/03/2017 1:09 PM * Full Code (Presumed) (Latest Code Status on File) Date Activated Date Inactivated Comments 06/29/2017 10:47 PM 07/01/2017 3:59 PM * Full Code (Presumed) Date Activated Date Inactivated Comments 06/28/2017 1:47 PM 06/29/2017 10:47 PM Care Teams Executive Assistant Relationship Specialty Start Date End Date Edwin Allen MD [address] [place] [address] [place] [phone] PCP - General 05/30/14 Additional Source Comments The information contained in this document represents components of the legal health record. It is not the complete legal health record.[facility]
--- OUTSIDE RECORDS SUMMARY | 2025-07-27 15:37 | XMS_ITS | Encounter Summary ---
Author Organization [facility] Address [address] [place] [address] [place] [address] Phone Care Team Providers Care Stem Assembler Name Role Phone Edwin Allen MD Primary Care Provider [phone] Encounter Details Date Type Department Care Team (Late st Contact Info) Description 08/12/2018 Ancillary Orders Arcenio Wolf MD - [facility] [address] [address] Arcenio Wolf MD, RY [address] [place] [address], Floor 2 [place] [address] [email or web address] Atherosclerosis of [place] artery of both lower extremities with intermittent [...] this encounter Visit Diagnoses Diagnosis Atherosclerosis of [place] artery of both lower extremities with intermittent claudication PAD (peripheral artery disease) Unspecified peripheral vascular disease documented in this encounter Care Teams Stem Assembler Relationship Specialty Start Date End Date Edwin Allen MD [address] [place] [address] [place] [phone] PCP - General 05/30/14 documented as of this encounter Additional Source Comments The information contained in this document represents components of the legal health record. It is not the complete legal health record.[facility]
--- OUTSIDE RECORDS SUMMARY | 2025-07-27 15:37 | XMS_ITS | Encounter Summary ---
Author Organization [facility] Address [address] [place] [address] Phone Care Team Providers Care Instructor Dramatic Arts Name Role Phone Edwin Allen MD Primary Care Provider [phone] Reason for Referral * MRI/CAT Scan - Closed Specialty Diagnoses / Procedures Referred By Sarah mane Referred To Contact Radiology Diagnoses Subclavian arterial stenosis Procedures CT Angio Upper Extremity (Left) Arcenio Wolf MD, RY Phone: tel: fax: [email or web address] Referral ID Status Reason Start Date Expiration Date Visits Re quested Visits Authorized [id number] Closed 05/01/2017 05/01/2018 1 1 Encounter Details Date Type Department Care Team (Late st Contact Info) Description 05/01/2017 Ancillary Orders Arcenio Wolf MD - [facility] [address] [place] [address] Arcenio Wolf MD, RY [address] [place] [address], Floor 2 [place] [address] [email or web address] Subclavian arterial stenosis Social History Tobacco Use Types Packs/Day Years Used Date Smoking Tobacco: Former Comments Unknown Sex and Gender Information Value Date Recorded Sex Assigned at Not on file Legal Sex Female 6:00 PM EST Gender Identity Not on file Sexual Orientation Not on file documented as of this encounter Plan of Treatment Not on file documented as of this encounter Results * CT ANGIO UPPER EXTREMITY WITH AND WITHOUT CONTRAST (LEFT) (05/07/2017 3:39 PM EDT) Anatomical Region Laterality Modality Hand Left, Wrist Left, Forea rm Left, Elbow Left, Arm Left, Shoulder Left Computed Tomography 05/08/2017 10:0 3 AM EDT Impressions 05/08/2017 10:26 AM EDT * Segmental occlusion of the proximal left subclavian artery, with an additional severe stenosis of the mid left subclavian artery after the takeoff of the left vertebral artery. * Otherwise normal left upper extremity arteries. * Incidental severe stenosis of the dominant left renal artery with atrophic left kidney. * Intrathoracic stomach. * Indeterminate 4 mm left upper lobe apex pulmonary nodule. RECOMMENDATION: Chest CT in 12 months for the lung nodule. This report has been forwarded to an automated communication system which will electronically notify appropriate providers of potentially important findings. Narrative 05/08/2017 10:26 AM EDT TECHNIQUE: CTA UPPER EXTREMITY. Preliminary images from the ANDRE to the fingertips were obtained. Following intravenous injection of contrast, images from the ANDRE to the fingertips were obtained with 1.25 mm effective slice thickness. Delayed images were obtained to evaluate the venous circulation. 3D IMAGES WITH REFORMATTING AND POST-PROCESSING RECONSTRUCTIONS WERE PERFORMED AND INTERPRETED. COMPARISON: None INDICATION: Upper extremity peripheral arterial disease. Rest pain in the upper extremity. Diminished pulses. FINDINGS: There is subtotal occlusion of the proximal left subclavian artery, approximately 1 cm distal to its ostium. More distally within the left subclavian artery, after the takeoff of the left vertebral artery, there is an additional focal severe stenosis. Images are provided on series 277. There is a three-vessel left aortic arch. There is only mild narrowing of the ostia of the innominate and left common carotid arteries. The left subclavian, axillary, brachial, radial, and ulnar arteries are patent. Incidental images of the left chest and abdomen demonstrates a nonaneurysmal thoracoabdominal aorta. There is extensive calcified plaque of the aorta with calcified mural thrombus and recanalized thrombus versus a small focal dissection in the infrarenal portion. The left iliac arteries are patent. There appear to be bilateral common iliac artery stents which are patent. The celiac, superior mesenteric, and inferior mesenteric arteries appear patent. There is likely severe ostial stenosis of the dominant left renal artery. The left kidney is small compared to the right. There is a 4 mm noncalcified pulmonary nodule at the apex of the left upper lobe (series 6 image 30). Both cardiac atria are enlarged and there is mitral annular calcification. There is coronary arterial calcification compatible with atherosclerosis. There is an intrathoracic stomach. Evaluation of abdominal viscera is limited by the vascular phase of contrast. There is a 1.6 cm left ovarian cyst. The left kidney is atrophic compared to the right, and there are multiple peripheral wedge defects in the left renal parenchyma. Visualized skeleton shows degenerative changes. No evidence for any suspicious lytic or blastic lesions. Procedure Note Orlando Hernandez MD, MPH - 05/08/2017 TECHNIQUE: CTA UPPER EXTREMITY. Preliminary images from the ANDRE to the fingertips were obtained. Following intravenous injection of contrast,images from the ANDRE to the fingertips were obtained with 1.25 mm effectiveslice thickness. Delayed images were obtained to evaluate the venouscirculation. 3D IMAGES WITH REFORMATTING AND POST-PROCESSING RECONSTRUCTIONS WEREPERFORMED AND INTERPRETED. COMPARISON: None INDICATION: Upper extremity peripheral arterial disease. Rest pain in theupper extremity. Diminished pulses. FINDINGS: There is subtotal occlusion of the proximal left subclavian artery, approximately 1 cm distal to its ostium. More distally within the left subclavian artery, after the takeoff of the left vertebral artery, thereis an additional focal severe stenosis. Images are provided on series 277. There is a three-vessel left aortic arch. There is only mild narrowing ofthe ostia of the innominate and left common carotid arteries. The left subclavian, axillary, brachial, radial, and ulnar arteries arepatent. Incidental images of the left chest and abdomen demonstrates anonaneurysmal thoracoabdominal aorta. There is extensive calcified plaque of the aortawith calcified mural thrombus and recanalized thrombus versus a small focal dissection in the infrarenal portion. The left iliac arteries are patent.There appear to be bilateral common iliac artery stents which are patent. The celiac, superior mesenteric, and inferior mesenteric arteries appearpatent. There is likely severe ostial stenosis of the dominant left renal artery.The left kidney is small compared to the right. There is a 4 mm noncalcified pulmonary nodule at the apex of the leftupper lobe (series 6 image 30). Both cardiac atria are enlarged and there is mitral annular calcification.There is coronary arterial calcification compatible with atherosclerosis. Thereis an intrathoracic stomach. Evaluation of abdominal viscera is limited by the vascular phase ofcontrast. There is a 1.6 cm left ovarian cyst. The left kidney is atrophic comparedto the right, and there are multiple peripheral wedge defects in the left renal parenchyma. Visualized skeleton shows degenerative changes. No evidence for anysuspicious lytic or blastic lesions. IMPRESSION: * Segmental occlusion of the proximal left subclavian artery, with an additional severe stenosis of the mid left subclavian artery after thetakeoff of the left vertebral artery. * Otherwise normal left upper extremity arteries. * Incidental severe stenosis of the dominant left renal artery withatrophic left kidney. * Intrathoracic stomach. * Indeterminate 4 mm left upper lobe apex pulmonary nodule. RECOMMENDATION: Chest CT in 12 months for the lung nodule. This report has been forwarded to an automated communication system whichwill electronically notify appropriate providers of potentially importantfindings. Arcenio Wolf MD, RY IMG CT EXTREMITY Fi nal Result documented in this encounter Visit Diagnoses Diagnosis Subclavian arterial stenosis documented in this encounter Care Teams Instructor Dramatic Arts Relationship Specialty Start Date End Date Po, Edwin Pulliam MD [address] [place] [address] Drive [address] [place] [address] PCP - General 05/30/14 documented as of this encounter Additional Source Comments The information contained in this document represents components of the legal health record. It is not the complete legal health record.[facility]
--- OUTSIDE RECORDS SUMMARY | 2025-07-27 15:37 | XMS_ITS | Encounter Summary ---
Author Organization [facility] Address [address] [place] [address] Care Team Providers Care Coupon Manifest Clerk Name Role Phone Edwin Allen MD Primary Care Provider [phone] Encounter Details Date Type Department Care Team (Late st Contact Info) Description 03/23/2025 Lab Requisition [facility] - Main Lab [address] [facility] [place] [address] Cindy Thomas PA [address] [place] [address] [facility] [place] [address] Urinary tract infection, site not specified Social History Tobacco Use Types Packs/Day Years [...] Procedure Name Priority Date/Time Associated Diagnosis Comments URINALYSIS WITH REFLEX MICROSCOPIC Routine 03/23/2025 12:00 AM EDT Urinary tract infection, site not specified URINALYSIS WITH REFLEX MICROSCOPIC Routine 03/23/2025 12:00 AM EDT Urinary tract infection, site not specified CULTURE URINE Routine 03/23/2025 12:00 AM EDT Urinary tract infection, site not specified documented in this encounter Results * (ABNORMAL) Urinalysis with reflex microscopic (03/23/2025 12:00 AM EDT) Specific [place] Urine 1.014 1.003 - 1.030 LAB URINALYSIS - AUTOMATED METHOD 03/23/2025 11:03 AM [facility] pH, Urine 6.5 5.0 - 8.0 pH LAB URINALYSIS - AUTOMATED METHOD 03/23/2025 11:03 AM [facility] Leukocytes, Urine Large(A) Negative LAB URINALYSIS - AUTOMATED METHOD 03/23/2025 11:03 AM [facility] Nitrite, Urine Positive(A) Negative LAB URINALYSIS - AUTOMATED METHOD 03/23/2025 11:03 AM [facility] Protein, Urine Negative <=Trace mg/dL LAB URINALYSIS - AUTOMATED METHOD 03/23/2025 11:03 AM [facility] Glucose, Urine Negative Negative mg/dL LAB URINALYSIS - AUTOMATED METHOD 03/23/2025 11:03 AM [facility] Ketones, Urine Negative Negative mg/dL LAB URINALYSIS - AUTOMATED METHOD 03/23/2025 11:03 AM [facility] Urobilinogen , Urine 1.0 0.2 - 1.0 mg/dL LAB URINALYSIS - AUTOMATED METHOD 03/23/2025 11:03 AM [facility] Bilirubin, Urine Negative Negative LAB URINALYSIS - AUTOMATED METHOD 03/23/2025 11:03 AM [facility] Blood, Urine Trace(A) Negative LAB URINALYSIS - AUTOMATED METHOD 03/23/2025 11:03 AM [facility] RBC, Urine 2.8 0 - 4 /HPF LAB URINALYSIS - AUTOMATED METHOD 03/23/2025 11:03 AM [facility] WBC, Urine 51.0(H) 0 - 4 /HPF LAB URINALYSIS - AUTOMATED METHOD 03/23/2025 11:03 AM [facility] Squamous Epithelial, Urine 4 0 - 60 /LPF LAB URINALYSIS - AUTOMATED METHOD 03/23/2025 11:03 AM EDT [facility] Bacteria, Urine Many(A) Negative /HPF LAB URINALYSIS - AUTOMATED METHOD 03/23/2025 11:03 AM EDT [facility] Hyaline Casts, Urine 2.4 0 - 3 /LPF LAB URINALYSIS - AUTOMATED METHOD 03/23/2025 11:03 AM EDT [facility] Urine Urine specimen obtained by clean catch procedure / Unknown Non-blood Collection / Unknown 03/23/2025 03/23/2025 10:35 AM EDT us Cindy ROWE LAB URINE ORDERABLES Final Resu lt [facility] [address] [place] [address], [place] [phone] * (ABNORMAL) Culture urine (03/23/2025 12:00 AM EDT) Culture, Urine >100,000 CFU/mL Escherichia coli(A) NENA 03/25/2025 11:32 AM EDT [facility] Urine Urine specimen obtained by clean catch procedure / Unknown Non-blood Collection / Unknown 03/23/2025 03/23/2025 10:35 AM EDT Narrative Organism Antibiotic Method Susceptibility Escherichia coli Amoxicillin/Clavulanate NENA <=2 ug/ml: Susceptible Escherichia coli Ampicillin/Sulbactam NENA <=2 ug/ml: Susceptible Escherichia coli Piperacillin/Tazobactam NENA <=4 ug/ml: Susceptible Escherichia coli Cefazolin (Urine) NENA <=1 ug/ml: Susceptible Escherichia coli Cefoxitin NENA <=4 ug/ml: Susceptible Escherichia coli Ceftazidime NENA <=0.5 ug/ml: Susceptible Escherichia coli Ceftriaxone NENA <=0.25 ug/ml: Susceptible Escherichia coli Cefepime NENA <=0.12 ug/ml: Susceptible Escherichia coli Meropenem NENA <=0.25 ug/ml: Susceptible Escherichia coli Amikacin NENA <=1 ug/ml: Susceptible Escherichia coli Gentamicin NENA <=1 ug/ml: Susceptible Escherichia coli Ciprofloxacin NENA <=0.06 ug/ml: Susceptible Escherichia coli Levofloxacin NENA <=0.12 ug/ml: Susceptible Escherichia coli Nitrofurantoin NENA 32 ug/ml: Susceptible Escherichia coli Trimethoprim/Sulfamethoxazole NENA <=20 ug/ml: Susceptible us Cindy ROWE LAB MICROBIOLOGY - GENERAL ALYCIA TOBIAS Final Result [facility] ([facility] [address] [place] [address], documented in this encounter Visit Diagnoses Diagnosis Urinary tract infection, site not specified documented in this encounter Care Teams Coupon Manifest Clerk Relationship Specialty Start Date End Date Edwin Allen MD [address] [place] [address] [address] [facility] [place] [address] PCP - General Internal Medicine 10/26/18 documented as of this encounter
--- OUTSIDE RECORDS SUMMARY | 2025-07-27 15:37 | XMS_ITS | Encounter Summary ---
Author Organization [facility] Address [address] [place] [address] Care Team Providers Care Physical Scientist Name Role Phone Edwin Allen MD Primary Care Provider [phone] Encounter Details Date Type Department Care Team (Late st Contact Info) Description 03/13/2025 Lab Requisition [facility] - Main Lab 299 [facility] [place] [address] Peg Yañez MD [address] [place] [address] Heart failure, unspecified (CMS/HCC V24, CMS/HCC V28) [...] Associated Diagnosis Comments COMPLETE BLOOD COUNT Routine 03/13/2025 5:29 AM EDT Heart failure, unspecified (CMS/HCC V24, CMS/HCC V28) THYROID STIMULATING HORMONE Routine 03/13/2025 5:29 AM EDT Heart failure, unspecified (CMS/HCC V24, CMS/HCC V28) FOLATE Routine 03/13/2025 5:29 AM EDT Heart failure, unspecified (CMS/HCC V24, CMS/HCC V28) VITAMIN B12 Routine 03/13/2025 5:29 AM EDT Heart failure, unspecified (CMS/HCC V24, [facility] V28) COMPREHENSIVE METABOLIC PANEL Routine 03/13/2025 5:29 AM EDT Heart failure, unspecified ([facility]/HCC V24, CMS/HCC V28) documented in this encounter Results * (ABNORMAL) Folate (03/13/2025 5:29 AM EDT) [facility] Folate >20.0(H) 2.8 - 17.0 ng/ml LAB CHEMISTRY METHOD 03/13/2025 3:05 PM EDT [facility] Blood Venous blood specimen / Unknown Venipuncture / Unknown 03/13/2025 5:29 AM EDT 03/13/2025 11:41 AM EDT us Peg Yañez MD LAB BLOOD ORDERABLES Final Resul t Performing Organization Address City/[facility]/ZIP Co de Phone Number [facility] [address] [place] [address], [place] [phone] * Vitamin B12 (03/13/2025 5:29 AM EDT) [facility] Vitamin B-12 813 250 - 900 pcg/mL LAB CHEMISTRY METHOD 03/13/2025 3:05 PM EDT [facility] Blood Venous blood specimen / Unknown Venipuncture / Unknown 03/13/2025 5:29 AM EDT 03/13/2025 11:41 AM EDT us Peg Yañez MD LAB BLOOD ORDERABLES Final Resul t Performing Organization Address City/[facility]/ZIP Co de Phone Number [facility] [address] [place] [address], [place] [phone] * (ABNORMAL) Thyroid stimulating hormone (03/13/2025 5:29 AM EDT) [facility] TSH 0.11(L) 0.40 - 4.00 mcIU/mL LAB CHEMISTRY METHOD 03/13/2025 3:59 PM [facility] Blood Venous blood specimen / Unknown Venipuncture / Unknown 03/13/2025 5:29 AM EDT 03/13/2025 11:41 AM EDT us Peg Yañez MD LAB BLOOD ORDERABLES Final Resul t [facility] [address] [place] [address], [place] [phone] * (ABNORMAL) Comprehensive metabolic panel (03/13/2025 5:29 AM EDT) Sodium 137 133 - 145 mmol/L LAB CHEMISTRY METHOD 03/13/2025 3:05 PM [facility] Potassium 3.5 3.5 - 5.5 mmol/L LAB CHEMISTRY METHOD 03/13/2025 3:05 PM [facility] Chloride 100 96 - 110 mmol/L LAB CHEMISTRY METHOD 03/13/2025 3:05 PM [facility] CO2 28 21 - 32 mmol/L LAB CHEMISTRY METHOD 03/13/2025 3:05 PM [facility] Anion Gap 9 3 - 11 LAB CHEMISTRY METHOD 03/13/2025 3:05 PM [facility] Glucose 69(L) 70 - 100 mg/dL LAB CHEMISTRY METHOD 03/13/2025 3:05 PM [facility] BUN 33(H) 5 - 25 mg/dL LAB CHEMISTRY METHOD 03/13/2025 3:05 PM [facility] Creatinine 1.40(H) 0.50 - 1.10 mg/dL LAB CHEMISTRY METHOD 03/13/2025 3:05 PM [facility] eGFR 37(L) >=60 mL/min/1. 73m2 LAB CHEMISTRY METHOD 03/13/2025 3:05 PM [facility] Comment:Calculation based on the Chronic Kidney Disease Epidemiology Collaboration (CKD-EPI) equation refit without adjustment for race. BUN/Creatinine Ratio 23.6 LAB CHEMISTRY METHOD 03/13/2025 3:05 PM [facility] Calcium 8.7 8.5 - 10.5 mg/dL LAB CHEMISTRY METHOD 03/13/2025 3:05 PM [facility] AST (SGOT) 20 10 - 42 unit/L LAB CHEMISTRY METHOD 03/13/2025 3:05 PM [facility] ALT (SGPT) 16 10 - 60 unit/L LAB CHEMISTRY METHOD 03/13/2025 3:05 PM [facility] Alkaline Phosphatase 99 42 - 121 unit/L LAB CHEMISTRY METHOD 03/13/2025 3:05 PM [facility] Total Protein 6.7 6.0 - 8.0 g/dL LAB CHEMISTRY METHOD 03/13/2025 3:05 PM [facility] Albumin 2.6(L) 3.2 - 5.0 g/dL LAB CHEMISTRY METHOD 03/13/2025 3:05 PM [facility] Total Bilirubin 0.9 0.0 - 1.4 mg/dL LAB CHEMISTRY METHOD 03/13/2025 3:05 PM [facility] Blood Venous blood specimen / Unknown Venipuncture / Unknown 03/13/2025 5:29 AM EDT 03/13/2025 11:41 AM EDT us Peg Yañez MD LAB BLOOD ORDERABLES Final Resul t [facility] [address] [place] [address], * (ABNORMAL) Complete blood count (03/13/2025 5:29 AM EDT) Pathologist [facility] WBC 7.4 4.8 - 10.8 K/mcL LAB HEMETOLOGY METHOD 03/13/2025 12:46 PM [facility] RBC 3.80 3.80 - 4.80 M/mcL LAB HEMETOLOGY METHOD 03/13/2025 12:46 PM [facility] Hemoglobin 11.6 11.5 - 16.0 g/dL LAB HEMETOLOGY METHOD 03/13/2025 12:46 PM [facility] Hematocrit 35.0 35.0 - 47.0 % LAB HEMETOLOGY METHOD 03/13/2025 12:46 PM [facility] MCV 92.1 79.0 - 98.0 FL LAB HEMETOLOGY METHOD 03/13/2025 12:46 PM [facility] MCH 30.5 27.0 - 32.0 pcg LAB HEMETOLOGY METHOD 03/13/2025 12:46 PM [facility] MCHC 33.1 32.0 - 37.0 g/dL LAB HEMETOLOGY METHOD 03/13/2025 12:46 PM [facility] RDW 13.8 11.0 - 15.0 % LAB HEMETOLOGY METHOD 03/13/2025 12:46 PM [facility] Platelets 262 130 - 400 K/[facility] LAB HEMETOLOGY METHOD 03/13/2025 12:46 PM [facility] MPV 11.1(H) 7.0 - 11.0 FL LAB HEMETOLOGY METHOD 03/13/2025 12:46 PM [facility] NRBC 0.0 <1.0 % LAB HEMETOLOGY METHOD 03/13/2025 12:46 PM [facility] NRBC Absolute 0.00 <0.10 K/[facility] LAB HEMETOLOGY METHOD 03/13/2025 12:46 PM [facility] Blood Venous blood specimen / Unknown Venipuncture / Unknown 03/13/2025 5:29 AM EDT 03/13/2025 11:41 AM EDT Peg Yañez MD LAB BLOOD ORDERABLES Final Resul t [facility] ([facility] [address] [place] [address], documented in this encounter Visit Diagnoses Diagnosis Heart failure, unspecified (CMS/HCC V24, CMS/HCC V28) Heart failure, unspecified documented in this encounter Care Teams Physical Scientist Relationship Specialty Start Date End Date Edwin Allen MD [address] [place] [address] [address] [facility] [place] [address] PCP - General Internal Medicine 10/26/18 documented as of this encounter
--- OUTSIDE RECORDS SUMMARY | 2025-07-27 15:37 | XMS_ITS | Encounter Summary ---
Author Organization [facility] Address [address] [place] [address] [place] [address] Phone Care Team Providers Care Manager Adult Name Role Phone Edwin Allen MD Primary Care Provider [phone] Encounter Details Date Type Department Care Team (Late st Contact Info) Description 10/26/2019 Ancillary Orders Arcenio Wolf MD - [address] [address] Arcenio Wolf MD, RY [address] [place] [address], Floor 2 [place] [address] [email or web address] Atherosclerosis of [place] artery of both lower extremities with intermittent claudication Social History Tobacco Use Types Packs/Day Years [...] Entry Date Author No 06/30/2017 12:11 PM EDLanette Alexandre NP documented in this encounter Plan of Treatment Not on file documented as of this encounter Visit Diagnoses Diagnosis Atherosclerosis of [place] artery of both lower extremities with intermittent claudication documented in this encounter Care Teams Manager Adult Relationship Specialty Start Date End Date Edwin Allen MD [address] [place] [address] Drive [address] [place] [id number] PCP - General 05/30/14 documented as of this encounter Additional Source Comments The information contained in this document represents components of the legal health record. It is not the complete legal health record.[facility]
--- OUTSIDE RECORDS SUMMARY | 2025-07-27 15:37 | XMS_ITS | Encounter Summary ---
Author Organization [facility] Address [address] [place] [address] Care Team Providers Care Advanced Seal Delivery System Name Role Phone Edwin Allen MD Primary Care Provider Encounter Details Date Type Department Care Team (Late st Contact Info) Description 03/31/2025 Lab Requisition [facility] - Main Lab 299 [facility] [place] [address] Peg Yañez MD [address] [place], [place] [id number] Heart failure, unspecified (CMS/HCC V24, CMS/HCC V28) [...] unspecified documented in this encounter Care Teams Advanced Seal Delivery System Relationship Specialty Start Date End Date Edwin Allen MD [address] [place] [address] [address] [facility] [place] [address] PCP - General Internal Medicine 10/26/18 documented as of this encounter
--- OUTSIDE RECORDS SUMMARY | 2025-07-27 15:37 | XMS_ITS | Patient Health Record ---
Author Organization [facility] Address [address] [place] [address] Care Team Providers Care Neuro Intensivist Physician Name Role Phone Edwin Allen Primary Care Provider Unavailabl e EdwardCarmen Unavailable [phone] Allergies Allergen (clinical drug ingredient) Drug/Non Drug [...] Once a day; Duration: 30 day(s) Active Armakrishna Aspirin Active Problems Problem Type SNOMED Code ICD Code Onset Dates Problem Status W/U Status Risk Notes Problem Hallux valgus (759122896) Hallux Valgus (735.0) Active confirmed Problem Hammer toe (232623810) Hammer toe (735.4) Active confirmed Problem Pain in limb (87312032) Pain in Limb (729.5) Active confirmed Plan Of Treatment Pending Test Test Name Order Date X ray : Foot, right 3V 03/09/2012 Insurance Providers Payer Name Payer Address Payer Phone Subscriber Number Group Number Insured Name Patient Relationship to Insured Coverage Start Date Coverage End Date Medicare National [employer] [address] [place] [phone] [id number] Bethany Brooke Self - patient is the insured [facility] [address] [place] [address] [id number] Bethany Brooke Self - patient is the insured Medical (General) History Medical History History ICD Code anemia anxiety Cholesterol depression osteoporosis poor circulation Surgical History Surgery Date(Month/Year) eye surgery 02/2007 stints 2007, 2008
--- OUTSIDE RECORDS SUMMARY | 2025-07-27 15:37 | XMS_ITS | Encounter Summary ---
Author Organization [facility] Address [address] [facility] [address] [place] [address] Phone Care Team Providers Care Under Water Assistant Name Role Phone Edwin Allen MD Primary Care Provider [phone] Encounter Details Date Type Department Care Team (Late st Contact Info) Description 05/01/2017 Ancillary Orders Arcenio Wolf MD - [address] [address] Arcenio Wolf MD, RY [address] [place] [address], Floor 2 [place] [address] [email or web address] Social History Tobacco Use Types Packs/Day Years [...] on filedocumented in this encounter Care Teams Under Water Assistant Relationship Specialty Start Date End Date Edwin Allen MD [address] [place] [address] PCP - General 05/30/14 documented as of this encounter Additional Source Comments The information contained in this document represents components of the legal health record. It is not the complete legal health record.[facility]
--- OUTSIDE RECORDS SUMMARY | 2025-07-27 15:37 | XMS_ITS | Encounter Summary ---
Author Organization [facility] Address [address] [place] [address] Care Team Providers Care Test Administrator Name Role Phone Edwin Allen MD Primary Care Provider [phone] Encounter Details Date Type Department Care Team (Late st Contact Info) Description 03/24/2025 Lab Requisition [facility] - Main Lab 299 [facility] [place] [address] Peg Yañez MD [address] [place] [address] Heart failure, unspecified (CMS/HCC V24, [...] Associated Diagnosis Comments COMPLETE BLOOD COUNT Routine 03/27/2025 5:06 AM EDT Heart failure, unspecified (CMS/HCC V24, CMS/HCC V28) BASIC METABOLIC PANEL Routine 03/27/2025 5:06 AM EDT Heart failure, unspecified (CMS/HCC V24, CMS/HCC V28) documented in this encounter Results * (ABNORMAL) Basic metabolic panel (03/27/2025 5:06 AM EDT) Sodium 137 133 - 145 mmol/L LAB CHEMISTRY METHOD 03/27/2025 1:58 PM T [facility] Potassium 4.1 3.5 - 5.5 mmol/L LAB CHEMISTRY METHOD 03/27/2025 1:58 PM T [facility] Chloride 104 96 - 110 mmol/L LAB CHEMISTRY METHOD 03/27/2025 1:58 PM [facility] CO2 25 21 - 32 mmol/L LAB CHEMISTRY METHOD 03/27/2025 1:58 PM [facility] Anion Gap 8 3 - 11 LAB CHEMISTRY METHOD 03/27/2025 1:58 PM [facility] Glucose 76 70 - 100 mg/dL LAB CHEMISTRY METHOD 03/27/2025 1:58 PM [facility] BUN 17 5 - 25 mg/dL LAB CHEMISTRY METHOD 03/27/2025 1:58 PM [facility] Creatinine 1.16(H) 0.50 - 1.10 mg/dL LAB CHEMISTRY METHOD 03/27/2025 1:58 PM [facility] eGFR 47(L) >=60 mL/min/1. 73m2 LAB CHEMISTRY METHOD 03/27/2025 1:58 PM [facility] Comment:Calculation based on the Chronic Kidney Disease Epidemiology Collaboration (CKD-EPI) equation refit without adjustment for race. BUN/Creatinine Ratio 14.7 LAB CHEMISTRY METHOD 03/27/2025 1:58 PM [facility] Calcium 8.4(L) 8.5 - 10.5 mg/dL LAB CHEMISTRY METHOD 03/27/2025 1:58 PM [facility] Blood Venous blood specimen / Unknown Venipuncture / Unknown 03/27/2025 5:06 AM EDT 03/27/2025 10:13 AM EDT us Peg Yañez MD LAB BLOOD ORDERABLES Final Resul t [facility] [address] [place] [address], * (ABNORMAL) Complete blood count (03/27/2025 5:06 AM EDT) [facility] Signature WBC 6.7 4.8 - 10.8 K/mcL LAB HEMETOLOGY METHOD 03/27/2025 11:09 AM [facility] RBC 3.60(L) 3.80 - 4.80 M/mcL LAB HEMETOLOGY METHOD 03/27/2025 11:09 AM [facility] Hemoglobin 11.0(L) 11.5 - 16.0 g/dL LAB HEMETOLOGY METHOD 03/27/2025 11:09 AM [facility] Hematocrit 33.3(L) 35.0 - 47.0 % LAB HEMETOLOGY METHOD 03/27/2025 11:09 AM [facility] MCV 92.5 79.0 - 98.0 FL LAB HEMETOLOGY METHOD 03/27/2025 11:09 AM [facility] MCH 30.6 27.0 - 32.0 pcg LAB HEMETOLOGY METHOD 03/27/2025 11:09 AM [facility] MCHC 33.0 32.0 - 37.0 g/dL LAB HEMETOLOGY METHOD 03/27/2025 11:09 AM [facility] RDW 14.0 11.0 - 15.0 % LAB HEMETOLOGY METHOD 03/27/2025 11:09 AM [facility] Platelets 203 130 - 400 K/mcL LAB HEMETOLOGY METHOD 03/27/2025 11:09 AM [facility] MPV 10.8 7.0 - 11.0 FL LAB HEMETOLOGY METHOD 03/27/2025 11:09 AM [facility] NRBC 0.0 <1.0 % LAB HEMETOLOGY METHOD 03/27/2025 11:09 AM EDT [facility] NRBC Absolute 0.00 <0.10 K/mcL LAB HEMETOLOGY METHOD 03/27/2025 11:09 AM EDT [facility] Blood Venous blood specimen / Unknown Venipuncture / Unknown 03/27/2025 5:06 AM EDT 03/27/2025 10:13 AM EDT us Peg Yañez MD LAB BLOOD ORDERABLES Final Resul t [facility] [address] [place] [address], documented in this encounter Visit Diagnoses Diagnosis Heart failure, unspecified (CMS/HCC V24, CMS/HCC V28) Heart failure, unspecified documented in this encounter Care Teams Test Administrator Relationship Specialty Start Date End Date Edwin Allen MD [address] [place] [address] [address] [facility] [place] [address] PCP - General Internal Medicine 10/26/18 documented as of this encounter
--- OUTSIDE RECORDS SUMMARY | 2025-07-27 15:37 | XMS_ITS | Encounter Summary ---
Author Organization [facility] Address [address] [place] [address] Care Team Providers Care Cobol Engineer Name Role Phone Edwin Allen MD Primary Care Provider [phone] Encounter Details Date Type Department Care Team (Late st Contact Info) Description 03/22/[address] [facility] - Main Lab 299 [facility] [place] [address] Peg Yañez MD [address] [place], [place] [id number] Hypotension, unspecified Social History Tobacco Use Types [...] LAB CHEMISTRY METHOD 03/22/2025 10:55 AM EDT [facility] Potassium 4.5 3.5 - 5.5 mmol/L LAB CHEMISTRY METHOD 03/22/2025 10:55 AM [facility] Chloride 102 96 - 110 mmol/L LAB CHEMISTRY METHOD 03/22/2025 10:55 AM [facility] CO2 28 21 - 32 mmol/L LAB CHEMISTRY METHOD 03/22/2025 10:55 AM [facility] Anion Gap 7 3 - 11 LAB CHEMISTRY METHOD 03/22/2025 10:55 AM [facility] Glucose 73 70 - 100 mg/dL LAB CHEMISTRY METHOD 03/22/2025 10:55 AM [facility] BUN 42(H) 5 - 25 mg/dL LAB CHEMISTRY METHOD 03/22/2025 10:55 AM [facility] Creatinine 1.53(H) 0.50 - 1.10 mg/dL LAB CHEMISTRY METHOD 03/22/2025 10:55 AM [facility] eGFR 34(L) >=60 mL/min/1. 73m2 LAB CHEMISTRY METHOD 03/22/2025 10:55 AM [facility] Comment:Calculation based on the Chronic Kidney Disease Epidemiology Collaboration (CKD-EPI) equation refit without adjustment for race. BUN/Creatinine Ratio 27.5 LAB CHEMISTRY METHOD 03/22/2025 10:55 AM [facility] Calcium 8.5 8.5 - 10.5 mg/dL LAB CHEMISTRY METHOD 03/22/2025 10:55 AM [facility] Blood Venous blood specimen / Unknown Venipuncture / Unknown 03/22/2025 6:08 AM EDT 03/22/2025 9:27 AM EDT us Peg Yañez MD LAB BLOOD ORDERABLES Final Resul t [facility] [address] [place] [address], * (ABNORMAL) Complete blood count (03/22/2025 6:08 AM EDT) [facility] WBC 7.2 4.8 - 10.8 K/mcL LAB HEMETOLOGY METHOD 03/22/2025 11:00 AM [facility] RBC 3.70(L) 3.80 - 4.80 M/mcL LAB HEMETOLOGY METHOD 03/22/2025 11:00 AM [facility] Hemoglobin 11.4(L) 11.5 - 16.0 g/dL LAB HEMETOLOGY METHOD 03/22/2025 11:00 AM [facility] Hematocrit 34.3(L) 35.0 - 47.0 % LAB HEMETOLOGY METHOD 03/22/2025 11:00 AM [facility] MCV 92.5 79.0 - 98.0 FL LAB HEMETOLOGY METHOD 03/22/2025 11:00 AM [facility] MCH 30.7 27.0 - 32.0 pcg LAB HEMETOLOGY METHOD 03/22/2025 11:00 AM [facility] MCHC 33.2 32.0 - 37.0 g/dL LAB HEMETOLOGY METHOD 03/22/2025 11:00 AM [facility] RDW 14.0 11.0 - 15.0 % LAB HEMETOLOGY METHOD 03/22/2025 11:00 AM [facility] Platelets 252 130 - 400 K/mcL LAB HEMETOLOGY METHOD 03/22/2025 11:00 AM [facility] MPV 10.8 7.0 - 11.0 FL LAB HEMETOLOGY METHOD 03/22/2025 11:00 AM [facility] NRBC 0.0 <1.0 % LAB HEMETOLOGY METHOD 03/22/2025 11:00 AM [facility] NRBC Absolute 0.00 <0.10 K/mcL LAB HEMETOLOGY METHOD 03/22/2025 11:00 AM EDT [facility] Blood Venous blood specimen / Unknown Venipuncture / Unknown 03/22/2025 6:08 AM EDT 03/22/2025 9:27 AM EDT us Peg Yañez MD LAB BLOOD ORDERABLES Final Resul t [facility] [address] [place] [address], documented in this encounter Visit Diagnoses Diagnosis Hypotension, unspecified documented in this encounter Care Teams Cobol Engineer Relationship Specialty Start Date End Date Edwin Allen MD [address] [place] [address] [address] [facility] [place] [address] PCP - General Internal Medicine 10/26/18 documented as of this encounter
--- OUTSIDE RECORDS SUMMARY | 2025-07-27 15:37 | XMS_ITS | Encounter Summary ---
Author Organization [facility] Address [address] [place] [address] Phone Care Team Providers Care Deep Submergence Vehicle Operator Name Role Phone Edwin Allen MD Primary Care Provider [phone] Encounter Details Date Type Department Care Team (Late st Contact Info) Description 06/29/2017 Procedure Pass [facility] [address] [place] [address] Social History Tobacco Use Types Packs/Day Years [...] on filedocumented in this encounter Care Teams Deep Submergence Vehicle Operator Relationship Specialty Start Date End Date Edwin Allen MD [address] [place] [address] PCP - General 05/30/14 documented as of this encounter Additional Source Comments The information contained in this document represents components of the legal health record. It is not the complete legal health record.[facility]
--- OUTSIDE RECORDS SUMMARY | 2025-07-27 15:37 | XMS_ITS | Encounter Summary ---
Author Organization [facility] Address [address] [place] [address] Phone Care Team Providers Care Roof Promenade Tile Setter Name Role Phone Edwin Allen MD Primary Care Provider [phone] Encounter Details Date Type Department Care Team (Late st Contact Info) Description 05/01/2017 Ancillary Orders Arcenio Wolf MD - [address] [address] Arcenio Wolf MD, RY [address] [place] [address], [address] 2 [place] [address] [email or web address] Social History Tobacco Use Types Packs/Day Years [...] on filedocumented in this encounter Care Teams Roof Promenade Tile Setter Relationship Specialty Start Date End Date Edwin Allen MD [address] [place] [phone] PCP - General 05/30/14 documented as of this encounter Additional Source Comments The information contained in this document represents components of the legal health record. It is not the complete legal health record.[facility]
--- OUTSIDE RECORDS SUMMARY | 2025-07-27 15:37 | XMS_ITS | Clinical Summary ---
Author Organization [facility] Address [address] [place] [address] Phone Care Team Providers Care Municipal Court Judge Name Role Phone Edwin Allen MD Primary Care Provider [phone] Allergies Active Allergy Reactions Criticality Noted Date [...] this topic Insurance Medicare Medicare Care Teams Municipal Court Judge Relationship Specialty Start Date End Date Edwin Allen MD [address] [place] PCP - General 12/10/20
--- OUTSIDE RECORDS SUMMARY | 2025-07-27 15:37 | XMS_ITS | Encounter Summary ---
Author Organization [facility] Address [address] [place] [address] Care Team Providers Care Computer Customer Support Specialist Name Role Phone Edwin Allen MD Primary Care Provider [phone] Encounter Details Date Type Department Care Team (Late st Contact Info) Description 03/18/2025 Lab Requisition [facility] - Main Lab [address] [facility] [place] [address] Peg Yañez MD [address] [place] [address] Heart failure, unspecified (CMS/HCC V24, [...] Associated Diagnosis Comments COMPLETE BLOOD COUNT Routine 03/20/2025 5:06 AM EDT Heart failure, unspecified (CMS/HCC V24, CMS/HCC V28) BASIC METABOLIC PANEL Routine 03/20/2025 5:06 AM EDT Heart failure, unspecified (CMS/HCC V24, CMS/HCC V28) documented in this encounter Results * (ABNORMAL) Basic metabolic panel (03/20/2025 5:06 AM EDT) Sodium 139 133 - 145 mmol/L LAB CHEMISTRY METHOD 03/20/2025 2:39 PM [facility] Potassium 4.0 3.5 - 5.5 mmol/L LAB CHEMISTRY METHOD 03/20/2025 2:39 PM [facility] Chloride 102 96 - 110 mmol/L LAB CHEMISTRY METHOD 03/20/2025 2:39 PM [facility] CO2 28 21 - 32 mmol/L LAB CHEMISTRY METHOD 03/20/2025 2:39 PM [facility] Anion Gap 9 3 - 11 LAB CHEMISTRY METHOD 03/20/2025 2:39 PM [facility] Glucose 71 70 - 100 mg/dL LAB CHEMISTRY METHOD 03/20/2025 2:39 PM [facility] BUN 42(H) 5 - 25 mg/dL LAB CHEMISTRY METHOD 03/20/2025 2:39 PM [facility] Creatinine 1.51(H) 0.50 - 1.10 mg/dL LAB CHEMISTRY METHOD 03/20/2025 2:39 PM [facility] eGFR 34(L) >=60 mL/min/1. 73m2 LAB CHEMISTRY METHOD 03/20/2025 2:39 PM [facility] Comment:Calculation based on the Chronic Kidney Disease Epidemiology Collaboration (CKD-EPI) equation refit without adjustment for race. BUN/Creatinine Ratio 27.8 LAB CHEMISTRY METHOD 03/20/2025 2:39 PM [facility] Calcium 9.5 8.5 - 10.5 mg/dL LAB CHEMISTRY METHOD 03/20/2025 2:39 PM [facility] Blood Venous blood specimen / Unknown Venipuncture / Unknown 03/20/2025 5:06 AM EDT 03/20/2025 11:09 AM EDT us Peg Yañez MD LAB BLOOD ORDERABLES Final Resul t [facility] [address] [place] [address], * Complete blood count (03/20/2025 5:06 AM EDT) [facility] WBC 6.9 4.8 - 10.8 K/mcL LAB HEMETOLOGY METHOD 03/20/2025 11:56 AM EDT [facility] RBC 4.00 3.80 - 4.80 M/mcL LAB HEMETOLOGY METHOD 03/20/2025 11:56 AM EDT [facility] Hemoglobin 12.0 11.5 - 16.0 g/dL LAB HEMETOLOGY METHOD 03/20[facility]2025 [facility] Hematocrit 36.3 35.0 - 47.0 % LAB HEMETOLOGY METHOD 03/20/2025 11:56 [facility] MCV 90.5 79.0 - 98.0 FL LAB HEMETOLOGY METHOD 03/20/2025 11:56 AM EDT [facility] MCH 29.9 27.0 - 32.0 pcg LAB HEMETOLOGY METHOD 03/20/2025 11:56 AM [facility] MCHC 33.1 32.0 - 37.0 g/dL LAB HEMETOLOGY METHOD 03/20/2025 11:56 [facility] RDW 13.9 11.0 - 15.0 % LAB HEMETOLOGY METHOD 03/20/2025 11:56 AM EDT [facility] Platelets 292 130 - 400 K/mcL LAB HEMETOLOGY METHOD 03/20/2025 11:56 AM EDT [facility] MPV 10.7 7.0 - 11.0 FL LAB HEMETOLOGY METHOD 03/20/2025 11:56 AM EDT [facility] NRBC 0.0 <1.0 % LAB HEMETOLOGY METHOD 03/20/2025 11:56 AM EDT [facility] NRBC Absolute 0.00 <0.10 K/mcL LAB HEMETOLOGY METHOD 03/20/2025 11:56 AM EDT [facility] Blood Venous blood specimen / Unknown Venipuncture / Unknown 03/20/2025 5:06 AM EDT 03/20/2025 11:09 AM EDT us Peg Yañez MD LAB BLOOD ORDERABLES Final Resul t [facility] [address] [place] [address], documented in this encounter Visit Diagnoses Diagnosis Heart failure, unspecified (CMS/HCC V24, CMS/HCC V28) Heart failure, unspecified documented in this encounter Care Teams Computer Customer Support Specialist Relationship Specialty Start Date End Date Edwin Allen MD [address] [place] [address] Dr [address] [facility] [place] [address] PCP - General Internal Medicine 10/26/18 documented as of this encounter
== END 2025-07-27 15:02 | disposition home or self-care (01) ==
LOC: HO.HOS 14:55
PROVIDERS: PCP Internal Medicine; Visit Provider Orthopaedic Surgery
DX: M25.312 Other instability, left shoulder (principal)
CPT/HCPCS: 99213; G2211

== ENCOUNTER 2025-08-19 14:05 | Inpatient (IN) | payer MEDICARE, SELFPAY ==
[2022-10-20 12:25] VITALS: BP 116/64; BMI 28.6
--- NOTE | ~2025-08-19 | XR_ITS ---
CLINICAL HISTORY: SOB Chest radiograph PA and lateral views Comparison: CR/SR - XR CHEST 2 VIEWS - 02/28/25 15:25 EDT Findings: Stable cardiomegaly, status post median sternotomy and left atrial appendage ligation. Large hiatal hernia with at least part of stomach in the left thorax. Left upper lobe parenchymal scar is unchanged. No consolidation, pleural effusion or pneumothorax. Uncoiling of the thoracic aorta, same as before. No acute fracture. Unremarkable chest wall soft tissue. Impression: 1. No acute pulmonary finding. 2. Stable cardiomegaly with postsurgical changes. 3. Large hiatal hernia. This document has been electronically signed by: Rody Contreras MD on 08/19/2025 16:40:26
[2025-08-19 14:16] VITALS: BP 119/56; PULSE 72; RESP 18; TEMP 36.6; O2SAT 96; BMI 25.9
--- NOTE | 2025-08-19 14:17 | ED_ITS ---
HPI - General Adult General Chief complaint: General Medical Stated complaint: symptom of CHF Time Seen by Provider: 08/19/25 15:23 Source: patient and family Mode of arrival: wheelchair Limitations: no limitations History of Present Illness ED Provider: Radha Epstein APRN HPI narrative: 84-year-old female with past medical history of diastolic CHF on 40 mg of Lasix b.i.d., atrial fibrillation anticoagulated on Eliquis, CAD s/p CABG, hypertension, hiatal hernia with Roger's esophagus who presents to the ER with an 8 lb weight gain over the last 2 weeks with cough and shortness of breath over the last few days. Patient also complaining of generalized fatigue and not feeling well. She denies any chest pain, productive cough. She does report some leg swelling. She has been compliant with her medications. There is no reports of fevers, chills. Related Data Home Medications ?Medication ?Instructions ?Recorded ?Confirmed multivitamin 1 tab PO DAILY 09/04/2007/01 calcium carbonate 500 mg PO DAILY 12/03/21 cholecalciferol (vitamin D3) 25 25 mcg PO DAILY 07/27/25 mcg (1,000 unit) capsule Previous Rx's ?Medication ?Instructions ?Recorded metoprolol tartrate 25 mg tablet 25 mg PO BID 90 days #180 tabs 10/11/24 apixaban 5 mg tablet (Eliquis) 5 mg PO BID #180 tabs 1 01/18/24 nystatin 100,000 unit/gram topical 1 appl topical BID #1 g 03/03/25 cream lisinopril 2.5 mg tablet 2.5 mg PO DAILY #90 tabs 05/24 omeprazole 20 mg capsule,delayed 20 mg PO DAILY #180 c aps 07/12/25 release furosemide 40 mg tablet 40 mg PO BID@0900,1800 90 da ys 07/17/25 #180 tabs atorvastatin 40 mg tablet 40 mg PO BEDTIME #90 tabs Allergies Allergy/AdvReac Type Severity Reaction Status Date / Time latex Allergy Mild rash Verified 08/19/25 14:18 simvastatin (Simvastatin) Allergy Mild NAUSEA Verified 08/19/25 14:18 Review of Systems 2 Review of Systems: Yes all other systems are reviewed and are negative Constitutional: Constitutional: Reports no additional constitutional complaints, Denies body ache(s), Denies chills, Denies fever(s), Denies headache(s), Denies weakness and Reports weight gain Eyes: Eyes: Reports no additional eye complaints and Denies change in vision ENT: Reports system reviewed and no additional complaints, except as documented, Denies dizziness, Denies headache(s), Denies nasal congestion, Denies nasal discharge and Denies neck pain Cardiovascular: Cardiovascular: Reports no additional cardiovascular complaints, Denies chest pain, Denies leg edema and Reports dyspnea Respiratory: Respiratory: Reports no additional respiratory complaints, Reports cough and Reports dyspnea Gastrointestinal: Gastrointestinal: Reports no additional gastrointestinal complaints, Denies abdominal pain, Denies diarrhea, Denies nausea and Denies vomiting Genitourinary: Genitourinary: Reports no additional female genitourinary complaints and Denies urinary incontinence Musculoskeletal: Musculoskeletal: Reports no additional musculoskeletal complaints, Denies back pain, Denies arthralgias, Denies joint swelling, Denies neck pain, Denies numbness and Denies tingling Integumentary/Breasts: Skin/Breast: Reports system reviewed and no additional complaints, except as docu and Denies rash Neurologic: Reports system reviewed and no additional complaints, except as documented, Denies Abnormal speech present, Denies dizziness, Denies headache(s), Denies numbness, Denies tingling and Denies weakness PMFSH Past Medical History Attestation statement: The following information was validated with the patient. Source: old records reviewed and nursing notes reviewed Medical History Non-rheumatic mitral regurgitation CHF exacerbation Acute exacerbation of chronic heart failure Mitral valve regurgitation PAD (peripheral artery disease) Persistent atrial fibrillation CHF (congestive heart failure) Peripheral vascular disease Essential hypertension Chronic heart failure with preserved ejection fraction Atherosclerotic cardiovascular disease Cognitive impairment Coronary artery disease of bypass graft of [place] heart with stable angina pectoris Subclavian artery stenosis, left Colitis Bilateral femoral artery stenosis Hypercholesterolemia Roger's esophagus Surgical History Status post aorto-coronary artery bypass graft History of coronary artery bypass graft (~06/2020) Family History Family History Father No problems noted. Mother No problems noted. Social History Social History Household Members: Children Housing: House Do you presently have visiting nurse or other home services: No Alcohol intake: never Comment: 1-2 A year Patient Tobacco Use Status: Former Tobacco user Tobacco use type: Cigarette Years Smoked: quit in 1979 Smoked in Last 30 Days: No e-Cigarette/Vaping Use: Never Used Second Hand Smoke Exposure: No Use of substances other than those prescribed or required for medical reasons: No Advance Directives: No Advance Directives Information Provided: No Do you have a plan to hurt others: No Plan service: No Current occupational status: retired Cognitive needs: Yes (cane, transport wheelchair, Walker) Hearing needs: No Vision needs: Yes (glasses) Physical Exam ED Vital Signs: Vital Signs - 24 hr 08/19/25 14:16 08/19/25 15:23 08/19/25 16:52 Temperature 97.8 F Pulse Rate 72 65 79 Respiratory Rate 18 15 16 Blood Pressure 119/56 L 126/38 L 137/59 L Pulse Oximetry 96 96 97 Oxygen Delivery Method Room Air Room Air Room Air BMI result Body Mass Index 25.9 Const General: cooperative, healthy appearing, comfortable and no acute distress Orientation/consciousness: patient oriented x3 Limitations: no limitations HENMT Head: Yes normal to inspection Ears: hearing grossly normal bilaterally General nose exam: Normal external nose present Face and sinus: Yes normal facial exam Mouth: Normal oral and palatal mucosa present Throat: Yes posterior oropharynx normal Eyes General: appearance normal, both eyes and all related structures Pupils: Equal, round and reactive pupils present Neck Neck: Yes normal visual inspection Chest Chest palpation & inspection: normal inspection of the chest Resp Effort & Inspection: normal respiratory effort Auscultation: crackles Cardio Rate: regular rate Rhythm: regular rhythm Peripheral pulses: Peripheral pulses 2+ throughout GI Inspection: Yes normal to inspection Palpation (GI): Soft to palpation and nontender Auscultation: normal bowel sounds Back/Spine/Pelvis Thoracic/Lumbar Spine: thoracic and lumbar spine normal to inspection Skin General skin exam: no rashes or lesions noted Neuro General: patient oriented x3, no focal motor deficits and normal sensation to monofilament Cranial nerves: Yes Equal, round and reactive pupils present Cognition (Neuro): normal cognition Speech: No Abnormal speech present Gait exam (Neuro): Normal gait present Motor exam (neuro): 5/5 motor strength present throughout Extrem Other: Mild bilateral pitting edema General: Yes normal to inspection Course Course Course Narrative: This is an RME: Additional HPI, ROS, PE not included below will be deferred to primary provider. RME assessment and note performed by: Albania Allan PA-C This is a 85-year-old female, with a hx of a fib on eliquis, CKD, PAD, abnormal TSH, HTN, hypercholesterolemia, CHF, who presents to the ER with a complaint of cough, increased weight gain. No chest pain. Plan: Labs, EKG, Cxr, viral swabs Medications Administered Discontinued Medications Generic Name Dose Route Start Last Admin Trade Name Freq PRN Reason Stop Dose Admin Furosemide 40 mg 08/19/25 15:35 08/19/25 17:39 Furosemide 40 Mg/4 Ml Vial IVPUSH 08/19/25 15:36 40 mg STAT STA Administration Protocol Medical Decision Making Medical Decision Making [facility] Narrative: 84-year-old female with past medical history of diastolic CHF on 40 mg of Lasix b.i.d., atrial fibrillation anticoagulated on Eliquis, CAD s/p CABG, hypertension, hiatal hernia with Roger's esophagus who presents to the ER with an 8 lb weight gain over the last 2 weeks with cough and shortness of breath over the last few days. Patient also complaining of generalized fatigue and not feeling well. She denies any chest pain, productive cough. She does report some leg swelling. She has been compliant with her medications. There is no reports of fevers, chills. Patient has some mild lower extremity swelling with some fine crackles in the bases. Sounds like she has decompensated congestive heart failure. Will obtain labs, chest x-ray, EKG, viral testing Will place an IV and give 40 mg of IV Lasix Anticipate admission Differential Diagnosis Differential Diagnoses: The differential diagnosis associated with the presentation includes Congestive heart failure Admission/Observation Consideration of admission/observation: Escalation of care including admission/observation considered Decompensated heart failure requiring IV diuretic Consult Healthcare Provider Management of the patient was discussed with: Hospitalist Amara Wright [phone]-accepted Lab Data [facility] Lab Attestation statement: I reviewed the patient's lab results. 08/19/25 14:30 08/19/25 14:30 Labs: Lab Results 08/19/25 Range/Units 14:30 WBC 7.6 (4.8-10.8) X10*3/uL RBC 3.69 L (4.20-5.50) X10*6/uL Hgb 11.6 L (12.0-16.0) g/dl Hct 33.3 L (37.0-47.0) % MCV 90.2 (80.0-98.0) fL MCH 31.4 (27.0-33.0) pg MCHC 34.8 (31.0-35.0) g/dl RDW 14.6 (11.0-16.0) % Plt Count 205 (160-400) X10*3/uL MPV 9.9 (9.4-12.3) fL Immature Gran % (Auto) 0.3 (0.0-0.4) % Neut % (Auto) 69.7 (45-73) % Lymph % (Auto) 16.9 L (20-40) % [place] % (Auto) 8.5 (2-11) % Eos % (Auto) 4.1 H (0-4) % Baso % (Auto) 0.5 (0-2) % Lymph # (Auto) 1.3 (1.2-4.9) X10*3/uL [place] # (Auto) 0.7 (0.1-1.2) X10*3/uL Eos # (Auto) 0.3 (0.0-0.4) X10*3/uL Baso # (Auto) 0.0 (0.0-0.2) X10*3/uL Abs Immat Gran (auto) 0.02 (0.00-0.03) X10*3/uL Absolute Neuts (auto) 5.3 (2.0-8.3) x10*3/uL Absolute Nucleated RBC 0.000 (0.0-0.012) X10*3/uL Nucleated RBC % (auto) 0.0 (0.0-0.2) /100WBC Sodium 139 (135-145) mmol/L Potassium 4.3 (3.3-5.1) mmol/L Chloride 103 (96-108) mmol/L Carbon Dioxide 29 (22-29) mmol/L Anion Gap 11 L (12-20) BUN 28 H (9-16) mg/dL Creatinine 1.43 H (0.5-1.4) mg/dL Estim Creat Clear Calc 27.8 Estimated GFR 35 Random Glucose 101 (60-115) mg/dL Calcium 9.2 (8.4-10.2) mg/dL Magnesium 2.3 (1.6-2.6) mg/dL Total Bilirubin 0.8 (0.0-1.0) mg/dL Direct Bilirubin 0.3 (0.0-0.5) mg/dL AST 22 (5-31) U/L ALT 10 (0-31) U/L Alkaline Phosphatase 113 (39-117) U/L Troponin I High Sens 18.5 H (<3.5-17.0) ng/L NT-Pro-B Natriuret Pep 5025.2 H (<300) pg/mL Total Protein 7.2 (6.5-8.0) g/dL Albumin 3.7 (3.5-5.0) g/dL COVID-19 (WU) Negative (Negative) COVID-19 Clin Com See Note Independent Interpretation I performed an independent interpretation of an: EKG and Plain X-Ray Interpretation: I independently viewed the x-ray and agree with the radiology report I independently viewed the EKG which shows AFib with a rate of 70 Radiology Impression Discussion of test interpretation with radiology: I have reviewed the radiologist's reading. Radiologist Impression: [address] [address] XRay Report Signed Patient: Bethany Brooke MR#: [id number] : 1940 Acct:[id number] Age/Sex: 85 / F ADM Date: 08/19/25 Loc: HO.ED Attending Dr: Ordering Physician: Albania Allan Date of Service: 08/19/25 Procedure(s): XR chest 2V Accession Number(s): [id number] cc: Edwin Allen MD; Albania Allan~ Reason for Exam: SOB CLINICAL HISTORY: SOB Chest radiograph PA and lateral views Comparison: CR/SR - XR CHEST 2 VIEWS - 02/28/25 15:25 EDT Findings: Stable cardiomegaly, status post median sternotomy and left atrial appendage ligation. Large hiatal hernia with at least part of stomach in the left thorax. Left upper lobe parenchymal scar is unchanged. No consolidation, pleural effusion or pneumothorax. Uncoiling of the thoracic aorta, same as before. No acute fracture. Unremarkable chest wall soft tissue. Impression: 1. No acute pulmonary finding. 2. Stable cardiomegaly with postsurgical changes. 3. Large hiatal hernia. Independent Historian Clinical information obtained from an independent historian. History obtained from or confirmed by: Other (daughter) Critical Care Time Critical Care Time Critical Care Time: Yes Total Critical Care Time: 60 Attestation: Time includes: direct patient care, patient reassessment, coordination of patient care, interpretation of data, review of patient's medical records, medical consultation and documentation of patient care. Discharge Plan Discharge Clinical Impression: CHF (congestive heart failure) Patient Disposition: Admitted As Inpatient
[2025-08-19 14:37] LABS: Hematocrit 33.3 % (37.0-47.0); Hemoglobin 11.6 g/dl (12.0-16.0); Imm Gran Abs Auto 0.02 X10*3/uL (0.00-0.03); Imm Gran Pct Auto 0.3 % (0.0-0.4); Lymphocytes Absolute Auto 1.3 X10*3/uL (1.2-4.9); MANUAL DIFF FLAG NO; Mean Corpuscular HGB Conc 34.8 g/dl (31.0-35.0); Mean Corpuscular Hemoglobin 31.4 pg (27.0-33.0); Mean Corpuscular Volume 90.2 fL (80.0-98.0); NRBC Abs Auto 0.000 X10*3/uL (0.0-0.012); NRBC Pct Auto 0.0 /100WBC (0.0-0.2); Platelet Count 205 X10*3/uL (160-400); Red Blood Count 3.69 X10*6/uL (4.20-5.50); White Blood Count 7.6 X10*3/uL (4.8-10.8)
[2025-08-19 14:54] LABS: Alanine Aminotransferase 10 U/L (0-31); Albumin Level 3.7 g/dL (3.5-5.0); Alkaline Phosphatase 113 U/L (39-117); Anion Gap 11 (12-20); Aspartate Amino Transferase 22 U/L (5-31); Blood Urea Nitrogen 28 mg/dL (9-16); Calcium 9.2 mg/dL (8.4-10.2); Carbon Dioxide 29 mmol/L (22-29); Chloride 103 mmol/L (96-108); Creatinine Clr Calc Pharmacy 27.8; Estimated Glomerular Filt Rate 35; Magnesium 2.3 mg/dL (1.6-2.6); Potassium 4.3 mmol/L (3.3-5.1); Sodium 139 mmol/L (135-145); Total Protein 7.2 g/dL (6.5-8.0)
[2025-08-19 14:55] LABS: COVID-19 Test Negative (Negative); IDNOW Serial# 55D5AD1C
[2025-08-19 15:01] LABS: NT Pro B Type Natriuretic Pept 5025.2 pg/mL (<300)
--- OUTSIDE RECORDS SUMMARY | 2025-08-19 15:21 | XMS_ITS | Encounter Summary ---
Author Organization [facility] Address [address] [place] [address] Phone Care Team Providers Care Tooth Clerk Name Role Phone Edwin Allen MD Primary Care Provider Encounter Details Date Type Department Care Team (Late st Contact Info) Description 05/01/2017 Ancillary Orders Arcenio Wolf MD - [address] [address] Arcenio Wolf MD, RY [address] [place] [address], [address] 2 [place] [address] [email or web address] Social History Tobacco Use Types Packs/Day Years [...] on filedocumented in this encounter Care Teams Tooth Clerk Relationship Specialty Start Date End Date Edwin Allen MD [address] [place] [phone] PCP - General 05/30/14 documented as of this encounter Additional Source Comments The information contained in this document represents components of the legal health record. It is not the complete legal health record.[facility]
--- OUTSIDE RECORDS SUMMARY | 2025-08-19 15:21 | XMS_ITS | Encounter Summary ---
Author Organization [facility] Address [address] [place] [address] Phone Care Team Providers Care Director Of Campus Recreation Name Role Phone Edwin Allen MD Primary Care Provider [phone] Reason for Referral * MRI/CAT Scan - Closed Specialty Diagnoses / Procedures Referred By Sarah mane Referred To Contact Radiology Diagnoses Subclavian arterial stenosis Procedures CT Angio Upper Extremity (Left) Arcenio Wolf MD, RY Phone: tel: fax: [email or web address] Referral ID Status Reason Start Date Expiration Date Visits Re quested Visits Authorized [id number] Closed 05/01/2017 05/01/2018 1 1 Encounter Details Date Type Department Care Team (Late st Contact Info) Description 05/01/2017 Ancillary Orders Arcenio Wolf MD - [facility] [address] [place] [address] Arcenio Wolf MD, RY [address] [place] [address], [address] 2 [place] [address] [email or web address] Subclavian arterial stenosis Social History Tobacco Use [...] stenosis documented in this encounter Care Teams Director Of Campus Recreation Relationship Specialty Start Date End Date Po, Edwin Pulliam MD [address] [place] [address] Drive [address] [place] [address] PCP - General 05/30/14 documented as of this encounter Additional Source Comments The information contained in this document represents components of the legal health record. It is not the complete legal health record.[facility]
--- OUTSIDE RECORDS SUMMARY | 2025-08-19 15:21 | XMS_ITS | Encounter Summary ---
Author Organization [facility] Address [address] [place] [address] [place] [address] Phone Care Team Providers Care Carpenters Name Role Phone Edwin Allen MD Primary Care Provider Encounter Details Date Type Department Care Team (Late st Contact Info) Description 10/26/2019 Ancillary Orders Arcenio Wolf MD - [address] [address] Arcenio Wolf MD, RY [address] [place] [address], [address] 2 [place] [address] [email or web address] Atherosclerosis of [place] artery of both lower extremities with intermittent [...] this encounter Visit Diagnoses Diagnosis Atherosclerosis of [place] artery of both lower extremities with intermittent claudication documented in this encounter Care Teams Carpenters Relationship Specialty Start Date End Date Edwin Allen MD [address] [place] [address] Drive [address] [place] [phone] PCP - General 05/30/14 documented as of this encounter Additional Source Comments The information contained in this document represents components of the legal health record. It is not the complete legal health record.[facility]
--- OUTSIDE RECORDS SUMMARY | 2025-08-19 15:21 | XMS_ITS | Encounter Summary ---
Author Organization [facility] Address [address] [place] [address] [place] [address] Phone Care Team Providers Care Commercial Underwriter Name Role Phone Edwin Allen MD Primary Care Provider [phone] Encounter Details Date Type Department Care Team (Late st Contact Info) Description 08/12/2018 Ancillary Orders Arcenio Wolf MD - [facility] [address] [address] Arcenio Wolf MD, RY [address] [place] [address], [address] 2 [place] [address] [email or web address] Atherosclerosis of [place] artery of both lower extremities with intermittent [...] this encounter Visit Diagnoses Diagnosis Atherosclerosis of [place] artery of both lower extremities with intermittent claudication PAD (peripheral artery disease) Unspecified peripheral vascular disease documented in this encounter Care Teams Commercial Underwriter Relationship Specialty Start Date End Date Edwin Allen MD [address] [place] [address] [place] [phone] PCP - General 05/30/14 documented as of this encounter Additional Source Comments The information contained in this document represents components of the legal health record. It is not the complete legal health record.[facility]
--- OUTSIDE RECORDS SUMMARY | 2025-08-19 15:21 | XMS_ITS | Encounter Summary ---
Author Organization [facility] Address [address] [place] [address] Care Team Providers Care Rn Care Manager Name Role Phone Edwin Allen MD Primary Care Provider [phone] Encounter Details Date Type Department Care Team (Late st Contact Info) Description 03/31/2025 Lab Requisition [facility] - Main Lab [address] [facility] [place] [address] Peg Yañez MD [address] [place], [place] [id number] Heart failure, unspecified (CMS/HCC V24, CMS/HCC V28) [...] unspecified documented in this encounter Care Teams Rn Care Manager Relationship Specialty Start Date End Date Edwin Allen MD [address] [place] [address] [address] [facility] [place] [address] PCP - General Internal Medicine 10/26/18 documented as of this encounter
--- OUTSIDE RECORDS SUMMARY | 2025-08-19 15:21 | XMS_ITS ---
Author Organization [facility] Care Team Providers Care Semiconductor Package Symbol Stamper Name Role Phone Cindy Thomas Unavailable Unavailable Gloria Figueroa Unavailable Unavailable Peg Yañez Unavailable Unavailable Roslyn Saenz Unavailable Unavailable Shakir Morgan Unavailable Unavailable Briana Valerio Unavailable Unavailable Allergies and adverse reactions Code CodeSystem Substance Reaction Severity StartDate Concern Status 72523 RXNORM Simvastatin Unknown 11/26/2022 active Latex Unknown 11/26/2022 active Care Team Name Role Address Phone Organization Dates Peg Yañez PCP [address], [place], [address], [place] (Office): [facility] 11/27/2022 - 12/09/2022 Cindy Thomas [address] [place], [address], [place] (Office): [facility] 11/27/2022 - 12/09/2022 Gloria Figueroa [address], [place], [address], [place] (Office): [facility] 11/27/2022 - 12/09/2022 Roslyn Saenz [address], [place], [address], [facility] (Office): [facility] 11/27/2022 - 12/09/2022 Shakir Morgan [address] [place], [address], [facility] (Office): [facility] 11/27/2022 - 12/09/2022 Briana Teodoro [address] [place] [address], [place], [address], [facility] (Office): [facility] 11/27/2022 - 12/09/2022 Immunizations Immunization Status Vaccine [...] preservative free, 50 mcg/0.5 mL dose Mfg: Silvia Step 2 of Multi-step with next [...] 1 ACUTE RESPIRATORY FAILURE WITH HYPOXIA [address] active 2 BOYD'S ESOPHAGUS WITH DYSPLASIA, UNSPECIFIED [address] active 3 CHRONIC KIDNEY DISEASE, STAGE 3 UNSPECIFIED [address] active 4 DIAPHRAGMATIC HERNIA WITHOUT OBSTRUCTION OR GANGRENE [address] active 5 DIFFICULTY IN WALKING, NOT ELSEWHERE CLASSIFIED [address] active 6 ESSENTIAL (PRIMARY) HYPERTENSION [address] active 7 HEART FAILURE, UNSPECIFIED [address] active 8 HYPERLIPIDEMIA, UNSPECIFIED [address] active 9 [address]KALEMIA [address] active 10 MUSCLE WEAKNESS (GENERALIZED) [address] active 11 OTHER ILL-DEFINED HEART DISEASES [address] active 12 PAROXYSMAL ATRIAL FIBRILLATION [address] active 13 PERIPHERAL VASCULAR DISEASE, UNSPECIFIED [address] active 14 UNSPECIFIED DIASTOLIC (CONGESTIVE) HEART FAILURE [address] active 15 UNSTEADINESS ON FEET [address] active Reason for Referral No Reasons for Referral Entered Social History Social History Observation Description Start Date End Date Code Code System Current Smoking Status Tobacco smoking consumption unknown 586940869 SNOMED CT Sex Assigned At Female 1940 30116-8 LOINC Gender Identity Sexual Orientation Vital Signs Code Code System Vitals Name Values and Units Timing Information 17470-9 LOINC Pain Level Value=0.0 12/09/2022 9279-[address] [facility] Respiratory Rate Value=18.0 Units=/m in 12/09/2022 71084-[address] [facility] O2 % BldC Oximetry Value=94.0 Units= % 12/09/2022 8310-[address] [facility] Body Temperature Value=97.3 Units= F 12/09/2022 8462-[address] [facility] Blood Pressure-Diastolic Value=55 Un its=mmHg 12/09/2022 8480-[address] [facility] Blood Pressure-Systolic Yjovq=798 Un its=mmHg 12/09/2022 8867-[address] [facility] Heart rate Value=88.0 Units=/min 08/2023 93580-[address] [facility] Weight Ghylz=612.6 Units=Lbs 08/2023 8302-[address] [facility] Height Value=64.0 Units=Inches 11/27/2022
--- OUTSIDE RECORDS SUMMARY | 2025-08-19 15:21 | XMS_ITS | Encounter Summary ---
Author Organization [facility] Address [address] [place] [address] Phone Care Team Providers Care Game Bird Farmer Name Role Phone Edwin Allen MD Primary Care Provider [phone] Encounter Details Date Type Department Care Team (Late st Contact Info) Description 05/01/2017 Ancillary Orders Arcenio Wolf MD - [address] [address] Arcenio Wolf MD, RY [address] [place] [address], Floor [address] [place] [address] Social History Tobacco Use Types Packs/Day Years [...] on filedocumented in this encounter Care Teams Game Bird Farmer Relationship Specialty Start Date End Date Edwin Allen MD [address] [place] [address] PCP - General 05/30/14 documented as of this encounter Additional Source Comments The information contained in this document represents components of the legal health record. It is not the complete legal health record.[facility]
--- OUTSIDE RECORDS SUMMARY | 2025-08-19 15:21 | XMS_ITS | Clinical Summary ---
Author Organization [facility] Address [address] [place] [address] Phone Care Team Providers Care Rn Pool Name Role Phone Po, Edwin Pulliam MD Primary Care Provider [phone] Allergies No known active allergies Medications MAGNESIUM [...] 06/30/2018 06/30/2017, 06/01, 06/28/2017, Additional history exists INFLUENZA VACCINE (#1) 2025 0, 09/07/2018, 11/11/2017, Additional history exists COVID-19 VACCINE ( - season) 2025 03/12/2021 PNEUMOCOCCAL VACCINES (50+ years) Completed 12/23/2019, [...] this topic Medical Devices Implanted Type Area Glass Installer Technician Device Identifier Shelf Expiration Date Model / Serial / Lot Stent Stent Description:stents to right and left leg Graft Vascular [id number] Advanta Vxt Ptfe Standard Wall Ea - [id number] Implanted:Qty: 1 on 06/29/2017 by Arcenio Wolf MD, RY at [facility] Left: Carotid [employer] [facility] 12/12/2018 [id number] / [id number] / Procedures Procedure Name Priority Date/Time Associated Diagnosis Comments BASIC METABOLIC PANEL Routine 06/30/2017 8:49 AM EDT from Last 3 Months or Most Recently Relevant to Health Maintenance Results * (ABNORMAL) Basic metabolic panel (06/30/2017 8:49 AM EDT) SODIUM 140 135 - 145 mmol/L [facility] POTASSIUM 4.4 3.4 - 5.0 mmol/L [facility] CHLORIDE 103 98 - 108 mmol/L [facility] CO2 26 23 - 32 mmol/L [facility] BUN 21 8 - 25 mg/dL [facility] CREATININE 1.44 0.60 - 1.50 mg/dL [facility] GLUCOSE 106 70 - 110 mg/dL [facility] CALCIUM 9.1 8.5 - 10.5 mg/dL [facility] EGFR 35(A) >60 mL/min/1.7 3m2 [facility] Comment:Abnormal result. The normal range for eGFR is >60 mL/min/1.73m2. If this patient is -Latvian, please multiply the reported result by 1.21 ANION GAP 11 3 - 17 mmol/L [facility] Blood 06/30/2017 8:49 AM EDT 06/30/2017 9:31 AM EDT us Arcenio Wolf MD, RY LAB BLOOD ORDERABLE S Final Result [facility] [address] [place] [address] from Last 3 Months or Most Recently [...] Advance Directives For more information, please contact: [phone] (9AM - 5PM [facility], Thursday-Thursday) Documents on File Type Date Recorded Patient Clinical Research Associate Expl anation Healthcare Proxy 07/03/2017 1:09 PM * Full Code (Presumed) (Latest Code Status on File) Date Activated Date Inactivated Comments 06/29/2017 10:47 PM 07/01/2017 3:59 PM * Full Code (Presumed) Date Activated Date Inactivated Comments 06/28/2017 1:47 PM 06/29/2017 10:47 PM Care Teams Rn Pool Relationship Specialty Start Date End Date Edwin Allen MD [address] [place] [address] PCP - General 05/30/14 Additional Source Comments The information contained in this document represents components of the legal health record. It is not the complete legal health record.[facility]
--- OUTSIDE RECORDS SUMMARY | 2025-08-19 15:22 | XMS_ITS | Encounter Summary ---
Author Organization [facility] Address [address] [place] [address] Care Team Providers Care Woodyard Crane Operator Name Role Phone Edwin Allen MD Primary Care Provider [phone] Encounter Details Date Type Department Care Team (Late st Contact Info) Description 03/13/2025 Lab Requisition [facility] - Main Lab [address] [facility] [place] [address] Peg Yañez MD [address] [place] [address] Heart failure, unspecified (CMS/HCC V24, [...] AM EDT Heart failure, unspecified (CMS/HCC V24, [facility] V28) COMPREHENSIVE METABOLIC PANEL Routine 03/13/2025 5:29 AM EDT Heart failure, unspecified ([facility]/HCC V24, CMS/HCC V28) documented in this encounter Results * (ABNORMAL) Folate (03/13/2025 5:29 AM EDT) [facility] Folate >20.0(H) 2.8 - 17.0 ng/ml LAB CHEMISTRY METHOD 03/13/2025 3:05 PM EDT [facility] Blood Venous blood specimen / Unknown Venipuncture / Unknown 03/13/2025 5:29 AM EDT 03/13/2025 11:41 AM EDT us Peg Yañez MD LAB BLOOD ORDERABLES Final Resul t Performing Organization Address City/[facility]/ZIP Co de Phone Number [facility] [address] [place] [address], [place] [phone] * Vitamin B12 (03/13/2025 5:29 AM EDT) [facility] Vitamin B-12 813 250 - 900 pcg/mL LAB CHEMISTRY METHOD 03/13/2025 3:05 PM EDT [facility] Blood Venous blood specimen / Unknown Venipuncture / Unknown 03/13/2025 5:29 AM EDT 03/13/2025 11:41 AM EDT us Peg Yañez MD LAB BLOOD ORDERABLES Final Resul t Performing Organization Address City/[facility]/ZIP Co de Phone Number [facility] [address] [place] [address], [place] [phone] * (ABNORMAL) Thyroid stimulating hormone (03/13/2025 5:29 AM EDT) [facility] TSH 0.11(L) 0.40 - 4.00 mcIU/mL LAB CHEMISTRY METHOD 03/13/2025 3:59 PM [facility] Blood Venous blood specimen / Unknown Venipuncture / Unknown 03/13/2025 5:29 AM EDT 03/13/2025 11:41 AM EDT us Peg Yañez MD LAB BLOOD ORDERABLES Final Resul t [facility] [address] [place] [address], [place] [phone] * (ABNORMAL) Comprehensive metabolic panel (03/13/2025 5:29 AM EDT) Sodium 137 133 - 145 mmol/L LAB CHEMISTRY METHOD 03/13/2025 3:05 PM [facility] Potassium 3.5 3.5 - 5.5 mmol/L LAB CHEMISTRY METHOD 03/13/2025 3:05 PM [facility] Chloride 100 96 - 110 mmol/L LAB CHEMISTRY METHOD 03/13/2025 3:05 PM [facility] CO2 28 21 - 32 mmol/L LAB CHEMISTRY METHOD 03/13/2025 3:05 PM [facility] Anion Gap 9 3 - 11 LAB CHEMISTRY METHOD 03/13/2025 3:05 PM [facility] Glucose 69(L) 70 - 100 mg/dL LAB CHEMISTRY METHOD 03/13/2025 3:05 PM [facility] BUN 33(H) 5 - 25 mg/dL LAB CHEMISTRY METHOD 03/13/2025 3:05 PM [facility] Creatinine 1.40(H) 0.50 - 1.10 mg/dL LAB CHEMISTRY METHOD 03/13/2025 3:05 PM [facility] eGFR 37(L) >=60 mL/min/1. 73m2 LAB CHEMISTRY METHOD 03/13/2025 3:05 PM [facility] Comment:Calculation based on the Chronic Kidney Disease Epidemiology Collaboration (CKD-EPI) equation refit without adjustment for race. BUN/Creatinine Ratio 23.6 LAB CHEMISTRY METHOD 03/13/2025 3:05 PM [facility] Calcium 8.7 8.5 - 10.5 mg/dL LAB CHEMISTRY METHOD 03/13/2025 3:05 PM [facility] AST (SGOT) 20 10 - 42 unit/L LAB CHEMISTRY METHOD 03/13/2025 3:05 PM [facility] ALT (SGPT) 16 10 - 60 unit/L LAB CHEMISTRY METHOD 03/13/2025 3:05 PM [facility] Alkaline Phosphatase 99 42 - 121 unit/L LAB CHEMISTRY METHOD 03/13/2025 3:05 PM [facility] Total Protein 6.7 6.0 - 8.0 g/dL LAB CHEMISTRY METHOD 03/13/2025 3:05 PM [facility] Albumin 2.6(L) 3.2 - 5.0 g/dL LAB CHEMISTRY METHOD 03/13/2025 3:05 PM [facility] Total Bilirubin 0.9 0.0 - 1.4 mg/dL LAB CHEMISTRY METHOD 03/13/2025 3:05 PM [facility] Blood Venous blood specimen / Unknown Venipuncture / Unknown 03/13/2025 5:29 AM EDT 03/13/2025 11:41 AM EDT us Peg Yañez MD LAB BLOOD ORDERABLES Final Resul t [facility] [address] [place] [address], * (ABNORMAL) Complete blood count (03/13/2025 5:29 AM EDT) Pathologist [facility] WBC 7.4 4.8 - 10.8 K/mcL LAB HEMETOLOGY METHOD 03/13/2025 12:46 PM [facility] RBC 3.80 3.80 - 4.80 M/mcL LAB HEMETOLOGY METHOD 03/13/2025 12:46 PM [facility] Hemoglobin 11.6 11.5 - 16.0 g/dL LAB HEMETOLOGY METHOD 03/13/2025 12:46 PM [facility] Hematocrit 35.0 35.0 - 47.0 % LAB HEMETOLOGY METHOD 03/13/2025 12:46 PM [facility] MCV 92.1 79.0 - 98.0 FL LAB HEMETOLOGY METHOD 03/13/2025 12:46 PM [facility] MCH 30.5 27.0 - 32.0 pcg LAB HEMETOLOGY METHOD 03/13/2025 12:46 PM [facility] MCHC 33.1 32.0 - 37.0 g/dL LAB HEMETOLOGY METHOD 03/13/2025 12:46 PM [facility] RDW 13.8 11.0 - 15.0 % LAB HEMETOLOGY METHOD 03/13/2025 12:46 PM [facility] Platelets 262 130 - 400 K/[facility] LAB HEMETOLOGY METHOD 03/13/2025 12:46 PM [facility] MPV 11.1(H) 7.0 - 11.0 FL LAB HEMETOLOGY METHOD 03/13/2025 12:46 PM [facility] NRBC 0.0 <1.0 % LAB HEMETOLOGY METHOD 03/13/2025 12:46 PM [facility] NRBC Absolute 0.00 <0.10 K/[facility] LAB HEMETOLOGY METHOD 03/13/2025 12:46 PM [facility] Blood Venous blood specimen / Unknown Venipuncture / Unknown 03/13/2025 5:29 AM EDT 03/13/2025 11:41 AM EDT Peg Yañez MD LAB BLOOD ORDERABLES Final Resul t [facility] [address] [place] [address], documented in this encounter Visit Diagnoses Diagnosis Heart failure, unspecified (CMS/HCC V24, CMS/HCC V28) Heart failure, unspecified documented in this encounter Care Teams Woodyard Crane Operator Relationship Specialty Start Date End Date Edwin Allen MD [address] [place] [address] [address] [facility] [place] [address] PCP - General Internal Medicine 10/26/18 documented as of this encounter
--- OUTSIDE RECORDS SUMMARY | 2025-08-19 15:22 | XMS_ITS | Patient Health Record ---
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
--- OUTSIDE RECORDS SUMMARY | 2025-08-19 15:22 | XMS_ITS | Encounter Summary ---
Author Organization [facility] Address [address] [place] [address] Care Team Providers Care Network Services Project Manager Name Role Phone Edwin Allen MD Primary Care Provider [phone] Encounter Details Date Type Department Care Team (Late st Contact Info) Description 03/24/2025 Lab Requisition [facility] - Main Lab [address] [facility] [place] [address] Peg Yañez MD [address] [place] [address] Heart failure, unspecified (CMS/HCC V24, [...] LAB CHEMISTRY METHOD 03/27/2025 1:58 PM T [facility] Potassium 4.1 3.5 - 5.5 mmol/L LAB CHEMISTRY METHOD 03/27/2025 1:58 PM T [facility] Chloride 104 96 - 110 mmol/L LAB CHEMISTRY METHOD 03/27/2025 1:58 PM [facility] CO2 25 21 - 32 mmol/L LAB CHEMISTRY METHOD 03/27/2025 1:58 PM [facility] Anion Gap 8 3 - 11 LAB CHEMISTRY METHOD 03/27/2025 1:58 PM [facility] Glucose 76 70 - 100 mg/dL LAB CHEMISTRY METHOD 03/27/2025 1:58 PM [facility] BUN 17 5 - 25 mg/dL LAB CHEMISTRY METHOD 03/27/2025 1:58 PM [facility] Creatinine 1.16(H) 0.50 - 1.10 mg/dL LAB CHEMISTRY METHOD 03/27/2025 1:58 PM [facility] eGFR 47(L) >=60 mL/min/1. 73m2 LAB CHEMISTRY METHOD 03/27/2025 1:58 PM [facility] Comment:Calculation based on the Chronic Kidney Disease Epidemiology Collaboration (CKD-EPI) equation refit without adjustment for race. BUN/Creatinine Ratio 14.7 LAB CHEMISTRY METHOD 03/27/2025 1:58 PM [facility] Calcium 8.4(L) 8.5 - 10.5 mg/dL LAB CHEMISTRY METHOD 03/27/2025 1:58 PM [facility] Blood Venous blood specimen / Unknown Venipuncture / Unknown 03/27/2025 5:06 AM EDT 03/27/2025 10:13 AM EDT us Peg Yañez MD LAB BLOOD ORDERABLES Final Resul t [facility] [address] [place] [address], * (ABNORMAL) Complete blood count (03/27/2025 5:06 AM EDT) [facility] Signature WBC 6.7 4.8 - 10.8 K/mcL LAB HEMETOLOGY METHOD 03/27/2025 11:09 AM [facility] RBC 3.60(L) 3.80 - 4.80 M/mcL LAB HEMETOLOGY METHOD 03/27/2025 11:09 AM [facility] Hemoglobin 11.0(L) 11.5 - 16.0 g/dL LAB HEMETOLOGY METHOD 03/27/2025 11:09 AM [facility] Hematocrit 33.3(L) 35.0 - 47.0 % LAB HEMETOLOGY METHOD 03/27/2025 11:09 AM [facility] MCV 92.5 79.0 - 98.0 FL LAB HEMETOLOGY METHOD 03/27/2025 11:09 AM [facility] MCH 30.6 27.0 - 32.0 pcg LAB HEMETOLOGY METHOD 03/27/2025 11:09 AM [facility] MCHC 33.0 32.0 - 37.0 g/dL LAB HEMETOLOGY METHOD 03/27/2025 11:09 AM [facility] RDW 14.0 11.0 - 15.0 % LAB HEMETOLOGY METHOD 03/27/2025 11:09 AM [facility] Platelets 203 130 - 400 K/mcL LAB HEMETOLOGY METHOD 03/27/2025 11:09 AM [facility] MPV 10.8 7.0 - 11.0 FL LAB HEMETOLOGY METHOD 03/27/2025 11:09 AM [facility] NRBC 0.0 <1.0 % LAB HEMETOLOGY METHOD 03/27/2025 11:09 AM EDT [facility] NRBC Absolute 0.00 <0.10 K/mcL LAB HEMETOLOGY METHOD 03/27/2025 11:09 AM EDT [facility] Blood Venous blood specimen / Unknown Venipuncture / Unknown 03/27/2025 5:06 AM EDT 03/27/2025 10:13 AM EDT us Peg Yañez MD LAB BLOOD ORDERABLES Final Resul t [facility] [address] [place] [address], documented in this encounter Visit Diagnoses Diagnosis Heart failure, unspecified (CMS/HCC V24, CMS/HCC V28) Heart failure, unspecified documented in this encounter Care Teams Network Services Project Manager Relationship Specialty Start Date End Date Edwin Allen MD [address] [place] [address] [address] [facility] [place] [address] PCP - General Internal Medicine 10/26/18 documented as of this encounter
--- OUTSIDE RECORDS SUMMARY | 2025-08-19 15:22 | XMS_ITS | Encounter Summary ---
Author Organization [facility] Address [address] [place] [address] Phone Care Team Providers Care Paperboard Boxes Estimator Name Role Phone Edwni Allen MD Primary Care Provider [phone] Encounter Details Date Type Department Care Team (Late st Contact Info) Description 06/30/2017 Documentation [facility] Vascular Surgery - [place] [address] [place] [address], 4th Floor, [address] [place] [address] Arcenio Wolf MD, RY [address] [place] [address], [address] [place] [address] [email or web address] Social History Tobacco Use Types Packs/Day Years [...] on filedocumented in this encounter Care Teams Paperboard Boxes Estimator Relationship Specialty Start Date End Date Edwin Allen MD [address] [place] [address] PCP - General 05/30/14 documented as of this encounter Additional Source Comments The information contained in this document represents components of the legal health record. It is not the complete legal health record.[facility]
--- OUTSIDE RECORDS SUMMARY | 2025-08-19 15:22 | XMS_ITS | Encounter Summary ---
Author Organization [facility] Address [address] [place] [address] Care Team Providers Care Certified Alcohol Drug Counselor Name Role Phone Edwin Allen MD Primary Care Provider [phone] Encounter Details Date Type Department Care Team (Late st Contact Info) Description 03/22/2025 Lab Requisition [facility] - Main Lab [address] [facility] [place] [address] Peg Yañez MD [address] [place], [place] [id number] Hypotension, unspecified Social History Tobacco Use Types [...] mmol/L LAB CHEMISTRY METHOD 03/22/2025 10:55 AM [facility] Chloride 102 96 - 110 mmol/L LAB CHEMISTRY METHOD 03/22/2025 10:55 AM [facility] CO2 28 21 - 32 mmol/L LAB CHEMISTRY METHOD 03/22/2025 10:55 AM [facility] Anion Gap 7 3 - 11 LAB CHEMISTRY METHOD 03/22/2025 10:55 AM [facility] Glucose 73 70 - 100 mg/dL LAB CHEMISTRY METHOD 03/22/2025 10:55 AM [facility] BUN 42(H) 5 - 25 mg/dL LAB CHEMISTRY METHOD 03/22/2025 10:55 AM [facility] Creatinine 1.53(H) 0.50 - 1.10 mg/dL LAB CHEMISTRY METHOD 03/22/2025 10:55 AM [facility] eGFR 34(L) >=60 mL/min/1. 73m2 LAB CHEMISTRY METHOD 03/22/2025 10:55 AM [facility] LAB Comment:Calculation based on the Chronic Kidney Disease Epidemiology Collaboration (CKD-EPI) equation refit without adjustment for race. BUN/Creatinine Ratio 27.5 LAB CHEMISTRY METHOD 03/22/2025 10:55 AM [facility] Calcium 8.5 8.5 - 10.5 mg/dL LAB CHEMISTRY METHOD 03/22/2025 10:55 AM [facility] Blood Venous blood specimen / Unknown Venipuncture / Unknown 03/22/2025 6:08 AM EDT 03/22/2025 9:27 AM EDT us Peg Yañez MD LAB BLOOD ORDERABLES Final Resul t [facility] [address] [place] [address], * (ABNORMAL) Complete blood count (03/22/2025 6:08 AM EDT) [facility] WBC 7.2 4.8 - 10.8 K/mcL LAB HEMETOLOGY METHOD 03/22/2025 11:00 AM [facility] RBC 3.70(L) 3.80 - 4.80 M/mcL LAB HEMETOLOGY METHOD 03/22/2025 11:00 AM [facility] Hemoglobin 11.4(L) 11.5 - 16.0 g/dL LAB HEMETOLOGY METHOD 03/22/2025 11:00 AM [facility] Hematocrit 34.3(L) 35.0 - 47.0 % LAB HEMETOLOGY METHOD 03/22/2025 11:00 AM [facility] MCV 92.5 79.0 - 98.0 FL LAB HEMETOLOGY METHOD 03/22/2025 11:00 AM [facility] MCH 30.7 27.0 - 32.0 pcg LAB HEMETOLOGY METHOD 03/22/2025 11:00 AM [facility] LAB MCHC 33.2 32.0 - 37.0 g/dL LAB HEMETOLOGY METHOD 03/22/2025 11:00 AM [facility] RDW 14.0 11.0 - 15.0 % LAB HEMETOLOGY METHOD 03/22/2025 11:00 AM [facility] Platelets 252 130 - 400 K/mcL LAB HEMETOLOGY METHOD 03/22/2025 11:00 AM [facility] MPV 10.8 7.0 - 11.0 FL LAB HEMETOLOGY METHOD 03/22/2025 11:00 AM [facility] NRBC 0.0 <1.0 % LAB HEMETOLOGY METHOD 03/22/2025 11:00 AM [facility] NRBC Absolute 0.00 <0.10 K/mcL LAB HEMETOLOGY METHOD 03/22/2025 11:00 AM EDT [facility] Blood Venous blood specimen / Unknown Venipuncture / Unknown 03/22/2025 6:08 AM EDT 03/22/2025 9:27 AM EDT us Peg Yañez MD LAB BLOOD ORDERABLES Final Resul t [facility] [address] [place] [address], documented in this encounter Visit Diagnoses Diagnosis Hypotension, unspecified documented in this encounter Care Teams Certified Alcohol Drug Counselor Relationship Specialty Start Date End Date Edwin Allen MD [address] [place] [address] [address] [facility] [place] [address] PCP - General Internal Medicine 10/26/18 documented as of this encounter
--- OUTSIDE RECORDS SUMMARY | 2025-08-19 15:22 | XMS_ITS | Encounter Summary ---
Author Organization [facility] Address [address] [place] [address] Care Team Providers Care Furnace Maintenance Name Role Phone Edwin Allen MD Primary Care Provider [phone] Encounter Details Date Type Department Care Team (Late st Contact Info) Description 03/23/2025 Lab Requisition [facility] - Main Lab [address] [facility] [place] [address] Cindy Thomas PA [address] [place] [address] [facility] [place] [address] Urinary tract infection, site not specified Social [...] reflex microscopic (03/23/2025 12:00 AM EDT) Specific Strong Urine 1.014 1.003 - 1.030 LAB URINALYSIS - AUTOMATED METHOD 03/23/2025 11:[address] [facility] pH, Urine 6.5 5.0 - 8.0 pH LAB URINALYSIS - AUTOMATED METHOD 03/23/2025 11:[address] [facility] Leukocytes, Urine Large(A) Negative LAB URINALYSIS - AUTOMATED METHOD 03/23/2025 11:[address] [facility] Nitrite, Urine Positive(A) Negative LAB URINALYSIS - AUTOMATED METHOD 03/23/2025 11:[address] [facility] Protein, Urine Negative <=Trace mg/dL LAB URINALYSIS - AUTOMATED METHOD 03/23/2025 11:[address] [facility] Glucose, Urine Negative Negative mg/dL LAB URINALYSIS - AUTOMATED METHOD 03/23/2025 11:[address] [facility] Ketones, Urine Negative Negative mg/dL LAB URINALYSIS - AUTOMATED METHOD 03/23/2025 11:[address] [facility] Urobilinogen , Urine 1.0 0.2 - 1.0 mg/dL LAB URINALYSIS - AUTOMATED METHOD 03/23/2025 11:[address] [facility] Bilirubin, Urine Negative Negative LAB URINALYSIS - AUTOMATED METHOD 03/23/2025 11:[address] [facility] Blood, Urine Trace(A) Negative LAB URINALYSIS - AUTOMATED METHOD 03/23/2025 11:[address] [facility] RBC, Urine 2.8 0 - 4 /HPF LAB URINALYSIS - AUTOMATED METHOD 03/23/2025 11:[address] [facility] WBC, Urine 51.0(H) 0 - 4 /HPF LAB URINALYSIS - AUTOMATED METHOD 03/23/2025 11:[address] [facility] Squamous Epithelial, Urine 4 0 - 60 /LPF LAB URINALYSIS - AUTOMATED METHOD 03/23/2025 11:03 AM EDT [facility] Bacteria, Urine Many(A) Negative /HPF LAB URINALYSIS - AUTOMATED METHOD 03/23/2025 11:03 AM EDT [facility] Hyaline Casts, Urine 2.4 0 - 3 /LPF LAB URINALYSIS - AUTOMATED METHOD 03/23/2025 11:03 AM EDT [facility] Urine Urine specimen obtained by clean catch procedure / Unknown Non-blood Collection / Unknown 03/23/2025 03/23/2025 10:35 AM EDT us Cindy ROWE LAB URINE ORDERABLES Final Resu lt [facility] [address] [place] [address], [place] [phone] * (ABNORMAL) Culture urine (03/23/2025 12:00 AM EDT) Culture, Urine >100,000 CFU/mL Escherichia coli(A) NENA 03/25/2025 11:32 AM EDT [facility] Urine Urine specimen obtained by [...] MICROBIOLOGY - GENERAL ALYCIA TOBIAS Final Result [facility] [address] [place] [address], documented in this encounter Visit Diagnoses Diagnosis Urinary tract infection, site not specified documented in this encounter Care Teams Furnace Maintenance Relationship Specialty Start Date End Date Edwin Allen MD [address] [place] [address] [facility] [place] [address] PCP - General Internal Medicine 10/26/18 documented as of this encounter
--- OUTSIDE RECORDS SUMMARY | 2025-08-19 15:22 | XMS_ITS ---
Author Organization [facility] Care Team Providers Care Recording Clerk Name Role Phone Heber Brown Unavailable Unavailable Ramona Mccartney Unavailable Unavailable Princess Urban Unavailable Unavailable Allergies and adverse reactions No Known Allergies Care Team Name Role Address Phone Organization Dates Heber Brown PCP [address] [facility] [address], [place], [address], [place] (Office[place] : [facility] 12/09/2022 - 12/22/2022 Ramona Mccartney [address] [address], [place], [address], [place]Office[place] : [facility] 12/09/2022 - 12/22/2022 Princess Urban [address] [facility] [address], [place], [address], [place] (Office): [facility] 12/09/2022 - 12/22/2022 Goals Section Goals Description Status Target Date I will be [...] Active 12/29/2022 I will be discharged to [facility] location based upon physical/cognitive status. 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 12/09/[address] active 4 ESSENTIAL (PRIMARY) HYPERTENSION 12/09/[address] active 5 GASTRO-ESOPHAGEAL REFLUX DISEASE WITHOUT ESOPHAGITIS 12/09/[address] active 6 HYPERLIPIDEMIA, UNSPECIFIED 12/09/[address] active 7 MUSCLE WASTING AND ATROPHY, NOT ELSEWHERE CLASSIFIED, LEFT LOWER LEG 12/09/[address] active 8 MUSCLE WASTING AND ATROPHY, NOT ELSEWHERE CLASSIFIED, RIGHT LOWER LEG 12/09/[address] active 9 PARTIALLY VACCINATED FOR COVID-19 12/09/19 23 Z28.311 ICD-10-CM active 10 UNSPECIFIED ATRIAL FIBRILLATION 12/09/[address] active Reason for Referral No Reasons for Referral Entered Social History Social History Observation Description Start Date End Date Code Code System Current Smoking Status Tobacco smoking consumption unknown 085238053 SNOMED CT Sex Assigned At Female 1940 02766-7 [facility] Gender Identity Sexual Orientation Vital Signs Code Code System Vitals Name Values and Units Timing Information 41370-6 [facility] Pain Level Value=0.0 12/22/2022 9279-1 [facility] Respiratory Rate Value=18.0 Units=/m in 12/21/2022 8462-4 [facility] Blood Pressure-Diastolic Value=59 Un its=mmHg 12/21/2022 8480-6 [facility] Blood Pressure-Systolic Jezpc=613 Un its=mmHg 12/21/2022 8310-5 [facility] Body Temperature Value=98.1 Units= F 12/21/2022 8867-4 [facility] Heart rate Value=77.0 Units=/min 96303-7 [facility] O2 % BldC Oximetry Value=94.0 Units= % 12/21/2022 11793-4 [facility] Weight Hxkst=565.4 Units=Lbs 8302-2 [facility] Height Value=64.8 Units=Inches 12/10/2022
--- OUTSIDE RECORDS SUMMARY | 2025-08-19 15:22 | XMS_ITS | Clinical Summary ---
Author Organization [facility] Address [address] [place] [address] Phone Care Team Providers Care Ink Grinder Name Role Phone Edwin Allen MD Primary Care Provider [phone] Allergies Active Allergy Reactions Criticality Noted Date [...] this topic Insurance Medicare Medicare Care Teams Ink Grinder Relationship Specialty Start Date End Date Edwin Allen MD [address] [place] PCP - General 12/10/20
--- OUTSIDE RECORDS SUMMARY | 2025-08-19 15:22 | XMS_ITS | Encounter Summary ---
Author Organization [facility] Address [address] [place] [address] Care Team Providers Care Scrub Tech Name Role Phone Edwin Allen MD Primary Care Provider [phone] Encounter Details Date Type Department Care Team (Late st Contact Info) Description 03/18/2025 Lab Requisition [facility] - Main Lab [address] [facility] [place] [address] Peg Yañez MD [address] [place] [address] Heart failure, unspecified (CMS/HCC V24, [...] mmol/L LAB CHEMISTRY METHOD 03/20/2025 2:[address] [facility] Potassium 4.0 3.5 - 5.5 mmol/L LAB CHEMISTRY METHOD 03/20/2025 2:[address] [facility] Chloride 102 96 - 110 mmol/L LAB CHEMISTRY METHOD 03/20/2025 2:[address] [facility] CO2 28 21 - 32 mmol/L LAB CHEMISTRY METHOD 03/20/2025 2:[address] [facility] Anion Gap 9 3 - 11 LAB CHEMISTRY METHOD 03/20/2025 2:[address] [facility] Glucose 71 70 - 100 mg/dL LAB CHEMISTRY METHOD 03/20/2025 2:[address] [facility] BUN 42(H) 5 - 25 mg/dL LAB CHEMISTRY METHOD 03/20/2025 2:[address] [facility] Creatinine 1.51(H) 0.50 - 1.10 mg/dL LAB CHEMISTRY METHOD 03/20/2025 2:[address] [facility] eGFR 34(L) >=60 mL/min/1. 73m2 LAB CHEMISTRY METHOD 03/20/2025 2:[address] [facility] Comment:Calculation based on the Chronic Kidney Disease Epidemiology Collaboration (CKD-EPI) equation refit without adjustment for race. BUN/Creatinine Ratio 27.8 LAB CHEMISTRY METHOD 03/20/2025 2:[address] [facility] Calcium 9.5 8.5 - 10.5 mg/dL LAB CHEMISTRY METHOD 03/20/2025 2:[address] [facility] Blood Venous blood specimen / Unknown Venipuncture / Unknown 03/20/2025 5:06 AM EDT 03/20/2025 11:09 AM EDT us Peg Yañez MD LAB BLOOD ORDERABLES Final Resul t [facility] [address] [place] [address], * Complete blood count (03/20/2025 5:06 AM EDT) [facility] WBC 6.9 4.8 - 10.8 K/mcL LAB HEMETOLOGY METHOD 03/20/2025 11:56 AM EDT [facility] RBC 4.00 3.80 - 4.80 M/mcL LAB HEMETOLOGY METHOD 03/20/2025 11:56 AM EDT [facility] Hemoglobin 12.0 11.5 - 16.0 g/dL LAB HEMETOLOGY METHOD [facility] Hematocrit 36.3 35.0 - 47.0 % LAB HEMETOLOGY METHOD [facility]20[facility] MCV 90.5 79.0 - 98.0 FL LAB HEMETOLOGY METHOD 03/20/2025 11:56 AM EDT [facility] MCH 29.9 27.0 - 32.0 pcg LAB HEMETOLOGY METHOD 03/20/2025 11:[address] [facility] MCHC 33.1 32.0 - 37.0 g/dL LAB HEMETOLOGY METHOD 03/20[facility]25 [facility] RDW 13.9 11.0 - 15.0 % LAB HEMETOLOGY METHOD 03/20/2025 11:56 AM EDT [facility] Platelets 292 130 - 400 K/mcL LAB HEMETOLOGY METHOD 03/20/2025 11:56 AM EDT [facility] MPV 10.7 7.0 - 11.0 FL LAB HEMETOLOGY METHOD 03/20/2025 11:56 AM EDT [facility] NRBC 0.0 <1.0 % LAB HEMETOLOGY METHOD 03/20/2025 11:56 AM EDT [facility] NRBC Absolute 0.00 <0.10 K/mcL LAB HEMETOLOGY METHOD 03/20/2025 11:56 AM EDT [facility] Blood Venous blood specimen / Unknown Venipuncture / Unknown 03/20/2025 5:06 AM EDT 03/20/2025 11:09 AM EDT us Peg Yañez MD LAB BLOOD ORDERABLES Final Resul t [facility] [address] [place] [address], documented in this encounter Visit Diagnoses Diagnosis Heart failure, unspecified (CMS/HCC V24, CMS/HCC V28) Heart failure, unspecified documented in this encounter Care Teams Scrub Tech Relationship Specialty Start Date End Date Edwin Allen MD [address] [place] [address] Dr [address] [facility] [place] [address] PCP - General Internal Medicine 10/26/18 documented as of this encounter
--- OUTSIDE RECORDS SUMMARY | 2025-08-19 15:22 | XMS_ITS | Encounter Summary ---
Author Organization [facility] Address [address] [place] [address] Phone Care Team Providers Care Forklift Driver Name Role Phone Edwin Allen MD Primary Care Provider [phone] Encounter Details Date Type Department Care Team (Late st Contact Info) Description 05/01/[address], [facility] - [address], [address] [place] [address] Social History Tobacco Use Types Packs/Day Years [...] on filedocumented in this encounter Care Teams Forklift Driver Relationship Specialty Start Date End Date Edwin Allen MD [address] [place] [address] PCP - General 05/30/14 documented as of this encounter Additional Source Comments The information contained in this document represents components of the legal health record. It is not the complete legal health record.[facility]
--- OUTSIDE RECORDS SUMMARY | 2025-08-19 15:22 | XMS_ITS | Encounter Summary ---
Author Organization [facility] Address [address] [place] [address] Phone Care Team Providers Care [place] Former Machine Operator Name Role Phone Edwin Allen MD Primary Care Provider [phone] Encounter Details Date Type Department Care Team (Late st Contact Info) Description 06/29/2017 Procedure Pass [facility] PERIOPERATIVE DEPT [address] [place] [address] Social History Tobacco Use Types Packs/Day Years [...] on filedocumented in this encounter Care Teams [place] Former Machine Operator Relationship Specialty Start Date End Date Edwin Allen MD [address] [place] [address] PCP - General 05/30/14 documented as of this encounter Additional Source Comments The information contained in this document represents components of the legal health record. It is not the complete legal health record.[facility]
--- OUTSIDE RECORDS SUMMARY | 2025-08-19 15:22 | XMS_ITS | Clinical Summary ---
Author Organization [address] [place] [address] Address [address] [place] [address] Phone Care Team Providers Care Laundry Helper Name Role Phone Edwin Allen MD Primary Care Provider [phone] Allergies No known active allergies Medications CALCIUM [...] Date Diagnosed Date PAD (peripheral artery disease) ([facility] V24) Social History Tobacco Use [...] Patients (1 - 1-dose 75+ series) 2016 Cholesterol Screening (Lipid Panel) 10/19/2024 Falls Risk Assessment 10/19/2024 Medicare Annual Wellness Visit 10/19/2024 Osteoporosis Screening (Bone Density Screening) 10/19/2024 Social Influencers of Health Screening 10/19/2024 Depression Screening 11/30/2024 COVID-19 Vaccine ( season) 2025 04/09/2021, 03/12/2021 Influenza Vaccine (#1) 2025 , 09/27/2021, 12/23/2019, [...] AM EDT Heart failure, unspecified (CMS/HCC V24, [facility] V28) from Last 3 Months or Most Recently Relevant to Health Maintenance Results * (ABNORMAL) Basic metabolic panel (03/27/2025 5:06 AM EDT) Sodium 137 133 - 145 mmol/L LAB CHEMISTRY METHOD 03/27/2025 1:58 PM [facility] Potassium 4.1 3.5 - 5.5 mmol/L LAB CHEMISTRY METHOD 03/27/2025 1:58 PM [facility] Chloride 104 96 - 110 mmol/L LAB CHEMISTRY METHOD 03/27/2025 1:58 PM [facility] CO2 25 21 - 32 mmol/L LAB CHEMISTRY METHOD 03/27/2025 1:58 PM [facility] Anion Gap 8 3 - 11 LAB CHEMISTRY METHOD 03/27/2025 1:58 PM [facility] Glucose 76 70 - 100 mg/dL LAB CHEMISTRY METHOD 03/27/2025 1:58 PM [facility] BUN 17 5 - 25 mg/dL LAB CHEMISTRY METHOD 03/27/2025 1:58 PM [facility] Creatinine 1.16(H) 0.50 - 1.10 mg/dL LAB CHEMISTRY METHOD 03/27/2025 1:58 PM [facility] eGFR 47(L) >=60 mL/min/1. 73m2 LAB CHEMISTRY METHOD 03/27/2025 1:58 PM [facility] Comment:Calculation based on the Chronic Kidney Disease Epidemiology Collaboration (CKD-EPI) equation refit without adjustment for race. BUN/Creatinine Ratio 14.7 LAB CHEMISTRY METHOD 03/27/2025 1:58 PM [facility] Calcium 8.4(L) 8.5 - 10.5 mg/dL LAB CHEMISTRY METHOD 03/27/2025 1:58 PM [facility] Blood Venous blood specimen / Unknown Venipuncture / Unknown 03/27/2025 5:06 AM EDT 03/27/2025 10:13 AM EDT Peg Yañez MD LAB BLOOD ORDERABLES Final Resul t [facility] [address] [place] [address], from Last 3 Months or Most Recently Relevant to Health Maintenance Insurance [employer] [address] [facility] MEDICARE MEDICAID - [place] Advance Directives Documents on File Type Date Recorded Patient Sales Operations Specialist Expl anation Health Care Decision (hx) 03/13/2018 AD RODY DIRECTIVE Care Teams Laundry Helper Relationship Specialty Start Date End Date Edwin Allen MD [address] [place] [address] [address] [facility] [place] [address] PCP - General Internal Medicine 10/26/18
--- OUTSIDE RECORDS SUMMARY | 2025-08-19 15:22 | XMS_ITS | Encounter Summary ---
Author Organization [facility] Address [address] [place] [address] Care Team Providers Care Asian Studies Program Chair Name Role Phone Edwin Allen MD Primary Care Provider [phone] Encounter Details Date Type Department Care Team (Late st Contact Info) Description 03/23/2025 Lab Requisition [facility] - Main Lab [address] [facility] [place] [address] Peg Yañez MD [address] [place], [place] [id number] Essential (primary) hypertension Social History Tobacco Use [...] LAB CHEMISTRY METHOD 03/24/2025 8:39 AM EDT [facility] Potassium 4.1 3.5 - 5.5 mmol/L LAB CHEMISTRY METHOD 03/24/2025 8:39 AM [facility] Chloride 107 96 - 110 mmol/L LAB CHEMISTRY METHOD 03/24/2025 8:39 AM [facility] CO2 26 21 - 32 mmol/L LAB CHEMISTRY METHOD 03/24/2025 8:39 AM [facility] Anion Gap 6 3 - 11 LAB CHEMISTRY METHOD 03/24/2025 8:39 AM [facility] Glucose 80 70 - 100 mg/dL LAB CHEMISTRY METHOD 03/24/2025 8:39 AM [facility] BUN 25 5 - 25 mg/dL LAB CHEMISTRY METHOD 03/24/2025 8:39 AM [facility] Creatinine 1.37(H) 0.50 - 1.10 mg/dL LAB CHEMISTRY METHOD 03/24/2025 8:39 AM [facility] eGFR 38(L) >=60 mL/min/1. 73m2 LAB CHEMISTRY METHOD 03/24/2025 8:39 AM [facility] Comment:Calculation based on the Chronic Kidney Disease Epidemiology Collaboration (CKD-EPI) equation refit without adjustment for race. BUN/Creatinine Ratio 18.2 LAB CHEMISTRY METHOD 03/24/2025 8:39 AM [facility] Calcium 8.5 8.5 - 10.5 mg/dL LAB CHEMISTRY METHOD 03/24/2025 8:39 AM [facility] Blood Venous blood specimen / Unknown Venipuncture / Unknown 03/24/2025 4:36 AM EDT 03/24/2025 7:55 AM EDT us Peg Yañez MD LAB BLOOD ORDERABLES Final Resul t [facility] [address] [place] [address], * (ABNORMAL) Complete blood count (03/24/2025 4:36 AM EDT) [facility] WBC 6.9 4.8 - 10.8 K/mcL LAB HEMETOLOGY METHOD 03/24/2025 8:12 AM [facility] RBC 3.30(L) 3.80 - 4.80 M/mcL LAB HEMETOLOGY METHOD 03/24/2025 8:12 AM [facility] Hemoglobin 10.3(L) 11.5 - 16.0 g/dL LAB HEMETOLOGY METHOD 03/24/2025 8:12 AM [facility] Hematocrit 30.6(L) 35.0 - 47.0 % LAB HEMETOLOGY METHOD 03/24/2025 8:12 AM [facility] MCV 91.6 79.0 - 98.0 FL LAB HEMETOLOGY METHOD 03/24/2025 8:12 AM [facility] MCH 30.8 27.0 - 32.0 pcg LAB HEMETOLOGY METHOD 03/24/2025 8:12 AM [facility] MCHC 33.7 32.0 - 37.0 g/dL LAB HEMETOLOGY METHOD 03/24/2025 8:12 AM [facility] RDW 14.2 11.0 - 15.0 % LAB HEMETOLOGY METHOD 03/24/2025 8:12 AM [facility] Platelets 212 130 - 400 K/mcL LAB HEMETOLOGY METHOD 03/24/2025 8:12 AM [facility] MPV 10.6 7.0 - 11.0 FL LAB HEMETOLOGY METHOD 03/24/2025 8:12 AM [facility] NRBC 0.0 <1.0 % LAB HEMETOLOGY METHOD 03/24/2025 8:12 AM [facility] NRBC Absolute 0.00 <0.10 K/mcL LAB HEMETOLOGY METHOD 03/24/2025 8:12 AM EDT [facility] Blood Venous blood specimen / Unknown Venipuncture / Unknown 03/24/2025 4:36 AM EDT 03/24/2025 7:55 AM EDT us Peg Yañez MD LAB BLOOD ORDERABLES Final Resul t [facility] [address] [place] [address], documented in this encounter Visit Diagnoses Diagnosis Essential (primary) hypertension Unspecified essential hypertension documented in this encounter Care Teams Asian Studies Program Chair Relationship Specialty Start Date End Date Edwin Allen MD [address] [place] [address] [address] [facility] [place] [address] PCP - General Internal Medicine 10/26/18 documented as of this encounter
--- OUTSIDE RECORDS SUMMARY | 2025-08-19 15:22 | XMS_ITS | Patient Health Record ---
Author Organization [facility] Address [address] [place] [address] Care Team Providers Care Software Deployment Engineer Name Role Phone Edwin Allen Primary Care Provider Unavailabl e EdwardCarmen Unavailable [phone] Allergies Allergen (clinical drug ingredient) Drug/Non Drug [...] W/U Status Risk Notes Problem Hallux valgus (485401283) Hallux Valgus (735.0) Active confirmed Problem Hammer toe (147021348) Hammer toe (735.4) Active confirmed Problem Pain in limb (10166230) Pain in Limb (729.5) Active confirmed Plan Of Treatment Pending Test Test Name Order Date X ray : Foot, right 3V 03/09/2012 Insurance Providers Payer Name Payer Address Payer Phone Subscriber Number Group Number Insured Name Patient Relationship to Insured Coverage Start Date Coverage End Date Medicare National [employer] [address] [place] [address] [phone] [id number] Bethany Brooke Self - patient is the insured [facility] [address] [place] [address] [id number] Bethany Brooke Self - patient is the insured Medical (General) History Medical History History ICD Code anemia anxiety Cholesterol depression osteoporosis poor circulation Surgical History Surgery Date(Month/Year) eye surgery 02/2007 stints 2007, 2008
[2025-08-19 15:23] VITALS: BP 126/38; PULSE 65; RESP 15; O2SAT 96
--- NOTE | 2025-08-19 16:04 | ECG_ITS ---
Test Reason : CHF Blood Pressure : */* mmHG Vent. Rate : 70 BPM Atrial Rate : * BPM P-R Int : * ms QRS Dur : 118 ms QT Int : 446 ms P-R-T Axes : * -30 106 degrees QTcB Int : 481 ms Atrial fibrillation with a competing junctional pacemaker Left axis deviation Minimal voltage criteria for LVH, may be normal variant ( Omi product ) Anteroseptal infarct (cited on or before 17-Nov-2022) Abnormal ECG When compared with ECG of 28-Feb-2025 15:39, No significant change was found Referred By: Radha Epstein Electronically Signed By: SANAM ISAAC
--- NOTE | 2025-08-19 16:29 | PC.NURSE ---
Myself and another nurse attempted IV access, no success. Provider notified and she is going to place an US IV. Meds pending IV placement.
[2025-08-19 16:43] LABS: Troponin-I High Sensitivity 18.5 ng/L (<3.5-17.0)
[2025-08-19 16:52] VITALS: BP 137/59; PULSE 79; RESP 16; O2SAT 97
--- NOTE | 2025-08-19 17:23 | PC.NURSE ---
Provider still working on IV access.
--- NOTE | 2025-08-19 17:30 | HO.NURTONUR ---
Addendum entered by Sharon Sunshine RN 08/20/25 03:44: please see skin note/photo of wound Addendum entered by Sharon Sunshine RN 08/19/25 23:16: while changing pts sheets and purwick with EDT, noted a wound on the pts bottom that pt states is chronic. Provider Jurgen cummins, medicating pt per jan. Addendum entered by Sharon Sunshine RN 08/19/25 19:51: assumed car efor pt at this time. pt is awake and alert in stretcher, pleasantly confused. daughter is bedside. VS and plan of care updated. pt denies any pain at this time and needs are met. call betts is within pts reach plan of care ongoing. Original Note: 85 F presents to ED with 8lb weight gain over the past week, cough, SOB over the last few days, exacerbated CHF. HX:diastolic CHF on 40 mg of Lasix b.i.d., atrial fibrillation anticoagulated on Eliquis, CAD s/p CABG, hypertension, hiatal hernia with Roger's esophagus. Pt also c/o L shoulder pain, chronic, from a torn rotater cuff. Pt has some crackles in the bases of her lungs. RR even and unlabored, denies CP but sts some SOB lately. A+Ox4, ambulates with a walker/ wheelchair. Pt noted to have some BLE swelling as well. Labs: hgb 11.6/hct 33.3, anion gap 11, BUN 28, creatinine 1.43, Trop 18.5, NT-Prob-BNP 5025.2 CXR: 1. No acute pulmonary finding. 2. Stable cardiomegaly with postsurgical changes. 3. Large hiatal hernia. Admit for CHF
[2025-08-19 17:39] VITALS: BP 136/36
[2025-08-19] MEDS: Furosemide 40 MG/4 ML VIAL IVPUSH (17:39)
--- NOTE | 2025-08-19 17:46 | PM.IMHP ---
History of Present Illness Date of Service: 08/19/25 Attending physician on admission: Elmer Carver Chief Complaint: weight gain, cough This is an 85-year-old female with history of CHF, dementia was brought to the emergency department by her daughter due to cough. Patient history was primarily obtained from her daughter at the bedside. Her daughter states that she has been feeling unwell for the past several days although she the patient has been unable to verbalize what has been bothering her. Her daughter monitors her weight in his noticed a 6-8 lb weight gain over the past week. She had a cough over the past 4-5 days which started as a dry cough but has progressed to productive. She has no associated fever nasal congestion, body aches, joint pain or any recent sick contacts. In the emergency department her lab work was relatively unremarkable with the exception of an elevated proBNP which was 5025. Chest x-ray showing cardiomegaly. Patient received a dose of IV Lasix in the decision was made to admit her for further management Review of Systems Review of Systems: Yes all other systems are reviewed and are negative Constitutional: Constitutional: Denies chills and Denies fever(s) Cardiovascular: Cardiovascular: Denies dyspnea Respiratory: Respiratory: Denies dyspnea [facility] Medical History Non-rheumatic mitral regurgitation CHF exacerbation Acute exacerbation of chronic heart failure Mitral valve regurgitation PAD (peripheral artery disease) Persistent atrial fibrillation CHF (congestive heart failure) Peripheral vascular disease Essential hypertension Chronic heart failure with preserved ejection fraction Atherosclerotic cardiovascular disease Cognitive impairment Coronary artery disease of bypass graft of [place] heart with stable angina pectoris Subclavian artery stenosis, left Colitis Bilateral femoral artery stenosis Hypercholesterolemia Roger's esophagus Family History Father No problems noted. Mother No problems noted. Surgical History Status post aorto-coronary artery bypass graft History of coronary artery bypass graft (~06/2020) Social History Household Members: Children Housing: House Do you presently have visiting nurse or other home services: No Alcohol intake: never Comment: 1-2 A year Patient Tobacco Use Status: Former Tobacco user Tobacco use type: Cigarette Years Smoked: quit in 1979 Smoked in Last 30 Days: No e-Cigarette/Vaping Use: Never Used Second Hand Smoke Exposure: No Use of substances other than those prescribed or required for medical reasons: No Advance Directives: No Advance Directives Information Provided: No Do you have a plan to hurt others: No Plan service: No Current occupational status: retired Cognitive needs: Yes (cane, transport wheelchair, Walker) Hearing needs: No Vision needs: Yes (glasses) Meds Allergies Allergy/AdvReac Type Severity Reaction Status Date / Time latex Allergy Mild rash Verified 08/19/25 14:18 simvastatin (Simvastatin) Allergy Mild NAUSEA Verified 08/19/25 14:18 Active Medications: Current Medications Acetaminophen (Acetaminophen 325 Mg Tablet) 650 mg PO Q6H PRN PRN Reason: Pain, Mild 1-3,fever,headache Calcium Carbonate (Calcium Carbonate 750 Mg Tab.Chew) 750 mg PO Q4H PRN PRN Reason: Heartburn Magnesium Hydroxide (Milk Of Magnesia 30 Ml Oral.Susp) 30 ml PO DAILY PRN PRN Reason: Constipation Melatonin (Melatonin 3 Mg Tablet) 6 mg PO BEDTIME PRN PRN Reason: Insomnia Sodium Chloride (0.9 % Sodium Chloride Flush 3 Ml Syringe) [facility] Medications ?Medication ?Instructions ?Recorded ?Confirmed ?Last Taken ?Type multivitamin 1 tab PO DAILY 09/04/20 07/27/25 02/27/25 History calcium carbonate 500 mg PO DAILY 12/03/21 07/27/25 02/27/25 History cholecalciferol (vitamin D3) 25 25 mcg PO DAILY 07/12/25 07/27/25 Unknown History mcg (1,000 unit) capsule Physical Exam Vital Signs and Narrative: Vital Signs: Last Vital Signs Temp 97.8 F 08/19/25 14:16 Pulse 79 08/19/25 16:52 Resp 16 08/19/25 16:52 BP 136/36 L 08/19/25 17:39 Pulse Ox 97 08/19/25 16:52 O2 Del Method Room Air 08/19/25 16:52 BMI result Body Mass Index 25.9 Const: General: no acute distress, alert and awake Nutritional Appearance: average body habitus Orientation/consciousness: oriented to person and oriented to place Resp: Effort & Inspection: normal respiratory effort, able to speak in complete sentences, no respiratory distress and no use of accessory muscles Cardio: Rate: regular rate Rhythm: abnormal rhythm (irregular) GI: Inspection: No distended Palpation (GI): Soft to palpation and nontender Neuro: General: oriented to person, oriented to place, moves all extremities and CN's II-XI intact bilaterally Extrem: General: Yes pedal edema Results Labs 08/19/25 14:30 08/19/25 14:30 Labs: Laboratory Results - last 24 hr 08/19/25 14:30 MCV 90.2 MCH 31.4 MCHC 34.8 RDW 14.6 Plt Count 205 MPV 9.9 Immature Gran % (Auto) 0.3 Neut % (Auto) 69.7 Lymph % (Auto) 16.9 L [place] % (Auto) 8.5 Eos % (Auto) 4.1 H Baso % (Auto) 0.5 Lymph # (Auto) 1.3 [place] # (Auto) 0.7 Eos # (Auto) 0.3 Baso # (Auto) 0.0 Abs Immat Gran (auto) 0.02 Absolute Neuts (auto) 5.3 Absolute Nucleated RBC 0.000 Nucleated RBC % (auto) 0.0 Anion Gap 11 L Estim Creat Clear Calc 27.8 Estimated GFR 35 Random Glucose 101 Calcium 9.2 Magnesium 2.3 Total Bilirubin 0.8 Direct Bilirubin 0.3 AST 22 ALT 10 Alkaline Phosphatase 113 Troponin I High Sens 18.5 H NT-Pro-B Natriuret Pep 5025.2 H Total Protein 7.2 Albumin 3.7 COVID-19 ([facility]) Negative COVID-19 Clin Com See Note Assessment and Plan (1) CHF (congestive heart failure): Status: Acute Plan This is an 84-year-old female with history of hypertension, persistent AFib on Eliquis, CKD stage IIIB, severe mitral valve regurgitation, systolic heart failure EF 50-55%, CAD s/p CABG, dementia, peripheral arterial disease, hyperlipidemia, large hiatal hernia with GERD, Roger's esophagus, osteoarthritis, and chronic constipation who presents to the emergency department with weight gain and cough found to have acute CHF Acute on chronic HFpEF last echo 02/2025, preserved EF, moderate , mitral regurg pro-BNP 39179 compliant with meds, but has been eating a lot lately per family low sodium diet, follow Is&Os IV lasix trend troponin CAD s/p CABG continue metoprolol, statin when med rec complete persistent atrial fibrillation continue AC and BB when med rec complete barretts/GERD continue PPI dvt ppx - eliquis code status - FULL code Medication reconciliation pending at the time of admission Patient will likely require 2 midnight stay in the hospital for management of acute decompensated CHF requiring IV diuretics and close monitoring of respiratory status and renal function Quality Stroke Does the patient have a stroke diagnosis?: No VTE Prior VTE?: No VTE Risk Level:: Medical - moderate - high VTE Device Contraindication: N/A - Device Ordered VTE Drug Contraindication: N/A - Med Ordered
--- NOTE | 2025-08-19 18:45 | PHA.MEDREC ---
Addendum entered by Rose Mary Magana RPh 08/19/25 19:05: MED REC REVIEWED BY [facility] Original Note: Pharmacy Consult ? Medication Reconciliation Pharmacy has completed the medication reconciliation. Confirmed medication list with patient and family member. Patient took morning dose of medications.
[2025-08-19 19:03] LABS: Troponin-I High Sensitivity 20.5 ng/L (<3.5-17.0)
[2025-08-19 19:28] VITALS: BP 130/44; PULSE 75; RESP 16; TEMP 36.6; O2SAT 96
[2025-08-19 22:15] VITALS: BP 102/31; PULSE 69; RESP 17; TEMP 36.4; O2SAT 97
[2025-08-20] VITALS (9 sets, daily range): BP systolic 98–146; BP diastolic 32–64; PULSE 74–89; RESP 15–19; TEMP 36.2–36.8; O2SAT 96–100
--- NOTE | 2025-08-20 03:38 | HO.SKINPHOTO ---
Location: buttocks Category: Stage: 2 Length: 85 cm Width: 90 cm Depth: cm Location: Category: Stage: Length: Width: Depth: cm Location: Category: Stage: Length: Width: Depth: cm Location: Category: Stage: Length: Width: Depth: cm Location: Category: Stage: Length: Width: Depth: cm Location: Category: Stage: Length: Width: Depth: cm
[2025-08-20 05:28] LABS: Anion Gap 15 (12-20); Blood Urea Nitrogen 33 mg/dL (9-16); Calcium 9.1 mg/dL (8.4-10.2); Carbon Dioxide 25 mmol/L (22-29); Chloride 105 mmol/L (96-108); Creatinine Clr Calc Pharmacy 25.7; Estimated Glomerular Filt Rate 32; Potassium 3.8 mmol/L (3.3-5.1); Sodium 141 mmol/L (135-145)
[2025-08-20] MEDS: Furosemide 40 MG/4 ML VIAL IVPUSH (08:49)
[2025-08-20] MEDS: 0.9 % Sodium Chloride Flush 3 ML SYRINGE IVFLUSH ×3 (08:50→23:33)
[2025-08-20 09:09] LABS: Chlamydia pneumoniae PCR Not Detected (Not Detect.); Coronavirus 229E PCR Not Detected (Not Detect.); Coronavirus HKU1 PCR Not Detected (Not Detect.); Coronavirus NL63 PCR Not Detected (Not Detect.); Coronavirus OC43 PCR Not Detected (Not Detect.); RSV PCR Not Detected (Not Detect.); Rhino/Enterovirus PCR Not Detected (Not Detect.)
[2025-08-20 09:14] LABS: Influenza A H1 PCR Not Detected (Not Detect.); Influenza A H1-2009 PCR Not Detected (Not Detect.); Influenza A H3 PCR Not Detected (Not Detect.); SARS-CoV-2 PCR Not Detected (Not Detect.)
[2025-08-20 09:16] LABS: IDNOW Serial# 58CA691E; Influenza B2 Negative (Negative)
--- NOTE | 2025-08-20 09:45 | PC.NURSE ---
Assumed care of pt at 0700. Pt sitting upright in bed eating breakfast. A/ox3, respirations even and unlabored, no increased wob/sob noted, maintaining O2 sat >92% on RA. Denies sob/cp- no other complaints at this time. Pt medicated per JAN with morning medications. 22g IV R forearm found to be infiltrated- removed. New IV placed 22g R wrist- patent, asymptomatic. Pt placed on purewick, repositioned onto R side, new linens placed. Call betts within reach, all needs met at this time.
--- NOTE | 2025-08-20 11:07 | MHC.CM.PN ---
CM met with Patient at bedside, in the ED, and addressed IMM with her, providing Patient with the original and a copy will be placed on the chart. Patient lives in a house with her Son/Arnaldo and she uses a cane to assist with mobility. Patient may benefit from VNA r/t CHF and CM has initiated and will follow for dc planning. PCP is and Daughter will transport to home at dc. Son/[place] is the HCP.
--- NOTE | 2025-08-20 12:47 | P.PNIM_ITS ---
Subjective Subjective Date of Service: 08/20/25 Interval History: Patient is feeeling better, no sob this morning Physical Exam 2 Vital Signs: Vital Signs: Last Vital Signs Temp 98.2 F 08/20/25 11:45 Pulse 79 08/20/25 11:45 Resp 19 08/20/25 11:45 BP 125/50 L 08/20/25 11:45 Pulse Ox 96 08/20/25 11:45 O2 Del Method Room Air 08/20/25 11:45 BMI result Body Mass Index 25.9 Const: Other: General: AO X 3, no acute distress Resp: CTA bilateral CVS: S1,S2,RRR, no leg edema GI: +BS, NT, no distention Skin: No rash Neuro: motor grossly intact Psych: appropriate affect Objective Data Active Medications Acetaminophen (Acetaminophen 325 Mg Tablet) 650 mg PO Q6H PRN PRN Reason: Pain, Mild 1-3,fever,headache Apixaban (Apixaban 5 Mg Tablet) 5 mg PO BID [facility] Last Admin: 08/20/25 08:48 Dose: 5 mg Documented By: SUMANTH Atorvastatin Calcium (Atorvastatin Calcium 40 Mg Tablet) 40 mg PO BEDTIME [facility] Last Admin: 08/19/25 21:33 Dose: 40 mg Documented By: CHRISTY Calcium Carbonate (Calcium Carbonate 750 Mg Tab.Chew) 750 mg PO Q4H PRN PRN Reason: Heartburn Furosemide (Furosemide 40 Mg/4 Ml Vial) 40 mg IVPUSH BID@0900,1800 [facility]; Protocol Last Admin: 08/20/25 08:49 Dose: 40 mg Documented By: SUMANTH Furosemide (Furosemide 40 Mg Tablet) 40 mg PO BID@0900,1800 [facility]; Protocol Last Admin: 08/20/25 08:48 Dose: 40 mg Documented By: SUMANTH Magnesium Hydroxide (Milk Of Magnesia 30 Ml Oral.Susp) 30 ml PO DAILY PRN PRN Reason: Constipation Melatonin (Melatonin 3 Mg Tablet) 6 mg PO BEDTIME PRN PRN Reason: Insomnia Metoprolol Tartrate (Metoprolol Tartrate 25 Mg Tablet) 25 mg PO BID [facility]; Protocol Last Admin: 08/20/25 08:49 Dose: 25 mg Documented By: SUMANTH Multivitamins/Vitamin C (Multivitamin Tablet) 1 tab PO DAILY [facility] Last Admin: 08/20/25 08:48 Dose: 1 tab Documented By: SUMANTH Nystatin (Nystatin Cream 15 Gm Tube) 1 appl TOPICAL BID PRN; Protocol PRN Reason: affected area Nystatin (Nystatin Powder 15 Gm Bottle) 1 appl TOPICAL BID [facility]; Protocol Last Admin: 08/20/25 08:49 Dose: 1 appl Documented By: SUMANTH Omeprazole (Omeprazole 20 Mg Capsule.) 20 mg PO DAILY@0630 [facility] Last Admin: 08/20/25 06:18 Dose: 20 mg Documented By: LELAND Sodium Chloride (0.9 % Sodium Chloride Flush 3 Ml Syringe) 3 ml IVFLUSH QSHIFT [facility] Last Admin: 08/20/25 08:50 Dose: 3 ml Documented By: SUMANTH Vitamin D (Cholecalciferol (Vitamin D3) 25 Mcg Tablet) 25 mcg PO DAILY [facility] Last Admin: 08/20/25 08:48 Dose: 25 mcg Documented By: SUMANTH Labs 08/19/25 14:30 08/20/25 05:02 Labs: Laboratory Results - last 24 hr 08/19/25 08/19/25 08/20/25 14:30 18:24 05:02 MCV 90.2 MCH 31.4 MCHC 34.8 RDW 14.6 Plt Count 205 MPV 9.9 Immature Gran % (Auto) 0.3 Neut % (Auto) 69.7 Lymph % (Auto) 16.9 L [place] % (Auto) 8.5 Eos % (Auto) 4.1 H Baso % (Auto) 0.5 Lymph # (Auto) 1.3 [place] # (Auto) 0.7 Eos # (Auto) 0.3 Baso # (Auto) 0.0 Abs Immat Gran (auto) 0.02 Absolute Neuts (auto) 5.3 Absolute Nucleated RBC 0.000 Nucleated RBC % (auto) 0.0 Anion Gap 11 L 15 Estim Creat Clear Calc 27.8 25.7 Estimated GFR 35 32 Random Glucose 101 101 Calcium 9.2 9.1 Magnesium 2.3 Total Bilirubin 0.8 Direct Bilirubin 0.3 AST 22 ALT 10 Alkaline Phosphatase 113 Troponin I High Sens 18.5 H 20.5 H NT-Pro-B Natriuret Pep 5025.2 H Total Protein 7.2 Albumin 3.7 Respiratory Panel [place] Adenovirus (Rapid PCR) B.pert (TEM-PCR) B.parapertussis DNA PCR C. pneumoniae DNA (PCR) Coronavirus OC43 (PCR) Coronavirus HKU1 (PCR) Coronavirus 229E (PCR) COVID-19 (WU) Negative COVID-19 Clin Com See Note Coronavirus NL63 (PCR) Human Metapneumovir PCR Influenza Type A (MARY) Negative Influenza A (RT-PCR) Influenza A (H1) PCR Influ A (H1) PCR Influenza A (H3) PCR Influenza Type B (MARY) Negative Influenza B (RT-PCR) Influenza A & B Note See Note M. pneumoniae (PCR) Parainfluenza 1 (PCR) Parainfluenza 2 (PCR) Parainfluenza 3 (PCR) Parainfluenza 4 (PCR) RSV (PCR) Entero/Rhino (PCR) SARS-CoV-2 RNA (RT-PCR) 08/20/25 06:49 MCV MCH MCHC RDW Plt Count MPV Immature Gran % (Auto) Neut % (Auto) Lymph % (Auto) [place] % (Auto) Eos % (Auto) Baso % (Auto) Lymph # (Auto) [place] # (Auto) Eos # (Auto) Baso # (Auto) Abs Immat Gran (auto) Absolute Neuts (auto) Absolute Nucleated RBC Nucleated RBC % (auto) Anion Gap Estim Creat Clear Calc Estimated GFR Random Glucose Calcium Magnesium Total Bilirubin Direct Bilirubin AST ALT Alkaline Phosphatase Troponin I High Sens NT-Pro-B Natriuret Pep Total Protein Albumin Respiratory Panel [place] See Note Adenovirus (Rapid PCR) Not Detected B.pert (TEM-PCR) Not Detected B.parapertussis DNA PCR Not Detected C. pneumoniae DNA (PCR) Not Detected Coronavirus OC43 (PCR) Not Detected Coronavirus HKU1 (PCR) Not Detected Coronavirus 229E (PCR) Not Detected COVID-19 (WU) COVID-19 Clin Com Coronavirus NL63 (PCR) Not Detected Human Metapneumovir PCR Not Detected Influenza Type A (MARY) Influenza A (RT-PCR) Not Detected Influenza A (H1) PCR Not Detected Influ A (H1/) PCR Not Detected Influenza A (H3) PCR Not Detected Influenza Type B (MARY) Influenza B (RT-PCR) Not Detected Influenza A & B Note M. pneumoniae (PCR) Not Detected Parainfluenza 1 (PCR) Not Detected Parainfluenza 2 (PCR) Not Detected Parainfluenza 3 (PCR) Not Detected Parainfluenza 4 (PCR) Not Detected RSV (PCR) Not Detected Entero/Rhino (PCR) Not Detected SARS-CoV-2 RNA (RT-PCR) Not Detected Assessment and Plan (1) Acute exacerbation of chronic heart failure: Status: Inactive (2) Acute kidney injury superimposed on stage 3b chronic kidney disease: Status: Acute Plan This is an 84-year-old female with history of hypertension, persistent AFib on Eliquis, CKD stage IIIB, severe mitral valve regurgitation, systolic heart failure EF 50-55%, CAD s/p CABG, dementia, peripheral arterial disease, hyperlipidemia, large hiatal hernia with GERD, Roger's esophagus, osteoarthritis, and chronic constipation who presents to the emergency department with weight gain and cough found to have acute CHF Acute on chronic HFpEF last echo 02/2025, preserved EF, moderate , mitral regurg pro-BNP [id number] compliant with meds, but has been eating a lot of salt lately per family low sodium diet, follow Is&Os -1300 IV lasix for 1 more day, then change to oral lasix follow Bmp CAD s/p CABG continue metoprolol, statin when med rec complete persistent atrial fibrillation continue Eliquis barretts/GERD continue PPI dvt ppx - eliquis code status - FULL code Medication reconciliation pending at the time of admission Patient will likely require 2 midnight stay in the hospital for management of acute decompensated CHF requiring IV diuretics and close monitoring of respiratory status and renal function anticipate dc tomorrow Quality Stroke Does the patient have a stroke diagnosis?: No VTE Prior VTE?: No VTE Risk Level:: Medical - moderate - high VTE Device Contraindication: N/A - Device Ordered VTE Drug Contraindication: N/A - Med Ordered
--- NOTE | 2025-08-20 22:03 | PC.NURSE ---
patient awake and alert. skin pwd, resp even and non labored, speaking in full, clear sentences. denies chest pain or SOB. able to make needs known. patient c/o cramping to bilateral lower extremities, assisted to sitting on side of bed per patient request. medicated w/ evening medications. wound on buttocks remains excoriated w/ small amount of bloody drainage, care provided and nystatin applied per order. pure wick in place
--- NOTE | 2025-08-21 01:03 | PC.NURSE ---
patient sleeping. skin pwd, resp even and non labored, appears comfortable at this time
[2025-08-21 07:26] VITALS: BP 113/50; PULSE 79; RESP 14; TEMP 36.4; O2SAT 98
[2025-08-21 08:44] VITALS: BP 113/50
[2025-08-21 08:53] VITALS: BP 113/50; PULSE 79
[2025-08-21] MEDS: 0.9 % Sodium Chloride Flush 3 ML SYRINGE IVFLUSH ×3 (09:49→22:18)
--- NOTE | 2025-08-21 10:35 | PC.NURSE ---
Pt A&O X4 VSS NAD, given Zofran for Nausea- Provider in earlier to eval pt and aware of CIWA 3. Also aware pt did not receive 3rd IM Pheno at 1900 last night per documentation for low RR. Provider states OK to progress on PO as ordered. Will re-eval as needed.No other complaints IVF infusing as ordered. Pt tried broth this am and it caused pain. Provider aware- pt advised to go slow
--- NOTE | 2025-08-21 10:40 | PC.NURSE ---
Pt A&O X4 timmy bkfts well. NAD denies complaints- resting at this time. VSS
--- NOTE | 2025-08-21 14:59 | PC.NURSE ---
Hospitalist here for eval, plan to d/c after labs.
[2025-08-21 15:47] VITALS: BP 121/39; PULSE 77; RESP 17; TEMP 36.5; O2SAT 97
[2025-08-21 16:09] LABS: Anion Gap 12 (12-20); Blood Urea Nitrogen 37 mg/dL (9-16); Calcium 9.4 mg/dL (8.4-10.2); Carbon Dioxide 28 mmol/L (22-29); Chloride 101 mmol/L (96-108); Creatinine Clr Calc Pharmacy 25.0; Estimated Glomerular Filt Rate 31; Potassium 3.9 mmol/L (3.3-5.1); Sodium 137 mmol/L (135-145)
--- NOTE | 2025-08-21 16:17 | MHC.EDTECH ---
Pt ambulate to and from bathroom with a walker. On her walk back, she stated she felt very weak and wouldn't be doing that again in reference to walking to the bathroom from her room. Pt able to get herself back into bed, call betts within reach. Lupe GARHAM aware.
--- NOTE | 2025-08-21 16:43 | HO.PM.IMPN ---
Subjective Subjective Date of Service: 08/21/25 Interval History: No shortness a breath but generally feels weak Physical Exam Vital Signs: Vital Signs: Last Vital Signs Temp 97.7 F 08/21/25 15:47 Pulse 77 08/21/25 15:47 Resp 17 08/21/25 15:47 BP 121/39 L 08/21/25 15:47 Pulse Ox 97 08/21/25 15:47 O2 Del Method Room Air 08/21/25 15:47 BMI result Body Mass Index 25.9 Const: Other: General: AO X 3, no acute distress Resp: CTA bilateral CVS: S1,S2,RRR, no leg edema GI: +BS, NT, no distention Skin: No rash Neuro: motor grossly intact Psych: appropriate affect Objective Data Active Medications Acetaminophen (Acetaminophen 325 Mg Tablet) 650 mg PO Q6H PRN PRN Reason: Pain, Mild 1-3,fever,headache Apixaban (Apixaban 2.5 Mg Tablet) 2.5 mg PO BID [facility] Last Admin: 08/21/25 08:43 Dose: 2.5 mg Documented By: DON Atorvastatin Calcium (Atorvastatin Calcium 40 Mg Tablet) 40 mg PO BEDTIME [facility] Last Admin: 08/20/25 21:53 Dose: 40 mg Documented By: MARLEN Calcium Carbonate (Calcium Carbonate 750 Mg Tab.Chew) 750 mg PO Q4H PRN PRN Reason: Heartburn Furosemide (Furosemide 40 Mg Tablet) 40 mg PO BID@0900,1800 [facility]; Protocol Last Admin: 08/21/25 08:44 Dose: 40 mg Documented By: DON Magnesium Hydroxide (Milk Of Magnesia 30 Ml Oral.Susp) 30 ml PO DAILY PRN PRN Reason: Constipation Melatonin (Melatonin 3 Mg Tablet) 6 mg PO BEDTIME PRN PRN Reason: Insomnia Metoprolol Tartrate (Metoprolol Tartrate 25 Mg Tablet) 25 mg PO BID [facility]; Protocol Last Admin: 08/21/25 08:53 Dose: 25 mg Documented By: DON Multivitamins/Vitamin C (Multivitamin Tablet) 1 tab PO DAILY [facility] Last Admin: 08/21/25 08:43 Dose: 1 tab Documented By: DON Nystatin (Nystatin Cream 15 Gm Tube) 1 appl TOPICAL BID PRN; Protocol PRN Reason: affected area Nystatin (Nystatin Powder 15 Gm Bottle) 1 appl TOPICAL BID [facility]; Protocol Last Admin: 08/21/25 09:52 Dose: 1 appl Documented By: DON Omeprazole (Omeprazole 20 Mg Deyanira.) 20 mg PO DAILY@0630 [facility] Last Admin: 08/21/25 05:55 Dose: 20 mg Documented By: LYNDSAY Sodium Chloride (0.9 % Sodium Chloride Flush 3 Ml Syringe) 3 ml IVFLUSH QSHIFT [facility] Last Admin: 08/21/25 09:49 Dose: 3 ml Documented By: DON Vitamin D (Cholecalciferol (Vitamin D3) 25 Mcg Tablet) 25 mcg PO DAILY [facility] Last Admin: 08/21/25 08:43 Dose: 25 mcg Documented By: DON Labs 08/19/25 14:30 08/21/25 15:44 Labs: Laboratory Results - last 24 hr 08/21/25 15:44 Anion Gap 12 Estim Creat Clear Calc 25.0 Estimated GFR 31 Random Glucose 88 Calcium 9.4 Assessment and Plan (1) Acute exacerbation of chronic heart failure: Status: Inactive (2) Acute kidney injury superimposed on stage 3b chronic kidney disease: Status: Acute Plan This is an 84-year-old female with history of hypertension, persistent AFib on Eliquis, CKD stage IIIB, severe mitral valve regurgitation, systolic heart failure EF 50-55%, CAD s/p CABG, dementia, peripheral arterial disease, hyperlipidemia, large hiatal hernia with GERD, Roger's esophagus, osteoarthritis, and chronic constipation who presents to the emergency department with weight gain and cough found to have acute CHF Acute on chronic HFpEF last echo 02/2025, preserved EF, moderate , mitral regurg pro-BNP [id number] compliant with meds, but has been eating a lot of salt lately per family low sodium diet, follow Is&Os -1300 PO Lasix follow Bmp CAD s/p CABG continue metoprolol, statin when med rec complete persistent atrial fibrillation continue Eliquis SHANNAN on CKD, Cr slightly high Monitor, hold Lasix today Weakness, PT eval barretts/GERD continue PPI dvt ppx - eliquis code status - FULL code Medication reconciliation pending at the time of admission Patient will likely require 2 midnight stay in the hospital for management of acute decompensated CHF requiring IV diuretics and close monitoring of respiratory status and renal function anticipate dc tomorrow Quality Stroke Does the patient have a stroke diagnosis?: No VTE Prior VTE?: No VTE Risk Level:: Medical - moderate - high VTE Device Contraindication: N/A - Device Ordered VTE Drug Contraindication: N/A - Med Ordered
[2025-08-21 22:00] VITALS: BP 134/61; PULSE 77; RESP 18; TEMP 35.7; O2SAT 97
[2025-08-21 23:53] VITALS: BP 145/67; PULSE 81; RESP 18; TEMP 35.8; O2SAT 96
[2025-08-22] VITALS (7 sets, daily range): BP systolic 110–138; BP diastolic 55–63; PULSE 59–81; RESP 16–18; TEMP 36.2–37.1; O2SAT 95–98
[2025-08-22] MEDS: 0.9 % Sodium Chloride Flush 3 ML SYRINGE IVFLUSH ×3 (08:43→20:34)
--- NOTE | 2025-08-22 12:27 | P.PNIM_ITS ---
Subjective Subjective Date of Service: 08/22/25 Interval History: No shortness a breath but generally feels weak PT recommending STR Physical Exam 2 Exam: Exam: t Vital Signs: Vital Signs: Last Vital Signs Temp 97.2 F 08/22/25 11:09 Pulse 64 08/22/25 11:09 Resp 18 08/22/25 11:09 BP 123/58 L 08/22/25 11:09 Pulse Ox 96 08/22/25 11:09 O2 Del Method Room Air 08/22/25 11:09 BMI result Body Mass Index 25.9 Const: Other: General: AO X 3, no acute distress Resp: CTA bilateral CVS: S1,S2,RRR, no leg edema GI: +BS, NT, no distention Skin: No rash Neuro: motor grossly intact Psych: appropriate affect Objective Data Active Medications Acetaminophen (Acetaminophen 325 Mg Tablet) 650 mg PO Q6H PRN PRN Reason: Pain, Mild 1-3,fever,headache Apixaban (Apixaban 2.5 Mg Tablet) 2.5 mg PO BID [facility] Last Admin: 08/22/25 08:44 Dose: 2.5 mg Documented By: RAMY Atorvastatin Calcium (Atorvastatin Calcium 40 Mg Tablet) 40 mg PO BEDTIME [facility] Last Admin: 08/21/25 22:06 Dose: 40 mg Documented By: ALMA Calcium Carbonate (Calcium Carbonate 750 Mg Tab.Chew) 750 mg PO Q4H PRN PRN Reason: Heartburn Furosemide (Furosemide 40 Mg Tablet) 40 mg PO BID@0900,1800 [facility]; Protocol On Hold: 08/21/25 16:44 Last Admin: 08/21/25 08:44 Dose: 40 mg Documented By: DON Magnesium Hydroxide (Milk Of Magnesia 30 Ml Oral.Susp) 30 ml PO DAILY PRN PRN Reason: Constipation Melatonin (Melatonin 3 Mg Tablet) 6 mg PO BEDTIME PRN PRN Reason: Insomnia Metoprolol Tartrate (Metoprolol Tartrate 25 Mg Tablet) 25 mg PO BID [facility]; Protocol Last Admin: 08/22/25 08:44 Dose: 25 mg Documented By: RAMY Multivitamins/Vitamin C (Multivitamin Tablet) 1 tab PO DAILY [facility] Last Admin: 08/22/25 08:44 Dose: 1 tab Documented By: RAMY Nystatin (Nystatin Cream 15 Gm Tube) 1 appl TOPICAL BID PRN; Protocol PRN Reason: affected area Nystatin (Nystatin Powder 15 Gm Bottle) 1 appl TOPICAL BID [facility]; Protocol Last Admin: 08/22/25 08:48 Dose: 1 appl Documented By: RAMY Omeprazole (Omeprazole 20 Mg Capsule.) 20 mg PO DAILY@0630 [facility] Last Admin: 08/22/25 05:38 Dose: 20 mg Documented By: ALMA Sodium Chloride (0.9 % Sodium Chloride Flush 3 Ml Syringe) 3 ml IVFLUSH QSHIFT [facility] Last Admin: 08/22/25 08:43 Dose: 3 ml Documented By: RAMY Vitamin D (Cholecalciferol (Vitamin D3) 25 Mcg Tablet) 25 mcg PO DAILY [facility] Last Admin: 08/22/25 08:44 Dose: 25 mcg Documented By: RAMY Labs 08/19/25 14:30 08/21/25 15:44 Labs: Laboratory Results - last 24 hr 08/21/25 15:44 Anion Gap 12 Estim Creat Clear Calc 25.0 Estimated GFR 31 Random Glucose 88 Calcium 9.4 Assessment and Plan (1) Acute exacerbation of chronic heart failure: Status: Inactive (2) Acute kidney injury superimposed on stage 3b chronic kidney disease: Status: Acute Plan This is an 84-year-old female with history of hypertension, persistent AFib on Eliquis, CKD stage IIIB, severe mitral valve regurgitation, systolic heart failure EF 50-55%, CAD s/p CABG, dementia, peripheral arterial disease, hyperlipidemia, large hiatal hernia with GERD, Roger's esophagus, osteoarthritis, and chronic constipation who presents to the emergency department with weight gain and cough found to have acute CHF Acute on chronic HFpEF last echo 02/2025, preserved EF, moderate , mitral regurg pro-BNP [id number] compliant with meds, but has been eating a lot of salt lately per family low sodium diet, follow Is&Os -1300 PO Lasix on hold d/t renal failure follow Bmp CAD s/p CABG continue metoprolol, statin when med rec complete persistent atrial fibrillation continue Eliquis SHANNAN on CKD, Cr slightly high Monitor, hold Lasix today, recheck Cr Weakness, PT eval barretts/GERD continue PPI dvt ppx - eliquis code status - FULL code Medication reconciliation pending at the time of admission Patient will likely require 2 midnight stay in the hospital for management of acute decompensated CHF requiring IV diuretics and close monitoring of respiratory status and renal function anticipate dc tomorrow to str Quality Stroke Does the patient have a stroke diagnosis?: No VTE Prior VTE?: No VTE Risk Level:: Medical - moderate - high VTE Device Contraindication: N/A - Device Ordered VTE Drug Contraindication: N/A - Med Ordered
--- NOTE | 2025-08-22 12:30 | HO.WOUND ---
Wound Consult: Initial 85yr old?[place] [facility] [place] See progress notes and H&P for detailed history.? Wound consult placed for perianal area.? Patient agreeable to assessment and photo documentation.? 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 No Induration, Fluctuance or Warmth noted Pain: reports tenderness Goals of Treatment: ? Triad to protect from moisture and friction There is a abnormal presentation to this site - it does not appear entirely consistent with MASD - IAD patient reports she has had for sometime she was last seen by this screen writer in february of this year and the wound bed remains the same. Would consider outpt follow up with provider and to consider biopsy if no improvement noted. Recommendations: 1. Turn and Reposition every 2 hours and as needed for patient comfort.? Use pillows or wedges to support off loading positions. 2. Off Load all bony prominences with use of pillows and heel boots if needed.? Apply Preventative foams where needed. ? 3. Monitor for incontinence and moisture control, use barrier creams when needed for prevention and treatment. 4. Provide adequate and supplemental nutrition.? 5. Order low air loss mattress. 6. When applicable maintain blood glucose levels per Providers order. Intergluteal - Off Load Pressure with Q2 hr turns and use of pillows - Cleanse with PH balance spray or wipes, pat dry. ?Apply thin layer of Triad to wound bed - only pat and dab no scrub and rub when soiling occurs. Reapply thin layer PRN after each episode of incontinence. Do not use Foam dressing as this is trapping moisture. Would consider outpt follow up with provider and to consider biopsy if no improvement noted. Re-consult wound care Nurse for wound deterioration or wound changes.
[2025-08-22 13:53] LABS: Anion Gap 10 (12-20); Blood Urea Nitrogen 38 mg/dL (9-16); Calcium 9.4 mg/dL (8.4-10.2); Carbon Dioxide 31 mmol/L (22-29); Chloride 103 mmol/L (96-108); Creatinine Clr Calc Pharmacy 31.0; Estimated Glomerular Filt Rate 40; Potassium 4.0 mmol/L (3.3-5.1); Sodium 140 mmol/L (135-145)
--- NOTE | 2025-08-22 14:32 | P.DS_ITS ---
DS: Providers Provider Date of Service: 08/22/25 Date of admission: 08/19/25 17:17 Date of discharge: 08/22/25 Primary care physician: Edwin Allen MD Consults: 08/21/25 21:58 Consult to Wound Care Routine Reason for consultation: redness to buttock DS: Diagnosis Discharge Diagnosis (1) Acute exacerbation of chronic heart failure: Status: Inactive (2) Acute kidney injury superimposed on stage 3b chronic kidney disease: Status: Acute DS: Summary Hospital Course Hospital Course: admission hpi Chief Complaint: weight gain, cough This is an 85-year-old female with history of CHF, dementia was brought to the emergency department by her daughter due to cough. Patient history was primarily obtained from her daughter at the bedside. Her daughter states that she has been feeling unwell for the past several days although she the patient has been unable to verbalize what has been bothering her. Her daughter monitors her weight in his noticed a 6-8 lb weight gain over the past week. She had a cough over the past 4-5 days which started as a dry cough but has progressed to productive. She has no associated fever nasal congestion, body aches, joint pain or any recent sick contacts. In the emergency department her lab work was relatively unremarkable with the exception of an elevated proBNP which was 5025. Chest x-ray showing cardiomegaly. Patient received a dose of IV Lasix in the decision was made to admit her for further management hospital course This is an 84-year-old female with history of hypertension, persistent AFib on Eliquis, CKD stage IIIB, severe mitral valve regurgitation, systolic heart failure EF 50-55%, CAD s/p CABG, dementia, peripheral arterial disease, hyperlip idemia, large hiatal hernia with GERD, Roger's esophagus, osteoarthritis, and chronic constipation who presents to the emergency department with weight gain and cough found to have acute CHF Acute on chronic HFpEF, last echo 02/2025, preserved EF, moderate , mitral regurgpro-BNP 86171 compliant with meds, but has been eating a lot of salt lately per family. Was treated with IV Lasix with good effect and presently appear euvolemic. Should avoid salty food, adhere to 1200 cc fluid restriction. CAD s/p CABG continue metoprolol, statin when med rec complete persistent atrial fibrillation continue Eliquis ARTHUR on CKD, Creatine bumped to 1.59 amd mpw back down to 1.28 Weakness, PT recommends STR, she is agreable barretts/GERD continue PPI Time Attestation Discharge Coordination Time (in mins): 45 Quality: Safe Use of Opioids Does Pt have an Active Cancer Diagnosis on the Problem List?: Yes Opioid Measure Date for [facility] Report: 07/23/25 Opioid Measure Time for [facility] Report: 14:32 Quality: Stroke Does the patient have a stroke diagnosis?: No Physical Exam Vital Signs: Vital Signs: Last Vital Signs Temp 97.2 F 08/22/25 11:09 Pulse 64 08/22/25 11:09 Resp 18 08/22/25 11:09 BP 123/58 L 08/22/25 11:09 Pulse Ox 96 08/22/25 11:09 O2 Del Method Room Air 08/22/25 11:09 BMI result Body Mass Index 25.9 General: AO X 3, no acute distress Resp: CTA bilateral CVS: S1,S2,RRR GI: +BS, NT, no distention Skin: No rash Neuro: motor grossly intact Psych: appropriate affect DS: Data Data Completed and Pending Labs on day of discharge: Laboratory Results - last 24 hr 08/21/25 08/22/25 15:44 12:50 Sodium 137 140 Potassium 3.9 4.0 Chloride 101 103 Carbon Dioxide 28 31 H Anion Gap 12 10 L BUN 37 H 38 H Creatinine 1.59 H 1.28 Estim Creat Clear Calc 25.0 31.0 Estimated GFR 31 40 Random Glucose 88 91 Calcium 9.4 9.4 Discharge Plan Discharge Anticipated Discharge Date/Time: 08/22/25 14:29 Patient Disposition: Home, Self-Care Discharge Diagnosis: CHF exacerbation, Arthur Referrals: Po,Edwin Garcia MD [Primary Care Provider, Internal Medicine] - 1 Week Discharge Medications: Continued metoprolol tartrate 25 mg tablet 25 mg PO BID 90 Days Qty: 180 3RF Eliquis 5 mg tablet 5 mg PO BID Qty: 180 3RF furosemide 40 mg tablet 40 mg PO BID@0900,1800 90 Days Qty: 180 0RF Protocol: Hold for SBP< HOLD for SBP < : 90 atorvastatin 40 mg tablet 40 mg PO BEDTIME Qty: 90 0RF nystatin 100,000 unit/gram Cream 1 appl topical BID Qty: 1 0RF Protocol: Apply to: Apply to: gluteal fold and affected area of perineum multivitamin Tablet 1 tab PO DAILY lisinopril 2.5 mg tablet 2.5 mg PO DAILY Qty: 90 3RF cholecalciferol (vitamin D3) 25 mcg (1,000 unit) capsule 25 mcg PO DAILY omeprazole 20 mg capsule,delayed release(DR/EC) 20 mg PO DAILY Qty: 180 2RF Discharge Orders: Discharge Order (Routine); Ordered 08/22/25 Ordered By: Miguel Fonseca Diet: Advance to usual diet Activity on Discharge: As tolerated Stand Alone Forms: Patient Portal Discharge page Print Language: Senegalese Activity Restrictions/Additional Instructions: Topical Wound Care Recommendations: Intergluteal - Off Load Pressure with Q2 hr turns and use of pillows - Cleanse with PH balance spray or wipes, pat dry. ?Apply thin layer of Triad to wound bed - only pat and dab no scrub and rub when soiling occurs. Reapply thin layer PRN after each episode of incontinence. Do not use Foam dressing as this is trapping moisture. Would consider outpt follow up with provider and to consider biopsy if no improvement noted. Care Plan Goals: recovery from heart failure Health Concerns: heart failure Plan of Treatment: continue all your medications as before, don't drink too much water, no more than 1200 cc a day avoid salty food Follow up with your Doctor in a week Assessment: see above
--- NOTE | 2025-08-22 19:05 | PC.NURSE ---
Pt denies pain and discomfort per pain scale. Pt to be dc to short term rehab tomorrow.
[2025-08-22] MEDS: Milk of Magnesia 30 ML ORAL.SUSP PO (20:32)
[2025-08-23] VITALS: BP 112/55; PULSE 64; RESP 18; TEMP 36.3; O2SAT 96
[2025-08-23 03:12] VITALS: BP 128/55; PULSE 71; RESP 16; TEMP 36.1; O2SAT 96
[2025-08-23 07:12] VITALS: BP 153/68; PULSE 76; RESP 18; TEMP 36.3; O2SAT 96
[2025-08-23 08:52] VITALS: BP 153/68; PULSE 76
[2025-08-23] MEDS: 0.9 % Sodium Chloride Flush 3 ML SYRINGE IVFLUSH (08:53)
--- NOTE | 2025-08-23 09:27 | MHC.CM.PN ---
CM received a call from pt.'s dtr to say that she wants to bring her mom home, she lives with dtr who takes care of her. She will go home via family transport and have home care services from [facility]. Second IMM delivered.
--- NOTE | 2025-08-23 11:19 | W.MHC.F2F ---
Service Date Service Date: 08/23/25 Encounter Date of encounter: 08/23/25 Reasons for Services Signs and symptoms assessed: sob due to heart failure Reason for mcfp: medication management and teach disease management Reason for physical therapy: therapeutic exercises and energy conservation Homebound: Leaving the home is medically contraindicated at this time without the asist of a device and/or another person due th the listed conditions above and below. Reason homebound: shortness of breath with minimal effort Homebound supporting statement: homebound due to heart failure exacerbatioon causing easy sob, especially with exertion and therefore needs the assistance of another person Certification: Based on the above findings, I certify that this patient is confined to the home and needs intermittent mcfp care, physical therapy and/or speech therapy, or continues to need occupational therapy. The patient is under my care, and I have initiated the establishment of the plan of care. The patient will be followed by a physician who will periodically review the plan of care. Time Spent With Patient Time: Total time managing care of this patient today ____ minutes.
[2025-08-23 11:33] VITALS: BP 145/63; PULSE 73; RESP 18; TEMP 36.6; O2SAT 97
--- NOTE | 2025-08-23 11:44 | MHC.CM.PN ---
Addendum entered by Merlyn Santillan 08/23/25 11:45: Second IMM delivered. Original Note: IMM 08/23/25, Pt. has been medically cleared, she will go home via family transport and have home care services from [facility].
== END 2025-08-23 13:55 | disposition home health service (06) | DRG 291 ==
LOC: HO.ED 16:04 → HO.EDOVER 17:21 → HO.IMC 08-21 16:48
PROVIDERS: Nurse Practitioner Family; Physician Assistant Medical; Admitting Provider Physician Assistant Medical; Emergency Provider Emergency Medicine Emergency Medical Services; PCP Internal Medicine; Visit Provider Internal Medicine
DX: I13.0 Hypertensive heart and chronic kidney disease with heart failure and stage 1 through stage 4 chronic kidney disease, or unspecified chronic kidney disease (principal); I50.33 Acute on chronic diastolic (congestive) heart failure; N17.9 Acute kidney failure, unspecified; I48.19 Other persistent atrial fibrillation; N18.32 Chronic kidney disease, stage 3b; F03.90 Unspecified dementia, unspecified severity, without behavioral disturbance, psychotic disturbance, mood disturbance, and anxiety; K22.70 Barrett's esophagus without dysplasia; K21.9 Gastro-esophageal reflux disease without esophagitis; I25.10 Atherosclerotic heart disease of native coronary artery without angina pectoris; Z95.1 Presence of aortocoronary bypass graft; Z20.822 Contact with and (suspected) exposure to COVID-19; Z87.891 Personal history of nicotine dependence; Z79.01 Long term (current) use of anticoagulants; Z79.899 Other long term (current) drug therapy
CPT/HCPCS: 36415; 71046; 80048; 80076; 83735; 83880; 84484; 85025; 87502; 87633; 87635; 93005; 97162; 99222; 99285; J1938

== ENCOUNTER → 2025-08-19 14:19 | Outpatient (BNV) | payer MEDICARE, SELFPAY ==
[2022-10-20 12:25] VITALS: BP 116/64; BMI 28.6
== END ==
PROVIDERS: Emergency Provider Emergency Medicine Emergency Medical Services; PCP Internal Medicine; Visit Provider Radiology Diagnostic Radiology
DX: I51.7 Cardiomegaly (principal); K44.9 Diaphragmatic hernia without obstruction or gangrene
CPT/HCPCS: 71046

== ENCOUNTER → 2025-08-19 16:04 | Outpatient (BNV) | payer MEDICARE, SELFPAY ==
[2022-10-20 12:25] VITALS: BP 116/64; BMI 28.6
== END ==
PROVIDERS: Admitting Provider Physician Assistant Medical; Emergency Provider Emergency Medicine Emergency Medical Services; PCP Internal Medicine; Visit Provider Internal Medicine
DX: I48.91 Unspecified atrial fibrillation (principal); I25.2 Old myocardial infarction; Z95.0 Presence of cardiac pacemaker
CPT/HCPCS: 93010

== ENCOUNTER → 2025-08-19 17:17 | Outpatient (BNV) | payer MEDICARE, SELFPAY ==
[2022-10-20 12:25] VITALS: BP 116/64; BMI 28.6
== END ==
PROVIDERS: Admitting Provider Physician Assistant Medical; Emergency Provider Emergency Medicine Emergency Medical Services; PCP Internal Medicine; Visit Provider Internal Medicine
DX: I50.9 Heart failure, unspecified (principal); N17.9 Acute kidney failure, unspecified; N18.32 Chronic kidney disease, stage 3b
CPT/HCPCS: 99499

== ENCOUNTER 2025-10-16 12:30 | Outpatient (REF) | payer MEDICARE, SELFPAY ==
[2022-10-20 12:25] VITALS: BP 116/64; BMI 28.6
--- NOTE | ~2025-10-16 | US_ITS ---
EXAMINATION: Noninvasive assessment of the bilateral lower extremities with ARTERIAL DUPLEX, ANKLE BRACHIAL INDICES (ABIs), and PULSE VOLUME RECORDINGS (PVRs). CLINICAL INFORMATION: I 73.9 TECHNIQUE: Duplex Doppler techniques with waveform analysis and measurement of velocities in the bilateral common femoral, profunda femoris, superficial femoral, popliteal and tibial arteries were performed. Additionally, ankle pulse volume recordings, ankle pressure measurements and ankle brachial indices were obtained of the lower extremity arterial system bilaterally. The study was performed only at rest. COMPARISON: October 11, 2024. FINDINGS: DIRECT DUPLEX DOPPLER FINDINGS: RIGHT LEG: Common femoral artery: 286 cm/s, phasicity: Biphasic. Profunda femoris artery: 82 cm/s, phasicity: Biphasic. Superficial femoral artery (proximal): 95 cm/s, phasicity: Biphasic. Superficial femoral artery (mid): 46 cm/s, phasicity: Biphasic. Superficial femoral artery (distal): 40 cm/s, phasicity: Biphasic. Popliteal artery: 148 cm/s, phasicity: Biphasic. Posterior tibial artery: 42 cm/s, phasicity: Biphasic. Peroneal artery: No color Doppler flow. Anterior tibial artery: 28 cm/s, phasicity: Biphasic. Dorsalis pedis artery: 20 cm/s, phasicity:Biphasic. LEFT LEG: Common femoral artery: 174 cm/s, phasicity: Biphasic. Spectral broadening. Profunda femoris artery: 58 cm/s, phasicity: Biphasic. Spectral broadening. Superficial femoral artery (proximal): 95 cm/s, phasicity: Biphasic. Spectral broadening. Superficial femoral artery (mid): 59 cm/s, phasicity: Biphasic. Superficial femoral artery (distal): 43 cm/s, phasicity: Biphasic. Popliteal artery: 66 cm/s, phasicity: Biphasic. Spectral broadening. Posterior tibial artery: 61 cm/s, phasicity: Biphasic. Spectral broadening. Peroneal artery: 44 cm/s, phasicity: Biphasic. Spectral broadening. Anterior tibial artery: 45 cm/s, phasicity: Biphasic. Spectral broadening. Dorsalis pedis artery: 27 cm/s, phasicity: Biphasic. Spectral broadening. BRACHIAL PRESSURES: Right: 134 Left: Note calculated/provided secondary to rotator cuff injury. ANKLE PRESSURES: Right: PT 163, DP 83 Left: PT 151, DP 74 ANKLE-BRACHIAL INDEX: Right: 1.22 Left: 1.13 ANKLE PVR WAVEFORMS: Right: Abnormal Left: Abnormal US/US arterial duplex BI w/ YURI IMPRESSION: Right leg: Moderate inflow disease throughout the interrogated arteries. No color Doppler flow, right peroneal artery suggesting occlusion. Left leg: Moderate inflow disease throughout the interrogated arteries. YURI Reference: - >1.4 = calcified vessels - 0.9 - 1.4 = normal - no significant arterial disease - 0.7 - 0.89 = mild peripheral arterial disease - 0.51 - 0.69 = moderate peripheral arterial disease - 0.50 = severe peripheral arterial disease - < .30 = critical arterial disease Electronically signed by: Eduar Lu MD 10/16/2025 03:53 PM EST
--- OUTSIDE RECORDS SUMMARY | 2025-10-17 01:01 | XMS_ITS | Encounter Summary ---
Author Organization [facility] [address] Address [address] [place] [address] Care Team Providers Care Induction Machine Operator Name Role Phone Edwin Allen MD Primary Care Provider [phone] Encounter Details Date Type Department Care Team (Late st Contact Info) Description 03/22/2025 Lab Requisition [facility] - Main Lab [address] [facility] [place] [address] Peg Yañez MD [address] [place], [place] [id number] Hypotension, unspecified Social History Tobacco Use Types [...] mmol/L LAB CHEMISTRY METHOD 03/22/2025 10:55 AM [facility] Chloride 102 96 - 110 mmol/L LAB CHEMISTRY METHOD 03/22/2025 10:55 AM [facility] CO2 28 21 - 32 mmol/L LAB CHEMISTRY METHOD 03/22/2025 10:55 AM [facility] Anion Gap 7 3 - 11 LAB CHEMISTRY METHOD 03/22/2025 10:55 AM [facility] Glucose 73 70 - 100 mg/dL LAB CHEMISTRY METHOD 03/22/2025 10:55 AM [facility] BUN 42(H) 5 - 25 mg/dL LAB CHEMISTRY METHOD 03/22/2025 10:55 AM [facility] Creatinine 1.53(H) 0.50 - 1.10 mg/dL LAB CHEMISTRY METHOD 03/22/2025 10:55 AM [facility] eGFR 34(L) >=60 mL/min/1. 73m2 LAB CHEMISTRY METHOD 03/22/2025 10:55 AM [facility] Comment:Calculation based on the Chronic Kidney Disease Epidemiology Collaboration (CKD-EPI) equation refit without adjustment for race. BUN/Creatinine Ratio 27.5 LAB CHEMISTRY METHOD 03/22/2025 10:55 AM [facility] Calcium 8.5 8.5 - 10.5 mg/dL LAB CHEMISTRY METHOD 03/22/2025 10:55 AM [facility] Blood Venous blood specimen / Unknown Venipuncture / Unknown 03/22/2025 6:08 AM EDT 03/22/2025 9:27 AM EDT us Peg Yañez MD LAB BLOOD ORDERABLES Final Resul t [facility] [address] [place] [address], * (ABNORMAL) Complete blood count (03/22/2025 6:08 AM EDT) [facility] WBC 7.2 4.8 - 10.8 K/mcL LAB HEMETOLOGY METHOD 03/22/2025 11:00 AM [facility] RBC 3.70(L) 3.80 - 4.80 M/mcL LAB HEMETOLOGY METHOD 03/22/2025 11:00 AM [facility] Hemoglobin 11.4(L) 11.5 - 16.0 g/dL LAB HEMETOLOGY METHOD 03/22/2025 11:00 AM [facility] Hematocrit 34.3(L) 35.0 - 47.0 % LAB HEMETOLOGY METHOD 03/22/2025 11:00 AM [facility] MCV 92.5 79.0 - 98.0 FL LAB HEMETOLOGY METHOD 03/22/2025 11:00 AM [facility] MCH 30.7 27.0 - 32.0 pcg LAB HEMETOLOGY METHOD 03/22/2025 11:00 AM [facility] MCHC 33.2 32.0 - 37.0 g/dL LAB HEMETOLOGY METHOD 03/22/2025 11:00 AM [facility] RDW 14.0 11.0 - 15.0 % LAB HEMETOLOGY METHOD 03/22/2025 11:00 AM [facility] Platelets 252 130 - 400 K/mcL LAB HEMETOLOGY METHOD 03/22/2025 11:00 AM [facility] MPV 10.8 7.0 - 11.0 FL LAB HEMETOLOGY METHOD 03/22/2025 11:00 AM [facility] NRBC 0.0 <1.0 % LAB HEMETOLOGY METHOD 03/22/2025 11:00 AM [facility] NRBC Absolute 0.00 <0.10 K/mcL LAB HEMETOLOGY METHOD 03/22/2025 11:00 AM EDT [facility] Blood Venous blood specimen / Unknown Venipuncture / Unknown 03/22/2025 6:08 AM EDT 03/22/2025 9:27 AM EDT us Peg Yañez MD LAB BLOOD ORDERABLES Final Resul t [facility] [address] [place] [address], documented in this encounter Visit Diagnoses Diagnosis Hypotension, unspecified documented in this encounter Care Teams Induction Machine Operator Relationship Specialty Start Date End Date Edwin Allen MD [address] [place] [address] [address] [facility] [place] [address] PCP - General Internal Medicine 10/26/18 documented as of this encounter
--- OUTSIDE RECORDS SUMMARY | 2025-10-17 01:01 | XMS_ITS | Encounter Summary ---
Author Organization [facility] Address [address] [place] [address] Care Team Providers Care Dress Cutter Name Role Phone Edwin Allen MD Primary Care Provider [phone] Encounter Details Date Type Department Care Team (Late st Contact Info) Description 03/23/2025 Lab Requisition [facility] - Main Lab [address] [facility] [place] [address] Cindy Thomas PA [address] [place] [address] [facility] [place] [address] Urinary tract infection, site not specified Social [...] reflex microscopic (03/23/2025 12:00 AM EDT) Specific [place] Urine 1.014 1.003 - 1.030 LAB URINALYSIS - AUTOMATED METHOD 03/23/2025 11:03 AM [facility] pH, Urine 6.5 5.0 - 8.0 pH LAB URINALYSIS - AUTOMATED METHOD 03/23/2025 11:03 AM [facility] Leukocytes, Urine Large(A) Negative LAB URINALYSIS - AUTOMATED METHOD 03/23/2025 11:03 AM [facility] Nitrite, Urine Positive(A) Negative LAB URINALYSIS - AUTOMATED METHOD 03/23/2025 11:03 AM [facility] Protein, Urine Negative <=Trace mg/dL LAB URINALYSIS - AUTOMATED METHOD 03/23/2025 11:03 AM [facility] Glucose, Urine Negative Negative mg/dL LAB URINALYSIS - AUTOMATED METHOD 03/23/2025 11:03 AM [facility] Ketones, Urine Negative Negative mg/dL LAB URINALYSIS - AUTOMATED METHOD 03/23/2025 11:03 AM [facility] Urobilinogen , Urine 1.0 0.2 - 1.0 mg/dL LAB URINALYSIS - AUTOMATED METHOD 03/23/2025 11:03 AM [facility] Bilirubin, Urine Negative Negative LAB URINALYSIS - AUTOMATED METHOD 03/23/2025 11:03 AM [facility] Blood, Urine Trace(A) Negative LAB URINALYSIS - AUTOMATED METHOD 03/23/2025 11:03 AM [facility] RBC, Urine 2.8 0 - 4 /HPF LAB URINALYSIS - AUTOMATED METHOD 03/23/2025 11:03 AM [facility] WBC, Urine 51.0(H) 0 - 4 /HPF LAB URINALYSIS - AUTOMATED METHOD 03/23/2025 11:03 AM [facility] Squamous Epithelial, Urine 4 0 - 60 /LPF LAB URINALYSIS - AUTOMATED METHOD 03/23/2025 11:03 AM EDT [facility] Bacteria, Urine Many(A) Negative /HPF LAB URINALYSIS - AUTOMATED METHOD 03/23/2025 11:03 AM EDT [facility] Hyaline Casts, Urine 2.4 0 - 3 /LPF LAB URINALYSIS - AUTOMATED METHOD 03/23/2025 11:03 AM EDT [facility] Urine Urine specimen obtained by clean catch procedure / Unknown Non-blood Collection / Unknown 03/23/2025 03/23/2025 10:35 AM EDT us Cindy ROWE LAB URINE ORDERABLES Final Resu lt [facility] [address] [place] [address], [place] [phone] * (ABNORMAL) Culture urine (03/23/2025 12:00 AM EDT) Culture, Urine >100,000 CFU/mL Escherichia coli(A) NENA 03/25/2025 11:32 AM EDT [facility] Urine Urine specimen obtained by [...] MICROBIOLOGY - GENERAL ALYCIA TOBIAS Final Result [facility] [address] [place] [address], documented in this encounter Visit Diagnoses Diagnosis Urinary tract infection, site not specified documented in this encounter Care Teams Dress Cutter Relationship Specialty Start Date End Date Edwin Allen MD [address] [place] [address] Dr [address] [facility] [place] [address] PCP - General Internal Medicine 10/26/18 documented as of this encounter
--- OUTSIDE RECORDS SUMMARY | 2025-10-17 01:02 | XMS_ITS | Encounter Summary ---
Author Organization [facility] Address [address] [place] [address] Care Team Providers Care Electric Tape Slitter Name Role Phone Edwin Allen MD Primary Care Provider [phone] Encounter Details Date Type Department Care Team (Late st Contact Info) Description 03/13/2025 Lab Requisition [facility] - Main Lab 299 [facility] [place] [address] Peg Yañez MD [address] [place] [address] Heart failure, unspecified (CMS/HCC V24, [...] AM EDT Heart failure, unspecified (CMS/HCC V24, [facility] V28) COMPREHENSIVE METABOLIC PANEL Routine 03/13/2025 5:29 AM EDT Heart failure, unspecified ([facility]/HCC V24, CMS/HCC V28) documented in this encounter Results * (ABNORMAL) Folate (03/13/2025 5:29 AM EDT) [facility] Folate >20.0(H) 2.8 - 17.0 ng/ml LAB CHEMISTRY METHOD 03/13/2025 3:05 PM EDT [facility] Blood Venous blood specimen / Unknown Venipuncture / Unknown 03/13/2025 5:29 AM EDT 03/13/2025 11:41 AM EDT us Peg Yañez MD LAB BLOOD ORDERABLES Final Resul t Performing Organization Address City/[facility]/ZIP Co de Phone Number [facility] [address] [place] [address], [place] [phone] * Vitamin B12 (03/13/2025 5:29 AM EDT) [facility] Vitamin B-12 813 250 - 900 pcg/mL LAB CHEMISTRY METHOD 03/13/2025 3:05 PM EDT [facility] Blood Venous blood specimen / Unknown Venipuncture / Unknown 03/13/2025 5:29 AM EDT 03/13/2025 11:41 AM EDT us Peg Yañez MD LAB BLOOD ORDERABLES Final Resul t Performing Organization Address City/[facility]/ZIP Co de Phone Number [facility] [address] [place] [address], [place] [phone] * (ABNORMAL) Thyroid stimulating hormone (03/13/2025 5:29 AM EDT) [facility] TSH 0.11(L) 0.40 - 4.00 mcIU/mL LAB CHEMISTRY METHOD 03/13/2025 3:59 PM [facility] Blood Venous blood specimen / Unknown Venipuncture / Unknown 03/13/2025 5:29 AM EDT 03/13/2025 11:41 AM EDT us Peg Yañez MD LAB BLOOD ORDERABLES Final Resul t [facility] [address] [place] [address], [place] [phone] * (ABNORMAL) Comprehensive metabolic panel (03/13/2025 5:29 AM EDT) Sodium 137 133 - 145 mmol/L LAB CHEMISTRY METHOD 03/13/2025 3:05 PM [facility] Potassium 3.5 3.5 - 5.5 mmol/L LAB CHEMISTRY METHOD 03/13/2025 3:05 PM [facility] Chloride 100 96 - 110 mmol/L LAB CHEMISTRY METHOD 03/13/2025 3:05 PM [facility] CO2 28 21 - 32 mmol/L LAB CHEMISTRY METHOD 03/13/2025 3:05 PM [facility] Anion Gap 9 3 - 11 LAB CHEMISTRY METHOD 03/13/2025 3:05 PM [facility] Glucose 69(L) 70 - 100 mg/dL LAB CHEMISTRY METHOD 03/13/2025 3:05 PM [facility] BUN 33(H) 5 - 25 mg/dL LAB CHEMISTRY METHOD 03/13/2025 3:05 PM [facility] Creatinine 1.40(H) 0.50 - 1.10 mg/dL LAB CHEMISTRY METHOD 03/13/2025 3:05 PM [facility] eGFR 37(L) >=60 mL/min/1. 73m2 LAB CHEMISTRY METHOD 03/13/2025 3:05 PM [facility] Comment:Calculation based on the Chronic Kidney Disease Epidemiology Collaboration (CKD-EPI) equation refit without adjustment for race. BUN/Creatinine Ratio 23.6 LAB CHEMISTRY METHOD 03/13/2025 3:05 PM [facility] Calcium 8.7 8.5 - 10.5 mg/dL LAB CHEMISTRY METHOD 03/13/2025 3:05 PM [facility] AST (SGOT) 20 10 - 42 unit/L LAB CHEMISTRY METHOD 03/13/2025 3:05 PM [facility] ALT (SGPT) 16 10 - 60 unit/L LAB CHEMISTRY METHOD 03/13/2025 3:05 PM [facility] Alkaline Phosphatase 99 42 - 121 unit/L LAB CHEMISTRY METHOD 03/13/2025 3:05 PM [facility] Total Protein 6.7 6.0 - 8.0 g/dL LAB CHEMISTRY METHOD 03/13/2025 3:05 PM [facility] Albumin 2.6(L) 3.2 - 5.0 g/dL LAB CHEMISTRY METHOD 03/13/2025 3:05 PM [facility] Total Bilirubin 0.9 0.0 - 1.4 mg/dL LAB CHEMISTRY METHOD 03/13/2025 3:05 PM [facility] Blood Venous blood specimen / Unknown Venipuncture / Unknown 03/13/2025 5:29 AM EDT 03/13/2025 11:41 AM EDT us Peg Yañez MD LAB BLOOD ORDERABLES Final Resul t [facility] [address] [place] [address], * (ABNORMAL) Complete blood count (03/13/2025 5:29 AM EDT) Pathologist [facility] WBC 7.4 4.8 - 10.8 K/mcL LAB HEMETOLOGY METHOD 03/13/2025 12:46 PM [facility] RBC 3.80 3.80 - 4.80 M/mcL LAB HEMETOLOGY METHOD 03/13/2025 12:46 PM [facility] Hemoglobin 11.6 11.5 - 16.0 g/dL LAB HEMETOLOGY METHOD 03/13/2025 12:46 PM [facility] Hematocrit 35.0 35.0 - 47.0 % LAB HEMETOLOGY METHOD 03/13/2025 12:46 PM [facility] MCV 92.1 79.0 - 98.0 FL LAB HEMETOLOGY METHOD 03/13/2025 12:46 PM [facility] MCH 30.5 27.0 - 32.0 pcg LAB HEMETOLOGY METHOD 03/13/2025 12:46 PM [facility] MCHC 33.1 32.0 - 37.0 g/dL LAB HEMETOLOGY METHOD 03/13/2025 12:46 PM [facility] RDW 13.8 11.0 - 15.0 % LAB HEMETOLOGY METHOD 03/13/2025 12:46 PM [facility] Platelets 262 130 - 400 K/[facility] LAB HEMETOLOGY METHOD 03/13/2025 12:46 PM [facility] MPV 11.1(H) 7.0 - 11.0 FL LAB HEMETOLOGY METHOD 03/13/2025 12:46 PM [facility] NRBC 0.0 <1.0 % LAB HEMETOLOGY METHOD 03/13/2025 12:46 PM [facility] NRBC Absolute 0.00 <0.10 K/[facility] LAB HEMETOLOGY METHOD 03/13/2025 12:46 PM [facility] Blood Venous blood specimen / Unknown Venipuncture / Unknown 03/13/2025 5:29 AM EDT 03/13/2025 11:41 AM EDT Peg Yañez MD LAB BLOOD ORDERABLES Final Resul t [facility] [address] [place] [address], documented in this encounter Visit Diagnoses Diagnosis Heart failure, unspecified (CMS/HCC V24, CMS/HCC V28) Heart failure, unspecified documented in this encounter Care Teams Electric Tape Slitter Relationship Specialty Start Date End Date Edwin Allen MD [address] [place] [address] [address] [facility] [place] [address] PCP - General Internal Medicine 10/26/18 documented as of this encounter
--- OUTSIDE RECORDS SUMMARY | 2025-10-17 01:03 | XMS_ITS | Encounter Summary ---
Author Organization [facility] Address [address] [place] [address] Care Team Providers Care Wood Lather Name Role Phone Edwin Allen MD Primary Care Provider [phone] Encounter Details Date Type Department Care Team (Late st Contact Info) Description 03/18/2025 Lab Requisition [facility] - Main Lab 299 [facility] [place] [address] Peg Yañez MD [address] [place] [address] Heart failure, unspecified (CMS/HCC [...] Resul t [facility] [address] [place] [address], * Complete blood count (03/20/2025 5:06 AM EDT) [facility] WBC 6.9 4.8 - 10.8 K/mcL LAB HEMETOLOGY METHOD 03/20/2025 11:56 AM EDT [facility] RBC 4.00 3.80 - 4.80 M/mcL LAB HEMETOLOGY METHOD 03/20/2025 11:56 AM EDT [facility] Hemoglobin 12.0 11.5 - 16.0 g/dL LAB HEMETOLOGY METHOD [facility]25 [facility] Hematocrit 36.3 35.0 - 47.0 % LAB HEMETOLOGY METHOD 03/20/2025 [facility] MCV 90.5 79.0 - 98.0 FL LAB HEMETOLOGY METHOD 03/20/2025 11:56 AM EDT [facility] MCH 29.9 27.0 - 32.0 pcg LAB HEMETOLOGY METHOD 03/20/2025 11:[address] [facility] MCHC 33.1 32.0 - 37.0 g/dL LAB HEMETOLOGY METHOD 03/20/2025 11[facility] RDW 13.9 11.0 - 15.0 [...] t [facility] [address] [place] [address], documented in this encounter Visit Diagnoses Diagnosis Heart failure, unspecified (CMS/HCC V24, CMS/HCC V28) Heart failure, unspecified documented in this encounter Care Teams Wood Lather Relationship Specialty Start Date End Date Edwin Allen MD [address] [place] [address] [address] [facility] [place] [address] PCP - General Internal Medicine 10/26/18 documented as of this encounter
--- OUTSIDE RECORDS SUMMARY | 2025-10-17 01:03 | XMS_ITS | Encounter Summary ---
Author Organization [facility] Address [address] [place] [address] Care Team Providers Care Stuffed Casing Tier Name Role Phone Edwin Allen MD Primary Care Provider [phone] Encounter Details Date Type Department Care Team (Late st Contact Info) Description 03/31/2025 Lab Requisition [facility] - Main Lab 299 [facility] [place] [address] Peg Yañez MD [address] [place], [place] [id number] Heart failure, unspecified (CMS/HCC V24, CMS/HCC V28) [...] unspecified documented in this encounter Care Teams Stuffed Casing Tier Relationship Specialty Start Date End Date Edwin Allen MD [address] [place] [address] [address] [facility] [place] [address] PCP - General Internal Medicine 10/26/18 documented as of this encounter
--- OUTSIDE RECORDS SUMMARY | 2025-10-17 01:04 | XMS_ITS | Clinical Summary ---
Author Organization [address] [place] [address] Address [address] [place] [address] Phone Care Team Providers Care Varnish Melter Helper Name Role Phone Edwin Allen MD Primary Care Provider [phone] Allergies No known active allergies Medications CALCIUM [...] Date Diagnosed Date PAD (peripheral artery disease) ([facility] V24) Social History [...] AM EDT Heart failure, unspecified (CMS/HCC V24, [facility] V28) from Last 3 Months or Most Recently Relevant to Health Maintenance Results * (ABNORMAL) Basic metabolic panel (03/27/2025 5:06 AM EDT) Sodium 137 133 - 145 mmol/L LAB CHEMISTRY METHOD 03/27/2025 1:58 PM [facility] Potassium 4.1 3.5 - 5.5 mmol/L LAB CHEMISTRY METHOD 03/27/2025 1:58 PM [facility] Chloride 104 96 - 110 mmol/L LAB CHEMISTRY METHOD 03/27/2025 1:58 PM [facility] CO2 25 21 - 32 mmol/L LAB CHEMISTRY METHOD 03/27/2025 1:58 PM [facility] Anion Gap 8 3 - 11 LAB CHEMISTRY METHOD 03/27/2025 1:58 PM [facility] Glucose 76 70 - 100 mg/dL LAB CHEMISTRY METHOD 03/27/2025 1:58 PM [facility] BUN 17 5 - 25 mg/dL LAB CHEMISTRY METHOD 03/27/2025 1:58 PM [facility] Creatinine 1.16(H) 0.50 - 1.10 mg/dL LAB CHEMISTRY METHOD 03/27/2025 1:58 PM [facility] eGFR 47(L) >=60 mL/min/1. 73m2 LAB CHEMISTRY METHOD 03/27/2025 1:58 PM [facility] Comment:Calculation based on the Chronic Kidney Disease Epidemiology Collaboration (CKD-EPI) equation refit without adjustment for race. BUN/Creatinine Ratio 14.7 LAB CHEMISTRY METHOD 03/27/2025 1:58 PM [facility] Calcium 8.4(L) 8.5 - 10.5 mg/dL LAB CHEMISTRY METHOD 03/27/2025 1:58 PM [facility] Blood Venous blood specimen / Unknown Venipuncture / Unknown 03/27/2025 5:06 AM EDT 03/27/2025 10:13 AM EDT Peg Yañez MD LAB BLOOD ORDERABLES Final Resul t [facility] [address] [place] [address], from Last 3 Months or Most Recently Relevant to Health Maintenance Insurance [place] [address] [facility] MEDICARE MEDICAID - [place] Advance Directives Documents on File Type Date Recorded Patient Manager Java Expl anation Health Care Decision (hx) 03/13/2018 AD RODY DIRECTIVE Care Teams Varnish Melter Helper Relationship Specialty Start Date End Date Edwin Allen MD [address] [place] [address] [address] [facility] [place] [address] PCP - General Internal Medicine 10/26/18
--- OUTSIDE RECORDS SUMMARY | 2025-10-17 01:04 | XMS_ITS | Encounter Summary ---
Author Organization [facility] Address [address] [place] [address] Care Team Providers Care Therapist Name Role Phone Edwin Allen MD Primary Care Provider [phone] Encounter Details Date Type Department Care Team (Late st Contact Info) Description 03/24/2025 Lab Requisition [facility] - Main Lab 299 [facility] [place] [address] Peg Yañez MD [address] [place] [address] Heart failure, unspecified (CMS/HCC V24, [...] mmol/L LAB CHEMISTRY METHOD 03/27/2025 1:58 PM [facility] CO2 25 21 - 32 mmol/L LAB CHEMISTRY METHOD 03/27/2025 1:58 PM [facility] Anion Gap 8 3 - 11 LAB CHEMISTRY METHOD 03/27/2025 1:58 PM [facility] Glucose 76 70 - 100 mg/dL LAB CHEMISTRY METHOD 03/27/2025 1:58 PM [facility] BUN 17 5 - 25 mg/dL LAB CHEMISTRY METHOD 03/27/2025 1:58 PM [facility] Creatinine 1.16(H) 0.50 - 1.10 mg/dL LAB CHEMISTRY METHOD 03/27/2025 1:58 PM [facility] eGFR 47(L) >=60 mL/min/1. 73m2 LAB CHEMISTRY METHOD 03/27/2025 1:58 PM [facility] Comment:Calculation based on the Chronic Kidney Disease Epidemiology Collaboration (CKD-EPI) equation refit without adjustment for race. BUN/Creatinine Ratio 14.7 LAB CHEMISTRY METHOD 03/27/2025 1:58 PM [facility] Calcium 8.4(L) 8.5 - 10.5 mg/dL LAB CHEMISTRY METHOD 03/27/2025 1:58 PM [facility] Blood Venous blood specimen / Unknown Venipuncture / Unknown 03/27/2025 5:06 AM EDT 03/27/2025 10:13 AM EDT us Peg Yañez MD LAB BLOOD ORDERABLES Final Resul t [facility] [address] [place] [address], * (ABNORMAL) Complete blood count (03/27/2025 5:06 AM EDT) [facility] Signature WBC 6.7 4.8 - 10.8 K/mcL LAB HEMETOLOGY METHOD 03/27/2025 11:09 AM [facility] RBC 3.60(L) 3.80 - 4.80 M/mcL LAB HEMETOLOGY METHOD 03/27/2025 11:09 AM [facility] Hemoglobin 11.0(L) 11.5 - 16.0 g/dL LAB HEMETOLOGY METHOD 03/27/2025 11:09 AM [facility] Hematocrit 33.3(L) 35.0 - 47.0 % LAB HEMETOLOGY METHOD 03/27/2025 11:09 AM [facility] MCV 92.5 79.0 - 98.0 FL LAB HEMETOLOGY METHOD 03/27/2025 11:09 AM [facility] MCH 30.6 27.0 - 32.0 pcg LAB HEMETOLOGY METHOD 03/27/2025 11:09 AM [facility] MCHC 33.0 32.0 - 37.0 g/dL LAB HEMETOLOGY METHOD 03/27/2025 11:09 AM [facility] RDW 14.0 11.0 - 15.0 % LAB HEMETOLOGY METHOD 03/27/2025 11:09 AM [facility] Platelets 203 130 - 400 K/mcL LAB HEMETOLOGY METHOD 03/27/2025 11:09 AM [facility] MPV 10.8 7.0 - 11.0 FL LAB HEMETOLOGY METHOD 03/27/2025 11:09 AM [facility] NRBC 0.0 <1.0 % [...] Resul t [facility] [address] [place] [address], documented in this encounter Visit Diagnoses Diagnosis Heart failure, unspecified (CMS/HCC V24, CMS/HCC V28) Heart failure, unspecified documented in this encounter Care Teams Therapist Relationship Specialty Start Date End Date Edwin Allen MD [address] [place] [address] [address] [facility] [place] [address] PCP - General Internal Medicine 10/26/18 documented as of this encounter
--- OUTSIDE RECORDS SUMMARY | 2025-10-17 01:05 | XMS_ITS | Encounter Summary ---
Author Organization [facility] Address [address] [place] [address] Care Team Providers Care Apprentice Pattern Maker Name Role Phone Edwin Allen MD Primary Care Provider [phone] Encounter Details Date Type Department Care Team (Late st Contact Info) Description 03/23/[address] [facility] - Main Lab 299 [facility] [place] [address] Peg Yañez MD [address] [place], [place] [id number] Essential (primary) hypertension Social History Tobacco Use [...] LAB CHEMISTRY METHOD 03/24/2025 8:39 AM EDT [facility] Potassium 4.1 3.5 - 5.5 mmol/L LAB CHEMISTRY METHOD 03/24/2025 8:39 AM [facility] Chloride 107 96 - 110 mmol/L LAB CHEMISTRY METHOD 03/24/2025 8:39 AM [facility] CO2 26 21 - 32 mmol/L LAB CHEMISTRY METHOD 03/24/2025 8:39 AM [facility] Anion Gap 6 3 - 11 LAB CHEMISTRY METHOD 03/24/2025 8:39 AM [facility] Glucose 80 70 - 100 mg/dL LAB CHEMISTRY METHOD 03/24/2025 8:39 AM [facility] BUN 25 5 - 25 mg/dL LAB CHEMISTRY METHOD 03/24/2025 8:39 AM [facility] Creatinine 1.37(H) 0.50 - 1.10 mg/dL LAB CHEMISTRY METHOD 03/24/2025 8:39 AM [facility] eGFR 38(L) >=60 mL/min/1. 73m2 LAB CHEMISTRY METHOD 03/24/2025 8:39 AM [facility] Comment:Calculation based on the Chronic Kidney Disease Epidemiology Collaboration (CKD-EPI) equation refit without adjustment for race. BUN/Creatinine Ratio 18.2 LAB CHEMISTRY METHOD 03/24/2025 8:39 AM [facility] Calcium 8.5 8.5 - 10.5 mg/dL LAB CHEMISTRY METHOD 03/24/2025 8:39 AM [facility] Blood Venous blood specimen / Unknown Venipuncture / Unknown 03/24/2025 4:36 AM EDT 03/24/2025 7:55 AM EDT us Peg Yañez MD LAB BLOOD ORDERABLES Final Resul t [facility] [address] [place] [address], * (ABNORMAL) Complete blood count (03/24/2025 4:36 AM EDT) [facility] WBC 6.9 4.8 - 10.8 K/mcL LAB HEMETOLOGY METHOD 03/24/2025 8:12 AM [facility] RBC 3.30(L) 3.80 - 4.80 M/mcL LAB HEMETOLOGY METHOD 03/24/2025 8:12 AM [facility] Hemoglobin 10.3(L) 11.5 - 16.0 g/dL LAB HEMETOLOGY METHOD 03/24/2025 8:12 AM [facility] Hematocrit 30.6(L) 35.0 - 47.0 % LAB HEMETOLOGY METHOD 03/24/2025 8:12 AM [facility] MCV 91.6 79.0 - 98.0 FL LAB HEMETOLOGY METHOD 03/24/2025 8:12 AM [facility] MCH 30.8 27.0 - 32.0 pcg LAB HEMETOLOGY METHOD 03/24/2025 8:12 AM [facility] MCHC 33.7 32.0 - 37.0 g/dL LAB HEMETOLOGY METHOD 03/24/2025 8:12 AM [facility] RDW 14.2 11.0 - 15.0 % LAB HEMETOLOGY METHOD 03/24/2025 8:12 AM [facility] Platelets 212 130 - 400 K/mcL LAB HEMETOLOGY METHOD 03/24/2025 8:12 AM [facility] MPV 10.6 7.0 - 11.0 FL LAB HEMETOLOGY METHOD 03/24/2025 8:12 AM [facility] NRBC 0.0 <1.0 % LAB HEMETOLOGY METHOD 03/24/2025 8:12 AM [facility] NRBC Absolute 0.00 <0.10 K/mcL LAB HEMETOLOGY METHOD 03/24/2025 8:12 AM EDT [facility] Blood Venous blood specimen / Unknown Venipuncture / Unknown 03/24/2025 4:36 AM EDT 03/24/2025 7:55 AM EDT us Peg Yañez MD LAB BLOOD ORDERABLES Final Resul t [facility] [address] [place] [address], documented in this encounter Visit Diagnoses Diagnosis Essential (primary) hypertension Unspecified essential hypertension documented in this encounter Care Teams Apprentice Pattern Maker Relationship Specialty Start Date End Date Edwin Allen MD [address] [place] [address] [address] [facility] [place] [address] PCP - General Internal Medicine 10/26/18 documented as of this encounter
== END 2025-10-16 12:31 | disposition home or self-care (01) ==
LOC: HO.US 12:30
PROVIDERS: PCP Internal Medicine; Visit Provider Surgery Vascular Surgery
DX: I73.9 Peripheral vascular disease, unspecified (principal)
CPT/HCPCS: 93922; 93925

== ENCOUNTER → 2025-10-16 12:32 | Outpatient (BNV) | payer MEDICARE, SELFPAY ==
[2022-10-20 12:25] VITALS: BP 116/64; BMI 28.6
== END ==
PROVIDERS: PCP Internal Medicine; Visit Provider Radiology Diagnostic Radiology
DX: I73.9 Peripheral vascular disease, unspecified (principal)
CPT/HCPCS: 93922; 93925